=== PATIENT | female | born 1935 | race Caucasian/White ===

== ENCOUNTER 2023-06-28 10:31 | Outpatient (OUT) | payer MEDICARE, OTHER, SELFPAY ==
--- NOTE | 2023-06-28 10:34 | XR_ITS ---
[address] [address] Patient Name: JAMES WEAVER MRN: [id number] date: 1935 Sex: F Assigned Patient Location: [facility] Current Patient Location: [facility] Accession/Order Number: [id number] Exam Date: 06/28/2023 10:45 Report Date: 06/28/2023 21:00 At the request of: SHERLY MARTINEZ Procedure: XR DEXA axial skeleton EXAMINATION: XR DEXA axial skeleton, 06/28/2023 10:45 AM EDT HISTORY: Age Related Osteoporosis M81.0 COMPARISON: 2020, 2018, 2016 TECHNIQUE: Dual-energy X-ray absorptiometry (DEXA) bone density study performed for the axial skeleton. HISTORY: Age Related Osteoporosis M81.0 FINDINGS: Bone mineral density left forearm radius measures 0.488 g/sq cm. T score -3.2. WHO classification: Osteoporosis. Total bilateral femurs mean density of 0.788 g/sq cm. T score -1.7. WHO classification: Osteopenia XR/XR DEXA axial skeleton IMPRESSION: Osteoporosis. High fracture risk Electronically authenticated by: DANTE LAMAS Date: 06/28/2023 21:00
== END 2023-06-28 10:32 | disposition home or self-care (01) ==
LOC: RAD 10:32
PROVIDERS: PCP Internal Medicine; Visit Provider Physician Assistant
DX: M81.0 Age-related osteoporosis without current pathological fracture (principal)
CPT/HCPCS: 77080

== ENCOUNTER 2023-07-07 13:12 | Outpatient (OUT) | payer MEDICARE, OTHER, SELFPAY ==
--- NOTE | 2023-07-07 13:57 | PM.CN ---
Consult Note: HPI Data of Consult Patient: new to practice Requesting Physician: Candie Merchant NP Primary Care Provider: MARCOS SANTOS Consult Narrative Reason for consult: f/u Narrative: Elizabeth Ramirez a pleasant 87 year old female presents for evaluation and management of chronic left knee pain. Patient has had greater than 6 months of pain relief in the past from gel knee injections, unfortunately she received a steroid injection in left knee on 06/20/23 with 1 week of pain relief that did not provide sustaining relief. Patient rating pain today 1/10, gets up to 8/10 in left knee. Patient would like to discuss repeating gel injection. cc:: CC: Candie Merchant NP Review of Systems ROS Status of ROS 10 or more systems reviewed and unremarkable except as noted in history and below Musculoskeletal Reports: joint pain Exam Constitutional Documenting provider has reviewed patient's vital signs: yes Common normals: no apparent distress, oriented x3, healthy appearing, alert and well nourished General appearance: cooperative HENMT Common normals: normocephalic, hearing grossly normal bilaterally and moist oral mucous membranes Head and scalp: normocephalic Eye Common normals: PERRL Pupil: PERRL Neck & C-Spine Common normals: full ROM General: normal visual inspection Chest Common normals: inspection of chest normal Respiratory Common normals: normal respiratory effort, no retractions and no use of accessory muscles Extremity Left lower extremity: knee joint (crepitus on exam, enlarged diameter, mild edema. ) Other: pain ROM and ambulation in left knee Neuro Common normals: oriented x3, CN's II-XII intact bilaterally, moves all extremities, no focal motor deficits, no sensory deficits noted and deep tendon reflexes 2+ bilaterally Sensorium/orientation: alert Motor exam: strength 5/5 throughout and no movement abnormalities noted Psych Common normals: mental status grossly normal, thought process normal, cooperative, affect normal, speech normal and activity/motor behavior normal Speech: normal speech Thought process: normal thought process Assessment and Plan Assessment and Plan (1) Osteoarthritis: Plan left knee injection with viscous supplementation with Dr Varma
== END 2023-07-07 13:13 | disposition home or self-care (01) ==
LOC: PM 13:12
PROVIDERS: PCP Internal Medicine; Visit Provider Nurse Practitioner
DX: M17.12 Unilateral primary osteoarthritis, left knee (principal)
CPT/HCPCS: G0463

== ENCOUNTER 2023-07-25 13:50 | Outpatient (OUT) | payer MEDICARE, OTHER, SELFPAY ==
--- NOTE | 2023-07-25 14:21 | PM.CN ---
Consult Note: HPI Data of Consult Patient: known to practice within the last 3 years Consult date: 07/25/23 Requesting Physician: Seymour Varma MD Primary Care Provider: MARCOS SANTOS Consult Narrative Reason for consult: left knee pain Narrative: 87yof who presents for assessment. continues to have significant left knee pain. imaging reviewed, which is significant for left knee osteoarthritis. previously discussed left knee injection and is interested in proceeding. continues to stay active at home. cc:: CC: Seymour Varma MD Review of Systems ROS Status of ROS 10 or more systems reviewed and unremarkable except as noted in history and below Exam Narrative Exam Narrative: Psych-alert and oriented x 3.? Attentive and appropriate, constitutionally normal, displays normal mood and affect per situation.? There are no obvious deficits in memory, reasoning, or intellect. Extremities-lower extremities are warm with minimal edema and palpable pulses. Knee-examination of the left knee reveals tenderness to palpation over the superior, inferior, lateral, and medial aspect of the knee.? Some swelling is noted without erythema. Pain is elicited with flexion and extension of the knee both actively and passively.? Some grinding is noted with these motions.? There is no notable ligamental laxity or instability.? Coordination remains intact.? Gait remains antalgic. Constitutional Common normals: no apparent distress, oriented x3 and healthy appearing Respiratory Common normals: normal respiratory effort Effort & inspection: able to speak in complete sentences Extremity Common normals: normal to inspection Neuro Common normals: oriented x3, CN's II-XII intact bilaterally and no focal motor deficits Psych Common normals: mental status grossly normal and cooperative Assessment and Plan Assessment and Plan (1) Osteoarthritis of left knee: Plan 87yof who presents for assessment. failed conservative measures. continues to have left knee pain. has had previous relief with left knee injection, so will repeat today. she is in agreement. medications reviewed, no changes. follow up in 3 months. Procedure: Left knee injection Medication: Durolane (hyaluronic acid) I explained the details of the procedure to the patient including the risks, benefits and alternatives. We had an informed discussion and the patient verbalized understanding and signed the consent form. All questions were answered appropriately.? A time out was performed.? After obtaining a comfortable seated position, the left knee was prepped with alcohol x3. A syringe containing the above medication was attached to a 25 guage, 1.5 inch needle under strict aseptic technique. The lateral tibial plateau was palpated.? The needle was then advanced through the subcutaneous tissue in a medial and superior direction towards the joint space.? The contents of the syringe were gently injected without any resistance. The needle was removed and pressure was applied to the injection site to decrease the incidence of ecchymosis and hematoma formation.? A sterile bandage was applied.
== END 2023-07-25 13:51 | disposition home or self-care (01) ==
LOC: PM 13:50
PROVIDERS: PCP Internal Medicine; Visit Provider Anesthesiology
DX: M17.12 Unilateral primary osteoarthritis, left knee (principal)
CPT/HCPCS: 20610; J7318

== ENCOUNTER 2023-10-26 10:48 | Outpatient (OUT) | payer MEDICARE, OTHER, SELFPAY ==
--- OUTSIDE RECORDS SUMMARY | 2023-10-26 11:15 | XMS_ITS | CCD ---
Author Name Unknown Address [address] [place] [address] [facility] Team Providers Care Front Office Supervisor Name Role Phone Sadiq Barton Unavailable Dante Renee Unavailable NILCinthia, DR LOPEZ Attending Unavailable AMBRIZ, DR RODRÍGUEZ Consulting Unavailable AMBRIZ, DR RODRÍGUEZ Primary Care Unavailable NILL, DR LOPEZ Admitting Unavailable NILL, DR LOPEZ Consulting Unavailable AMBRIZ, DR RODRÍGUEZ Primary Care Unavailable NADERER, DR AKIKO Wheat Admitting Unavailable DEANN, DR JORGE LUIS Adair Consulting Unavailable TANIEREMana, DR AKIKO Wheat Attending Unavailable BE, DR ADONAY Hu Consulting Unavailable ADAMS, DR DANTE Smith Consulting Unavailable NADERER, DR AKIKO Wheat Consulting Unavailable RUTLEDGE, ARNEL Consulting Unavailable RODRIGUEZ, WINCHA Consulting Unavailable NASCIMENTO, DAYANNA Consulting Unavailable DITTKannan, SADIQ Consulting Unavailable RYNE, SADIQ Attending Unavailable DISADIQ CARRION Admitting Unavailable AMBRIZ, DR RODRÍGUEZ Primary Care Unavailable NILL, DR LOPEZ Consulting Unavailable NILL, DR LOPEZ Attending Unavailable NILL, DR LOPEZ Admitting Unavailable AMBRIZ, DR RODRÍGUEZ Primary Care Unavailable NILL, DR LOPEZ Consulting Unavailable DEXTER TAY Attending Unavailable JASVIR, DEXTER Admitting Unavailable AMBRIZ, DR RODRÍGUEZ Primary Care Unavailable JASVIR, DEXTER Consulting Unavailable JASVIR, DEXTER Consulting Unavailable JASVIR, DEXTER Attending Unavailable DEXTER TAY Admitting Unavailable AMBRIZ, DR RODRÍGUEZ Primary Care Unavailable NILL, DR LOPEZ Consulting Unavailable NILL, DR LOPEZ Attending Unavailable DANIELLE, DR RODRÍGUEZ Primary Care Unavailable NILL, DR LOPEZ Admitting Unavailable NILL, DR LOPEZ Consulting Unavailable NILL, DR LOPEZ Attending Unavailable AMBRIZ, DR RODRÍGUEZ Primary Care Unavailable NILL, DR LOPEZ Admitting Unavailable MAGNOLIA RAUSCH Consulting Unavailable MD Fernando Diamond Emergency Provider LEANN Ambriz Primary Care Provider [phone] Fernando Diamond Attending Unavailable Fernando Diamond Admitting Unavailable Conrado Ambriz Primary Care Unavailable VELASQUEZ MORALES Attending Unavailable CONRADO AMBRIZ Attending Unavailable VELASQUEZ MORALES Attending Unavailable Allergies Allergy Classification Reported Allergen(s) Allergy Type Date of Onset Reaction(s) Facility (2 sources) Adhesive agent Drug allergy Unknown [facility] Other (2 sources) Ciprofloxacin Drug Allergy Unknown [facility] Other (3 sources) HYLAN G-F 20 Drug Allergy 12-14-19 23 [facility] (3 sources) moxifloxacin Drug Allergy 12-14-19 23 hives [facility] (3 sources) Simvastatin Drug Allergy 12-14-19 stomach upset, Diarrhea/Vomit [facility] (2 sources) Temazepam Drug Allergy rash, sore mouth [facility] Other (1 source) Ciprofloxacin Drug Allergy [facility] (1 source) HYLAN G-F 20 Drug Allergy 12-12-19 15 [facility] (1 source) moxifloxacin Drug Allergy 06-08-19 90 [facility] (1 source) Simvastatin Drug Allergy 12-12-19 15 [facility] (1 source) bandaid Allergy to substance 12-14-19 [facility] Medications Current Medications Medication Drug Class(es) Dates Sig (Normalized) Sig (Original) 8 hr acetaminophen 650 mg extended release oral tablet (1 source) Start: 09-09-2021 Acetaminophen (Tylenol 8 Hour) 650 mg Tablet Extended Release Active 1300 MG PO Twice daily September 09, 2021 1:00am amLODIPine 5 mg oral tablet (3 sources) Dihydropyridine Calcium Channel Dasia Start: 09-09-2021 take 5 mg by mouth once daily Amlodipine Active 5 MG PO Daily September 09, 2021 1:00am take 1 tablet by erika th every twenty-four hours amLODIPine Besylate 5 MG 1 tablet Orally Once a day Active baclofen 10 mg oral tablet (2 sources) gamma-Aminobutyric Acid-ergic Agonist take 2 tablets by mouth once daily at mealtime Baclofen 10 MG 2 tablets with food or milk Orally Once a day Active benazepril hydrochloride 20 mg oral tablet (3 sources) Angiotensin Converting Enzyme Inhibitor Start: 022 take 20 mg by mouth once daily Benazepril Active 20 MG PO Daily September 09, 2021 1:00am take 1 tablet by erika th every twenty-four hours Benazepril HCl 20 MG 1 tablet Orally Onc e a day Active Calcium (2 sources) Phosphate Binder, Calcium Calcium + D3 Active calcium carbonate 1500 mg oral tablet (1 source) Start: 09-09-19 take 1 tablet by mouth once daily Calcium Carbonate (Calcium 600) 600 mg calcium (1,500 mg) Tablet Active 600 MG PO Daily September 09, 2021 1:00am cholecalciferol 0.025 mg oral tablet (3 sources) Vitamin D Start: 09-09-19 take 1 tablet by mouth once daily Cholecalciferol (Vitamin D3) (Vitamin D3) 25 mcg (1,000 unit) Tablet Active 25 MCG PO Daily September 09, 2021 1:00am take 1 tablet by erika th every twenty-four hours Vitamin D 25 MCG (1000 UT) 1 tablet Orally Once a day Active chondroitin sulfates 200 mg / glucosamine hydrochloride 250 mg oral tablet (1 source) Start: 09-09-2021 take 1 tablet by mouth once daily Glucosamine-Chondroitin (Osteo Bi-Flex) 250-200 mg Tablet Active 1 TAB PO Daily September 09, 2021 1:00am cinnamon bark 500 mg oral capsule (1 source) Start: 09-09-2021 take 1 capsule by mouth once daily Cinnamon Bark (Cinnamon) 500 mg Capsule Active 500 MG PO Daily September 09, 2021 1:00am cinnamon preparation 500 mg oral tablet (2 sources) Non-Standardiz ed Food Allergenic Extract Cinnamon 500 MG as d irected Orally Active diphenhydrAMINE (2 sources) Histamine-1 Receptor Antagonist Benadryl Active Eye Vitamins (2 sources) Eye Vitamins Act alisia gabapentin 300 mg oral capsule (3 sources) Anti-epileptic Agent Start: 09-09-2021 take 300 mg by mouth twice daily Gabapentin Active 300 MG PO Twice daily September 09, 2021 1:00am take 1 capsule by mo uth every twenty-four hours Gabapentin 300 MG 1 capsule Orally Once a day Active glyBURIDE 5 mg oral tablet (3 sources) Sulfonylurea Start: 09-09-2021 take 5 mg by mouth twice daily Glyburide Active 5 MG PO Twice daily September 09, 2021 1:00am take 2 tablets by [facility] every twenty-four hours glyBURIDE 5 MG 2 tablets Orally Once a day Active hydrocortisone valerate 2 mg/ml topical cream (2 sources) Corticosteroid Hydrocortisone V alerate 0.2 % 1 application Externally Once a day Active levothyroxine sodium 0.05 mg oral tablet (3 sources) l-Thyroxine Start: take 50 ug by mouth once daily Levothyroxine Active 50 MCG PO Daily September 09, 2021 1:00am [facility] once daily in the morning Synthroid 50 MCG 1 tablet in the morning on an empty stomach Orally Once a day Active loperamide hydrochloride 2 mg oral tablet (4 sources) Opioid Agonist Start: 08-19-2021 take 1 tablet by mouth every twenty-four hours Loperamide HCl 2 MG 1 tablet as needed Orally daily for 30 days Jul, Active take 1 tablet by mouth every six hours Imodium A-D 2 MG 1 tablet as needed Orally Four times a day Active Magnesium (1 source) Start: 09-09-2021 take 400 mg by mouth once daily Magnesium Active 400 MG PO Daily September 09, 2021 1:00am melatonin 10 mg oral tablet (1 source) Start: 09-09-2021 take 10 mg by mouth once daily at bedtime Melatonin Active 10 MG PO Daily at bedtime September 09, 2021 1:00am potassium chloride 10 meq extended release oral tablet (2 sources) take 1 tablet by mouth every twelve hours Potassium Chloride ER 10 MEQ 1 tablet with food Orally Twice a day Active probiotic (2 sources) probiotic Active Psyllium Husk (1 source) Start: 09-09-2021 take 0.4 g by mouth once daily Psyllium Husk Active 0.4 GM PO Daily September 09, 2021 1:00am rOPINIRole 0.25 mg oral tablet (3 sources) Nonergot Dopamine Agonist Start: 09-09-2021 take 0.5 mg by mouth once daily at bedtime Ropinirole Active 0.5 MG PO Daily at bedtime September 09, 2021 1:00am take 2 tablets by [facility] every twenty-four hours rOPINIRole HCl 0.25 MG 2 tablets Orally Once a day Active Super Stress B-Complex CR (2 sources) Super Stress B-Complex CR Active triamcinolone acetonide 0.055 mg/actuat metered dose nasal spray (2 sources) Corticosteroid take 1 spray(s) nasal route once daily Nasacort Allergy 24HR 55 MCG/ACT 1 spray in each nostril Nasally Once a day Active Vit C-Zn Gluc-Herbal No.325 (Elderberry Zinc Vit C) 90-15 mg Lozenge (1 source) Start: 09-09-2021 Vit C-Zn Gluc-Herbal No.325 (Elderberry Zinc Vit C) 90-15 mg Lozenge Active 2 LOZENGE PO Daily September 09, 2021 1:00am Vitamin A 2400 MCG (8000 UT) (2 sources) Vitamin A 2400 M CG (8000 UT) as directed Orally Active Vitamin B Complex (1 source) Start: 09-09-2021 take 1 tablet by mouth once daily Vitamin B Complex Active 1 TAB PO Daily September 09, 2021 1:00am Vitamin C 1000 MG (2 sources) take 1 tablet by mouth once daily Vitamin C 1000 MG 1 tablet Orally Once a day Active Vitamin E (1 source) Start: 09-09-2021 take 1 capsule by mouth once daily Vitamin E Active 1 CAP PO Daily September 09, 2021 1:00am Vitamin E 400 UNIT (2 sources) take 1 capsule by mouth once daily Vitamin E 400 UNIT 1 capsule Orally Once a day Active Vitamins A,C,D-Ovtz-Thruxj (Preservision Areds) 14,320-226-200 kdqs-ie-bizn Capsule (1 source) Start: 09-09-2021 take 2 capsules by mouth once daily Vitamins A,C,G-Snwf-Jlrpju (Preservision Areds) 14,320-226-200 saor-nj-lhoi Capsule Active 2 CAP PO Daily September 09, 2021 1:00am Problems Active Problems Problem Classification Problem Date Documented Da te Episodic/Chronic Cardiac dysrhythmias (1 source) Cardiac arrhythmia, unspecified; Translations: [CARDIAC ARRHYTHMIA UNSPECIFIED] Onset: 05-27-2021 Chronic Conditions associated with dizziness or vertigo (1 source) Dizziness and giddiness; Translations: [DIZZINESS AND GIDDINESS] Onset: 05-06-2022 Episodic Diabetes mellitus with complications (1 source) Type 2 diabetes mellitus with hyperglycemia; Translations: [TYPE 2 DM W/HYPERGLYCEMIA] Onset: 05-06-2022 Chronic Diabetes mellitus without complication (1 source) Type 2 diabetes mellitus without complications; Translations: [TYPE 2 DM WITHOUT COMPLICATIONS] Onset: 05-27-2021 Chronic Diverticulosis and diverticulitis (1 source) Diverticulosis of large intestine without perforation or abscess without bleeding; Translations: [DVRTCLOS LG INT NO PERF/ABSC W/O BL] Onset: 05-27-2021 Chronic Essential hypertension (1 source) Essential (primary) hypertension; Translations: [ESSENTIAL PRIMARY HYPERTENSION] Onset: 05-06-2022 Chronic Malaise and fatigue (1 source) Weakness; Translations: [WEAKNESS] Onset: 05-06-2022 Episodic Other aftercare (1 source) FPC (current) use of oral hypoglycemic drugs; Translations: [FCI USE ORAL HYPOGLYCEMIC DX] Onset: 05-06-2022 Episodic Other aftercare (1 source) Other long line teamster (current) drug therapy; Translations: [OTH ITINERANT TEACHER ASSISTANT CURRENT DRUG THERAPY] Onset: 05-06-2022 Episodic Other gastrointestinal disorders (1 source) History of rectal bleeding; Translations: [Personal history of other diseases of the digestive system] 12-13-2022 Episodic Septicemia (except in labor) (1 source) Sepsis, unspecified organism; Translations: [SEPSIS UNSPECIFIED ORGANISM] Onset: 05-06-2022 Episodic Syncope (1 source) Syncope and collapse; Translations: [SYNCOPE AND COLLAPSE] Onset: 05-06-2022 Episodic Unclassified (1 source) CONTACT W/AND (SUSP) EXPOS COVID-19; Translations: [CONTACT W/AND (SUSP) EXPOS COVID-19] Onset: 05-31-2021 Urinary tract infections (3 sources) Urinary tract infection, site not specified; Translations: [UTI SITE NOT SPECIFIED] Onset: 04-30-2022 Episodic Past or Other Problems Problem Classification Problem Date Documented Da te Episodic/Chronic Anal and rectal conditions (1 source) Rectal polyp; Translations: [RECTAL POLYP] Onset: 05-27-2021 Episodic Gastrointestinal hemorrhage (9 sources) Hemorrhage of anus and rectum; Translations: [Melena] Onset: 05-25-2021 Episodic Other and unspecified benign neoplasm (1 source) Personal history of colonic polyps; Translations: [PERSONAL HISTORY OF COLONIC POLYPS] Onset: 06-02-2021 Episodic Other gastrointestinal disorders (2 sources) Incontinence of feces; Translations: [Full incontinence of feces] Episodic Other gastrointestinal disorders (2 sources) Diarrhea; Translations: [Diarrhea, unspecified] Episodic Other gastrointestinal disorders (5 sources) Diarrhea, unspecified; Translations: [DIARRHEA UNSPECIFIED] Onset: 08-19-2021 Resolved: 08-19-2021 Episodic Other gastrointestinal disorders (2 sources) Full incontinence of feces; Translations: [FULL INCONTINENCE OF FECES] Onset: 08-19-2021 Resolved: 08-19-2021 Episodic Other gastrointestinal disorders (1 source) Change in bowel habit; Translations: [CHANGE IN BOWEL HABIT] Onset: 05-27-2021 Episodic Residual codes; unclassified (1 source) Acquired absence of both cervix and uterus; Translations: [ACQUIRED ABSENCE BOTH CERVIX AND UTERUS] Onset: 05-27-2021 Episodic Residual codes; unclassified (1 source) Acquired absence of other specified parts of digestive tract; Translations: [ACQ ABSENCE OTH PART DIGESTV TRACT] Onset: 05-27-2021 Episodic Results Test Name Value Interpretation Reference Range Facility Activated partial thrombopla stin time (aPTT) in platelet poor plasma by coagulation aOrdered By: Fernando Diamond on 12-13-2022 aPTT Coag (PPP) [Time] 31.1 s 25.1-36.[address] [facility] Basic Metabolic Panelon 11-27 Anion gap [Moles/Vol] 12.5 mmol/L Normal 6.0-15.[address] [facility] Comment on above: Performed By: #### B MP #### [facility] [address] [place] [address] [place] Calcium [Mass/Vol] 8.8 mg/dL Normal 8.6-10.3 [facility] Comment on above: Performed By: #### B MP #### [facility] [address] [place] [address] [place] Chloride [Moles/Vol] 103 mmol/L Normal 98-107 [facility] Comment on above: Performed By: #### B MP #### [facility] [address] [place] [id number] RUST CO2 [Moles/Vol] 28.3 mmol/L Normal 21.0-31.0 [facility] Comment on above: Performed By: #### B MP #### [facility] [address] Creatinine [Mass/Vol] 0.77 mg/dL Normal 0.60-1.20 [facility] Comment on above: Performed By: #### B MP #### [place] [address] [place] Creatinine Clr Calc Pharmacy 43.59 Normal [facility] Comment on above: Result Comment: PERF ORMED BY: [place] [address] PATHOLOGIST BIRD TENDER DANIELLE HINDS M.D. Performed By: #### B MP #### [place] [address] [place] GFR/1.73 sq M.predicted MDRD (S/P/Bld) [Vol rate/Area] mL/min/{1.73_m2} Normal [facility] Comment on above: Performed By: #### B MP #### [address] Glucose [Mass/Vol] 148 mg/dL High 70-100 [facility] Comment on above: Result Comment: [facility] Glucose Reference Range is dependent on time and content of last meal. Glucose of more than 200 mg/dL in a nonstressed, ambulatory subject supports the diagnosis of Diabetes Mellitus. ADA recommended reference range Performed By: #### B MP #### [place] [address] [place] Potassium [Moles/Vol] 3.8 mmol/L Normal 3.5-5.1 [facility] Comment on above: Performed By: #### B MP #### [place] [address] [place] Sodium [Moles/Vol] 140 mmol/L Normal 136-145 [facility] Comment on above: Performed By: #### B MP #### [place] [address] [place] Urea nitrogen [Mass/Vol] 17 mg/dL Normal 7-25 [facility] Comment on above: Performed By: #### B MP #### [facility] [address] [place] [address] [place] Basophils Auto (Bld) [#/Vol] Ordered By: Fernando Diamond on 12-13-2022 Basophils (Bld) [#/Vol] 0.1 10*3/uL 0.0-0.2 [facility] Basophils/100 WBC Auto (Bld) Ordered By: Fernando Diamond on 12-13-2022 Basophils/100 WBC (Bld) 0.9 % . [facility] Bilirubin Test strip Ql (U)O rdered By: Fernando Diamond on 12-13-2022 Bilirubin Ql (U) Negative Negative [facility] Calcium [Mass/volume] in Ser um or PlasmaOrdered By: Fernando Diamond on 12-13-2022 Calcium [Mass/Vol] 8.8 mg/dL 8.6-10.3 [facility] Carbon dioxide, total [Moles /volume] in Serum or PlasmaOrdered By: Fernando Diamond on 12-13-2022 CO2 [Moles/Vol] 28.3 mmol/L 21.0-31.0 [facility] Chloride [Moles/volume] in S perez or PlasmaOrdered By: Fernando Diamond on 12-13-2022 Chloride [Moles/Vol] 103 mmol/L 98-107 [facility] Color Auto (U)Ordered By: Andreea Diamond on 12-13-2022 Color (U) Yellow Yellow [facility] Complete Blood Count Auto Di ffon 12-13-2022 Basophils (Bld) [#/Vol] 0.1 10*3/uL Normal 0.0-0.2 [facility] Comment on above: Result Comment: PERF ORMED BY: [place] [address] PATHOLOGIST BIRD TENDER DANIELLE HINDS M.D. Performed By: #### P T, CBC, PTT #### [facility] [address] Basophils/100 WBC (Bld) 0.9 % Normal . [facility] Comment on above: Performed By: #### P T, CBC, PTT #### [facility] [address] Eosinophils (Bld) [#/Vol] 0.0 10*3/uL Normal 0.0-0.45 [facility] Comment on above: Performed By: #### P T, CBC, PTT #### [address] Eosinophils/100 WBC (Bld) 0.4 % Normal . [facility] Comment on above: Performed By: #### P T, CBC, PTT #### [address] Erythrocyte distribution width (RBC) [Ratio] 15.3 % Normal 11.9-15.3 [facility] Comment on above: Performed By: #### P T, CBC, PTT #### [address] Hematocrit (Bld) [Volume fraction] 45.2 % Normal 34.0-46.4 [facility] Comment on above: Performed By: #### P T, CBC, PTT #### [address] Hemoglobin (Bld) [Mass/Vol] 15.1 g/dL Normal 11.8-15.4 [facility] Comment on above: Performed By: #### P T, CBC, PTT #### [address] Lymphocytes (Bld) [#/Vol] 2.0 10*3/uL Normal 1.00-4.8 [facility] Comment on above: Performed By: #### P T, CBC, PTT #### [address] Lymphocytes/100 WBC (Bld) 18.3 % Normal . [facility] Comment on above: Performed By: #### P T, CBC, PTT #### [address] MCH (RBC) [Entitic mass] 28.7 pg Normal 24.7-34.3 [facility] Comment on above: Performed By: #### P T, CBC, PTT #### [facility] [address] [place] [address] [place] MCV (RBC) [Entitic vol] 85.9 fL Normal 80-100 [facility] Comment on above: Performed By: #### P T, CBC, PTT #### [facility] [address] Mean Corpuscular HGB Conc 33.4 g/dL Normal 32.0-35.0 [facility] Comment on above: Performed By: #### P T, CBC, PTT #### [facility] [address] [place] [address] [place] Monocytes (Bld) [#/Vol] 0.7 10*3/uL Normal 0.0-0.8 [facility] Comment on above: Performed By: #### P T, CBC, PTT #### [address] Monocytes/100 WBC (Bld) 17.04 % Normal 0.00-20.00 [facility] Comment on above: Performed By: #### P T, CBC, PTT #### [facility] [address] [place] [address] [place] Monocytes/100 WBC (Bld) 6.0 % Normal . [facility] Comment on above: Performed By: #### P T, CBC, PTT #### [place] [address] [place] Neutrophils (Bld) [#/Vol] 8.1 10*3/uL High 1.8-7.7 [facility] Comment on above: Performed By: #### P T, CBC, PTT #### [facility] [address] [place] [address] [place] Neutrophils/100 WBC (Bld) 74.4 % Normal . [facility] Comment on above: Performed By: #### P T, CBC, PTT #### [facility] [address] [place] [address] [place] NRBC% 0.1 /100{WBC} Normal 0-0.5 [facility] Comment on above: Performed By: #### P T, CBC, PTT #### [facility] [address] Platelet mean volume (Bld) [Entitic vol] 8.6 fL Normal 6.3-10.7 [facility] Comment on above: Performed By: #### P T, CBC, PTT #### [facility] [address] Platelets (Bld) [#/Vol] 276 10*3/uL Normal 150-450 [facility] Comment on above: Performed By: #### P T, CBC, PTT #### [facility] [address] RBC (Bld) [#/Vol] 5.26 10*6/uL High 3.60-5.00 [facility] Comment on above: Performed By: #### P T, CBC, PTT #### [facility] [address] WBC (Bld) [#/Vol] 11.0 10*3/uL Normal 3.8-11.6 [facility] Comment on above: Performed By: #### P T, CBC, PTT #### [facility] [address] Creatinine [Mass/volume] in Serum or PlasmaOrdered By: Fernando Diamond on 12-13-2022 Creatinine [Mass/Vol] 0.77 mg/dL 0.60-1.20 [facility] Eosinophils Auto (Bld) [#/Vo l]Ordered By: Fernando Diamond on 12-13-2022 Eosinophils (Bld) [#/Vol] 0.0 10*3/uL 0.0-0.45 [facility] Eosinophils/100 WBC Auto (Bl d)Ordered By: Fernando Diamond on 12-13-2022 Eosinophils/100 WBC (Bld) 0.4 % . [facility] Erythrocyte distribution wid th Auto (RBC) [Ratio]Ordered By: Fernando Diamond on 12-13-2022 Erythrocyte distribution width (RBC) [Ratio] 15.3 % 11.9-15.3 [facility] Fecal occult blood detection by immunochemistryOrdered By: Fernando Diamond on 12-13-2022 Hemoglobin.gastrointesti nal Ql (Stl) [facility] Glucose [Mass/volume] in Ser um or PlasmaOrdered By: Fernando Diamond on 12-13-2022 Glucose [Mass/Vol] 148 mg/dL 70-100 [facility] Comment on above: ADA recommended refe rence rangeRandom Glucose Reference Range is dependent on time and content of last meal. Glucose of more than 200 mg/dL in a nonstressed, ambulatory subject supports the diagnosis of Diabetes Mellitus. Hematocrit Auto (Bld) [Volum e fraction]Ordered By: Fernando Diamond on 12-13-2022 Hematocrit (Bld) [Volume fraction] 45.2 % 34.0-46.4 [facility] Hemoglobin [Mass/volume] in BloodOrdered By: Fernando Diamond on 12-13-2022 Hemoglobin (Bld) [Mass/Vol] 15.1 g/dL 11.8-15.4 [facility] Ketones Auto test strip (U) [Mass/Vol]Ordered By: Fernando Diamond on 12-13-2022 Ketones (U) [Mass/Vol] Negative Negative [facility] - CoagulationOrde red By: Fernando Diamond on 12-13-2022 PT Coag (PPP) [Time] 11.4 s 9.0-12.9 [facility] Leukocytes [#/volume] correc heidy for nucleated erythrocytes in Blood by Automated counOrdered By: Fernando Diamond on 12-13-2022 WBC corrected for nucl RBC Auto (Bld) [#/Vol] 11.0 10*3/uL 3.8-11.6 [facility] Lymphocytes Auto (Bld) [#/Vo l]Ordered By: Fernando Diamond on 12-13-2022 Lymphocytes (Bld) [#/Vol] 2.0 10*3/uL 1.00-4.8 [facility] Lymphocytes/100 WBC Auto (Bl d)Ordered By: Fernando Diamond on 12-13-2022 Lymphocytes/100 WBC (Bld) 18.3 % . [facility] MCH Auto (RBC) [Entitic mass ]Ordered By: Fernando Diamond on 12-13-2022 MCH (RBC) [Entitic mass] 28.7 pg 24.7-34.3 [facility] MCHC Auto (RBC) [Mass/Vol]Or dered By: Fernando Diamond on 12-13-2022 MCHC (RBC) [Mass/Vol] 33.4 g/dL 32.0-35.0 [facility] MCV Auto (RBC) [Entitic vol] Ordered By: Fernando Diamond on 12-13-2022 MCV (RBC) [Entitic vol] 85.9 fL 80-100 [facility] Monocyte distribution width [Entitic volume] in Blood by AutomatedOrdered By: Fernando Diamond on 12-13-2022 Monocyte distribution width Auto (Bld) [Entitic vol] 17.04 % 0.00-20.00 [facility] Monocytes Auto (Bld) [#/Vol] Ordered By: Fernando Diamond on 12-13-2022 Monocytes (Bld) [#/Vol] 0.7 10*3/uL 0.0-0.8 [facility] Monocytes/100 WBC Auto (Bld) Ordered By: Fernando Diamond on 12-13-2022 Monocytes/100 WBC (Bld) 6.0 % . F [facility] Neutrophils Auto (Bld) [#/Vo l]Ordered By: Fernando Diamond on 12-13-2022 Neutrophils (Bld) [#/Vol] 8.1 10*3/uL 1.8-7.7 [facility] Neutrophils/100 WBC Auto (Bl d)Ordered By: Fernando Diamond on 12-13-2022 Neutrophils/100 WBC (Bld) 74.4 % . [facility] Nitrite Test strip Ql (U)Ord ered By: Fernando Diamond on 12-13-2022 Nitrite Ql (U) Negative Negative [facility] No Panel InformationOrdered By: Fernando Diamond on 12-13-2022 Estimated GFR (CKD-EPI) > 60.0 mL/Min [facility] Creatinine Clearance (Chem 43.59 [facility] Nucleated erythrocytes [Pres ence] in Blood by Automated countOrdered By: Fernando Diamond on 12-13-2022 Nucleated RBC Auto Ql (Bld) 0.1 /100{WBC} 0-0.5 [facility] Partial Thromboplastin Timeo n 12-13-2022 aPTT Coag (Bld) [Time] 31.1 s Normal 25.1-36.5 [facility] Comment on above: Result Comment: PERF ORMED BY: [facility] [address] [place] [address] PATHOLOGIST BIRD TENDER DANIELLE HINDS M.D. Performed By: #### P T, CBC, PTT #### [facility] [address] Platelet mean volume Auto (B ld) [Entitic vol]Ordered By: Fernando Diamond on 12-13-2022 Platelet mean volume (Bld) [Entitic vol] 8.6 fL 6.3-10.7 [facility] Platelet poor plasma interna tional normalized ratio (INR) by coagulation assay (relatOrdered By: Fernando Diamond on 12-13-2022 INR Coag (PPP) [Relative time] 1.0 {INR} [facility] Comment on above: INR Therapeutic Rang e A) Pre- and Peroperative OAT started two weeks before surgery. NOT HIP SURGERY: 1.5 - 2.5 HIP SURGERY: 2 - 3B) Primary and secondary prevention of venous THROMBOSIS: 2 - 3C) Active venous thrombosis, pulmonary embolismand prevention of recurrent venous thrombosis: 2 - 3D) Prevention of arterial thromboembolismincluding patients with mechanical heart valves: 3 - 4.5 Platelets Auto (Bld) [#/Vol] Ordered By: Fernando Diamond on 12-13-2022 Platelets (Bld) [#/Vol] 276 10*3/uL 150-450 [facility] Potassium [Moles/volume] in Serum or PlasmaOrdered By: Fernando Diamond on 12-13-2022 Potassium [Moles/Vol] 3.8 mmol/L 3.5-5.1 [facility] Protein Auto test strip (U) [Mass/Vol]Ordered By: Fernando Diamond on 12-13-2022 Protein (U) [Mass/Vol] Negative Negative [facility] Prothrombin Time INRon 12-13 INR Coag (PPP) [Relative time] 1.0 {INR} Normal [facility] Comment on above: Result Comment: INR Therapeutic Range A) Pre- and Peroperative OAT started two weeks before surgery. NOT HIP SURGERY: 1.5 - 2.5 HIP SURGERY: 2 - 3 B) Primary and secondary prevention of venous THROMBOSIS: 2 - 3 C) Active venous thrombosis, pulmonary embolism and prevention of recurrent venous thrombosis: 2 - 3 D) Prevention of arterial thromboembolism including patients with mechanical heart valves: 3 - 4.5 Performed By: #### P T, CBC, PTT #### [facility] [address] [id number] [facility] PT Coag (PPP) [Time] 11.4 s Normal 9.0-12.9 [facility] Comment on above: Performed By: #### P T, CBC, PTT #### [facility] [address] RBC Auto (Bld) [#/Vol]Ordere d By: Fernando Diamond on 12-13-2022 RBC (Bld) [#/Vol] 5.26 10*6/uL 3.60-5.00 [facility] Serum or plasma anion gap de terminationOrdered By: Fernando Diamond on 12-13-2022 Anion gap [Moles/Vol] 12.5 mmol/L 6.0-15.[address] [facility] Sodium [Moles/volume] in Ser um or PlasmaOrdered By: Fernando Diamond on 12-13-2022 Sodium [Moles/Vol] 140 mmol/L 136-145 [facility] Specific gravity Auto test s trip (U) [Rel density]Ordered By: Fernando Diamond on 12-13-2022 Specific gravity (U) [Rel density] 1.010 1.001-1.03 0 [facility] Stool Occult Blood (Guaiac)o n 12-13-2022 Stool Occult Blood (Guaiac) Occult Blood Negative for Occult Blood by Guaiac Methodology ---- Reference range = Negative PERFORMED BY: [place] [address] PATHOLOGIST BIRD TENDER DANIELLE HINDS M.D. [facility] Comment on above: Performed By: #### O B(GUAIAC) #### [facility] [address] [place] [address] Urea nitrogen [Mass/volume] in Serum or PlasmaOrdered By: Fernando Diamond on 12-13-2022 Urea nitrogen [Mass/Vol] 17 mg/dL 03-22 [facility] Urinalysison 12-13-2022 Appearance (U) Clear Normal Clear [facility] Comment on above: Order Comment: Name Collection Type:: Clean-Voided Midstream Performed By: #### U A #### [facility] [address] [place] [address] [place] Bilirubin,Urine Negative Normal Negative [facility] Comment on above: Order Comment: Name Collection Type:: Clean-Voided Midstream Performed By: #### U A #### [address] Color (U) Yellow Normal Yellow [facility] Comment on above: Order Comment: Name Collection Type:: Clean-Voided Midstream Performed By: #### U A #### [place] [address] [place] Glucose Ql (U) Normal Normal Normal [facility] Comment on above: Order Comment: Name Collection Type:: Clean-Voided Midstream Performed By: #### U A #### [address] Ketones Ql (U) Negative Normal Negative [facility] Comment on above: Order Comment: Name Collection Type:: Clean-Voided Midstream Performed By: #### U A #### [facility] [address] [place] [address] [place] Leukocyte esterase Test strip Ql (U) Negative Normal Negative [facility] Comment on above: Order Comment: Name Collection Type:: Clean-Voided Midstream Performed By: #### U A #### [place] [address] [place] Nitrite,Urine Negative Normal Negative [facility] Comment on above: Order Comment: Name Collection Type:: Clean-Voided Midstream Performed By: #### U A #### [place] [address] [place] Occult Blood,Urine Negative Normal Negative [facility] Comment on above: Order Comment: Name Collection Type:: Clean-Voided Midstream Result Comment: PERF ORMED BY: [place] [address] PATHOLOGIST BIRD TENDER DANIELLE HINDS M.D. Performed By: #### U A #### [facility] [address] [place] [address] pH (U) 7.5 [pH] Normal 5.0-9.0 [facility] Comment on above: Order Comment: Name Collection Type:: Clean-Voided Midstream Performed By: #### U A #### [address] Protein,Urine Negative Normal Negative [facility] Comment on above: Order Comment: Name Collection Type:: Clean-Voided Midstream Performed By: #### U A #### [address] Specificy [place],Urine 1.010 Normal 1.00 1-1.03 0 [facility] Comment on above: Order Comment: Name Collection Type:: Clean-Voided Midstream Performed By: #### U A #### [address] Urobilinogen,Urine Normal Normal Normal [facility] Comment on above: Order Comment: Name Collection Type:: Clean-Voided Midstream Performed By: #### U A #### [address] Urine clarity by refractomet ry automatedOrdered By: Fernando Diamond on 12-13-2022 Clarity Refractometry automated (U) Clear Clear [facility] Urine glucose measurement by automated test strip (mass/volume)Ordered By: Fernando Diamond on 12-13-2022 Glucose Auto test strip (U) [Mass/Vol] Normal mg/dL Normal [facility] Urine hemoglobin detection b y automated test stripOrdered By: Fernando Diamond on 12-13-2022 Hemoglobin Auto test strip Ql (U) Negative Negative [facility] Urine leukocyte esterase det ection by automated test stripOrdered By: Fernando Diamond on 12-13-2022 Leukocyte esterase Auto test strip Ql (U) Negative Negative [facility] Urobilinogen Auto test strip (U) [Mass/Vol]Ordered By: Fernando Diamond on 12-13-2022 Urobilinogen (U) [Mass/Vol] Normal mg/dL Normal [facility] WBC Auto (Bld) [#/Vol]Ordere d By: Fernando Diamond on 12-13-2022 WBC (Bld) [#/Vol] 11.0 10*3/uL 3.8-11.6 [facility] pH Auto test strip (U)Ordere d By: Fernando Diamond on 12-13-2022 pH (U) 7.5 [pH] 5.0-9.0 [facility] CBC AUTO DIFFon 05-01-2022 BASO # 0.0 103/ul Normal 0.0-0.1 [facility] Comment on above: Performed By: #### C BC #### [facility] [address] [place] [address] Dr. Graeme Webster Basophils/100 WBC (Bld) 0.3 % Normal 0.2-2.0 [facility] Comment on above: Performed By: #### C BC #### [facility] [address] [place] [address] Dr. Graeme Webster EO # 0.3 103/ul Normal 0.0-0.7 [facility] Comment on above: Performed By: #### C BC #### [facility] [address] [place] [address] Dr. Graeme Webster Eosinophils/100 WBC (Bld) 2.5 % Normal 0.9-7.0 [facility] Comment on above: Performed By: #### C BC #### [facility] [address] [place] [address] Dr. Graeme Webster Erythrocyte distribution width (RBC) [Ratio] 15.2 % Critically high 11.0-15.0 [facility] Comment on above: Performed By: #### C BC #### [facility] [address] [place] [address] Dr. Graeme Webster Hematocrit (Bld) [Volume fraction] 34.9 % Critically low 36.0-48.0 [facility] Comment on above: Performed By: #### C BC #### [facility] [address] [place] [address] Dr. Graeme Webster Hemoglobin (Bld) [Mass/Vol] 11.1 g/dL Critically low 12.0-16.0 [facility] Comment on above: Performed By: #### C BC #### [facility] [address] [address] [address] Graeme Webster IG # 0.05 10e3/ul Critically high 0.00-0.03 [facility] Comment on above: Performed By: #### C BC #### [facility] [address] [place] [address] Dr. Graeme Webster IG % 0.5 % Normal 0.0-0.5 [facility] Comment on above: Performed By: #### C BC #### [facility] [address] [place] [address] Dr. Graeme Webster LYMPH # 1.1 103/ul Critically low 1.2-3.8 [facility] Comment on above: Performed By: #### C BC #### [facility] [address] [place] [address] Dr. Graeme Webster Lymphocytes/100 WBC (Bld) 10.1 % Critically low 20.5-60.0 [facility] Comment on above: Performed By: #### C BC #### [facility] [address] [place] [address] Dr. Graeme Webster MANUAL DIFF REQ NO Normal [facility] Comment on above: Performed By: #### C BC #### [facility] [address] [place] [address] Dr. Graeme Webster MCH (RBC) [Entitic mass] 28.0 pg Normal 26.7-34.0 [facility] Comment on above: Performed By: #### C BC #### [facility] [address] [place] [address] Dr. Graeme Webster MCHC (RBC) [Mass/Vol] 31.8 g/dL Normal 29.9-35.2 [facility] Comment on above: Performed By: #### C BC #### [facility] [address] [place] [address] Dr. Graeme Webster MCV (RBC) [Entitic vol] 87.9 fL Normal 81.0-99.0 [facility] Comment on above: Performed By: #### C BC #### [facility] [address] [place] [address] Dr. Graeme Webster MONO # 0.4 103/ul Normal 0.3-0.8 [facility] Comment on above: Performed By: #### C BC #### [facility] [address] [place] [address] Dr. Graeme Webster Monocytes/100 WBC (Bld) 3.8 % Normal 1.7-12.0 [facility] Comment on above: Performed By: #### C BC #### [facility] [address] [place] [address] Dr. Graeme Webster NEUT # 8.8 103/ul Critically high 1.4-6.5 [facility] Comment on above: Performed By: #### C BC #### [facility] [address] [place] [address] Dr. Graeme Webster Neutrophils/100 WBC (Bld) 82.8 % Critically high 43.0-75.0 [facility] Comment on above: Performed By: #### C BC #### [facility] [address] [place] [address] Dr. Graeme Webster Platelet mean volume (Bld) [Entitic vol] 10.9 fL Normal 9.5-13.5 [facility] Comment on above: Performed By: #### C BC #### [facility] [address] [place] [address] Dr. Graeme Webster PLT 171 103/ul Normal 150-450 [facility] Comment on above: Performed By: #### C BC #### [facility] [address] [place] [address] Dr. Graeme Webster RBC 3.97 106/ul Critically low 4.20-5.40 [facility] Comment on above: Performed By: #### C BC #### [facility] [address] [place] [address] Dr. Graeme Webster WBC 10.6 103/ul Normal 4.0-11.0 [facility] Comment on above: Performed By: #### C BC #### [facility] [address] [place] [address] Dr. Graeme Webster POINT OF CARE GLUCOSEon Glucose [Mass/Vol] 177 mg/dL Critically high 74-106 [facility] Comment on above: Performed By: #### C BC #### [facility] [address] [place] [address] Dr. Graeme Webster PROF 14(COMP METB)on 022 Albumin [Mass/Vol] 2.5 g/dL Critically low 3.4-5.0 [facility] Comment on above: Performed By: #### C BC #### [facility] [address] [place] [address] Dr. Graeme Webster Albumin/Globulin [Mass ratio] 0.8 {ratio} Normal [facility] Comment on above: Performed By: #### C BC #### [facility] [address] [place] [address] Dr. Graeme Webster ALP [Catalytic activity/Vol] 53 U/L Normal 46-116 [facility] Comment on above: Performed By: #### C BC #### [facility] [address] [place] [address] Dr. Graeme Webster ALT [Catalytic activity/Vol] 94 U/L Critically high 14-59 [facility] Comment on above: Performed By: #### C BC #### [facility] [address] [place] [address] Dr. Graeme Webster Anion gap [Moles/Vol] 12.4 mmol/L Normal [facility] Comment on above: Performed By: #### C BC #### [facility] [address] [place] [address] Dr. Graeme Webster AST [Catalytic activity/Vol] 56 U/L Critically high 15-37 [facility] Comment on above: Performed By: #### C BC #### [facility] [address] [address] [address] Graeme Webster Bilirubin [Mass/Vol] 0.4 mg/dL Normal 0.2-1.0 [facility] Comment on above: Performed By: #### C BC #### [facility] [address] [address] [address] Graeme Webster Calcium [Mass/Vol] 7.7 mg/dL Critically low 8.5-10.1 [facility] Comment on above: Performed By: #### C BC #### [facility] [address] [place] [address] Dr. Graeme Webster Chloride [Moles/Vol] 109 mmol/L Critically high 98-107 [facility] Comment on above: Performed By: #### C BC #### [facility] [address] [place] [address] Dr. Graeme Webster CO2 [Moles/Vol] 23.2 mmol/L Normal 21.0-32.0 [facility] Comment on above: Performed By: #### C BC #### [facility] [address] [place] [address] Dr. Graeme Webster Creatinine [Mass/Vol] 0.81 mg/dL Normal 0.55-1.02 [facility] Comment on above: Performed By: #### C BC #### [facility] [address] [place] [address] Dr. Graeme Webster EGFR-AF MARSHALLESE >60 Normal >=60 [facility] Comment on above: Performed By: #### C BC #### [facility] [address] [place] [address] Dr. Graeme Webster EGFR-NON AF MARSHALLESE >60 Normal >=60 [facility] Comment on above: Performed By: #### C BC #### [facility] [address] [place] [address] Dr. Graeme Webster Globulin (S) [Mass/Vol] 3.2 g/dL Normal [facility] Comment on above: Performed By: #### C BC #### [facility] [address] [address] [address] Graeme Webster Glucose [Mass/Vol] 168 mg/dL Critically high 74-106 [facility] Comment on above: Performed By: #### C BC #### [facility] [address] [address] [address] Graeme Webster Potassium [Moles/Vol] 3.6 mmol/L Normal 3.5-5.1 [facility] Comment on above: Performed By: #### C BC #### [facility] [address] [address] [address] Graeme Webster Protein [Mass/Vol] 5.7 g/dL Critically low 6.4-8.2 [facility] Comment on above: Performed By: #### C BC #### [facility] [address] [address] [address] Graeme Webster Sodium [Moles/Vol] 141 mmol/L Normal 136-145 [facility] Comment on above: Performed By: #### C BC #### [facility] [address] [address] [address] Graeme Webster Urea nitrogen [Mass/Vol] 16.0 mg/dL Normal 7.0-18.0 [facility] Comment on above: Performed By: #### C BC #### [facility] [address] [address] [address] Graeme Webster Urea nitrogen/Creatinine [Mass ratio] 19.8 mg/mg Normal [facility] Comment on above: Performed By: #### C BC #### [facility] [address] [place] [address] Dr. Graeme Webster BNPon 04-30-2022 Natriuretic peptide B (Bld) [Mass/Vol] 242.0 pg/mL Normal <=1,800.0 [facility] Comment on above: Performed By: #### C BC #### [facility] [address] [place] [address] Dr. Graeme Webster CARDIAC JORGE LUIS 3-6on 2 CK [Catalytic activity/Vol] 81 U/L Normal 26-192 [facility] Comment on above: Performed By: #### C BC #### [facility] [address] [address] [address] Graeme Webster CK.MB [Mass/Vol] 1.02 ng/mL Normal <=3.60 [facility] Comment on above: Performed By: #### C BC #### [facility] [address] [place] [address] Dr. Graeme Webster HSTROP 5.9 pg/mL Normal 4.0-51.3 [facility] Comment on above: Result Comment: CUT- OFF POINTS HAVE BEEN ESTABLISHED BASED ON THE FOURTH UNIVERSAL DEFINITIONS OF MYOCARDIAL INFARCTION. THE UPPER REFERENCE LIMIT (URL) OF TROPONIN, DEFINED THE 99TH PERCENTILE OF cTnI DISTRIBUTION IN A REFERENCE POPULATION, HAS BEEN CONFIRMED THE DECISION THRESHOLD FOR [place] DIAGNOSIS. Performed By: #### C BC #### [facility] [address] [place] [address] Dr. Graeme Webster CBC AUTO DIFFon 04-30-2022 BASO # 0.1 103/ul Normal 0.0-0.1 [facility] Comment on above: Performed By: #### C BC #### [facility] [address] [place] [address] Dr. Graeme Webster Basophils/100 WBC (Bld) 0.4 % Normal 0.2-2.0 [facility] Comment on above: Performed By: #### C BC #### [facility] [address] [place] [address] Dr. Graeme Webster EO # 0.0 103/ul Normal 0.0-0.7 [facility] Comment on above: Performed By: #### C BC #### [facility] [address] [place] [address] Dr. Graeme Webster Eosinophils/100 WBC (Bld) 0.1 % Critically low 0.9-7.0 [facility] Comment on above: Performed By: #### C BC #### [facility] [address] [place] [address] Dr. Graeme Webster Erythrocyte distribution width (RBC) [Ratio] 14.7 % Normal 11.0-15.0 [facility] Comment on above: Performed By: #### C BC #### [facility] [address] [place] [address] Dr. Graeme Webster Hematocrit (Bld) [Volume fraction] 44.6 % Normal 36.0-48.0 [facility] Comment on above: Performed By: #### C BC #### [facility] [address] [place] [address] Dr. Graeme Webster Hemoglobin (Bld) [Mass/Vol] 14.3 g/dL Normal 12.0-16.0 [facility] Comment on above: Performed By: #### C BC #### [facility] [address] [place] [address] Dr. Graeme Webster IG # 0.67 10e3/ul Critically high 0.00-0.03 [facility] Comment on above: Performed By: #### C BC #### [facility] [address] [place] [address] Dr. Graeme Webster IG % 2.8 % Critically high 0.0-0.5 [facility] Comment on above: Performed By: #### C BC #### [facility] [address] [place] [address] Dr. Graeme Webster LYMPH # 0.5 103/ul Critically low 1.2-3.8 [facility] Comment on above: Performed By: #### C BC #### [facility] [address] [place] [address] Dr. Graeme Webster Lymphocytes/100 WBC (Bld) 1.9 % Critically low 20.5-60.0 [facility] Comment on above: Performed By: #### C BC #### [facility] [address] [place] [address] Dr. Graeme Webster MANUAL DIFF REQ NO Normal [facility] Comment on above: Performed By: #### C BC #### [facility] [address] [place] [address] Dr. Graeme Webster MCH (RBC) [Entitic mass] 28.1 pg Normal 26.7-34.0 [facility] Comment on above: Performed By: #### C BC #### [facility] [address] [address] [address] Graeme Webster MCHC (RBC) [Mass/Vol] 32.1 g/dL Normal 29.9-35.2 [facility] Comment on above: Performed By: #### C BC #### [facility] [address] [place] [address] Dr. Graeme Webster MCV (RBC) [Entitic vol] 87.6 fL Normal 81.0-99.0 [facility] Comment on above: Performed By: #### C BC #### [facility] [address] [place] [address] Dr. Graeme Webster MONO # 0.7 103/ul Normal 0.3-0.8 [facility] Comment on above: Performed By: #### C BC #### [facility] [address] [place] [address] Dr. Graeme Webster Monocytes/100 WBC (Bld) 3.0 % Normal 1.7-12.0 [facility] Comment on above: Performed By: #### C BC #### [facility] [address] [place] [address] Dr. Graeme Webster NEUT # 21.7 103/ul Critically high 1.4-6.5 [facility] Comment on above: Performed By: #### C BC #### [facility] [address] [place] [address] Dr. Graeme Webster Neutrophils/100 WBC (Bld) 91.8 % Critically high 43.0-75.0 [facility] Comment on above: Performed By: #### C BC #### [facility] [address] [place] [address] Dr. Gareme Webster Platelet mean volume (Bld) [Entitic vol] 10.0 fL Normal 9.5-13.5 [facility] Comment on above: Performed By: #### C BC #### [facility] [address] [place] [address] Dr. Graeme Webster PLT 237 103/ul Normal 150-450 The [facility] Comment on above: Performed By: #### C BC #### [facility] [address] [place], [place] [address] Dr. Graeme Webster RBC 5.09 106/ul Normal 4.20-5.40 The [facility] Comment on above: Performed By: #### C BC #### [facility] [address] [place], [place] [address] Dr. Graeme Webster WBC 23.7 103/ul Critically high 4.0-11.0 [facility] Comment on above: Performed By: #### C BC #### [facility] [address] [place], [place] [address] Dr. Graeme Webster CTA CHEST WO W CONon 022 CTA CHEST WO W CON EXAMINATION: CTA PATRICK ST WO W CON HISTORY: SHORTNESS OF BREATH COMPARISON: No relevant comparison available. TECHNIQUE: Axial, Coronal, and Sagittal images were created without and with IV contrast. Dose reduction techniques were achieved by using automated exposure control and/or adjustment of mA and/or kV according to patient size and/or use of iterative reconstruction technique. FINDINGS: LUNGS: Calcified tracheobronchial tree scattered subcentimeter solid and semisolid pulmonary nodules the largest nodule is identified in the right lower lobe measuring 7 mm, axial image 52. The majority of the nodules are not calcified. Bibasilar dependent opacities, atelectasis is favored. Calcified tracheobronchial tree without bronchiectasis PLEURA: No mass, effusion, or pneumothorax. VASCULATURE: Suboptimal opacification of the central pulmonary arterial tree. No definite filling defect to suggest a pulmonary embolus KINSEY: Small calcified right hilar lymph nodes MEDIASTINUM: No mass or adenopathy. CARDIAC: No enlargement or pericardial effusion. Heavy coronary atherosclerosis AORTA: No aortic aneurysm or dissection. Severe atherosclerosis CHEST WALL: No mass or axillary adenopathy. 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 OTHER: Negative. IMPRESSION: No central pulmonary thromboembolic disease Scattered bilateral subcentimeter pulmonary nodules. Six-month follow-up recommended to document stability Electronically authenticated by: DANTE LAMAS Date: 2022-04-30 13:55 Normal The [facility] CULTURE BLOODon 04-30-2022 Microscopic examination of blood, culture Culture Observations: NO GROWTH AT 5 DAYS. Normal [facility] Comment on above: Performed By: #### B LDCX2 #### [facility] [address] [place] [address] [address] Graeme Webster Microscopic examination of blood, culture Culture Observations: NO GROWTH AT 5 DAYS. Normal [facility] Comment on above: Performed By: #### L ACT #### [facility] [id number] Graeme Webster Covid-19 PCR ([facility])on SARS-CoV-2 (COVID-19) RNA ELVIA+probe Ql (Unsp spec) Not detected Normal NOT DETECTED The [facility] Comment on above: Result Comment: When diagnostic testing is negative, the possibility of a false negative should be considered in the context of a patient's recent exposures and the presence of clinical signs and symptoms consistent with SARS-CoV-2. This test is not yet approved or cleared by the [place] FDA. When there are no FDA-approved or cleared tests available, and other criteria are met, FDA can make tests available under an emergency access mechanism called an Emergency Use Authorization (EUA). The EUA for this test is supported by the Electromechanical Assembly Technician of Health and Human Service's declaration that circumstances exist to justify the emergency use of in vitro diagnostics for the detection and/or diagnosis of the virus that causes COVID-19. This EUA will remain in effect for the duration of the COVID-19 declaration justifying emergency of IVDs, unless it is terminated or revoked by the FDA (after which the test may no longer be used). Performed By: #### L ACT #### [facility] [address] [place] [address] [id number] [address] Graeme Webster D-DIMERon 04-30-2022 D-DIMER 2.04 mg/L FEU Critically high <=0.59 [facility] Comment on above: Performed By: #### L ACT #### [facility] [address] [place] [address] [address] [address] Graeme Webster D-DIMER COMMENTS SEE BELOW Normal [facility] Comment on above: Result Comment: Incr eases in D-Dimer concentration observed with thromboembolic events can be variable due to localization, size, and age of the thrombus. Therefore, a thromboembolic event cannot be diagnosed with certainty on the basis of the reference range. D-Dimers may also be elevated for a variety of disorders including: advanced age, , coronary disease, cancer, liver disease, infection, inflammation, hematoma, DIC, trauma, post-surgery, diabetes, thrombolytic or anticoagulant therapy, stress, and generalized hospitalization. Performed By: #### L ACT #### [facility] [address] [place] [address] Dr. Graeme Webster ER URINE PROFILEon 2 Bilirubin Ql (U) Negative Normal NEGATIVE [facility] Comment on above: Performed By: #### L ACT #### [facility] [address] [place] [address] Dr. Graeme Webster Clarity (U) CLEAR Normal CLEAR [facility] Comment on above: Performed By: #### L ACT #### [facility] [address] [place] [address] Dr. Graeme Webster Color (U) YELLOW Normal YELLOW [facility] Comment on above: Performed By: #### L ACT #### [facility] [address] [place] [address] Dr. Graeme Webster ERUAHD A micrscopic examina tion will be performed if indicated. Normal The [facility] Comment on above: Performed By: #### L ACT #### [facility] [address] [place] [address] Dr. Graeme Webster Glucose Ql (U) 100 mg/dl Abnormal NEGATIVE [facility] Comment on above: Performed By: #### L ACT #### [facility] [address] [place] [address] Dr. Graeme Webster Hemoglobin Ql (U) Negative Normal NEGATIVE [facility] Comment on above: Performed By: #### L ACT #### [facility] [address] [place] [address] Dr. Graeme Webster Ketones Ql (U) 15 mg/dl Abnormal NEGATIVE [facility] Comment on above: Performed By: #### L ACT #### [facility] [address] [place] [address] Dr. Graeme Webster LEUKOCYTES Negative Normal NEGATIVE The [facility] Comment on above: Performed By: #### L ACT #### [facility] [address] [place] [address] Dr. Graeme Webster Nitrite Ql (U) Negative Normal NEGATIVE [facility] Comment on above: Performed By: #### L ACT #### [facility] [address] [place] [address] Dr. Graeme Webster pH (U) 6.5 [pH] Normal 5-9 The [facility] Comment on above: Performed By: #### L ACT #### [facility] [address] [place] [address] Dr. Graeme Webster SPEC GRAVITY 1.010 Normal 1.005-<=1. 025 [facility] Comment on above: Performed By: #### L ACT #### [facility] [address] [place] [address] Dr. Graeme Webster UA PROTEIN Negative Normal NEGATIVE/ TRACE The [facility] Comment on above: Performed By: #### L ACT #### [facility] [address] [place] [address] Dr. Graeme Webster UR MICRO IND NOT INDICATED Normal [facility] Comment on above: Performed By: #### L ACT #### [facility] [address] [place] [address] Dr. Graeme Webster Urobilinogen Qn (U) 0.2 {Anabella'U}/dL Normal 0.2 - 1. 0 [facility] Comment on above: Performed By: #### L ACT #### [facility] [address] [place] [address] Dr. Graeme Webster LACTATE/LACTIC ACIDon 2021 Lactate [Moles/Vol] 3.9 mmol/L Critically high 0.4-1.9 [facility] Comment on above: Result Comment: repe ated Performed By: #### C BC #### [facility] [address] [place] [address] Dr. Graeme Webster Lactate [Moles/Vol] 2.8 mmol/L Critically high 0.4-1.9 [facility] Comment on above: Performed By: #### L ACT #### [facility] [address] [address] [address] Graeme Webster Lactate [Moles/Vol] 4.9 mmol/L Critically high 0.4-1.9 [facility] Comment on above: Performed By: #### L ACT #### [facility] [address] [place] [address] [address] Graeme Webster Lactate [Moles/Vol] 3.5 mmol/L Critically high 0.4-1.9 [facility] Comment on above: Performed By: #### L ACT #### [facility] [address] [place] [address] [address] Graeme Webster POINT OF CARE GLUCOSEon Glucose [Mass/Vol] 214 mg/dL Critically high [facility]106 [facility] Comment on above: Performed By: #### P OCGLUC #### [facility] [address] [address] [address] Graeme Webster Glucose [Mass/Vol] 112 mg/dL Critically high -106 [facility] Comment on above: Performed By: #### C BC #### [facility] [address] [place] [address] [address] Graeme Webster Glucose [Mass/Vol] 311 mg/dL Critically high [facility] Comment on above: Performed By: #### L ACT #### [facility] [address] [place] [address] [address] Graeme Webster Glucose [Mass/Vol] 199 mg/dL Critically high -106 [facility] Comment on above: Performed By: #### C BC #### [facility] [address] [place] [address] [address] Graeme Webster PROF 14(COMP METB)on 022 Albumin [Mass/Vol] 3.5 g/dL Normal 3.4-5.0 [facility] Comment on above: Performed By: #### C BC #### [facility] [address] [place] [address] [address] Graeme Webster Albumin/Globulin [Mass ratio] 1.0 {ratio} Normal [facility] Comment on above: Performed By: #### C BC #### [facility] [address] [place] [address] [address] Graeme Webster ALP [Catalytic activity/Vol] 62 U/L Normal 46-116 The [facility] Comment on above: Performed By: #### C BC #### [facility] [address] [place] [address] Dr. Graeme Webster ALT [Catalytic activity/Vol] 15 U/L Normal 14-59 [facility] Comment on above: Performed By: #### C BC #### [facility] [address] [place] [address] Dr. Graeme Webster Anion gap [Moles/Vol] 14.7 mmol/L Normal Th e [facility] Comment on above: Performed By: #### C BC #### [facility] [address] [place] [address] Dr. Graeme Webster AST [Catalytic activity/Vol] 11 U/L Critically low 15-37 [facility] Comment on above: Performed By: #### C BC #### [facility] [address] [place] [address] Dr. Graeme Webster Bilirubin [Mass/Vol] 0.9 mg/dL Normal 0.2-1.0 [facility] Comment on above: Performed By: #### C BC #### [facility] [address] [place] [address] Dr. Graeme Webster Calcium [Mass/Vol] 8.5 mg/dL Normal 8.5-10.1 The [facility] Comment on above: Performed By: #### C BC #### [facility] [address] [place] [address] Dr. Graeme Webster Chloride [Moles/Vol] 101 mmol/L Normal 98-107 The [facility] Comment on above: Performed By: #### C BC #### [facility] [address] [place] [address] Dr. Graeme Webster CO2 [Moles/Vol] 24.9 mmol/L Normal 21.0-32.0 The [facility] Comment on above: Performed By: #### C BC #### [facility] [address] [place] [address] [address] Graeme Webster Creatinine [Mass/Vol] 1.02 mg/dL Normal 0.55-1.02 [facility] Comment on above: Performed By: #### C BC #### [facility] [address] [place] [address] [address] Graeme Webster EGFR-AF MARSHALLESE >60 Normal >=60 [facility] Comment on above: Performed By: #### C BC #### [facility] [address] [place] [address] Dr. Graeme Webster EGFR-NON AF MARSHALLESE 52 mL/min/1.73m2 Critically low >=60 [facility] Comment on above: Performed By: #### C BC #### [facility] [address] [place] [address] Dr. Graeme Webster Globulin (S) [Mass/Vol] 3.5 g/dL Normal [facility] Comment on above: Performed By: #### C BC #### [facility] [address] [place] [address] Dr. Graeme Webster Glucose [Mass/Vol] 274 mg/dL Critically high 74-106 [facility] Comment on above: Performed By: #### C BC #### [facility] [address] [place] [address] Dr. Graeme Webster Potassium [Moles/Vol] 3.6 mmol/L Normal 3.5-5.1 The [facility] Comment on above: Performed By: #### C BC #### [facility] [address] [place] [address] Dr. Graeme Webster Protein [Mass/Vol] 7.0 g/dL Normal 6.4-8.2 The [facility] Comment on above: Performed By: #### C BC #### [facility] [address] [place] [address] Dr. Graeme Webster Sodium [Moles/Vol] 137 mmol/L Normal 136-145 The [facility] Comment on above: Performed By: #### C BC #### [facility] [address] [place] [address] Dr. Graeme Webster Urea nitrogen [Mass/Vol] 14.0 mg/dL Normal 7.0-18.0 [facility] Comment on above: Performed By: #### C BC #### [facility] [address] [place] [address] [address] Graeme Webster Urea nitrogen/Creatinine [Mass ratio] 13.7 mg/mg Normal The [facility] Comment on above: Performed By: #### C BC #### [facility] [address] [place] [address] [address] Graeme Webster TROPONIN, HIGH SENSITIVITYon 04-30-2022 HSTROP 7.4 pg/mL Normal 4.0-51.3 [facility] Comment on above: Result Comment: CUT- OFF POINTS HAVE BEEN ESTABLISHED BASED ON THE FOURTH UNIVERSAL DEFINITIONS OF MYOCARDIAL INFARCTION. THE UPPER REFERENCE LIMIT (URL) OF TROPONIN, DEFINED THE 99TH PERCENTILE OF cTnI DISTRIBUTION IN A REFERENCE POPULATION, HAS BEEN CONFIRMED THE DECISION THRESHOLD FOR [place] DIAGNOSIS. Performed By: #### C BC #### [facility] [address] [place] [address] Dr. Graeme Webster US KIDNEYSon 04-30-2022 US KIDNEYS Ultrasound kidneys, bilateral HISTORY: SHORTNESS OF BREATH COMPARISON: None. TECHNIQUE: Transabdominal ultrasound imaging of both kidneys was performed. FINDINGS: Both kidneys demonstrate normal echotexture and echogenicity. The right kidney measures 10.3 x 5.1 x 4.8 cm. There are several echogenic structures with twinkle artifact compatible with small nonobstructing stones, the largest is 5 mm. There is no hydronephrosis of right kidney. The left kidney measures 9.9 x 3.9 x 4.8 cm. There is an anechoic avascular structure at the upper pole compatible with a simple cyst and is 3.1 x 2.7 x 2.8 cm. No hydronephrosis of left kidney. The bladder is distended with prevoid volume of 482 cc. No focal bladder abnormality. IMPRESSION: 1. Normal size kidneys for age without hydronephrosis. 2. 3.1 cm left upper pole simple cyst. 3. Few tiny nonobstructing right renal stones measuring up to 5 mm. 4. Distended bladder without focal abnormality. Electronically authenticated by: TREVOR RODRIGUEZ Date: 2022-04-30 16:47 Normal The [facility] XR CHEST 1 Von 04-30-2022 XR CHEST 1 V EXAM: XR CHEST 1 V HISTORY: COUGH COMPARISON: None. TECHNIQUE: One view of the chest was obtained. FINDINGS: The cardiac silhouette is normal in size. Aortic atherosclerotic disease is seen. The lungs are clear. There is no significant pneumothorax or pleural effusion. No acute osseous abnormality is seen. [place] screws are seen within the right humeral head. IMPRESSION: 1. No acute cardiopulmonary abnormality. Electronically authenticated by: Abad RUTLEDGE Date: 2022-04-30 04:04 Normal The [facility] Q - CULTURE,URINE,ROUTINEon 01-14-2022 CULTURE, URINE, ROUTINE SEE NOTE Abnormal N robbie [place] [employer]ographer Comment on above: Order Comment: [facility] performed at: [facility], [employer] [facility], [address] [place] [address], [address] [place] [address], [id number], [employer]ing [employer] Rules: Ji Fung MD [facility] Collection Date/Time: [id number] [facility] Results Received Date/Time: [id number] [facility] Reported Date/Time: Result Comment: CULT URE, URINE, ROUTINE Micro Number: [id number] Test Status: Final Specimen Source: Urine Specimen Quality: Adequate Result: Greater than 100,000 CFU/mL of Group B Streptococcus isolated Beta-hemolytic streptococci are predictably susceptible to Penicillin and other beta-lactams. Susceptibility testing not routinely performed. Please contact the laboratory within 3 days if susceptibility testing is desired. Comment: Erythromycin and clindamycin are not recommended for treatment of urinary tract infections, but clindamycin may be useful for treatment in penicillin allergic patients for rectovaginal colonization or for intrapartum prophylaxis if indicated. COMMENT: Additional non-predominating organism(s) isolated. These organisms, commonly found on external and internal genitalia, are considered colonizers. No further testing performed. Performed By: #### 6 [id number] #### [facility] [address] [place] [address] LACTOFERRIN FECAL QUANTon Lactoferrin, Fecal, Quant. <1.00 Normal 0.00-7.24 The [facility] Comment on above: Result Comment: Re sults verified by repeat testing . Baseline (normal) 0.00 - 7.24 Elevated >7.24 . An elevated result is indicative of the presence of fecal lactoferrin, a marker of intestinal inflammation. A normal result does not exclude the presence of intestinal inflammation. The test can be used as an in vitro diagnostic aid to distinguish patients with active inflammatory bowel disease (IBD) from those with non-inflammatory irritable bowel syndrome (IBS). Performed By: #### C BC #### [facility] [address] [address] [address] Graeme Webster PANCREATIC ELASTASE FECALon 10-23-2021 Pancreatic Elastase, Fecal 172 ug Elast./g Critically low >200 [facility] Comment on above: Result Comment: Milagros re Pancreatic Insufficiency: <100 Moderate Pancreatic Insufficiency: 100 - 200 Normal: >200 Performed By: #### C BC #### [facility] [address] [place] [address] Dr. Graeme Webster PH, STOOLon 10-23-2021 pH, Stool 6.5 Critically low 7.0-7.5 [facility] Comment on above: Performed By: #### C BC #### [facility] [address] [place] [address] Dr. Graeme Webster CLOSTRIDIUM DIFFICILE PCRon 08-29-2021 C difficile Toxin Gene ELVIA Negative Normal Negative [facility] Comment on above: Performed By: #### C BC #### [facility] [address] [place] [address] Dr. Graeme Webster CULTURE STOOLon 08-26-2021 CULTURE STOOL Culture Observations : NO GROWTH SALMONELLA, SHIGELLA, YERSINIA, CAMPY, E.COLI 0157, OR STAPH AT 72 HRS Normal [facility] Comment on above: Performed By: #### S TOOLCX #### [facility] [address] [place] [address] Dr. Graeme Webster Patient Correspondenceon Patient Correspondence [phone] [id number] Normal [facility] Ambulatory Clinical Summaryo n 05-29-2021 Ambulatory Clinical Summary {[id number] Normal [facility] General Surgery Office/Clini c Noteon 05-29-2021 General Surgery Office/Clinic Note Chief Complaint post operative follow up HPI Staff 9 day post operative follow up post colonoscopy with rectal polypectomy. Has not experienced further rectal bleeding. History of Present Illness 9 days s/p colonoscopy done for loose stools and hematochezia; had inflammatory removed from rectum; had increased bleeding afterwards; none for past 3 days; stools improving; no abdominal pain; no fevers; hb rechecked yesterday, stable. Physical Exam Vitals & Measurements T: 36.4 ?C (Temporal Artery) Assessment/Plan 1. 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 2. Diverticulosis of sigmoid colon (K57.30: Diverticulosis of large intestine without perforation or abscess without bleeding) high fiber diet and daily fiber supplement. 3. 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 Medications gabapentin 300 mg Cap, 300 mg= 1 cap(s), Oral, BID glyBURIDE 5 mg Tab, 10 mg= 2 tab(s), Oral, BID meloxicam 7.5 mg oral tablet, 7.5 mg= 1 tab(s), Oral, q120hr metformin 500 mg oral tablet, 500 mg= 1 tab(s), Oral, BID ropinirole 0.25 mg Tab, 0.5 mg= 2 tab(s), Oral, Daily Allergies Cipro (Hives) Synvisc (Edema) simvastatin (Nausea and vomiting) temazepam (Rash) Social History Alcohol - Denies Alcohol Use, 04/16/2021 Substance Abuse - Denies Substance Abuse, 04/16/2021 Tobacco Never (less than 100 in lifetime) Tobacco Use:., 05/29/2021 Family History Heart disease: Father. Stroke: Mother. Immunizations Vaccine Date Status SARS-CoV-2 (COVID-19) mRNA BNT-162b2 vax 10/11/2020 Recorded SARS-CoV-2 (COVID-19) mRNA-1273 vaccine 09/20/[address] [facility] Comment on above: Result Comment: Elec tronically Signed By: NARENDRA CAMPO, Jessica Figueroa\Date and Time Signed: 05/29/21 10:50 EDT CBC AUTO DIFFon 05-28-2021 BASO # 0.1 103/ul Normal 0.0-0.1 [facility] Comment on above: Performed By: #### C BC #### [facility] [address] [place] [address] Dr. Graeme Webster Basophils/100 WBC (Bld) 0.8 % Normal 0.2-2.0 [facility] Comment on above: Performed By: #### C BC #### [facility] [address] [place] [address] Dr. Graeme Webster EO # 0.1 103/ul Normal 0.0-0.7 [facility] Comment on above: Performed By: #### C BC #### [facility] [address] [place] [address] Dr. Graeme Webster Eosinophils/100 WBC (Bld) 0.8 % Critically low 0.9-7.0 [facility] Comment on above: Performed By: #### C BC #### [facility] [address] [place] [address] Dr. Graeme Webster Erythrocyte distribution width (RBC) [Ratio] 14.6 % Normal 11.0-15.0 [facility] Comment on above: Performed By: #### C BC #### [facility] [address] [place] [address] Dr. Graeme Webster Hematocrit (Bld) [Volume fraction] 39.0 % Normal 36.0-48.0 [facility] Comment on above: Performed By: #### C BC #### [facility] [address] [place] [address] Dr. Graeme Webster Hemoglobin (Bld) [Mass/Vol] 12.6 g/dL Normal 12.0-16.0 [facility] Comment on above: Performed By: #### C BC #### [facility] [address] [place] [address] Dr. Graeme Webster IG # 0.08 10e3/ul Critically high 0.00-0.03 [facility] Comment on above: Performed By: #### C BC #### [facility] [address] [place] [address] Dr. Graeme Webster IG % 0.7 % Critically high 0.0-0.5 [facility] Comment on above: Performed By: #### C BC #### [facility] [address] [place] [address] Dr. Graeme Webster LYMPH # 2.8 103/ul Normal 1.2-3.8 [facility] Comment on above: Performed By: #### C BC #### [facility] [address] [place] [address] Dr. Graeme Webster Lymphocytes/100 WBC (Bld) 23.7 % Normal 20.5-60.0 [facility] Comment on above: Performed By: #### C BC #### [facility] [address] [place] [address] Dr. Graeme Webster MANUAL DIFF REQ NO Normal The [facility] Comment on above: Performed By: #### C BC #### [facility] [address] [place] [address] Dr. Graeme Webster MCH (RBC) [Entitic mass] 28.9 pg Normal 26.7-34.0 [facility] Comment on above: Performed By: #### C BC #### [facility] [address] [place] [address] Dr. Graeme Webster MCHC (RBC) [Mass/Vol] 32.3 g/dL Normal 29.9-35.2 [facility] Comment on above: Performed By: #### C BC #### [facility] [address] [address] [address] Graeme Webster MCV (RBC) [Entitic vol] 89.4 fL Normal 81.0-99.0 [facility] Comment on above: Performed By: #### C BC #### [facility] [address] [place] [address] Dr. Graeme Webster MONO # 0.8 103/ul Normal 0.3-0.8 [facility] Comment on above: Performed By: #### C BC #### [facility] [address] [place] [address] Dr. Graeme Webster Monocytes/100 WBC (Bld) 6.8 % Normal 1.7-12.0 [facility] Comment on above: Performed By: #### C BC #### [facility] [address] [place] [address] Dr. Graeme Webster NEUT # 8.0 103/ul Critically high 1.4-6.5 [facility] Comment on above: Performed By: #### C BC #### [facility] [address] [place] [address] Dr. Graeme Webster Neutrophils/100 WBC (Bld) 67.2 % Normal 43.0-75.0 [facility] Comment on above: Performed By: #### C BC #### [facility] [address] [place] [address] Dr. Graeme Webster Platelet mean volume (Bld) [Entitic vol] 10.8 fL Normal 9.5-13.5 [facility] Comment on above: Performed By: #### C BC #### [facility] [address] [place] [address] Dr. Graeme Webster PLT 293 103/ul Normal 150-450 [facility] Comment on above: Performed By: #### C BC #### [facility] [address] [place] [address] Dr. Graeme Webster RBC 4.36 106/ul Normal 4.20-5.40 [facility] Comment on above: Performed By: #### C BC #### [facility] [address] [place] [address] Dr. Graeme Webster WBC 11.8 103/ul Critically high 4.0-11.0 [facility] Comment on above: Performed By: #### C BC #### [facility] [address] [place] [address] Dr. Graeme Webster CBC AUTO DIFFon 05-25-2021 BASO # 0.1 103/ul Normal 0.0-0.1 [facility] Comment on above: Performed By: #### C BC #### [facility] [address] [place] [address] Dr. Graeme Webster Basophils/100 WBC (Bld) 0.8 % Normal 0.2-2.0 [facility] Comment on above: Performed By: #### C BC #### [facility] [address] [place] [address] Dr. Graeme Webster EO # 0.1 103/ul Normal 0.0-0.7 [facility] Comment on above: Performed By: #### C BC #### [facility] [address] [place] [address] Dr. Graeme Webster Eosinophils/100 WBC (Bld) 1.1 % Normal 0.9-7.0 [facility] Comment on above: Performed By: #### C BC #### [facility] [address] [place] [address] Dr. Graeme Webster Erythrocyte distribution width (RBC) [Ratio] 14.6 % Normal 11.0-15.0 [facility] Comment on above: Performed By: #### C BC #### [facility] [address] [place] [address] Dr. Graeme Webster Hematocrit (Bld) [Volume fraction] 37.9 % Normal 36.0-48.0 [facility] Comment on above: Performed By: #### C BC #### [facility] [address] [place] [address] Dr. Graeme Webster Hemoglobin (Bld) [Mass/Vol] 11.9 g/dL Critically low 12.0-16.0 [facility] Comment on above: Result Comment: draw n as outpatient Performed By: #### C BC #### [facility] [address] [place] [address] Dr. Graeme Webster IG # 0.04 10e3/ul Critically high 0.00-0.03 [facility] Comment on above: Performed By: #### C BC #### [facility] [address] [place] [address] Dr. Graeme Webster IG % 0.4 % Normal 0.0-0.5 [facility] Comment on above: Performed By: #### C BC #### [facility] [address] [place] [address] Dr. Graeme Webster LYMPH # 2.7 103/ul Normal 1.2-3.8 [facility] Comment on above: Performed By: #### C BC #### [facility] [address] [place] [address] Dr. Graeme Webster Lymphocytes/100 WBC (Bld) 27.1 % Normal 20.5-60.0 [facility] Comment on above: Performed By: #### C BC #### [facility] [address] [place] [address] Dr. Graeme Webster MANUAL DIFF REQ NO Normal [facility] Comment on above: Performed By: #### C BC #### [facility] [address] [place] [address] Dr. Graeme Webster MCH (RBC) [Entitic mass] 28.3 pg Normal 26.7-34.0 [facility] Comment on above: Performed By: #### C BC #### [facility] [address] [place] [address] Dr. Graeme Webster MCHC (RBC) [Mass/Vol] 31.4 g/dL Normal 29.9-35.2 [facility] Comment on above: Performed By: #### C BC #### [facility] [address] [place] [address] Dr. Graeme Webster MCV (RBC) [Entitic vol] 90.0 fL Normal 81.0-99.0 [facility] Comment on above: Performed By: #### C BC #### [facility] [address] [place] [address] Dr. Graeme Webster MONO # 0.8 103/ul Normal 0.3-0.8 [facility] Comment on above: Performed By: #### C BC #### [facility] [address] [place] [address] Dr. Graeme Webster Monocytes/100 WBC (Bld) 7.9 % Normal 1.7-12.0 [facility] Comment on above: Performed By: #### C BC #### [facility] [address] [place] [address] Dr. Graeme Webster NEUT # 6.3 103/ul Normal 1.4-6.5 [facility] Comment on above: Performed By: #### C BC #### [facility] [address] [place] [address] Dr. Graeme Webster Neutrophils/100 WBC (Bld) 62.7 % Normal 43.0-75.0 [facility] Comment on above: Performed By: #### C BC #### [facility] [address] [place] [address] Dr. Graeme Webster Platelet mean volume (Bld) [Entitic vol] 11.0 fL Normal 9.5-13.5 [facility] Comment on above: Performed By: #### C BC #### [facility] [address] [place] [address] Dr. Graeme Webster PLT 239 103/ul Normal 150-450 [facility] Comment on above: Performed By: #### C BC #### [facility] [address] [place] [address] Dr. Graeme Webster RBC 4.21 106/ul Normal 4.20-5.40 [facility] Comment on above: Performed By: #### C BC #### [facility] [address] [place] [address] Dr. Graeme Webster WBC 10.0 103/ul Normal 4.0-11.0 [facility] Comment on above: Performed By: #### C BC #### [facility] [address] [place] [address] Dr. Graeme Webster Lab Reportson 05-25-2021 Lab Reports [id number]:12 7 Normal [facility] CBC AUTO DIFFon 05-23-2021 BASO # 0.1 103/ul Normal 0.0-0.1 [facility] Comment on above: Performed By: #### C BC #### [facility] [address] [address] [address] Graeme Webster Basophils/100 WBC (Bld) 0.6 % Normal 0.2-2.0 [facility] Comment on above: Performed By: #### C BC #### [facility] [address] [address] [address] Graeme Webster EO # 0.1 103/ul Normal 0.0-0.7 [facility] Comment on above: Performed By: #### C BC #### [facility] [address] [place] [address] Dr. Graeme Webster Eosinophils/100 WBC (Bld) 0.6 % Critically low 0.9-7.0 [facility] Comment on above: Performed By: #### C BC #### [facility] [address] [address] [address] Graeme Webster Erythrocyte distribution width (RBC) [Ratio] 14.4 % Normal 11.0-15.0 [facility] Comment on above: Performed By: #### C BC #### [facility] [address] [place] [address] Dr. Graeme Webster Hematocrit (Bld) [Volume fraction] 43.8 % Normal 36.0-48.0 [facility] Comment on above: Performed By: #### C BC #### [facility] [address] [address] [address] Graeme Webster Hemoglobin (Bld) [Mass/Vol] 13.9 g/dL Normal 12.0-16.0 [facility] Comment on above: Performed By: #### C BC #### [facility] [address] [place] [address] Dr. Graeme Webster IG # 0.04 10e3/ul Critically high 0.00-0.03 [facility] Comment on above: Performed By: #### C BC #### [facility] [address] [place] [address] Dr. Graeme Webster IG % 0.4 % Normal 0.0-0.5 [facility] Comment on above: Performed By: #### C BC #### [facility] [address] [place] [address] Dr. Graeme Webster LYMPH # 2.3 103/ul Normal 1.2-3.8 [facility] Comment on above: Performed By: #### C BC #### [facility] [address] [place] [address] Dr. Graeme Webster Lymphocytes/100 WBC (Bld) 22.8 % Normal 20.5-60.0 [facility] Comment on above: Performed By: #### C BC #### [facility] [address] [place] [address] Dr. Graeme Webster MANUAL DIFF REQ NO Normal [facility] Comment on above: Performed By: #### C BC #### [facility] [address] [place] [address] Dr. Graeme Webster MCH (RBC) [Entitic mass] 28.2 pg Normal 26.7-34.0 [facility] Comment on above: Performed By: #### C BC #### [facility] [address] [place] [address] Dr. Graeme Webster MCHC (RBC) [Mass/Vol] 31.7 g/dL Normal 29.9-35.2 [facility] Comment on above: Performed By: #### C BC #### [facility] [address] [place] [address] Dr. Graeme Webster MCV (RBC) [Entitic vol] 88.8 fL Normal 81.0-99.0 [facility] Comment on above: Performed By: #### C BC #### [facility] [address] [place] [address] Dr. Graeme Webster MONO # 0.7 103/ul Normal 0.3-0.8 [facility] Comment on above: Performed By: #### C BC #### [facility] [address] [place] [address] Dr. Graeme Webster Monocytes/100 WBC (Bld) 6.4 % Normal 1.7-12.0 [facility] Comment on above: Performed By: #### C BC #### [facility] [address] [place] [address] Dr. Graeme Webster NEUT # 7.0 103/ul Critically high 1.4-6.5 [facility] Comment on above: Performed By: #### C BC #### [facility] [address] [place] [address] Dr. Graeme Webster Neutrophils/100 WBC (Bld) 69.2 % Normal 43.0-75.0 [facility] Comment on above: Performed By: #### C BC #### [facility] [address] [place] [address] Dr. Graeme Webster Platelet mean volume (Bld) [Entitic vol] 10.7 fL Normal 9.5-13.5 [facility] Comment on above: Performed By: #### C BC #### [facility] [address] [place] [address] Dr. Graeme Webster PLT 232 103/ul Normal 150-450 [facility] Comment on above: Performed By: #### C BC #### [facility] [address] [place] [address] Dr. Graeme Webster RBC 4.93 106/ul Normal 4.20-5.40 [facility] Comment on above: Performed By: #### C BC #### [facility] [address] [place] [address] Dr. Graeme Webster WBC 10.1 103/ul Normal 4.0-11.0 [facility] Comment on above: Performed By: #### C BC #### [facility] [address] [place] [address] Dr. Graeme DOMINGO BLD IMMUNO SCREENon 04-30 OCCULT BLOOD Positive Abnormal NEGATIVE The [facility] Comment on above: Performed By: #### C BC #### [facility] [address] [place] [address] Dr. Graeme Webster PROF CHEM 8 (BAS METB)on Anion gap [Moles/Vol] 12.9 mmol/L Normal [facility] Comment on above: Performed By: #### C BC #### [facility] [address] [place] [address] Dr. Graeme Webster Calcium [Mass/Vol] 8.8 mg/dL Normal 8.4-10.2 [facility] Comment on above: Performed By: #### C BC #### [facility] [address] [place] [address] Dr. Graeme Webster Chloride [Moles/Vol] 104 mmol/L Normal 98-107 [facility] Comment on above: Performed By: #### C BC #### [facility] [address] [place] [address] Dr. Graeme Wesbter CO2 [Moles/Vol] 27.6 mmol/L Normal 22.0-30.0 [facility] Comment on above: Performed By: #### C BC #### [facility] [address] [place] [address] Dr. Graeme Webster Creatinine [Mass/Vol] 0.70 mg/dL Normal 0.52-1.04 [facility] Comment on above: Performed By: #### C BC #### [facility] [address] [place] [address] Dr. rGaeme Webster EGFR-AF MARSHALLESE >60 Normal >=60 [facility] Comment on above: Performed By: #### C BC #### [facility] [address] [place] [address] Dr. Gramee Webster EGFR-NON AF MARSHALLESE >60 Normal >=60 [facility] Comment on above: Performed By: #### C BC #### [facility] [address] [place] [address] Dr. Graeme Webster Glucose [Mass/Vol] 181 mg/dL Critically high 74-106 [facility] Comment on above: Performed By: #### C BC #### [facility] [address] [place] [address] Dr. Graeme Webster Potassium [Moles/Vol] 3.5 mmol/L Normal 3.4-5.0 [facility] Comment on above: Performed By: #### C BC #### [facility] [address] [place] [address] Dr. Graeme Webster Sodium [Moles/Vol] 141 mmol/L Normal 137-145 [facility] Comment on above: Performed By: #### C BC #### [facility] [address] [place] [address] Dr. Graeme Webster Urea nitrogen [Mass/Vol] 16.0 mg/dL Normal 7.0-17.0 [facility] Comment on above: Performed By: #### C BC #### [facility] [address] [place] [address] Dr. Graeme Webster Urea nitrogen/Creatinine [Mass ratio] 22.9 mg/mg Normal [facility] Comment on above: Performed By: #### C BC #### [facility] [address] [place] [address] Dr. Graeme Webster Pathology Noteon 05-22-2021 Pathology Note [id number]:12 7 Normal [facility] Outside Colonoscopyon 2020 Outside Colonoscopy [id number]:12 7 Normal [facility] POINT OF CARE GLUCOSEon 04-30 Glucose [Mass/Vol] 161 mg/dL Critically high 74-106 [facility] Comment on above: Performed By: #### P OCGLUC #### [facility] [address] [place] [address] Dr. Graeme Webster Lab Reportson 05-19-2021 Lab Reports [id number]:12 7 Normal [facility] Covid-19 PCR (CVDTBH)on 04-29 SARS-CoV-2 (COVID-19) RNA ELVIA+probe Ql (Unsp spec) Not detected Normal NOT DETECTED [facility] Comment on above: Result Comment: This test is not yet approved or cleared by the [place] FDA. When there are no FDA-approved or cleared tests available, and other criteria are met, FDA can make tests available under an emergency access mechanism called an Emergency Use Authorization (EUA). The EUA for this test is supported by the [place] of Health and Human Service's (HHS's) declaration that circumstances exist to justify the emergency use of in vitro diagnostics for the detection and/or diagnosis of the virus that causes COVID-19. This EUA will remain in effect (meaning this test can be used) for the duration of the COVID-19 declaration justifying emergency of IVDs, unless it is terminated or revoked by FDA (after which the test may no longer be used). When diagnostic testing is negative, the possibility of a false negative should be considered in the context of a patient's recent exposures and the presence of clinical signs and symptoms consistent with SARS-CoV-2. Performed By: #### C #### [facility] [address] [place] [address] Dr. Graeme Webster Consenton 04-17-2021 Consent [id number]:127 Normal [facility] Ambulatory Clinical Summaryo n 04-16-2021 Ambulatory Clinical Summary {[id number] Normal [facility] General Surgery Office/Clini c Noteon 04-16-2021 General Surgery Office/Clinic Note HPI Staff New pt., referred by JOHNIE Bergeron for diarrhea x3 months (+) gets constipated and also gets diarrha last cscope [address] 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 no tobacco use. Review of Systems ROS - Provider Constitutional: no fever, no sweats, no weight loss. Eyes: yes glasses, no blurred vision, no visual loss. ENMT: no dentures, no hoarseness, no swallowing difficulties, no hearing loss, no ear infection(s), no nose bleeds. Cardiovascular: normal blood pressure, no chest pain, regular heartbeat, no heart murmur. Respiratory: no shortness of breath, no cough, no asthma, no wheezing. Gastrointestinal: no nausea, no vomiting, no diarrhea, no constipation, yes blood in stool, yes change in bowel habits, no abdominal pain, no hepatitis. Genitourinary: no kidney stones, no urine infection, no dysuria. Musculoskeletal: no pain, no weakness. Skin: no changing moles, no rash, no skin lumps. Neurologic: no seizures, no epilepsy, no headache. Psychiatric: no emotional or psychiatric problem. Heme/Lymph: no bleeding problems, no anemia, no blood clots, no transfusions. Allergy/Immunologic: no swollen lymph nodes/glands, no IV drug abuse. Other: Additional ROS info: Except as noted in the above Review of Systems and in the History of Present Illness, all other systems have been reviewed and are negative or noncontributory. Physical Exam Vitals & Measurements T: 36.6 ?C (Temporal Artery) HR: 85(Peripheral) RR: 16 BP: 154/78 SpO2: 97% HT: 162.56 cm HT: 162.6 cm WT: 62.1 kg WT: 62.1 kg BMI: 23.5 HEENT: normal conjunctiva, sclera clear, no scleral icterus, EOM intact, PERRLA, oral mucosa moist without lesions. Neck: trachea midline, no mass, symmetric, no thyromegaly or nodules, no adenopathy Respiratory: lungs CTA, respirations non labored. Cardiovascular: regular rate and rhythm, no murmur, no pedal edema or varicosities. Gastrointestinal: soft, non distended, no tenderness, no masses, no palpable hernias, well-healed lower abdominal incision and laparoscopic incisions. diastasis recti no, no hepatosplenomegaly; hyperactive bs Lymphatic: no cervical adenopathy, Musculoskeletal: normal gait, digits and nails without infection, nodes, cyanosis, clubbing. Skin: no rashes, no lesions, no ulcers, no subcutaneous nodules, induration. Psychiatric/Neuro: oriented to time, place, person, judgement normal, affect appropriate for age, insight intact, no focal deficits. Tests: review of old records completed, Discussed surgical options, risks, and possible complications with patient. Assessment/Plan 1. Change in bowel habits (R19.4: Change in bowel habit) plan colonoscopy under anesthesia for further evaluation, informed consent obtained. 2. Hematochezia (K92.1: Melena) see # 1 Follow-up No qualifying data available Problem List/Past Medical History Ongoing Back problem Change in bowel habits Diabetes Diverticulosis Ganglion cyst Hematochezia Hypertension Macular degeneration Osteoporosis Rotator cuff tear, right Historical No qualifying data Procedure/Surgical History Resection (08/29/2009), Arthroscopy, Back, Benign soft tissue tumor, Cholecystectomy, Colonoscopy, History of lumbar spine surgery, Hysterectomy, Rotator cuff repair. Medications diphenhydramine 25 mg tab, See Instructions gabapentin 300 mg Cap, 300 mg= 1 cap(s), Oral, BID glyBURIDE 5 mg Tab, 10 mg= 2 tab(s), Oral, BID meloxicam 7.5 mg oral tablet, 7.5 mg= 1 tab(s), Oral, q120hr metformin 500 mg oral tablet, 500 mg= 1 tab(s), Oral, BID ropinirole 0.25 mg Tab, 0.5 mg= 2 tab(s), Oral, Daily Allergies Cipro (Hives) Synvisc (Edema) simvastatin (Nausea and vomiting) temazepam (Rash) Social History Alcohol - Denies Alcohol Use, 04/16/2021 Substance Abuse - Denies Substance Abuse, 04/16/2021 Tobacco Never (less than 100 in lifetime) Tobacco Use:., 04/16/2021 Family History Heart disease: Father. Stroke: Mother. Immunizations Vaccine Date Status SARS-CoV-2 (COVID-19) mRNA BNT-162b2 vax 10/11/2020 Recorded SARS-CoV-2 (COVID-19) mRNA-1273 vaccine 09/20/[address] [facility] Comment on above: Result Comment: Elec tronically Signed By: NARENDRA CAMPO, Jesisca Figueroa\Date and Time Signed: 04/16/21 11:07 EDT Physician Referralon 021 Physician Referral [id number] [facility] Vital Signs Date Time Vital Sign Value Performing Clinician Facility 12-13-2022 11:47-0400 Diastolic blood pressure 76 mm[Hg] MD Fernando Diamond Work Phone: [facility] 12-13-2022 11:47-0400 Heart rate 71 /min MD Fernando Diamond Work Phone: [facility] 12-13-2022 11:47-0400 Respiratory rate 18 /min MD Fernando Diamond Work Phone: [facility] 12-13-2022 11:47-0400 SaO2% (BldA) [Mass fraction] 96 % MD Fernando Diamond Work Phone: [facility] 12-13-2022 11:47-0400 Systolic blood pressure 142 mm[Hg] MD Fernando Diamond Work Phone: [facility] 12-13-2022 11:02-0400 Body height 162.56 cm MD Fernando Diamond Work Phone: [facility] 12-13-2022 11:02-0400 Body temperature 97.4 [degF] MD Fernando Diamond Work Phone: [facility] 12-13-2022 11:02-0400 Body weight 64.1 kg MD Fernando Diamond Work Phone: [facility] 08-19-2021 15:00-0500 Body weight 62.6 kg Sadiq Barton Other [facility] Other Encounters Encounter Date Encounter Type Care Provider Facility Start: 09-27-2023 End: 09-27-2023 ambulatory VELASQUEZ MORALES Not Available Start: 09-21-2023 End: 09-21-2023 ambulatory CONRADO AMBRIZ Not Available Start: 07-12-2023 End: 07-12-2023 ambulatory VELASQUEZ Adair ANDREW Not Available Start: 12-13-2022 End: 12-13-2022 Emergency department patient visit Fernando Diamond Facility:[facility] Start: 12-13-2022 End: 12-13-2022 Emergency department patient visit MD Fernando Diamond Work Phone: [facility] Work Phone: Start: 04-30-2022 End: 05-01-2022 Evaluation and management of inpatient DR CONRADO AMBRIZ Facility:[facility] Start: 08-26-2021 End: 08-26-2021 ambulatory SADIQ COLEMANKannan Facility:[facility] Start: 08-19-2021 End: 08-19-2021 ambulatory Dante Renee Other [facility] Other Start: 08-19-2021 [facility] visit new patient Sadiq Pastorradhika [facility] Start: 08-19-2021 Telephone encounter Dante Renee [facility] Start: 05-31-2021 Encounter for other preprocedural examination DR JESSICA MACKEY [facility] Start: 05-28-2021 End: 05-29-[address] JESSICA MACKEY Facility:[facility] Start: 05-27-[address] JESSICA MACKEY Facilit y:[facility] Start: 05-25-2021 End: 05-26-[address] JESSICA MACKEY Facility:[facility] Start: 05-23-2021 End: 05-23-2021 ambulatory DEXTER TAY Facility:[facility] Start: 05-20-2021 End: 05-20-[address] JESSICA MACKEY Facility:[facility] Start: 05-16-2021 End: 05-17-[address] JESSICA MACKEY Facility:[facility] Start: 05-16-2021 End: 05-17-2021 Encounter for other preprocedural examination DR JESSICA MACKEY Facility:[facility] Procedures Date Procedure Procedure Detail Performing Clinician Start: 12-13-2022 Screening for occult blood in feces MD Fernando Diamond Work Phone: Plan of Treatment Date Care Activity Detail Author Patient Education Bloody Stools, Adult ED [facility] Work Phone: Patient referral [facility] Work Phone: Immunizations Immunization Date Immunization Notes Care Provider Sarika santos 07-08-2021 COVID-19 [facility] (Pfizer) MD Fernando Diamond Work Phone: [facility] 10-11-2020 COVID-19 [facility] (Pfizer) MD Fernando Diamond Work Phone: [facility] 09-20-2020 COVID-19 [facility] (Pfizer) MD Fernando Diamond Work Phone: [facility] Payers Date Payer Category Payer Medicare [id number] 2.1 [id number] 1959 Unknown [id number] 2. [id number] 1936 Unknown [id number] 2.16.84 [id number] 1936 Unknown [id number] 2.16.84 [id number] 1936 Unknown [id number] 2.16.84 [id number] 1936 Unknown [id number] 2.16.84 [id number] 1936 Unknown [id number] 2.16.84 [id number] 1936 Unknown [id number] 2.16.84 [id number] 1936 Unknown [id number] 2.16.84 [id number] 1936 Unknown [id number] 2.16.84 [id number] 1936 Unknown [id number] 2.16.84 [id number] 1936 Unknown [id number] 2.16.84 [id number] 1936 Unknown [id number] 2.16.840. [id number] Medicare Medicare Nonpatient [id number] Self-pay Self Pay [id number] Unknown [place] [id number] Social History Date Type Detail Facility Sex Assigned At [employer] Other Start: 12-13-2022 Tobacco smoking stat [facility] Never smoked tobacco (finding) [facility] Start: 1935 Sex Assigned At Female F [facility] Evaluation note 08-19-2021 Note Date & Type Note Facility 08-19-2021 Evaluation note Encounter Date Diagnosis Assessment Notes Jul, Diarrhea (ICD-10 - R19.7) Stool sutdies as indicated above Start Imodium 1 tablet every morning Flex sig Jul, Fecal incontinence (ICD-10 - R15.9) [facility] Other Reason for visit Narrative 08-14-2021 Note Date & Type Note Facility 08-14-2021 Reason for visit Narrative PATIENT HERE AT THE REQUEST OF DR. AMBRIZ FOR EVALUATION & TREATMENT OF DIARRHEA, 08/14/21 OBTAINED COLONOSCOPY FROM [employer] MESSAGE AT DR MACKEY'S OFFICE FOR PATHOLOGY REPORT TO BE FAXED [employer] Other Clinical Note 05-20-2021 Note Date & Type Note Facility 05-20-2021 Note OPERATIVE NOTE OPERATION DATE: 05-20-21 ANESTHETIC:Monitored anesthesia care. PREOPERATIVE DIAGNOSIS: Bowel changes, hematochezia. POSTOPERATIVE DIAGNOSIS:Redundant colon, sigmoid diverticulosis as well as a5 mm pedunculated rectal polyp. PROCEDURE NAME:Colonoscopy to the terminal ileum with hot snare polypectomy x1 for rectal polyp. ESTIMATED BLOOD LOSS: Less than 1 mL. INDICATIONS AND CONSENT: The patient is an 85 year-old female with history of intermittent loose stools as well as hematochezia. Indications, benefits, and alternatives of proceeding with colonoscopy were explained extensively to the patient including the risk of bleeding colon perforation, or anesthetic complications. All of her questions were answered and informed consent was obtained. PROCEDURE: The patient was brought to the OR and placed in the left lateral decubitus position. Monitored anesthesia care was provided. Rectal exam was performed which showed no masses or blood. The scope was inserted into the anal canal, under direct visualization was advanced. It was advanced to the cecum where cecal markings were identified. The terminal ileum was intubated and normal to be normal. Upon withdrawal of the scope mucosal surfaces were carefully examined. There were no mass lesions or inflammatory changes. There was a moderate segment of diverticulosis within the lower colon which may have been the residual sigmoid since the patient had sigmoid colectomy vs descending colon. Within the rectum at approximately 12 cm there was noted to be a 5 mm pedunculated polyp with some superficial irritation, this was removed with hot snare with good hemostasis and sent off to pathology. There was no significant hemorrhoidal disease. The scope was then withdrawn, the patient tolerated the procedure well and was sent to the Recovery Room in good condition. cc:Dr. Conrado Ambriz. [facility] Signed and Approved by: DR JESSICA MACKEY . 05/20/2021 11:18:00 [facility] Evaluation note Note Date & Type Note Facility Evaluation note No Information [email or web address] Other Evaluation note Note Date & Type Note Facility Evaluation note No assessment information availa ble [facility] Work Phone: History general Narrative - Reported Note Date & Type Note Facility History general Narrative - Reported Type Medical History Type 2 diabetes Medical History osteoporosis Medical History hypertension Medical History diverticulosis Medical History arthrits Medical History macular degeneration Surgical History fatty tumor left shoulder Surgical History right rotatorcuff Surgical History left rotator cuff Surgical History excision of ganglion cyst Surgical History cholycyctectomy Surgical History hysterectomy Surgical History lumbar back surgery Hospitalization History SEE ABOVE [facility] Other Hospital Discharge instructions Note Date & Type Note Facility Hospital Discharge instructions Additional Instructions Continue current meds Follow-up with your private physician Return if symptoms are worse [facility] Work Phone: Summary Purpose Family History No Family History Records Found Relationship Condition Age at Onset Recorded Date/T sher father Heart problem Unknown Advance Directives No Advanced Directives Records Found Advance Directive Response Recorded Date/ Time Advance Directives No September 03, 2021 12:14pm Chief Complaint and Reason for Visit Chief Complaint rectal bleeding Additional Source Comments INFORMATION SOURCE (unrecogn ized section and content) DATE CREATED AUTHOR 06/04/2021 Lizarraga [facility] DATE CREATED AUTHOR AUTHOR'S ORGANIZ ATION 01/18/2022 [facility] Specialist DATE CREATED AUTHOR AUTHOR'S ORGANIZ ATION 05/07/2022 [facility] DATE CREATED AUTHOR AUTHOR'S ORGANIZ ATION 12/14/2022 [facility] DATE CREATED AUTHOR AUTHOR'S ORGANIZ ATION 09/28/2023 [facility] d[facility] Specialists EPIC REASON FOR VISIT (unrecogniz ed section and content) error Care Teams (unrecognized sec tion and content) Team Status: Active Member Role Status Dates Conrado Ambriz II MD Primary Care Provider Active Team Status: Inactive Member Role Status Dates Fernando Diamond MD Emergency Provider Active Conrado Ambriz II MD Primary Care Provider Active Goals (unrecognized section and content) Goals may be documented in a n alternate section FOR RECORDS PERTAINING TO PATIENTS WHO ARE OR HAVE BEEN ENROLLED IN A CHEMICAL DEPENDENCY/SUBSTANCEABUSE PROGRAM, SOME INFORMATION MAY BE OMITTED. This clinical summary was aggregated from multiple sources. Caution should be exercised in using it in the provision of clinical care. This summary normalizes information from multiple sources, and as a consequence, information in this document may materially change the coding, format and clinical context of patient data. In addition, data may be omitted in some cases. CLINICAL DECISIONS SHOULD BE BASED ON THE PRIMARY CLINICAL RECORDS. [facility] [employer] [facility]. provides no warranty or guarantee of the accuracy or completeness of information in this document.
--- NOTE | 2023-10-26 11:21 | P.CN_ITS ---
Consult Note: HPI Data of Consult Patient: known to practice within the last 3 years Consult date: 07/25/23 Requesting Physician: Candie Merchant NP Primary Care Provider: MARCOS SANTOS Consult Narrative Reason for consult: left knee pain Narrative: 87yof who presents for assessment of chronic knee left pain, pain 0/10 increases to 1-2/10 with twisting motions. Denies numbness tingling weakness or edema. Patient reporting significant ongoing improvement from previous left knee durolane injection. cc:: CC: Candie Merchant NP Review of Systems ROS Status of ROS 10 or more systems reviewed and unremark able except as noted in history and below Musculoskeletal Reports: joint pain Meds Home Medications and Allergies Home Medications Medication Instructions Recorded Confirmed Type amlodipine 5 mg tablet 5 mg PO DAILY 07/25/23 07/25/23 History benazepril 20 mg tablet 20 mg PO DAILY 07/25/23 07/25/23 History gabapentin 300 mg capsule 300 mg PO BID 07/25/23 07/25/23 History glyburide 5 mg tablet 5 mg PO DAILY 07/25/23 07/25/23 History levothyroxine 50 mcg capsule 50 mcg PO DAILY 07/25/23 07/25/23 History ropinirole 0.25 mg tablet 0.25 mg PO DAILY 07/25/23 07/25/23 History sitagliptin phosphate 100 mg 100 mg PO DAILY 07/25/23 07/25/23 History tablet (Januvia) Allergies Allergy/AdvReac Type Severity Reaction Status Date / Time simvastatin Allergy Verified 07/25/23 14:36 avelox Allergy Uncoded 07/25/23 14:36 synvisc Allergy Uncoded 07/25/23 14:36 Exam Constitutional Documenting provider has reviewed patient's vital signs: yes Common normals: no apparent distress, oriented x3, healthy appearing, alert and well nourished General appearance: cooperative HENMT Common normals: normocephalic, hearing grossly normal bilaterally and moist oral mucous membranes Head and scalp: normocephalic Eye Common normals: PERRL Pupil: PERRL Neck & C-Spine Common normals: full ROM General: normal visual inspection Chest Common normals: inspection of chest normal Respiratory Common normals: normal respiratory effort, no retractions and no use of accessory muscles Extremity Right lower extremity: knee joint Other: mild pain with medial and lateral stress testing negative for edema, mild crepitus noted Neuro Common normals: oriented x3, CN's II-XII intact bilaterally, moves all extremities, no focal motor deficits, no sensory deficits noted and deep tendon reflexes 2+ bilaterally Sensorium/orientation: alert Motor exam: strength 5/5 throughout and no movement abnormalities noted Psych Common normals: mental status grossly normal, thought process normal, cooperative, affect normal, speech normal and activity/motor behavior normal Speech: normal speech Thought process: normal thought process Assessment and Plan Assessment and Plan (1) Osteoarthritis of left knee: Plan consider repeat left durolane injection when moderate to severe pain returns f/u as needed
== END 2023-10-26 10:49 | disposition home or self-care (01) ==
LOC: PM 11:03
PROVIDERS: PCP Internal Medicine; Visit Provider Nurse Practitioner
DX: M17.12 Unilateral primary osteoarthritis, left knee (principal)
CPT/HCPCS: G0463

== ENCOUNTER 2025-04-12 09:56 | Emergency (ER) | payer MEDICARE, OTHER, SELFPAY ==
[2025-04-12] VITALS (25 sets, daily range): BP systolic 117–149; BP diastolic 67–88; PULSE 73–88; TEMP 37; O2SAT 84–99; BMI 24.0
--- OUTSIDE RECORDS SUMMARY | 2025-04-12 10:14 | XMS_ITS | CCD ---
Author Organization [facility] Care Team Providers Care Accelerator Systems Director Name Role Phone Sadiq Barton Unavailable Dante Renee Unavailable NARENDRA, DR LOPEZ Attending Unavailable AMBRIZ, DR RODRÍGUEZ [...] WINCHA Consulting Unavailable NASCIMENTO, DAYANNA Consulting Unavailable DITTY, SADIQ Consulting Unavailable DITTLeslie, SADIQ Attending Unavailable DITTLeslie, SADIQ Admitting Unavailable AMBRIZ, DR RODRÍGUEZ Primary Care Unavailable NILL, DR LOPEZ Consulting Unavailable NILL, DR LOPEZ Attending Unavailable NILL, DR LOPEZ Admitting Unavailable AMBRIZ, DR RODRÍGUEZ Primary Care Unavailable NILL, DR LOPEZ Consulting Unavailable DEXTER TAY Attending Unavailable JASVIR, DEXTER Admitting Unavailable AMBRIZ, DR RODRÍGUEZ Primary Care Unavailable JASVIR, DEXTER Consulting Unavailable JASVIR, DEXTER Consulting Unavailable JASVIR, DEXTER Attending Unavailable JASVIR, DEXTER Admitting Unavailable AMBRIZ, [...] Emergency Provider LEANN Ambriz Primary Care Provider LEANN Ambriz Primary Care Provider MD Sadiq Barton Attending Provider [phone] Conrado Ambriz MD Primary Care Provider [phone] Conrado Ambriz MD Unavailable Sadiq Barton Admitting Unavailable Sadiq Barton Attending Unavailable Conrado Ambriz Primary Care Unavailable Conrado Ambriz Primary Care Unavailable Nayan Dominguez Admitting Unavailable Nayan Dominguez Attending Unavailable Conrado Ambriz II Primary Care Provider [phone] Nayan Dominguez APRN Attending Provider Kristel Rain RN Unavailable Conrado Ambriz II Primary Care Provider [phone] Nayan Dominguez APRN Attending Provider Lr RN EMBEDDED, Merna Unavailable Unavailable Lr RN EMBEDDED, Merna Unavailable PREM MORALES Attending Unavailable ADONAY DIOP Attending Unavailable CONRADO AMBRIZ Attending Unavailable ERASMO ALVAREZ Attending Unavailable CONRADO AMBRIZ Referring Unavailable ERASMO ALVAREZ Referring Unavailable PREM MORALES Attending Unavailable CONRADO AMBRIZ Attending Unavailable PREM MORALES Attending Unavailable PREM MORALES Attending Unavailable CONRADO AMBRIZ Attending Unavailable ANALY MARTINEZ Attending Unavailable PREM MORALES Attending Unavailable CONRADO AMBRIZ Attending Unavailable CONRADO AMBRIZ Attending Unavailable Allergies Allergy Classification Reported Allergen(s) Allergy Type Date of Onset Reaction(s) Facility (9 sources) Adhesive agent Drug allergy 4 Unknown, Unknown Reaction, Rash [facility] (20 sources) Ciprofloxacin Drug Allergy 3 Rash [facility] (10 sources) HYLAN G-F 20 Drug Allergy 3 Swelling [facility] (20 sources) moxifloxacin Drug Allergy 8 hives [facility] (10 sources) Simvastatin Drug Allergy 3 stomach upset, Diarrhea/Vomit ing, Diarrhea/Vomit ing, stomach upset [facility] (9 sources) Temazepam Drug Allergy 4 rash, sore mouth [facility] (1 source) Ciprofloxacin Drug Allergy [facility] (1 source) HYLAN G-F 20 Drug Allergy 5 [facility] (1 source) moxifloxacin Drug Allergy 0 [facility] (1 source) Simvastatin Drug Allergy 5 [facility] (8 sources) bandaid Allergy to substance 3 [facility] (20 sources) Ciprofloxacin Drug Allergy 3 Rash [facility] (20 sources) metFORMIN Drug Allergy 3 Diarrhea [facility] (20 sources) Simvastatin Allergy to substance 8 GI intolerance, Nausea And Vomiting [facility] (20 sources) Temazepam Allergy to substance 3 Rash [facility] (20 sources) Hylan G-F 20 Propensity to adverse reactions 8 Swelling [facility] (20 sources) Wound Dressing Adhesive Drug Allergy 3 Rash [facility] Medications Current Medications Medication Drug Class(es) Dates Sig (Normalized) Sig (Original) amLODIPine 5 mg oral tablet (20 sources) Dihydropyridine Calcium Channel Dasia Start: 01-28-2025 take 1 tablet by mouth once daily amLODIPine (Norvasc) 5 MG tablet Indications: Benign essential hypertension Take 1 tablet (5 mg) by mouth Daily 100 tablet 3 01/28/2025 Active Start: 09-09-2021 take 1 tablet by erika th once daily Amlodipine 5 mg tablet Active 5 MG PO Daily September 09, 2021 1:00am take 1 tablet by erika th every twenty-four hours amLODIPine Besylate 5 MG 1 tablet Orally Once a day Active amoxicillin 500 mg oral capsule (4 sources) Penicillin-class Antibacterial Start: 02-04-2025 End: 02-11-2025 take 1 capsule by mouth in the morning, then take 1 capsule by mouth in the evening, then take 1 capsule by mouth at bedtime amoxicillin (Amoxil) 500 MG capsule Indications: Acute non-recurrent frontal sinusitis Take 1 capsule (500 mg) by mouth in the morning and 1 capsule (500 mg) in the evening and 1 capsule (500 mg) before bedtime. Do all this for 7 days. 21 capsule 02/04/2025 02/11/2025 Active Start: 10-25-2024 End: 11-04-2024 take 1 capsule by mouth in the morning, then take 1 capsule by mouth in the evening, then take 1 capsule by mouth at bedtime amoxicillin (Amoxil) 500 MG capsule Indications: Acute non-recurrent frontal sinusitis Take 1 capsule (500 mg) by mouth in the morning and 1 capsule (500 mg) in the evening and 1 capsule (500 mg) before bedtime. Do all this for 10 days. 30 capsule 10/25/2024 11/04/2024 Active azithromycin 250 mg oral tablet (2 sources) Macrolide Antimicrobial Start: 11-29-2024 End: 12-04-2024 take 2 tablets by mouth once daily, then take 1 tablet by mouth once daily azithromycin (Zithromax) 250 MG tablet Indications: Acute non-recurrent frontal sinusitis Take 2 tablets (500 mg) by mouth Daily for 1 day, THEN 1 tablet (250 mg) Daily for 4 days. 6 tablet 11/29/2024 12/04/2024 Active b complex vitamins capsule (20 sources) take 1 capsule by mouth in the morning b complex vitamins capsule Take 1 capsule by mouth in the morning. Active baclofen 10 mg oral tablet (2 sources) gamma-Aminobutyric Acid-ergic Agonist take 2 tablets by mouth once daily at mealtime Baclofen 10 MG 2 tablets with food or milk Orally Once a day Active benazepril hydrochloride 20 mg oral tablet (20 sources) Angiotensin Converting Enzyme Inhibitor Start: 09-09-2021 End: 01-12-2025 benazepril (Lotensin) 20 MG tablet Indications: Benign essential hypertension TAKE 1 TABLET DAILY 90 tablet 3 12/19/2024 Active take 1 tablet by erika every twenty-four hours Benazepril HCl 20 MG 1 tablet Orally Onc e a day Active Calcium (20 sources) Phosphate Binder, Calcium take 1 tablet by mouth once daily Calcium 250 MG capsule Take 1 tablet by mouth Daily Active Calcium + D3 Act alisia cefdinir 300 mg oral capsule (4 sources) Cephalosporin Antibacterial Start: 08-01-2024 End: 08-08-2024 take 1 capsule by mouth in the morning cefdinir (Omnicef) 300 MG capsule Indications: Acute cystitis without hematuria , Acute non-recurrent sinusitis, unspecified location Take 1 capsule (300 mg) by mouth in the morning and 1 capsule (300 mg) before bedtime. Do all this for 7 days. 14 capsule 08/01/2024 08/08/2024 Active Start: 06-11-2024 End: 06-18-2024 take 1 capsule by mouth in the morning cefdinir (Omnicef) 300 MG capsule Indications: Acute non-recurrent sinusitis, unspecified location Take 1 capsule (300 mg) by mouth in the morning and 1 capsule (300 mg) before bedtime. Do all this for 7 days. 14 capsule 06/11/2024 06/18/2024 Active cinnamon preparation 500 mg oral tablet (2 sources) Non-Standardized Food Allergenic Extract Cinnamon 500 MG as directed Orally Active diphenhydrAMINE (2 sources) Histamine-1 Receptor Antagonist Benadryl Active Eye Vitamins (2 sources) Eye Vitamins Active gabapentin 300 mg oral capsule (20 sources) Anti-epileptic Agent Start: take 1 capsule by mouth in the morning gabapentin (Neurontin) 300 MG capsule Indications: Type 2 diabetes mellitus with peripheral neuropathy (HCC) Take 1 capsule (300 mg) by mouth in the morning and 1 capsule (300 mg) before bedtime. 200 capsule 3 01/28/2025 Active Start: 09-09-2021 take 1 capsule by [facility] twice daily Gabapentin 300 mg capsule Active 300 MG PO Twice daily September 09, 2021 1:00am take 1 capsule by [facility] every twenty-four hours Gabapentin 300 MG 1 capsule Orally Once a day Active glipiZIDE 5 mg oral tablet (20 sources) Sulfonylurea Start: 03-19-2025 take 1 tablet by mouth once daily at mealtime, then take 2 tablets by mouth at mealtime glipiZIDE (Glucotrol) 5 MG tablet Indications: Type 2 diabetes mellitus with peripheral neuropathy (HCC) Take 1 tablet (5 mg) by mouth Daily with meals AND 2 tablets (10 mg) in the evening. Take with meals. 300 tablet 3 03/19/2025 Active Start: 02-04-2025 take 1 tablet by [facility] once daily at mealtime, then take 2 tablets by mouth at mealtime glipiZIDE (Glucotrol) 5 MG tablet Indications: Type 2 diabetes mellitus with peripheral neuropathy (CMS/HCC) Take 1 tablet (5 mg) by mouth Daily with meals AND 2 tablets (10 mg) in the evening. Take with meals. 300 tablet 3 02/04/2025 Active Start: 02-04-2025 take 1 tablet by erika th once daily at mealtime, then take 2 tablets by mouth at mealtime glipiZIDE (Glucotrol) 5 MG tablet Indications: Type 2 diabetes mellitus with peripheral neuropathy (CMS/HCC) Take 1 tablet (5 mg) by mouth Daily with meals AND 2 tablets (10 mg) in the evening. Take with meals. 300 tablet 3 02/04/2025 Active Start: 01-28-2025 End: 02-04-2025 take 1 tablet by mouth in the morning glipiZIDE (Glucotrol) 5 MG tablet Indications: Type 2 diabetes mellitus with peripheral neuropathy (CMS/HCC) Take 1 tablet (5 mg) by mouth in the morning and 1 tablet (5 mg) in the evening. Take before meals. 200 tablet 3 01/28/2025 02/04/2025 Discontinued (Reorder) Start: 09-19-2024 take 1 tablet by erika th in the morning glipiZIDE (Glucotrol) 5 MG tablet Take 5 mg by mouth in the morning and 5 mg in the evening. Take before meals. 09/19/2024 Active Start: 05-09-2024 End: 07-02-2024 take 1 tablet by mouth once daily glipiZIDE (Glucotrol) 5 MG tablet Take 5 mg by mouth 1 (one) time each day 05/09/2024 07/02/2024 Discontinued (Other) Start: 05-09-2024 take 2 tablets by mo uth once daily Glipizide 5 mg tablet Active 10 MG PO Daily May 09, 2024 12:00am Start: 05-09-2024 take 10 mg by mouth once daily Glipizide Active 10 MG PO Daily May 09, 2024 12:00am hydrocortisone valerate 2 mg/ml topical cream (2 sources) Corticosteroid Hydrocortisone V alerate 0.2 % 1 application Externally Once a day Active levothyroxine sodium 0.05 mg oral tablet (20 sources) l-Thyroxine Start: 09-09-2021 End: 12-19-2024 levothyroxine (Synthroid, Levoxyl) 50 MCG tablet Indications: Acquired hypothyroidism TAKE 1 TABLET DAILY 90 tablet 3 12/19/2024 Active take 1 tablet by erika th once daily in the morning Synthroid 50 [...] needed Orally Four times a day Active lubiprostone (20 sources) Chloride Channel Activator Start: 10-15-2024 take 1 capsule by mouth twice daily Lubiprostone (Amitiza) 24 mcg capsule Active 24 MCG PO Twice daily 180 90 October 15, 2024 1:00am Start: 10-15-2024 take 1 capsule by mo uth twice daily Lubiprostone (Amitiza) 24 mcg capsule Active 24 MCG PO Twice daily 180 90 October 15, 2024 12:00am Start: 07-24-2024 End: 10-15-2024 take 1 capsule by mouth twice daily Lubiprostone (Amitiza) 8 mcg capsule Discontinued 8 MCG PO Twice daily 180 July 24, 2024 2:35pm October 15, 2024 11:39am Start: 07-24-2024 End: 10-15-2024 take 1 capsule by mouth twice daily Lubiprostone (Amitiza) 8 mcg capsule Discontinued 8 MCG PO Twice daily 180 July 24, 2024 1:35pm October 15, 2024 10:39am Start: 07-24-2024 take 1 capsule by [facility] twice daily Lubiprostone (Amitiza) 8 mcg capsule Active 8 MCG PO Twice daily 180 July 24, 2024 1:35pm Start: 07-24-2024 End: 07-24-2024 take 1 capsule by mouth twice daily Lubiprostone (Amitiza) 8 mcg capsule Discontinued 8 MCG PO Twice daily 180 July 24, 2024 2:34pm July 24, 2024 2:36pm Start: 07-24-2024 End: 07-24-2024 take 1 capsule by mouth twice daily Lubiprostone (Amitiza) 8 mcg capsule Discontinued 8 MCG PO Twice daily 180 July 24, 2024 1:34pm July 24, 2024 1:36pm Start: 06-20-2024 End: 07-24-2024 take 1 capsule by mouth twice daily Lubiprostone (Amitiza) 8 mcg capsule Discontinued 8 MCG PO Twice daily 180 90 June 20, 2024 12:00am July 24, 2024 2:35pm Start: 06-20-2024 End: 07-24-2024 take 1 capsule by mouth twice daily Lubiprostone (Amitiza) 8 mcg capsule Discontinued 8 MCG PO Twice daily 180 90 June 19, 2024 11:00pm July 24, 2024 1:35pm Start: 06-20-2024 take 1 capsule by mo ut twice daily Lubiprostone (Amitiza) 8 mcg capsule Active 8 MCG PO Twice daily 180 90 June 20, 2024 12:00am take 1 capsule by mo [facility] in the morning lubiprostone (Amitiza) 8 MCG capsule Take 8 mcg by mouth in the morning and 8 mcg in the evening. Take with meals. Active meloxicam 7.5 mg oral tablet (20 sources) Nonsteroidal Anti-inflammatory Drug Start: 01-09-2024 End: 01-08-2025 meloxicam (Mobic) 7.5 MG tablet Indications: Degenerative disc disease, lumbar TAKE 1 TABLET DAILY 90 tablet 3 12/19/2024 Active omeprazole 40 mg delayed release oral capsule (20 sources) Proton Pump Inhibitor Start: 08-01-2024 End: 08-31-2025 take 1 capsule by mouth before mealtime omeprazole (PriLOSEC) [address] capsule Indications: Gastroesophageal reflux disease, 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 esophagitis present Take 1 capsule (40 mg) by mouth in the morning. Take before meals. Do not crush or chew.. 90 capsule 3 08/31/2024 08/31/2025 Active Omeprazole 40 mg capsule,delayed release(DR/EC) (4 sources) Start: 10-03-2024 Omeprazole 40 mg capsule,delayed release(DR/EC) Active 40 MG PO October 03, 2024 1:00am Start: 10-03-2024 Omeprazole 40 mg capsule,delayed release(DR/EC) Active 40 MG PO October 03, 2024 12:00am potassium chloride 10 meq extended release oral tablet (2 sources) take 1 tablet by mouth every twelve hours Potassium Chloride ER 10 MEQ 1 tablet with food Orally Twice a day Active probiotic (2 sources) probiotic Active rOPINIRole 1 mg oral tablet (20 sources) Nonergot Dopamine Agonist Start: 01-28-2025 rOPINIRole (Requip) 1 MG tablet Indications: Restless legs syndrome (RLS) TAKE ONE-HALF (1/2) TABLET DAILY 45 tablet 3 01/28/2025 Active Start: 10-25-2024 End: 01-23-2025 take 0.5 tablet by mouth once daily rOPINIRole (Requip) 1 MG tablet Indications: Restless Leg Syndrome Take 0.5 tablets (0.5 mg) by mouth Daily 45 tablet 10/25/2024 01/23/2025 Active Start: 01-09-2024 End: 10-25-2024 take 1 tablet by mouth once daily at bedtime Ropinirole 1 mg tablet Active 1 MG PO Daily at bedtime April 16, 2024 12:00am Start: 09-09-2021 End: 04-16-2024 take 2 tablets by mouth once daily at bedtime Ropinirole 0.25 mg tablet Discontinued 0.5 MG PO Daily at bedtime September 09, 2021 1:00am April 16, 2024 10:10am Start: 09-09-2021 End: 04-16-2024 take 0.5 mg by mouth once daily at bedtime Ropinirole Discontinued 0.5 MG PO Daily at bedtime September 09, 2021 1:00am April 16, 2024 10:10am take 2 tablets by [facility] every twenty-four hours rOPINIRole HCl 0.25 MG 2 tablets Orally Once a day Active SITagliptin 100 mg oral tablet (20 sources) Dipeptidyl Peptidase 4 Inhibitor Start: 07-04-2023 take 1 tablet by mouth once daily Januvia 100 MG tablet Indications: Type 2 diabetes mellitus with other neurologic complication, without long-term current use of insulin (HCC) TAKE ONE TABLET BY MOUTH EVERY DAY 90 tablet 2 07/13/2024 Active Super Stress B-Complex CR (2 sources) Super Stress B-Complex CR Active triamcinolone acetonide 1 mg/ml topical cream (20 sources) Corticosteroid Start: 11-29-2024 triamcinolone (Kenalog) 0.1 % cream Indications: Psoriasis Apply topically 2 (two) times a day 454 g 1 11/29/2024 Active Start: 04-16-2024 End: 05-09-2024 take 1 spray(s) nasal route once daily Triamcinolone Acetonide (Nasacort) 55 mcg aerosol,spray Discontinued 1 SPRAY INTRANASAL Daily April 16, 2024 12:00am May 09, 2024 8:53am FreeText[employer] spray in each nostril Nasally Once a day; Note: Source Status: Taking; Provider: Oralia Babcock ( ) Start: 08-19-2023 End: 11-29-2024 triamcinolone (Kenalog) 0.1 % cream APPLY TO TRUNK,ARMS, AND LEGS, TWICE A DAY 08/19/2023 11/29/2024 Discontinued (Reorder) take 1 spray(s) nasa l route once daily Nasacort Allergy 24HR 55 MCG/ACT 1 spray in each nostril Nasally Once a day Active Vitamin A 2400 MCG (8000 UT) (2 sources) Vitamin A 2400 M CG (8000 UT) as directed Orally Active Vitamin B Complex (4 sources) Start: 09-09-2021 take 1 tablet by mouth once daily Vitamin B Complex Active 1 TAB PO Daily September 09, 2021 1:00am Vitamin B Complex Tablet (4 sources) Start: 09-09-2021 take 1 tablet by mouth once daily Vitamin B Complex Tablet Active 1 TAB PO Daily September 09, 2021 1:00am Start: 09-09-2021 take 1 tablet by mouth once da luann Vitamin B Complex Tablet Active 1 TAB PO Daily September 09, 2021 12:00am Vitamin C 1000 MG (2 sources) take 1 tablet by erika th once daily Vitamin C 1000 MG 1 tablet Orally Once a day Active Vitamin E 400 UNIT (2 sources) take 1 capsule by mo [facility] once daily Vitamin E 400 UNIT 1 capsule Orally Once a day Active Completed/Discontinued Medications Medication Drug Class(es) Dates Sig (Normalized) Sig (Original) 8 hr acetaminophen 650 mg extended release oral tablet (8 sources) Start: 09-09-2021 End: 04-16-2024 Acetaminophen (Tylenol 8 Hour) 650 mg Tablet Extended Release Discontinued 1300 MG PO Twice daily September 09, 2021 1:00am April 16, 2024 10:11am [id number] Lck-Ycco-Vit-Asb-C (7 sources) Osmotic Laxative, Vitamin C Start: 04-16-2024 End: 06-20-2024 take 1 dose by mouth once daily [id number] Nmu-Gezf-Ksk-Asb-C (Plenvu) 140-9-5.2 gram powder in packet, sequential Discontinued 140 ML PO .COMPLEX 1 April 15, 2024 11:00pm June 20, 2024 10:13am First dose at 4pm the day before colonoscopy, Second dose at 11pm the night before the colonoscopy Start: 04-16-2024 End: 06-20-2024 take 1 dose by mouth once daily [id number] Xbb-Dwsm-Mdd-Asb-C (Plenvu) 140-9-5.2 gram powder in packet, sequential Discontinued 140 ML PO .COMPLEX 1 April 16, 2024 12:00am June 20, 2024 11:13am First dose at 4pm the day before colonoscopy, Second dose at 11pm the night before the colonoscopy Start: 04-16-2024 take 1 dose by mouth once daily [id number] Nzx-Driw-Luw-Asb-C (Plenvu) 140-9-5.2 gram powder in packet, sequential Active 140 ML PO .COMPLEX 1 April 16, 2024 12:00am First dose at 4pm the day before colonoscopy, Second dose at 11pm the night before the colonoscopy calcium carbonate 1500 mg oral tablet (8 sources) Start: 09-09-2021 End: 04-16-2024 take 1 tablet by mouth once daily Calcium Carbonate (Calcium 600) 600 mg calcium (1,500 mg) Tablet Discontinued 600 MG PO Daily September 09, 2021 1:00am April 16, 2024 10:11am cholecalciferol 0.025 mg oral tablet (20 sources) Vitamin D Start: 09-09-2021 End: 04-16-2024 take 1 tablet by mouth once daily Cholecalciferol (Vitamin D3) (Vitamin D3) 25 mcg (1,000 unit) Tablet Discontinued 25 MCG PO Daily September 09, 2021 1:00am April 16, 2024 10:11am take 1 capsule by mouth once molly ly cholecalciferol (Vitamin D-3) 25 MCG (1000 UT) capsule Take 1,000 Units by mouth Daily Active take 1 tablet by erika th every twenty-four hours Vitamin D 25 MCG (1000 UT) 1 tablet Oral ly Once a day Active chondroitin sulfates 200 mg / glucosamine hydrochloride 250 mg oral tablet (8 sources) Start: 09-09-2021 End: 04-16-2024 take 1 tablet by mouth once daily Glucosamine-Chondroitin (Osteo Bi-Flex) 250-200 mg Tablet Discontinued 1 TAB PO Daily September 09, 2021 1:00am April 16, 2024 10:11am cinnamon bark 500 mg oral capsule (8 sources) Start: 09-09-2021 End: 04-16-2024 take 1 capsule by mouth once daily Cinnamon Bark (Cinnamon) 500 mg Capsule Discontinued 500 MG PO Daily September 09, 2021 1:00am April 16, 2024 10:11am glyBURIDE 5 mg oral tablet (20 sources) Sulfonylurea Start: 09-09-2021 End: 05-09-2024 take 2 tablets by mouth once daily Glyburide 5 mg tablet Discontinued 10 MG PO Daily September 09, 2021 1:00am May 09, 2024 8:59am Start: 09-09-2021 End: 01-08-2025 take 1 tablet by mouth in the morning glyBURIDE (Diabeta) 5 MG tablet Indications: Type 2 diabetes mellitus with other neurologic complication, without long-term current use of insulin ([facility]) Take 1 tablet (5 mg) by mouth in the morning and 1 tablet (5 mg) in the evening. Take with meals. 180 tablet 3 01/09/2024 10/25/2024 Discontinued Start: 09-09-2021 End: 05-09-2024 take 10 mg by mouth once daily Glyburide Discontinued 10 MG PO Daily September 09, 2021 1:00am May 09, 2024 8:59am take 2 tablets by [facility] every twenty-four hours glyBURIDE 5 MG 2 tablets Orally Once a day Active Magnesium (8 sources) Start: 09-09-2021 End: 04-16-2024 take 2 tablets by mouth once daily Magnesium 200 mg Tablet Discontinued 400 MG PO Daily September 09, 2021 1:00am April 16, 2024 10:11am Start: 09-09-2021 End: 04-16-2024 take 2 tablets by mouth once daily Magnesium 200 mg Tablet Discontinued 400 MG PO Daily September 09, 2021 12:00am April 16, 2024 9:11am Start: 09-09-2021 End: 04-16-2024 take 400 mg by mouth once daily Magnesium Discontinued 400 MG PO Daily September 09, 2021 1:00am April 16, 2024 10:11am Start: 09-09-2021 take 400 mg by mouth once michael y Magnesium Active 400 MG PO Daily September 09, 2021 1:00am melatonin 10 mg oral tablet (8 sources) Start: 09-09-2021 End: 04-16-2024 take 1 tablet by mouth once daily at bedtime Melatonin 10 mg Tablet Discontinued 10 MG PO Daily at bedtime September 09, 2021 1:00am April 16, 2024 10:11am Psyllium Husk (4 sources) Start: 09-09-2021 End: 04-16-2024 take 0.4 g by mouth once daily Psyllium Husk Discontinued 0.4 GM PO Daily September 09, 2021 1:00am April 16, 2024 10:11am Start: 09-09-2021 take 0.4 g by mouth once daily Psyllium Husk Active 0.4 GM PO Daily September 09, 2021 1:00am Psyllium Husk 0.4 gram Capsu le (4 sources) Start: 09-09-2021 End: 04-16-2024 Psyllium Husk 0.4 gram Capsu le Discontinued 0.4 GM PO Daily September 09, 2021 1:00am April 16, 2024 10:11am Start: 09-09-2021 End: 04-16-2024 Psyllium Husk 0.4 gram Capsu le Discontinued 0.4 GM PO Daily September 09, 2021 12:00am April 16, 2024 9:11am Vit C-Zn Gluc-Herbal No.325 (Elderberry Zinc Vit C) 90-15 mg Lozenge (8 sources) Start: 09-09-2021 End: 04-16-2024 Vit C-Zn Gluc-Herbal No.325 (Elderberry Zinc Vit C) 90-15 mg Lozenge Discontinued 2 LOZENGE PO Daily September 09, 2021 12:00am April 16, 2024 9:10am Start: 09-09-2021 End: 04-16-2024 Vit C-Zn Gluc-Herbal No.325 (Elderberry Zinc Vit C) 90-15 mg Lozenge Discontinued 2 LOZENGE PO Daily September 09, 2021 1:00am April 16, 2024 10:10am Start: 09-09-2021 Vit C-Zn Gluc- Herbal No.325 (Elderberry Zinc Vit C) 90-15 mg Lozenge Active 2 LOZENGE PO Daily September 09, 2021 1:00am vitamin b12 0.1 mg oral tablet (15 sources) Vitamin B12 Start: 04-16-2024 End: 07-02-2024 take 1 tablet by mouth once daily Cyanocobalamin (Vitamin B-12) 100 mcg tablet Discontinued 100 MCG PO Daily April 16, 2024 12:00am May 09, 2024 8:51am vitamin e 100 unt oral capsule (8 sources) Start: 09-09-2021 End: 04-16-2024 take 1 capsule by mouth once daily Vitamin E 100 unit Capsule Discontinued 1 CAP PO Daily September 09, 2021 1:00am April 16, 2024 10:10am Start: 09-09-2021 take 1 capsule by mouth once d aily Vitamin E Active 1 CAP PO Daily September 09, 2021 1:00am Vitamins A,C,R-Bcbj-Mcjfzp (Preservision Areds) 14,320-226-200 gajq-vh-wsfb Capsule (8 sources) Start: 09-09-2021 End: 04-16-2024 take 2 capsules by mouth once daily Vitamins A,C,U-Wxkd-Yglcjf (Preservision Areds) 14,320-226-200 wzmd-cp-abiq Capsule Discontinued 2 CAP PO Daily September 09, 2021 12:00am April 16, 2024 9:10am Start: 09-09-2021 End: 04-16-2024 take 2 capsules by mouth once daily Vitamins A,C,Q-Rvsl-Sakvpi (Preservision Areds) 14,320-226-200 wlxg-np-byog Capsule Discontinued 2 CAP PO Daily September 09, 2021 1:00am April 16, 2024 10:10am Start: 09-09-2021 take 2 capsules by m outh once daily Vitamins A,C,E-Zwtp-[id number] ([facility]) [phone] [id number] Capsule Active 2 CAP PO Daily September 09, 2021 1:00am Problems Active Problems Problem Classification Problem Date Documented Da te Episodic/Chronic Acquired foot deformities (20 sources) Hammer toe; Translations: [Other hammer toe(s) (acquired), left foot] Onset: 3 Resolved: 3 01-19-2023 Chronic Acquired foot deformities (20 sources) Hammer toe; Translations: [Other hammer toe(s) (acquired), right foot] Onset: 3 Resolved: 3 01-19-2023 Chronic Administrative/social admission (2 sources) Patient encounter status; Translations: [Other specified counseling] 07-02-2024 Episodic Allergic reactions (20 sources) Atopic dermatitis; Translations: [Atopic dermatitis, unspecified] Onset: 3 02-02-2023 Chronic Cardiac dysrhythmias (20 sources) Cardiac arrhythmia, unspecified; 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] Onset: 1 02-02-2023 Chronic Conditions associated with dizziness or vertigo (1 source) Dizziness and giddiness; Translations: [DIZZINESS AND GIDDINESS] Onset: 2 Episodic Diabetes mellitus with complications (20 sources) Type 2 diabetes mellitus with hyperglycemia; Translations: [Disorder of nervous system due to diabetes mellitus] Onset: 2 Resolved: 3 01-19-2023 Chronic Disorders of lipid metabolism (20 sources) Mixed hyperlipidemia; Translations: [Mixed hyperlipidemia] Onset: 3 02-02-2023 Chronic Diverticulosis and diverticulitis (20 sources) Diverticulosis of large intestine without perforation or abscess without bleeding; Translations: [Diverticulosis of sigmoid colon] Onset: 1 Resolved: 3 02-02-2023 Chronic Esophageal disorders (20 sources) Gastroesophageal reflux disease; Translations: [Gastro-esophageal reflux disease without esophagitis] Onset: 3 02-02-2023 Chronic Essential hypertension (20 sources) Essential (primary) hypertension; Translations: [Benign essential hypertension] Onset: 2 Resolved: 3 02-02-2023 Chronic Genitourinary symptoms and ill-defined conditions (20 sources) Mixed urinary incontinence; Translations: [Mixed incontinence] Onset: 3 02-02-2023 Chronic Immunizations and screening for infectious disease (2 sources) Needs influenza immunization; Translations: [Encounter for immunization] 06-11-2024 Episodic Malaise and fatigue (1 source) Weakness; Translations: [WEAKNESS] Onset: 2 Episodic Miscellaneous mental health disorders (20 sources) Chronic insomnia; Translations: [Psychophysiologic insomnia] Onset: 3 02-02-2023 Chronic Mycoses (20 sources) Onychomycosis due to dermatophyte ; Translations: [Tinea unguium] Onset: 3 01-19-2023 Episodic Open wounds of extremities (2 sources) Tear of skin; Translations: [Laceration without foreign body, left lower leg, initial encounter] 07-02-2024 Episodic Osteoarthritis (20 sources) Osteoarthritis of knee; Translations: [Osteoarthritis of knee, unspecified] Onset: 3 Resolved: 3 02-02-2023 Chronic Osteoporosis (20 sources) Osteoporosis; Translations: [Age-related osteoporosis without current pathological fracture] Onset: 3 02-02-2023 Chronic Other aftercare (1 source) 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; Translations: [SHELTER USE ORAL HYPOGLYCEMIC DX] Onset: 2 Episodic Other aftercare (1 source) Other senior living (current) drug therapy; Translations: [OTH NET DEVELOPER CURRENT DRUG THERAPY] Onset: 2 Episodic Other connective tissue disease (5 sources) Pain in toe; Translations: [Pain in left toe(s)] 07-24-2024 Episodic Other ear and sense organ disorders (20 sources) Sensorineural hearing loss, bilateral; Translations: [Sensorineural hearing loss, bilateral] Onset: 3 02-02-2023 Chronic Other ear and sense organ disorders (2 sources) Bilateral tinnitus; Translations: [Tinnitus, bilateral] 07-02-2024 Episodic Other ear and sense organ disorders (2 sources) Impacted cerumen of bilateral ears; Translations: [Impacted cerumen, bilateral] 10-25-2024 Episodic Other eye disorders (20 sources) Hemorrhage of bilateral vitreous bodies; Translations: [Vitreous hemorrhage, bilateral] Onset: 4 07-02-2024 Chronic Other gastrointestinal disorders (20 sources) Irritable bowel syndrome characterized by constipation; Translations: [Irritable bowel syndrome with constipation] Onset: 3 04-16-2024 Chronic Other gastrointestinal disorders (11 sources) Irritable bowel syndrome with constipation; Translations: [Irritable bowel syndrome] 04-16-2024 Chronic Other gastrointestinal disorders (5 sources) Diarrhea; Translations: [Diarrhea, unspecified] 10-15-2024 Episodic Other gastrointestinal disorders (8 sources) Diarrhea, unspecified; Translations: [Diarrhea] Onset: 1 Resolved: 1 Episodic Other gastrointestinal disorders (4 sources) Change in bowel habit; Translations: [Other symptoms involving digestive system] Onset: 1 04-16-2024 Episodic Other gastrointestinal disorders (8 sources) History of rectal bleeding; Translations: [Personal history of other diseases of the digestive system] 12-13-2022 Episodic Comment on above: Problem List clean-u p per request of Phys. EHR Cmte Other gastrointestinal disorders (3 sources) Other fecal abnormalities; Translations: [Other symptoms involving digestive system] 04-16-2024 Episodic Other hereditary and degenerative nervous system conditions (20 sources) Restless legs; Translations: [Restless legs syndrome] Onset: 3 02-02-2023 Chronic Other inflammatory condition of skin (20 sources) Psoriasis; Translations: [Psoriasis, unspecified] Onset: 3 02-02-2023 Chronic Other nervous system disorders (20 sources) Walking disability; Translations: [Difficulty in walking, not elsewhere classified] Onset: 3 01-19-2023 Chronic Other nervous system disorders (20 sources) Entrapment of left ulnar nerve; Translations: [Lesion of ulnar nerve, left upper limb] Onset: 3 02-02-2023 Chronic Other non-traumatic joint disorders (2 sources) Pain in right shoulder; Translations: [Pain in joint, shoulder region] 12-05-2024 Episodic Other skin disorders (20 sources) Nail deformity; Translations: [Other nail disorders] Onset: 3 01-19-2023 Episodic Other upper respiratory disease (20 sources) Allergic rhinitis; Translations: [Other allergic rhinitis] Onset: 3 02-02-2023 Chronic Other upper respiratory infections (10 sources) Acute sinusitis; Translations: [Acute sinusitis, unspecified] 06-11-2024 Episodic Regional enteritis and ulcerative colitis (20 sources) Pseudopolyposis of colon; 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] Onset: 3 02-02-2023 Chronic Residual codes; unclassified (20 sources) Localized edema; Translations: [Localized edema] Onset: 3 01-19-2023 Episodic Retinal detachments; defects; vascular occlusion; and retinopathy (20 sources) Bilateral degeneration of macula; Translations: [Unspecified macular degeneration] Onset: 3 02-02-2023 Chronic Septicemia (except in labor) (1 source) Sepsis, unspecified organism; Translations: [SEPSIS UNSPECIFIED ORGANISM] Onset: 2 Episodic Spondylosis; intervertebral disc disorders; other back problems (20 sources) Bilateral inflammation of sacroiliac joint; Translations: [Sacroiliitis, not elsewhere classified] Onset: 3 02-02-2023 Chronic Syncope (1 source) Syncope and collapse; Translations: [SYNCOPE AND COLLAPSE] Onset: 2 Episodic Thyroid disorders (20 sources) Acquired hypothyroidism; Translations: [Hypothyroidism, unspecified] Onset: 3 02-02-2023 Chronic Unclassified (1 source) CONTACT W/AND (SUSP) EXPOS COVID-19; Translations: [CONTACT W/AND (SUSP) EXPOS COVID-19] Onset: 1 Urinary tract infections (5 sources) Urinary tract infection, site not specified; Translations: [Acute cystitis] Onset: 2 Episodic Past or Other Problems Problem Classification Problem Date Documented Date Episodic/Chronic Acquired foot deformities (20 sources) Metatarsophalangeal joint stiff; Translations: [Other deformities of toe(s) (acquired), right foot] Onset: 3 Resolved: 3 01-19-2023 Episodic Acquired foot deformities (20 sources) Metatarsophalangeal joint stiff; Translations: [Other deformities of toe(s) (acquired), left foot] Onset: 3 01-19-2023 Episodic Anal and rectal conditions (1 source) Rectal polyp; Translations: [RECTAL POLYP] Onset: 1 Episodic Calculus of urinary tract (20 sources) Kidney stone; Translations: [Calculus of kidney] Onset: 3 02-02-2023 Episodic Diabetes mellitus without complication (20 sources) Type 2 diabetes mellitus without complications; Translations: [Diabetes mellitus] Onset: 1 Resolved: 3 06-23-2023 Chronic Gastrointestinal hemorrhage (20 sources) Hemorrhage of anus and rectum; Translations: [Melena] Onset: 1 Resolved: 4 Episodic Genitourinary symptoms and ill-defined conditions (20 sources) Urgent desire to urinate; Translations: [Urgency of urination] Onset: 8 Resolved: 3 06-23-2023 Episodic Mood disorders (20 sources) Mood disorders Onset: 3 Resolved: 4 06-23-2023 Other acquired deformities (20 sources) Spondylolisthesis; Translations: [Spondylolisthesis, site unspecified] Onset: 3 02-02-2023 Episodic Other and unspecified benign neoplasm (1 source) Personal history of colonic polyps; Translations: [PERSONAL HISTORY OF COLONIC POLYPS] Onset: 1 Episodic Other and unspecified benign neoplasm (20 sources) Hyperplastic polyp of large intestine; Translations: [Polyp of colon] Onset: 3 02-02-2023 Episodic Other connective tissue disease (20 sources) Neuropathic pain; Translations: [Neuralgia and neuritis, unspecified] Onset: 3 01-19-2023 Episodic Other connective tissue disease (20 sources) Ganglion cyst; Translations: [Ganglion, unspecified site] Onset: 3 02-02-2023 Episodic Other connective tissue disease (20 sources) Peripheral neuralgia; Translations: [Neuralgia and neuritis, unspecified] Onset: 3 02-02-2023 Episodic Other connective tissue disease (20 sources) Unspecified rotator cuff tear or rupture of unspecified shoulder, not specified as traumatic; Translations: [Rotator cuff (capsule) sprain] Onset: 3 Resolved: 4 02-02-2023 Episodic Other diseases of kidney and ureters (20 sources) Cyst of kidney; Translations: [Cyst of kidney, acquired] Onset: 3 02-02-2023 Episodic Other ear and sense organ disorders (20 sources) Hearing loss of right ear; Translations: [Unspecified hearing loss, right ear] Onset: 3 Resolved: 3 06-23-2023 Chronic Other ear and sense organ disorders (20 sources) Tinnitus; Translations: [Tinnitus, unspecified ear] Onset: 3 02-02-2023 Episodic Other gastrointestinal disorders (20 sources) Incontinence of feces; Translations: [Full incontinence of feces] Onset: 8 02-02-2023 Episodic Other gastrointestinal disorders (2 sources) Full incontinence of feces; Translations: [FULL INCONTINENCE OF FECES] Onset: 1 Resolved: 1 Episodic Other gastrointestinal disorders (20 sources) Altered bowel function; Translations: [Change in bowel habit] Onset: 3 04-16-2024 Episodic Other gastrointestinal disorders (20 sources) Change in stool caliber; Translations: [Other fecal abnormalities] Onset: 4 Resolved: 4 04-16-2024 Episodic Other gastrointestinal disorders (20 sources) Chronic constipation; Translations: [Other constipation] Onset: 3 02-02-2023 Episodic Other injuries and conditions due to external causes (20 sources) At risk for falls ; Translations: [History of falling] Onset: 3 01-19-2023 Episodic Other nervous system disorders (20 sources) Impairment of balance; Translations: [Other abnormalities of gait and mobility] Onset: 3 01-19-2023 Episodic Other skin disorders (20 sources) Callosity; Translations: [Corns and callosities] Onset: 3 01-19-2023 Episodic Other skin disorders (20 sources) Disorder of foot; Translations: [Atrophic disorder of skin, unspecified] Onset: 3 01-19-2023 Episodic Other skin disorders (20 sources) Bilateral ingrowing nail of toe of feet; Translations: [Ingrowing nail] Onset: 3 Resolved: 4 01-19-2023 Episodic Other skin disorders (1 source) Ingrowing toenail; Translations: [Ingrowing nail] 04-20-2024 Episodic Pancreatic disorders (not diabetes) (20 sources) Cyst of pancreas; Translations: [Cyst of pancreas] Onset: 3 02-02-2023 Episodic Residual codes; unclassified (1 source) Acquired absence of both cervix and uterus; Translations: [ACQUIRED ABSENCE BOTH CERVIX AND UTERUS] Onset: 1 Episodic Residual codes; unclassified (1 source) Acquired absence of other specified parts of digestive tract; Translations: [ACQ ABSENCE OTH PART DIGESTV TRACT] Onset: 1 Episodic Residual codes; unclassified (20 sources) History of partial resection of colon; Translations: [Acquired absence of other specified parts of digestive tract] Onset: 3 02-02-2023 Episodic Spondylosis; intervertebral disc disorders; other back problems (20 sources) Degenerative lumbar spinal stenosis; Translations: [Spinal stenosis, lumbar region without neurogenic claudication] Onset: 3 Resolved: 3 02-02-2023 Episodic Varicose veins of lower extremity (20 sources) Venous varices; Translations: [Asymptomatic varicose veins of unspecified lower extremity] Onset: 3 01-19-2023 Episodic Results Test Name Value Interpretation Reference Range Facility CBC (INCLUDES DIFF/PLT)on Basophils (Bld) [#/Vol] 0.065 10*3/uL Normal 0-200 [facility] Comment on above: Performed By: #### 1 0231, [id number] #### [facility] [address] [place] [address], [address] [place] [phone] [employer] Superintendent: Ji Fung MD Basophils/100 WBC (Bld) 0.6 % Normal [facility] Comment on above: Performed By: #### 1 0231, 6399 #### [facility] [address] [place], [place] [address] , [address] [place] [phone] [employer] Superintendent: Ji Fung MD Eosinophils (Bld) [#/Vol] 0.076 10*3/uL Normal 15-500 [facility] Comment on above: Performed By: #### 1 0231, 6399 #### [facility] [place] [address] [employer] Superintendent: Ji Fung MD Eosinophils/100 WBC (Bld) 0.7 % Normal [facility] Comment on above: Performed By: #### 1 023, 6399 #### [facility] [place] [address] [employer] Superintendent: Ji Fung MD Erythrocyte distribution width (RBC) [Ratio] 15.6 % High 11.0-15.0 [facility] Comment on above: Performed By: #### 1 023, 6399 #### [facility] [place] [address] [employer] Superintendent: Ji Fung MD Hematocrit (Bld) [Volume fraction] 50.8 % High 35.0-45.0 [facility] Comment on above: Performed By: #### 1 023, 6399 #### [facility] [place] [address] [employer] Superintendent: Ji Fung MD Hemoglobin (Bld) [Mass/Vol] 16.2 g/dL High 11.7-15.5 [facility] Comment on above: Performed By: #### 1 230, 6399 #### [facility] [place] [address] [employer] Superintendent: Ji Fung MD Lymphocytes (Bld) [#/Vol] 2.441 10*3/uL Normal 850-3900 [facility] Comment on above: Performed By: #### 1 023, 6399 #### [facility] [place] [address] [employer] Superintendent: Ji Fung MD Lymphocytes/100 WBC (Bld) 22.6 % Normal [facility] Comment on above: Performed By: #### 1 023, 6399 #### [facility] [place] [address] [employer] Superintendent: Ji Fung MD MCH (RBC) [Entitic mass] 29.3 pg Normal 27.0-33.0 [facility] Comment on above: Performed By: #### 1 230, 6399 #### [facility] [place] [address] [employer] Superintendent: Ji Fung MD MCHC (RBC) [Mass/Vol] 31.9 g/dL Low 32.0-36.[address] [facility] Comment on above: Result Comment: For adults, a slight decrease in the calculated MCHC value (in the range of 30 to 32 g/dL) is most likely not clinically significant; however, it should be interpreted with caution in correlation with other red cell parameters and the patient's clinical condition. Performed By: #### 1 230, 6399 #### [facility] [place] [address] [employer] Superintendent: Ji Fung MD MCV (RBC) [Entitic vol] 91.9 fL Normal 80.0-100.0 [facility] Comment on above: Performed By: #### 1 230, 6399 #### [facility] [place] [address] [employer] Superintendent: Ji Fung MD Monocytes (Bld) [#/Vol] 0.68 10*3/uL Normal 200-950 [facility] Comment on above: Performed By: #### 1 230, 6399 #### [facility] [place] [address] [employer] Superintendent: Ji Fung MD Monocytes/100 WBC (Bld) 6.3 % Normal [facility] Comment on above: Performed By: #### 1 230, 6399 #### [facility] [place] [address] [employer] Superintendent: Ji Fung MD Neutrophils (Bld) [#/Vol] 7.538 10*3/uL Normal 7474-1220 [facility] Comment on above: Performed By: #### 1 0231, 6399 #### [facility] [place] [address] [employer] Superintendent: Ji Fung MD Neutrophils/100 WBC (Bld) 69.8 % Normal [facility] Comment on above: Performed By: #### 1 0231, 6399 #### [facility] of [address], [address] [place] [address] [employer] Superintendent: Ji Fung MD Platelet mean volume (Bld) [Entitic vol] 10.6 fL Normal 7.5-12.5 [facility] Comment on above: Performed By: #### 1 0231, 6399 #### [facility] of [address], [address] [place] [address] [employer] Superintendent: Ji Fung MD Platelets (Bld) [#/Vol] 222 10*3/uL Normal 140-400 [facility] Comment on above: Performed By: #### 1 0231, 6399 #### [facility] of [address], [address] [place] [address] [employer] Superintendent: Ji Fung MD RBC (Bld) [#/Vol] 5.53 10*6/uL High 3.80-5.10 [facility] Comment on above: Performed By: #### 1 0231, 6399 #### [facility] [place] [address] [employer] Superintendent: Ji Fung MD WBC (Bld) [#/Vol] 10.8 10*3/uL Normal 3.8-10.8 [facility] Comment on above: Performed By: #### 1 0231, 6399 #### [facility] [place] [address] [employer] Superintendent: Ji Fung MD COMPREHENSIVE METABOLIC PANE [facility] 02-05-2025 Albumin [Mass/Vol] 4.5 g/dL Normal 3.6-5.1 [facility] Comment on above: Order Comment: FASTI NG:NO FASTING: NO Performed By: #### 1 0231, 6399 #### [facility] [place] [address] [employer] Superintendent: Ji Fung MD Albumin/Globulin [Mass ratio] 1.9 {ratio} Normal 1.0-2.5 [facility] Comment on above: Order Comment: FASTI NG:NO FASTING: NO Performed By: #### 1 0231, 6399 #### [facility] of [address], [address] [place] [address] [employer] Superintendent: Ji Fung MD ALP [Catalytic activity/Vol] 55 U/L Normal 37-153 [facility] Comment on above: Order Comment: FASTI NG:NO FASTING: NO Performed By: #### 1 0231, 6399 #### [facility] [place] [address] [employer] Superintendent: Ji Fung MD ALT [Catalytic activity/Vol] 19 U/L Normal 6-29 [facility] Comment on above: Order Comment: FASTI NG:NO FASTING: NO Performed By: #### 1 0231, 6399 #### [facility] [place] [address] [employer] Superintendent: Ji Fung MD AST [Catalytic activity/Vol] 16 U/L Normal 10-35 [facility] Comment on above: Order Comment: FASTI NG:NO FASTING: NO Performed By: #### 1 0231, 6399 #### [facility] [place] [address] [employer] Superintendent: Ji Fung MD Bilirubin [Mass/Vol] 0.5 mg/dL Normal 0.2-1.2 [facility] Comment on above: Order Comment: FASTI NG:NO FASTING: NO Performed By: #### 1 0231, 6399 #### [facility] [place] [address] [employer] Superintendent: Ji Fung MD BUN/CREATININE RATIO SEE NOTE: Normal 6-22 [facility] Comment on above: Order Comment: FASTI NG:NO FASTING: NO Result Comment: Not Reported: BUN and Creatinine are within reference range. Performed By: #### 1 0231, 6399 #### [facility] [address], [address] [place] [address] [employer] Superintendent: Ji Fung MD Calcium [Mass/Vol] 9.4 mg/dL Normal 8.6-10.4 [facility] Comment on above: Order Comment: FASTI NG:NO FASTING: NO Performed By: #### 1 0231, 6399 #### [facility] [address], [address] [place] [address] [employer] Superintendent: Ji Fung MD Chloride [Moles/Vol] 103 mmol/L Normal 98-110 [facility] Comment on above: Order Comment: FASTI NG:NO FASTING: NO Performed By: #### 1 0231, 6399 #### [facility] [address], [address] [place] [address] [employer] Superintendent: Ji Fung MD CO2 [Moles/Vol] 26 mmol/L Normal 20-32 [facility] Comment on above: Order Comment: FASTI NG:NO FASTING: NO Performed By: #### 1 0231, 6399 #### [facility] [place] [address] [employer] Superintendent: Ji Fung MD Creatinine [Mass/Vol] 0.71 mg/dL Normal 0.60-0.[address] [facility] [address] [facility] Comment on above: Order Comment: FASTI NG:NO FASTING: NO Performed By: #### 1 0231, 6399 #### [facility] [place] [address] [employer] Superintendent: Ji Fung MD GFR/1.73 sq M.predicted among non-blacks MDRD (S/P/Bld) [Vol rate/Area] 82 mL/min/{1.73_m2} Normal > OR = 60 [facility] Comment on above: Order Comment: FASTI NG:NO FASTING: NO Performed By: #### 1 0231, 6399 #### [facility] [address], [address] [place] [address] [employer] Superintendent: Ji Fung MD Globulin (S) [Mass/Vol] 2.4 g/dL Normal 1.9-3.7 [facility] Comment on above: Order Comment: FASTI NG:NO FASTING: NO Performed By: #### 1 0231, 6399 #### [facility] [address], [address] [place] [address] [employer] Superintendent: Ji Fung MD Glucose [Mass/Vol] 175 mg/dL High 65-99 [facility] Comment on above: Order Comment: FASTI NG:NO FASTING: NO Result Comment: Fasting reference interval For someone without known diabetes, a glucose value >125 mg/dL indicates that they may have diabetes and this should be confirmed with a follow-up test. Performed By: #### 1 0231, 6399 #### [facility] [address], [address] [place] [address] [employer] Superintendent: Ji Fung MD Potassium [Moles/Vol] 4.2 mmol/L Normal 3.5-5.[address] [facility] Comment on above: Order Comment: FASTI NG:NO FASTING: NO Performed By: #### 1 0231, 6399 #### [facility] [address], [address] [place] [address] [employer] Superintendent: Ji Fung MD Protein [Mass/Vol] 6.9 g/dL Normal 6.1-8.1 [facility] Comment on above: Order Comment: FASTI NG:NO FASTING: NO Performed By: #### 1 0231, 6399 #### [facility] [address], [address] [place] [address] [employer] Superintendent: Ji Fung MD Sodium [Moles/Vol] 140 mmol/L Normal 135-146 [facility] Comment on above: Order Comment: FASTI NG:NO FASTING: NO Performed By: #### 1 0231, 6399 #### [facility] [address], [address] [place] [address] [employer] Superintendent: Ji Fung MD Urea nitrogen [Mass/Vol] 15 mg/dL Normal 7-25 [facility] Comment on above: Order Comment: FASTI NG:NO FASTING: NO Performed By: #### 1 0231, 6399 #### [facility] [address] [place] [address], [address] [place] [phone] [employer] Superintendent: Ji Fung MD TSHon 02-05-2025 TSH Qn 1.18 m[IU]/L Normal 0.40-4.50 [facility] Comment on above: Performed By: #### 1 0231, 6399 #### [facility] [address] [place] [address], [address] [place] [phone] [employer] Superintendent: Ji Fung MD HbA1c (Bld) [Mass fraction]o n 02-04-2025 Interpretation and review of laboratory results Abnormal [facility] - Hematology and Cell countson 02-04-2025 HbA1c (Bld) [Mass fraction] 7.9 % [facility] Urinalysis macro (dipstick) panel (U)on 02-04-2025 Bilirubin, UA Negative Negative - 4(70) +++ mg/dL [facility] Blood, UA Negative Negative - 50 Tony/mcL [facility] Clarity, UA Clear [facility] Color, UA Yellow [facility] Glucose, UA Negative Negative - 1999(110) ++++ mg/dL [facility] Interpretation and review of laboratory results Normal [facility] Ketones, UA Negative Negative - 160(16) ++++ mg/dL [facility] Leukocytes, UA Negative Negative - 500+++ Kristopher/mcL [facility] Nitrite, UA Negative Negative - Positive [facility] pH, UA 5 5 - 9 [facility] Protein, UA Negative Negative - 1999(20) ++++ mg/dL [facility] Spec Grav, UA 1 1 - 1.03 [facility] Urobilinogen, UA 0.2 0.2 - 12 mg/dL [facility] XR Shoulder - right 2 Viewso n 12-06-2024 Imaging Result: Right Shoulder AP and Scap Y No acute fracture or dislocation Bone Structures clavicle and scapula and humeral head appear osteopenic with superior migration of humeral head, Multiple rotator cuff anchors noted within the humeral head. Severe Glenohumeral joint arthritis with flattening of articular surface. Soft tissues and limited visualized lung owens unremarkable, suspect mild joint effusion Impression: Severe right shoulder arthritis with likely rotator cuff arthropathy. [facility] Radiology Study observation (narrative) [facility] Laboratory - Hematology and Cell countson 11-29-2024 HbA1c (Bld) [Mass fraction] 7.3 % [facility] No Panel Informationon 11-29 [facility] Basophils Auto (Bld) [#/Vol] Ordered By: Nayan Dominguez on 10-15-2024 Basophils (Bld) [#/Vol] Automated basophil count 0.0-0.2 [facility] Basophils/100 WBC Auto (Bld) Ordered By: Nayan Dominguez on 10-15-2024 Basophils/100 WBC (Bld) Automated basophil % . [facility] Complete Blood Count Auto Di ffon 10-15-2024 Basophils (Bld) [#/Vol] 0.1 10*3/uL Normal 0.0-0.2 [facility] Comment on above: Result Comment: PERF ORMED BY: [place] [address] PATHOLOGIST USER SUPPORT ANALYST SUPERVISOR BEATRIZ GILLESPIE M.D. Performed By: #### C BC #### [address] Basophils/100 WBC (Bld) 0.3 % Normal . Tanvi conde [facility] Comment on above: Performed By: #### C BC #### [place] [address] [place] Eosinophils (Bld) [#/Vol] 0.1 10*3/uL Normal 0.0-0.45 [facility] Comment on above: Performed By: #### C BC #### [place] [address] [place] Eosinophils/100 WBC (Bld) 0.5 % Normal . [facility] Comment on above: Performed By: #### C BC #### [address] Erythrocyte distribution width (RBC) [Ratio] 15.1 % Normal 11.9-15.3 [facility] Comment on above: Performed By: #### C BC #### [address] Hematocrit (Bld) [Volume fraction] 45.9 % Normal 34.0-46.4 [facility] Comment on above: Performed By: #### C BC #### [address] Hemoglobin (Bld) [Mass/Vol] 15.3 g/dL Normal 11.8-15.4 [facility] Comment on above: Performed By: #### C BC #### [address] Lymphocytes (Bld) [#/Vol] 2.3 10*3/uL Normal 1.00-4.8 [facility] Comment on above: Performed By: #### C BC #### [address] Lymphocytes/100 WBC (Bld) 15.4 % Normal . [facility] Comment on above: Performed By: #### C BC #### [address] MCH (RBC) [Entitic mass] 28.9 pg Normal 24.7-34.3 [facility] Comment on above: Performed By: #### C BC #### [address] MCV (RBC) [Entitic vol] 86.5 fL Normal 80-100 T [facility] Comment on above: Performed By: #### C BC #### [address] Mean Corpuscular HGB Conc 33.4 g/dL Normal 32.0-35.0 [facility] Comment on above: Performed By: #### C BC #### [address] Monocytes (Bld) [#/Vol] 0.9 10*3/uL High 0.0-0.8 [facility] Comment on above: Performed By: #### C BC #### [place] [address] [place] Monocytes/100 WBC (Bld) 6.2 % Normal . T he [facility] Comment on above: Performed By: #### C BC #### [address] Neutrophils (Bld) [#/Vol] 11.9 10*3/uL High 1.8-7.7 [facility] Comment on above: Performed By: #### C BC #### [address] Neutrophils/100 WBC (Bld) 77.6 % Normal . [facility] Comment on above: Performed By: #### C BC #### [address] NRBC% 0.1 /100{WBC} Normal 0-0.5 [facility] Comment on above: Performed By: #### C BC #### [address] Platelet mean volume (Bld) [Entitic vol] 8.8 fL Normal 6.3-10.7 [facility] Comment on above: Performed By: #### C BC #### [address] Platelets (Bld) [#/Vol] 264 10*3/uL Normal 150-450 [facility] Comment on above: Performed By: #### C BC #### [place] [address] [place] RBC (Bld) [#/Vol] 5.31 10*6/uL High 3.60-5.00 [facility] Comment on above: Performed By: #### C BC #### [address] WBC (Bld) [#/Vol] 15.3 10*3/uL High 3.8-11.6 [facility] Comment on above: Performed By: #### C BC #### [address] [place] [address] [facility] Eosinophils Auto (Bld) [#/Vo l]Ordered By: Nayan Dominguez on 10-15-2024 Eosinophils (Bld) [#/Vol] Automated eosinophil count 0.0-0.45 [facility] Eosinophils/100 WBC Auto (Bl d)Ordered By: Nayan Dominguez on 10-15-2024 Eosinophils/100 WBC (Bld) Automated eosinophil % . [facility] Erythrocyte distribution wid th Auto (RBC) [Ratio]Ordered By: Nayan Dominguez on 10-15-2024 Erythrocyte distribution width (RBC) [Ratio] Erythrocyte distribution width [Ratio] by Automated count 11.9-15.3 [facility] Hematocrit Auto (Bld) [Volum e fraction]Ordered By: Nayan Dominguez on 10-15-2024 Hematocrit (Bld) [Volume fraction] Hematocrit [Volume Fraction] of Blood by Automated count 34.0-46.4 [facility] Hemoglobin [Mass/volume] in BloodOrdered By: Nayan Dominguez on 10-15-2024 Hemoglobin (Bld) [Mass/Vol] Hemoglobin [Mass/volume] in Blood 11.8-15.4 [facility] Leukocytes [#/volume] correc heidy for nucleated erythrocytes in Blood by Automated counOrdered By: Nayan Dominguez on 10-15-2024 WBC corrected for nucl RBC Auto (Bld) [#/Vol] Leukocytes [#/volume] corrected for nucleated erythrocytes in Blood by Automated coun High 3.8-11.6 [facility] Lymphocytes Auto (Bld) [#/Vo l]Ordered By: Nayan Dominguez on 10-15-2024 Lymphocytes (Bld) [#/Vol] Lymphocytes [#/volume] in Blood by Automated count 1.00-4.8 [facility] Lymphocytes/100 WBC Auto (Bl d)Ordered By: Nayan Dominguez on 10-15-2024 Lymphocytes/100 WBC (Bld) Lymphocytes/100 leukocytes in Blood by Automated count . [facility] MCH Auto (RBC) [Entitic mass ]Ordered By: Nayan Dominguez on 10-15-2024 MCH (RBC) [Entitic mass] MCH [Entitic mass] by Automated count 24.7-34.3 [facility] MCHC Auto (RBC) [Mass/Vol]Or dered By: Nayan Dominguez on 10-15-2024 MCHC (RBC) [Mass/Vol] MCHC [Mass/volume] by Automated count 32.0-35.0 [facility] MCV Auto (RBC) [Entitic vol] Ordered By: Nayan Dominguez on 10-15-2024 MCV (RBC) [Entitic vol] MCV [Entitic vol ume] by Automated count 80-100 [facility] Monocytes Auto (Bld) [#/Vol] Ordered By: Nayan Dominguez on 10-15-2024 Monocytes (Bld) [#/Vol] Automated blood monocyte count High 0.0-0.8 [facility] Monocytes/100 WBC Auto (Bld) Ordered By: Nayan Dominguez on 10-15-2024 Monocytes/100 WBC (Bld) Automated monocyte % . [facility] Neutrophils Auto (Bld) [#/Vo l]Ordered By: Nayan Dominguez on 10-15-2024 Neutrophils (Bld) [#/Vol] Neutrophils [#/volume] in Blood by Automated count High 1.8-7.7 [facility] Neutrophils/100 WBC Auto (Bl d)Ordered By: Nayan Dominguez on 10-15-2024 Neutrophils/100 WBC (Bld) Automated neutrophil % . [facility] Nucleated erythrocytes [Pres ence] in Blood by Automated countOrdered By: Nayan Dominguez on 10-15-2024 Nucleated RBC Auto Ql (Bld) Nucleated erythrocytes [Presence] in Blood by Automated count 0-0.5 [facility] Platelet mean volume Auto (B ld) [Entitic vol]Ordered By: Nayan Dominguez on 10-15-2024 Platelet mean volume (Bld) [Entitic vol] Platelet mean volume [Entitic volume] in Blood by Automated count 6.3-10.7 [facility] Platelets Auto (Bld) [#/Vol] Ordered By: Nayan Dominguez on 10-15-2024 Platelets (Bld) [#/Vol] Platelets [#/vol ume] in Blood by Automated count 150-450 [facility] RBC Auto (Bld) [#/Vol]Ordere d By: Nayan Dominguez on 10-15-2024 RBC (Bld) [#/Vol] Erythrocytes [#/volu me] in Blood by Automated count High 3.60-5.00 [facility] WBC Auto (Bld) [#/Vol]Ordere d By: Nayan Dominguez on 10-15-2024 WBC (Bld) [#/Vol] Leukocytes [#/volume ] in Blood by Automated count High 3.8-11.6 [facility] X-ray reportOrdered By: Tino Urrutia on 10-15-2024 Study report [facility] Main [place] [id number] XRay Report Signed Patient: Elizabeth Ramirez MR#: [id number] : 1935 Acct:[id number] Age/Sex: 89 / F ADM Date: 5 Loc: XD Room: Type: [facility] Attending Dr: Nayan Dominguez NET DEVELOPER Copies to: Nayan Dominguez APRN~ Ordering Provider: Nayan Dominguez APRN Date of Service: 10/15/24 XR/XR KUB: R19.7 - Diarrhea, unspecified KUB COMPARISON: None HISTORY: Diarrhea since colonoscopy. THORAX: Lung bases unremarkable. FREE AIR: Supine position limits assessment BOWEL: No gaseous intestinal distention. STOOL: No significant stool RENAL STONES: No significant stones present. VASCULAR CALCIFICATIONS: Unremarkable SOFT TISSUE: Unremarkable BONES: Unremarkable POSTSURGICAL CHANGES: Cervical spine fixation. Cholecystectomy XR/XR KUB IMPRESSION: No significant findings. Impression dictated by: Edgar Urrutia M.D.10/15/2024 7:20 PM Dictation Location: [place] [address] Transcribed By: [facility] 10/15/241919 Dictated By: Edgar Urrutia DO 10/15/241919 Signed By: 10/15/241919 [facility] XR KUBon 10-15-2024 XR KUB [facility] Main [address] [address] XRay Report Signed Patient: Elizabeth Ramirez MR#: [id number] 19 : 1935 Acct:[id number] Age/Sex: 89 / F ADM Date: 10/15/24 Loc: XD Room: Type: [facility] Attending Dr: Nayan Dominguez APRN Copies to: Nayan Dominguez APRN Ordering Provider: Nayan Dominguez APRN Date of Service: 10/15/24 XR/XR KUB: R19.7 - Diarrhea, unspecified KUB COMPARISON: None HISTORY: Diarrhea since colonoscopy. THORAX: Lung bases unremarkable. FREE AIR: Supine position limits assessment BOWEL: No gaseous intestinal distention. STOOL: No significant stool RENAL STONES: No significant stones present. VASCULAR CALCIFICATIONS: Unremarkable SOFT TISSUE: Unremarkable BONES: Unremarkable POSTSURGICAL CHANGES: Cervical spine fixation. Cholecystectomy XR/XR KUB IMPRESSION: No significant findings. Impression dictated by: Edgar Urrutia M.D.10/15/2024 7:20 PM Dictation [facility] Transcribed By: [facility] 10/15/241919 Dictated By: Edgar Urrutia DO 10/15/241919 Signed By: 10/15/241919 Normal [facility] Urinalysis macro (dipstick) panel (U)on 08-31-2024 Bilirubin, UA Negative Negative - 4(70) +++ mg/dL [facility] Blood, UA Negative Negative - 50 Tony/mcL [facility] Glucose, UA 3+ Negative - 2000(110) ++++ mg/dL [facility] Ketones, UA Negative Negative - 160(16) ++++ mg/dL [facility] Leukocytes, UA Negative Negative - 500+++ Kristopher/mcL [facility] Nitrite, UA Negative Negative - Positive [facility] pH, UA 6 5 - 9 [facility] Protein, UA Negative Negative - 2000(20) ++++ mg/dL [facility] Spec Grav, UA 1.005 1 - 1.03 [facility] Urobilinogen, UA 0.2 0.2 - 12 mg/dL [facility] Laboratory - Hematology and Cell countson 06-11-2024 HbA1c (Bld) [Mass fraction] 7.1 % [facility] No Panel Informationon 06-11 [facility] Capillary blood glucose alexander urement by glucometer (mass/volume)Ordered By: Sadiq Barton on 05-23-2024 Glucose [Mass/Vol] 170 mg/dL Normal [facility] Comment on above: Random Glucose Refer ence Range is dependent on time and content of last meal. Glucose of more than 200 mg/dL in a nonstressed, ambulatory subject supports the diagnosis of Diabetes Mellitus. Result Comment: [place] Glucose Reference Range is dependent on time and content of last meal. Glucose of more than 200 mg/dL in a nonstressed, ambulatory subject supports the diagnosis of Diabetes Mellitus. Performed By: #### G LULS #### Point of Care testing , Glucose Poct Glucometerson 0 05-23-2024 Commemt1 Glu2: Cleaned Meter Normal [facility] Comment on above: Result Comment: PERF ORMED BY: [facility] [address] [place] [address] PATHOLOGIST USER SUPPORT ANALYST SUPERVISOR DANIELLE HINDS M.D. Performed By: #### G LULS #### Point of Care testing , Stevan 05-23-2024 L Specimen: [id number] Received: 05/23/24 Status: SOUT Req Num: [id number] Spec Type: Surgical Subm Dr: Sadiq Barton MD Tissues: A Colon Biopsy (ASCENDING POLYP) Procedures: HE/2, Gross/Micro L4 Age/ Patient Sex Location Account Attending Physician Elizabeth Ramirez 88/F [id number] Sadiq Barton MD SPEC NUM: [id number] RECD: 05/23/24 STATUS: SOUT REQ NUM: [id number] MIESHA: 05/23/[address]: Sadiq Barton MD ENTERED: 05/23/[address] [facility] [address]: SPEC TYPE: Surgical DEPT: S ENTERED BY: [id number] RECV BY: [id number] ORDERED: HE/2, Gross/Micro L4 ORDERED: HE/2, Gross/Micro L4 Pathological Diagnosis Ascending colon polyp: Tubular adenoma. Clinical Information Rectal bleeding Gross Description The specimen is received in formalin with the patient's name and ascending polyp and consists of a single gamble portion of soft tissue measuring 0.6 cm in greatest dimension. The specimen is entirely submitted cassette A1. CPT Codes 88 305 Specimen: [id number] Received: 05/23/24 Status: ANTONINA Laurie Num: [id number] Spec Type: Surgical Subm Dr: Sadiq Barton MD Tissues: A Colon Biopsy (ASCENDING POLYP) Procedures: Rachel TENORIO/Leeanne L4 Patient: Elizabeth Ramirez [id number] (Continued) Signed (signature on file) Adrian Castorena MD 05/25/24 1027 Normal [facility] No Panel InformationOrdered By: Sadiq Barton on 05-23-2024 Bedside Glucose Comment Glu2: cleaned meter [facility] Activated partial thrombopla stin time (aPTT) in platelet poor plasma by coagulation aOrdered By: Fernando Diamond on 12-13-2022 aPTT Coag (PPP) [Time] 31.1 s 25.1-36.5 [facility] Basophils Auto (Bld) [#/Vol] Ordered By: Fernando Diamond on 12-13-2022 Basophils (Bld) [#/Vol] 0.1 10*3/uL 0.0-0.2 [facility] Basophils/100 WBC Auto (Bld) Ordered By: Fernando Diamond on 12-13-2022 Basophils/100 WBC (Bld) 0.9 % . [facility] Bilirubin Test strip Ql (U)O rdered By: Fernando Diamond on 12-13-2022 Bilirubin Ql (U) Negative Negative [facility] [place] [facility] Calcium [Mass/volume] in Ser um or PlasmaOrdered By: Fernando Diamond on 12-13-2022 Calcium [Mass/Vol] 8.8 mg/dL 8.6-10.3 [facility] Carbon dioxide, total [Moles /volume] in Serum or PlasmaOrdered By: Fernando Diamond on 12-13-2022 CO2 [Moles/Vol] 28.3 mmol/L 21.0-31.0 [facility] [place] [facility] Chloride [Moles/volume] in S perez or PlasmaOrdered By: Fernando Diamond on 12-13-2022 Chloride [Moles/Vol] 103 mmol/L 98-107 [facility] Color Auto (U)Ordered By: Andreea Diamond on 12-13-2022 Color (U) Yellow Yellow [facility] Creatinine [Mass/volume] in Serum or PlasmaOrdered By: Fernando Diamond on 12-13-2022 Creatinine [Mass/Vol] 0.77 mg/dL 0.60-1.20 [facility] Eosinophils Auto (Bld) [#/Vo l]Ordered By: Fernando Diamond on 12-13-2022 Eosinophils (Bld) [#/Vol] 0.0 10*3/uL 0.0-0.45 [facility] Eosinophils/100 WBC Auto (Bl d)Ordered By: Fernando Diamond on 12-13-2022 Eosinophils/100 WBC (Bld) 0.4 % . [facility] Erythrocyte distribution wid th Auto (RBC) [Ratio]Ordered By: Fernando Diamond on 12-13-2022 Erythrocyte distribution width (RBC) [Ratio] 15.3 % 11.9-15.3 [facility] Fecal occult blood detection by immunochemistryOrdered By: Frenando Diamond on 12-13-2022 Hemoglobin.gastrointest inal Ql (Stl) [facility] Glucose [Mass/volume] in Ser um or PlasmaOrdered By: Fernando Diamond on 12-13-2022 Glucose [Mass/Vol] 148 mg/dL 70-100 [facility] Comment on above: ADA recommended refe rence rangeRandom Glucose Reference Range is dependent on time and content of last meal. Glucose of more than 200 mg/dL in a nonstressed, ambulatory subject supports the diagnosis of Diabetes Mellitus. Hematocrit Auto (Bld) [Volum e fraction]Ordered By: Fernando Diamond on 12-13-2022 Hematocrit (Bld) [Volume fraction] 45.2 % 34.0-46.4 [facility] Hemoglobin [Mass/volume] in BloodOrdered By: Fernando Diamond on 12-13-2022 Hemoglobin (Bld) [Mass/Vol] 15.1 g/dL 11.8-15.4 [facility] Ketones Auto test strip (U) [Mass/Vol]Ordered By: Fernando Diamond on 12-13-2022 Ketones (U) [Mass/Vol] Negative Negative [facility] Laboratory - CoagulationOrde red By: Fernando Diamond on 12-13-2022 PT Coag (PPP) [Time] 11.4 s 9.0-12.9 [facility] Leukocytes [#/volume] correc heidy for nucleated erythrocytes in Blood by Automated counOrdered By: Fernando Diamond on 12-13-2022 WBC corrected for nucl RBC Auto (Bld) [#/Vol] 11.0 10*3/uL 3.8-11.6 [facility] Lymphocytes Auto (Bld) [#/Vo l]Ordered By: Fernando Diamond on 12-13-2022 Lymphocytes (Bld) [#/Vol] 2.0 10*3/uL 1.00-4.8 [facility] Lymphocytes/100 WBC Auto (Bl d)Ordered By: Fernando Diamond on 12-13-2022 Lymphocytes/100 WBC (Bld) 18.3 % . [facility] MCH Auto (RBC) [Entitic mass ]Ordered By: Fernando Diamond on 12-13-2022 MCH (RBC) [Entitic mass] 28.7 pg 24.7-34.3 [facility] MCHC Auto (RBC) [Mass/Vol]Or dered By: Fernando Diamond on 12-13-2022 MCHC (RBC) [Mass/Vol] 33.4 g/dL 32.0-35.0 [facility] MCV Auto (RBC) [Entitic vol] Ordered By: Fernando Diamond on 12-13-2022 MCV (RBC) [Entitic vol] 85.9 fL 80-100 [facility] Monocyte distribution width [Entitic volume] in Blood by AutomatedOrdered By: Fernando Diamond on 12-13-2022 Monocyte distribution width Auto (Bld) [Entitic vol] 17.04 % 0.00-20.00 [facility] Monocytes Auto (Bld) [#/Vol] Ordered By: Fernando Diamond on 12-13-2022 Monocytes (Bld) [#/Vol] 0.7 10*3/uL 0.0-0.8 [facility] Monocytes/100 WBC Auto (Bld) Ordered By: Fernando Diamond on 12-13-2022 Monocytes/100 WBC (Bld) 6.0 % . [facility] Neutrophils Auto (Bld) [#/Vo l]Ordered By: Fernando Diamond on 12-13-2022 Neutrophils (Bld) [#/Vol] 8.1 10*3/uL 1.8-7.7 [facility] Neutrophils/100 WBC Auto (Bl d)Ordered By: Fernando Diamond on 12-13-2022 Neutrophils/100 WBC (Bld) 74.4 % . [facility] Nitrite Test strip Ql (U)Ord ered By: Fernando Diamond on 12-13-2022 Nitrite Ql (U) Negative Negative [facility] No Panel InformationOrdered By: Fernando Diamond on 12-13-2022 Estimated GFR (CKD-EPI) > 60.0 mL/Min [facility] Creatinine Clearance (Chem 43.59 [facility] Nucleated erythrocytes [Pres ence] in Blood by Automated countOrdered By: Fernando Diamond on 12-13-2022 Nucleated RBC Auto Ql (Bld) 0.1 /100{WBC} 0-0.5 [facility] Platelet mean volume Auto (B ld) [Entitic vol]Ordered By: Fernando Diamond on 12-13-2022 Platelet mean volume (Bld) [Entitic vol] 8.6 fL 6.3-10.7 [facility] Platelet poor plasma interna tional normalized ratio (INR) by coagulation assay (relatOrdered By: Fernando Diamond on 12-13-2022 INR Coag (PPP) [Relative time] 1.0 {INR} [facility] Comment on above: INR Therapeutic Rang [...] 12-13-2022 Platelets (Bld) [#/Vol] 276 10*3/uL 150-450 [facility] Potassium [Moles/volume] in Serum or PlasmaOrdered By: Fernando Diamond on 12-13-2022 Potassium [Moles/Vol] 3.8 mmol/L 3.5-5.1 [facility] Protein Auto test strip (U) [Mass/Vol]Ordered By: Fernando Diamond on 12-13-2022 Protein (U) [Mass/Vol] Negative Negative [facility] RBC Auto (Bld) [#/Vol]Ordere d By: Fernando Diamond on 12-13-2022 RBC (Bld) [#/Vol] 5.26 10*6/uL 3.60-5.00 [facility] Serum or plasma anion gap de terminationOrdered By: Fernando Diamond on 12-13-2022 Anion gap [Moles/Vol] 12.5 mmol/L 6.0-15.0 [facility] Sodium [Moles/volume] in Ser um or PlasmaOrdered By: Fernando Diamond on 12-13-2022 Sodium [Moles/Vol] 140 mmol/L 136-145 [facility] Specific gravity Auto test s trip (U) [Rel density]Ordered By: Fernando Diamond on 12-13-2022 Specific gravity (U) [Rel density] 1.010 1.001-1.03 0 [facility] Urea nitrogen [Mass/volume] in Serum or PlasmaOrdered By: Fernando Diamond on 12-13-2022 Urea nitrogen [Mass/Vol] 17 mg/dL 7-25 [facility] Urine clarity by refractomet ry automatedOrdered By: Fernando Diamond on 12-13-2022 Clarity Refractometry automated (U) Clear Clear [facility] Urine glucose measurement by automated test strip (mass/volume)Ordered By: Fernando Diamond on 12-13-2022 Glucose Auto test strip (U) [Mass/Vol] Normal mg/dL Normal [facility] Urine hemoglobin detection b y automated test stripOrdered By: Fernando Diamond on 12-13-2022 Hemoglobin Auto test strip Ql (U) Negative Negative [facility] Urine leukocyte esterase det ection by automated test stripOrdered By: Fernando Diamond on 12-13-2022 Leukocyte esterase Auto test strip Ql (U) Negative Negative [facility] Urobilinogen Auto test strip (U) [Mass/Vol]Ordered By: Fernando Diamond on 12-13-2022 Urobilinogen (U) [Mass/Vol] Normal mg/dL Normal [facility] WBC Auto (Bld) [#/Vol]Ordere d By: Fernando Dimaond on 12-13-2022 WBC (Bld) [#/Vol] 11.0 10*3/uL 3.8-11.6 [facility] pH Auto test strip (U)Ordere d By: Fernando Diamond on 12-13-2022 pH (U) 7.5 [pH] 5.0-9.0 [facility] CBC AUTO DIFFon 05-01-2022 BASO # 0.0 103/ul Normal 0.0-0.1 [facility] Comment on above: Performed By: #### C BC #### [facility] [address] [address] [address] Graeme Webster Basophils/100 WBC (Bld) 0.3 % Normal 0.2-2.0 [facility] Comment on above: Performed By: #### C BC #### [facility] [address] [place] [address] [address] Graeme Webster EO # 0.3 103/ul Normal 0.0-0.7 [facility] Comment on above: Performed By: #### C BC #### [facility] [address] [place] [address] [address] Graeme Webster Eosinophils/100 WBC (Bld) 2.5 % Normal 0.9-7.0 [facility] Comment on above: Performed By: #### C BC #### [facility] [address] [place] [address] Dr. Graeme Webster Erythrocyte distribution width (RBC) [Ratio] 15.2 % Critically high 11.0-15.0 [facility] Comment on above: Performed By: #### C BC #### [facility] [address] [place] [address] [address] Graeme Webster Hematocrit (Bld) [Volume fraction] 34.9 % Critically low 36.0-48.0 [facility] Comment on above: Performed By: #### C BC #### [facility] [address] [place] [address] Dr. Graeme Webster Hemoglobin (Bld) [Mass/Vol] 11.1 g/dL Critically low 12.0-16.0 [facility] Comment on above: Performed By: #### C BC #### [facility] [address] [place] [address] Dr. Graeme Webster IG # 0.05 10e3/ul Critically high 0.00-0.03 [facility] Comment on above: Performed By: #### C BC #### [facility] [address] [address] [address] Graeme Webster IG % 0.5 % Normal 0.0-0.5 [facility] Comment on above: Performed By: #### C BC #### [facility] [address] [address] [address] Graeme Webster LYMPH # 1.1 103/ul Critically low 1.2-3.8 [facility] Comment on above: Performed By: #### C BC #### [facility] [address] [address] [address] Graeme Webster Lymphocytes/100 WBC (Bld) 10.1 % Critically low 20.5-60.0 [facility] Comment on above: Performed By: #### C BC #### [facility] [address] [place] [address] Dr. Graeme Webster MANUAL DIFF REQ NO Normal [facility] Comment on above: Performed By: #### C BC #### [facility] [address] [place] [address] Dr. Graeme Webster MCH (RBC) [Entitic mass] 28.0 pg Normal 26.7-34.0 [facility] Comment on above: Performed By: #### C BC #### [facility] [address] [place] [address] Dr. Graeme Webster MCHC (RBC) [Mass/Vol] 31.8 g/dL Normal 29.9-35.2 [facility] Comment on above: Performed By: #### C BC #### [facility] [address] [place] [address] Dr. Graeme Webster MCV (RBC) [Entitic vol] 87.9 fL Normal 81.0-99.0 [facility] Comment on above: Performed By: #### C BC #### [facility] [address] [place] [address] Dr. Graeme Webster MONO # 0.4 103/ul Normal 0.3-0.8 [facility] Comment on above: Performed By: #### C BC #### [facility] [address] [place] [address] Dr. Graeme Webster Monocytes/100 WBC (Bld) 3.8 % Normal 1.7-12.0 [facility] Comment on above: Performed By: #### C BC #### [facility] [address] [address] [address] Graeme Webster NEUT # 8.8 103/ul Critically high 1.4-6.5 [facility] Comment on above: Performed By: #### C BC #### [facility] [address] [place] [address] Dr. Graeme Webster Neutrophils/100 WBC (Bld) 82.8 % Critically high 43.0-75.0 [facility] Comment on above: Performed By: #### C BC #### [facility] [address] [place] [address] Dr. Graeme Webster Platelet mean volume (Bld) [Entitic vol] 10.9 fL Normal 9.5-13.5 [facility] Comment on above: Performed By: #### C BC #### [facility] [address] [address] [address] Graeme Webster PLT 171 103/ul Normal 150-450 [facility] Comment on above: Performed By: #### C BC #### [facility] [address] [place] [address] Dr. Graeme Webster RBC 3.97 106/ul Critically low 4.20-5.40 [facility] Comment on above: Performed By: #### C BC #### [facility] [address] [place] [address] Dr. Graeme Webster WBC 10.6 103/ul Normal 4.0-11.0 [facility] Comment on above: Performed By: #### C BC #### [facility] [address] [place] [address] Dr. Graeme Webster POINT OF CARE GLUCOSEon Glucose [Mass/Vol] 177 mg/dL Critically high 74-106 [facility] Comment on above: Performed By: #### C BC #### [facility] [address] [place] [address] Dr. Graeme Webster PROF 14(COMP METB)on 022 Albumin [Mass/Vol] 2.5 g/dL Critically low 3.4-5.0 [facility] Comment on above: Performed By: #### C BC #### [facility] [address] [address] [address] Graeme Webster Albumin/Globulin [Mass ratio] 0.8 {ratio} Normal [facility] Comment on above: Performed By: #### C BC #### [facility] [address] [address] [address] Graeme Webster ALP [Catalytic activity/Vol] 53 U/L Normal 46-116 [facility] Comment on above: Performed By: #### C BC #### [facility] [address] [place] [address] Dr. Graeme Webster ALT [Catalytic activity/Vol] 94 U/L Critically high 14-59 [facility] Comment on above: Performed By: #### C BC #### [facility] [address] [place] [address] Dr. Graeme Webster Anion gap [Moles/Vol] 12.4 mmol/L Normal [facility] Comment on above: Performed By: #### C BC #### [facility] [address] [place] [address] Dr. Graeme Webster AST [Catalytic activity/Vol] 56 U/L Critically high 15-37 [facility] Comment on above: Performed By: #### C BC #### [facility] [address] [place] [address] Dr. Graeme Webster Bilirubin [Mass/Vol] 0.4 mg/dL Normal 0.2-1.0 [facility] Comment on above: Performed By: #### C BC #### [facility] [address] [place] [address] Dr. Graeme Webster Calcium [Mass/Vol] 7.7 mg/dL Critically low 8.5-10.1 [facility] Comment on above: Performed By: #### C BC #### [facility] [address] [place] [address] Dr. Graeme Webster Chloride [Moles/Vol] 109 mmol/L Critically high 98-107 [facility] Comment on above: Performed By: #### C BC #### [facility] [address] [place] [address] Dr. Graeme Webster CO2 [Moles/Vol] 23.2 mmol/L Normal 21.0-32.0 [facility] Comment on above: Performed By: #### C BC #### [facility] [address] [place] [address] Dr. Graeme Webster Creatinine [Mass/Vol] 0.81 mg/dL Normal 0.55-1.02 [facility] Comment on above: Performed By: #### C BC #### [facility] [address] [address] [address] Graeme Webster EGFR-AF BOTSWANAN >60 Normal >=60 [facility] Comment on above: Performed By: #### C BC #### [facility] [address] [place] [address] Dr. Graeme Webster EGFR-NON AF BOTSWANAN >60 Normal >=60 [facility] Comment on above: Performed By: #### C BC #### [facility] [address] [place] [address] Dr. Graeme Webster Globulin (S) [Mass/Vol] 3.2 g/dL Normal [facility] Comment on above: Performed By: #### C BC #### [facility] [address] [place] [address] Dr. Graeme Webster Glucose [Mass/Vol] 168 mg/dL Critically high 74-106 [facility] Comment on above: Performed By: #### C BC #### [facility] [address] [place] [address] Dr. Graeme Webster Potassium [Moles/Vol] 3.6 mmol/L Normal 3.5-5.1 [facility] Comment on above: Performed By: #### C BC #### [facility] [address] [place] [address] Dr. Graeme Webster Protein [Mass/Vol] 5.7 g/dL Critically low 6.4-8.2 [facility] Comment on above: Performed By: #### C BC #### [facility] [address] [place] [address] Dr. Graeme Webster Sodium [Moles/Vol] 141 mmol/L Normal 136-145 [facility] Comment on above: Performed By: #### C BC #### [facility] [address] [address] [address] Graeme Webster Urea nitrogen [Mass/Vol] 16.0 mg/dL Normal 7.0-18.0 [facility] Comment on above: Performed By: #### C BC #### [facility] [address] [place] [address] Dr. Graeme Webster Urea nitrogen/Creatinine [Mass ratio] 19.8 mg/mg Normal [facility] Comment on above: Performed By: #### C BC #### [facility] [address] [place] [address] Dr. Graeme Webster BNPon 04-30-2022 Natriuretic peptide B (Bld) [Mass/Vol] 242.0 pg/mL Normal <=1,800.0 [facility] Comment on above: Performed By: #### C BC #### [facility] [address] [place] [address] Dr. Graeme Webster CARDIAC JORGE LUIS 3-6on 2 CK [Catalytic activity/Vol] 81 U/L Normal 26-192 [facility] Comment on above: Performed By: #### C BC #### [facility] [address] [place] [address] Dr. Graeme Webster CK.MB [Mass/Vol] 1.02 ng/mL Normal <=3.60 [facility] Comment on above: Performed By: #### C BC #### [facility] [address] [place] [address] Dr. Graeme Webster HSTROP 5.9 pg/mL Normal 4.0-51.3 [facility] Comment on above: Result Comment: CUT- OFF POINTS HAVE BEEN ESTABLISHED BASED ON THE FOURTH UNIVERSAL DEFINITIONS OF MYOCARDIAL INFARCTION. THE UPPER REFERENCE LIMIT (URL) OF TROPONIN, DEFINED THE 99TH PERCENTILE OF cTnI DISTRIBUTION IN A REFERENCE POPULATION, HAS BEEN CONFIRMED THE DECISION THRESHOLD FOR [place] DIAGNOSIS. Performed By: #### C BC #### [facility] [address] [place] [address] Dr. Graeme Webster CBC AUTO DIFFon 04-30-2022 BASO # 0.1 103/ul Normal 0.0-0.1 [facility] Comment on above: Performed By: #### C BC #### [facility] [address] [address] [address] Graeme Webster Basophils/100 WBC (Bld) 0.4 % Normal 0.2-2.0 [facility] Comment on above: Performed By: #### C BC #### [facility] [address] [place] [address] Dr. Graeme Webster EO # 0.0 103/ul Normal 0.0-0.7 [facility] Comment on above: Performed By: #### C BC #### [facility] [address] [place] [address] Dr. Graeme Webster Eosinophils/100 WBC (Bld) 0.1 % Critically low 0.9-7.0 [facility] Comment on above: Performed By: #### C BC #### [facility] [address] [place] [address] Dr. Graeme Webster Erythrocyte distribution width (RBC) [Ratio] 14.7 % Normal 11.0-15.0 [facility] Comment on above: Performed By: #### C BC #### [facility] [address] [place] [address] Dr. Graeme Webster Hematocrit (Bld) [Volume fraction] 44.6 % Normal 36.0-48.0 [facility] Comment on above: Performed By: #### C BC #### [facility] [address] [place] [address] Dr. Graeme Webster Hemoglobin (Bld) [Mass/Vol] 14.3 g/dL Normal 12.0-16.0 [facility] Comment on above: Performed By: #### C BC #### [facility] [address] [place] [address] Dr. Graeme Webster IG # 0.67 10e3/ul Critically high 0.00-0.03 [facility] Comment on above: Performed By: #### C BC #### [facility] [address] [place] [address] Dr. Graeme Webster IG % 2.8 % Critically high 0.0-0.5 [facility] Comment on above: Performed By: #### C BC #### [facility] [address] [place] [address] Dr. Graeme Webster LYMPH # 0.5 103/ul Critically low 1.2-3.8 [facility] Comment on above: Performed By: #### C BC #### [facility] [address] [place] [address] Dr. Graeme Webster Lymphocytes/100 WBC (Bld) 1.9 % Critically low 20.5-60.0 [facility] Comment on above: Performed By: #### C BC #### [facility] [address] [place] [address] Dr. Graeme Webster MANUAL DIFF REQ NO Normal [facility] Comment on above: Performed By: #### C BC #### [facility] [address] [place] [address] Dr. Graeme Webster MCH (RBC) [Entitic mass] 28.1 pg Normal 26.7-34.0 [facility] Comment on above: Performed By: #### C BC #### [facility] [address] [place] [address] Dr. Graeme Webster MCHC (RBC) [Mass/Vol] 32.1 g/dL Normal 29.9-35.2 [facility] Comment on above: Performed By: #### C BC #### [facility] [address] [place] [address] Dr. Graeme Webster MCV (RBC) [Entitic vol] 87.6 fL Normal 81.0-99.0 [facility] Comment on above: Performed By: #### C BC #### [facility] [address] [place] [address] Dr. Graeme Webster MONO # 0.7 103/ul Normal 0.3-0.8 [facility] Comment on above: Performed By: #### C BC #### [facility] [address] [place] [address] Dr. Graeme Webster Monocytes/100 WBC (Bld) 3.0 % Normal 1.7-12.0 [facility] Comment on above: Performed By: #### C BC #### [facility] [address] [place] [address] Dr. Graeme Webster NEUT # 21.7 103/ul Critically high 1.4-6.5 [facility] Comment on above: Performed By: #### C BC #### [facility] [address] [place] [address] Dr. Graeme Webster Neutrophils/100 WBC (Bld) 91.8 % Critically high 43.0-75.0 [facility] Comment on above: Performed By: #### C BC #### [facility] [address] [place] [address] Dr. Graeme Webster Platelet mean volume (Bld) [Entitic vol] 10.0 fL Normal 9.5-13.5 [facility] Comment on above: Performed By: #### C BC #### [facility] [address] [place] [address] Dr. Graeme Webster PLT 237 103/ul Normal 150-450 [facility] Comment on above: Performed By: #### C BC #### [facility] [address] [place] [address] Dr. Graeme Webster RBC 5.09 106/ul Normal 4.20-5.40 [facility] Comment on above: Performed By: #### C BC #### [facility] [address] [place] [address] Dr. Graeme Webster WBC 23.7 103/ul Critically high 4.0-11.0 [facility] Comment on above: Performed By: #### C BC #### [facility] [address] [place] [address] Dr. Graeme Webster CTA CHEST WO W [...] DANTE LAMAS Date: 2022-04-30 13:55 Normal [facility] CULTURE BLOODon 04-30-2022 Microscopic examination of blood, culture Culture Observations: NO GROWTH AT 5 DAYS. Normal [facility] Comment on above: Performed By: #### B [id number] #### [facility] [address] [place] [address] Dr. Graeme Webster Microscopic examination of blood, culture Culture Observations: NO GROWTH AT 5 DAYS. Normal [facility] Comment on above: Performed By: #### L ACT #### [facility] [address] [place] [address] Dr. Graeme Webster Covid-19 PCR ([facility])on SARS-CoV-2 (COVID-19) RNA ELVIA+probe Ql (Unsp spec) Not detected Normal NOT DETECTED [facility] Comment on above: Result Comment: When diagnostic [...] for this test is supported by the [place] of [employer] and Human Service's declaration that [...] used). Performed By: #### L ACT #### [facility] [address] [place] [address] Dr. Graeme Webster D-DIMERon 04-30-2022 D-DIMER 2.04 mg/L FEU Critically high <=0.59 [facility] Comment on above: Performed By: #### L ACT #### [facility] [address] [place] [address] Dr. Graeme Webster D-DIMER COMMENTS SEE BELOW Normal [facility] Comment on above: Result Comment: Incr eases [...] hospitalization. Performed By: #### L ACT #### [facility] [address] [place] [address] Dr. Graeme Webster ER URINE PROFILEon 2 Bilirubin Ql (U) Negative Normal NEGATIVE [facility] Comment on above: Performed By: #### L ACT #### [facility] [address] [place] [address] Dr. Graeme Webster Clarity (U) CLEAR Normal CLEAR [facility] Comment on above: Performed By: #### L ACT #### [facility] [address] [place] [address] Dr. Graeme Webster Color (U) YELLOW Normal YELLOW [facility] Comment on above: Performed By: #### L ACT #### [facility] [address] [place] [address] Dr. Graeme CARL A micrscopic examina tion will be performed if indicated. Normal [facility] Comment on above: Performed By: #### L ACT #### [facility] [address] [address] [address] Graeme Webster Glucose Ql (U) 100 mg/dl Abnormal NEGATIVE [facility] Comment on above: Performed By: #### L ACT #### [facility] [address] [address] [address] Graeme Webster Hemoglobin Ql (U) Negative Normal NEGATIVE [facility] Comment on above: Performed By: #### L ACT #### [facility] [address] [place] [address] Dr. Graeme Webster Ketones Ql (U) 15 mg/dl Abnormal NEGATIVE [facility] Comment on above: Performed By: #### L ACT #### [facility] [address] [place] [address] Dr. Graeme Webster LEUKOCYTES Negative Normal NEGATIVE [facility] Comment on above: Performed By: #### L ACT #### [facility] [address] [place] [address] Dr. Graeme Webster Nitrite Ql (U) Negative Normal NEGATIVE [facility] Comment on above: Performed By: #### L ACT #### [facility] [address] [address] [address] Graeme Webster pH (U) 6.5 [pH] Normal 5-9 [facility] Comment on above: Performed By: #### L ACT #### [facility] [address] [place] [address] Dr. Graeme Webster SPEC GRAVITY 1.010 Normal 1.005-<=1. 025 [facility] Comment on above: Performed By: #### L ACT #### [facility] [address] [place] [address] Dr. Graeme Webster UA PROTEIN Negative Normal NEGATIVE/ TRACE [facility] Comment on above: Performed By: #### L ACT #### [facility] [address] [address] [address] Graeme Webster UR MICRO IND NOT INDICATED Normal [facility] Comment on above: Performed By: #### L ACT #### [facility] [address] [address] [address] Graeme Webster Urobilinogen Qn (U) 0.2 {Anabella'U}/dL Normal 0.2 - 1. 0 [facility] Comment on above: Performed By: #### L ACT #### [facility] [address] [place] [address] Dr. Graeme Webster LACTATE/LACTIC ACIDon 2021 Lactate [Moles/Vol] 3.9 mmol/L Critically high 0.4-1.9 [facility] Comment on above: Result Comment: repe ated Performed By: #### C BC #### [facility] [address] [place] [address] Dr. Graeme Webster Lactate [Moles/Vol] 2.8 mmol/L Critically high 0.4-1.9 [facility] Comment on above: Performed By: #### L ACT #### [facility] [address] [place] [address] Dr. Graeme Webster Lactate [Moles/Vol] 4.9 mmol/L Critically high 0.4-1.9 [facility] Comment on above: Performed By: #### L ACT #### [facility] [address] [place] [address] Dr. Graeme Webster Lactate [Moles/Vol] 3.5 mmol/L Critically high 0.4-1.9 [facility] Comment on above: Performed By: #### L ACT #### [facility] [address] [place] [address] Dr. Graeme Webster POINT OF CARE GLUCOSEon Glucose [Mass/Vol] 214 mg/dL Critically high 74-106 [facility] Comment on above: Performed By: #### P OCGLUC #### [facility] [address] [place] [address] Dr. Graeme Webster Glucose [Mass/Vol] 112 mg/dL Critically high -106 [facility] Comment on above: Performed By: #### C BC #### [facility] [address] [place] [address] Dr. Graeme Webster Glucose [Mass/Vol] 311 mg/dL Critically high -106 [facility] Comment on above: Performed By: #### L ACT #### [facility] [address] [place] [address] Dr. Graeme Webster Glucose [Mass/Vol] 199 mg/dL Critically high [facility]106 [facility] Comment on above: Performed By: #### C BC #### [facility] [address] [place] [address] Dr. Graeme Webster PROF 14(COMP METB)on 022 Albumin [Mass/Vol] 3.5 g/dL Normal 3.4-5.0 [facility] Comment on above: Performed By: #### C BC #### [facility] [address] [place] [address] Dr. Graeme Webster Albumin/Globulin [Mass ratio] 1.0 {ratio} Normal [facility] Comment on above: Performed By: #### C BC #### [facility] [address] [place] [address] Dr. Graeme Webster ALP [Catalytic activity/Vol] 62 U/L Normal 46-116 [facility] Comment on above: Performed By: #### C BC #### [facility] [address] [place] [address] Dr. Graeme Webster ALT [Catalytic activity/Vol] 15 U/L Normal 14-59 [facility] Comment on above: Performed By: #### C BC #### [facility] [address] [place] [address] Dr. Graeme Webster Anion gap [Moles/Vol] 14.7 mmol/L Normal [facility] Comment on above: Performed By: #### C BC #### [facility] [address] [place] [address] Dr. Graeme Webster AST [Catalytic activity/Vol] 11 U/L Critically low 15-37 [facility] Comment on above: Performed By: #### C BC #### [facility] [address] [address] [address] Graeme Webster Bilirubin [Mass/Vol] 0.9 mg/dL Normal 0.2-1.0 [facility] Comment on above: Performed By: #### C BC #### [facility] [address] [address] [address] Graeme Webster Calcium [Mass/Vol] 8.5 mg/dL Normal 8.5-10.1 [facility] Comment on above: Performed By: #### C BC #### [facility] [address] [address] [address] Graeme Webster Chloride [Moles/Vol] 101 mmol/L Normal 98-107 [facility] Comment on above: Performed By: #### C BC #### [facility] [address] [address] [address] Graeme Webster CO2 [Moles/Vol] 24.9 mmol/L Normal 21.0-32.0 [facility] Comment on above: Performed By: #### C BC #### [facility] [address] [address] [address] Graeme Webster Creatinine [Mass/Vol] 1.02 mg/dL Normal 0.55-1.02 [facility] Comment on above: Performed By: #### C BC #### [facility] [address] [address] [address] Graeme Webster EGFR-AF BOTSWANAN >60 Normal >=60 [facility] Comment on above: Performed By: #### C BC #### [facility] [address] [address] [address] Graeme Webster EGFR-NON AF BOTSWANAN 52 mL/min/1.73m2 Critically low >=60 [facility] Comment on above: Performed By: #### C BC #### [facility] [address] [place] [address] Dr. Graeme Webster Globulin (S) [Mass/Vol] 3.5 g/dL Normal [facility] Comment on above: Performed By: #### C BC #### [facility] [address] [address] [address] Graeme Webster Glucose [Mass/Vol] 274 mg/dL Critically high 74-106 [facility] Comment on above: Performed By: #### C BC #### [facility] [address] [address] [address] Graeme Webster Potassium [Moles/Vol] 3.6 mmol/L Normal 3.5-5.1 [facility] Comment on above: Performed By: #### C BC #### [facility] [address] [address] [address] Graeme Webster Protein [Mass/Vol] 7.0 g/dL Normal 6.4-8.2 [facility] Comment on above: Performed By: #### C BC #### [facility] [address] [address] [address] Graeme Webster Sodium [Moles/Vol] 137 mmol/L Normal 136-145 [facility] Comment on above: Performed By: #### C BC #### [facility] [address] [address] [address] Graeme Webster Urea nitrogen [Mass/Vol] 14.0 mg/dL Normal 7.0-18.0 [facility] Comment on above: Performed By: #### C BC #### [facility] [address] [address] [address] Graeme Webster Urea nitrogen/Creatinine [Mass ratio] 13.7 mg/mg Normal [facility] Comment on above: Performed By: #### C BC #### [facility] [address] [address] [address] Graeme Webster TROPONIN, HIGH SENSITIVITYon 04-30-2022 HSTROP 7.4 pg/mL Normal 4.0-51.3 [facility] Comment on above: Result Comment: CUT- OFF POINTS HAVE BEEN ESTABLISHED BASED ON THE FOURTH UNIVERSAL DEFINITIONS OF MYOCARDIAL INFARCTION. THE UPPER REFERENCE LIMIT (URL) OF TROPONIN, DEFINED THE 99TH PERCENTILE OF cTnI DISTRIBUTION IN A REFERENCE POPULATION, HAS BEEN CONFIRMED THE DECISION THRESHOLD FOR [place] DIAGNOSIS. Performed By: #### C #### [facility] [address], [place] [address] Dr. Graeme Webster US KIDNEYSon 04-30-2022 US [...] by: TREVOR RODRIGUEZ Date: 2022-04-30 16:47 Normal [facility] XR CHEST 1 Von 04-30-2022 XR CHEST 1 V EXAM: XR CHEST 1 V HISTORY: COUGH COMPARISON: None. TECHNIQUE: One view of the chest was obtained. FINDINGS: The cardiac silhouette is normal in size. Aortic atherosclerotic disease is seen. The lungs are clear. There is no significant pneumothorax or pleural effusion. No acute osseous abnormality is seen. Ethel screws are seen within the right humeral head. IMPRESSION: 1. No acute cardiopulmonary abnormality. Electronically authenticated by: Abad RUTLEDGE Date: 2022-04-30 04:04 Normal [facility] Q - CULTURE,URINE,ROUTINEon 01-14-2022 CULTURE, URINE, ROUTINE SEE NOTE Abnormal N robbie [place] [employer] Comment on above: Order Comment: [facility] Testing performed at: QPT, [facility], [address] [facility], [address] [place] [address], [id number], Web Content Editor: Ji Fung MD [facility] Collection Date/Time: [id number] [facility] Results Received Date/Time: [id number] [facility] Reported Date/Time: Result Comment: CULT URE, URINE, ROUTINE Micro Number: [id number] Test Status: Final Specimen Source: Urine Specimen [...] #### 6 [id number] #### [facility] Default [address] [place] [id number] LACTOFERRIN FECAL QUANTon Lactoferrin, Fecal, Quant. <1.00 Normal 0.00-7.24 [facility] Comment on above: Result Comment: Re sults [...] (IBS). Performed By: #### C BC #### [facility] [address] [place] [address] Dr. Graeme Webster PANCREATIC ELASTASE FECALon 10-23-2021 Pancreatic Elastase, Fecal 172 ug Elast./g Critically low >200 [facility] Comment on above: Result Comment: Milagros re Pancreatic Insufficiency: <100 Moderate Pancreatic Insufficiency: 100 - 200 Normal: >200 Performed By: #### C BC #### [facility] [address] [place] [address] Dr. Graeme Webster PH, STOOLon 10-23-2021 pH, Stool 6.5 Critically low 7.0-7.5 [facility] Comment on above: Performed By: #### C BC #### [facility] [address] [address] [address] Graeme Webster CLOSTRIDIUM DIFFICILE PCRon 08-29-2021 C difficile Toxin Gene ELVIA Negative Normal Negative [facility] Comment on above: Performed By: #### C BC #### [facility] [address] [address] [address] Graeme Webster CULTURE STOOLon 08-26-2021 CULTURE STOOL Culture Observations : NO GROWTH SALMONELLA, SHIGELLA, YERSINIA, CAMPY, E.COLI 0157, OR STAPH AT 72 HRS Normal [facility] Comment on above: Performed By: #### S TOOLCX #### [facility] [address] [place] [address] Dr. Graeme Webster Patient Correspondenceon Patient Correspondence [id number]:12 7 Normal [facility] Ambulatory Clinical Summaryo n 05-29-2021 Ambulatory Clinical Summary {[id number] Normal [facility] General Surgery Office/Clini c Noteon 05-29-2021 General [...] SARS-CoV-2 (COVID-19) mRNA-1273 vaccine 09/20/2020 Recorded Normal [facility] Comment on above: Result Comment: Elec tronically Signed By: NARENDRA CAMPO, Jessica Figueroa\Date and Time Signed: 05/29/21 10:50 EDT CBC AUTO DIFFon 05-28-2021 BASO # 0.1 103/ul Normal 0.0-0.1 [facility] Comment on above: Performed By: #### C BC #### [facility] [address] [place] [address] Dr. Graeme Webster Basophils/100 WBC (Bld) 0.8 % Normal 0.2-2.0 [facility] Comment on above: Performed By: #### C BC #### [facility] [address] [place] [address] Dr. Graeme Webster EO # 0.1 103/ul Normal 0.0-0.7 [facility] Comment on above: Performed By: #### C BC #### [facility] [address] [place] [address] Dr. Graeme Webster Eosinophils/100 WBC (Bld) 0.8 % Critically low 0.9-7.0 [facility] Comment on above: Performed By: #### C BC #### [facility] [address] [place] [address] Dr. Graeme Webster Erythrocyte distribution width (RBC) [Ratio] 14.6 % Normal 11.0-15.0 [facility] Comment on above: Performed By: #### C BC #### [facility] [address] [place] [address] Dr. Graeme Webster Hematocrit (Bld) [Volume fraction] 39.0 % Normal 36.0-48.0 [facility] Comment on above: Performed By: #### C BC #### [facility] [address] [place] [address] Dr. Graeme Webster Hemoglobin (Bld) [Mass/Vol] 12.6 g/dL Normal 12.0-16.0 [facility] Comment on above: Performed By: #### C BC #### [facility] [address] [place] [address] Dr. Graeme Webster IG # 0.08 10e3/ul Critically high 0.00-0.03 [facility] Comment on above: Performed By: #### C BC #### [facility] [address] [place] [address] Dr. Graeme Webster IG % 0.7 % Critically high 0.0-0.5 [facility] Comment on above: Performed By: #### C BC #### [facility] [address] [place] [address] Dr. Graeme Wbester LYMPH # 2.8 103/ul Normal 1.2-3.8 [facility] Comment on above: Performed By: #### C BC #### [facility] [address] [place] [address] Dr. Graeme Webster Lymphocytes/100 WBC (Bld) 23.7 % Normal 20.5-60.0 [facility] Comment on above: Performed By: #### C BC #### [facility] [address] [place] [address] Dr. Graeme Webster MANUAL DIFF REQ NO Normal [facility] Comment on above: Performed By: #### C BC #### [facility] [address] [place] [address] Dr. Graeme Webster MCH (RBC) [Entitic mass] 28.9 pg Normal 26.7-34.0 [facility] Comment on above: Performed By: #### C BC #### [facility] [address] [place] [address] Dr. Graeme Webster MCHC (RBC) [Mass/Vol] 32.3 g/dL Normal 29.9-35.2 [facility] Comment on above: Performed By: #### C BC #### [facility] [address] [place] [address] Dr. Graeme Webster MCV (RBC) [Entitic vol] 89.4 fL Normal 81.0-99.0 [facility] Comment on above: Performed By: #### C BC #### [facility] [address] [place] [address] Dr. Graeme Webster MONO # 0.8 103/ul Normal 0.3-0.8 [facility] Comment on above: Performed By: #### C BC #### [facility] [address] [place] [address] Dr. Graeme Webster Monocytes/100 WBC (Bld) 6.8 % Normal 1.7-12.0 [facility] Comment on above: Performed By: #### C BC #### [facility] [address] [place] [address] Dr. Graeme Webster NEUT # 8.0 103/ul Critically high 1.4-6.5 [facility] Comment on above: Performed By: #### C BC #### [facility] [address] [place] [address] Dr. Graeme Webster Neutrophils/100 WBC (Bld) 67.2 % Normal 43.0-75.0 [facility] Comment on above: Performed By: #### C BC #### [facility] [address] [place] [address] Dr. Graeme Webster Platelet mean volume (Bld) [Entitic vol] 10.8 fL Normal 9.5-13.5 [facility] Comment on above: Performed By: #### C BC #### [facility] [address] [place] [address] Dr. Graeme Webster PLT 293 103/ul Normal 150-450 [facility] Comment on above: Performed By: #### C BC #### [facility] [address] [place] [address] Dr. Graeme Webster RBC 4.36 106/ul Normal 4.20-5.40 [facility] Comment on above: Performed By: #### C BC #### [facility] [address] [place] [address] Dr. Graeme Webster WBC 11.8 103/ul Critically high 4.0-11.0 [facility] Comment on above: Performed By: #### C BC #### [facility] [address] [place] [address] Dr. Graeme Webster CBC AUTO DIFFon 05-25-2021 BASO # 0.1 103/ul Normal 0.0-0.1 [facility] Comment on above: Performed By: #### C BC #### [facility] [address] [place] [address] Dr. Graeme Webster Basophils/100 WBC (Bld) 0.8 % Normal 0.2-2.0 [facility] Comment on above: Performed By: #### C BC #### [facility] [address] [place] [address] Dr. Graeme Webster EO # 0.1 103/ul Normal 0.0-0.7 [facility] Comment on above: Performed By: #### C BC #### [facility] [address] [place] [address] Dr. Graeme Webster Eosinophils/100 WBC (Bld) 1.1 % Normal 0.9-7.0 [facility] Comment on above: Performed By: #### C BC #### [facility] [address] [place] [address] Dr. Graeme Webster Erythrocyte distribution width (RBC) [Ratio] 14.6 % Normal 11.0-15.0 [facility] Comment on above: Performed By: #### C BC #### [facility] [address] [place] [address] Dr. Graeme Webster Hematocrit (Bld) [Volume fraction] 37.9 % Normal 36.0-48.0 [facility] Comment on above: Performed By: #### C BC #### [facility] [address] [place] [address] Dr. Graeme Webster Hemoglobin (Bld) [Mass/Vol] 11.9 g/dL Critically low 12.0-16.0 [facility] Comment on above: Result Comment: draw n as outpatient Performed By: #### C BC #### [facility] [address] [place] [address] Dr. Graeme Webster IG # 0.04 10e3/ul Critically high 0.00-0.03 [facility] Comment on above: Performed By: #### C BC #### [facility] [address] [place] [address] Dr. Graeme Webster IG % 0.4 % Normal 0.0-0.5 [facility] Comment on above: Performed By: #### C BC #### [facility] [address] [place] [address] Dr. Graeme Webster LYMPH # 2.7 103/ul Normal 1.2-3.8 [facility] Comment on above: Performed By: #### C BC #### [facility] [address] [place] [address] Dr. Graeme Webster Lymphocytes/100 WBC (Bld) 27.1 % Normal 20.5-60.0 [facility] Comment on above: Performed By: #### C BC #### [facility] [address] [place] [address] Dr. Graeme Webster MANUAL DIFF REQ NO Normal [facility] Comment on above: Performed By: #### C BC #### [facility] [address] [place] [address] Dr. Graeme Webster MCH (RBC) [Entitic mass] 28.3 pg Normal 26.7-34.0 [facility] Comment on above: Performed By: #### C BC #### [facility] [address] [place] [address] Dr. Graeme Webster MCHC (RBC) [Mass/Vol] 31.4 g/dL Normal 29.9-35.2 [facility] Comment on above: Performed By: #### C BC #### [facility] [address] [place] [address] Dr. Graeme Webster MCV (RBC) [Entitic vol] 90.0 fL Normal 81.0-99.0 [facility] Comment on above: Performed By: #### C BC #### [facility] [address] [place] [address] Dr. Graeme Webster MONO # 0.8 103/ul Normal 0.3-0.8 [facility] Comment on above: Performed By: #### C BC #### [facility] [address] [place] [address] Dr. Graeme Webster Monocytes/100 WBC (Bld) 7.9 % Normal 1.7-12.0 [facility] Comment on above: Performed By: #### C BC #### [facility] [address] [place] [address] Dr. Graeme Webster NEUT # 6.3 103/ul Normal 1.4-6.5 [facility] Comment on above: Performed By: #### C BC #### [facility] [address] [place] [address] Dr. Graeme Webster Neutrophils/100 WBC (Bld) 62.7 % Normal 43.0-75.0 [facility] Comment on above: Performed By: #### C BC #### [facility] [address] [place] [address] Dr. Graeme Webster Platelet mean volume (Bld) [Entitic vol] 11.0 fL Normal 9.5-13.5 [facility] Comment on above: Performed By: #### C BC #### [facility] [address] [place] [address] Dr. Graeme Webster PLT 239 103/ul Normal 150-450 [facility] Comment on above: Performed By: #### C BC #### [facility] [address] [place] [address] Dr. Graeme Webster RBC 4.21 106/ul Normal 4.20-5.40 [facility] Comment on above: Performed By: #### C BC #### [facility] [address] [place] [address] Dr. Graeme Webster WBC 10.0 103/ul Normal 4.0-11.0 [facility] Comment on above: Performed By: #### C BC #### [facility] [address] [place] [address] Dr. Graeme Webster Lab Reportson 05-25-2021 Lab Reports [id number]:12 7 Normal [facility] CBC AUTO DIFFon 05-23-2021 BASO # 0.1 103/ul Normal 0.0-0.1 [facility] Comment on above: Performed By: #### C BC #### [facility] [address] [place] [address] Dr. Graeme Webster Basophils/100 WBC (Bld) 0.6 % Normal 0.2-2.0 [facility] Comment on above: Performed By: #### C BC #### [facility] [address] [place] [address] Dr. Graeme Webster EO # 0.1 103/ul Normal 0.0-0.7 [facility] Comment on above: Performed By: #### C BC #### [facility] [address] [address] [address] Graeme Webster Eosinophils/100 WBC (Bld) 0.6 % Critically low 0.9-7.0 [facility] Comment on above: Performed By: #### C BC #### [facility] [address] [place] [address] Dr. Graeme Webster Erythrocyte distribution width (RBC) [Ratio] 14.4 % Normal 11.0-15.0 [facility] Comment on above: Performed By: #### C BC #### [facility] [address] [place] [address] Dr. Graeme Webster Hematocrit (Bld) [Volume fraction] 43.8 % Normal 36.0-48.0 [facility] Comment on above: Performed By: #### C BC #### [facility] [address] [place] [address] Dr. Graeme Webster Hemoglobin (Bld) [Mass/Vol] 13.9 g/dL Normal 12.0-16.0 [facility] Comment on above: Performed By: #### C BC #### [facility] [address] [place] [address] Dr. Graeme Webster IG # 0.04 10e3/ul Critically high 0.00-0.03 [facility] Comment on above: Performed By: #### C BC #### [facility] [address] [place] [address] Dr. Graeme Webster IG % 0.4 % Normal 0.0-0.5 [facility] Comment on above: Performed By: #### C BC #### [facility] [address] [place] [address] Dr. Graeme Webster LYMPH # 2.3 103/ul Normal 1.2-3.8 [facility] Comment on above: Performed By: #### C BC #### [facility] [address] [place] [address] Dr. Graeme Webster Lymphocytes/100 WBC (Bld) 22.8 % Normal 20.5-60.0 [facility] Comment on above: Performed By: #### C BC #### [facility] [address] [place] [address] Dr. Graeme Webster MANUAL DIFF REQ NO Normal [facility] Comment on above: Performed By: #### C BC #### [facility] [address] [place] [address] Dr. Graeme Webster MCH (RBC) [Entitic mass] 28.2 pg Normal 26.7-34.0 [facility] Comment on above: Performed By: #### C BC #### [facility] [address] [place] [address] Dr. Graeme Webster MCHC (RBC) [Mass/Vol] 31.7 g/dL Normal 29.9-35.2 [facility] Comment on above: Performed By: #### C BC #### [facility] [address] [place] [address] Dr. Graeme Webster MCV (RBC) [Entitic vol] 88.8 fL Normal 81.0-99.0 [facility] Comment on above: Performed By: #### C BC #### [facility] [address] [place] [address] Dr. Graeme Webster MONO # 0.7 103/ul Normal 0.3-0.8 [facility] Comment on above: Performed By: #### C BC #### [facility] [address] [place] [address] Dr. Graeme Webster Monocytes/100 WBC (Bld) 6.4 % Normal 1.7-12.0 [facility] Comment on above: Performed By: #### C BC #### [facility] [address] [place] [address] Dr. Graeme Webster NEUT # 7.0 103/ul Critically high 1.4-6.5 [facility] Comment on above: Performed By: #### C BC #### [facility] [address] [place] [address] Dr. Graeme Webster Neutrophils/100 WBC (Bld) 69.2 % Normal 43.0-75.0 [facility] Comment on above: Performed By: #### C BC #### [facility] [address] [place] [address] Dr. Graeme Webster Platelet mean volume (Bld) [Entitic vol] 10.7 fL Normal 9.5-13.5 [facility] Comment on above: Performed By: #### C BC #### [facility] [address] [place] [address] Dr. Graeme Webster PLT 232 103/ul Normal 150-450 [facility] Comment on above: Performed By: #### C BC #### [facility] [address] [place] [address] Dr. Graeme Webster RBC 4.93 106/ul Normal 4.20-5.40 [facility] Comment on above: Performed By: #### C BC #### [facility] [address] [place] [address] Dr. Graeme Webster WBC 10.1 103/ul Normal 4.0-11.0 [facility] Comment on above: Performed By: #### C BC #### [facility] [address] [place] [address] Dr. Graeme Webster OCC BLD IMMUNO SCREENon 04-30 OCCULT BLOOD Positive Abnormal NEGATIVE [facility] Comment on above: Performed By: #### C BC #### [facility] [address] [place] [address] Dr. Graeme Webster PROF CHEM 8 (BAS METB)on Anion gap [Moles/Vol] 12.9 mmol/L Normal [facility] Comment on above: Performed By: #### C BC #### [facility] [address] [place] [address] Dr. Graeme Webster Calcium [Mass/Vol] 8.8 mg/dL Normal 8.4-10.2 [facility] Comment on above: Performed By: #### C BC #### [facility] [address] [place] [address] Dr. Graeme Webster Chloride [Moles/Vol] 104 mmol/L Normal 98-107 [facility] Comment on above: Performed By: #### C BC #### [facility] [address] [place] [address] Dr. Graeme Webster CO2 [Moles/Vol] 27.6 mmol/L Normal 22.0-30.0 [facility] Comment on above: Performed By: #### C BC #### [facility] [address] [place] [address] Dr. Graeme Webster Creatinine [Mass/Vol] 0.70 mg/dL Normal 0.52-1.04 [facility] Comment on above: Performed By: #### C BC #### [facility] [address] [place] [address] Dr. Graeme Webster EGFR-AF BOTSWANAN >60 Normal >=60 [facility] Comment on above: Performed By: #### C BC #### [facility] [address] [place] [address] Dr. Graeme Webster EGFR-NON AF BOTSWANAN >60 Normal >=60 [facility] Comment on above: Performed By: #### C BC #### [facility] [address] [place] [address] Dr. Graeme Webster Glucose [Mass/Vol] 181 mg/dL Critically high 74-106 [facility] Comment on above: Performed By: #### C BC #### [facility] [address] [place] [address] Dr. Graeme Webster Potassium [Moles/Vol] 3.5 mmol/L Normal 3.4-5.0 [facility] Comment on above: Performed By: #### C BC #### [facility] [address] [place] [address] Dr. Graeme Webster Sodium [Moles/Vol] 141 mmol/L Normal 137-145 [facility] Comment on above: Performed By: #### C BC #### [facility] [address] [place] [address] Dr. Graeme Webster Urea nitrogen [Mass/Vol] 16.0 mg/dL Normal 7.0-17.0 [facility] Comment on above: Performed By: #### C BC #### [facility] [address] [place] [address] Dr. Graeme Webster Urea nitrogen/Creatinine [Mass ratio] 22.9 mg/mg Normal [facility] Comment on above: Performed By: #### C BC #### [facility] [address], [place] [address] Dr. Graeme Webster Pathology Noteon 05-22-2021 Pathology Note [id number]:12 7 Normal [facility] Outside Colonoscopyon 2020 Outside Colonoscopy [id number]:12 7 Normal [facility] POINT OF CARE GLUCOSEon 04-30 Glucose [Mass/Vol] 161 mg/dL Critically high 74-106 [facility] Comment on above: Performed By: #### P OCGLUC #### [facility] [address], [place] [address] Dr. Graeme Webster Lab Reportson 05-19-2021 Lab Reports [id number]:12 7 Normal [facility] Covid-19 PCR (CVDTBH)on 04-29 SARS-CoV-2 (COVID-19) RNA ELVIA+probe Ql (Unsp spec) Not detected Normal NOT DETECTED [facility] Comment on above: Result Comment: This test is not yet approved or cleared by the [place] FDA. When there are no FDA-approved or cleared tests available, and other criteria are met, FDA can make tests available under an emergency access mechanism called an Emergency Use Authorization (EUA). The EUA for this test is supported by the [employer] Operator of Health and Human Service's (HHS's) declaration [...] with SARS-CoV-2. Performed By: #### C #### [facility] [address] [place] [address] Dr. Graeme Webster Consenton 04-17-2021 Consent [id number]:127 Normal [facility] Ambulatory Clinical Summaryo n 04-16-2021 Ambulatory Clinical Summary {[id number] Normal [facility] General Surgery Office/Clini c Noteon 04-16-2021 General [...] SARS-CoV-2 (COVID-19) mRNA-1273 vaccine 09/20/2020 Recorded Normal [facility] Comment on above: Result Comment: Elec tronically Signed By: NARENDRA CAMPO, Jessica Figueroa\Date and Time Signed: 04/16/21 11:07 EDT Physician Referralon 021 Physician Referral [id number]:12 7 Normal [facility] Vital Signs Date Time Vital Sign Value Performing Clinician Facility 02-04-2025 09:59-0400 Body height 162.6 cm Conrado Ambriz MD Work Phone: [facility] 02-04-2025 09:59-0400 Body mass index (BMI) [Ratio] 24.37 kg/m2 Conrado Ambriz MD Work Phone: [facility] 02-04-2025 09:59-0400 Body weight 64.41 kg Conrado Ambriz MD Work Phone: [facility] 02-04-2025 09:59-0400 Diastolic blood pressure 76 mm[Hg] Conrado Ambriz MD Work Phone: [facility] 02-04-2025 09:59-0400 Heart rate 87 /min Conrado Ambriz MD Work Phone: [facility] 02-04-2025 09:59-0400 Respiratory rate 17 /min Conrado Ambriz MD Work Phone: [facility] 02-04-2025 09:59-0400 SaO2% (BldA) [Mass fraction] 96 % Conrado Ambriz MD Work Phone: [facility] 02-04-2025 09:59-0400 Systolic blood pressure 138 mm[Hg] Conrado Ambriz MD Work Phone: [facility] 01-08-2025 15:03-0400 Body height 162.56 cm Conrado Ambriz II Work Phone: [facility] 11-29-2024 10:48-0400 Body height 162.6 cm Conrado Ambriz MD Work Phone: [facility] 11-29-2024 10:48-0400 Body mass index (BMI) [Ratio] 24.2 kg/m2 Conrado Ambriz MD Work Phone: [facility] 11-29-2024 10:48-0400 Body weight 63.96 kg Conrado Ambriz MD Work Phone: [facility] 11-29-2024 10:48-0400 Diastolic blood pressure 70 mm[Hg] Conrado Ambriz MD Work Phone: [facility] 11-29-2024 10:48-0400 Heart rate 79 /min Conrado Ambriz MD Work Phone: [facility] 11-29-2024 10:48-0400 SaO2% (BldA) [Mass fraction] 96 % Conrado Ambriz MD Work Phone: [facility] 11-29-2024 10:48-0400 Systolic blood pressure 132 mm[Hg] Conrado Ambriz MD Work Phone: [facility] 11-14-2024 13:53-0400 Body height 162.56 cm Conrado Ambriz II Work Phone: [facility] 11-14-2024 13:53-0400 Body mass index (BMI) [Ratio] 23.8 kg/m2 Conrado Ambriz II Work Phone: [facility] 11-14-2024 13:53-0400 Body weight 63.04 kg Conrado Ambriz II Work Phone: [facility] 11-14-2024 13:53-0400 Diastolic blood pressure 76 mm[Hg] Conrado Ambriz II Work Phone: [facility] 11-14-2024 13:53-0400 Heart rate 99 /min Conrado Ambriz II Work Phone: [facility] 11-14-2024 13:53-0400 Systolic blood pressure 128 mm[Hg] Conrado Ambriz II Work Phone: [facility] 10-25-2024 13:01-0500 Body height 162.6 cm Adnoay Diop LAND DEVELOPMENT MANAGER Work Phone: [facility] 10-25-2024 13:01-0500 Body mass index (BMI) [Ratio] 24.37 kg/m2 Adonay Diop LAND DEVELOPMENT MANAGER Work Phone: [facility] 10-25-2024 13:01-0500 Body weight 64.41 kg Adonay Diop LAND DEVELOPMENT MANAGER Work Phone: [facility] 10-25-2024 13:01-0500 Diastolic blood pressure 70 mm[Hg] Adonay Diop LAND DEVELOPMENT MANAGER Work Phone: [facility] 10-25-2024 13:01-0500 Heart rate 73 /min Adonay Diop LAND DEVELOPMENT MANAGER Work Phone: [facility] 10-25-2024 13:01-0500 SaO2% (BldA) [Mass fraction] 97 % Adonay Diop LAND DEVELOPMENT MANAGER Work Phone: [facility] 10-25-2024 13:01-0500 Systolic blood pressure 134 mm[Hg] Adonay Diop LAND DEVELOPMENT MANAGER Work Phone: [facility] 10-03-2024 13:16-0500 Body height 162.56 cm [facility] 10-03-2024 13:16-0500 Body mass index (BMI) [Ratio] 23.9 kg/m2 [facility] 10-03-2024 13:16-0500 Body weight 63.2 kg [facility] 08-31-2024 10:42-0500 Body height 162.6 cm Conrado Ambriz MD Work Phone: [facility] 08-31-2024 10:42-0500 Body mass index (BMI) [Ratio] 24.37 kg/m2 Conrado Ambriz MD Work Phone: [facility] 08-31-2024 10:42-0500 Body weight 64.41 kg Conrado Ambriz MD Work Phone: [facility] 08-31-2024 10:42-0500 Diastolic blood pressure 72 mm[Hg] Conrado Ambriz MD Work Phone: [facility] 08-31-2024 10:42-0500 Heart rate 83 /min Conrado Ambriz MD Work Phone: [facility] 08-31-2024 10:42-0500 SaO2% (BldA) [Mass fraction] 97 % Conrado Ambriz MD Work Phone: [facility] 08-31-2024 10:42-0500 Systolic blood pressure 132 mm[Hg] Conrado Ambriz MD Work Phone: [facility] 08-01-2024 09:27-0500 Body height 162.6 cm Conrado Ambriz MD Work Phone: [facility] 08-01-2024 09:27-0500 Body mass index (BMI) [Ratio] 24.03 kg/m2 Conrado Ambriz MD Work Phone: [facility] 08-01-2024 09:27-0500 Body temperature 97 [degF] Conrado Ambriz MD Work Phone: [facility] 08-01-2024 09:27-0500 Body weight 63.5 kg Conrado Ambriz MD Work Phone: [facility] 08-01-2024 09:27-0500 Diastolic blood pressure 62 mm[Hg] Conrado Ambriz MD Work Phone: [facility] 08-01-2024 09:27-0500 Heart rate 67 /min Conrado Ambriz MD Work Phone: [facility] 08-01-2024 09:27-0500 SaO2% (BldA) [Mass fraction] 98 % Conrado Ambriz MD Work Phone: [facility] 08-01-2024 09:27-0500 Systolic blood pressure 132 mm[Hg] Conrado Ambriz MD Work Phone: [facility] 07-24-2024 13:24-0500 Body height 162.56 cm [facility] 07-02-2024 14:16-0500 Body height 162.6 cm Analy Hemmer PA Work Phone: [facility] 07-02-2024 14:16-0500 Body mass index (BMI) [Ratio] 24.41 kg/m2 Analy Hemmer PA Work Phone: [facility] 07-02-2024 14:16-0500 Body weight 64.5 kg Analy Hemmer PA Work Phone: [facility] 07-02-2024 14:16-0500 Diastolic blood pressure 76 mm[Hg] Analy Hemmer PA Work Phone: [facility] 07-02-2024 14:16-0500 Heart rate 74 /min Analy Hemmer PA Work Phone: [facility] 07-02-2024 14:16-0500 Respiratory rate 16 /min Analy Hemmer PA Work Phone: [facility] 07-02-2024 14:16-0500 SaO2% (BldA) [Mass fraction] 95 % Analy Hemmer PA Work Phone: [facility] 07-02-2024 14:16-0500 Systolic blood pressure 148 mm[Hg] Analy Hemmer PA Work Phone: [facility] 06-20-2024 11:13-0400 Body height 162.56 cm II Conrado Ambriz Work Phone: [facility] 06-20-2024 11:13-0400 Body mass index (BMI) [Ratio] 23.8 kg/m2 II Conrado Ambriz Work Phone: [facility] 06-20-2024 11:13-0400 Body weight 63.04 kg II Conrado Ambriz Work Phone: [facility] 06-20-2024 11:13-0400 Diastolic blood pressure 68 mm[Hg] II Conrado Ambriz Work Phone: [facility] 06-20-2024 11:13-0400 Heart rate 69 /min II Conrado Ambriz Work Phone: [facility] 06-20-2024 11:13-0400 Systolic blood pressure 158 mm[Hg] II Conrado Ambriz Work Phone: [facility] 06-11-2024 11:08-0400 Body height 162.6 cm Conrado Ambriz MD Work Phone: [facility] 06-11-2024 11:08-0400 Body mass index (BMI) [Ratio] 24.03 kg/m2 Conrado Ambriz MD Work Phone: [facility] 06-11-2024 11:08-0400 Body weight 63.5 kg Conrado Ambriz MD Work Phone: [facility] 06-11-2024 11:08-0400 Diastolic blood pressure 76 mm[Hg] Conrado Ambriz MD Work Phone: [facility] 06-11-2024 11:08-0400 Heart rate 75 /min Conrado Ambriz MD Work Phone: [facility] 06-11-2024 11:08-0400 SaO2% (BldA) [Mass fraction] 96 % Conrado Ambriz MD Work Phone: [facility] 06-11-2024 11:08-0400 Systolic blood pressure 128 mm[Hg] Conrado Ambriz MD Work Phone: [facility] 05-23-2024 10:00-0400 Diastolic blood pressure 76 mm[Hg] II Conrado Ambriz Work Phone: [facility] 05-23-2024 10:00-0400 Heart rate 71 /min II Conrado Ambriz Work Phone: [facility] 05-23-2024 10:00-0400 Respiratory rate 16 /min II Conrado Ambriz Work Phone: [facility] 05-23-2024 10:00-0400 SaO2% (BldA) [Mass fraction] 98 % II Conrado Ambriz Work Phone: [facility] 05-23-2024 10:00-0400 Systolic blood pressure 136 mm[Hg] II Conrado Ambriz Work Phone: [facility] 05-23-2024 08:50-0400 Body height 162.56 cm II Conrado Ambriz Work Phone: [facility] 05-23-2024 08:50-0400 Body weight 54.43 kg II Conrado Ambriz Work Phone: [facility] 04-16-2024 10:04-0400 Body height 162.56 cm [facility] 04-16-2024 10:04-0400 Body mass index (BMI) [Ratio] 23.8 kg/m2 [facility] 04-16-2024 10:04-0400 Body weight 63.04 kg [facility] 12-13-2022 11:47-0400 Diastolic blood pressure 76 mm[Hg] MD Fernando Diamond Work Phone: [facility] 12-13-2022 11:47-0400 Heart rate 71 /min MD Fernando Diamond Work Phone: [facility] 12-13-2022 11:47-0400 Respiratory rate 18 /min MD Fernando Diamond Work Phone: [facility] 12-13-2022 11:47-0400 SaO2% (BldA) [Mass fraction] 96 % MD Fernando Diamond Work Phone: [facility] 12-13-2022 11:47-0400 Systolic blood pressure 142 mm[Hg] MD Fernando Diamond Work Phone: [facility] 12-13-2022 11:02-0400 Body height 162.56 cm MD Fernando Diamond Work Phone: [facility] 12-13-2022 11:02-0400 Body temperature 97.4 [degF] MD Fernando Diamond Work Phone: [facility] 12-13-2022 11:02-0400 Body weight 64.1 kg MD Fernando Diamond Work Phone: [facility] 08-19-2021 15:00-0500 Body weight 62.6 kg Sadiq Barton Other [employer] Other Encounters Encounter Date Encounter Type Care Provider Facility Start: 04-05-2025 End: 04-05-2025 Bamboo flowsheet Prem Morales DPM Work Phone: [facility] Start: 04-05-2025 End: 04-05-2025 Bamboo flowsheet Prem Morales DPM Work Phone: [facility] Start: 04-05-2025 End: 04-05-2025 Patient encounter procedure Prem Morales DPM Work Phone: [facility] Comment on above: Onychomycosis; Nail deformity; Type 2 diabetes mellitus with other neurologic complication, 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 (HCC); Localized edema Start: 04-05-2025 End: 04-05-2025 ambulatory PREM MORALES Not Available Start: 02-04-2025 End: 02-04-2025 Bamboo flowsheet Conrado Ambriz MD Work Phone: [facility] Start: 02-04-2025 End: 02-04-2025 Bamboo flowsheet Conrado Ambriz MD Work Phone: [facility] Start: 02-04-2025 End: 02-04-2025 Office outpatient visit 25 minutes Conrado Ambriz MD Work Phone: [facility] Comment on above: Type 2 diabetes philip itus with other neurologic complication, without long-term current use of insulin (Primary Dx); Acute non-recurrent frontal sinusitis; Mixed hyperlipidemia (CMS/[facility]); Acquired hypothyroidism ([facility]); Type 2 diabetes mellitus with peripheral neuropathy ([facility]) Start: 02-04-2025 End: 02-04-2025 ambulatory CONRADO AMBRIZ Not Available Start: 01-08-2025 End: 01-08-2025 ambulatory Conrado Ambriz II Work Phone: [facility] Work Phone: Start: 01-08-2025 End: 01-08-2025 Patient encounter procedure Conrado Ambriz II Work Phone: [facility] Work Phone: Start: 01-08-2025 End: 01-08-2025 Bamboo flowsheet Prem Morales DPM Work Phone: [facility] Start: 01-08-2025 End: 01-08-2025 Bamboo flowsheet Prem Morales DPM Work Phone: [facility] Start: 01-08-2025 End: 01-08-2025 Patient encounter procedure Prem Morales DPM Work Phone: [facility] Comment on above: Type 2 diabetes philip itus with other neurologic complication, 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 senior living insulin use ([facility]); Onychomycosis; Nail deformity; Pain around toenail, left foot; Localized edema Start: 01-08-2025 End: 01-08-2025 ambulatory PREM MORALES Not Available Start: 12-18-2024 End: 12-19-2024 Refill Conrado Ambriz MD Work Phone: [facility] Comment on above: Benign essential hyp ertension (CMS/HCC); Acquired hypothyroidism (CMS/HCC); Degenerative disc disease, lumbar Start: 12-06-2024 End: 12-06-2024 Bamboo flowsheet Erasmo JETT Work Phone: [facility] Start: 12-06-2024 End: 12-06-2024 Bamboo flowsheet Erasmo JETT Work Phone: [facility] Start: 12-06-2024 End: 12-06-2024 Office outpatient visit 15 minutes Erasmo JETT Work Phone: [facility] Comment on above: Acute pain of right shoulder (Primary Dx); Right shoulder pain, unspecified chronicity; Primary osteoarthritis of right shoulder Start: 12-06-2024 End: 12-06-2024 ambulatory ERASMO ALVAREZ Not Available Start: 11-29-2024 End: 11-29-2024 Bamboo flowsheet Conrado Ambriz MD Work Phone: [facility] Start: 11-29-2024 End: 11-29-2024 Bamboo flowsheet Conrado Ambriz MD Work Phone: [facility] Start: 11-29-2024 End: 11-29-2024 Office outpatient visit 25 minutes Conrado Ambriz MD Work Phone: [facility] Comment on above: Acute non-recurrent frontal sinusitis (Primary Dx); Type 2 diabetes mellitus with other neurologic complication, without long-term current use of insulin; Psoriasis; Primary osteoarthritis of right shoulder Start: 11-29-2024 End: 11-29-2024 ambulatory CONRADO AMBRIZ Not Available Start: 11-14-2024 End: 11-14-2024 ambulatory Conrado Ambriz II Work Phone: [facility] Work Phone: Start: 11-14-2024 End: 11-14-2024 Patient encounter procedure Conrado Ambriz II Work Phone: [facility] Work Phone: Start: 10-25-2024 End: 10-25-2024 Bamboo flowsheet Adonay Diop LAND DEVELOPMENT MANAGER Work Phone: [facility] Start: 10-25-2024 End: 10-25-2024 Bamboo flowsheet Adonay Diop LAND DEVELOPMENT MANAGER Work Phone: [facility] Start: 10-25-2024 End: 10-25-2024 Office outpatient visit 25 minutes Adonay Diop LAND DEVELOPMENT MANAGER Work Phone: [facility] Comment on above: Encounter for diabet ic foot exam (CMS/HCC) (Primary Dx); Type 2 diabetes mellitus with other neurologic complication, without long-term current use of insulin (CMS/HCC); Neuropathic pain; Acute non-recurrent frontal sinusitis; Restless legs syndrome (RLS); Bilateral impacted cerumen; Exudative age-related macular degeneration, bilateral, with inactive choroidal neovascularization (CMS/HCC); Vitreous hemorrhage, bilateral (CMS/HCC); Inflammatory polyps of colon without complications (CMS/HCC); Inflammatory polyps of colon with rectal bleeding (CMS/HCC) Start: 10-25-2024 End: 10-25-2024 ambulatory ADONAY DIOP Not Available Start: 10-24-2024 End: 10-24-2024 Bamboo flowsheet Prem Morales DPM Work Phone: [facility] Start: 10-24-2024 End: 10-24-2024 Bamboo flowsheet Prem Morales DPM Work Phone: [facility] Start: 10-24-2024 End: 10-24-2024 Patient encounter procedure Prem Morales DPM Work Phone: [facility] Comment on above: Ingrown toenail of b oth feet (Primary Dx); Onychomycosis; Pain around toenail, left foot; Pain around toenail, right foot; Type 2 diabetes mellitus with other neurologic complication, 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 senior living insulin use (CMS/HCC); Localized edema; Nail deformity Start: 10-24-2024 End: 10-24-2024 ambulatory PREM MORALES Not Available Start: 10-15-2024 End: 10-15-2024 Patient encounter procedure Conrado Ambriz II Work Phone: [facility] [place] Work Phone: Start: 10-15-2024 End: 10-15-2024 ambulatory Conrado Ambriz Facility:[facility] Start: 10-03-2024 End: 10-03-2024 ambulatory [facility] Work Phone: Start: 10-03-2024 End: 10-03-2024 Patient encounter procedure [facility] Work Phone: Start: 08-31-2024 End: 08-31-2024 Bamboo flowsheet Conrado Ambriz MD Work Phone: [facility] Start: 08-31-2024 End: 08-31-2024 Bamboo flowsheet Conrado Ambriz MD Work Phone: [facility] Start: 08-31-2024 End: 08-31-2024 ambulatory CONRADO AMBRIZ Not Available Start: 08-31-2024 End: 08-31-2024 Office outpatient visit 25 minutes Conrado Ambriz MD Work Phone: [facility] Comment on above: Type 2 diabetes philip itus with other neurologic complication, without long-term current use of insulin ([facility]) (Primary Dx); Gastroesophageal reflux disease, 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 esophagitis present; Mixed stress and urge urinary incontinence Start: 08-01-2024 End: 08-01-2024 Bamboo flowsmagda Ambriz MD Work Phone: [facility] Start: 08-01-2024 End: 08-01-2024 Bamboo flowsmagda Ambriz MD Work Phone: [facility] Start: 08-01-2024 End: 08-01-2024 Office outpatient visit 25 minutes Conrado Ambriz MD Work Phone: [facility] Comment on above: Acute cystitis witho ut hematuria (Primary Dx); Gastroesophageal reflux disease, 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 esophagitis present; Acute non-recurrent sinusitis, unspecified location Start: 08-01-2024 End: 08-01-2024 ambulatory CONRADO AMBRIZ Not Available Start: 07-24-2024 End: 07-24-2024 ambulatory PREM Adair BETTYChristopher Not Available Start: 07-24-2024 End: 07-24-2024 Bamboo flowsheet Prem Morales DPM Work Phone: [facility] Start: 07-24-2024 End: 07-24-2024 Bamboo flowsheet Prem Chenyosephchristopher DPM Work Phone: [facility] Start: 07-24-2024 End: 07-24-2024 Patient encounter procedure [facility] Work Phone: Start: 07-24-2024 End: 07-24-2024 Patient encounter procedure Prem Morales DPM Work Phone: [facility] Comment on above: Onychomycosis (Prima ry Dx); Pain around toenail, left foot; Type 2 diabetes mellitus with other neurologic complication, 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 (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/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); Localized edema Start: 07-02-2024 End: 07-02-2024 Bamboo flowsheet Analy JETT Work Phone: [facility] Start: 07-02-2024 End: 07-02-2024 Bamboo flowsheet Analy JETT Work Phone: [facility] Start: 07-02-2024 End: 07-02-2024 Patient encounter procedure Analy JETT Work Phone: [facility] Comment on above: Medicare annual well ness visit, subsequent (Primary Dx); ACP (advance care planning); Chronic insomnia; Degenerative lumbar spinal stenosis; Type 2 diabetes mellitus with other neurologic complication, without long-term current use of insulin (CMS/HCC); Entrapment of left ulnar nerve; Neuropathic pain; Peripheral neuralgia; Restless legs syndrome (RLS); Asymptomatic varicose veins; Benign essential hypertension (CMS/HCC); Sinus arrhythmia; Altered bowel function; Chronic constipation; Cyst of pancreas (CMS/HCC); Diverticulosis of sigmoid colon; Gastroesophageal reflux disease without esophagitis; Hyperplastic polyp of large intestine; Incontinence of feces, unspecified fecal incontinence type; Irritable bowel syndrome with constipation; Pseudopolyposis of colon, unspecified complication status, unspecified part of colon (CMS/HCC); Mixed stress and urge urinary incontinence; Renal cyst; Right nephrolithiasis; Acquired pes planovalgus of left foot; Acquired pes planovalgus of right foot; Bilateral sacroiliitis (CMS/HCC); Degeneration of intervertebral disc of lumbar region with discogenic back pain; Dermatophytosis of nail; Fat pad atrophy of foot; Hallux limitus of left foot; Hallux limitus of right foot; Hallux valgus of left foot; Hallux valgus of right foot; Hammertoe of left foot; Hammertoe of right foot; Nail deformity; Primary osteoarthritis of both knees; Age-related osteoporosis without current pathological fracture (CMS/HCC); Spondylolisthesis, unspecified spinal region; Acquired hypothyroidism ([facility]); Type 2 diabetes mellitus with hyperglycemia, without long-term current use of insulin ([facility]); Atopic dermatitis, unspecified type; Balance problem; Tinnitus of both ears; Sensorineural hearing loss (SNHL), bilateral; Risk for falls; Psoriasis, unspecified ([facility]/HCC); Pre-ulcerative calluses; Other allergic rhinitis; Mixed hyperlipidemia ([facility]/HCC); Macular degeneration of both eyes, unspecified type; Localized edema; Impaired ambulation; History of partial colectomy; Ganglion cyst; Skin tear of lower leg without complication, left, initial encounter; Exudative age-related macular degeneration, bilateral, with inactive choroidal neovascularization ([facility]); Vitreous hemorrhage, bilateral ([facility]) Start: 07-02-2024 End: 07-02-2024 ambulatory ANALY MARTINEZ Not Available Start: 06-20-2024 End: 06-20-2024 ambulatory II Conrado Ambriz Work Phone: [facility] Work Phone: Start: 06-20-2024 End: 06-20-2024 Patient encounter procedure II Cnorado Ambriz Work Phone: [facility] Work Phone: Start: 06-11-2024 End: 06-11-2024 Bamboo flowsheet Conrado Ambriz MD Work Phone: [facility] Start: 06-11-2024 End: 06-11-2024 Bamboo flowsheet Conrado Ambriz MD Work Phone: [facility] Start: 06-11-2024 End: 06-11-2024 Office outpatient visit 25 minutes Conrado Ambriz MD Work Phone: [facility] Comment on above: Mixed hyperlipidemia (CMS/HCC) (Primary Dx); Type 2 diabetes mellitus with other neurologic complication, without long-term current use of insulin (CMS/HCC); Flu vaccine need; Acquired hypothyroidism (CMS/HCC); Benign essential hypertension (CMS/HCC); Acute non-recurrent sinusitis, unspecified location Start: 06-11-2024 End: 06-11-2024 ambulatory CONRADO AMBRIZ Not Available Start: 05-23-2024 Non-patient / Non-visit II Won Ambriz Work Phone: [facility] [facility] G[facility] Work Phone: Start: 05-23-2024 End: 05-23-2024 Admission to same day surgery center II Conrado Ambriz Work Phone: [facility] Work Phone: Start: 05-23-2024 End: 05-23-2024 ambulatory II Conrado Ambriz Work Phone: [facility] Work Phone: Start: 04-20-2024 End: 04-20-2024 Bamboo flowsheet Prem Morales DPM Work Phone: [facility] Start: 04-20-2024 End: 04-20-2024 Bamboo flowsheet Prem Morales DPM Work Phone: [facility] Start: 04-20-2024 End: 04-20-2024 Patient encounter procedure Prem Morales DPM Work Phone: [facility] Comment on above: Onychomycosis (Prima ry Dx); Pain around toenail, left foot; Nail deformity; Type 2 diabetes mellitus with other neurologic complication, 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 senior living insulin use ([facility]); Localized edema; Ingrown toenail Start: 04-20-2024 End: 04-20-2024 ambulatory PREM MORALES Not Available Start: 04-16-2024 End: 04-16-2024 ambulatory [facility] Work Phone: Start: 04-16-2024 End: 04-16-2024 Patient encounter procedure [facility] Work Phone: Start: 12-13-2022 End: 12-13-2022 Emergency department patient visit MD Fernando Diamond Work Phone: [facility]Emergency [facility] Work Phone: Start: 04-30-2022 End: 05-01-2022 Evaluation and management of inpatient DR CONRADO AMBRIZ Facility:H1 Start: 08-26-2021 End: 08-26-2021 ambulatory SADIQ JAREDLeslie Facility:[facility]1 Start: 08-19-2021 End: 08-19-2021 ambulatory Dante Renee Other [employer] [place] [employer] Other Start: 08-19-2021 FQ visit new patient Sadiq Pastorleonardoleslie [facility] Start: 08-19-2021 Telephone encounter Dante Renee [facility] G[facility] Start: 05-31-2021 Encounter for other preprocedural examination DR JESSICA MACKEY [facility] Start: 05-28-2021 End: 05-29-[address] JESSICA [...] Date Procedure Procedure Detail Performing Clinician Start: 02-04-2025 Hemoglobin glycosyla heidy a1c Conrado Ambriz MD Work Phone: Start: 02-04-2025 Urnls dip stick/tabl et rgnt non-auto w/o micrscp Conrado Ambriz MD Work Phone: Start: 12-06-2024 Radex shoulder compl ete minimum 2 views Erasmo JETT Work Phone: Start: 11-29-2024 Hemoglobin glycosyla heidy a1c Conrado Ambriz MD Work Phone: Start: 10-15-2024 Supine abdominal X-ray Conrado Ambriz II Work Phone: Start: 08-31-2024 Urnls dip stick/tabl et rgnt non-auto w/o micrscp Conrado Ambriz MD Work Phone: Start: 06-11-2024 Hemoglobin glycosyla heidy a1c Conrado Ambriz MD Work Phone: Start: 05-23-2024 Colonoscopy II Conrado Ambriz Work Phone: Start: 12-13-2022 Screening for occult blood in feces MD Fernando Diamond Work Phone: Plan of Treatment Date Care Activity Detail Author Start: 07-03-2025 End: 07-03-2025 Patient encounter procedure 07/03/2025 10:45 AM EST Procedure Visit [facility] [address] [place] [phone] Prem Morales DPM [address] [place] [address] [facility] Start: 07-02-2025 Medicare Annual Well ness (AWV) Medicare Annual Wellness (AWV) [facility] Start: 06-11-2025 Urine screening for protein Diabetes: Urine Protein Screening [facility] Start: 05-09-2025 End: 05-09-2025 Patient encounter procedure 05/09/2025 10:00 AM EDT Office Visit [facility] [address] [facility] [address] [place] [address] Conrado Ambriz MD [address] [facility] [address] [place] [address] [facility] [place] [facility] Start: 05-07-2025 Hemoglobin A1c measurement Diabetes: Hemoglobin A1C [facility] Start: 04-29-2025 Influenza vaccination Influenza Vacc ine (#1) [facility] Start: 04-05-2025 End: 04-05-2025 Patient encounter procedure 04/05/2025 1:00 PM EDT Procedure Visit [facility] [address] [place] [phone] Prem Morales, DPM [address] [place] [address] Arrived [facility] Comment on above: Arrived Start: 04-03-2025 End: 04-03-2025 Patient encounter procedure 04/03/2025 9:45 AM EDT Procedure Visit [facility] [address] [place] [phone] Prem Morales DPM [address] [place] [address] [facility] Start: 02-28-2025 Hemoglobin A1c measurement Diabetes: Hemoglobin A1C [facility] Start: 02-04-2025 End: 02-04-2026 Comprehensive metabolic 2000 panel - Serum or Plasma Comprehensive metabolic panel Lab Routine Type 2 diabetes mellitus with other neurologic complication, without long-term current use of insulin Acute non-recurrent frontal sinusitis Expected: 02/04/2025 (Approximate), Expires: 02/04/2026 [facility] Work Phone: Comment on above: Expected: 02/04/2025 (Approximate), Expires: 02/04/2026 Start: 02-04-2025 End: 02-04-2026 Thyrotropin [Units/volume] in Serum or Plasma TSH Lab Routine Acquired hypothyroidism (CMS/HCC) Expected: 02/04/2025 (Approximate), Expires: 02/04/2026 [facility] Comment on above: Expected: 02/04/2025 (Approximate), Expires: 02/04/2026 Start: 02-04-2025 End: 02-04-2025 Patient encounter procedure [facility] Comment on above: Arrived Start: 01-08-2025 End: 01-08-2025 Patient encounter procedure [facility] Comment on above: Arrived Start: 12-14-2024 End: 12-14-2024 Patient encounter procedure 12/14/2024 10:00 AM EDT Office Visit [facility] [address] [facility] [address] [place] [address] Conrado Ambriz MD [address] [facility] [address] [place] [address] [facility] Start: 12-06-2024 End: 12-06-2024 Patient encounter procedure 12/06/2024 9:45 AM EDT Office Visit [facility] [address] [facility] [address] [place] [address] Erasmo Alvarez PA [address] [facility] [address] [place] [address] Acute pain of right shoulder (Primary Dx); Right shoulder pain, unspecified chronicity; Primary osteoarthritis of right shoulder [facility] Comment on above: Acute pain of right shoulder (Primary Dx); Right shoulder pain, unspecified chronicity; Primary osteoarthritis of right shoulder Start: 11-29-2024 End: 11-29-2024 Patient encounter procedure 11/29/2024 11:00 AM EDT Office Visit [facility] [address] [facility] [address] [place] [address] Conrado Ambriz MD [address] [facility] [address] [place] [address] Arrived [facility] Comment on above: Arrived Start: 10-25-2024 End: 10-25-2024 Patient encounter procedure [facility] Comment on above: Arrived Start: 10-24-2024 End: 10-24-2024 Patient encounter procedure [facility] Comment on above: Arrived Start: 09-12-2024 End: 09-12-2024 Patient encounter procedure 09/12/2024 11:00 AM EST Office Visit [facility] [address] [place] [address] Conrado Ambriz MD [address] [place] [address] [facility] Start: 09-11-2024 Hemoglobin A1c measurement Diabetes: Hemoglobin A1C [facility] Start: 08-31-2024 End: 08-31-2024 Patient encounter procedure 08/31/2024 10:30 AM EST Office Visit [facility] [address] [place] [address] Conrado Ambriz MD [address] [place] [address] [facility] Start: 08-01-2024 End: 08-01-2024 Patient encounter procedure 08/01/2024 9:30 AM EST Office Visit [facility] [address] [place] [address] Conrado Ambriz MD [address] [place] [address] Arrived [facility] Comment on above: Arrived Start: 07-24-2024 End: 07-24-2024 Patient encounter procedure 07/24/2024 10:45 AM EST Procedure Visit [facility] [address] [place] [address] Prem Morales DPM [address] [place] [address] [facility] Start: 07-02-2024 End: 07-02-2024 Patient encounter procedure 07/02/2024 2:00 PM EST Office Visit [facility] [address] [place] [address] Analy Martinez PA [address] [place] [address] Arrived [facility] Comment on above: Arrived Start: 06-23-2024 Medicare Annual Well ness (AWV) Medicare Annual Wellness (AWV) [facility] Start: 06-23-2024 Urine screening for protein Diabetes: Urine Protein Screening [facility] Start: 06-11-2024 End: 06-11-2025 Comprehensive metabolic 2000 panel - Serum or Plasma Comprehensive metabolic panel Lab Routine Benign essential hypertension ([facility]/HCC) Expected: 06/11/2024 (Approximate), Expires: 06/11/2025 [facility] Comment on above: Expected: 06/11/2024 (Approximate), Expires: 06/11/2025 Start: 06-11-2024 End: 06-11-2025 Lipid 1996 panel - Serum or Plasma Lipid panel Lab Routine Mixed hyperlipidemia ([facility]/HCC) Expected: 06/11/2024 (Approximate), Expires: 06/11/2025 [facility] Comment on above: Expected: 06/11/2024 (Approximate), Expires: 06/11/2025 Start: 06-11-2024 End: 06-11-2025 TSH W/REFLEX TO FT4 TSH W/REFLEX TO FT4 Lab Routine Acquired hypothyroidism (CMS/HCC) Expected: 06/11/2024 (Approximate), Expires: 06/11/2025 [facility] Comment on above: Expected: 06/11/2024 (Approximate), Expires: 06/11/2025 Start: 06-11-2024 End: 06-11-2024 Patient encounter procedure 06/11/2024 11:15 AM EDT Office Visit [facility] [address] [place] [phone] Conrado Ambriz MD [address] [place] [address] Arrived [facility] Comment on above: Arrived Start: 05-23-2024 [facility] Start: 04-29-2024 Influenza vaccination Influenza Vacc ine (#1) [facility] Start: 04-20-2024 End: 04-20-2024 Patient encounter procedure 04/20/2024 9:00 AM EDT Procedure Visit [facility] [address] [place] [phone] Prem Morales DPM [address] [place] [address] Arrived [facility] Comment on above: Arrived Start: 03-19-2024 Hemoglobin A1c measurement Diabetes: Hemoglobin A1C [facility] Start: 08-12-2023 Glaucoma screening Diabetes: R etinopathy Screening [facility] CBC W Auto Different ial panel - Blood CBC and differential Lab Routine Benign essential hypertension (CMS/HCC) Ordered: 06/11/2024 [facility] Work Phone: Comment on above: Ordered: 06/11/2024 CBC W Auto Different ial panel - Blood CBC and differential Lab Routine Type 2 diabetes mellitus with other neurologic complication, without long-term current use of insulin Acute non-recurrent frontal sinusitis Ordered: 02/04/2025 [facility] Comment on above: Ordered: 02/04/2025 Patient Education [facility] Work Phone: Patient referral [facility] Work Phone: Immunizations Immunization Date Immunization Notes Care Provider [facility] 06-11-2024 Influenza, High-dose Seasonal, Quadrivalent, Preservative Free Conrado Ambriz MD Work Phone: [facility] 06-11-2024 influenza virus vacc ine, unspecified formulation Prem Morales DPM Work Phone: [facility] 06-17-2023 Influenza, High-dose Seasonal, Quadrivalent, Preservative Free Prem Morales DPM Work Phone: [facility] 06-17-2023 influenza virus vacc ine, unspecified formulation Prem Chenyosephz DPM Work Phone: [facility] 07-13-2022 Moderna Bivalent Hannah ster Vaccination Prem Chenyosephz DPM Work Phone: [facility] 06-10-2022 Influenza, High-dose Seasonal, Quadrivalent, Preservative Free Prem Gustavobitz DPM Work Phone: [facility] 07-08-2021 COVID-19 mRNA, Comir chayo (Pfizer) MD Fernando Diamond Work Phone: [facility] 06-18-2021 Influenza, Seasonal, Quadrivalent, Adjuvanted Prem Chenbitz DPM Work Phone: [facility] 10-11-2020 COVID-19 mRNA Comir chayo (Pfizer) MD Fernando Diamond Work Phone: [facility] 09-20-2020 COVID-19 mRNA, Comir chayo (Pfizer) MD Fernando Diamond Work Phone: [facility] 05-16-2020 Influenza, Seasonal, Quadrivalent, Adjuvanted Prem Gustavobitz DPM Work Phone: [facility] 06-12-2019 influenza, high dose seasonal, preservative-free Prem Chenbitz DPM Work Phone: [facility] 07-13-2018 pneumococcal polysaccharide vaccine, 23 valent Prem Gustavobitz DPM Work Phone: [facility] 06-19-2018 influenza, high dose seasonal, preservative-free Prem Gustavobitz DPM Work Phone: [facility] 06-19-2018 zoster vaccine recombinant Prem Gustavobitz DPM Work Phone: [facility] 01-09-2018 zoster vaccine recombinant Prem Gustavobitz DPM Work Phone: [facility] 05-30-2017 influenza, high dose seasonal, preservative-free Prem Gustavobitz DPM Work Phone: [facility] 10-20-2016 pneumococcal conjuga te vaccine, 13 valent Prem Kubitz DPM Work Phone: [facility] 06-01-2016 influenza, injectabl e, quadrivalent, preservative free Prem Kubitz DPM Work Phone: [facility] 07-30-2015 pneumococcal polysaccharide vaccine, 23 valent Prem Kubitz DPM Work Phone: [facility] 05-08-2015 seasonal influenza, intradermal, preservative free Prem Kubitz DPM Work Phone: [facility] 12-27-2014 pneumococcal polysaccharide vaccine, 23 valent Prem Kubitz DPM Work Phone: [facility] 06-03-2014 seasonal influenza, intradermal, preservative free Prem Kubitz DPM Work Phone: [facility] 12-27-2005 pneumococcal polysaccharide vaccine, 23 valent Prem Kubitz DPM Work Phone: [facility] 07-13-2002 pneumococcal polysaccharide vaccine, 23 valent Prem Kubitz DPM Work Phone: [facility] Payers Date Payer Category Payer [facility] Insurance [employer] [id number] 2021 Unknown [employer] [place] [employer] [id number] 2021-Present [address] [place] [address] [id number] 2001 Medicare [id number]. [id number] 1959 Medicare [id number] [id number] 1959 Unknown [id number] 2.16.840.1.549954.19 1936 Unknown [id number] 2.16.840.1.397504.3.579.2. 593 1936 Unknown [id number] 2.16.840.1.212734.3.579.2. 593 1936 Unknown [id number] 2.16.840.1.129508.3.579.2. 593 1936 Unknown [id number] 2.16.840.1.089288.3.579.2. 593 1936 Unknown [id number] 2.16.840.1.647620.3.579.2. 593 1936 Unknown [id number] 2.16.840.1.891161.3.579.2. 593 1936 Unknown [id number] 2.16.840.1.231312.3.579.2. 593 1936 Unknown [id number] 2.16.840.1.012307.3.579.2. 593 1936 Unknown [id number] 2.16.840.1.878121.3.579.2. 1259 1936 Unknown [id number] 2.16.840.1.232972.3.579.2. 1259 1936 Unknown [id number] 2.16.840.1.359306.3.579.2. 1259 1936 Unknown [id number] 2.16.840.1.594970.3.579.2. 1259 1936 Unknown [id number] 2.16.840.1.878326.3.579.2. 1259 1936 Unknown [id number] 2.16.840.1.923951.3.579.2. 1258 1936 Unknown [id number] 2.16.840.1.379120.3.579.2. 1259 1936 Unknown [id number] 2.16.840.1.580510.3.579.2. 125 1936 Unknown [id number] 2.16.840.1.376312.3.579.2. 1259 1936 Unknown [id number] 2.16.840.1.686591.3.579.2. 1258 1936 Unknown [id number] 2.16.840.1.942011.3.579.2. 1258 1936 Unknown [id number] 2.16.840.1.911272.3.579.2. 125 1936 Unknown [id number] 2.16.840.1.041570.3.579.2. 1258 1936 Unknown [id number] 2.16.840.1.191121.3.579.2. 1259 Medicare Medicare Nonpatient [id number] Self-pay Self Pay [id number] Unknown [place] [id number] Social History Date Type Detail Facility Start: 04-21-2023 End: 03-26-[address] [facility] [employer] Other Start: 12-13-2022 End: 01-16-2023 Tobacco smoking status NHIS Never smoked tobacco (finding) [facility] Start: 1935 Sex Assigned At Female [facility] Start: 01-16-2023 Tobacco use and exposure Smokeless tobacco non-user [facility] Start: 05-23-2024 End: 04-05-2025 Alcoholic beverage intake Lifetime non-drinker (finding) [facility] Start: 04-21-2023 End: 03-26-2024 History of Social function [facility] How often do you nee d to have someone help you when you read instructions, pamphlets, or other written material from your doctor or pharmacy [SILS] Sometimes [facility] Within the last year , have you been afraid of your partner or ex-partner? No [facility] Are you now , , , , never or living with a partner? [facility] How often to you hav e a drink containing alcohol? Never [facility] Do you feel stress - tense, restless, nervous, or anxious, or unable to sleep at night because your mind is troubled all the time - these days [OSQ] Not at all [facility] (I/We) worried wheth er (my/our) food would run out before (I/we) got money to buy more. Never true [facility] Start: 07-24-2023 Alcohol Comment caffeine: Yes, coffee tea [facility] Start: 01-19-2023 Gender identity Identifies as female gender (finding) [facility] Start: 10-03-2024 End: 01-08-2025 Sex Female (finding) [facility] How often do you nee d to have someone help you when you read instructions, pamphlets, or other written material from your doctor or pharmacy [SILS] Sometimes [facility] Goals Date Patient Goal Desired Activity /State Functional Status Date Assessment Result Facility 02-04-2025 Patient Health [facility] ionnaire 2 item (PHQ-2) [Reported] [facility] Clinical Notes 05-20-2021 to 04-05-2025 Prem Morales DPM - 04/05/2025 1:00 PM Vilma Ambriz MD - 02/04/2025 9:45 AM Melissa Morales DPM - 01/08/2025 9:45 AM JOHNIE Astudillo - 12/06/2024 9:45 AM EDT Note Date & Type Note Facility 04-05-2025 History of Presen t illness Narrative Images from the original note were not included. Reason for Visit Established patient: Recheck onychomycosis/Nailcare Second Complaint: Examine diabetic shoes History of Present Illness Established patient presents to clinic for debridement of elongated, mycotic toenails. Patient is not applying any anti-fungal medication to the toenails however she is applying Kenalog 0.1% cream on the toenails after she soaks in warm water. Patient has no pain to the toenails. AM glucose: 113. A1C on 02-04-2025 was 7.9. Location: nails on bilateral feet. Severity of symptoms: mild. Onset: gradual. Status: no change. Context: hard to trim, hard to reach. NAILS: thickened, discolored, elongated. Relieved by: debridement, filing down nails, clipping nails. History of ulcers/wounds: no. PCP: Conrado Ambriz. Date of Last visit: 02-04-2025 Aggravated by: shoe gear, pressure. Risk factors: diabetes. Second Complaint: Patient would like for you to look at her diabetic shoes, which she purchased from [employer], to see if the shoe can be opened up so she has more room for her toes. Review of Systems General: Chills denies. Fatigue denies. Fever denies. Night sweats denies. Endocrine: Hyperpigmentation denies. Diabetes admits. Weakness denies. Cardiovascular: Chest pain denies. Shortness of breath denies. Gastrointestinal: Constipation denies. Diarrhea denies. Nausea denies. Vomiting denies. Hematology: Anemia denies. Bleeding problems denies. Easy bruising denies. Musculoskeletal: Bone/joint symptoms admits. Leg cramps denies. Peripheral Vascular: Edema denies. Rest pain denies. Varicose veins denies. Raynaud's denies. Skin: Ulceration denies. Nail changes denies. Rash denies. Skin lesion(s) denies. Neurologic: Dizziness denies. Gait abnormality denies. Headache denies. Tingling/Numbness denies. Examination General Examination: GENERAL EXAMINATION: awake, aware of surroundings, in no acute distress. FOOT EXAM: Date of Last Foot Exam: 01/08/2025 Sensory testing performed: sensations diminished Sensory and motor testing performed: strength diminished Pedal pulse taking performed: 2+ Vascular: DORSALIS PEDIS PULSE: 2/4 bilaterally. POSTERIOR TIBIAL PULSE:RT: 1/4 and LT. 0/4. TEMPERATURE GRADIENT: warm to cool. EDEMA: Minimal bilateral lower extremity. VARICOSITIES: present bilaterally. CAPILLARY FILLING TIME(sec): capillary fill intact bilateral digits less than 3 secs. Neurologic: VIBRATORY: diminished bilaterally. SEMMES-TATYANA 5.07 MONOFILAMENT: diminished bilaterally. NEUROLOGIC: peripheral neuropathy to the bilateral lower extremity: numbess to right foot in area of right 4,5 toes and ball of foot. Tingling to right foot with touch. Patient stated in past balance is off. Uses a cane for ambulation assistance. Had previous physical therapy to improve balance and proprioception. Dermatologic: SKIN FINDINGS: skin is thin shiny atrophic dry with absent pedal hair to the bilateral lower extremity. HYPERKERATOSIS: Pre-ulcerative callus: right distal hallux - resolved. NAIL PATHOLOGY: nails 1-5 intact bilaterally. ULCER: ulcer left distal 3rd toe remains healed. Ankle / Foot: MUSCLE STRENGTH: 5-/5. Toes are weaker bilaterally. Orthopedic: FOOT MORPHOLOGY: pes plano valgus bilateral. JOINT RANGE OF MOTION: decreased to the bilateral foot first metatarsophalangeal joint. DEFORMITIES: hallux valgus bilateral, hallux limitus bilateral, hammertoes 2-5 bilateral. PAIN ELICITED WITH PALPATION OF: none today. ORTHOPEDIC: fat pad atrophy bilateral foot. SHOE GEAR EVALUATION: casual lace up shoes and OTC insoles. Nail Pathology: Right Foot: 1 (great toe) Long, non-dystrophic. 2 Long, Thick, Crumbly, Deformed, Discolored, Brittle, Dystrophic. 3 Long, Thick, Crumbly, Deformed, Discolored, Brittle, Dystrophic. 4 Long, non-dystrophic. 5 Long, Thick, Crumbly, Deformed, Discolored, Brittle, Dystrophic. Nail Pathology: Left Foot: 1 (great toe) Long, Thick, Crumbly, Deformed, Discolored, Brittle, Dystrophic - painful 2 Long, Thick, Crumbly, Deformed, Discolored, Brittle, Dystrophic. 3 Long, Thick, Crumbly, Deformed, Discolored, Brittle, Dystrophic. 4 Long, non-dystrophic. 5Long, non-dystrophic Modifier: - Q9. Assessments 1. Dermatophytosis of nail - B35.1, Elongated, mycotic toenails 2,3,5 right and 1,2,3 left 2. Pain bilateral hallux ingrown toenail without infect 3. Other specified disease of nail - L60.8, Elongated, non-mycotic toenails 1,4, right and 4,5 left 4. Pre-ulcerative calluses - L84, Right distal hallux - Resolved 5. DM neuro manif type II - E11.49 6. Localized edema - R60.0 7. Neuropathic pain - M79.2 8. Hammertoe of right foot - M20.41 9. Hammertoe of left foot - M20.42 10. Impaired ambulation - R26.2 11. Risk for falls - Z91.81 12. Balance problem - R26.89 13. Fat pad atrophy of foot - R29.898 14. 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 Hallux valgus of left foot - M20.12 16. Hallux limitus of right foot - M20.5X1 17. Hallux limitus of left foot - M20.5X2 18. Acquired pes planovalgus of right foot - M21.41 19. Acquired pes planovalgus of left foot - M21.42 20. Asymptomatic varicose veins - I83.90 Treatment Dermatophytosis of nail 1. Patient seen today for follow up examination. Patient has pain to left hallux medial nail border. 2. I debrided elongated, onychomycotic toenails 2,3,5 right and 1,2,3 left via manual and mechanical means. 3. Patient should wash and dry bilateral foot twice a day and start application of topical Tolcylen twice a day to all ten toenails until full resolution of onychomycosis. Patient declined purchase of Tolcylen today. 4. Patient should seek assistance with debridement of toenails at home with rosettey board, not using same surface twice, to avoid recontamination. 5. Reappoint 63 days. Pain left toenail 1. Patient seen today for follow up examination. Patient has pain to left hallux medial nail border. 2. I debrided elongated, onychomycotic toenails 2,3,5 right and 1,2,3 left via manual and mechanical means. 3. Patient should wash and dry bilateral foot twice a day and start application of topical Tolcylen twice a day to all ten toenails until full resolution of onychomycosis. Patient declined purchase of Tolcylen today. 4. Patient should seek assistance with debridement of toenails at home with emery board, not using same surface twice, to avoid recontamination. 5. Reappoint 63 days. Other specified disease of nail 1. Patient was seen for followup examination. 2. I debrided elongated, non-dystrophic toenails 1,4 right and 4,5 left via manual and mechanical means. 3. Reappoint in 63 days. DM neuro manif type II 1. Patient advised to always maintain proper diabetic control. 2. Patient advised to wash and dry bilateral foot once daily and apply a good moisturizing cream to bilateral lower extremity, except for in between toes, post bathing to keep skin from becoming too dry. 3. Patient advised to perform daily foot inspections and observe for any signs of skin breakdown. 4. Patient should continue to take Gabapentin 300 mg, one capsule twice a day, for treatment of neuropathy symptoms. 5. Patient should continue to wear diabetic shoes and insoles for all weightbearing activity. 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 I DO NOT THINK SHE CAN MAKE MORE ROOM TO THE SHOE WITHOUT THINNING OUT HER FULL-LENGTH CUSTOM FOOT ORTHOTIC WHICH WOULD BE ILL ADVISED IN MY OPINION. documented in this encounter [facility] 02-04-2025 History of Presen t illness Narrative Images from the original note were not included. Subjective Patient ID: Elizabeth Ramirez is a 89 y.o. female who presents for No chief complaint on file.. Elizabeth presents today for her diabetes F/U. Her last A1c was in November and was 7.3 She is also having sinus drainage, headache. Burning with urination for the last month. Current Outpatient Medications on File Prior to Visit Medication Sig Dispense Refill amLODIPine (Norvasc) 5 MG tablet Take 1 tablet (5 mg) by mouth Daily 100 tablet 3 b complex vitamins capsule Take 1 capsule by mouth in the morning. benazepril (Lotensin) 20 MG tablet TAKE 1 TABLET DAILY 90 tablet 3 Calcium 250 MG capsule Take 1 tablet by mouth Daily cholecalciferol (Vitamin D-3) 25 MCG (1000 UT) capsule Take 1,000 Units by mouth Daily gabapentin (Neurontin) 300 MG capsule Take 1 capsule (300 mg) by mouth in the morning and 1 capsule (300 mg) before bedtime. 200 capsule 3 Januvia 100 MG tablet TAKE ONE TABLET BY MOUTH EVERY DAY 90 tablet 2 levothyroxine (Synthroid, Levoxyl) 50 MCG tablet TAKE 1 TABLET DAILY 90 tablet 3 lubiprostone (Amitiza) 8 MCG capsule Take 8 mcg by mouth in the morning and 8 mcg in the evening. Take with meals. meloxicam (Mobic) 7.5 MG tablet TAKE 1 TABLET DAILY 90 tablet 3 omeprazole (PriLOSEC) [address] capsule Take 1 capsule (40 mg) by mouth in the morning. Take before meals. Do not crush or chew.. 90 capsule 3 rOPINIRole (Requip) 1 MG tablet TAKE ONE-HALF (1/2) TABLET DAILY 45 tablet 3 triamcinolone (Kenalog) 0.1 % cream Apply topically 2 (two) times a day 454 g 1 [DISCONTINUED] amoxicillin (Amoxil) 500 MG capsule Take 1 capsule (500 mg) by mouth in the morning and 1 capsule (500 mg) in the evening and 1 capsule (500 mg) before bedtime. Do all this for 7 days. 21 capsule 0 [DISCONTINUED] glipiZIDE (Glucotrol) 5 MG tablet Take 1 tablet (5 mg) by mouth in the morning and 1 tablet (5 mg) in the evening. Take before meals. 200 tablet 3 No current facility-administered medications on file prior to visit. I have reviewed and reconciled the history and medication list with the patient today. Allergies Allergen Reactions Hylan G-F 20 Swelling Other Reaction(s): Edema Metformin Diarrhea Moxifloxacin Hives Simvastatin GI intolerance and Nausea And Vomiting Ciprofloxacin Rash Ciprofloxacin Hcl Rash Temazepam Rash Other Reaction(s): rash, sore mouth Wound Dressing Adhesive Rash Social History Tobacco Use Smoking status: Never Smokeless tobacco: Never Vaping Use Vaping status: Never Used Substance Use Topics Alcohol use: Never Comment: caffeine: Yes, coffee tea Drug use: Never Family History Problem Relation Name Age of Onset Stroke Mother Heart disease Father Leukemia Sister Melanoma Neg Hx Past Medical History: Diagnosis Date Arthritis Back problem Diverticulosis Ganglion cyst Hearing loss of right ear, unspecified hearing loss type History of being hospitalized 06/2015 3 days for surgery History of sinus problem Hypertension (CMS/HCC) Knee problem Macular degeneration Onychomycosis Osteoporosis (CMS/HCC) Rotator cuff tear, left Rotator cuff tear, right Sepsis secondary to UTI (CMS/HCC) 04/30/2022 Tear of rotator cuff 02/02/2023 Type 2 diabetes mellitus Visual impairment w/corrective lenses Past Surgical History: Procedure Laterality Date BACK SURGERY 07/28/[address] Joel BUCCAL MASS EXCISION Right CHOLECYSTECTOMY COLECTOMY [address] Marie COLONOSCOPY COLONOSCOPY W/ POLYPECTOMY 05/20/2021 COLONOSCOPY W/ POLYPECTOMY 05/23/2024 GANGLION CYST EXCISION 2001 Dr. Martini HYSTERECTOMY KNEE SURGERY Left Arthroscopy Knee- Dr. José LUMBAR TRANSFORAMINAL EPIDURAL STEROID INJECTION 11/18/2020 LUMBAR TRANSFORAMINAL EPIDURAL STEROID INJECTION 12/30/2020 NERVE BLOCK Bilateral 04/22/2020 L2-L5 Nerve Blocks NERVE BLOCK Bilateral 05/13/2020 L2-L4 Nerve Blocks OTHER SURGICAL HISTORY Right R/O buccal mass --13 Dr. Williamson RADIOFREQUENCY ABLATION Left 07/08/2020 L2-L4 RFA RADIOFREQUENCY ABLATION Right 06/26/2020 L2-L4 RFA ROTATOR CUFF REPAIR Left 2006 SHOULDER OPEN ROTATOR CUFF REPAIR Right 2001 TUMOR EXCISION Left Fatty tumor excised shoulder Visit Vitals BP 138/76 Pulse 87 Resp 17 Ht 5' 4 Wt 142 lb SpO2 96% BMI 24.37 kg/m Smoking Status Never BSA 1.71 m Review of Systems Objective Physical Exam Vitals reviewed. Constitutional: Appearance: Normal appearance. HENT: Head: Normocephalic and atraumatic. Right Ear: External ear normal. Left Ear: External ear normal. Nose: Congestion and rhinorrhea present. Mouth/Throat: Mouth: Mucous membranes are moist. Pharynx: Oropharyngeal exudate and posterior oropharyngeal erythema present. Eyes: Conjunctiva/sclera: Conjunctivae normal. Pupils: Pupils are equal, round, and reactive to light. Cardiovascular: Rate and Rhythm: Normal rate and regular rhythm. Pulses: Normal pulses. Heart sounds: Normal heart sounds. Pulmonary: Effort: Pulmonary effort is normal. Breath sounds: Normal breath sounds. Abdominal: General: Bowel sounds are normal. Palpations: Abdomen is soft. Musculoskeletal: Right shoulder: Deformity and tenderness present. Decreased range of motion. Decreased strength. Cervical back: Normal range of motion and neck supple. Skin: General: Skin is warm and dry. Comments: Bilateral feet with noted bunions, no redness, no open areas, no calloused areas, thickened nails bilaterally, nails recently trimmed, pain at the first mtp joint and over the intermetatarsal ligament area, rates the pain at 5/10 most days. States this pain has worsened. It is a burning/tingling type of pain. Neurological: General: No focal deficit present. Mental Status: She is alert and oriented to person, place, and time. Psychiatric: Mood and Affect: Mood normal. Behavior: Behavior normal. Thought Content: Thought content normal. Judgment: Judgment normal. No visits with results within 1 Day(s) from this visit. Latest known visit with results is: Office Visit on 11/29/2024 Component Date Value Ref Range Status Hemoglobin A1C 11/29/2024 7.3 Final Assessment/Plan Diagnoses and all orders for this visit: Type 2 diabetes mellitus with other neurologic complication, without long-term current use of insulin - POCT glycosylated hemoglobin (Hb A1C) docked device - POCT Urinalysis dipstick - Comprehensive metabolic panel; Future - CBC and differential Acute non-recurrent frontal sinusitis - Comprehensive metabolic panel; Future - CBC and differential - amoxicillin (Amoxil) 500 MG capsule; Take 1 capsule (500 mg) by mouth in the morning and 1 capsule (500 mg) in the evening and 1 capsule (500 mg) before bedtime. Do all this for 7 days. Mixed hyperlipidemia (CMS/HCC) Acquired hypothyroidism (CMS/HCC) - TSH; Future Type 2 diabetes mellitus with peripheral neuropathy (CMS/HCC) - glipiZIDE (Glucotrol) 5 MG tablet; Take 1 tablet (5 mg) by mouth Daily with meals AND 2 tablets (10 mg) in the evening. Take with meals. Follow up in about 3 months (around 05/07/2025). documented in this encounter [facility] 01-08-2025 History of Presen t illness Narrative Images from the original note were not included. Reason for Visit Established patient: Recheck onychomycosis/nailcare History of Present Illness Established patient presents to clinic for debridement of elongated, mycotic toenails. Patient is not applying any anti-fungal medication to the toenails. Patient has pain to the LT hallux medial nail border. She was soaking toe in epsom salts and applying JULIO CÉSAR to the painful nail border. Location: nails on bilateral feet. Severity of symptoms: mild. Onset: gradual. Status: no change. Context: hard to trim, hard to reach. NAILS: thickened, discolored, elongated. Relieved by: debridement, filing down nails, clipping nails. History of ulcers/wounds: no. PCP: Conrado Ambriz. Date of Last visit: 11-29-2024 Aggravated by: shoe gear, pressure. Risk factors: diabetes. AM glucose: 147. A1C on 11-29-2024 was 7.3. Review of Systems General: Chills denies. Fatigue denies. Fever denies. Night sweats denies. Endocrine: Hyperpigmentation denies. Diabetes admits. Weakness denies. Cardiovascular: Chest pain denies. Shortness of breath denies. Gastrointestinal: Constipation denies. Diarrhea denies. Nausea denies. Vomiting denies. Hematology: Anemia denies. Bleeding problems denies. Easy bruising denies. Musculoskeletal: Bone/joint symptoms admits. Leg cramps denies. Peripheral Vascular: Edema denies. Rest pain denies. Varicose veins denies. Raynaud's denies. Skin: Ulceration denies. Nail changes denies. Rash denies. Skin lesion(s) denies. Neurologic: Dizziness denies. Gait abnormality denies. Headache denies. Tingling/Numbness denies. Examination General Examination: GENERAL EXAMINATION: awake, aware of surroundings, in no acute distress. FOOT EXAM: Date of Last Foot Exam: 01/08/2025 Sensory testing performed: sensations diminished Sensory and motor testing performed: strength diminished Pedal pulse taking performed: 2+ Vascular: DORSALIS PEDIS PULSE: 2/4 bilaterally. POSTERIOR TIBIAL PULSE:RT: 1/4 and LT. 0/4. TEMPERATURE GRADIENT: warm to cool. EDEMA: Minimal bilateral lower extremity. VARICOSITIES: present bilaterally. CAPILLARY FILLING TIME(sec): capillary fill intact bilateral digits less than 3 secs. Neurologic: VIBRATORY: diminished bilaterally. SEMMES-TATYANA 5.07 MONOFILAMENT: diminished bilaterally. NEUROLOGIC: peripheral neuropathy to the bilateral lower extremity: numbess to right foot in area of right 4,5 toes and ball of foot. Tingling to right foot with touch. Patient stated in past balance is off. Uses a cane for ambulation assistance. Had previous physical therapy to improve balance and proprioception. Dermatologic: SKIN FINDINGS: skin is thin shiny atrophic dry with absent pedal hair to the bilateral lower extremity. HYPERKERATOSIS: Pre-ulcerative callus: right distal hallux - resolved. NAIL PATHOLOGY: nails 1-5 intact bilaterally. ULCER: ulcer left distal 3rd toe remains healed. Ankle / Foot: MUSCLE STRENGTH: 5-/5. Toes are weaker bilaterally. Orthopedic: FOOT MORPHOLOGY: pes plano valgus bilateral. JOINT RANGE OF MOTION: decreased to the bilateral foot first metatarsophalangeal joint. DEFORMITIES: hallux valgus bilateral, hallux limitus bilateral, hammertoes 2-5 bilateral. PAIN ELICITED WITH PALPATION OF: none today. ORTHOPEDIC: fat pad atrophy bilateral foot. SHOE GEAR EVALUATION: casual lace up shoes and OTC insoles. Nail Pathology: Right Foot: 1 (great toe) Long, non-dystrophic. 2 Long, Thick, Crumbly, Deformed, Discolored, Brittle, Dystrophic. 3 Long, Thick, Crumbly, Deformed, Discolored, Brittle, Dystrophic. 4 Long, non-dystrophic. 5 Long, Thick, Crumbly, Deformed, Discolored, Brittle, Dystrophic. Nail Pathology: Left Foot: 1 (great toe) Long, Thick, Crumbly, Deformed, Discolored, Brittle, Dystrophic - painful 2 Long, Thick, Crumbly, Deformed, Discolored, Brittle, Dystrophic. 3 Long, Thick, Crumbly, Deformed, Discolored, Brittle, Dystrophic. 4 Long, non-dystrophic. 5Long, non-dystrophic Modifier: - Q9. Assessments 1. Dermatophytosis of nail - B35.1, Elongated, mycotic toenails 2,3,5 right and 1,2,3 left 2. Pain bilateral hallux ingrown toenail without infect 3. Other specified disease of nail - L60.8, Elongated, non-mycotic toenails 1,4, right and 4,5 left 4. Pre-ulcerative calluses - L84, Right distal hallux - Resolved 5. DM neuro manif type II - E11.49 6. Localized edema - R60.0 7. Neuropathic pain - M79.2 8. Hammertoe of right foot - M20.41 9. Hammertoe of left foot - M20.42 10. Impaired ambulation - R26.2 11. Risk for falls - Z91.81 12. Balance problem - R26.89 13. Fat pad atrophy of foot - R29.898 14. 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 Hallux valgus of left foot - M20.12 16. Hallux limitus of right foot - M20.5X1 17. Hallux limitus of left foot - M20.5X2 18. Acquired pes planovalgus of right foot - M21.41 19. Acquired pes planovalgus of left foot - M21.42 20. Asymptomatic varicose veins - I83.90 Treatment Dermatophytosis of nail 1. Patient seen today for follow up examination. Patient has pain to left hallux medial nail border. 2. I debrided elongated, onychomycotic toenails 2,3,5 right and 1,2,3 left via manual and mechanical means. 3. Patient should wash and dry bilateral foot twice a day and start application of topical Tolcylen twice a day to all ten toenails until full resolution of onychomycosis. Patient declined purchase of Tolcylen today. 4. Patient should seek assistance with debridement of toenails at home with emery board, not using same surface twice, to avoid recontamination. 5. Reappoint 63 days. Pain left toenail 1. Patient seen today for follow up examination. Patient has pain to left hallux medial nail border. 2. I debrided elongated, onychomycotic toenails 2,3,5 right and 1,2,3 left via manual and mechanical means. 3. Patient should wash and dry bilateral foot twice a day and start application of topical Tolcylen twice a day to all ten toenails until full resolution of onychomycosis. Patient declined purchase of Tolcylen today. 4. Patient should seek assistance with debridement of toenails at home with emery board, not using same surface twice, to avoid recontamination. 5. Reappoint 63 days. Other specified disease of nail 1. Patient was seen for followup examination. 2. I debrided elongated, non-dystrophic toenails 1,4 right and 4,5 left via manual and mechanical means. 3. Reappoint in 63 days. DM neuro manif type II 1. Patient advised to always maintain proper diabetic control. 2. Patient advised to wash and dry bilateral foot once daily and apply a good moisturizing cream to bilateral lower extremity, except for in between toes, post bathing to keep skin from becoming too dry. 3. Patient advised to perform daily foot inspections and observe for any signs of skin breakdown. 4. Patient should continue to take Gabapentin 300 mg, one capsule twice a day, for treatment of neuropathy symptoms. 5. Patient should continue to wear diabetic shoes and insoles for all weightbearing activity. documented in this encounter [facility] 12-06-2024 History of Presen t illness Narrative Images from the original note were not included. HISTORY OF PRESENT ILLNESS: EST PT Elizabeth Ramirez is an 89 y.o. @ female. (EST PT W/ REI) (DR. AMBRIZ REFERRAL) (NEW PROBLEM) - (R) SHOULDER DISCOMFORT x2 WKS (~11/22/24) ; NKI XRAY TODAY 12/06/24 IN EPIC MELOXICAM 7.5MG BID (DR. AMBRIZ) (FOR ARTHRITIS) NOTES DIFFUSE DISCOMFORT INTO UPPER ARM. NKI. NOTED INTERMITTENT NERVE TWINGES. LIMITED ROM - NOTES HER SHOULDER HAS ALWAYS BEEN FROZEN WITH ELEVATION. ADMITS SYMPTOMS HAVE IMPROVED SINCE ~2 WKS AGO. DENIES SWELLING. DENIES NUMBNESS. ADMITS GENERALIZED TINGLING. ADMITS WEAKNESS. TYL PRN. MELOXICAM - BID. ADMITS HEATING - WITH RELIEF. NO TOPICALS. HX (R) ROTATOR CUFF REPAIR 2001 (~23 YRS) @[facility] [place] ALLERGIES: Allergies Allergen Reactions Hylan G-F 20 Swelling Other Reaction(s): Edema Metformin Diarrhea Moxifloxacin Hives Simvastatin GI intolerance and Nausea And Vomiting Ciprofloxacin Rash Ciprofloxacin Hcl Rash Temazepam Rash Other Reaction(s): rash, sore mouth Wound Dressing Adhesive Rash HOME MEDICATIONS: Current Outpatient Medications Medication Instructions amLODIPine (NORVASC) 5 mg, Oral, Daily b complex vitamins capsule 1 capsule, Daily benazepril (LOTENSIN) 20 mg, Oral, Daily Calcium 250 MG capsule 1 tablet, Daily cholecalciferol (VITAMIN D-3) 1,000 Units, Daily gabapentin (NEURONTIN) 300 mg, Oral, 2 times daily glipiZIDE (GLUCOTROL) 5 mg, 2 times daily before meals Januvia 100 mg, Oral, Daily levothyroxine (SYNTHROID, LEVOXYL) 50 mcg, Oral, Daily lubiprostone (AMITIZA) 8 mcg, 2 times daily with meals meloxicam (MOBIC) 7.5 mg, Oral, Daily omeprazole (PRILOSEC) 40 mg, Oral, Daily before breakfast, Do not crush or chew. rOPINIRole (REQUIP) 0.5 mg, Oral, Daily triamcinolone (Kenalog) 0.1 % cream Topical, 2 times daily PHYSICAL EXAM: Shoulder Musculoskeletal Exam Inspection Right Right shoulder inspection is normal. Ecchymosis: none Peripheral edema: none Atrophy: moderate Masses: none Prior incision: anterolateral Incision: well-healed Palpation Right Crepitus: moderate Increased warmth: none Tenderness: present Anterior shoulder: mild Posterior shoulder: mild Clavicle: none AC joint: mild Greater tuberosity: none Trapezius: none Medial scapula: none Superior pole of scapula: none Inferior pole of scapula: none Bicipital groove: none Proximal biceps: none Distal biceps: none Lateral arm: none Elbow: none Range of Motion Right Active ROM: abnormal and pain. Passive ROM: abnormal and pain. Active forward elevation: 30. Passive forward elevation: 90. Shoulder active abduction: 30. Passive abduction: 70. Internal rotation: side. Range of motion additional comments: LIMITED ROM CONSISTENT WITH SHOULDER ARTHRITIS Strength Right External rotation: 3/5. External rotation is affected by pain. Internal rotation: 5/5. Internal rotation is not affected by pain. Abduction: 3/5. Abduction is affected by pain. Biceps: 5/5. Biceps are not affected by pain. Triceps: 5/5. Triceps are not affected by pain. Neurovascular Right Radial pulse: normal and 2+ Capillary refill: <3 sec Axillary nerve sensory distribution: normal Scapula Right Right shoulder scapula is normal. Position: normal Winging: none Special Tests Right Rotator Cuff Signs Lui test: positive Biceps/bret Signs Clicking/popping: positive General Constitutional: appears stated age Labored breathing: no Neurological: alert and oriented x3 Skin: intact Physical Exam Vitals: There is no height or weight on file to calculate BMI. Tobacco Use: Low Risk (12/06/2024) Patient History Smoking Tobacco Use: Never Smokeless Tobacco Use: Never Passive Exposure: Not on file Alcohol Use: Not At Risk (04/21/2023) AUDIT-C Frequency of Alcohol Consumption: Never Average Number of Drinks: Patient does not drink Frequency of Binge Drinking: Never IMAGING: XR shoulder 2+ views right Imaging Result: Right Shoulder AP and Scap Y No acute fracture or dislocation Bone Structures clavicle and scapula and humeral head appear osteopenic with superior migration of humeral head, Multiple rotator cuff anchors noted within the humeral head. Severe Glenohumeral joint arthritis with flattening of articular surface. Soft tissues and limited visualized lung owens unremarkable, suspect mild joint effusion Impression: Severe right shoulder arthritis with likely rotator cuff arthropathy. Procedures Orders Placed This Encounter Procedures XR shoulder 2+ views right Order Specific Question: Reason for exam: Answer: Pain ASSESSMENT: ICD-10-CM 1. Acute pain of right shoulder M25.511 2. Right shoulder pain, unspecified chronicity M25.511 XR shoulder 2+ views right 3. 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 X-ray discussed at bedside shows significant degenerative changes, flattening of the humeral head, and joint changes consistent with likely rotator cuff arthropathy. She is right-hand dominant and notes her left shoulder is functioning well. She has been living with limited range of motion for many years. The increase in pain caused her to mention it to her family doctor and make an appointment. The pain has since subsided, and she feels her symptoms are baseline. Treatment plan: Treatment options discussed include observation, an intra-articular cortisone injection, or surgical intervention for reverse total shoulder. She feels she can live with her current symptoms but would like to call for an injection if symptoms flare up. She declines surgery due to her age and has modified her lifestyle to accommodate her shoulder limitations. She verbally understands the degenerative changes in her shoulder and the likely symptoms from arthritis with overuse. Clinical decision making: She has macular degeneration and does not see well. Currently taking meloxicam for arthritis.. also present in her knee.. would like cortisone injection if pain symptoms return with risk and benefits of injection discussed. She and her son will call if she has increased pain for an intra-articular injection pending reevaluation. Follow-up: She was thankful for the time spent at bedside and had no further concerns or questions. Questions answered in laymen terms at the bedside. The diagnosis, home exercise plan and any ongoing restrictions/ recommendations reviewed. If unable to be reached in office, I recommend evaluation at nearest Emergency Room if any symptoms worsened or new symptoms develop for requiring urgent evaluation. documented in this encounter [facility] 11-29-2024 History of Presen t illness Narrative Images from the original note were not included. HPI would like to have ears and chest checked Additional comments: Pt finished abx feels better but would like ears and chest checked again Last edited by Hollie Jimenez LPN on 11/29/2024 10:56 AM. Subjective Patient ID: Elizabeth Ramirez is a 89 y.o. female who presents for Diabetes, Shoulder Injury, and would like to have ears and chest checked (Pt finished abx feels better but would like ears and chest checked again). Diabetes Mellitus Patient presents for follow up of diabetes. Current symptoms include: none. Patient denies foot ulcerations, hypoglycemia , polydipsia, polyuria, and vomiting. Evaluation to date has included: fasting blood sugar, fasting lipid panel, and hemoglobin A1C. Home sugars: BGs range between 130 and 140 Has right shoulder pain- this has been an ongoing problem had surgery 25 years ago pain has been worsening over last week pain worsens laying on right side or trying to move right arm Diabetes Shoulder Injury GERD She complains of coughing. Med Refill Associated symptoms include coughing. Psoriasis Sinusitis Associated symptoms include coughing. Hypertension Current Outpatient Medications on File Prior to Visit Medication Sig Dispense Refill amLODIPine (Norvasc) 5 MG tablet TAKE 1 TABLET DAILY 100 tablet 3 b complex vitamins capsule Take 1 capsule by mouth in the morning. benazepril (Lotensin) 20 MG tablet Take 1 tablet (20 mg) by mouth Daily 90 tablet 3 Calcium 250 MG capsule Take 1 tablet by mouth Daily cholecalciferol (Vitamin D-3) 25 MCG (1000 UT) capsule Take 1,000 Units by mouth Daily gabapentin (Neurontin) 300 MG capsule Take 1 capsule (300 mg) by mouth in the morning and 1 capsule (300 mg) before bedtime. 180 capsule 3 glipiZIDE (Glucotrol) 5 MG tablet Take 5 mg by mouth in the morning and 5 mg in the evening. Take before meals. Januvia 100 MG tablet TAKE ONE TABLET BY MOUTH EVERY DAY 90 tablet 2 levothyroxine (Synthroid, Levoxyl) 50 MCG tablet Take 1 tablet (50 mcg) by mouth Daily 100 tablet 3 lubiprostone (Amitiza) 8 MCG capsule Take 8 mcg by mouth in the morning and 8 mcg in the evening. Take with meals. meloxicam (Mobic) 7.5 MG tablet Take 1 tablet (7.5 mg) by mouth Daily 90 tablet 3 omeprazole (PriLOSEC) [address] capsule Take 1 capsule (40 mg) by mouth in the morning. Take before meals. Do not crush or chew.. 90 capsule 3 rOPINIRole (Requip) 1 MG tablet Take 0.5 tablets (0.5 mg) by mouth Daily 45 tablet 0 [DISCONTINUED] triamcinolone (Kenalog) 0.1 % cream APPLY TO TRUNK,ARMS, AND LEGS, TWICE A DAY No current facility-administered medications on file prior to visit. I have reviewed and reconciled the history and medication list with the patient today. Allergies Allergen Reactions Hylan G-F 20 Swelling Other Reaction(s): Edema Metformin Diarrhea Moxifloxacin Hives Simvastatin GI intolerance and Nausea And Vomiting Ciprofloxacin Rash Ciprofloxacin Hcl Rash Temazepam Rash Other Reaction(s): rash, sore mouth Wound Dressing Adhesive Rash Social History Tobacco Use Smoking status: Never Smokeless tobacco: Never Vaping Use Vaping status: Never Used Substance Use Topics Alcohol use: Never Comment: caffeine: Yes, coffee tea Drug use: Never Family History Problem Relation Name Age of Onset Stroke Mother Heart disease Father Leukemia Sister Melanoma Neg Hx Past Medical History: Diagnosis Date Arthritis Back problem Diverticulosis Ganglion cyst Hearing loss of right ear, unspecified hearing loss type History of being hospitalized 06/2015 3 days for surgery History of sinus problem Hypertension (CMS/HCC) Knee problem Macular degeneration Onychomycosis Osteoporosis (CMS/HCC) Rotator cuff tear, left Rotator cuff tear, right Sepsis secondary to UTI ([facility]) 04/30/2022 Tear of rotator cuff 02/02/2023 Type 2 diabetes mellitus Visual impairment w/corrective lenses Past Surgical History: Procedure Laterality Date BACK SURGERY 07/28/[address] Joel BUCCAL MASS EXCISION Right CHOLECYSTECTOMY COLECTOMY [address] Marie COLONOSCOPY COLONOSCOPY W/ POLYPECTOMY 05/20/2021 COLONOSCOPY W/ POLYPECTOMY 05/23/2024 GANGLION CYST EXCISION 2001 Dr. Martini HYSTERECTOMY KNEE SURGERY Left Arthroscopy Knee- Dr. José LUMBAR TRANSFORAMINAL EPIDURAL STEROID INJECTION 11/18/2020 LUMBAR TRANSFORAMINAL EPIDURAL STEROID INJECTION 12/30/2020 NERVE BLOCK Bilateral 04/22/2020 L2-L5 Nerve Blocks NERVE BLOCK Bilateral 05/13/2020 L2-L4 Nerve Blocks OTHER SURGICAL HISTORY Right R/O buccal mass -- Dr. Williamson RADIOFREQUENCY ABLATION Left 07/08/2020 L2-L4 RFA RADIOFREQUENCY ABLATION Right 06/26/2020 L2-L4 RFA ROTATOR CUFF REPAIR Left 2006 SHOULDER OPEN ROTATOR CUFF REPAIR Right 2001 TUMOR EXCISION Left Fatty tumor excised shoulder Visit Vitals BP 132/70 Pulse 79 Ht 5' 4 Wt 141 lb SpO2 96% BMI 24.20 kg/m Smoking Status Never BSA 1.7 m Review of Systems Respiratory: Positive for cough. Objective Physical Exam Vitals reviewed. Constitutional: Appearance: Normal appearance. HENT: Head: Normocephalic and atraumatic. Right Ear: External ear normal. Left Ear: External ear normal. Nose: Congestion and rhinorrhea present. Mouth/Throat: Mouth: Mucous membranes are moist. Pharynx: Oropharyngeal exudate and posterior oropharyngeal erythema present. Eyes: Conjunctiva/sclera: Conjunctivae normal. Pupils: Pupils are equal, round, and reactive to light. Cardiovascular: Rate and Rhythm: Normal rate and regular rhythm. Pulses: Normal pulses. Heart sounds: Normal heart sounds. Pulmonary: Effort: Pulmonary effort is normal. Breath sounds: Normal breath sounds. Abdominal: General: Bowel sounds are normal. Palpations: Abdomen is soft. Musculoskeletal: Right shoulder: Deformity and tenderness present. Decreased range of motion. Decreased strength. Cervical back: Normal range of motion and neck supple. Skin: General: Skin is warm and dry. Comments: Bilateral feet with noted bunions, no redness, no open areas, no calloused areas, thickened nails bilaterally, nails recently trimmed, pain at the first mtp joint and over the intermetatarsal ligament area, rates the pain at 5/10 most days. States this pain has worsened. It is a burning/tingling type of pain. Neurological: General: No focal deficit present. Mental Status: She is alert and oriented to person, place, and time. Psychiatric: Mood and Affect: Mood normal. Behavior: Behavior normal. Thought Content: Thought content normal. Judgment: Judgment normal. Office Visit on 11/29/2024 Component Date Value Ref Range Status Hemoglobin A1C 11/29/2024 7.3 Final Assessment/Plan Diagnoses and all orders for this visit: Acute non-recurrent frontal sinusitis - azithromycin (Zithromax) 250 MG tablet; Take 2 tablets (500 mg) by mouth Daily for 1 day, THEN 1 tablet (250 mg) Daily for 4 days. Type 2 diabetes mellitus with other neurologic complication, without long-term current use of insulin - POCT Glycated hemoglobin, total Psoriasis - triamcinolone (Kenalog) 0.1 % cream; Apply topically 2 (two) times a day Primary osteoarthritis of right shoulder - Ambulatory referral to Orthopaedic Surgery; Future Follow up in about 3 months (around 02/28/2025) for Routine F/U. documented in this encounter [facility] 11-14-2024 Evaluation note Diagnosis Onset Date Resolution Chronic GERD acute November 14, 2024 1:45pm Diarrhea acute November 14 1:45pm Incontinence acute November 14, 2024 1:45pm Irritable bowel syndrome with constipation acute November 14, 2024 1:45pm [facility] Work Phone: [phone]) 465-533702-27-2025 History of Present illness Narrative* Adonay Diop NP - 10/25/2024 1:00 PM EST Images from the original note were not included. Subjective Patient ID: Elizabeth Ramirez is a 89 y.o. female who presents for Sinusitis, DM Foot Care, and Night Sweats. Sinus Pain Patient complains of cough, headaches, post nasal drip, sinus pressure, sneezing, and sore throat. Onset of symptoms was 2 weeks ago. Symptoms have been stable since that time. Patient is non-smoker. Pt needs foot exam for her diabetic shoes Pt states she has night sweats a few times a week over the last month Sinusitis Associated symptoms include congestion, ear pain and a sore throat. Current Outpatient Medications on File Prior to Visit Medication Sig Dispense Refill amLODIPine (Norvasc) 5 MG tablet TAKE 1 TABLET DAILY 100 tablet 3 b complex vitamins capsule Take 1 capsule by mouth in the morning. benazepril (Lotensin) 20 MG tablet Take 1 tablet (20 mg) by mouth Daily 90 tablet 3 Calcium 250 MG capsule Take 1 tablet by mouth Daily cholecalciferol (Vitamin D-3) 25 MCG (1000 UT) capsule Take 1,000 Units by mouth Daily gabapentin (Neurontin) 300 MG capsule Take 1 capsule (300 mg) by mouth in the morning and 1 capsule(300 mg) before bedtime. 180 capsule 3 glyBURIDE (Diabeta) 5 MG tablet Take 1 tablet (5 mg) by mouth in the morning and 1 tablet (5 mg) inthe evening. Take with meals. 180 tablet 3 Januvia 100 MG tablet TAKE ONE TABLET BY MOUTH EVERY DAY 90 tablet 2 levothyroxine (Synthroid, Levoxyl) 50 MCG tablet Take 1 tablet (50 mcg) by mouth Daily 100 tablet 3 lubiprostone (Amitiza) 8 MCG capsule Take 8 mcg by mouth in the morning and 8 mcg in the evening. Take with meals. meloxicam (Mobic) 7.5 MG tablet Take 1 tablet (7.5 mg) by mouth Daily 90 tablet 3 omeprazole (PriLOSEC) [address] capsule Take 1 capsule (40 mg) by mouth in the morning. Take before meals. Do not crush or chew.. 90 capsule 3 rOPINIRole (Requip) 1 MG tablet Take 1 tablet (1 mg) by mouth at bedtime 90 tablet 3 triamcinolone (Kenalog) 0.1 % cream APPLY TO TRUNK,ARMS, AND LEGS, TWICE A DAY No current facility-administered medications on file prior to visit. I have reviewed and reconciled the history and medication list with the patient today. Allergies Allergen Reactions Hylan G-F 20 Swelling Other Reaction(s): Edema Metformin Diarrhea Moxifloxacin Hives Simvastatin GI intolerance and Nausea And Vomiting Ciprofloxacin Rash Ciprofloxacin Hcl Rash Temazepam Rash Other Reaction(s): rash, sore mouth Wound Dressing Adhesive Rash Social History Tobacco Use Smoking status: Never Smokeless tobacco: Never Vaping Use Vaping status: Never Used Substance Use Topics Alcohol use: Never Comment: caffeine: Yes, coffee tea Drug use: Never Family History Problem Relation Name Age of Onset Stroke Mother Heart disease Father Leukemia Sister Melanoma Neg Hx Past Medical History: Diagnosis Date Arthritis Back problem Diverticulosis Ganglion cyst Hearing loss of right ear, unspecified hearing loss type History of being hospitalized 06/2015 3 days for surgery History of sinus problem Hypertension (CMS/HCC) Knee problem Macular degeneration Onychomycosis Osteoporosis ([facility]/HCC) Rotator cuff tear, left Rotator cuff tear, right Sepsis secondary to UTI (CMS/HCC) 04/30/2022 Tear of rotator cuff 02/02/2023 Type 2 diabetes mellitus ([facility]) Visual impairment w/corrective lenses Past Surgical History: Procedure Laterality Date BACK SURGERY 07/28/[address] Joel BUCCAL MASS EXCISION Right CHOLECYSTECTOMY COLECTOMY [address] Marie COLONOSCOPY COLONOSCOPY W/ POLYPECTOMY 05/20/2021 COLONOSCOPY W/ POLYPECTOMY 05/23/2024 GANGLION CYST EXCISION 2001 Dr. Martini HYSTERECTOMY KNEE SURGERY Left Arthroscopy Knee- Dr. José LUMBAR TRANSFORAMINAL EPIDURAL STEROID INJECTION 11/18/2020 LUMBAR TRANSFORAMINAL EPIDURAL STEROID INJECTION 12/30/2020 NERVE BLOCK Bilateral 04/22/2020 L2-L5 Nerve Blocks NERVE BLOCK Bilateral 05/13/2020 L2-L4 Nerve Blocks OTHER SURGICAL HISTORY Right R/O buccal mass 3-12-13 Dr. Williamson RADIOFREQUENCY ABLATION Left 07/08/2020 L2-L4 RFA RADIOFREQUENCY ABLATION Right 06/26/2020 L2-L4 RFA ROTATOR CUFF REPAIR Left 2006 SHOULDER OPEN ROTATOR CUFF REPAIR Right 2001 TUMOR EXCISION Left Fatty tumor excised shoulder Visit Vitals Ht 5' 4 BMI 24.37 kg/m Smoking Status Never BSA 1.71 m Review of Systems Constitutional: Positive for night sweats. HENT: Positive for congestion, ear pain, postnasal drip, sinus pain and sore throat. Eyes: Negative. Respiratory: Negative. Cardiovascular: Negative. Gastrointestinal: Negative. Genitourinary: Negative. Musculoskeletal: Negative. Skin: Negative. Neurological: Negative. Psychiatric/Behavioral: Negative. Hematological: Negative. Endocrine: Negative. Allergic/Immunologic: Negative. Objective Physical Exam Vitals reviewed. Constitutional: Appearance: Normal appearance. HENT: Head: Normocephalic and atraumatic. Right Ear: External ear normal. Left Ear: External ear normal. Ears: Comments: Bilateral tm's are obscured by cerumen, canals without redness Nose: Congestion and rhinorrhea present. Mouth/Throat: Mouth: Mucous membranes are moist. Pharynx: Oropharyngeal exudate and posterior oropharyngeal erythema present. Eyes: Conjunctiva/sclera: Conjunctivae normal. Pupils: Pupils are equal, round, and reactive to light. Cardiovascular: Rate and Rhythm: Normal rate and regular rhythm. Pulses: Normal pulses. Heart sounds: Normal heart sounds. Pulmonary: Effort: Pulmonary effort is normal. Breath sounds: Normal breath sounds. Abdominal: General: Bowel sounds are normal. Palpations: Abdomen is soft. Musculoskeletal: General: Normal range of motion. Cervical back: Normal range of motion and neck supple. Skin: General: Skin is warm and dry. Comments: Bilateral feet with noted bunions, no redness, no open areas, no calloused areas, thickened nails bilaterally, nails recently trimmed, pain at the first mtp joint and over the intermetatarsal ligament area, rates the pain at 5/10 most days. States this pain has worsened. It is a burning/tingling type of pain. Neurological: General: No focal deficit present. Mental Status: She is alert and oriented to person, place, and time. Psychiatric: Mood and Affect: Mood normal. Behavior: Behavior normal. Thought Content: Thought content normal. Judgment: Judgment normal. Assessment/Plan 1. Encounter for diabetic foot exam ([facility]) (Primary) Diabetic foot exam completed today. No concerns are noted. 2. Type 2 diabetes mellitus with other neurologic complication, without long- term current use of insulin ([facility]) 06/11/24 Glucose 65 - 99 mg/dL 186 High Hemoglobin A1C 7.1 3. Neuropathic pain ROPINIRole and gabapentin continue. Ropinirole is increased today. She will take 0.5 mg in the am, 1 mg at HS. 4. Acute non-recurrent frontal sinusitis Discussed diagnosis with the pt, use of amoxicillin and its most common side effects. She is advised to continue otc tylenol, increased fluids, rest and follow up if continuing or worsening symptom - amoxicillin (Amoxil) 500 MG capsule; Take 1 capsule (500 mg) by mouth in the morning and 1 capsule (500 mg) in the evening and 1 capsule (500 mg) before bedtime. Do all this for 10 days. Dispense: 30 capsule; Refill: 0 5. Restless legs syndrome (RLS) Added a AM dose today. - rOPINIRole (Requip) 1 MG tablet; Take 0.5 tablets (0.5 mg) by mouth Daily Dispense: 45 tablet; Refill: 0 6. Bilateral impacted cerumen Bilateral cerumen impaction was removed today. Stable TM's following removal. 7. Exudative age-related macular degeneration, bilateral, with inactive choroidal neovascularization (CMS/HCC) Stable. 8. Vitreous hemorrhage, bilateral (CMS/HCC) stable 9. Inflammatory polyps of colon without complications (CMS/HCC) stable 10. Inflammatory polyps of colon with rectal bleeding (CMS/HCC) Stable. No follow-ups on file. documented in this [facility]02-27-2025 Instructions* Patient Instructions* Adonay Diop NP - 10/25/2024 1:00 PM EST Add amoxicillin today Ear lavage to both ears today, clear. Ropinirole increased today. documented in this [facility]02-26-2025 History of Present illness Narrative* Prem Morales DPM - 10/24/2024 9:45 AM EST Images from the original note were not included. Reason for Visit Established patient: Recheck onychomycosis/nailcare History of Present Illness Established patient presents to clinic for debridement of elongated, mycotic toenails. Patient is not applying any anti-fungal medication to the toenails. Patient complains of pain B/L hallux states she might have some in grown. Patient states she can't see she lost her her center vision 6 years ago. Location: nails on bilateral feet. Severity of symptoms: mild. Onset: gradual. Status: no change. Context: hard to trim, hard to reach. NAILS: thickened, discolored, elongated. Relieved by: debridement, filing down nails, clipping nails. History of ulcers/wounds: no. Recent BS reading, if diabetic: 150. A1C on 12-19-2023 was 7.3. PCP: Conrado Ambriz. Date of Last visit: 09-02-2024 Aggravated by: shoe gear, pressure. Risk factors: diabetes. Review of Systems General: Chills denies. Fatigue denies. Fever denies. Night sweats denies. Endocrine: Hyperpigmentation denies. Diabetes admits. Weakness denies. Cardiovascular: Chest pain denies. Shortness of breath denies. Gastrointestinal: Constipation denies. Diarrhea denies. Nausea denies. Vomiting denies. Hematology: Anemia denies. Bleeding problems denies. Easy bruising denies. Musculoskeletal: Bone/joint symptoms admits. Leg cramps denies. Peripheral Vascular: Edema denies. Rest pain denies. Varicose veins denies. Raynaud's denies. Skin: Ulceration denies. Nail changes denies. Rash denies. Skin lesion(s) denies. Neurologic: Dizziness denies. Gait abnormality denies. Headache denies. Tingling/Numbness denies. Examination General Examination: GENERAL EXAMINATION: awake, aware of surroundings, in no acute distress. FOOT EXAM: Date of Last Foot Exam: 09/27/2023 Sensory testing performed: sensations diminished Sensory and motor testing performed: strength diminished Pedal pulse taking performed: 2+ Vascular: DORSALIS PEDIS PULSE: 2/4 bilaterally. POSTERIOR TIBIAL PULSE:RT: 1/4 and LT. 0/4. TEMPERATURE GRADIENT: warm to cool. EDEMA: Minimal bilateral lower extremity. VARICOSITIES: present bilaterally. CAPILLARY FILLING TIME(sec): capillary fill intact bilateral digits less than 3 secs. Neurologic: VIBRATORY: diminished bilaterally. SEMMES-TATYANA 5.07 MONOFILAMENT: diminished bilaterally. NEUROLOGIC: peripheral neuropathy to the bilateral lower extremity: numbess to right foot in area of right 4,5 toes and ball of foot. Tingling to right foot with touch. Patient states balance is off. Uses a cane for ambulation assistance. Had previous physical therapy to improve balance and proprioception. Dermatologic: SKIN FINDINGS: skin is thin shiny atrophic dry with absent pedal hair to the bilateral lower extremity. HYPERKERATOSIS: Pre-ulcerative callus: right distal hallux - resolved. NAIL PATHOLOGY: nails 1-5 intact bilaterally. ULCER: ulcer left distal 3rd toe remains healed. Ankle / Foot: MUSCLE STRENGTH: 5-/5. Toes are weaker bilaterally. Orthopedic: FOOT MORPHOLOGY: pes plano valgus bilateral. JOINT RANGE OF MOTION: decreased to the bilateral foot first metatarsophalangeal joint. DEFORMITIES: hallux valgus bilateral, hallux limitus bilateral, hammertoes 2-5 bilateral. PAIN ELICITED WITH PALPATION OF: none today. ORTHOPEDIC: fat pad atrophy bilateral foot. SHOE GEAR EVALUATION: casual lace up shoes and OTC insoles. Nail Pathology: Right Foot: 1 (great toe) Long, non-dystrophic -Painful 2 Long, Thick, Crumbly, Deformed, Discolored, Brittle, Dystrophic. 3 Long, Thick, Crumbly, Deformed, Discolored, Brittle, Dystrophic. 4 Long, non-dystrophic. 5 Long, Thick, Crumbly, Deformed, Discolored, Brittle, Dystrophic. Nail Pathology: Left Foot: 1 (great toe) Long, Thick, Crumbly, Deformed, Discolored, Brittle, Dystrophic - painful 2 Long, Thick, Crumbly, Deformed, Discolored, Brittle, Dystrophic. 3 Long, Thick, Crumbly, Deformed, Discolored, Brittle, Dystrophic. 4 Long, non-dystrophic. 5Long, non-dystrophic Modifier: - Q9. Assessments 1. Dermatophytosis of nail - B35.1, Elongated, mycotic toenails 2,3,5 right and 1,2,3 left 2. Pain bilateral hallux ingrown toenail without infect 3. Other specified disease of nail - L60.8, Elongated, non-mycotic toenails 1,4, right and 4,5 left 4. Pre-ulcerative calluses - L84, Right distal hallux - Resolved 5. DM neuro manif type II - E11.49 6. Localized edema - R60.0 7. Neuropathic pain - M79.2 8. Hammertoe of right foot - M20.41 9. Hammertoe of left foot - M20.42 10. Impaired ambulation - R26.2 11. Risk for falls - Z91.81 12. Balance problem - R26.89 13. Fat pad atrophy of foot - R29.898 14. 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 Hallux valgus of left foot - M20.12 16. Hallux limitus of right foot - M20.5X1 17. Hallux limitus of left foot - M20.5X2 18. Acquired pes planovalgus of right foot - M21.41 19. Acquired pes planovalgus of left foot - M21.42 20. Asymptomatic varicose veins - I83.90 Treatment Dermatophytosis of nail 1. Patient seen today for follow up examination. Patient has pain to left hallux medial nail border. 2. I debrided elongated, onychomycotic toenails 2,3,5 right and 1,2,3 left via manual and mechanical means. 3. Patient should wash and dry bilateral foot twice a day and start application of topical Tolcylentwice a day to all ten toenails until full resolution of onychomycosis. Patient declined purchase of Tolcylen today. 4. Patient should seek assistance with debridement of toenails at home with emery board, not using same surface twice, to avoid recontamination. 5. Reappoint 63 days. Pain left toenail 1. Patient seen today for follow up examination. Patient has pain to left hallux medial nail border. 2. I debrided elongated, onychomycotic toenails 2,3,5 right and 1,2,3 left via manual and mechanical means. 3. Patient should wash and dry bilateral foot twice a day and start application of topical Tolcylentwice a day to all ten toenails until full resolution of onychomycosis. Patient declined purchase of Tolcylen today. 4. Patient should seek assistance with debridement of toenails at home with emery board, not using same surface twice, to avoid recontamination. 5. Reappoint 63 days. Other specified disease of nail 1. Patient was seen for followup examination. 2. I debrided elongated, non-dystrophic toenails 1,4 right and 4,5 left via manual and mechanical means. 3. Reappoint in 63 days. DM neuro manif type II 1. Patient advised to always maintain proper diabetic control. 2. Patient advised to wash and dry bilateral foot once daily and apply a good moisturizing cream tobilateral lower extremity, except for in between toes, post bathing to keep skin from becoming too dry. 3. Patient advised to perform daily foot inspections and observe for any signs of skin breakdown. 4. Patient should continue to take Gabapentin 300 mg, one capsule twice a day, for treatment of neuropathy symptoms. 5. Patient should continue to wear diabetic shoes and insoles for all weightbearing activity. [id number] Evaluation note* Diagnosis Onset Date Resolution Status Admit Date Chronic GERD acute September 1:11pm Irritable bowel syndrome wit h constipation acute October 03 1:11pm Chronic GERD acute November 14, 2024 1:45pm Diarrhea acute November 14 1:45pm Incontinence acute November 14, 2024 1:45pm Irritable bowel syndrome wit h constipation acute November 14, 2024 1:45pm [facility] Work Phone: [phone]) 678-670001-03-2025 History of Present illness Narrative* Conrado Ambriz MD - 08/31/2024 10:30 AM EST Images from the original note were not included. HPI GERD Additional comments: Taking omeprazole as directed Med Refill Additional comments: Omeprazole-- [facility] Psoriasis Additional comments: Pt has seen derm in past dx: psoriasis pt is wanting to know what causes psoriasis and if there is something besides the cream to treat it Last edited by Hollie Jimenez LPN on 08/31/2024 10:55 AM. Subjective Patient ID: Elizabeth Ramirez is a 89 y.o. female who presents for GERD (Taking omeprazole as directed), recheck for UTI, Med Refill (Omeprazole-- [facility]), and Psoriasis (Pt has seen derm in past dx: psoriasis pt is wanting to know what causes psoriasis and if there is something besides the cream to treat it). Diabetes Mellitus Patient presents for follow up of diabetes. Current symptoms include: none. Patient denies foot ulcerations, hypoglycemia , polydipsia, polyuria, and vomiting. Evaluation to date has included: fasting blood sugar, fasting lipid panel, and hemoglobin A1C. Home sugars: BGs range between 130 and 140 Pt started Amitiza per Dr Barton (GI) order doing well Pt finished abx for uti- would like to be rechecked GERD She complains of coughing. Med Refill Associated symptoms include coughing. Psoriasis Diabetes Sinusitis Associated symptoms include coughing. Hypertension Current Outpatient Medications on File Prior to Visit Medication Sig Dispense Refill amLODIPine (Norvasc) 5 MG tablet TAKE 1 TABLET DAILY 100 tablet 3 b complex vitamins capsule Take 1 capsule by mouth in the morning. benazepril (Lotensin) 20 MG tablet Take 1 tablet (20 mg) by mouth Daily 90 tablet 3 Calcium 250 MG capsule Take 1 tablet by mouth Daily cholecalciferol (Vitamin D-3) 25 MCG (1000 UT) capsule Take 1,000 Units by mouth Daily gabapentin (Neurontin) 300 MG capsule Take 1 capsule (300 mg) by mouth in the morning and 1 capsule(300 mg) before bedtime. 180 capsule 3 glyBURIDE (Diabeta) 5 MG tablet Take 1 tablet (5 mg) by mouth in the morning and 1 tablet (5 mg) inthe evening. Take with meals. 180 tablet 3 Januvia 100 MG tablet TAKE ONE TABLET BY MOUTH EVERY DAY 90 tablet 2 levothyroxine (Synthroid, Levoxyl) 50 MCG tablet Take 1 tablet (50 mcg) by mouth Daily 100 tablet 3 lubiprostone (Amitiza) 8 MCG capsule Take 8 mcg by mouth in the morning and 8 mcg in the evening. Take with meals. meloxicam (Mobic) 7.5 MG tablet Take 1 tablet (7.5 mg) by mouth Daily 90 tablet 3 rOPINIRole (Requip) 1 MG tablet Take 1 tablet (1 mg) by mouth at bedtime 90 tablet 3 triamcinolone (Kenalog) 0.1 % cream APPLY TO TRUNK,ARMS, AND LEGS, TWICE A DAY [DISCONTINUED] omeprazole (PriLOSEC) [address] capsule Take 1 capsule (40 mg) by mouth in the morning. Take before meals. Do not crush or chew.. 30 capsule 11 No current facility-administered medications on file prior to visit. I have reviewed and reconciled the history and medication list with the patient today. Allergies Allergen Reactions Hylan G-F 20 Swelling Other Reaction(s): Edema Metformin Diarrhea Moxifloxacin Hives Simvastatin GI intolerance and Nausea And Vomiting Ciprofloxacin Rash Ciprofloxacin Hcl Rash Temazepam Rash Other Reaction(s): rash, sore mouth Wound Dressing Adhesive Rash Social History Tobacco Use Smoking status: Never Smokeless tobacco: Never Vaping Use Vaping status: Never Used Substance Use Topics Alcohol use: Never Comment: caffeine: Yes, coffee tea Drug use: Never Family History Problem Relation Name Age of Onset Stroke Mother Heart disease Father Leukemia Sister Melanoma Neg Hx Past Medical History: Diagnosis Date Arthritis Back problem Diverticulosis Ganglion cyst Hearing loss of right ear, unspecified hearing loss type History of being hospitalized 06/2015 3 days for surgery History of sinus problem Hypertension ([facility]) Knee problem Macular degeneration Onychomycosis Osteoporosis ([facility]) Rotator cuff tear, left Rotator cuff tear, right Sepsis secondary to UTI ([facility]) 04/30/2022 Tear of rotator cuff 02/02/2023 Type 2 diabetes mellitus ([facility]) Visual impairment w/corrective lenses Past Surgical History: Procedure Laterality Date BACK SURGERY 07/28/[address] Joel BUCCAL MASS EXCISION Right CHOLECYSTECTOMY COLECTOMY [address] Marie COLONOSCOPY COLONOSCOPY W/ POLYPECTOMY 05/20/2021 COLONOSCOPY W/ POLYPECTOMY 05/23/2024 GANGLION CYST EXCISION 2001 Dr. Martini HYSTERECTOMY KNEE SURGERY Left Arthroscopy Knee- Dr. José LUMBAR TRANSFORAMINAL EPIDURAL STEROID INJECTION 11/18/2020 LUMBAR TRANSFORAMINAL EPIDURAL STEROID INJECTION 12/30/2020 NERVE BLOCK Bilateral 04/22/2020 L2-L5 Nerve Blocks NERVE BLOCK Bilateral 05/13/2020 L2-L4 Nerve Blocks OTHER SURGICAL HISTORY Right R/O buccal mass 11-07-12 Dr. Williamson RADIOFREQUENCY ABLATION Left 07/08/2020 L2-L4 RFA RADIOFREQUENCY ABLATION Right 06/26/2020 L2-L4 RFA ROTATOR CUFF REPAIR Left 2006 SHOULDER OPEN ROTATOR CUFF REPAIR Right 2001 TUMOR EXCISION Left Fatty tumor excised shoulder Visit Vitals BP 132/72 Pulse 83 Ht 5' 4 Wt 142 lb SpO2 97% BMI 24.37 kg/m Smoking Status Never BSA 1.71 m Review of Systems Respiratory: Positive for cough. Objective Physical Exam Constitutional: General: She is not in acute distress. Appearance: Normal appearance. She is well-developed. HENT: Head: Normocephalic and atraumatic. Right Ear: Tympanic membrane and ear canal normal. Left Ear: Tympanic membrane and ear canal normal. Nose: Nose normal. Mouth/Throat: Mouth: Mucous membranes are moist. Pharynx: No posterior oropharyngeal erythema. Eyes: General: No scleral icterus. Extraocular Movements: Extraocular movements intact. Conjunctiva/sclera: Conjunctivae normal. Pupils: Pupils are equal, round, and reactive to light. Neck: Vascular: No carotid bruit. Cardiovascular: Rate and Rhythm: Normal rate and regular rhythm. Heart sounds: Normal heart sounds. No murmur heard. Pulmonary: Effort: Pulmonary effort is normal. No respiratory distress. Breath sounds: Normal breath sounds. No wheezing, rhonchi or rales. Abdominal: General: Bowel sounds are normal. There is no distension. Palpations: Abdomen is soft. Tenderness: There is no abdominal tenderness. There is no guarding. Musculoskeletal: General: No swelling or deformity. Normal range of motion. Cervical back: Normal range of motion and neck supple. No tenderness. Skin: General: Skin is warm and dry. Capillary Refill: Capillary refill takes less than 2 seconds. Neurological: General: No focal deficit present. Mental Status: She is alert and oriented to person, place, and time. Cranial Nerves: No cranial nerve deficit. Sensory: No sensory deficit. Motor: No weakness. Gait: Gait normal. Deep Tendon Reflexes: Reflexes normal. Psychiatric: Mood and Affect: Mood normal. Behavior: Behavior normal. Thought Content: Thought content normal. Judgment: Judgment normal. Office Visit on 08/31/2024 Component Date Value Ref Range Status Glucose, UA 08/31/2024 3+ Negative - 1999(110) ++++ mg/dL Final Bilirubin, UA 08/31/2024 Negative Negative - (70) +++ mg/dL Final Ketones, UA 08/31/2024 Negative Negative - 160(16) ++++ mg/dL Final Spec Grav, UA 08/31/2024 1.005 1 - 1.03 Final Blood, UA 08/31/2024 Negative Negative - 50 Tony/mcL Final pH, UA 08/31/2024 6.0 5 - 9 Final Protein, UA 08/31/2024 Negative Negative - 1999(20) ++++ mg/dL Final Urobilinogen, UA 08/31/2024 0.2 0.2 - 12 mg/dL Final Leukocytes, UA 08/31/2024 Negative Negative - 500+++ Kristopher/mcL Final Nitrite, UA 08/31/2024 Negative Negative - Positive Final Office Visit on 08/01/2024 Component Date Value Ref Range Status Glucose, UA 08/01/2024 Negative Negative - 1999(110) ++++ mg/dL Final Bilirubin, UA 08/01/2024 Trace Negative - 4(70) +++ mg/dL Final Ketones, UA 08/01/2024 Negative Negative - 160(16) ++++ mg/dL Final Spec Grav, UA 08/01/2024 1.005 1 - 1.03 Final Blood, UA 08/01/2024 Negative Negative - 50 Tony/mcL Final pH, UA 08/01/2024 6.0 5 - 9 Final Protein, UA 08/01/2024 Negative Negative - 2000(20) ++++ mg/dL Final Urobilinogen, UA 08/01/2024 0.2 0.2 - 12 mg/dL Final Leukocytes, UA 08/01/2024 Moderate Negative - 500+++ Kristopher/mcL Final Nitrite, UA 08/01/2024 Negative Negative - Positive Final Assessment/Plan Diagnoses and all orders for this visit: Type 2 diabetes mellitus with other neurologic complication, without long-term current use of insulin ([facility]) - FSBS log shows good control, most recent A1C is at or near goal. Continue current treatment plan as previously outlined without changes. - This office visit was spent in consultation regarding the patient's current medical problems, differential diagnoses, testing/imaging results, and treatment options. Greater than 25 minutes was spent in [id number] consultation and coordination of care. Gastroesophageal reflux disease, 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 esophagitis present - omeprazole (PriLOSEC) [address] capsule; Take 1 capsule (40 mg) by mouth in the morning. Take before meals. Do not crush or chew.. Mixed stress and urge urinary incontinence - POCT Urinalysis dipstick Follow up in about 3 months (around 11/29/2024) for Routine F/U. documented in this encounterCameron [facility] Medical [id number] History of Present illness Narrative* Conrado Ambriz MD - 08/01/2024 9:30 AM EST Images from the original note were not included. Subjective Patient ID: Elizabeth Ramirez is a 88 y.o. female who presents for Sinusitis. Sinus Pain Patient complains of congestion, cough, headaches, and right ear pain. Onset of symptoms was 1 weekago. Symptoms have been unchanged since that time. is non-smoker. Pt states she has had some issues recently with indigestion Pt states she also has some dysuria and would like to be checked for UTI Sinusitis Pertinent negatives include no chills. Current Outpatient Medications on File Prior to Visit Medication Sig Dispense Refill amLODIPine (Norvasc) 5 MG tablet TAKE 1 TABLET DAILY 100 tablet 3 b complex vitamins capsule Take 1 capsule by mouth in the morning. benazepril (Lotensin) 20 MG tablet Take 1 tablet (20 mg) by mouth Daily 90 tablet 3 Calcium 250 MG capsule Take 1 tablet by mouth Daily cholecalciferol (Vitamin D-3) 25 MCG (1000 UT) capsule Take 1,000 Units by mouth Daily gabapentin (Neurontin) 300 MG capsule Take 1 capsule (300 mg) by mouth in the morning and 1 capsule(300 mg) before bedtime. 180 capsule 3 glyBURIDE (Diabeta) 5 MG tablet Take 1 tablet (5 mg) by mouth in the morning and 1 tablet (5 mg) inthe evening. Take with meals. 180 tablet 3 Januvia 100 MG tablet TAKE ONE TABLET BY MOUTH EVERY DAY 90 tablet 2 levothyroxine (Synthroid, Levoxyl) 50 MCG tablet Take 1 tablet (50 mcg) by mouth Daily 100 tablet 3 meloxicam (Mobic) 7.5 MG tablet Take 1 tablet (7.5 mg) by mouth Daily 90 tablet 3 rOPINIRole (Requip) 1 MG tablet Take 1 tablet (1 mg) by mouth at bedtime 90 tablet 3 triamcinolone (Kenalog) 0.1 % cream APPLY TO TRUNK,ARMS, AND LEGS, TWICE A DAY No current facility-administered medications on file prior to visit. I have reviewed and reconciled the history and medication list with the patient today. Allergies Allergen Reactions Hylan G-F 20 Swelling Other Reaction(s): Edema Metformin Diarrhea Moxifloxacin Hives Simvastatin GI intolerance and Nausea And Vomiting Ciprofloxacin Rash Ciprofloxacin Hcl Rash Temazepam Rash Other Reaction(s): rash, sore mouth Wound Dressing Adhesive Rash Social History Tobacco Use Smoking status: Never Smokeless tobacco: Never Vaping Use Vaping status: Never Used Substance Use Topics Alcohol use: Never Comment: caffeine: Yes, coffee tea Drug use: Never Family History Problem Relation Name Age of Onset Stroke Mother Heart disease Father Leukemia Sister Melanoma Neg Hx Past Medical History: Diagnosis Date Arthritis Back problem Diverticulosis Ganglion cyst Hearing loss of right ear, unspecified hearing loss type History of being hospitalized 06/2015 3 days for surgery History of sinus problem Hypertension ([facility]) Knee problem Macular degeneration Onychomycosis Osteoporosis ([facility]) Rotator cuff tear, left Rotator cuff tear, right Sepsis secondary to UTI ([facility]) 04/30/2022 Tear of rotator cuff 02/02/2023 Type 2 diabetes mellitus ([facility]) Visual impairment w/corrective lenses Past Surgical History: Procedure Laterality Date BACK SURGERY 07/28/[address] Joel BUCCAL MASS EXCISION Right CHOLECYSTECTOMY COLECTOMY [address] Marie COLONOSCOPY COLONOSCOPY W/ POLYPECTOMY 05/20/2021 COLONOSCOPY W/ POLYPECTOMY 05/23/2024 GANGLION CYST EXCISION 2001 Dr. Martini HYSTERECTOMY KNEE SURGERY Left Arthroscopy Knee- Dr. José LUMBAR TRANSFORAMINAL EPIDURAL STEROID INJECTION 11/18/2020 LUMBAR TRANSFORAMINAL EPIDURAL STEROID INJECTION 12/30/2020 NERVE BLOCK Bilateral 04/22/2020 L2-L5 Nerve Blocks NERVE BLOCK Bilateral 05/13/2020 L2-L4 Nerve Blocks OTHER SURGICAL HISTORY Right R/O buccal mass 3-12-13 Dr. Williamson RADIOFREQUENCY ABLATION Left 07/08/2020 L2-L4 RFA RADIOFREQUENCY ABLATION Right 06/26/2020 L2-L4 RFA ROTATOR CUFF REPAIR Left 2006 SHOULDER OPEN ROTATOR CUFF REPAIR Right 2001 TUMOR EXCISION Left Fatty tumor excised shoulder Visit Vitals BP 132/62 Pulse 67 Temp 97 F Ht 5' 4 Wt 140 lb SpO2 98% BMI 24.03 kg/m Smoking Status Never BSA 1.69 m Review of Systems Constitutional: Positive for fatigue. Negative for chills and fever. Gastrointestinal: Negative for nausea and vomiting. Objective Physical Exam Constitutional: General: She is not in acute distress. Appearance: Normal appearance. She is well-developed. HENT: Head: Normocephalic and atraumatic. Right Ear: Tympanic membrane and ear canal normal. Left Ear: Tympanic membrane and ear canal normal. Nose: Nose normal. Mouth/Throat: Mouth: Mucous membranes are moist. Pharynx: No posterior oropharyngeal erythema. Eyes: General: No scleral icterus. Extraocular Movements: Extraocular movements intact. Conjunctiva/sclera: Conjunctivae normal. Pupils: Pupils are equal, round, and reactive to light. Neck: Vascular: No carotid bruit. Cardiovascular: Rate and Rhythm: Normal rate and regular rhythm. Heart sounds: Normal heart sounds. No murmur heard. Pulmonary: Effort: Pulmonary effort is normal. No respiratory distress. Breath sounds: Normal breath sounds. No wheezing, rhonchi or rales. Abdominal: General: Bowel sounds are normal. There is no distension. Palpations: Abdomen is soft. Tenderness: There is no abdominal tenderness. There is no guarding. Musculoskeletal: General: No swelling or deformity. Normal range of motion. Cervical back: Normal range of motion and neck supple. No tenderness. Skin: General: Skin is warm and dry. Capillary Refill: Capillary refill takes less than 2 seconds. Findings: Wound present. No rash. Comments: Left anterior lower leg with superficial skin tear, no surrounding erythema, no active bleeding, no purulent drainage. Neurological: General: No focal deficit present. Mental Status: She is alert and oriented to person, place, and time. Cranial Nerves: No cranial nerve deficit. Sensory: No sensory deficit. Motor: No weakness. Gait: Gait normal. Deep Tendon Reflexes: Reflexes normal. Psychiatric: Mood and Affect: Mood normal. Behavior: Behavior normal. Thought Content: Thought content normal. Judgment: Judgment normal. Assessment/Plan Diagnoses and all orders for this visit: Acute cystitis without hematuria - cefdinir (Omnicef) 300 MG capsule; Take 1 capsule (300 mg) by mouth in the morning and 1 capsule (300 mg) before bedtime. Do all this for 7 days. Gastroesophageal reflux disease, 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 esophagitis present - omeprazole (PriLOSEC) [address] capsule; Take 1 capsule (40 mg) by mouth in the morning. Take before meals. Do not crush or chew.. Acute non-recurrent sinusitis, unspecified location - cefdinir (Omnicef) 300 MG capsule; Take 1 capsule (300 mg) by mouth in the morning and 1 capsule (300 mg) before bedtime. Do all this for 7 days. Follow up in about 4 weeks (around 08/29/2024) for Wellness. documented in this encounterCameron [facility] Medical [id number] Evaluation note* Diagnosis Onset Date Resolution Status Admit Date Irritable bowel syndrome wit h constipation acute July 24 024 1:16pm Chronic GERD acute September 1:11pm Irritable bowel syndrome wit h constipation acute October 03 1:11pm [facility] Work Phone: [phone]) 964-860111-04-2024 History of Present illness Narrative* Analy Martinez, JOHNIE - 07/02/2024 2:00 PM EST Images from the original note were not included. Subjective : Chief Complaint: Elizabeth Ramirez is an 88 y.o. female here for an annual wellness visit. Here with her daughter, Nikkie. I have reviewed and reconciled the history and medication list with the patient today. Current Outpatient Medications on File Prior to Visit Medication Sig Dispense Refill [DISCONTINUED] glipiZIDE (Glucotrol) 5 MG tablet Take 5 mg by mouth 1 (one) time each day amLODIPine (Norvasc) 5 MG tablet TAKE 1 TABLET DAILY 100 tablet 3 b complex vitamins capsule Take 1 capsule by mouth in the morning. benazepril (Lotensin) 20 MG tablet Take 1 tablet (20 mg) by mouth Daily 90 tablet 3 Calcium 250 MG capsule Take 1 tablet by mouth Daily cholecalciferol (Vitamin D-3) 25 MCG (1000 UT) capsule Take 1,000 Units by mouth Daily gabapentin (Neurontin) 300 MG capsule Take 1 capsule (300 mg) by mouth in the morning and 1 capsule(300 mg) before bedtime. 180 capsule 3 glyBURIDE (Diabeta) 5 MG tablet Take 1 tablet (5 mg) by mouth in the morning and 1 tablet (5 mg) inthe evening. Take with meals. 180 tablet 3 Januvia 100 MG tablet TAKE ONE TABLET BY MOUTH EVERY DAY 90 tablet 2 levothyroxine (Synthroid, Levoxyl) 50 MCG tablet Take 1 tablet (50 mcg) by mouth Daily 100 tablet 3 meloxicam (Mobic) 7.5 MG tablet Take 1 tablet (7.5 mg) by mouth Daily 90 tablet 3 rOPINIRole (Requip) 1 MG tablet Take 1 tablet (1 mg) by mouth at bedtime 90 tablet 3 triamcinolone (Kenalog) 0.1 % cream APPLY TO TRUNK,ARMS, AND LEGS, TWICE A DAY [DISCONTINUED] cyanocobalamin (Vitamin B-12) 100 MCG tablet Take 100 mcg by mouth in the morning. No current facility-administered medications on file prior to visit. Allergies Allergen Reactions Hylan G-F 20 Swelling Other Reaction(s): Edema Metformin Diarrhea Moxifloxacin Hives Simvastatin GI intolerance and Nausea And Vomiting Ciprofloxacin Rash Ciprofloxacin Hcl Rash Temazepam Rash Other Reaction(s): rash, sore mouth Wound Dressing Adhesive Rash Social History Tobacco Use Smoking status: Never Smokeless tobacco: Never Vaping Use Vaping status: Never Used Substance Use Topics Alcohol use: Never Comment: caffeine: Yes, coffee tea Drug use: Never Family History Problem Relation Name Age of Onset Stroke Mother Heart disease Father Leukemia Sister Melanoma Neg Hx Past Medical History: Diagnosis Date Arthritis Back problem Diverticulosis Ganglion cyst Hearing loss of right ear, unspecified hearing loss type History of being hospitalized 06/2015 3 days for surgery History of sinus problem Hypertension ([facility]) Knee problem Macular degeneration Onychomycosis Osteoporosis ([facility]) Rotator cuff tear, left Rotator cuff tear, right Sepsis secondary to UTI ([facility]) 04/30/2022 Tear of rotator cuff 02/02/2023 Type 2 diabetes mellitus ([facility]) Visual impairment w/corrective lenses Past Surgical History: Procedure Laterality Date BACK SURGERY 07/28/[address] Joel BUCCAL MASS EXCISION Right CHOLECYSTECTOMY COLECTOMY [address] Marie COLONOSCOPY COLONOSCOPY W/ POLYPECTOMY 05/20/2021 COLONOSCOPY W/ POLYPECTOMY 05/23/2024 GANGLION CYST EXCISION 2001 Dr. Martini HYSTERECTOMY KNEE SURGERY Left Arthroscopy Knee- Dr. José LUMBAR TRANSFORAMINAL EPIDURAL STEROID INJECTION 11/18/2020 LUMBAR TRANSFORAMINAL EPIDURAL STEROID INJECTION 12/30/2020 NERVE BLOCK Bilateral 04/22/2020 L2-L5 Nerve Blocks NERVE BLOCK Bilateral 05/13/2020 L2-L4 Nerve Blocks OTHER SURGICAL HISTORY Right R/O buccal mass 3-12-13 Dr. Williamson RADIOFREQUENCY ABLATION Left 07/08/2020 L2-L4 RFA RADIOFREQUENCY ABLATION Right 06/26/2020 L2-L4 RFA ROTATOR CUFF REPAIR Left 2006 SHOULDER OPEN ROTATOR CUFF REPAIR Right 2002 TUMOR EXCISION Left Fatty tumor excised shoulder Review of Systems Constitutional: Negative for chills, fatigue and fever. HENT: Negative for congestion, ear pain, rhinorrhea and sore throat. Eyes: Negative for pain, discharge and visual disturbance. Respiratory: Negative for cough, shortness of breath and wheezing. Cardiovascular: Negative for chest pain, palpitations and leg swelling. Gastrointestinal: Negative for abdominal pain, constipation, diarrhea, nausea and vomiting. Genitourinary: Negative for difficulty urinating, dysuria and frequency. Musculoskeletal: Negative for arthralgias and back pain. Skin: Positive for wound. Negative for rash. Neurological: Negative for dizziness and numbness. Psychiatric/Behavioral: Negative for sleep disturbance. The patient is not nervous/anxious. List of current healthcare providers: Patient Care Team: Conrado Ambriz MD as PCP - General (Internal Medicine) Conrado Ambriz MD as PCP - [facility] [employer] Annual Visit Over the past 2 weeks, how often have you been bothered by any of the following problems? Little interest or pleasure in doing things: Not at all Feeling down, depressed, or hopeless: Not at all Patient Health Questionnaire-2 Score: 0 Over the past 2 weeks, how often have you been bothered by any of the following problems? Trouble falling or staying asleep, or sleeping too much: Not at all Feeling tired or having little energy: Not at all Poor appetite or overeating: Not at all Feeling bad about yourself - or that you are a failure or have let yourself or your family down: Not at all Trouble concentrating on things, such as reading the newspaper or watching television: Not at all Moving or speaking so slowly that other people could have noticed? Or the opposite - being so fidgety or restless that you have been moving around a lot more than usual.: Not at all Thoughts that you would be better off or hurting yourself in some way: Not at all Patient Health Questionnaire-9 Score: 0 Luis Fall Risk History of Falling, Immediate or Within 3 Months: Yes (fell Tuesday and has a skin tear on her left dawkins and would like for you to look at it.) Ambulatory Aid: Crutches/cane/walker Health Risk Assessment Form Do you need help eating, bathing, using the toilet, dressing, or getting around your home?: No Can you prepare your own meals?: Yes Can you do your own housework without help?: No Can you shop for groceries or clothes without help?: No Do you exercise for about 20 minutes 3 or more days a week?: No How confident are you that you can control and manage most of your health problems?: Not very confident Can you mange your money, credit cards and accounts, pay bills and taxes?: No (HAS VISAL IMPAIRMENT) Vision Screening: Severe visual impairment Hearing Screening: Yes, no gross abnormalities Cognitive Screening Self Assessment: No overt cognitive deficiency is apparent by direct observation Three Word Registration: Leader, Season, Table Clock Drawing: Inability or Refusal to Draw Clock - 0 (HAS A VISUAL DISABILITY) Three Word Recall: 2/3 words correct - 2 Total Score (0-5 Points): 2 Pain Assessment Pain Score: 3 Advance Care Planning Do you have a living will?: Yes Do you have a medical power of [place] attorney?: Yes Objective : BP 148/76 Pulse 74 Resp 16 Ht 5' 4 Wt 142 lb 3.2 oz SpO2 95% BMI 24.41 kg/m No results found. Physical Exam Constitutional: General: She is not in acute distress. Appearance: Normal appearance. She is well-developed. HENT: Head: Normocephalic and atraumatic. Right Ear: Tympanic membrane and ear canal normal. Left Ear: Tympanic membrane and ear canal normal. Nose: Nose normal. Mouth/Throat: Mouth: Mucous membranes are moist. Pharynx: No posterior oropharyngeal erythema. Eyes: General: No scleral icterus. Extraocular Movements: Extraocular movements intact. Conjunctiva/sclera: Conjunctivae normal. Pupils: Pupils are equal, round, and reactive to light. Neck: Vascular: No carotid bruit. Cardiovascular: Rate and Rhythm: Normal rate and regular rhythm. Heart sounds: Normal heart sounds. No murmur heard. Pulmonary: Effort: Pulmonary effort is normal. No respiratory distress. Breath sounds: Normal breath sounds. No wheezing, rhonchi or rales. Abdominal: General: Bowel sounds are normal. There is no distension. Palpations: Abdomen is soft. Tenderness: There is no abdominal tenderness. There is no guarding. Musculoskeletal: General: No swelling or deformity. Normal range of motion. Cervical back: Normal range of motion and neck supple. No tenderness. Skin: General: Skin is warm and dry. Capillary Refill: Capillary refill takes less than 2 seconds. Findings: Wound present. No rash. Comments: Left anterior lower leg with superficial skin tear, no surrounding erythema, no active bleeding, no purulent drainage. Neurological: General: No focal deficit present. Mental Status: She is alert and oriented to person, place, and time. Cranial Nerves: No cranial nerve deficit. Sensory: No sensory deficit. Motor: No weakness. Gait: Gait normal. Deep Tendon Reflexes: Reflexes normal. Psychiatric: Mood and Affect: Mood normal. Behavior: Behavior normal. Thought Content: Thought content normal. Judgment: Judgment normal. Assessment/Plan : The following health maintenance schedule was reviewed with the patient and provided in printed form in the after visit summary: Health Maintenance Topic Date Due Diabetes: Retinopathy Screening 08/12/2023 Medicare Annual Wellness (AWV) 06/23/2024 Diabetes: Hemoglobin A1C 09/11/2024 Diabetes: Urine Protein Screening 06/11/2025 Influenza Vaccine Completed Pneumococcal Vaccine: 65+ Years Completed Advance Care Planning Has ACP in place. Assessment/Plan Diagnoses and all orders for this visit: Medicare annual wellness visit, subsequent Reviewed all relevant preventative screenings with the patient in detail. Medicare Wellness form completed and will be scanned into patient's chart. All needed testing was ordered. Will continue withyearly Medicare Wellness exams. ACP (advance care planning) Patient willing to discuss ACP. Pt has Living Will and DPOA in place. Chronic insomnia This is a chronic medical condition that is stable since last assessment. No changes in treatment are suggested at this time. Degenerative lumbar spinal stenosis This is a chronic medical condition that is stable since last assessment. No changes in treatment are suggested at this time. Type 2 diabetes mellitus with other neurologic complication, without long-term current use of insulin ([facility]) This is a chronic medical condition that is stable since last assessment. No changes in treatment are suggested at this time. Will continue to monitor with routine labs. Entrapment of left ulnar nerve This is a chronic medical condition that is stable since last assessment. No changes in treatment are suggested at this time. Neuropathic pain This is a chronic medical condition that is stable since last assessment. No changes in treatment are suggested at this time. Peripheral neuralgia This is a chronic medical condition that is stable since last assessment. No changes in treatment are suggested at this time. Restless legs syndrome (RLS) This is a chronic medical condition that is stable since last assessment. No changes in treatment are suggested at this time. Asymptomatic varicose veins This is a chronic medical condition that is stable since last assessment. No changes in treatment are suggested at this time. Benign essential hypertension ([facility]) BP mildly elevated today. Will recheck at follow up. Continue current medications for now. Sinus arrhythmia This is a chronic medical condition that is stable since last assessment. No changes in treatment are suggested at this time. Altered bowel function The patient is seeing a senior medical writer for this condition, treatment is deferred to that specialist. Correspondence from that specialist and any available testing were reviewed during today's visit. Chronic constipation The patient is seeing a senior medical writer for this condition, treatment is deferred to that specialist. Correspondence from that specialist and any available testing were reviewed during today's visit. Cyst of pancreas (CMS/HCC) The patient is seeing a senior medical writer for this condition, treatment is deferred to that specialist. Correspondence from that specialist and any available testing were reviewed during today's visit. Diverticulosis of sigmoid colon The patient is seeing a senior medical writer for this condition, treatment is deferred to that specialist. Correspondence from that specialist and any available testing were reviewed during today's visit. Gastroesophageal reflux disease without esophagitis The patient is seeing a senior medical writer for this condition, treatment is deferred to that specialist. Correspondence from that specialist and any available testing were reviewed during today's visit. Hyperplastic polyp of large intestine The patient is seeing a senior medical writer for this condition, treatment is deferred to that specialist. Correspondence from that specialist and any available testing were reviewed during today's visit. Incontinence of feces, unspecified fecal incontinence type The patient is seeing a senior medical writer for this condition, treatment is deferred to that specialist. Correspondence from that specialist and any available testing were reviewed during today's visit. Irritable bowel syndrome with constipation The patient is seeing a senior medical writer for this condition, treatment is deferred to that specialist. Correspondence from that specialist and any available testing were reviewed during today's visit. Pseudopolyposis of colon, unspecified complication status, unspecified part of colon (CMS/HCC) The patient is seeing a senior medical writer for this condition, treatment is deferred to that specialist. Correspondence from that specialist and any available testing were reviewed during today's visit. Mixed stress and urge urinary incontinence This is a chronic medical condition that is stable since last assessment. No changes in treatment are suggested at this time. Renal cyst This is a chronic medical condition that is stable since last assessment. No changes in treatment are suggested at this time. Right nephrolithiasis This is a chronic medical condition that is stable since last assessment. No changes in treatment are suggested at this time. Acquired pes planovalgus of left foot The patient is seeing a senior medical writer for this condition, treatment is deferred to that specialist. Correspondence from that specialist and any available testing were reviewed during today's visit. Acquired pes planovalgus of right foot The patient is seeing a senior medical writer for this condition, treatment is deferred to that specialist. Correspondence from that specialist and any available testing were reviewed during today's visit. Bilateral sacroiliitis (CMS/HCC) This is a chronic medical condition that is stable since last assessment. No changes in treatment are suggested at this time. Degeneration of intervertebral disc of lumbar region with discogenic back pain This is a chronic medical condition that is stable since last assessment. No changes in treatment are suggested at this time. Dermatophytosis of nail The patient is seeing a senior medical writer for this condition, treatment is deferred to that specialist. Correspondence from that specialist and any available testing were reviewed during today's visit. Fat pad atrophy of foot The patient is seeing a senior medical writer for this condition, treatment is deferred to that specialist. Correspondence from that specialist and any available testing were reviewed during today's visit. Hallux limitus of left foot The patient is seeing a senior medical writer for this condition, treatment is deferred to that specialist. Correspondence from that specialist and any available testing were reviewed during today's visit. Hallux limitus of right foot The patient is seeing a senior medical writer for this condition, treatment is deferred to that specialist. Correspondence from that specialist and any available testing were reviewed during today's visit. Hallux valgus of left foot The patient is seeing a senior medical writer for this condition, treatment is deferred to that specialist. Correspondence from that specialist and any available testing were reviewed during today's visit. Hallux valgus of right foot The patient is seeing a senior medical writer for this condition, treatment is deferred to that specialist. Correspondence from that specialist and any available testing were reviewed during today's visit. Hammertoe of left foot The patient is seeing a senior medical writer for this condition, treatment is deferred to that specialist. Correspondence from that specialist and any available testing were reviewed during today's visit. Hammertoe of right foot The patient is seeing a senior medical writer for this condition, treatment is deferred to that specialist. Correspondence from that specialist and any available testing were reviewed during today's visit. Nail deformity The patient is seeing a senior medical writer for this condition, treatment is deferred to that specialist. Correspondence from that specialist and any available testing were reviewed during today's visit. Primary osteoarthritis of both knees The patient is seeing a senior medical writer for this condition, treatment is deferred to that specialist. Correspondence from that specialist and any available testing were reviewed during today's visit. Age-related osteoporosis without current pathological fracture ([facility]/HCC) This is a chronic medical condition that is stable since last assessment. No changes in treatment are suggested at this time. Will continue to monitor with routine DEXA Scans. Spondylolisthesis, unspecified spinal region This is a chronic medical condition that is stable since last assessment. No changes in treatment are suggested at this time. Acquired hypothyroidism (CMS/HCC) This is a chronic medical condition that is stable since last assessment. No changes in treatment are suggested at this time. Will continue to monitor with routine labs. Type 2 diabetes mellitus with hyperglycemia, without long-term current use of insulin (CMS/HCC) This is a chronic medical condition that is stable since last assessment. No changes in treatment are suggested at this time. Will continue to monitor with routine labs. Atopic dermatitis, unspecified type This is a chronic medical condition that is stable since last assessment. No changes in treatment are suggested at this time. Balance problem This is a chronic medical condition that is stable since last assessment. No changes in treatment are suggested at this time. Tinnitus of both ears The patient is seeing a senior medical writer for this condition, treatment is deferred to that specialist. Correspondence from that specialist and any available testing were reviewed during today's visit. Sensorineural hearing loss (SNHL), bilateral The patient is seeing a senior medical writer for this condition, treatment is deferred to that specialist. Correspondence from that specialist and any available testing were reviewed during today's visit. Risk for falls This is a chronic medical condition that is stable since last assessment. No changes in treatment are suggested at this time. Psoriasis, unspecified ([facility]/HCC) This is a chronic medical condition that is stable since last assessment. No changes in treatment are suggested at this time. Pre-ulcerative calluses The patient is seeing a senior medical writer for this condition, treatment is deferred to that specialist. Correspondence from that specialist and any available testing were reviewed during today's visit. Other allergic rhinitis This is a chronic medical condition that is stable since last assessment. No changes in treatment are suggested at this time. Mixed hyperlipidemia (CMS/HCC) This is a chronic medical condition that is stable since last assessment. No changes in treatment are suggested at this time. Will continue to monitor with routine labs. Macular degeneration of both eyes, unspecified type The patient is seeing a senior medical writer for this condition, treatment is deferred to that specialist. Correspondence from that specialist and any available testing were reviewed during today's visit. Localized edema This is a chronic medical condition that is stable since last assessment. No changes in treatment are suggested at this time. Impaired ambulation This is a chronic medical condition that is stable since last assessment. No changes in treatment are suggested at this time. History of partial colectomy The patient is seeing a senior medical writer for this condition, treatment is deferred to that specialist. Correspondence from that specialist and any available testing were reviewed during today's visit. Ganglion cyst The patient is seeing a senior medical writer for this condition, treatment is deferred to that specialist. Correspondence from that specialist and any available testing were reviewed during today's visit. Skin tear of lower leg, without complication, left, initial encounter Wound cleaned with hydrogen peroxide. Clean dressing applied. Clean gently daily with soap and water. Keep covered until scab has formed. Monitor for any s/s of infection. Contact office with any concerns. Exudative age-related macular degeneration, with inactive choroidal neovascularization The patient is seeing a senior medical writer for this condition, treatment is deferred to that specialist. Correspondence from that specialist and any available testing were reviewed during today's visit. Vitreous hemorrhage, bilateral The patient is seeing a senior medical writer for this condition, treatment is deferred to that specialist. Correspondence from that specialist and any available testing were reviewed during today's visit. Follow up for Appointment As Scheduled. Electronically signed by Analy Martinez PA-C on July 02, 2024 documented in this encounterCameron Regional Medical [id number] History of Present illness Narrative* Conrado Ambriz MD - 06/11/2024 11:15 AM EDT Images from the original note were not included. Subjective Patient ID: Elizabeth Ramirez is a 88 y.o. female who presents for Diabetes and Sinusitis. Diabetes Mellitus Patient presents for follow up of diabetes. Current symptoms include: none. Patient denies foot ulcerations, hypoglycemia , polydipsia, polyuria, and vomiting. Evaluation to date has included: fasting blood sugar, fasting lipid panel, and hemoglobin A1C. Home sugars: BGs range between 130 and 140 Pt has had headache,sinus pressure,postnasal drainage,cough,nasal drainage x 7- 10 days Diabetes Sinusitis Associated symptoms include coughing. Hypertension Med Refill Associated symptoms include coughing. Current Outpatient Medications on File Prior to Visit Medication Sig Dispense Refill amLODIPine (Norvasc) 5 MG tablet Take 1 tablet (5 mg) by mouth Daily 90 tablet 0 b complex vitamins capsule Take 1 capsule by mouth in the morning. benazepril (Lotensin) 20 MG tablet Take 1 tablet (20 mg) by mouth Daily 90 tablet 3 cyanocobalamin (Vitamin B-12) 100 MCG tablet Take 100 mcg by mouth in the morning. gabapentin (Neurontin) 300 MG capsule Take 1 capsule (300 mg) by mouth in the morning and 1 capsule(300 mg) before bedtime. 180 capsule 3 glyBURIDE (Diabeta) 5 MG tablet Take 1 tablet (5 mg) by mouth in the morning and 1 tablet (5 mg) inthe evening. Take with meals. 180 tablet 3 Januvia 100 MG tablet TAKE ONE TABLET BY MOUTH EVERY DAY 90 tablet 2 levothyroxine (Synthroid, Levoxyl) 50 MCG tablet Take 1 tablet (50 mcg) by mouth Daily 100 tablet 3 meloxicam (Mobic) 7.5 MG tablet Take 1 tablet (7.5 mg) by mouth Daily 90 tablet 3 rOPINIRole (Requip) 1 MG tablet Take 1 tablet (1 mg) by mouth at bedtime 90 tablet 3 triamcinolone (Kenalog) 0.1 % cream APPLY TO TRUNK,ARMS, AND LEGS, TWICE A DAY No current facility-administered medications on file prior to visit. I have reviewed and reconciled the history and medication list with the patient today. Allergies Allergen Reactions Hylan G-F 20 Swelling Other Reaction(s): Edema Metformin Diarrhea Moxifloxacin Hives Simvastatin GI intolerance and Nausea And Vomiting Ciprofloxacin Rash Ciprofloxacin Hcl Rash Temazepam Rash Other Reaction(s): rash, sore mouth Wound Dressing Adhesive Rash Social History Tobacco Use Smoking status: Never Smokeless tobacco: Never Substance Use Topics Alcohol use: Never Comment: caffeine: Yes, coffee tea Drug use: Never Family History Problem Relation Name Age of Onset Stroke Mother Heart disease Father Leukemia Sister Melanoma Neg Hx Past Medical History: Diagnosis Date Arthritis Back problem Diverticulosis Ganglion cyst Hearing loss of right ear, unspecified hearing loss type History of being hospitalized 06/2015 3 days for surgery History of sinus problem Hypertension (CMS/HCC) Knee problem Macular degeneration Onychomycosis Osteoporosis (CMS/HCC) Rotator cuff tear, left Rotator cuff tear, right Sepsis secondary to UTI (CMS/HCC) 04/30/2022 Type 2 diabetes mellitus ([facility]) Visual impairment w/corrective lenses Past Surgical History: Procedure Laterality Date BACK SURGERY 07/28/[address] Joel BUCCAL MASS EXCISION Right CHOLECYSTECTOMY COLECTOMY [address] Marie COLONOSCOPY COLONOSCOPY W/ POLYPECTOMY 05/20/2021 COLONOSCOPY W/ POLYPECTOMY 05/23/2024 GANGLION CYST EXCISION 2001 Dr. Martini HYSTERECTOMY KNEE SURGERY Left Arthroscopy Knee- Dr. José LUMBAR TRANSFORAMINAL EPIDURAL STEROID INJECTION 11/18/2020 LUMBAR TRANSFORAMINAL EPIDURAL STEROID INJECTION 12/30/2020 NERVE BLOCK Bilateral 04/22/2020 L2-L5 Nerve Blocks NERVE BLOCK Bilateral 05/13/2020 L2-L4 Nerve Blocks OTHER SURGICAL HISTORY Right R/O buccal mass 3-12-13 Dr. Williamson RADIOFREQUENCY ABLATION Left 07/08/2020 L2-L4 RFA RADIOFREQUENCY ABLATION Right 06/26/2020 L2-L4 RFA ROTATOR CUFF REPAIR Left 2006 SHOULDER OPEN ROTATOR CUFF REPAIR Right 2001 TUMOR EXCISION Left Fatty tumor excised shoulder Visit Vitals Ht 5' 4 BMI 24.72 kg/m Smoking Status Never BSA 1.72 m Review of Systems Respiratory: Positive for cough. Objective Physical Exam Constitutional: General: She is not in acute distress. Appearance: Normal appearance. She is well-developed. HENT: Head: Normocephalic and atraumatic. Right Ear: Tympanic membrane and ear canal normal. Left Ear: Tympanic membrane and ear canal normal. Nose: Congestion present. Mouth/Throat: Mouth: Mucous membranes are moist. Pharynx: Posterior oropharyngeal erythema present. Eyes: General: No scleral icterus. Conjunctiva/sclera: Conjunctivae normal. Neck: Thyroid: No thyromegaly. Cardiovascular: Rate and Rhythm: Normal rate and regular rhythm. Heart sounds: Normal heart sounds. No murmur heard. Pulmonary: Effort: Pulmonary effort is normal. No respiratory distress. Breath sounds: Normal breath sounds. No wheezing, rhonchi or rales. Abdominal: General: Abdomen is flat. Bowel sounds are normal. Palpations: Abdomen is soft. There is no mass. Lymphadenopathy: Cervical: No cervical adenopathy. Skin: General: Skin is warm and dry. Neurological: General: No focal deficit present. Mental Status: She is alert and oriented to person, place, and time. Psychiatric: Mood and Affect: Mood normal. Behavior: Behavior normal. Office Visit on 06/11/2024 Component Date Value Ref Range Status Hemoglobin A1C 06/11/2024 7.1 Final Assessment/Plan Diagnoses and all orders for this visit: Mixed hyperlipidemia (CMS/HCC) - Lipid panel; Future Type 2 diabetes mellitus with other neurologic complication, without long-term current use of insulin (CMS/HCC) - POCT Glycated hemoglobin, total - FSBS log shows good control, most recent A1C is at or near goal. Continue current treatment plan as previously outlined without changes. Flu vaccine need - Influenza, high-dose seasonal, quadrivalent, PF (LLE255) (Fluzone High Dose [place] 0.7mL dose) Acquired hypothyroidism (CMS/HCC) - TSH W/REFLEX TO FT4; Future Benign essential hypertension (CMS/HCC) - CBC and differential - Comprehensive metabolic panel; Future Acute non-recurrent sinusitis, unspecified location - cefdinir (Omnicef) 300 MG capsule; Take 1 capsule (300 mg) by mouth in the morning and 1 capsule (300 mg) before bedtime. Do all this for 7 days. No follow-ups on file. documented in this encounterCameron Regional Medical [id number] [facility] History of Present illness Narrative* Prem Morales DPM - 04/20/2024 9:15 AM EDT Images from the original note were not included. Reason for Visit Established patient: Recheck onychomycosis/nailcare History of Present Illness Established patient presents to clinic for debridement of elongated, mycotic toenails. Patient is not applying any anti-fungal medication to the toenails. Patient complains of pain in her LT hallux lateral nail border. Location: nails on bilateral feet. Severity of symptoms: mild. Onset: gradual. Status: no change. Context: hard to trim, hard to reach. NAILS: thickened, discolored, elongated. Relieved by: debridement, filing down nails, clipping nails. History of ulcers/wounds: no. Recent BS reading, if diabetic: 116. A1C on 12-19-2023 was 7.3. PCP: Conrado Ambriz. Date of Last visit: 01-02-24 Aggravated by: shoe gear, pressure. Risk factors: diabetes. Review of Systems General: Chills denies. Fatigue denies. Fever denies. Night sweats denies. Endocrine: Hyperpigmentation denies. Diabetes admits. Weakness denies. Cardiovascular: Chest pain denies. Shortness of breath denies. Gastrointestinal: Constipation denies. Diarrhea denies. Nausea denies. Vomiting denies. Hematology: Anemia denies. Bleeding problems denies. Easy bruising denies. Musculoskeletal: Bone/joint symptoms admits. Leg cramps denies. Peripheral Vascular: Edema denies. Rest pain denies. Varicose veins denies. Raynaud's denies. Skin: Ulceration denies. Nail changes denies. Rash denies. Skin lesion(s) denies. Neurologic: Dizziness denies. Gait abnormality denies. Headache denies. Tingling/Numbness denies. Examination General Examination: GENERAL EXAMINATION: awake, aware of surroundings, in no acute distress. FOOT EXAM: Date of Last Foot Exam: 09/27/2023 Sensory testing performed: sensations diminished Sensory and motor testing performed: strength diminished Pedal pulse taking performed: 2+ Vascular: DORSALIS PEDIS PULSE: 2/4 bilaterally. POSTERIOR TIBIAL PULSE:RT: 1/4 and LT. 0/4. TEMPERATURE GRADIENT: warm to cool. EDEMA: Minimal bilateral lower extremity. VARICOSITIES: present bilaterally. CAPILLARY FILLING TIME(sec): capillary fill intact bilateral digits less than 3 secs. Neurologic: VIBRATORY: diminished bilaterally. SEMMES-TATYANA 5.07 MONOFILAMENT: diminished bilaterally. NEUROLOGIC: peripheral neuropathy to the bilateral lower extremity: numbess to right foot in area of right 4,5 toes and ball of foot. Tingling to right foot with touch. Patient states balance is off. Uses a cane for ambulation assistance. Had previous physical therapy to improve balance and proprioception. Dermatologic: SKIN FINDINGS: skin is thin shiny atrophic dry with absent pedal hair to the bilateral lower extremity. HYPERKERATOSIS: Pre-ulcerative callus: right distal hallux - resolved. NAIL PATHOLOGY: nails 1-5 intact bilaterally. ULCER: ulcer left distal 3rd toe remains healed. Ankle / Foot: MUSCLE STRENGTH: 5-/5. Toes are weaker bilaterally. Orthopedic: FOOT MORPHOLOGY: pes plano valgus bilateral. JOINT RANGE OF MOTION: decreased to the bilateral foot first metatarsophalangeal joint. DEFORMITIES: hallux valgus bilateral, hallux limitus bilateral, hammertoes 2-5 bilateral: pain to right hammertoes 2-4. PAIN ELICITED WITH PALPATION OF: none today. ORTHOPEDIC: fat pad atrophy bilateral foot. SHOE GEAR EVALUATION: casual lace up shoes and OTC insoles. Nail Pathology: Right Foot: 1 (great toe) Long, non-dystrophic. 2 Long, Thick, Crumbly, Deformed, Discolored, Brittle, Dystrophic. 3 Long, Thick, Crumbly, Deformed, Discolored, Brittle, Dystrophic. 4 Long, non-dystrophic. 5 Long, Thick, Crumbly, Deformed, Discolored, Brittle, Dystrophic. Nail Pathology: Left Foot: 1 (great toe) Long, Thick, Crumbly, Deformed, Discolored, Brittle, Dystrophic - pain to medial nailborder. 2 Long, Thick, Crumbly, Deformed, Discolored, Brittle, Dystrophic. 3 Long, Thick, Crumbly, Deformed, Discolored, Brittle, Dystrophic. 4 Long, non-dystrophic. 5Long, non-dystrophic Modifier: - Q9. Assessments 1. Dermatophytosis of nail - B35.1, Elongated, mycotic toenails 2,3,5 right and 1,2,3 left 2. Pain left toenail - M79.675 - Left hallux medial nail border 3. Other specified disease of nail - L60.8, Elongated, non-mycotic toenails 1,4, right and 4,5 left 4. Pre-ulcerative calluses - L84, Right distal hallux - Resolved 5. DM neuro manif type II - E11.49 6. Localized edema - R60.0 7. Neuropathic pain - M79.2 8. Hammertoe of right foot - M20.41 9. Hammertoe of left foot - M20.42 10. Impaired ambulation - R26.2 11. Risk for falls - Z91.81 12. Balance problem - R26.89 13. Fat pad atrophy of foot - R29.898 14. 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 Hallux valgus of left foot - M20.12 16. Hallux limitus of right foot - M20.5X1 17. Hallux limitus of left foot - M20.5X2 18. Acquired pes planovalgus of right foot - M21.41 19. Acquired pes planovalgus of left foot - M21.42 20. Asymptomatic varicose veins - I83.90 Treatment Right plantar fasciitis 1. Patient seen today for follow up examination with continued right plantar foot arch pain. 2. Patient was advised to wear her good, supportive diabetic shoes and orthotics for all weightbearing activity. Dermatophytosis of nail 1. Patient seen today for follow up examination. Patient has pain to left hallux medial nail border. 2. I debrided elongated, onychomycotic toenails 2,3,5 right and 1,2,3 left via manual and mechanical means. 3. Patient should wash and dry bilateral foot twice a day and start application of topical Tolcylentwice a day to all ten toenails until full resolution of onychomycosis. Patient declined purchase of Tolcylen today. 4. Patient should seek assistance with debridement of toenails at home with emery board, not using same surface twice, to avoid recontamination. 5. Reappoint 63 days. Pain left toenail 1. Patient seen today for follow up examination. Patient has pain to left hallux medial nail border. 2. I debrided elongated, onychomycotic toenails 2,3,5 right and 1,2,3 left via manual and mechanical means. 3. Patient should wash and dry bilateral foot twice a day and start application of topical Tolcylentwice a day to all ten toenails until full resolution of onychomycosis. Patient declined purchase of Tolcylen today. 4. Patient should seek assistance with debridement of toenails at home with emery board, not using same surface twice, to avoid recontamination. 5. Reappoint 63 days. Other specified disease of nail 1. Patient was seen for followup examination. 2. I debrided elongated, non-dystrophic toenails 1,4 right and 4,5 left via manual and mechanical means. 3. Reappoint in 63 days. DM neuro manif type II 1. Patient advised to always maintain proper diabetic control. 2. Patient advised to wash and dry bilateral foot once daily and apply a good moisturizing cream tobilateral lower extremity, except for in between toes, post bathing to keep skin from becoming too dry. 3. Patient advised to perform daily foot inspections and observe for any signs of skin breakdown. 4. Patient should continue to take Gabapentin 300 mg, one capsule twice a day, for treatment of neuropathy symptoms. 5. Patient should continue to wear diabetic shoes and insoles for all weightbearing activity. Impaired ambulation 1. Patient is performing home exercises from physical therapy to improve her balance. She does not feel she needs any further formal physical therapy at this time. Risk for falls 1. Patient is performing home exercises from physical therapy to improve her balance. She does not feel she needs any further formal physical therapy at this time. Balance problem 1. Patient is performing home exercises from physical therapy to improve her balance. She does not feel she needs any further formal physical therapy at this time. documented [facility] [id number] Evaluation note* Encounter Date Diagnosis Assessment Notes Treatment Notes Treatment Clinical Notes Jul, Diarrhea (ICD-10 - R19.7) Stool sutdies as indicated above Start Imodium 1 tablet every morning Flex sig Jul, Fecal incontinence (ICD-10 - R15.9) [employer] Other 12-17-2021 Reason for visit NarrativePATIENT HERE AT THE REQUEST OF DR. AMBRIZ FOR EVALUATION & TREATMENT OF DIARRHEA, 08/14/21 OBTAIN ED COLONOSCOPY FROM [facility] MESSAGE AT DR MACKEY'S OFFICE FOR PATHOLOGY REPORT TO BE FAXEDNort [employer] Other 09-22-2021 NoteOPERATIVE NOTE OPERATION DATE: 05-20-21 ANESTHETIC:Monitored anesthesia care. [...] Room in good condition. cc:Dr. Conrado Ambriz. [facility] Signed and Approved by: DR JESSICA MACKEY . 05/20/2021 11:18:00[facility] CenterEvaluation noteNo InformationNort [employer] Other Evaluation noteNo assessment information available [facility] Work Phone: Evaluation note* Diagnosis Onset Date Resolution Status Change in bowel habits acute Change in stool caliber acut e Irritable bowel syndrome with constipation acute Rectal bleeding acute [facility] Work Phone: Evaluation note* Diagnosis Mixed hyperlipidemia (CMS/HCC)- Primary Mixed hyperlipidemia Type 2 diabetes mellitus with other neurologic complication, without long-term current use of insulin (CMS/HCC) Flu vaccine need Acquired hypothyroidism (CMS/HCC) Unspecified hypothyroidism Benign essential hypertension (CMS/HCC) Essential hypertension, benign Acute non-recurrent sinusitis, unspecified location [facility]* Diagnosis Onset Date Resolution Status Change in bowel habits acute Change in stool caliber acut e Irritable bowel syndrome with constipation acute Rectal bleeding acute Irritable bowel syndrome with constipation acute [facility] Work Phone: Evaluation note* Diagnosis Medicare annual wellness visit, subsequent- Primary ACP (advance care planning) Other specified counseling Chronic insomnia Insomnia, unspecified Degenerative lumbar spinal stenosis Spinal stenosis of lumbar region Type 2 diabetes mellitus with other neurologic complication, without long-term current use of insulin (CMS/HCC) Entrapment of left ulnar nerve Neuropathic pain Peripheral neuralgia Unspecified hereditary and idiopathic peripheral neuropathy Restless legs syndrome (RLS) Asymptomatic varicose veins Benign essential hypertension (CMS/HCC) Essential hypertension, benign Sinus arrhythmia Other specified cardiac dysrhythmias Altered bowel function Other symptoms involving digestive system Chronic constipation Unspecified constipation Cyst of pancreas (CMS/HCC) Cyst and pseudocyst of pancreas Diverticulosis of sigmoid colon Gastroesophageal reflux disease without esophagitis Esophageal reflux Hyperplastic polyp of large intestine Incontinence of feces, unspecified fecal incontinence type Irritable bowel syndrome with constipation Irritable bowel syndrome Pseudopolyposis of colon, unspecified complication status, unspecified part of colon (CMS/HCC) Mixed stress and urge urinary incontinence Mixed incontinence urge and stress (male)(female) Renal cyst Unspecified congenital cystic kidney disease Right nephrolithiasis Acquired pes planovalgus of left foot Acquired pes planovalgus of right foot Bilateral sacroiliitis (CMS/HCC) Degeneration of intervertebral disc of lumbar region with discogenic back pain Dermatophytosis of nail Fat pad atrophy of foot Hallux limitus of left foot Hallux limitus of right foot Hallux valgus of left foot Hallux valgus of right foot Hammertoe of left foot Hammertoe of right foot Nail deformity Unspecified disease of nail Primary osteoarthritis of both knees Age-related osteoporosis without current pathological fracture (CMS/HCC) Spondylolisthesis, unspecified spinal region Acquired hypothyroidism (CMS/HCC) Unspecified hypothyroidism Type 2 diabetes mellitus with hyperglycemia, without long-term current use of insulin (CMS/HCC) Atopic dermatitis, unspecified type Balance problem Abnormality of gait Tinnitus of both ears Unspecified tinnitus Sensorineural hearing loss (SNHL), bilateral Risk for falls Psoriasis, unspecified (CMS/HCC) Pre-ulcerative calluses Other allergic rhinitis Mixed hyperlipidemia (CMS/HCC) Mixed hyperlipidemia Macular degeneration of both eyes, unspecified type Localized edema Edema Impaired ambulation History of partial colectomy Ganglion cyst Unspecified ganglion Skin tear of lower leg without complication, left, initial encounter Exudative age-related macular degeneration, bilateral, with inactive choroidal neovascularization ([facility]) Vitreous hemorrhage, bilateral ([facility]) Vitreous hemorrhage documented in this encounter [facility]* Diagnosis Onychomycosis- Primary Dermatophytosis of nail Pain around toenail, left foot Type 2 diabetes mellitus with other neurologic complication, 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 senior living insulin use ([facility]) Localized edema Edema documented [facility]* Diagnosis Acute cystitis without hematuria- Primary Gastroesophageal reflux disease, 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 esophagitis present Acute non-recurrent sinusitis, unspecified location [facility]* Diagnosis Onychomycosis- Primary Dermatophytosis of nail Pain around toenail, left foot Nail deformity Unspecified disease of nail Type 2 diabetes mellitus with other neurologic complication, 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 ([facility]) Localized edema Edema Ingrown toenail Ingrowing nail documented in this encounter [facility]* Diagnosis Type 2 diabetes mellitus with other neurologic complication, without long-term current use of insulin ([facility])- Primary Gastroesophageal reflux disease, 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 esophagitis present Mixed stress and urge urinary incontinence Mixed incontinence urge and stress (male)(female) documented in this encounter [facility]* Diagnosis Ingrown toenail of both feet- Primary Onychomycosis Dermatophytosis of nail Pain around toenail, left foot Pain around toenail, right foot Type 2 diabetes mellitus with other neurologic complication, 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 ([facility]) Localized edema Edema Nail deformity Unspecified disease of nail documented in this encounter [facility]* Diagnosis Encounter for diabetic foot exam ([facility])- Primary Type 2 diabetes mellitus with other neurologic complication, without long-term current use of insulin ([facility]) Neuropathic pain Acute non-recurrent frontal sinusitis Restless legs syndrome (RLS) Bilateral impacted cerumen Impacted cerumen Exudative age-related macular degeneration, bilateral, with inactive choroidal neovascularization ([facility]) Vitreous hemorrhage, bilateral ([facility]) Vitreous hemorrhage Inflammatory polyps of colon without complications ([facility]/HCC) Inflammatory polyps of colon with rectal bleeding (CMS/HCC) [facility]* Diagnosis Acute non-recurrent frontal sinusitis- Primary Type 2 diabetes mellitus with other neurologic complication, without long-term current use of insulin Psoriasis Other psoriasis Primary osteoarthritis of right shoulder [facility]* Diagnosis Right shoulder pain, unspecified chronicity Primary osteoarthritis of right shoulder [facility]* Diagnosis Benign essential hypertension (CMS/HCC) Essential hypertension, benign Acquired hypothyroidism (CMS/HCC) Unspecified hypothyroidism Degenerative disc disease, lumbar [facility]* Diagnosis Type 2 diabetes mellitus with other neurologic complication, 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 senior living insulin use (CMS/HCC) Onychomycosis Dermatophytosis of nail Nail deformity Unspecified disease of nail Pain around toenail, left foot Localized edema Edema documented [facility]* Diagnosis Type 2 diabetes mellitus with other neurologic complication, without long-term current use of insulin- Primary Acute non-recurrent frontal sinusitis Mixed hyperlipidemia (CMS/HCC) Mixed hyperlipidemia Acquired hypothyroidism (CMS/HCC) Unspecified hypothyroidism Type 2 diabetes mellitus with peripheral neuropathy (CMS/HCC) documented [facility]* Diagnosis Onychomycosis Dermatophytosis of nail Nail deformity Unspecified disease of nail Type 2 diabetes mellitus with other neurologic complication, 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 (HCC) Localized edema Edema documented in this encounter [facility] Author Sadiq Barton [facility] May 23, 2024 9:09am Note Date/Time May 23, 2024 9:10am [facility] [address] [place] [address] Gastroenterology H&P Signed Patient: Elizabeth Ramirez MR#: [id number] : 1935 Acct:[id number] Age/Sex: 88 / F Adm Date: 4 Loc: Room: Type: [facility] Attending Dr: Sadiq Barton MD Copies to: MD Conrado Tanner II, MD~ Date of Service: 05/23/2024 HISTORY & PHYSICAL: Patient's history with special attention to the cardiovascular, pulmonary systems and the current problem was reviewed with the patient immediately prior to the procedure. Present medications and doses reviewed in the EMR. Allergies and pertinent laboratory tests were also reviewedat this time in the EMR. The physical examination, as below, was then performed. Indication, assessment and HPI: 88-year-old female presents for colonoscopy to evaluate change in bowel habits with constipation, change in stool caliber, rectal bleeding Family history of GI malignancy? no PHYSICAL EXAMINATION Mouth and Pharynx : moist mucus membranes, normal dentition Cardiac: regular rate, regular rhythm Pulmonary: normal respiratory effort, able to speak in complete sentences Neurological: alert and oriented x3, no focal deficits noted Abdomen: Abdomen soft, non-tender REVIEW OF SYSTEMS Constitutional: Denies malaise, fevers Cardiovascular: Denies chest pain, palpitations Respiratory: Denies shortness of breath, wheezing Gastrointestinal: Per HPI Genitourinary: Denies dysuria, polyuria Musculoskeletal: Denies joint swelling, joint stiffness Neurological: Denies numbness, tingling Integumentary: Denies rashes, skin lesions Endocrine: Denies fatigue, weight loss Written informed consent obtained from the patient. Risks (including but not limited to perforation, infection, bloating, bleeding, need for emergent surgeryand loss of life), benefits and alternatives explained and questions answered. The patient verbalized understanding. Based on history patient is an appropriate candidate for the procedure. Sadiq Barton MD Documented By: Sadiq Barton MD 05/23/24908 Signed By: <Electronically signed by Sadiq Barton MD> 05/23/24 09 [facility] Work Phone: History general Narrative - Reported* Type Description Date Medical History Type 2 diabetes Medical History osteoporosis Medical History hypertension Medical History diverticulosis Medical History arthrits Medical History macular degeneration Surgical History fatty tumor left shoulder Surgical History right rotatorcuff Surgical History left rotator cuff Surgical History excision of ganglion cyst Surgical History cholycyctectomy Surgical History hysterectomy Surgical History lumbar back surgery Hospitalization History SEE ABOVE [employer] Other Hospital Discharge instructions Additional Instructions Continue current meds Follow-up with your private physician Return if symptoms are worse[facility] [place] [facility]: Hospital Discharge instructions Additional Instructions DISCHARGE INSTRUCTIONS FOR COLONOSCOPY WHAT TO EXPECT: - You may feel full, gassy or cramping after your procedure. In some cases, this may be from a few hours to a day. Walking may help relieve the discomfort. - If you have polyp(s) removed you may note some minor bloody discharge after your first bowel movements. - You should begin to recover from anesthesia within 1 hour of the procedure, however may feel groggy for the next 24 hours. DO's AND DON'Ts: - Call your doctor right away if you have a hard abdomen, severe pain, are passing lots of bright red blood or clots. - Call your doctor if you develop any rashes, hives or difficulty breathing. - Let your doctor know if you have not had a bowel movement by 3 days after your procedure. - If you take 81 mg aspirin for your heart it is safe to resume this medication. - If you take other blood thinner medications your doctor will instruct you when these can safely be resumed. - Do NOT drive for 24 hours. - Do NOT operate machinery such as power tools, lawn mowers, snow blowers, sewing machines, etc. for 24 hours. - Avoid alcoholic beverages and drugs for allergies, nerves, or sleep. - Do NOT stay alone. Do NOT leave your child unattended. - Do NOT make important personal or business decisions or sign any legal documents. - Eat solid foods and drink liquids in smaller amounts than usual until normal appetite returns. If you should experience an upset stomach, liquids high in sugar content (soda, Arnaud-Aid, non-acid juices) are recommended. - You can resume normal activities tomorrow. FOLLOW UP & RECOMMENDATIONS: -The GI office will schedule you a follow-up appointment. -You can restart your Eliquis in 2 days. -Notify the doctor if you have any problems. -Follow up with PCP. -Office number [phone].[facility] Work Phone: Summary Purpose Family History No Family History Records Found Relationship Condition Age at Onset Recorded Date/T sher father Heart problem Unknown Relationship Condition Age at Onset Recorded Date/T sher father Heart problem Unknown father Unknown Heart disease Unknown mother History of stroke Unknown Unknown Relationship Condition Age at Onset Recorded Date/T sher father Heart problem Unknown Unknown Heart disease Unknown mother Unknown History of stroke Unknown Advance Directives No Advanced Directives Records Found Advance Directive Response Recorded Date/ Time Advance Directives No September 03, 2021 12:14pm Advance Directive Response Recorded Date/ Time Advance Directives No September 03, 2021 11:14am Chief Complaint and Reason for Visit Chief Complaint rectal bleeding Chief Complaint IBS-C/Ref Conrado Pedro ry Reason for Visit Change in bowel habi ts Change in stool caliber Irritable bowel syndrome with constipation Rectal bleeding Chief Complaint IBS-C/Ref Conrado Pedro ry constipation, rectal bleeding. constipation, rectal bleeding. Reason for Visit Change in bowel habi ts Change in stool caliber Irritable bowel syndrome with constipation Rectal bleeding Chief Complaint IBS-C/Ref Conrado Pedro ry constipation, rectal bleeding. constipation, rectal bleeding. 4 week follow up-constipation Reason for Visit Change in bowel habi ts Change in stool caliber Irritable bowel syndrome with constipation Rectal bleeding Irritable bowel syndrome with constipation Chief Complaint Admit Date 1 month follow up July 24, 2024 1:16pm 2 month follow up October 03, 2024 1 :11pm Reason for Visit Admit Date Irritable bowel syndrome with constipati on July 24, 2024 1:16pm Chronic GERD October 03, 2024 1 :11pm Irritable bowel syndrome with constipati on October 03, 2024 1:11pm Chief Complaint Admit Date 1 month follow up July 24, 2024 1:16pm 2 month follow up October 03, 2024 1 :11pm R19.7 October 15, 2024 1:34pm Chief Complaint Admit Date 2 month follow up October 03, 2024 1 :11pm R19.7 October 15, 2024 1:34pm 1 month follow up/constipation October 1:45pm Reason for Visit Admit Date Chronic GERD October 03, 2024 1 :11pm Irritable bowel syndrome with constipati on October 03, 2024 1:11pm Chronic GERD November 14, 2024 1:4 5pm Diarrhea November 14, 2024 1:4 5pm Incontinence November 14, 2024 1:4 5pm Irritable bowel syndrome with constipati on November 14, 2024 1:45pm Chief Complaint Admit Date R19.7 October 15, 2024 1:34pm 1 month follow up/constipation October 1:45pm 6 week follow up January 08, 2025 2:58p m Reason for Visit Admit Date Chronic GERD November 14, 2024 1:4 5pm Diarrhea November 14, 2024 1:4 5pm Incontinence November 14, 2024 1:4 5pm Irritable bowel syndrome with constipati on November 14, 2024 1:45pm Additional Source Comments INFORMATION SOURCE (unrecogn ized section and content) DATE CREATED AUTHOR 06/04/2021 [facility] DATE CREATED AUTHOR AUTHOR'S ORGANIZ ATION 01/18/2022 [facility] DATE CREATED AUTHOR AUTHOR'S ORGANIZ ATION 05/07/2022 [facility] DATE CREATED AUTHOR AUTHOR'S ORGANIZ ATION 10/16/2024 [facility] DATE CREATED AUTHOR AUTHOR'S ORGANIZ ATION 02/07/2025 [facility] DATE CREATED AUTHOR AUTHOR'S ORGANIZ ATION 04/07/2025 [facility] EPIC REASON FOR VISIT (unrecogniz ed section and content) Reason Comments Diabetes Sinusitis Reason Comments Sinusitis Reason Comments GERD Taking omeprazole as directed recheck for UTI Med Refill Omeprazole-- [facility] Psoriasis Pt has seen derm in past dx: psoriasis pt is wanting to know what causes psoriasis and if there is something besides the cream to treat it Reason Comments Sinusitis DM Foot Care Night Sweats Reason Comments Diabetes Shoulder Injury would like to have ears and chest checke d Pt finished abx feels better but would like ears and chest checked again Reason Comments Pain Specialty Diagnoses / Procedures Referred By Contayleen t Referred To Contact Orthopaedic Surgery Diagnoses Primary osteoarthritis of right shoulder Conrado Ambriz MD [address] [facility] [address] [place] [address] Phone: tel: fax: Jr. Bill Marcum, DO [address] [place] [address] Phone: tel:[phone] fax:[phone] Referral ID Status Reason Start Date Expiration Date V isits Requested Visits Authorized [id number] Closed Specialty Services Required 11/29/2024 05/28/2025 1 1 Reason Comments Med Refill Care Teams (unrecognized sec tion and content) Team Status: Active Member Role Status Dates Conrado Ambriz II MD Primary Care Provider Active Team Status: Inactive Member Role Status Dates Fernando Diamond MD Emergency Provider Active Conrado Ambriz II MD Primary Care Provider Active Team Status: Inactive Member Role Status Dates Conrado Ambriz II MD Primary Care Provider Active Start: April 16, 2024 End: April 16, 2024 Sadiq Barton MD Attending Provider Active S tart: April 16, 2024 End: April 16, 2024 Team Status: Inactive Member Role Status Dates Conrado Ambriz II MD Primary Care Provider Active Start: May 23, 2024 End: May 23, 2024 Sadiq Barton MD Attending Provider Active S tart: May 23, 2024 End: May 23, 2024 Team Status: Active Member Role Status Dates Conrado Ambriz II MD Primary Care Provider Active Start: May 23, 2024 Sadiq Barton MD Attending Provider, Other Provider Active Start: May 23, 2024 [employer] Director Relationship Specialty Start Date End Date Conrado Ambriz MD [address] [facility] [address] [place] [address] PCP - General Internal Medicine 01/19/23 Conrado Ambriz MD [address] [place] [address] [place] [address] PCP - ACO Reach 10/28/23 [employer] Director Relationship Specialty Start Date End Date Conrado Ambriz MD [address] [place] [address] [place] [address] PCP - General Internal Medicine 01/19/23 Conrado Ambriz MD [address] [place] [address] [place] [address] PCP - ACO Reach 10/28/23 Team Status: Inactive Member Role Status Dates Conrado Ambriz II MD Primary Care Provider Active Start: June 20, 2024 End: June 20, 2024 Nayan Dominguez APRN Attending Provider Active Start: June 20, 2024 End: June 20, 2024 [employer] Director Relationship Specialty Start Date End Date Conrado Ambriz MD [address] [place] [address] [place] [address] PCP - General Internal Medicine 01/19/23 Conrado Ambriz MD [address] [place] [address] [place] [address] PCP - ACO Reach 10/28/23 [employer] Director Relationship Specialty Start Date End Date Conrado Ambriz MD [address] [place] [address] [place] [address] PCP - General Internal Medicine 01/19/23 Conrado Ambriz MD [address] [place] [address] [place] [address] PCP - ACO Reach 10/28/23 Accelerator Systems Director Relationship Specialty Start Date End Date Conrado Ambriz MD [address] [place] [address] [place] [address] PCP - General Internal Medicine 01/19/23 Conrado Ambriz MD [address] [place] [address] [place] [address] PCP - ACO Reach 10/28/23 Accelerator Systems Director Relationship Specialty Start Date End Date Conrado Ambriz MD [address] [place] [address] [place] [address] PCP - General Internal Medicine 01/19/23 Conrado Ambriz MD [address] [place] [address] [place] [address] PCP - ACO Reach 10/28/23 Accelerator Systems Director Relationship Specialty Start Date End Date Conrado Ambriz MD [address] [place] [address] [place] [address] PCP - General Internal Medicine 01/19/23 Conrado Ambriz MD [address] [place] [address] [place] [address] PCP - ACO Reach 10/28/23 Accelerator Systems Director Relationship Specialty Start Date End Date Conrado Ambriz MD [address] [place] [address] [place] [address] PCP - General Internal Medicine 01/19/23 Conrado Ambriz MD [address] [place] [address] [place] [address] PCP - ACO Reach 10/28/23 Accelerator Systems Director Relationship Specialty Start Date End Date Conrado Ambriz MD [address] [place] [address] [place] [address] PCP - General Internal Medicine 01/19/23 Conrado Ambriz MD [address] [place] [address] [place] [address] PCP - ACO Reach 10/28/23 Accelerator Systems Director Relationship Specialty Start Date End Date Conrado Ambriz MD [address] [place] [address] [place] [address] PCP - General Internal Medicine 01/19/23 Conrado Ambriz MD [address] [place] [address] [place] [address] PCP - ACO Reach 10/28/23 Accelerator Systems Director Relationship Specialty Start Date End Date Conrado Ambriz MD [address] [place] [address] [place] [address] PCP - General Internal Medicine 01/19/23 Conrado Ambriz MD [address] [place] [address] [place] [address] PCP - ACO Reach 10/28/23 Team Status: Inactive Member Role Status Dates Conrado Ambriz II MD Primary Care Provider Active Start: July 24, 2024 End: July 24, 2024 Nayan Dominguez APRN Attending Provider Active Start: July 24, 2024 End: July 24, 2024 Team Status: Inactive Member Role Status Dates Conrado Ambriz II MD Primary Care Provider Active Start: October 03, 2024 End: October 03, 2024 Nayan Dominguez APRN Attending Provider Active Start: October 03, 2024 End: October 03, 2024 Team Status: Inactive Member Role Status Dates Conrado Ambriz II MD Primary Care Provider Active Start: October 15, 2024 End: October 15, 2024 Nayan Dominguez APRN Attending Provider Active Start: October 15, 2024 End: October 15, 2024 Accelerator Systems Director Relationship Specialty Start Date End Date Conrado Ambriz MD [address] [facility] [address] [place] [address] PCP - General Internal Medicine 01/19/23 Conrado Ambriz MD [address] [facility] [address] [place] [address] PCP - ACO Reach 10/28/23 Kristel Rain, VIDA Clinical Advocate Family [facility] 10/05/24 Accelerator Systems Director Relationship Specialty Start Date End Date Conrado Ambriz MD [address] [place] [address] [place] [address] PCP - General Internal Medicine 01/19/23 Conrado Ambriz MD [address] [place] [address] [place] [address] PCP - ACO Reach 10/28/23 Kristel Rain, RN Clinical Advocate Family Medicine 10/05/24 Accelerator Systems Director Relationship Specialty Start Date End Date Conrado Ambriz MD [address] [place] [address] [place] [address] PCP - General Internal Medicine 01/19/23 Conrado Ambriz MD [address] [place] [address] [place] [address] PCP - ACO Reach 10/28/23 Kristel Rain, RN Clinical Advocate Family Medicine 10/05/24 Team Status: Inactive Member Role Status Dates Conrado Ambriz II MD Primary Care Provider Active Start: November 14, 2024 End: November 14, 2024 Nayan Dominguez APRN Attending Provider Active Start: November 14, 2024 End: November 14, 2024 Accelerator Systems Director Relationship Specialty Start Date End Date Conrado Ambriz MD [address] [place] [address] [place] [address] PCP - General Internal Medicine 01/19/23 Conrado Ambriz MD [address] [place] [address] [place] [address] PCP - ACO Reach 10/28/23 Merna Lr LPN 11/16/24 Accelerator Systems Director Relationship Specialty Start Date End Date Conrado Ambriz MD [address] [place] [address] [place] [address] PCP - General Internal Medicine 01/19/23 Conrado Ambriz MD [address] [place] [address] [place] [address] PCP - ACO Reach 10/28/23 Merna Lr, [facility] 11/16/24 Accelerator Systems Director Relationship Specialty Start Date End Date Conrado Ambriz MD [address] [place] [address] [place] [address] PCP - General Internal Medicine 01/19/23 Conrado Ambriz MD [address] [place] [address] [place] [address] PCP - ACO Reach 10/28/23 Merna Lr, [facility] 11/16/24 Accelerator Systems Director Relationship Specialty Start Date End Date Conrado Ambriz MD [address] [place] [address] [place] [address] PCP - General Internal Medicine 01/19/23 Conrado Ambriz MD [address] [place] [address] [place] [address] PCP - ACO Reach 10/28/23 Merna Lr [facility] 11/16/24 Accelerator Systems Director Relationship Specialty Start Date End Date Conrado Ambriz MD [address] [place] [address] [place] [address] PCP - General Internal Medicine 01/19/23 Conrado Ambriz MD [address] [place] [address] [place] [address] PCP - ACO Reach 10/28/23 Merna Lr [facility] 11/16/24 Accelerator Systems Director Relationship Specialty Start Date End Date Conrado Ambriz MD [address] [place] [address] [place] [address] PCP - General Internal Medicine 01/19/23 Conrado Ambriz MD [address] [place] [address] [place] [address] PCP - ACO Reach 10/28/23 Merna Lr LPN 11/16/24 Accelerator Systems Director Relationship Specialty Start Date End Date Conrado Ambriz MD [address] [place] [address] [place] [address] PCP - General Internal Medicine 01/19/23 Conrado Amrbiz MD [address] [place] [address] [place] [address] PCP - ACO Reach 10/28/23 Merna Lr LPN 11/16/24 Team Status: Inactive Member Role Status Dates Conrado Ambriz II MD Primary Care Provider Active Start: January 08, 2025 End: January 08, 2025 Nayan Dominguez APRN Attending Provider Active Start: January 08, 2025 End: January 08, 2025 Accelerator Systems Director Relationship Specialty Start Date End Date Conrado Ambriz MD [address] [place] [address] [place] [address] PCP - General Internal Medicine 01/19/23 Conrado Ambriz MD [address] [place] [address] [place] [address] PCP - ACO Reach 10/28/23 Merna Lr LPN 11/16/24 Accelerator Systems Director Relationship Specialty Start Date End Date Conrado Ambriz MD [address] [place] [address] [place] [address] PCP - General Internal Medicine 01/19/23 Conrado Ambriz MD [address] [place] [address] [place] [address] PCP - ACO Reach 10/28/23 Merna Lr LPN 11/16/24 Accelerator Systems Director Relationship Specialty Start Date End Date Conrado Ambriz MD [address] [place] [address] [place] [address] PCP - General Internal Medicine 01/19/23 Conrado Ambriz MD [address] [place] [address] [place] [address] PCP - ACO Reach 10/28/23 Merna Lr LPN [address] [place] [address] [place] [address] 11/16/24 Accelerator Systems Director Relationship Specialty Start Date End Date Conrado Ambriz MD [address] [place] [address] [place] [address] PCP - General Internal Medicine 01/19/23 Conrado Ambriz MD [address] [place] [address] [place] [address] PCP - ACO Reach 10/28/23 Merna Lr LPN [address] [place] [address] [place] [address] 11/16/24 Goals (unrecognized section and content) Goals may [...] BE BASED ON THE PRIMARY CLINICAL RECORDS. [employer] [facility]. provides no warranty or guarantee of the accuracy or completeness of information in this document.
--- NOTE | 2025-04-12 10:21 | ECG_ITS ---
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 Measurements Intervals [place] Rate: 81 P: 33 MI: 172 QRS: 49 QRSD: 86 T: 72 QT: 386 QTc: 423 Interpretive Statements 1100 Sinus rhythm 1574 with frequent ventricular premature complexes 9140 abnormal rhythm ECG Compared to ECG 04/30/2022 03:12:21 Ventricular premature complex(es) now present Right bundle-branch block no longer present Electronically Signed On 04-12-2025 20:52:38 EDT by VALERIANO CARDENAS M.D.
--- NOTE | 2025-04-12 10:21 | CT_ITS ---
The [address] [address] Patient Name: JAMES WEAVER MRN: [id number] date: 1935 Sex: F Assigned Patient Location: ER Current Patient Location: ER Accession/Order Number: [id number] Exam Date: 04/12/2025 11:18 Report Date: 04/12/2025 11:27 At the request of: SARAH DOMÍNGUEZ MD Procedure: CT head/brain wo con CT BRAIN WITHOUT CONTRAST: CLINICAL HISTORY: Vertigo episode yesterday COMPARISON: None TECHNIQUE: Contiguous axial unenhanced images were obtained through the brain. This CT exam was performed using one or more following dose reduction techniques: Automated exposure control, adjustment of the mA and/or kV according to patient size, or use of iterative reconstruction technique. FINDINGS: There is no evidence of midline shift, intra or extra-axial fluid collection, hemorrhage or CT evidence of stroke. Cortical atrophy with chronic microvascular ischemic changes. Basal ganglia calcifications. Posterior fossa appears unremarkable. Visualized intraorbital contents demonstrate no acute findings. Visualized paranasal sinuses are clear. The surrounding soft tissues are normal. CT/CT head/brain wo con IMPRESSION: NO ACUTE INTRACRANIAL ABNORMALITY. Impression dictated by: Hugo Centeno Jr., D.O. 04/12/2025 11:27 AM Dictation Location: [place] [address] Electronically authenticated by: [id number] Y Date: 04/12/2025 11:27
--- NOTE | 2025-04-12 10:21 | ED.GENADUL1 ---
HPI HPI - General Adult General Chief complaint: Headache Stated complaint: DIZZY SPELL 04/11/2025, L LEG NUMBNESS Time Seen by Provider: 04/12/25 10:15 Source: patient and family Mode of arrival: walk-in Limitations: no limitations History of Present Illness HPI narrative: 89-year-old female presented to the emergency department for an episode of vertigo which occurred yesterday. She was sitting at a table and she felt a cracking sensation in her neck and that seemed to go all the way around her neck, bilateral. Then she felt like the room was spinning for a few minutes and then that spinning feeling stopped and has not recurred. Today she just feels a little bit off. She has a mild headache at the top of her head. There is no trauma and she does not take blood thinners. No localized weakness in her arms or legs. Related Data Home Medications ?Medication ?Instructions ?Recorded ?Confirmed amlodipine 5 mg tablet 5 mg PO DAILY 07/25/23 04/12/25 benazepril 20 mg tablet 20 mg PO DAILY 07/25/23 04/12/25 gabapentin 300 mg capsule 300 mg PO BID 07/25/23 04/12/25 levothyroxine 50 mcg capsule 50 mcg PO DAILY 07/25/23 04/12/25 ropinirole 0.25 mg tablet 0.25 mg PO DAILY 07/25/23 04/12/25 sitagliptin phosphate 100 mg 100 mg PO DAILY 07/25/23 04/12/25 tablet (Januvia) calcium 250 mg tablet 250 mg PO DAILY 04/12/25 04/12/25 cholecalciferol (vitamin D3) 25 25 mcg PO DAILY 04/12/25 04/12/25 mcg (1,000 unit) capsule glipizide 5 mg tablet 5 mg PO DAILY 04/12/25 04/12/25 lubiprostone 8 mcg capsule 8 mcg PO DAILY 04/12/25 04/12/25 (Amitiza) meloxicam 7.5 mg tablet 7.5 mg PO DAILY 04/12/25 04/12/25 omeprazole 40 mg capsule,delayed 40 mg PO DAILY 04/12/25 04/12/25 release ropinirole 1 mg tablet 0.5 mg PO DAILY 04/12/25 04/12/25 triamcinolone acetonide 0.1 % applic topical 04/12/25 topical cream Allergies Allergy/AdvReac Type Severity Reaction Status Date / Time simvastatin Allergy Verified 07/25/23 14:36 avelox Allergy Uncoded 07/25/23 14:36 synvisc Allergy Uncoded 07/25/23 14:36 Opioid HPI Opioid Management Most Recent Opioid Data: Last Pain Scale 4 Today, 10:06 Review of Systems ROS Narrative A ten point review of systems is negative except as noted above. PFSH PFSH Social History Little interest or pleasure in doing things: not at all Feeling down, depressed, or hopeless: not at all Exam Narrative Exam Narrative: Nurses note and vital signs reviewed and patient is not hypoxic. General: The patient appears well and in no apparent distress. Patient is resting comfortably on cart. Skin: Warm, dry, no pallor noted. There is no rash noted. Head: Normocephalic, atraumatic. Her neck has no mass or swelling or bruise or rash. Eye: Normal conjunctiva, no drainage Ears, Nose, Mouth, and Throat: oral mucosa is moist. Nares patent. Cardiovascular: Regular Rate and Rhythm Respiratory: Patient is in no distress, no accessory muscle use, lungs are clear to auscultation, no wheezing, rales or rhonchi Back: non-tender GI: Soft and nontender Musculoskeletal: The patient has no evidence of calf tenderness, no pitting edema, symmetrical pulses noted bilaterally Neurological: A&O, normal speech; upper and lower extremity strength is symmetric and intact. Psychiatric: Cooperative Constitutional Vital Signs, click to edit/add: Last Vital Signs Temp 98.6 F 04/12/25 10:06 Pulse 73 04/12/25 13:30 Resp 16 04/12/25 13:30 BP 139/83 04/12/25 13:30 Pulse Ox 98 04/12/25 13:30 O2 Del Method Room Air 04/12/25 10:06 Course Vital Signs Vital signs: Vital Signs Temperature 98.6 F 04/12/25 10:06 Pulse Rate 85 04/12/25 10:06 Respiratory Rate 18 04/12/25 10:06 Blood Pressure 149/83 H 04/12/25 10:06 Pulse Oximetry 97 04/12/25 10:06 Oxygen Delivery Method Room Air 04/12/25 10:06 Temperature 98.6 F 04/12/25 10:06 Pulse Rate 73 04/12/25 13:30 Respiratory Rate 16 04/12/25 13:30 Blood Pressure 139/83 04/12/25 13:30 Pulse Oximetry 98 04/12/25 13:30 Oxygen Delivery Method Room Air 04/12/25 10:06 Medical Decision Making MDM Narrative Medical decision making narrative: CT brain is negative and CTA of the head and neck shows some stenosis. This was reviewed with neurointerventionalist at [facility]. He has reviewed her symptoms and her scans and does not recommend any acute intervention. He does recommend the patient taking an aspirin daily and the patient was informed. She will follow-up with her PCP. Treatment diagnosis and follow-up were discussed with the patient. Differential Diagnosis Differential Diagnosis: Vertigo, stroke, vertebral artery dissection Lab Data Lab results reviewed: Yes I reviewed the patient's lab results Labs: Lab Results 04/12/25 Range/Units 10:14 WBC 10.0 (4.0-11.0) 10^3/uL RBC 4.85 (4.20-5.40) 10^6/uL Hgb 14.4 (12.0-16.0) g/dL Hct 43.1 (36.0-48.0) % MCV 88.9 (81.0-99.0) fL MCH 29.7 (26.7-34.0) pg MCHC 33.4 (29.9-35.2) g/dL RDW 14.3 (11.0-15.0) % Plt Count 211 (150-450) 10^3/uL MPV 11.2 (9.5-13.5) fL Neut % (Auto) 74.3 (43.0-75.0) % Lymph % (Auto) 18.6 L (20.5-60.0) % Cataño % (Auto) 5.6 (1.7-12.0) % Eos % (Auto) 0.4 L (0.9-7.0) % Baso % (Auto) 0.6 (0.2-2.0) % Neut # (Auto) 7.4 H (1.4-6.5) 10^3/uL Lymph # (Auto) 1.9 (1.2-3.8) 10^3/uL Cataño # (Auto) 0.6 (0.3-0.8) 10^3/uL Eos # (Auto) 0.0 (0.0-0.7) 10^3/uL Baso # (Auto) 0.1 (0.0-0.1) 10^3/uL Abs Immat Gran (auto) 0.05 H (0.00-0.03) 10^3/uL Imm/Tot Granulo (auto) 0.5 (0.0-0.5) % Sodium 137 (136-145) mmol/L Potassium 4.1 (3.5-5.1) mmol/L Chloride 101 (98-107) mmol/L Carbon Dioxide 25.5 (21.0-32.0) mmol/L Anion Gap 14.6 BUN 16.0 (7.0-18.0) mg/dL Creatinine 0.84 (0.55-1.02) mg/dL Est GFR ( Amer) >60 (>=60 mL/min/1.73m^2) Est GFR (Non-Af Amer) >60 (>=60 mL/min/1.73m^2) BUN/Creatinine Ratio 19.0 Glucose 313 H (74-106) mg/dL Calcium 8.9 (8.5-10.1) mg/dL Troponin I High Sens 4.3 (4.0-51.3) pg/mL Imaging Data CT scan - head: Radiologist's impression: ITS Impressions Head CT 04/12/25 10:21 IMPRESSION: NO ACUTE INTRACRANIAL ABNORMALITY. Impression dictated by: Hugo Centeno Jr., D.O. 04/12/2025 11:27 AM Dictation Location: [place] [address] Electronically authenticated by: [id number] Y Date: 04/12/2025 11:27 Head CTA 04/12/25 11:42 IMPRESSION: Negative for large vessel occlusion or hemodynamically stenosis. Wapr-iz-xmewsrhn narrowing involving both proximal wire frame lamp shade maker. 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 Evidence of heavy plaque with likely moderate severe narrowing involving the origin right vertebral artery. Left thyroid nodule 1.8 cm in size. This can be further characterize with thyroid ultrasound. Impression dictated by: Sancho Elmore M.D. 04/12/2025 1:14 PM Dictation Location: [place] [address] Electronically authenticated by: [id number] Y Date: 04/12/2025 13:14 Neck CTA 04/12/25 11:42 IMPRESSION: Negative for large vessel occlusion or hemodynamically stenosis. Tycv-ea-hdfkwvcn narrowing involving both proximal wire frame lamp shade maker. 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 Evidence of heavy plaque with likely moderate severe narrowing involving the origin right vertebral artery. Left thyroid nodule 1.8 cm in size. This can be further characterize with thyroid ultrasound. Impression dictated by: Sancho Elmore M.D. 04/12/2025 1:14 PM Dictation Location: [facility] Electronically authenticated by: [id number] Y Date: 04/12/2025 13:14 ECG Data Attestation: I personally reviewed and interpreted this ECG as follows: (EKG on my interpretation shows sinus rhythm with a rate of 81 and no acute change) Discharge Plan Discharge Chief Complaint: Headache Clinical Impression: Dizziness Patient Disposition: Home, Self-Care Time of Disposition Decision: 13:48 Condition: Good Mode of Transportation: Private Vehicle Prescriptions / Home Meds: No Action amlodipine 5 mg tablet 5 mg PO DAILY benazepril 20 mg tablet 20 mg PO DAILY gabapentin 300 mg capsule 300 mg PO BID Januvia 100 mg tablet 100 mg PO DAILY levothyroxine 50 mcg capsule 50 mcg PO DAILY ropinirole 0.25 mg tablet 0.25 mg PO DAILY glipizide 5 mg tablet 5 mg PO DAILY Patient Comments: two pills at night cholecalciferol (vitamin D3) 25 mcg (1,000 unit) capsule 25 mcg PO DAILY calcium 250 mg tablet 250 mg PO DAILY lubiprostone [Amitiza] 8 mcg capsule 8 mcg PO DAILY meloxicam 7.5 mg tablet 7.5 mg PO DAILY omeprazole 40 mg capsule,delayed release(DR/EC) 40 mg PO DAILY ropinirole 1 mg tablet 0.5 mg PO DAILY triamcinolone acetonide 0.1 % cream TOPICAL Print Language: Arabic Instructions: Dizziness (ED) Additional Instructions: Take a baby aspirin daily. Referrals: MARCOS SANTOS [Primary Care Provider, Internal Medicine] - 1 week
[2025-04-12 10:43] LABS: Hematocrit 43.1 % (36.0-48.0); Hemoglobin 14.4 g/dL (12.0-16.0); Immature Granulocytes Abs Auto 0.05 10^3/uL (0.00-0.03); Immature Granulocytes Pct Auto 0.5 % (0.0-0.5); Lymphocytes Absolute Auto 1.9 10^3/uL (1.2-3.8); Mean Corpuscular HGB Conc 33.4 g/dL (29.9-35.2); Mean Corpuscular Hemoglobin 29.7 pg (26.7-34.0); Mean Corpuscular Volume 88.9 fL (81.0-99.0); Platelet Count 211 10^3/uL (150-450); Red Blood Count 4.85 10^6/uL (4.20-5.40); White Blood Count 10.0 10^3/uL (4.0-11.0)
[2025-04-12 10:51] LABS: Anion Gap 14.6; Blood Urea Nitrogen 16.0 mg/dL (7.0-18.0); Calcium 8.9 mg/dL (8.5-10.1); Carbon Dioxide 25.5 mmol/L (21.0-32.0); Chloride 101 mmol/L (98-107); Estimated GFR (African America >60 (>=60 mL/min/1.73m^2); Estimated GFR (Non-African Ame >60 (>=60 mL/min/1.73m^2); Glucose 313 mg/dL (74-106); Potassium 4.1 mmol/L (3.5-5.1); Sodium 137 mmol/L (136-145)
--- NOTE | 2025-04-12 11:42 | CT_ITS ---
The [address] [address] Patient Name: JAMES WEAVER MRN: [id number] date: 1935 Sex: F Assigned Patient Location: ER Current Patient Location: .MAIN Accession/Order Number: [id number] Exam Date: 04/12/2025 13:00 Report Date: 04/12/2025 13:14 At the request of: SARAH DOMÍNGUEZ MD Procedure: CT angio neck CT angiogram head and neck CLINICAL HISTORY: [place] pop in neck, vertigo COMPARISON: CT head 04/12/2025 TECHNIQUE: CT angiogram head and neck performed with contrast. Coronal and sagittal reformats were generated. Evaluation degree of ICA narrowing was performed utilizing NASCET criteria.. MIP MPR images were generated. 3-D reconstructions of the neck vessels performed. This CT exam was performed using one or more following dose reduction techniques: Automated exposure control, adjustment of the mA and/or kV according to patient size, or use of iterative reconstruction technique. FINDINGS: Moderate plaque involving the nonaneurysmal aorta. Three-vessel configuration of the aorta. Left thyroid nodule, 1.8 cm. This can be further evaluated with thyroid ultrasound clinically feasible. Mild beaded appearance ICAs mid to distally can't be seen with FMD. Moderate plaque both bifurcations/proximal ICAs. No hemodynamic stenosis or occlusion identified. Moderate plaque ostium right vertebral artery. Left vertebral artery ostium is patent. Otherwise both vertebral arteries are patent throughout the course. Intracranially, intradural vertebral arteries are patent. Picas are patent. Basilar artery is patent. Posterior cerebral arteries are patent with mild to moderate narrowing left P2 segments minimal narrowing right P1 P2 junction. Otherwise cadastral surveyor are grossly patent. Intracranial ICAs are patent with mild to moderate plaque. Mild to moderate narrowing identified. ACAs are patent. MCAs are patent. No saccular aneurysm identified. Multilevel degenerative changes of the cervical spine. CT/CT angio neck IMPRESSION: Negative for large vessel occlusion or hemodynamically stenosis. Tttl-jr-mckowivr narrowing involving both proximal cadastral surveyor. 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 Evidence of heavy plaque with likely moderate severe narrowing involving the origin right vertebral artery. Left thyroid nodule 1.8 cm in size. This can be further characterize with thyroid ultrasound. Impression dictated by: Sancho Elmore M.D. 04/12/2025 1:14 PM Dictation Location: [place] [address] Electronically authenticated by: [id number] Y Date: 04/12/2025 13:14
--- NOTE | 2025-04-12 11:42 | CT_ITS ---
The [address] [address] Patient Name: JAMES WEAVER MRN: [id number] date: 1935 Sex: F Assigned Patient Location: ER Current Patient Location: .MAIN Accession/Order Number: [id number] Exam Date: 04/12/2025 13:00 Report Date: 04/12/2025 13:14 At the request of: SARAH DOMÍNGUEZ MD Procedure: CT angio neck CT angiogram head and neck CLINICAL HISTORY: [place] pop in neck, vertigo COMPARISON: CT head 04/12/2025 TECHNIQUE: CT angiogram head and neck performed with contrast. Coronal and sagittal reformats were generated. Evaluation degree of ICA narrowing was performed utilizing NASCET criteria.. MIP MPR images were generated. 3-D reconstructions of the neck vessels performed. This CT exam was performed using one or more following dose reduction techniques: Automated exposure control, adjustment of the mA and/or kV according to patient size, or use of iterative reconstruction technique. FINDINGS: Moderate plaque involving the nonaneurysmal aorta. Three-vessel configuration of the aorta. Left thyroid nodule, 1.8 cm. This can be further evaluated with thyroid ultrasound clinically feasible. Mild beaded appearance ICAs mid to distally can't be seen with FMD. Moderate plaque both bifurcations/proximal ICAs. No hemodynamic stenosis or occlusion identified. Moderate plaque ostium right vertebral artery. Left vertebral artery ostium is patent. Otherwise both vertebral arteries are patent throughout the course. Intracranially, intradural vertebral arteries are patent. Picas are patent. Basilar artery is patent. Posterior cerebral arteries are patent with mild to moderate narrowing left P2 segments minimal narrowing right P1 P2 junction. Otherwise chaser apprentice are grossly patent. Intracranial ICAs are patent with mild to moderate plaque. Mild to moderate narrowing identified. ACAs are patent. MCAs are patent. No saccular aneurysm identified. Multilevel degenerative changes of the cervical spine. CT/CT angio head IMPRESSION: Negative for large vessel occlusion or hemodynamically stenosis. Etrs-fi-wptmqsul narrowing involving both proximal chaser apprentice. 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 Evidence of heavy plaque with likely moderate severe narrowing involving the origin right vertebral artery. Left thyroid nodule 1.8 cm in size. This can be further characterize with thyroid ultrasound. Impression dictated by: Sancho Elmore M.D. 04/12/2025 1:14 PM Dictation Location: [place] [address] Electronically authenticated by: [id number] Y Date: 04/12/2025 13:14
== END 2025-04-12 14:00 | disposition home or self-care (01) ==
PROVIDERS: Emergency Provider Emergency Medicine; PCP Internal Medicine
DX: R42 Dizziness and giddiness (principal); R51.9 Headache, unspecified
CPT/HCPCS: 36415; 70450; 70496; 70498; 80048; 84484; 85025; 93005; 99285; Q9967

== ENCOUNTER 2025-05-01 13:00 | Outpatient (OUT) | payer MEDICARE, OTHER, SELFPAY ==
--- OUTSIDE RECORDS SUMMARY | 2025-04-18 11:00 | XMS_ITS | Encounter Summary ---
Author Organization [facility] Address [address] [place] [address] Care Team Providers Care Sales Development Coordinator Name Role Phone Conrado Ambriz MD Primary Care Provider [phone] Conrado Ambriz MD Unavailable [phone] Merna Lr LPN Unavailable Encounter Details Date Type Department Care Team (Late st Contact Info) Description 04/18/2025 11:00 AM EDT Office Visit [facility] [address] [facility] 110 [place] [id number] Emely Perez, GLUTEN SETTLING TENDER 112 [facility] 110 [place], [place] [id number] Environmental and seasonal allergies (Primary Dx); Impacted cerumen, right ear; Thyroid nodule ; Ingrowing toenail; Balance problem Social History Tobacco Use Types Packs/Day Years Used Date Smoking Tobacco: Never Smokeless Tobacco: Never Tobacco Cessation:Counseling Given: Yes Alcohol Use Standard Drinks/Week Comments Never 0 (1 standard drink = 0.6 oz pur e alcohol) caffeine: Yes, coffee tea B1300 Health Literacy Answer Date Recor ded How often do you need to hav e someone help you when you read instructions, pamphlets, or other written material from your doctor or pharmacy? Sometimes 03/26/2024 Humiliation, Afraid, Rape, and Kick questionnair e Answer Date Recorded Within the last year, have y ou been afraid of your partner or ex-partner? No 04/21/2023 Within the last year, have y ou been humiliated or emotionally abused in other ways by your partner or ex-partner? No Within the last year, have y ou been kicked, hit, slapped, or otherwise physically hurt by your partner or ex-partner? No 04/21/2023 Within the last year, have y ou been raped or forced to have any kind of sexual activity by your partner or ex-partner? No 04/21/2023 Social Connection and Isolat ion Panel [NHANES] Answer Date Recorded In a typical week, how many times do you talk on the phone with family, friends, or neighbors? More than three times a week 04/21/2023 How often do you get togethe r with friends or relatives? More than three times a week 04/21/2023 How often do you attend chur or episcopal services? 1 to 4 times per year 04/21/2023 Do you belong to any clubs o r organizations such as christianity groups, unions, fraternal or athletic groups, or school groups? No 04/21/2023 How often do you attend meet ings of the clubs or organizations you belong to? Never 04/21/2023 Are you , , di vorced, , never , or living with a partner? 04/21/2023 AUDIT-C Answer Date Recorded Q1: How often do you have a drink containing alcohol? Never 04/21/2023 Q2: How many drinks containi ng alcohol do you have on a typical day when you are drinking? Patient does not drink Q3: How often do you have si x or more drinks on one occasion? Never 04/21/2023 Overall Financial Resource Strain (CARDIA) Answe r Date Recorded How hard is it for you to pa y for the very basics like food, housing, medical care, and heating? Not hard at all 04/21/2023 PHQ-2 Answer Date Recorded Patient Health Questionnaire-2 Score 0 04/18/2025 [facility] - Occupational Stress Questionnaire Answer Date Recorded Do you feel stress - tense, restless, nervous, or anxious, or unable to sleep at night because your mind is troubled all the time - these days? Not at all 04/21/2023 Exercise Vital Sign Answer Date Recorde d On average, how many days pe r week do you engage in moderate to strenuous exercise (like a brisk walk)? 0 days 04/21/2023 On average, how many minutes do you engage in exercise at this level? 0 min 04/21/2023 Hunger Vital Sign Answer Date Recorded Within the past 12 months, y ou worried that your food would run out before you got the money to buy more. Never true 04/21/20 23 Within the past 12 months, t he food you bought just didn't last and you didn't have money to get more. Never true 04/21/2023 PRAPARE - Transportation Answer Date Re corded In the past 12 months, has l ack of transportation kept you from medical appointments or from getting medications? No 03/30 In the past 12 months, has l ack of transportation kept you from meetings, work, or from getting things needed for daily living? No 04/21/2023 Housing Stability Vital Sign Answer Duncan e Recorded In the last 12 months, was t here a time when you were not able to pay the mortgage or rent on time? No 04/21/2023 In the last 12 months, how many places have you lived? 1 04/21/2023 In the last 12 months, was t here a time when you did not have a steady place to sleep or slept in a skilled nursing (including now)? No 04/21/2023 Comments Unknown Sex and Gender Information Value Date Recorded Sex Assigned at Female 01/19/2023 11:47 AM EDT Legal Sex Female 6:44 PM EDT Gender Identity Female 01/19/2023 11:47 AM EDT Sexual Orientation Not on file documented as of this encounter Last Filed Vital Signs Vital Sign Reading Time Taken Comments Blood Pressure 138/62 04/18/2025 11:21 AM EDT Pulse 90 04/18/2025 11:21 AM EDT Temperature - - Respiratory Rate 16 04/18/2025 11:21 AM EDT Oxygen Saturation 95% 04/18/2025 11:21 AM EDT Inhaled Oxygen Concentration - - Weight 64.4 kg (142 lb) 04/18/2025 11:21 AM EDT Height 162.6 cm (5' 4 ) 04/18/2025 11:21 AM EDT Body Mass Index 24.37 04/18/2025 11:21 AM EDT documented in this encounter Functional Status * Over the past 2 weeks, how often have you been bothered by any of the following problems? Question Answer Date of Assessment Author Little interest or pleasure in doing things Not at all 04/18/2025 11:12 AM EDT TIANA TORRES Feeling down, depressed, or hopeless Not at all 03/30 11:12 AM EDT TIANA TORRES Patient Health Questionnaire-2 Score 0 03/30 11:12 AM EDT TIANA TORRES documented as of this encounter Plan of Treatment Upcoming Encounters Date Type Department Care Team (Late st Contact Info) Description 05/09/2025 10:00 AM EDT Office Visit [facility] [place] [facility] [address] [place] [address] [place] [address] Conrado Ambriz MD [address] [place] [address] [place] [address] 07/03/2025 10:45 AM EST Procedure Visit [facility] [address] [place] [address] [place] [address] Prem Lebrno DPM [address] [place] [address] [place] [address] Scheduled Orders Name Type Priority Associated Diagnoses Orde r Schedule US thyroid Imaging Routine Thyroid nodule Expected: 04/18/2025 (Approximate), Expires: 04/18/2026 documented as of this encounter Visit Diagnoses Diagnosis Environmental and seasonal allergies- Primary Impacted cerumen, right ear Thyroid nodule Nontoxic uninodular goiter Ingrowing toenail Ingrowing nail Balance problem Abnormality of gait documented in this encounter Additional Health Concerns Assessment Noted Time PHQ-9 Depression Total Score: 0 07/02/20 24 1:00 PM EST documented as of this encounter Care Teams Sales Development Coordinator Relationship Specialty Start Date End Date Conrado Ambriz MD [address] [place] [address] [place] [address] PCP - General Internal Medicine 01/19/23 Conrado Ambriz MD [address] [facility] 110 [place] [address] PCP - ACO Reach 10/28/23 Merna Lr LPN [address] [address] 11/16/24 documented as of this encounter
--- OUTSIDE RECORDS SUMMARY | 2025-04-19 06:13 | XMS_ITS | Continuity of Care Document ---
Author Organization [facility] Address [address] [place] [address] Phone Care Team Providers Care Frame Bender Name Role Phone Conrado Ambriz II Primary Care Provider [phone] Nayan Dominguez APRN Attending Provider Care Teams Patient Care Team Team Status: Active Member Role Status Dates Conrado Ambriz II MD Primary Care Provider Active Patient Care Team Team Status: Inactive Member Role Status Dates Conrado Ambriz II MD Primary Care Provider Active Start: April 19, 2025 End: April 19, 2025 Nayan Dominguez APRN Attending Provider Active Start: April 19, 2025 End: April 19, 2025 Chief Complaint and Reason for Visit Chief Complaint Admit Date 8 week follow up-constipation/gerd Augus t 2024 9:32am Allergies, Adverse Reactions, Alerts Allergen Type Severity Reaction Last Updated Verified Status adhesive Allergy Unknown Rash January 08, 2025 3:01pm Yes Active ciprofloxacin Allergy Unknown Unknown Reaction December 272024 3:01pm Yes Active hylan G-F 20 Allergy Unknown Swelling, edema December 3:01pm Yes Active moxifloxacin Allergy Unknown Hives January 08 3:01pm Yes Active simvastatin Allergy Unknown Diarrhea/Vomiti ng, stomach upset January 08, 2025 3:01pm Yes Active temazepam Allergy Unknown rash, sore mouth December 3:01pm Yes Active bandaid Allergy Unknown Rash December 13 11:06am No Active Social History Smoking Status Status Start Date End Date Date of Observa tion Never smoked tobacco (finding) May 23, 2024 8:50am Observation Status Observation Response Date of Response Legal Sex Female (finding) Sex Assigned At Female [birth year] Family History Relationship Condition Age at Onset Recorded Date/T sher father Heart problem Unknown Unknown Heart disease Unknown mother Unknown History of stroke Unknown Problems Active Problems Medical Problem Onset Date Status Comments Change in bowel habits Unknown Active Diarrhea Unknown Active Incontinence Unknown Active Change in stool caliber Unknown Active Chronic GERD Unknown Active Rectal bleeding Unknown Active Irritable bowel syndrome with constipation Unknown Active Irritable bowel syndrome with constipation Unknown Active Inactive/Resolved Problems Medical Problem Onset Date Status Comments History of rectal bleeding Unknown Resolved P roblem List clean-up per request of Phys. EHR Cmte Medications Medication Status Dose Units Route Directions Qty Days St art Date Stop Date End Date Instructions Adherence Lubiproston e (Amitiza) 24 mcg capsule Discont inued 24 MCG PO Twice daily 180 90 Februa ry 2024 1:00am Mar 2024 10:10 am Glipizide 5 mg tablet Active 10 MG PO Daily 2023 12:00a m Complies with drug therapy Glyburide 5 mg tablet Discont inued 10 MG PO Daily 2021 1:00am mber 2023 8:59a m Vitamin E 100 unit Capsule Discont inued 1 CAP PO Daily 2021 1:00am 2023 10:10 am Amlodipine 5 mg tablet Active 5 MG PO Daily 2021 1:00am Complies with drug therapy Acetaminoph en (Tylenol 8 Hour) 650 mg Tablet Extended Release Discont inued 1300 MG PO Twice daily 2021 1:00am Mar 2023 10:11 am Calcium Carbonate (Calcium 600) 600 mg calcium (1,500 mg) Tablet Discont inued 600 MG PO Daily 2021 1:00am Mar 2023 10:11 am Ropinirole 0.25 mg tablet Discont inued 0.5 MG PO Daily at bedtime 2021 1:00am Mar 2023 10:10 am Levothyroxi ne 50 mcg tablet Active 50 MCG PO Daily 2021 1:00am Complies with drug therapy Gabapentin 300 mg capsule Active 300 MG PO Twice daily 2021 1:00am Complies with drug therapy Vitamin B Complex Tablet Active 1 TAB PO Daily 2021 1:00am Complies with drug therapy Benazepril 20 mg tablet Active 20 MG PO Daily 2021 1:00am Complies with drug therapy Magnesium 200 mg Tablet Discont inued 400 MG PO Daily 2021 1:00am 2023 10:11 am Glucosamine -Chondroiti n (Osteo Bi-Flex) 250-200 mg Tablet Discont inued 1 TAB PO Daily 2021 1:00am 2023 10:11 am Cinnamon Bark (Cinnamon) 500 mg Capsule Discont inued 500 MG PO Daily 2021 1:00am 2023 10:11 am Cholecalcif gema (Vitamin D3) (Vitamin D3) 25 mcg (1,000 unit) Tablet Discont inued 25 MCG PO Daily 2021 1:00am 2023 10:11 am Vitamins A,C,E-Zinc- Copper (Preservisi on Areds) 14,320-226- 200 unit-mg-uni t Capsule Discont inued 2 CAP PO Daily 2021 1:00am 2023 10:10 am Melatonin 10 mg Tablet Discont inued 10 MG PO Daily at bedtime 2021 1:00am 2023 10:11 am Psyllium Husk 0.4 gram Capsule Discont inued 0.4 GM PO Daily 2021 1:00am 2023 10:11 am Vit C-Zn Gluc-Herbal No.325 (Elderberry Zinc Vit C) 90-15 mg Lozenge Discont inued 2 LOZENG E PO Daily 2021 1:00am Aug2023 10:10 am Sitagliptin Phosphate (Januvia) 100 mg tablet Active 100 MG PO Daily April 16, 2024 12:00a m Complies with drug therapy Meloxicam 7.5 mg tablet Active 7.5 MG PO Daily April 16, 2024 12:00a m Complies with drug therapy Ropinirole 1 mg tablet Active 1 MG PO Daily at bedtime April 16, 2024 12:00a m Complies with drug therapy Triamcinolo ne Acetonide (Nasacort) 55 mcg aerosol,spr ay Discont inued 1 SPRAY INTRAN ELHAM Daily April 16, 2024 12:00a m [facility] 2023 8:53a m FreeTextSi spray in each nostril Nasally Once a day; Note: Source Status: Taking; Provider: Oralia Babcock ( ) Cyanocobala min (Vitamin B-12) 100 mcg tablet Discont inued 100 MCG PO Daily April 16, 2024 12:00a m [facility] 2023 8:51a m [id number] Sul-Nacl-Elder l-Asb-C (Plenvu) 140-9-5.2 gram powder in packet, sequential Discont inued 140 ML PO .COMPLEX 1 1 April 16, 2024 12:00a m Octob er 2023 11:13 am First dose at 4pm the day before colonoscopy, Second dose at 11pm the night before the colonoscopy Lubiproston e (Amitiza) 8 mcg capsule Discont inued 8 MCG PO Twice daily 180 90 Octobe r 2023 12:00a m Novem melissa 2023 2:35p m Lubiproston e (Amitiza) 8 mcg capsule Discont inued 8 MCG PO Twice daily 180 90 Novemb er 2023 2:34pm Novem melissa 2023 2:36p m Lubiproston e (Amitiza) 8 mcg capsule Discont inued 8 MCG PO Twice daily 180 90 Novemb er 2023 2:35pm Febru asiya 2024 11:39 am Omeprazole 40 mg capsule,del ayed release(DR/ EC) Active 40 MG PO Februa 2024 1:00am Complies with drug therapy Aspirin (Adult Low Dose Aspirin) 81 mg tablet,sudarshan yed release (DR/EC) Active 81 MG PO Daily April 19, 2025 12:00a m Complies with drug therapy Linaclotide (Linzess) 72 mcg capsule Active 72 MCG PO Daily 90 90 April 19, 2025 12:00a m Complies with drug therapy Immunizations Immunization Event Date Not Given Reason Dose Number Putter In Lot Number Vaccine Information Statement (VIS) Detail Administration Location COVID-19 mRNA, Comirnaty (Pfizer) September 20, 2020 COVID-19 mRNA, Comirnaty (Pfizer) October 11, 2020 COVID-19 mRNA, Comirnaty (Pfizer) July 08, 2021 Vital Signs Vital Reading Result Reference Range Collection Date/Time Height 64 [in_i] April 19 9:39am Weight 64.86 kg April 19 9:39am BMI (Body Mass Index) 24.5 kg/m2 April 19, 2025 9:39am Advance Directives Advance Directive Response Recorded Date/ Time Advance Directives No September 03, 2021 12:14pm Insurance Providers Guarantor Timoteo Soliz Address [address] [place] [phone] Contact Info. Home Phone: Payer Policy Id Subscriber's Name Subscriber Id Effectiv e Date Expiration Date [facility] [id number] Timoteo Soliz [id number] Medicare [id number] Timoteo Soliz [id number] Encounters Encounter Location(s) Arrival/Admit Date Discharge/Depart Date Provider(s) Departed Physician/Prov ider Office Visit -[facility] April 19, 2025 9:32am April 19, 2025 10:12am Timoteo Mathews SENIOR BOILER OPERATOR
--- OUTSIDE RECORDS SUMMARY | 2025-04-25 09:00 | XMS_ITS | Encounter Summary ---
Author Organization [facility] Address [address] [place] [address] Care Team Providers Care Clicking Machine Operator Name Role Phone Conrado Ambriz MD Primary Care Provider [phone] Conrado Ambriz MD Unavailable [phone] Merna Lr LPN Unavailable Reason for Referral * Consultation (Routine) - Denied Specialty Diagnoses / Procedures Referred By Marcelina balderas Referred To Contact Podiatry Diagnoses Ingrowing toenail Procedures [place] OFFICE/[facility]PATIENT [facility] MDM 60 MINUTES Emely Perez, SPECIFICATIONS WRITER [address] [facility] 110 [place] [address] Phone: tel: fax: Katelyn Diamond, DPM [address] [facility] 100 [place] [address] Phone: tel: fax: Referral ID Status Reason Start Date Expiration Date V isits Requested Visits Authorized [id number] Denied Specialty Services Required 04/25/2025 10/22/2025 1 0 Encounter Details Date Type Department Care Team (Late st Contact Info) Description 04/25/2025 9:00 AM EDT Office Visit [facility] Rod[facility] [address] [facility] [address] [place] [address] Emely Perez, SPECIFICATIONS WRITER [address] [facility] 110 [place], [place] [id number] Environmental and seasonal allergies (Primary Dx); Ingrowing toenail Social History Tobacco Use Types Packs/Day Years Used Date Smoking Tobacco: Never Smokeless Tobacco: Never Alcohol Use Standard Drinks/Week Comments Never 0 [...] week 04/21/2023 How often do you attend [facility] or denominational services? 1 to 4 times per year 04/21/2023 Do you belong to any clubs o r organizations such as baptist groups, unions, fraternal or athletic groups, or [...] Date Recorded Patient Health Questionnaire-2 Score 0 04/25/2025 [facility] - Occupational Stress Questionnaire Answer Date Recorded [...] place to sleep or slept in a alf (including now)? No 04/21/2023 Comments Unknown Sex and Gender Information Value Date Recorded Sex Assigned at Female 01/19/2023 11:47 AM EDT Legal Sex Female 6:44 PM EDT Gender Identity Female 01/19/2023 11:47 AM EDT Sexual Orientation Not on file documented as of this encounter Last Filed Vital Signs Vital Sign Reading Time Taken Comments Blood Pressure 130/64 04/25/2025 8:56 AM EDT Pulse 77 04/25/2025 8:56 AM EDT Temperature - - Respiratory Rate 16 04/25/2025 8:56 AM EDT Oxygen Saturation 96% 04/25/2025 8:56 AM EDT Inhaled Oxygen Concentration - - Weight 63 kg (139 lb) 04/25/2025 8:56 AM EDT Height 162.6 cm (5' 4 ) 04/25/2025 8:56 AM EDT Body Mass Index 23.86 04/25/2025 8:56 AM EDT documented in this encounter Functional Status * Over the past 2 weeks, how often have you been bothered by any of the following problems? Question Answer Date of Assessment Author Little interest or pleasure in doing things Not at all 04/25/2025 8:51 AM EDT TIANA TORRES Feeling down, depressed, or hopeless Not at all 03/30 8:51 AM EDT TIANA TORRES Patient Health Questionnaire-2 Score 0 03/30 8:51 AM EDT TIANA TORRES documented as of this encounter Plan of Treatment Upcoming Encounters Date Type Department Care Team (Late st Contact Info) Description 05/09/2025 10:00 AM EDT Office Visit [facility] 112 [facility] 110 [place] [address] Conrado Ambriz MD 112 [facility] 110 [place] [address] 07/03/2025 10:45 AM EST Procedure Visit [facility] [address] [place] [address] [place] [address] Prem Lebron DPM [address] [place] [address] [place] [address] Scheduled Referrals Name Type Priority Associated Diagnoses Order Schedule Ambulatory referral to Podiatry Outpatient Referral Routine Ingrowing toenail Expected: 04/25/2025 (Approximate), Expires: 10/26/2025 documented as of this encounter Visit Diagnoses Diagnosis Environmental and seasonal allergies- Primary Ingrowing toenail Ingrowing nail documented in this encounter Additional Health Concerns Assessment Noted Time PHQ-9 Depression Total Score: 0 07/02/20 24 1:00 PM EST documented as of this encounter Care Teams Clicking Machine Operator Relationship Specialty Start Date End Date Conrado Ambriz MD [address] [facility] 110 [place] [address] PCP - General Internal Medicine 01/19/23 Conrado Ambriz MD [address] [facility] 110 [place] [address] PCP - ACO Reach 10/28/23 Merna Lr LPN [address] [facility] [address] [place] [address] 11/16/24 documented as of this encounter
--- NOTE | 2025-05-01 13:02 | US_ITS ---
The [address] [address] Patient Name: JAMES WEAVER MRN: [id number] date: 1935 Sex: F Assigned Patient Location: US Current Patient Location: Accession/Order Number: [id number] Exam Date: 05/01/2025 13:03 Report Date: 05/01/2025 13:59 At the request of: ADONAY DIOP NP Procedure: US thyroid Thyroid ultrasound Reason for exam: Thyroid nodule. Comparison: none Technique: Grayscale and color Doppler images of the thyroid gland were obtained. Findings: The right lobe measures 3.5 x 1.0 x 1.3 cm. Left lobe measures 3.8 x 2.0 x 1.9 cm. Isthmus measures 2.7 mm. The thyroid gland is heterogenous in echotexture without hyperemia on color Doppler imaging. A hypoechoic nodule is seen involving the mid aspect of the left lobe measuring 18 x 15 x 17 mm without microcalcifications. Additional smaller nodules are seen involving the right lobe largest measuring 4 x 3 x 2 mm involving the inferior pole. US/US thyroid Impression: Multinodular thyroid gland with a dominant nodule involving the mid aspect of the left lobe measuring 18 x 15 x 17 mm. FNA should BE considered. Impression dictated by: Hugo Centeno Jr., D.O. 05/01/2025 1:59 PM Dictation Location: [place] [address] Electronically authenticated by: [id number] Y Date: 05/01/2025 13:59
--- OUTSIDE RECORDS SUMMARY | 2025-05-01 13:08 | XMS_ITS | Encounter Summary ---
Author Organization [facility] Address [address] [place] [address] Care Team Providers Care Quilter Fixer Name Role Phone Conrado Ambriz MD Primary Care Provider [phone] Conrado Ambriz MD Unavailable [phone] Merna Lr LPN Unavailable Encounter Details Date Type Department Care Team (Latest Contact Info) Description 04/25/2025 Travel Social History Tobacco Use Types Packs/Day Years [...] How often do you attend chur or holiness services? 1 to 4 times per year 04/21/2023 Do you belong to any clubs o r organizations such as sabianist groups, unions, fraternal or athletic groups, or [...] 0 04/25/2025 [facility] - Occupational Stress [...] place to sleep or slept in a fci (including now)? No 04/21/2023 Comments Unknown Sex and Gender Information Value Date Recorded Sex Assigned at Female 01/19/2023 11:47 AM EDT Legal Sex Female 6:44 PM EDT Gender Identity Female 01/19/2023 11:47 AM EDT Sexual Orientation Not on file documented as of this encounter Functional Status * Over the [...] [facility] [place] [facility] [address] [facility] [address] [place] [address] Conrado Ambriz MD [address] [place] [address] [place] [address] 07/03/2025 10:45 AM EST Procedure Visit [facility] [address] [place] [address] [place] [address] Prem Lebron, DPTimoteo [address] [facility] 100 [place] [address] documented as of this encounter Visit Diagnoses Not on filedocumented in this encounter Additional Health Concerns Assessment Noted Time PHQ-9 Depression Total Score: 0 07/02/20 24 1:00 PM EST documented as of this encounter Care Teams Quilter Fixer Relationship Specialty Start Date End Date Conrado Ambriz MD [address] [facility] [address] [place] [address] PCP - General Internal Medicine 01/19/23 Conrado Ambriz MD [address] [facility] [address] [place] [address] PCP - ACO Reach 10/28/23 Merna Lr LPN [address] [facility] 110 [place] [address] 11/16/24 documented as of this encounter
--- OUTSIDE RECORDS SUMMARY | 2025-05-01 13:08 | XMS_ITS | Encounter Summary ---
Author Organization [facility] Address [address] [place] [address] Care Team Providers Care Unit Manager Name Role Phone Conrado Ambriz MD Primary Care Provider Conrado Ambriz MD Unavailable [phone] Kristel Rain RN Unavailable [phone] Merna Lr LPN Unavailable Encounter Details Date Type Department Care Team (Late Contact Info) Description 02/03/2023 Abstract [facility] [place] [facility] [place] [address] [facility] 110 [place] [id number] Conrado Ambriz MD [address] [facility] 110 [place], [place] [id number] Social History Tobacco Use Types Packs/Day Years Used Date Smoking Tobacco: Never Smokeless Tobacco: Never Alcohol Use Standard Drinks/Week Comments Never 0 (1 standard drink = 0.6 oz pur e alcohol) caffeine: Yes, coffee Comments Unknown Sex and Gender Information Value Date Recorded Sex Assigned at Female 01/19/2023 11:47 AM EDT Legal Sex Female 6:44 PM EDT Gender Identity Female 01/19/2023 11:47 AM EDT Sexual Orientation Not on file documented as of this encounter Plan of Treatment Upcoming Encounters Date Type Department Care Team (Late Contact Info) Description 05/09/2025 10:00 AM EDT Office Visit [facility] [place] [facility] [place] [address] [facility] 110 [place] [address] Conrado Ambriz MD [address] [facility] 110 [place] [address] 07/03/2025 10:45 AM EST Procedure Visit [facility] [address] [facility] 100 [place] [id number] Prem Lebron, DPM [address] [facility] 100 [place] [address] documented as of this encounter Visit Diagnoses Not on filedocumented in this encounter Care Teams Unit Manager Relationship Specialty Start Date End Date Conrado Ambriz MD [address] [facility] 110 [place] [address] PCP - General Internal Medicine 01/19/23 Conrado Ambriz MD [address] [facility] 110 [place] [address] PCP - ACO Reach 10/28/23 Kristel Rain, RN [address] [place] [address] [facility] 10/05/24 11/16/24 Merna Lr LPN [address] [facility] 110 [place] [address] 11/16/24 documented as of this encounter
--- OUTSIDE RECORDS SUMMARY | 2025-05-01 13:08 | XMS_ITS | Encounter Summary ---
Author Organization [facility] Address [address] [place] [address] Care Team Providers Care Bulldogger Name Role Phone Conrado Ambriz MD Primary Care Provider [phone] Conrado Ambriz MD Unavailable [phone] Kristel Rain RN Unavailable [phone] Merna Lr LPN Unavailable Encounter Details Date Type Department Care Team (Late st Contact Info) Description 05/23/2024 [facility] 112 [facility] 110 [place] [address] Conrado Ambriz MD 112 [facility] 110 [place] [address] Social History Tobacco Use Types Packs/Day Years [...] How often do you attend chur or taoist services? 1 to 4 times per year 04/21/2023 Do you belong to any clubs o r organizations such as buddhist groups, unions, fraternal or athletic groups, or [...] and heating? Not hard at all 04/21/2023 [facility] [place] of Occupat ional Health - Occupational Stress [...] place to sleep or slept in a residential (including now)? No 04/21/2023 Comments Unknown Sex [...] 10:00 AM EDT Office Visit [facility] [place] [facility] [address] [facility] 110 [place] [address] Conrado Ambriz MD 112 [facility] 110 [place] [address] 07/03/2025 10:45 AM EST Procedure Visit [facility] [place] [facility] [address] [facility] 100 [place] [phone] Prem Lebron DPM [address] [facility] 100 [place] [address] documented as of this encounter Visit Diagnoses Not on filedocumented in this encounter Additional Health Concerns Assessment Noted Time PHQ-9 Depression Total Score: 0 06/23/20 23 10:00 AM EDT documented as of this encounter Care Teams Bulldogger Relationship Specialty Start Date End Date Conrado Ambriz MD [address] [facility] 110 [place] [address] PCP - General Internal Medicine 01/19/23 Conrado Ambriz MD [address] [facility] 110 [place] [address] PCP - ACO Reach 10/28/23 Kristel Rain, RN [address] [place] [address] [facility] 10/05/24 11/16/24 Merna Lr LPN [address] [facility] 110 [place] [address] 11/16/24 documented as of this encounter
--- OUTSIDE RECORDS SUMMARY | 2025-05-01 13:08 | XMS_ITS | Encounter Summary ---
Author Organization [facility] Address [address] [place] [address] Care Team Providers Care Isotope Technologist Name Role Phone Conrado Ambriz MD Primary Care Provider [phone] Conrado Ambriz MD Unavailable [phone] Kristel Rain RN Unavailable [phone] Merna Lr LPN Unavailable Encounter Details Date Type Department Care Team (Late st Contact Info) Description 04/27/2024 Orders Only [facility] [place] [facility] [address] [place] 110 [place] [address] Maryann Umaña LPN 112 [facility] [address] [place], [place] [id number] Age related osteoporosis, unspecified pathological fracture presence Social History Tobacco Use Types Packs/Day Years [...] How often do you attend chur or jainism services? 1 to 4 times per year 04/21/2023 Do you belong to any clubs o r organizations such as anglican groups, unions, fraternal or athletic groups, or [...] and heating? Not hard at all 04/21/2023 [facility] of Occupat ional Health - Occupational Stress [...] place to sleep or slept in a group home (including now)? No 04/21/2023 Comments Unknown Sex [...] Visit [facility] [place] [facility] [address] [facility] 110 [place] [address] Conrado Ambriz MD 112 [facility] 110 [place] [address] 07/03/2025 10:45 AM EST Procedure Visit [facility] [place] [facility] [address] [place] 100 [place] [address] Prem Lebron DPM [address] [place] 100 [place] [address] documented as of this encounter Visit Diagnoses Diagnosis Age related osteoporosis, unspecified pathological fracture presence documented in this encounter Additional Health Concerns Assessment Noted Time PHQ-9 Depression Total Score: 0 06/23/20 23 10:00 AM EDT documented as of this encounter Care Teams Isotope Technologist Relationship Specialty Start Date End Date Conrado Ambriz MD [address] [facility] 110 [place] [address] PCP - General Internal Medicine 01/19/23 Conrado Ambriz MD [address] [place] [facility] 110 [place] [address] PCP - ACO Reach 10/28/23 Kristel Rain, RN [address] [place], [place] [id number] [facility] 10/05/24 11/16/24 Merna Lr LPN [address] [place] [facility] 110 [place] [address] 11/16/24 documented as of this encounter
--- OUTSIDE RECORDS SUMMARY | 2025-05-01 13:08 | XMS_ITS | Encounter Summary ---
Author Organization [facility] Address [address] [place] [address] Care Team Providers Care Asphalt Distributor Operator Name Role Phone Conrado Ambriz MD Primary Care Provider [phone] Conrado Ambriz MD Unavailable [phone] Be Merna UGALDE Unavailable Reason for Visit * Reason Comments Med Refill Encounter Details Date Type Department Care Team (Late st Contact Info) Description 04/22/2025 Refill [facility] [place] [facility] [address] [facility] 110 [place] [address] Conrado Ambriz MD 112 [facility] 110 [place] [address] Type 2 diabetes mellitus with other neurologic complication, without long-term current use of insulin (HCC) Social History Tobacco Use Types Packs/Day Years [...] How often do you attend chur or anglican services? 1 to 4 times per year [...] Recorded Patient Health Questionnaire-2 Score 0 04/18/2025 [facility] [place] of Occupat ional Health - Occupational Stress [...] place to sleep or slept in a assisted (including now)? No 04/21/2023 Comments Unknown Sex [...] [facility] [place] [facility] [address] [facility] 110 [place] [address] Conrado Ambriz MD [address] [facility] 110 [place] [address] 07/03/2025 10:45 AM EST Procedure Visit [facility] [place] [facility] [address] [place] 100 [place] [address] Prem Lebron DPM [address] [place] 100 [place] [address] documented as of this encounter Visit Diagnoses Diagnosis Type 2 diabetes mellitus with other neurologic complication, without long-term current use of insulin (HCC) documented in this encounter Additional Health Concerns Assessment Noted Time PHQ-9 Depression Total Score: 0 07/02/20 24 1:00 PM EST documented as of this encounter Care Teams Asphalt Distributor Operator Relationship Specialty Start Date End Date Conrado Ambriz MD [address] [place] [facility] 110 [place] [address] PCP - General Internal Medicine 01/19/23 Conrado Ambriz MD [address] [facility] 110 [place] [address] PCP - ACO Reach 10/28/23 Merna Lr LPN [address] [facility] 110 [place] [address] 11/16/24 documented as of this encounter
--- OUTSIDE RECORDS SUMMARY | 2025-05-01 13:08 | XMS_ITS | Encounter Summary ---
Author Organization [facility] Address [address] [place] [address] Care Team Providers Care Act Tutor Name Role Phone Conrado Ambriz MD Primary Care Provider [phone] Conrado Ambriz MD Unavailable [phone] Merna Lr LPN Unavailable Encounter Details Date Type Department Care Team (Late st Contact Info) Description 04/25/2025 Bamboo flowsheet [facility] [place] [facility] [address] [facility] 110 [place] [phone] Emely Perez, TIRE ROOM SUPERVISOR [address] [facility] 110 [place], [place] [phone] Social History Tobacco Use Types Packs/Day Years [...] 04/21/2023 How often do you attend chur ch or buddhism services? 1 to 4 times per year 04/21/2023 Do you belong to any clubs o r organizations such as synagogue groups, unions, fraternal or athletic groups, or [...] Recorded Patient Health Questionnaire-2 Score 0 04/25/2025 [facility] of Occupat ional Health - Occupational Stress [...] place to sleep or slept in a penitentiary (including now)? No 04/21/2023 Comments Unknown Sex [...] AM EDT Office Visit [facility] [place] [facility] [address] [facility] 110 [place] [address] Conrado Ambriz MD [address] [facility] 110 [place] [address] 07/03/2025 10:45 AM EST Procedure Visit [facility] [place] [facility] [address] [place] [address] Prem Lebron DPM [address] [place] 100 [place] [address] documented as of this encounter Visit Diagnoses Not on filedocumented in this encounter Additional Health Concerns Assessment Noted Time PHQ-9 Depression Total Score: 0 07/02/20 24 1:00 PM EST documented as of this encounter Care Teams Act Tutor Relationship Specialty Start Date End Date Conrado Ambriz MD [address] [facility] 110 [place] [address] PCP - General Internal Medicine 01/19/23 Conrado Ambriz MD [address] [facility] 110 [place] [address] PCP - ACO Reach 10/28/23 Merna Lr LPN [address] [facility] 110 [place] [address] 11/16/24 documented as of this encounter
--- OUTSIDE RECORDS SUMMARY | 2025-05-01 13:08 | XMS_ITS | Encounter Summary ---
Author Organization [facility] Address [address] [place] [address] Care Team Providers Care Meatman Name Role Phone Conrado Ambriz MD Primary Care Provider [phone] Conrado Ambriz MD Unavailable [phone] Kristel Rain RN Unavailable [phone] Merna Lr LPN Unavailable Encounter Details Date Type Department Care Team (Late st Contact Info) Description 03/27/2024 [facility] 112 [facility] 110 [place] [address] Conrado Ambriz MD 112 [facility] 110 [place] [address] Social History Tobacco Use Types [...] How often do you attend chur or christianity services? 1 to 4 times per year [...] and heating? Not hard at all 04/21/2023 [facility] [place] of Occupat ional Health - Occupational Stress [...] [facility] [place] [facility] [address] [facility] 110 [place] [address] Conrado Ambriz MD 112 [facility] 110 [place] [address] 07/03/2025 10:45 AM EST Procedure Visit [facility] [address] [facility] 100 [place] [phone] Prem Lebron DPM [address] [facility] 100 [place] [address] documented as of this encounter Visit Diagnoses Not on filedocumented in this encounter Additional Health Concerns Assessment Noted Time PHQ-9 Depression Total Score: 0 06/23/20 23 10:00 AM EDT documented as of this encounter Care Teams Meatman Relationship Specialty Start Date End Date Conrado Ambriz MD [address] [facility] 110 [place] [address] PCP - General Internal Medicine 01/19/23 Conrado Ambriz MD [address] [facility] 110 [place] [address] PCP - ACO Reach 10/28/23 Kristel Rain, RN [address] [place] [address] [facility] 10/05/24 11/16/24 Merna Lr LPN [address] [facility] 110 [place] [address] 11/16/24 documented as of this encounter
--- OUTSIDE RECORDS SUMMARY | 2025-05-01 13:08 | XMS_ITS | Encounter Summary ---
Author Organization [facility] Address [address] [place] [address] Care Team Providers Care Operator Automated Process Name Role Phone Conrado Ambriz MD Primary Care Provider [phone] Conrado Ambriz MD Unavailable [phone] Kristel Rain RN Unavailable [phone] Merna Lr LPN Unavailable Encounter Details Date Type Department Care Team (Late st Contact Info) Description 06/20/2024 [facility] 112 [facility] 110 [place] [address] Conrado Ambriz MD 112 [facility] 110 [place] [address] Social History Tobacco Use Types [...] How often do you attend chur or sabianism services? 1 to 4 times per year 04/21/2023 Do you belong to any clubs o r organizations such as episcopalian groups, unions, fraternal or athletic groups, or [...] and heating? Not hard at all 04/21/2023 [facility] of Occupat ional Health - Occupational Stress [...] [facility] [place] [facility] [address] [facility] 110 [place] [address] Conrado Ambriz MD 112 [facility] 110 [place] [address] 07/03/2025 10:45 AM EST Procedure Visit [facility] [address] [facility] 100 [place] [phone] Prem Lebron DPM [address] [facility] 100 [place] [address] documented as of this encounter Visit Diagnoses Not on filedocumented in this encounter Additional Health Concerns Assessment Noted Time PHQ-9 Depression Total Score: 0 06/23/20 23 10:00 AM EDT documented as of this encounter Care Teams Operator Automated Process Relationship Specialty Start Date End Date Conrado Ambriz MD [address] [facility] 110 [place] [address] PCP - General Internal Medicine 01/19/23 Conrado Ambriz MD [address] [facility] 110 [place] [address] PCP - ACO Reach 10/28/23 Kristel Rain, RN [address] [place] [address] [facility] 10/05/24 11/16/24 Merna Lr LPN [address] [facility] 110 [place] [address] 11/16/24 documented as of this encounter
--- OUTSIDE RECORDS SUMMARY | 2025-05-01 13:08 | XMS_ITS | Encounter Summary ---
Author Organization [facility] Address [address] [place] [address] Care Team Providers Care Doubler Helper Name Role Phone Conrado Ambriz MD Primary Care Provider [phone] Conrado Ambriz MD Unavailable [phone] Kristel Rain RN Unavailable [phone] Merna Lr LPN Unavailable Encounter Details Date Type Department Care Team (Late st Contact Info) Description 01/18/2024 [facility] 112 [facility] 110 [place] [address] Conrado Ambriz MD 112 [facility] 110 [place] [address] Social History Tobacco Use Types Packs/Day Years Used Date Smoking Tobacco: Never Smokeless Tobacco: Never Alcohol Use Standard Drinks/Week Comments Never 0 (1 standard drink = 0.6 oz pur e alcohol) caffeine: Yes, coffee tea Humiliation, Afraid, Rape, and Kick questionnair e [...] How often do you attend chur or judaism services? 1 to 4 times per year 04/21/2023 Do you belong to any clubs o r organizations such as cheondoism groups, unions, fraternal or athletic groups, or [...] and heating? Not hard at all 04/21/2023 [facility] of Occupat ional Health - Occupational Stress [...] 10:00 AM EDT Office Visit [facility] [place] [facility] [address] [facility] 110 [place] [address] Conrado Ambriz MD [address] [place] [facility] 110 [place] [address] 07/03/2025 10:45 AM EST Procedure Visit [facility] [address] [facility] 100 [place] [address] Prem Lebron DPM [address] [facility] 100 [place] [address] documented as of this encounter Visit Diagnoses Not on filedocumented in this encounter Additional Health Concerns Assessment Noted Time PHQ-9 Depression Total Score: 0 06/23/20 10:00 AM EDT documented as of this encounter Care Teams Doubler Helper Relationship Specialty Start Date End Date Conrado Ambriz MD [address] [facility] 110 [place] [address] PCP - General Internal Medicine 01/19/23 Conrado Ambriz MD [address] [facility] 110 [place] [address] PCP - ACO Reach 10/28/23 Kristel Rain, RN [address] [place] [address] [facility] 10/05/24 11/16/24 Merna Lr LPN [address] [facility] 110 [place] [address] 11/16/24 documented as of this encounter
--- OUTSIDE RECORDS SUMMARY | 2025-05-01 13:08 | XMS_ITS | Encounter Summary ---
Author Organization [facility] Address [address] [place] [address] Care Team Providers Care Journeyman Pipe Fitter Name Role Phone Conrado Ambriz MD Primary Care Provider [phone] Conrado Ambriz MD Unavailable [phone] Kristel Rain RN Unavailable [phone] Merna Lr LPN Unavailable Encounter Details Date Type Department Care Team (Late st Contact Info) Description 04/16/2024 [facility] [address] [facility] 110 [place] [address] Conrado Ambriz MD 112 [facility] 110 [place] [address] Social History Tobacco Use Types [...] How often do you attend chur or adventist services? 1 to 4 times per year 04/21/2023 Do you belong to any clubs o r organizations such as jew groups, unions, fraternal or athletic groups, or [...] Not hard at all 04/21/2023 [facility] of Occupat ional Health - Occupational Stress [...] place to sleep or slept in a detention (including now)? No 04/21/2023 Comments Unknown Sex [...] [facility] [address] [facility] 110 [place] [address] Conrado Ambriz MD 112 [facility] 110 [place] [address] 07/03/2025 10:45 AM EST Procedure Visit [facility] [address] [facility] 100 [place] [phone] Prem Lebron DPM [address] [facility] 100 [place] [address] documented as of this encounter Visit Diagnoses Not on filedocumented in this encounter Additional Health Concerns Assessment Noted Time PHQ-9 Depression Total Score: 0 06/23/20 23 10:00 AM EDT documented as of this encounter Care Teams Journeyman Pipe Fitter Relationship Specialty Start Date End Date Conrado Ambriz MD [address] [facility] 110 [place] [address] PCP - General Internal Medicine 01/19/23 Conrado Ambriz MD [address] [facility] 110 [place] [address] PCP - ACO Reach 10/28/23 Kristel Rain, RN [address] [place] [address] [facility] 10/05/24 11/16/24 Merna Lr LPN [address] [facility] 110 [place] [address] 11/16/24 documented as of this encounter
--- OUTSIDE RECORDS SUMMARY | 2025-05-01 13:08 | XMS_ITS | Encounter Summary ---
Author Organization [facility] Address [address] [place] [address] Care Team Providers Care Director Enterprise Systems Name Role Phone Conrado Ambriz MD Primary Care Provider [phone] Conrado Ambriz MD Unavailable [phone] Kristel Rain RN Unavailable [phone] Merna Lr LPN Unavailable Encounter Details Date Type Department Care Team (Late st Contact Info) Description 01/03/2024 [facility] 112 [facility] 110 [place] [address] Conrado Ambriz MD 112 [facility] 110 [place] [address] Social History Tobacco Use Types [...] How often do you attend chur or baptist services? 1 to 4 times per year 04/21/2023 Do you belong to any clubs o r organizations such as confucianism groups, unions, fraternal or athletic groups, or [...] and heating? Not hard at all 04/21/2023 [facility] of Occupat ional Health - Occupational [...] place to sleep or slept in a custodial (including now)? No 04/21/2023 Comments Unknown Sex [...] Visit [facility] [place] [facility] [address] [facility] 110 [place] [address] Conrado Ambriz MD [address] [place] [facility] 110 [place] [address] 07/03/2025 10:45 AM EST Procedure Visit [facility] [address] [facility] 100 [place] [address] Prem Lebron DPM [address] [facility] 100 [place] [address] documented as of this encounter Visit Diagnoses Not on filedocumented in this encounter Additional Health Concerns Assessment Noted Time PHQ-9 Depression Total Score: 0 06/23/20 10:00 AM EDT documented as of this encounter Care Teams Director Enterprise Systems Relationship Specialty Start Date End Date Conrado Ambriz MD [address] [facility] 110 [place] [address] PCP - General Internal Medicine 01/19/23 Conrado Ambriz MD [address] [facility] 110 [place] [address] PCP - ACO Reach 10/28/23 Kristel Rain, RN [address] [place] [address] [facility] 10/05/24 11/16/24 Merna Lr LPN [address] [facility] 110 [place] [address] 11/16/24 documented as of this encounter
--- OUTSIDE RECORDS SUMMARY | 2025-05-01 13:08 | XMS_ITS | Encounter Summary ---
Author Organization [facility] Address [address] [place] [address] Care Team Providers Care Supervisor Whipped Topping Name Role Phone Conrado Ambriz MD Primary Care Provider [phone] Conrado Ambriz MD Unavailable [phone] Kristel Rain RN Unavailable [phone] Merna Lr LPN Unavailable Encounter Details Date Type Department Care Team (Late st Contact Info) Description 01/16/2023 Abstract [facility] [address] [place] [address] [place] [phone] Prem Lebron DPM [address] [facility] [place] [address] [place] [address] Social History Tobacco Use Types Packs/Day Years Used Date Smoking Tobacco: Never Smokeless Tobacco: Never Tobacco Cessation:Counseling Given: Not Answered Alcohol Use Standard Drinks/Week Comments Never 0 [...] Description 05/09/2025 10:00 AM EDT [facility] 112 [facility] 110 [place] [address] Conrado Ambriz MD [address] [facility] 110 [place] [address] 07/03/2025 10:45 AM EST Procedure Visit [facility] [address] [place] [address] [place] [phone] Prem Lebron, DPTimoteo [address] [place] [address] [place] [address] documented as of this encounter Visit Diagnoses Not on filedocumented in this encounter Care Teams Supervisor Whipped Topping Relationship Specialty Start Date End Date Conrado Ambriz MD [address] [facility] 110 [place] [address] PCP - General Internal Medicine 01/19/23 Conrado Ambriz MD [address] [facility] 110 [place] [address] PCP - ACO Reach 10/28/23 Kristel Rain, VIDA [address] [facility] [place] [address] [facility] 10/05/24 11/16/24 Merna Lr LPN [address] [facility] 110 [place] [address] 11/16/24 documented as of this encounter
--- OUTSIDE RECORDS SUMMARY | 2025-05-01 13:08 | XMS_ITS | Encounter Summary ---
Author Organization [facility] Address [address] [place] [address] Care Team Providers Care Denture Finisher Name Role Phone Conrado Ambriz MD Primary Care Provider [phone] Conrado Ambriz MD Unavailable [phone] Kristel Rain RN Unavailable [phone] Merna Lr LPN Unavailable Encounter Details Date Type Department Care Team (Late st Contact Info) Description 10/05/2023 [facility] 112 [facility] 110 [place] [address] Conrado Ambriz MD 112 [facility] 110 [place] [address] Social History Tobacco Use Types [...] How often do you attend chur or roman catholic services? 1 to 4 times per year 04/21/2023 Do you belong to any clubs o r organizations such as restorationism groups, unions, fraternal or athletic groups, or [...] and heating? Not hard at all 04/21/2023 [facility] of Occupat ional Health - Occupational [...] place to sleep or slept in a care home (including now)? No 04/21/2023 Comments Unknown [...] Visit [facility] [place] [facility] [address] [facility] 110 [place] [address] Conrado Ambriz MD 112 [facility] 110 [place] [address] 07/03/2025 10:45 AM EST Procedure Visit [facility] [address] [facility] 100 [place] [address] Prem Lebron DPM [address] [facility] 100 [place] [address] documented as of this encounter Visit Diagnoses Not on filedocumented in this encounter Additional Health Concerns Assessment Noted Time PHQ-9 Depression Total Score: 0 06/23/20 10:00 AM EDT documented as of this encounter Care Teams Denture Finisher Relationship Specialty Start Date End Date Conrado Ambriz MD [address] [facility] 110 [place] [address] PCP - General Internal Medicine 01/19/23 Conrado Ambriz MD [address] [facility] 110 [place] [address] PCP - ACO Reach 10/28/23 Kristel Rain, RN [address] [address] [facility] 10/05/24 11/16/24 Merna Lr LPN [address] [facility] 110 [place] [address] 11/16/24 documented as of this encounter
--- OUTSIDE RECORDS SUMMARY | 2025-05-01 13:08 | XMS_ITS | Encounter Summary ---
Author Organization [facility] Address [address] [place] [address] Care Team Providers Care Mold Stripper Name Role Phone Conrado Ambriz MD Primary Care Provider Conrado Ambriz MD Unavailable [phone] Kristel Rain RN Unavailable [phone] Merna Lr LPN Unavailable Encounter Details Date Type Department Care Team (Late st Contact Info) Description 05/23/2024 [facility] 112 [facility] 110 [place] [address] Conrado Ambriz MD 112 [facility] 110 [place] [address] Social History Tobacco Use Types [...] How often do you attend chur or zoroastrian services? 1 to 4 times per year 04/21/2023 Do you belong to any clubs o r organizations such as zoroastrian groups, unions, fraternal or athletic groups, or [...] and heating? Not hard at all 04/21/2023 [facility] of Occupat ional Health - Occupational Stress [...] place to sleep or slept in a intermediate (including now)? No 04/21/2023 Comments Unknown Sex [...] [facility] [place] [facility] [address] [facility] 110 [place] [address] Conrado Ambriz MD 112 [facility] 110 [place] [address] 07/03/2025 10:45 AM EST Procedure Visit [facility] [address] [facility] 100 [place] [phone] Prem Lebron DPM [address] [facility] 100 [place] [address] documented as of this encounter Visit Diagnoses Not on filedocumented in this encounter Additional Health Concerns Assessment Noted Time PHQ-9 Depression Total Score: 0 06/23/20 23 10:00 AM EDT documented as of this encounter Care Teams Mold Stripper Relationship Specialty Start Date End Date Conrado Ambriz MD [address] [facility] 110 [place] [address] PCP - General Internal Medicine 01/19/23 Conrado Ambriz MD [address] [facility] 110 [place] [address] PCP - ACO Reach 10/28/23 Kristel Rani, RN [address] [place] [address] Clinical [facility] Family [facility] 10/05/24 11/16/24 Merna Lr LPN [address] [facility] 110 [place] [address] 11/16/24 documented as of this encounter
--- OUTSIDE RECORDS SUMMARY | 2025-05-01 13:09 | XMS_ITS | Encounter Summary ---
Author Organization [facility] Address [address] [place] [address] Care Team Providers Care Fisheries Technical Officer Name Role Phone Conrado Ambriz MD Primary Care Provider [phone] Conrado Ambriz MD Unavailable [phone] Kristel Rain RN Unavailable [phone] Merna Lr LPN Unavailable Encounter Details Date Type Department Care Team (Late st Contact Info) Description 07/04/2023 Orders Only [facility] [address] [place] [address] [place] [address] Natalia Dorsey ARRT Social History Tobacco Use Types Packs/Day Years Used Date Smoking Tobacco: Never Smokeless Tobacco: Never Alcohol Use Standard Drinks/Week Comments Never 0 (1 standard drink = 0.6 oz pur e alcohol) caffeine: Yes, coffee Humiliation, Afraid, Rape, and Kick questionnair e [...] often do you attend chur ch or temple services? 1 to 4 times per year 04/21/2023 Do you belong to any clubs o r organizations such as samaritan groups, unions, fraternal or athletic groups, or [...] and heating? Not hard at all 04/21/2023 [facility] of Occupat ional Health - Occupational Stress [...] place to sleep or slept in a usp (including now)? No 04/21/2023 Comments Unknown Sex [...] AM EDT Office Visit [facility] [place] [facility] [address] [facility] 110 [place] [address] Conrado Ambriz MD [address] [facility] 110 [place] [address] 07/03/2025 10:45 AM EST Procedure Visit [facility] [address] [place] [address] [place] [address] Prem Lebron DPM [address] [place] 100 [place] [address] documented as of this encounter Visit Diagnoses Not on filedocumented in this encounter Additional Health Concerns Assessment Noted Time PHQ-9 Depression Total Score: 0 06/23/20 23 10:00 AM EDT documented as of this encounter Care Teams Fisheries Technical Officer Relationship Specialty Start Date End Date Conrado Ambriz MD [address] [facility] 110 [place] [address] PCP - General Internal Medicine 01/19/23 Conrado Ambriz MD [address] [facility] 110 [place] [address] PCP - ACO Reach 10/28/23 Kristel Rain, VIDA [address] [place] [address] Clinical Adv[facility] Family Medicine 10/05/24 11/16/24 Merna Lr LPN [address] [facility] 110 [place] [address] 11/16/24 documented as of this encounter
--- OUTSIDE RECORDS SUMMARY | 2025-05-01 13:09 | XMS_ITS | Encounter Summary ---
Author Organization [facility] Address [address] [place] [address] Care Team Providers Care Grain Combiner Name Role Phone Conrado Ambriz MD Primary Care Provider [phone] Conrado Ambriz MD Unavailable [phone] Kristel Rain RN Unavailable [phone] Merna Lr LPN Unavailable Encounter Details Date Type Department Care Team (Late st Contact Info) Description 07/24/2024 [facility] 112 [facility] 110 [place] [address] Conrado Ambriz MD 112 [facility] 110 [place] [address] Social History Tobacco Use Types [...] How often do you attend chur or catholic services? 1 to 4 times per year 04/21/2023 Do you belong to any clubs o r organizations such as taoism groups, unions, fraternal or athletic groups, or [...] Date Recorded Patient Health Questionnaire-2 Score 0 07/02/2024 [facility] of Occupat ional Health - Occupational Stress [...] Visit [facility] [place] [facility] [address] [facility] [address] [place] [address] Conrado Ambriz MD 112 [facility] [address] [place] [address] 07/03/2025 10:45 AM EST Procedure Visit [facility] [address] [place] [address] [place] [address] Prem Lebron DPM [address] [place] 100 [place] [address] documented as of this encounter Visit Diagnoses Not on filedocumented in this encounter Additional Health Concerns Assessment Noted Time PHQ-9 Depression Total Score: 0 07/02/20 24 1:00 PM EST documented as of this encounter Care Teams Grain Combiner Relationship Specialty Start Date End Date Conrado Ambriz MD [address] [facility] 110 [place] [address] PCP - General Internal Medicine 01/19/23 Conrado Ambrzi MD [address] [facility] 110 [place] [address] PCP - ACO Reach 10/28/23 Kristel Rain, RN [address] [place] [address] Clinical Advocate Family Medicine 10/05/24 11/16/24 Merna Lr LPN [address] [facility] 110 [place] [address] 11/16/24 documented as of this encounter
--- OUTSIDE RECORDS SUMMARY | 2025-05-01 13:09 | XMS_ITS | Encounter Summary ---
Author Organization [facility] Address [address] [place] [address] Care Team Providers Care Price Accuracy Supervisor Name Role Phone Conrado Ambriz MD Primary Care Provider Conrado Ambriz MD Unavailable [phone] Merna Lr LPN Unavailable Encounter Details Date Type Department Care Team (Late st Contact Info) Description 02/04/2025 Orders Only [facility] [place] [facility] [address] [facility] 110 [place] [address] Conrado Ambriz MD 112 [facility] 110 [place] [address] Social History Tobacco Use Types [...] often do you attend chur ch or anglican services? 1 to 4 times per year 04/21/2023 Do you belong to any clubs o r organizations such as moravian groups, unions, fraternal or athletic groups, or [...] Date Recorded Patient Health Questionnaire-2 Score 0 02/04/2025 [facility] of Occupat ional Health - [...] place to sleep or slept in a chcf (including now)? No 04/21/2023 Comments Unknown Sex [...] pleasure in doing things Not at all 02/04/2025 9:44 AM EDT TIANA TORRES Feeling down, depressed, or hopeless Not at all 04/2025 9:44 AM EDT TIANA TORRES Patient Health Questionnaire-2 Score 0 04/2025 9:44 AM EDT TIANA TORRES documented as of this encounter Plan of Treatment Upcoming Encounters Date Type Department Care Team (Late st Contact Info) Description 05/09/2025 10:00 AM EDT Office Visit [facility] [place] [facility] [address] [place] 110 [place] [address] Conrado Ambriz MD [address] [facility] 110 [place] [address] 07/03/2025 10:45 AM EST Procedure Visit [facility] [address] [place] [address] [place] [address] Prem Lebron DPM [address] [place] 100 [place] [address] documented as of this encounter Visit Diagnoses Not on filedocumented in this encounter Additional Health Concerns Assessment Noted Time PHQ-9 Depression Total Score: 0 07/02/20 24 1:00 PM EST documented as of this encounter Care Teams Price Accuracy Supervisor Relationship Specialty Start Date End Date Conrado Ambriz MD [address] [facility] 110 [place] [address] PCP - General Internal Medicine 01/19/23 Conrado Ambriz MD [address] [facility] 110 [place] [address] PCP - ACO Reach 10/28/23 Merna Lr LPN [address] [facility] 110 [place] [address] 11/16/24 documented as of this encounter
--- OUTSIDE RECORDS SUMMARY | 2025-05-01 13:09 | XMS_ITS | Encounter Summary ---
Author Organization [facility] Address [address] [place] [address] Care Team Providers Care Telecommunications Professional Name Role Phone Conrado Ambriz MD Primary Care Provider [phone] Conrado Ambriz MD Unavailable [phone] Kristel Rain RN Unavailable [phone] Merna Lr LPN Unavailable Encounter Details Date Type Department Care Team (Late st Contact Info) Description 06/29/2023 [facility] 112 [facility] 110 [place] [address] Conrado Ambriz MD 112 [facility] 110 [place] [address] Social History Tobacco Use Types [...] How often do you attend chur or jewish services? 1 to 4 times per year 04/21/2023 Do you belong to any clubs o r organizations such as nondenominational groups, unions, fraternal or athletic groups, or [...] and heating? Not hard at all 04/21/2023 [facility] of Occupat ional Health - Occupational Stress [...] place to sleep or slept in a mcc (including now)? No 04/21/2023 Comments Unknown Sex [...] Visit [facility] [place] Rod[facility] [address] [facility] 110 [place] [address] Conrado Ambriz MD 112 [facility] 110 [place] [address] 07/03/2025 10:45 AM EST Procedure Visit [facility] [address] [facility] 100 [place] [address] Prem Lebron DPM [address] [facility] 100 [place] [address] documented as of this encounter Visit Diagnoses Not on filedocumented in this encounter Additional Health Concerns Assessment Noted Time PHQ-9 Depression Total Score: 0 10/26/20 23 10:00 AM EDT documented as of this encounter Care Teams Telecommunications Professional Relationship Specialty Start Date End Date Conrado Ambriz MD [address] [facility] 110 [place] [address] PCP - General Internal Medicine 01/19/23 Conrado Ambriz MD [address] [facility] 110 [place] [address] PCP - ACO Reach 10/28/23 Kristel Rain, RN [address] [place] [address] Clinical [facility] Family [facility] 10/05/24 11/16/24 Merna Lr LPN [address] [facility] 110 [place] [address] 11/16/24 documented as of this encounter
--- OUTSIDE RECORDS SUMMARY | 2025-05-01 13:09 | XMS_ITS | Encounter Summary ---
Author Organization [facility] Address [address] [place] [address] Care Team Providers Care Track Grinder Name Role Phone Conrado Ambriz MD Primary Care Provider [phone] Conrado Ambriz MD Unavailable [phone] Kristel Rain RN Unavailable [phone] Merna Lr LPN Unavailable Encounter Details Date Type Department Care Team (Late st Contact Info) Description 06/28/2023 [facility] 112 [facility] 110 [place] [address] Conrado Ambriz MD 112 [facility] 110 [place] [address] Social History Tobacco Use Types [...] How often do you attend chur or pentecostalism services? 1 to 4 times per year [...] and heating? Not hard at all 04/21/2023 [facility] of Occupat ional Health - Occupational [...] place to sleep or slept in a prison (including now)? No 04/21/2023 Comments Unknown Sex [...] Visit [facility] [place] Rod[facility] [address] [facility] 110 [place] [address] Conrado Ambriz MD 112 [facility] 110 [place] [address] 07/03/2025 10:45 AM EST Procedure Visit [facility] [address] [facility] 100 [place] [address] Prem Lebron DPM [address] [facility] [address] [place] [address] documented as of this encounter Visit Diagnoses Not on filedocumented in this encounter Additional Health Concerns Assessment Noted Time PHQ-9 Depression Total Score: 0 10/26/20 23 10:00 AM EDT documented as of this encounter Care Teams Track Grinder Relationship Specialty Start Date End Date Conrado Ambriz MD [address] [facility] 110 [place] [address] PCP - General Internal Medicine 01/19/23 Conrado Ambriz MD [address] [facility] 110 [place] [address] PCP - ACO Reach 10/28/23 Kristel Rain, RN [address] [place] [address] [facility] 10/05/24 11/16/24 Merna Lr LPN [address] [facility] 110 [place] [address] 11/16/24 documented as of this encounter
--- OUTSIDE RECORDS SUMMARY | 2025-05-01 13:09 | XMS_ITS | Encounter Summary ---
Author Organization [facility] Address [address] [place] [address] Care Team Providers Care General Laborer Name Role Phone Conrado Ambriz MD Primary Care Provider [phone] Conrado Ambriz MD Unavailable [phone] Kristel Rain RN Unavailable [phone] Merna Lr LPN Unavailable Encounter Details Date Type Department Care Team (Late st Contact Info) Description 06/28/2023 Clinisync Result Encounter [facility] External Department Unsolicited Analy [place], [place] 112 [facility] 110 [place] [address] Social History Tobacco Use Types Packs/Day Years [...] often do you attend chur ch or jain services? 1 to 4 times per year 04/21/2023 Do you belong to any clubs o r organizations such as sikh groups, unions, fraternal or athletic groups, or [...] and heating? Not hard at all 04/21/2023 [facility] - [...] Visit [facility] [address] [facility] 110 [place] [address] Conrado Ambriz MD 112 [facility] 110 [place] [address] 07/03/2025 10:45 AM EST Procedure Visit [facility] [address] [place] [address] [place] [address] Prem Lebron DPM [address] [place] [address] [place] [address] documented as of this encounter Procedures Procedure Name Priority Date/Time Associated Diagnosis Comments XR DEXA AXIAL SKELETON 06/28/2023 9:00 PM EDT documented in this encounter Results * XR DEXA AXIAL SKELETON (06/28/2023 9:00 PM EDT) Anatomical Region Laterality Modality Other 06/28/2023 9:00 PM EDT Narrative 06/28/2023 9:00 PM EDT [address] [address] XRay Report Signed Patient: Elizabeth Ramirez MR#: [id number] : 1935 Acct:[id number] Age/Sex: 87 / F ADM Date: 06/28/23 Loc: RAD Attending Dr: ANALY HAMMOND Ordering Physician: ANALY HAMMOND Date of Service: 06/28/23 Procedure(s): XR DEXA axial skeleton Accession Number(s): [id number] cc: CONRADO AMBRIZ ; ANALY HAMMOND [place] [address] Patient Name: ELIZABETH RAMIREZ MRN: [id number] date: 1935 Sex: F Assigned Patient Location: [facility] Current Patient Location: [facility] Accession/Order Number: [id number] Exam Date: 06/28/2023 10:45 Report Date: 06/28/2023 21:00 At the request of: ANALY HAMMOND Procedure: XR DEXA axial skeleton EXAMINATION: XR DEXA axial skeleton, 06/28/2023 10:45 AM EDT HISTORY: Age Related Osteoporosis M81.0 COMPARISON: 2020, 2018, 2017 TECHNIQUE: Dual-energy X-ray absorptiometry (DEXA) bone density study performed for the axial skeleton. HISTORY: Age Related Osteoporosis M81.0 FINDINGS: Bone mineral density left forearm radius measures 0.488 g/sq cm. T score -3.2. WHO classification: Osteoporosis. Total bilateral femurs mean density of 0.788 g/sq cm. T score -1.7. WHO classification: Osteopenia XR/XR DEXA axial skeleton IMPRESSION: Osteoporosis. High fracture risk Electronically authenticated by: DANTE LAMAS Date: 06/28/2023 21:00 Dictated By: Dante Lamas M.D. Signed By: 06/28/232101 DD/ 99 TD/TT: Civil Transportation Engineer: Procedure Note Radiology, Radiologist, MD - 06/28/2023 [facility] [place] [id number] XRay Report Signed Patient: Elizabeth Ramirez MMR#: [id number] : 1935cct:[id number] Age/Sex: 87 / FADM Date: 06/28/23 Loc: RAD Attending Dr: ANALY HAMMOND Ordering Physician: ANALY HAMMOND Date of Service: 06/28/23 Procedure(s): XR DEXA axial skeleton Accession Number(s): [id number] cc: CONRADO AMBRIZ ; ANALY HAMMOND [place] [id number] Patient Name: ELIZABETH RAMIREZ MRN: [id number] date: 1935 Sex: F Assigned Patient Location: [facility] Current Patient Location: [facility] Accession/Order Number: [id number] Exam Date: 06/28/2023 10:45 Report Date: 06/28/2023 21:00 At the request of: ANALY HAMMOND Procedure: XR DEXA axial skeleton EXAMINATION: XR DEXA axial skeleton, 06/28/2023 10:45 AM EDT HISTORY: Age Related Osteoporosis M81.0 COMPARISON: 2020, 2018, 2016 TECHNIQUE: Dual-energy X-ray absorptiometry (DEXA) bone density study performed for the axial skeleton. HISTORY: Age Related Osteoporosis M81.0 FINDINGS: Bone mineral density left forearm radius measures 0.488 g/sq cm. T score-3.2. WHO classification: Osteoporosis. Total bilateral femurs mean density of 0.788 g/sq cm. T score -1.7. WHO classification: Osteopenia XR/XR DEXA axial skeleton IMPRESSION: Osteoporosis. High fracture risk Electronically authenticated by: DANTE LAMAS Date: 06/28/2023 21:00 Dictated By: Dante Lamas M.D. Signed By:06/28/232101 DD/ 99 TD/TT: Civil Transportation Engineer: Analy [place] [facility] Final Result documented in this encounter Visit Diagnoses Not on filedocumented in this encounter Additional Health Concerns Assessment Noted Time PHQ-9 Depression Total Score: 0 06/23/20 23 10:00 AM EDT documented as of this encounter Care Teams General Laborer Relationship Specialty Start Date End Date Conrado Ambriz MD [address] [facility] 110 [place] [address] PCP - General Internal Medicine 01/19/23 Conrado Ambriz MD [address] [facility] 110 [place] [address] PCP - ACO Reach 10/28/23 Kristel Rain, VIDA [address] [facility] [place] [address] Clinical Advocate Family Medicine 10/05/24 11/16/24 Merna Lr LPN [address] [facility] 110 [place] [address] 11/16/24 documented as of this encounter
--- OUTSIDE RECORDS SUMMARY | 2025-05-01 13:09 | XMS_ITS | Encounter Summary ---
Author Organization [facility] Address [address] [place] [address] Care Team Providers Care Wool Classer Name Role Phone Conrado Ambriz MD Primary Care Provider [phone] Conrado Ambriz MD Unavailable [phone] Kristel Rain RN Unavailable [phone] Merna Lr LPN Unavailable Encounter Details Date Type Department Care Team (Late st Contact Info) Description 11/14/2024 [facility] 112 [facility] 110 [place] [address] Conrado Ambriz MD 112 [facility] 110 [place] [address] Social History Tobacco Use Types [...] How often do you attend chur or mormon services? 1 to 4 times per year 04/21/2023 Do you belong to any clubs o r organizations such as gnosticism groups, unions, fraternal or athletic groups, or [...] Recorded Patient Health Questionnaire-2 Score 0 07/02/2024 [facility] [place] of Occupat ional Health - Occupational Stress [...] place to sleep or slept in a retirement (including now)? No 04/21/2023 Comments Unknown Sex [...] Visit [facility] [place] [facility] [address] [facility] 110 [place] [address] Conrado Ambriz MD 112 [facility] 110 [place] [address] 07/03/2025 10:45 AM EST Procedure Visit [facility] [address] [place] [address] [place] [address] Prem Lebron DPM [address] [place] [address] [place] [address] documented as of this encounter Visit Diagnoses Not on filedocumented in this encounter Additional Health Concerns Assessment Noted Time PHQ-9 Depression Total Score: 0 07/02/20 24 1:00 PM EST documented as of this encounter Care Teams Wool Classer Relationship Specialty Start Date End Date Conrado Ambriz MD [address] [facility] 110 [place] [address] PCP - General Internal Medicine 01/19/23 Conrado Ambriz MD [address] [facility] 110 [place] [address] PCP - ACO Reach 10/28/23 Kristel Rain, RN [address] [facility] [place] [address] Clinical Advocate Family Medicine 10/05/24 11/16/24 Merna Lr LPN [address] [facility] 110 [place] [address] 11/16/24 documented as of this encounter
--- OUTSIDE RECORDS SUMMARY | 2025-05-01 13:09 | XMS_ITS | Encounter Summary ---
Author Organization [facility] Address [address] [place] [address] Care Team Providers Care Roll Clamp Operator Name Role Phone Conrado Ambriz MD Primary Care Provider [phone] Conrado Ambriz MD Unavailable [phone] Kristel Rain RN Unavailable [phone] Merna Lr LPN Unavailable Encounter Details Date Type Department Care Team (Late st Contact Info) Description 07/07/2023 [facility] 112 [facility] 110 [place] [address] Conrado Ambriz MD 112 [facility] 110 [place] [address] Social History Tobacco Use Types [...] How often do you attend chur or yazidi services? 1 to 4 times per year 04/21/2023 Do you belong to any clubs o r organizations such as zoroastrianism groups, unions, fraternal or athletic groups, or [...] and heating? Not hard at all 04/21/2023 [facility] of Occupat ional Health - Occupational Stress [...] place to sleep or slept in a snf (including now)? No 04/21/2023 Comments Unknown Sex [...] Visit [facility] [place] Rodríguez [address] [facility] 110 [place] [address] Conrado Ambriz MD 112 [facility] 110 [place] [address] 07/03/2025 10:45 AM EST Procedure Visit [facility] [address] [facility] 100 [place] [address] Prem Lebron DPM [address] [facility] 100 [place] [address] documented as of this encounter Visit Diagnoses Not on filedocumented in this encounter Additional Health Concerns Assessment Noted Time PHQ-9 Depression Total Score: 0 10/26/20 23 10:00 AM EDT documented as of this encounter Care Teams Roll Clamp Operator Relationship Specialty Start Date End Date Conrado Ambriz MD [address] [facility] [address] [place] [address] PCP - General Internal Medicine 01/19/23 Conrado Ambriz MD [address] [facility] 110 [place] [address] PCP - ACO Reach 10/28/23 Kristel Rain, RN [address] [place] [address] Clinical Advocate Family Medicine 10/05/24 11/16/24 Merna Lr LPN [address] [facility] 110 [place] [address] 11/16/24 documented as of this encounter
--- OUTSIDE RECORDS SUMMARY | 2025-05-01 13:09 | XMS_ITS | Clinical Summary ---
Author Organization [facility] Address [address] [place] [address] Care Team Providers Care Inserting Operator Name Role Phone Conrado Ambriz MD Primary Care Provider [phone] Conrado Ambriz MD Unavailable [phone] Merna Lr LPN Unavailable Allergies Active Allergy Reactions Criticality Noted Date Comments Ciprofloxacin Rash Low 01/19/2023 Ciprofloxacin Hcl Rash Low 02/02/2023 Hylan G-F 20 Swelling 01/16/2008 Other Reaction(s): Edema Metformin Diarrhea 01/19/2023 Moxifloxacin Hives 01/16/2008 Simvastatin GI intolerance,Nausea And Vomiting 01/16/2008 Temazepam Rash Low 01/19/2023 Other Reaction(s): rash, sore mouth Wound Dressing Adhesive Rash Low 01/19/2023 Medications b complex vitamins capsule Take 1 capsule by mouth in the morning. Active Calcium 250 MG capsule Take 1 tablet by mouth Daily Active cholecalciferol (Vitamin D-3) 25 MCG (1000 UT) capsule Take 1,000 Units by mouth Daily Active lubiprostone (Amitiza) 8 MCG capsule Take 8 mcg by mouth in the morning. Take with meals. Active omeprazole (PriLOSEC) [address] capsuleIndication s:Gastroesophagea l reflux disease, 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 esophagitis present Take 1 capsule (40 mg) by mouth in the morning. Take before meals. Do not crush or chew.. 90 capsule 3 08/31/19 25 2025 Active triamcinolone (Kenalog) 0.1 % creamIndications: Psoriasis Apply topically 2 (two) times a day 454 g 1 11/30/19 25 Active benazepril (Lotensin) 20 MG tabletIndications :Benign essential hypertension TAKE 1 TABLET DAILY 90 tablet 3 12/20/19 25 Active levothyroxine (Synthroid, Levoxyl) 50 MCG tabletIndications :Acquired hypothyroidism TAKE 1 TABLET DAILY 90 tablet 3 12/20/19 25 Active meloxicam (Mobic) 7.5 MG tabletIndications :Degenerative disc disease, lumbar TAKE 1 TABLET DAILY 90 tablet 3 12/20/19 25 Active rOPINIRole (Requip) 1 MG tabletIndications :Restless legs syndrome (RLS) TAKE ONE-HALF (1/2) TABLET DAILY 45 tablet 3 01/29/20 25 Active gabapentin (Neurontin) 300 MG capsuleIndication s:Type 2 diabetes mellitus with peripheral neuropathy (HCC) Take 1 capsule (300 mg) by mouth in the morning and 1 capsule (300 mg) before bedtime. 200 capsule 3 01/29/20 25 Active amLODIPine (Norvasc) 5 MG tabletIndications :Benign essential hypertension Take 1 tablet (5 mg) by mouth Daily 100 tablet 3 01/29/20 25 Active glipiZIDE (Glucotrol) 5 MG tabletIndications :Type 2 diabetes mellitus with peripheral neuropathy (HCC) Take 1 tablet (5 mg) by mouth Daily with meals AND 2 tablets (10 mg) in the evening. Take with meals. 300 tablet 3 03/19/20 25 Active aspirin 81 MG EC tablet Take 81 mg by mouth Daily Active azelastine (Astelin) 0.1 % nasal sprayIndications: Environmental and seasonal allergies Administer 2 sprays into each nostril in the morning and 2 sprays before bedtime. Use in each nostril as directed. 30 mL 2 04/18/20 25 2025 Active Januvia 100 MG tabletIndications :Type 2 diabetes mellitus with other neurologic complication, without long-term current use of insulin (HCC) TAKE ONE TABLET BY MOUTH EVERY DAY 90 tablet 1 04/22/20 25 Active loratadine (Claritin) 10 MG tabletIndications :Environmental and seasonal allergies Take 1 tablet (10 mg) by mouth Daily 30 tablet 2 04/25/20 25 2024 Active Januvia 100 MG tabletIndications :Type 2 diabetes mellitus with other neurologic complication, without long-term current use of insulin (HCC) TAKE ONE TABLET BY MOUTH EVERY DAY 90 tablet 2 07/13/20 24 2024 Discontinued cefdinir (Omnicef) 300 MG capsuleIndication s:Acute non-recurrent sinusitis, unspecified location Take 1 capsule (300 mg) by mouth in the morning and 1 capsule (300 mg) before bedtime. Do all this for 7 days. 14 capsule 03/28/20 25 2024 carbamide peroxide (Debrox) 6.5 % otic solutionIndicatio ns:Impacted cerumen, right ear Administer 5 drops into affected ear(s) in the morning and 5 drops before bedtime. Do all this for 5 days. 15 mL 04/18/20 25 2024 Active Problems Problem Noted Date Diagnosed Date Primary osteoarthritis of right shoulder 025 Exudative age-related macula r degeneration, bilateral, with inactive choroidal neovascularization 07/02/2024 Vitreous hemorrhage, bilateral 07/02/2024 Acquired hypothyroidism 02/02/2023 Altered bowel function 02/02/2023 Atopic dermatitis 02/02/2023 Benign essential hypertension 02/02/2023 Bilateral sacroiliitis 02/02/2023 Chronic constipation 02/02/2023 Irritable bowel syndrome with constipation 02/02 Chronic insomnia 02/02/2023 Degenerative disc disease, lumbar 02/02/2023 Degenerative lumbar spinal stenosis 02/02/2023 Diverticulosis of sigmoid colon 02/02/2023 Entrapment of left ulnar nerve 02/02/2023 Ganglion cyst 02/02/2023 GERD (gastroesophageal reflux disease) History of partial colectomy 02/02/2023 Hyperglycemia due to type 2 diabetes mellitus Hyperplastic polyp of large intestine 02/02/2023 Macular degeneration of both eyes 02/02/2023 Mixed hyperlipidemia 02/02/2023 Mixed stress and urge urinary incontinence 02/02 Osteoarthritis of knee 02/02/2023 Other allergic rhinitis 02/02/2023 Peripheral neuralgia 02/02/2023 Pseudopolyposis of colon 02/02/2023 Psoriasis, unspecified 02/02/2023 Restless legs syndrome (RLS) 02/02/2023 Cyst of pancreas 02/02/2023 Renal cyst 02/02/2023 Right nephrolithiasis 02/02/2023 Sensorineural hearing loss (SNHL), bilateral 02/2023 Sinus arrhythmia 02/02/2023 Osteoporosis 02/02/2023 Spondylolisthesis 02/02/2023 Tinnitus 02/02/2023 Dermatophytosis of nail 01/19/2023 Diabetes mellitus with neurological manifestatio ns 01/19/2023 Nail deformity 01/19/2023 Pre-ulcerative calluses 01/19/2023 Localized edema 01/19/2023 Neuropathic pain 01/19/2023 Hammertoe of left foot 01/19/2023 Hammertoe of right foot 01/19/2023 Impaired ambulation 01/19/2023 Risk for falls 01/19/2023 Balance problem 01/19/2023 Fat pad atrophy of foot 01/19/2023 Hallux valgus of right foot 01/19/2023 Hallux valgus of left foot 01/19/2023 Hallux limitus of right foot 01/19/2023 Hallux limitus of left foot 01/19/2023 Acquired pes planovalgus of right foot Acquired pes planovalgus of left foot 01/19/2023 Asymptomatic varicose veins 01/19/2023 Incontinence of feces 01/16/2008 Resolved Problems Problem Noted Date Diagnosed Date Resolved Date Change in stool caliber 07/02/2024 11/0 11/2023 Back pain 02/02/2023 06/23/2023 Back problem 02/02/2023 06/23/2023 Diabetes mellitus 02/02/2023 06/23/2023 Type 2 diabetes mellitus wit h other diabetic neurological complication 02/02/2023 06/23/2023 Type 2 diabetes mellitus wit h peripheral neuropathy 02/02/2023 06/23/2023 Diverticular disease 02/02/2023 023 Diverticulosis of colon 02/02/202305/30 Hearing loss of right ear 02/02/2023 Hematochezia 02/02/2023 07/02/2024 Hypertension 02/02/2023 06/23/2023 Primary generalized hypertro phic osteoarthrosis 02/02/2023 06/23/2023 Rectal hemorrhage 02/02/2023 06/23/2023 Tear of rotator cuff 02/02/2023 024 Acquired hammer toe of right foot 02/02/2023 06/23/2023 Bunion of great toe of right foot 02/02/2023 06/23/2023 Valgus deformity of great toe 02/02/2023 06/23/2023 Other hammer toe(s) (acquired), left foot 02/02/2023 06/23/2023 Ingrown toenail of both feet 01/19/2023 07/02/2024 Urgency of urination 04/19/2008 023 Encounters Date Type Department Care Team Description 04/25/2025 9:00 AM EDT [facility] [address] [facility] [address] [place] [phone] Emely Perez, JORGE Environmental and seasonal allergies (Primary Dx); Ingrowing toenail 04/25/2025 Telephone [facility] [address] [facility] [address] [place] [address] Emely Perez, [employer] 04/25/2025 Bamboo flowsheet [facility] [address] [facility] [address] [place] [address] Emely Perez, [employer] 04/25/2025 Travel 04/22/2025 Refill [facility] [address] [facility] [address] [place] [address] Conrado Ambriz MD Type 2 diabetes mellitus with other neurologic complication, without long-term current use of insulin ([facility]) 04/22/2025 Abstract [facility] [address] [facility] [address] [place] [address] Conrado Ambriz MD 04/18/2025 11:00 AM EDT Office Visit [facility] [address] [place] [address] [place] [address] Emely Perez, [employer] Environmental and seasonal allergies (Primary Dx); Impacted cerumen, right ear; Thyroid nodule ; Ingrowing toenail; Balance problem 04/18/2025 Bamboo flowsheet [facility] [address] [place] [address] [place] [address] Emely Perez, JORGE 04/18/2025 Travel 04/15/2025 Patient Outreach [place] [id number] [place] [address] Merna Lr, [facility] 04/15/2025 Patient Outreach [place] [address] [place] [address] LrMerna, [facility] 04/15/2025 Abstract [place] [address] [place] [address] LrMerna, [facility] 04/05/2025 1:00 PM EDT Procedure Visit [facility] [address] [place] [address] [place] [address] Prem Lebron, DPM Onychomycosis; Nail deformity; Type 2 diabetes mellitus with other neurologic complication, 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 longitudinal float operator insulin use (HCC); Localized edema 04/05/2025 Bamboo flowsheet [facility] [address] [place] [address] [place] [address] Prem Lebron DPM 04/05/2025 Travel 04/02/2025 Patient Outreach [place] [id number] [place] [address] Merna Lr, [employer]TER [employer] 03/27/2025 Telephone [facility] [address] [place] [address] [place] [phone] Maryann Umaña LPN Sinusitis 03/19/2025 Refill [facility] [address] [place] [address] [place] [address] Conrado Ambriz MD Type 2 diabetes mellitus with peripheral neuropathy (HCC) 02/14/2025 Telephone [facility] [address] [place] [address] [place] [address] Conrado Ambriz MD 02/04/2025 9:45 AM EDT Office Visit [facility] [address] [place] [address] [place] [address] Conrado Ambriz MD Type 2 diabetes mellitus with other neurologic complication, without long-term current use of insulin (HCC) (Primary Dx); Acute non-recurrent frontal sinusitis; Mixed hyperlipidemia ; Acquired hypothyroidism ; Type 2 diabetes mellitus with peripheral neuropathy (HCC) 02/04/2025 [facility] [address] [place] [address] [place] [phone] Conrado Ambriz MD 02/04/2025 Bamboo flowsheet [facility] [address] [place] [address] [place] [address] Conrado Ambriz MD 02/04/2025 Travel from Last 3 Months Immunizations Immunization Administration Dates Next Due Influenza, High Dose Seasona l, Preservative Free 06/12/2019,06/19/2018,05/30/2017 Influenza, High-dose Seasona l, Quadrivalent, Preservative Free 06/11/2024,06/17/2023,06/10/2022 Influenza, Seasonal, Quadriv alent, Adjuvanted 06/18/2021,05/16/2020 Influenza, injectable, quadr ivalent, preservative free 06/01/2016 Influenza, seasonal, intrade rmal, preservative free 05/08/2015,06/03/2014 Moderna Bivalent Booster Vaccination 07/13/2022 Pfizer Purple Cap SARS-CoV-2 Vaccination 09/20/2020 Pneumococcal Conjugate PCV 13 10/20/2016 Pneumococcal Polysaccharide PPSV23 07/13,07/30/2015,12/27/2014,12/27,07/13/2002 Zoster, Recombinant 06/19/2018,01/09/2018 Family History Medical History Relation Name Comments Heart disease Father Stroke Mother Leukemia Sister Melanoma Neg Hx Relation Name Status Comments Brother 1 brother Daughter 5 daughters Father Mother Other Spouse Sister 1 sister Son 5 sons Social History Tobacco Use Types Packs/Day Years [...] How often do you attend chur or oriental orthodox services? 1 to 4 times per year 04/21/2023 Do you belong to any clubs o r organizations such as orthodoxy groups, unions, fraternal or athletic groups, or [...] Recorded Patient Health Questionnaire-2 Score 0 04/25/2025 [facility] - Occupational Stress Questionnaire Answer Date Recorded [...] AM EDT Sexual Orientation Not on file Last Filed Vital Signs Vital Sign Reading Time Taken Comments Blood Pressure 130/64 04/25/2025 8:56 AM EDT Pulse 77 04/25/2025 8:56 AM EDT Temperature 36.1 C (97 F) 08/01/2024 9:27 AM EST Respiratory Rate 16 04/25/2025 8:56 AM EDT Oxygen Saturation 96% 04/25/2025 8:56 AM EDT Inhaled Oxygen Concentration - - Weight 63 kg (139 lb) 04/25/2025 8:56 AM EDT Height 162.6 cm (5' 4 ) 04/25/2025 8:56 AM EDT Body Mass Index 23.86 04/25/2025 8:56 AM EDT Plan of Treatment Upcoming Encounters Date Type Department Care Team (Late st Contact Info) Description 05/09/2025 10:00 AM EDT Office Visit [facility] [address] [facility] [address] [place] [address] Conrado Ambriz MD [address] [facility] [address] [place] [address] 07/03/2025 10:45 AM EST Procedure Visit [facility] [address] [facility] [address] [place] [phone] Prem Lebron DPM [address] [facility] [address] [place] [address] Health Maintenance Due Date Last Done Comments Diabetes: Retinopathy Screening 08/12/2023 08/12/2021, 02/01/2019, 08/09/2018, Additional history exists Diabetes: Urine Protein Screening 06/23/2024 06/23/2023, 11/21/2018, 04/10/2018 Influenza Vaccine (#1) 2025 , 06/17/2023, 06/10/2022, Additional history exists Diabetes: Hemoglobin A1C 05/07/2025 025, 11/29/2024, 06/11/2024, Additional history exists Medicare Annual Wellness (AWV) 07/02/2025 1 09/01/2023, 06/23/2023, 03/02/2022 Pneumococcal Vaccine: 65+ Years Completed 07/13/2018, 10/20/2016, 07/30/2015, Additional history exists Procedures Procedure Name Priority Date/Time Associated Diagnosis Comments POCT URINALYSIS DIPSTICK Routine 02/04/2025 10:59 AM EDT Type 2 diabetes mellitus with other neurologic complication, without long-term current use of insulin (HCC) POCT GLYCOSYLATED HEMOGLOBIN (HGB A1C) Routine 02/04/2025 10:59 AM EDT Type 2 diabetes mellitus with other neurologic complication, without long-term current use of insulin (HCC) TSH Routine 02/04/2025 10:50 AM EDT Acquired hypothyroidism COMPREHENSIVE METABOLIC PANEL Routine 02/04/2025 10:50 AM EDT Type 2 diabetes mellitus with other neurologic complication, without long-term current use of insulin (HCC) Acute non-recurrent frontal sinusitis CBC (INCLUDES DIFF/PLT) Routine 02/04/2025 10:50 AM EDT Type 2 diabetes mellitus with other neurologic complication, without long-term current use of insulin (HCC) Acute non-recurrent frontal sinusitis MICROALBUMIN / CREATININE URINE RATIO Routine 06/23/2023 1:43 PM EDT Type 2 diabetes mellitus with other neurologic complication, without long-term current use of insulin ([facility]) COLOR FUNDUS PHOTOGRAPHY - OU - BOTH EYES Routine 08/12/2021 12:00 PM EST from Last 3 Months or Most Recently Relevant to Health Maintenance Results * (ABNORMAL) POCT glycosylated hemoglobin (Hb A1C) docked device (02/04/2025 10:59 AM EDT) Hemoglobin A1C 7.9 Blood Venous blood specimen / Unknown 02/04/2025 10:59 AM EDT us Conrado Ambriz MD POINT OF CARE TEST ENTER/EDIT ORDERABLES Final Result * POCT Urinalysis dipstick (02/04/2025 10:59 AM EDT) Color, UA Yellow Clarity, UA Clear Glucose, UA Negative Negative - 2000(110) ++++ mg/dL Bilirubin, UA Negative Negative - 4(70) +++ mg/dL Ketones, UA Negative Negative - 160(16) ++++ mg/dL Spec Grav, UA 1.000 1 - 1.03 Blood, UA Negative Negative - 50 Tony/mcL pH, UA 5.0 5 - 9 Protein, UA Negative Negative - 2000(20) ++++ mg/dL Urobilinogen, UA 0.2 0.2 - 12 mg/dL Leukocytes, UA Negative Negative - 500+++ Kristopher/mcL Nitrite, UA Negative Negative - Positive Urine 02/04/2025 10:5 9 AM EDT Conrado Ambriz MD POINT OF CARE TEST ENTER/EDIT ORDERABLES Final Result * (ABNORMAL) CBC and differential (02/04/2025 10:50 AM EDT) WHITE BLOOD CELL COUNT 10.8 3.8 - 10.8 Thousand/u L [facility] RED BLOOD CELL COUNT 5.53(H) 3.80 - 5.10 Million/uL [facility] HEMOGLOBIN 16.2(H) 11.7 - 15.5 g/dL [facility] HEMATOCRIT 50.8(H) 35.0 - 45.0 % [facility] MCV 91.9 80.0 - 100.0 fL [facility] MCH 29.3 27.0 - 33.0 pg [facility] MCHC 31.9(L) 32.0 - 36.0 g/dL [facility] Comment: For adults, a slight decrease in the calculated MCHC value (in the range of 30 to 32 g/dL) is most likely not clinically significant; however, it should be interpreted with caution in correlation with other red cell parameters and the patient's clinical condition. RDW 15.6(H) 11.0 - 15.0 % [facility] PLATELET COUNT 222 140 - 400 Thousand/u L [facility] MPV 10.6 7.5 - 12.5 fL [facility] ABSOLUTE NEUTROPHILS 7,538 1,500 - 7,800 cells/uL [facility] ABSOLUTE LYMPHOCYTES 2,441 850 - 3,900 cells/uL [facility] ABSOLUTE MONOCYTES 680 200 - 950 cells/uL [facility] ABSOLUTE EOSINOPHILS 76 15 - 500 cells/uL [facility] ABSOLUTE BASOPHILS 65 0 - 200 cells/uL [facility] NEUTROPHILS 69.8 % [facility] LYMPHOCYTES 22.6 % [facility] MONOCYTES 6.3 % [facility] EOSINOPHILS 0.7 % [facility] BASOPHILS 0.6 % [facility] Blood Venous blood specimen / Unknown 02/04/2025 10:50 AM EDT 02/04/2025 10:50 AM EDT Narrative [facility] - 02/05/2025 8:31 AM EDT FASTING:NO FASTING: NO Resulting Agency Comment Performing Organization Information Site ID: QPT Name: [facility] Address: [address] [place] [address], [address] [place] [phone] Director: Ji Fung MD Conrado Ambriz MD LAB BLOOD ORDERABLES Final Res ult Performing Organization Address [facility] de Phone Number [facility] * TSH (02/04/2025 10:50 AM EDT) TSH 1.18 0.40 - 4.50 mIU/L [facility] Blood Venous blood specimen / Unknown 02/04/2025 10:50 AM EDT 02/04/2025 10:50 AM EDT Narrative [facility] - 02/05/2025 8:31 AM EDT FASTING:NO FASTING: NO Resulting Agency Comment Performing Organization Information Site ID: QPT Name: [facility] Address: [address] [place] [address], [address] [place] [phone] Director: Ji Fung MD Conrado Ambriz MD LAB BLOOD ORDERABLES Final Res ult Performing Organization Address [facility] de Phone Number [facility] * (ABNORMAL) Comprehensive metabolic panel (02/04/2025 10:50 AM EDT) Glucose 175(H) 65 - 99 mg/dL [facility] Comment: Fasting reference interval For someone without known diabetes, a glucose value >125 mg/dL indicates that they may have diabetes and this should be confirmed with a follow-up test. BUN 15 7 - 25 mg/dL [facility] Creatinine 0.71 0.60 - 0.95 mg/dL [facility] EGFR 82 > OR = 60 mL/min/1. 73m2 [facility] BUN/CREATININE RATIO SEE NOTE: 6 - 22 (calc) [facility] Comment: Not Reported: BUN and Creatinine are within reference range. Sodium 140 135 - 146 mmol/L [facility] Potassium, Bld 4.2 3.5 - 5.3 mmol/L [facility] Chloride 103 98 - 110 mmol/L [facility] Carbon Dioxide 26 20 - 32 mmol/L [facility] Calcium 9.4 8.6 - 10.4 mg/dL [facility] PROTEIN, TOTAL 6.9 6.1 - 8.1 g/dL [facility] ALBUMIN 4.5 3.6 - 5.1 g/dL [facility] GLOBULIN 2.4 1.9 - 3.7 g/dL (calc) [facility] ALBUMIN/GLOBULIN RATIO 1.9 1.0 - 2.5 (calc) [facility] BILIRUBIN, TOTAL 0.5 0.2 - 1.2 mg/dL [facility] ALKALINE PHOSPHATASE 55 37 - 153 U/L [facility] AST 16 10 - 35 U/L [facility] ALT 19 6 - 29 U/L [facility] Blood Venous blood specimen / Unknown 02/04/2025 10:50 AM EDT 02/04/2025 10:50 AM EDT Narrative [facility] - 02/05/2025 8:31 AM EDT FASTING:NO FASTING: NO Resulting Agency Comment Performing Organization Information Site ID: QPT Name: [facility] Address: [address] [place] [address], [address] [place] [phone] Director: Ji Fung MD us Conrado Ambriz MD LAB BLOOD ORDERABLES Final Res ult [facility] * Microalbumin / creatinine, urine ratio (06/23/2023 1:43 PM EDT) CREATININE, RANDOM URINE 80 20 - 275 mg/dL [facility] ALBUMIN, URINE 1.2 See Note: mg/dL [facility] Comment: Reference Range: Reference Range Not established ALBUMIN/CREATININE RATIO, RANDOM URINE 15 <30 mcg/mg creat [facility] Comment: The ADA defines abnormalities in albumin excretion as follows: Albuminuria Category Result (mcg/mg creatinine) Normal to Mildly increased <30 Moderately increased 30-299 Severely increased > OR = 300 The ADA recommends that at least two of three specimens collected within a 3-6 month period be abnormal before considering a patient to be within a diagnostic category. Urine Urine specimen obtained by clean catch procedure / Unknown 06/23/2023 1:43 PM EDT 06/23/2023 1:43 PM EDT Narrative Resulting Agency Comment Performing Organization Information Site ID: QPT Name: [facility] Address: [address], [address] [place] [address] Director: Ji Fung MD Analy JETT LAB URINE ORDERABLES Final Res ult [facility] * Color Fundus Photography - OU - Both Eyes (08/12/2021 12:00 PM EST) Anatomical Region Laterality Modality Head Fundus Photograp hy 08/12/2021 12:0 0 PM EST Narrative 03/05/2022 12:00 PM EDT PERFORMED AT [facility] LOCATION:[id number] [facility] Procedure Note CONVERSION, GENERIC - 01/12/2023 PERFORMED AT [facility] LOCATION:[id number] [facility] Conrado Ambriz MD OPHTH PHOTOGRAPHY Final Result from Last 3 Months or Most Recently Relevant to Health Maintenance Insurance [employer] Care Teams Inserting Operator Relationship Specialty Start Date End Date Conrado Ambriz MD [address] [address] PCP - General Internal Medicine 01/19/23 Conrado Ambriz MD [address] [facility] [address] [place] [address] PCP - ACO Reach 10/28/23 Merna Lr LPN [address] [address] 11/16/24
--- OUTSIDE RECORDS SUMMARY | 2025-05-01 13:09 | XMS_ITS | Encounter Summary ---
Author Organization [facility] Address [address] [place] [address] Care Team Providers Care Medical Record Specialist Name Role Phone Conrado Ambriz MD Primary Care Provider [phone] Conrado Ambriz MD Unavailable [phone] Kristel Rain RN Unavailable [phone] Merna Lr LPN Unavailable Encounter Details Date Type Department Care Team (Late st Contact Info) Description 06/29/2023 [facility] [address] [facility] 110 [place] [address] Conrado Ambriz MD 112 [facility] 110 [place] [address] Social History Tobacco Use Types [...] and heating? Not hard at all 04/21/2023 [facility] [...] Visit [facility]elle Rodríguez [address] [facility] 110 [place] [address] Conrado Ambriz MD 112 [facility] 110 [place] [address] 07/03/2025 10:45 AM EST Procedure Visit [facility] [address] [facility] [address] [place] [address] Prem Lebron DPM [address] [facility] 100 [place] [address] documented as of this encounter Visit Diagnoses Not on filedocumented in this encounter Additional Health Concerns Assessment Noted Time PHQ-9 Depression Total Score: 0 10/26/20 23 10:00 AM EDT documented as of this encounter Care Teams Medical Record Specialist Relationship Specialty Start Date End Date Conrado Ambriz MD [address] [facility] [address] [place] [address] PCP - General Internal Medicine 01/19/23 Conrado Ambriz MD [address] [facility] [address] [place] [address] PCP - ACO Reach 10/28/23 Kristel Rain, RN [address] [place] [address] [facility] 10/05/24 11/16/24 Merna Lr LPN [address] [facility] [address] [place] [address] 11/16/24 documented as of this encounter
--- OUTSIDE RECORDS SUMMARY | 2025-05-01 13:09 | XMS_ITS | Clinical Summary ---
Author Organization [facility] Address [address] [place] [address] Care Team Providers Care Dental Ceramist Name Role Phone Pb NORIEGA MD, Conrado Alexandra Primary Care Provider [phone] Allergies Active Allergy Reactions Criticality Noted Date Comments Moxifloxacin Hcl 01/16/2008 Simvastatin 01/16/2008 Hylan G-F 20 01/16/2008 Medications AMLODIPINE-BENAZE PRIL 5 MG-20 MG CAP Take one(1) tablet daily. 0 8 Active glyburide/metform in hcl(GLUCOVANCE 5 MG-500 MG TAB) Take one(1) tablet two(2) times daily. 0 8 Active pioglitazone hcl(ACTOS 30 MG TAB) Take one(1) tablet daily. 0 8 Active alendronate sodium(FOSAMAX 70 MG TAB) Take once per week in the morning with a full glass of water, on an empty stomach, and do not take anything else by mouth or lie down for the next 30 minutes. 0 8 Active cetirizine hcl(ZYRTEC 10 MG TAB) Take one(1) tablet daily.as needed 0 8 Active fiber(FIBER CHOICE CHEWABLE TAB) 2 tablets in the morning 0 8 Active NIACIN 500 MG TAB Take one(1) tablet daily. 0 8 Active RED YEAST RICE EXTRACT 600 MG CAP Take one(1) tablet daily. 0 8 Active FLAXSEED OIL 1,000 MG CAP Take one(1) tablet daily. 0 8 Active docosahexanoic acid/epa(EPA FISH OIL CAP) Take one(1) tablet three times daily. 0 8 Active CALCIUM-CHOLECALC IFEROL (D3) 500 MG (1,250 MG)-200 UNIT TAB Take one(1) tablet daily. 0 8 Active acetaminophen(TYL ENOL ARTHRITIS 650 MG TAB) as needed 0 8 Active ergocalciferol( TAMIN D 400 UNIT CAP) Take one(1) tablet daily. 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 Social History Tobacco Use Types Packs/Day Years Used Date Smoking Tobacco: Never Alcohol Use Standard Drinks/Week Comments No 0 (1 standard drink = 0.6 oz pur e alcohol) Comments No Sex and Gender Information Value Date Recorded Sex Assigned at Not on file Legal Sex Female 8:07 AM EST Gender Identity Not on file Sexual Orientation Not on file Last Filed Vital Signs Vital Sign Reading Time Taken Comments Blood Pressure 124/72 04/16/2008 1:53 PM EDT Pulse 104 01/16/2008 9:54 AM EDT Temperature 35.8 C (96.5 F) 01/16/2008 9:54 AM EDT Respiratory Rate 18 01/16/2008 9:54 AM EDT Oxygen Saturation 95% 01/16/2008 9:54 AM EDT Inhaled Oxygen Concentration - - Weight 77.1 kg (170 lb) 04/16/2008 1:53 PM EDT Height 160 cm (5' 3 ) 04/16/2008 1:53 PM EDT Body Mass Index 30.11 04/16/2008 1:53 PM EDT Plan of Treatment Health Maintenance Due Date Last Done Comments Anxiety Screening 1954 Depression Screening 1954 DTaP,Tdap,Td Vaccine (1 - Tdap) 1955 Diabetes Screening 1981 Pneumococcal Vaccine: 50+ (1 of 1 - PCV) 1986 Shingrix Vaccine (1 of 2) 1986 Bone Density Screening 2001 RSV Vaccine (1 - 1-dose 75+ series) 2011 Advance Directive Discussion 08/29/2024 Influenza Vaccine (#1) 2025 Insurance MEDICARE HOSPITAL/MEDICAL GENERIC Care Teams Dental Ceramist Relationship Specialty Start Date End Date Conrado Ambriz II, MD PCP - General 10/27/06
--- OUTSIDE RECORDS SUMMARY | 2025-05-01 13:09 | XMS_ITS | Encounter Summary ---
Author Organization [facility] Address [address] [place] [address] Care Team Providers Care Corporate Financial Analyst Name Role Phone Conrado Ambriz MD Primary Care Provider [phone] Conrado Ambriz MD Unavailable [phone] Kristel Rain RN Unavailable [phone] Merna Lr LPN Unavailable Encounter Details Date Type Department Care Team (Late st Contact Info) Description 07/12/2024 [facility] 112 [facility] 110 [place] [address] Conrado Ambriz MD 112 [facility] 110 [place] [address] Social History Tobacco Use Types [...] any clubs o r organizations such as hinduism groups, unions, fraternal or athletic groups, or [...] Recorded Patient Health Questionnaire-2 Score 0 07/02/2024 [facility] of Occupat ional Health - Occupational Stress [...] Visit [facility] [place] [facility] [address] [facility] 110 [place] [address] Conrado Ambriz MD 112 [facility] 110 [place] [address] 07/03/2025 10:45 AM EST Procedure Visit [facility] [place] [facility] [address] [place] [address] [place] [address] Prem Lebron DPM [address] [place] 100 [place] [address] documented as of this encounter Visit Diagnoses Not on filedocumented in this encounter Additional Health Concerns Assessment Noted Time PHQ-9 Depression Total Score: 0 07/02/20 24 1:00 PM EST documented as of this encounter Care Teams Corporate Financial Analyst Relationship Specialty Start Date End Date Conrado Ambriz MD [address] [facility] 110 [place] [address] PCP - General Internal Medicine 01/19/23 Conrado Ambriz MD [address] [facility] 110 [place] [address] PCP - ACO Reach 10/28/23 Kristel Rain, RN [address] [facility] [place] [address] Clinical [facility] 10/05/24 11/16/24 Merna Lr LPN [address] [facility] 110 [place] [address] 11/16/24 documented as of this encounter
--- OUTSIDE RECORDS SUMMARY | 2025-05-01 13:09 | XMS_ITS | Encounter Summary ---
Author Organization [facility] Address [address] [place] [address] Care Team Providers Care Heating And Refrigeration Inspector Name Role Phone Conrado Ambriz MD Primary Care Provider [phone] Conrado Ambriz MD Unavailable [phone] Merna Lr LPN Unavailable Encounter Details Date Type Department Care Team (Late st Contact Info) Description 04/22/2025 Abstract [facility] [place] [facility] [address] [facility] 110 [place] [address] Conrado Ambriz MD 112 [facility] 110 [place], [place] [address] Social History Tobacco Use Types Packs/Day Years [...] often do you attend chur ch or confucianist services? 1 to 4 times per year [...] Recorded Patient Health Questionnaire-2 Score 0 04/25/2025 [facility] of Occupat ional Health - Occupational [...] place to sleep or slept in a senior living (including now)? No 04/21/2023 Comments Unknown Sex [...] 10:00 AM EDT Office Visit [facility] [place] [facility] 112 [facility] 110 [place] [address] Conrado Ambriz MD [address] [facility] 110 [place] [address] 07/03/2025 10:45 AM EST Procedure [facility] [address] [place] [address] [place] [address] Prem Lebron DPM [address] [place] 100 [place] [address] documented as of this encounter Visit Diagnoses Not on filedocumented in this encounter Additional Health Concerns Assessment Noted Time PHQ-9 Depression Total Score: 0 07/02/20 24 1:00 PM EST documented as of this encounter Care Teams Heating And Refrigeration Inspector Relationship Specialty Start Date End Date Conrado Ambriz MD [address] [facility] 110 [place] [address] PCP - General Internal Medicine 01/19/23 Conrado Ambriz MD [address] [facility] 110 [place] [address] PCP - ACO Reach 10/28/23 Merna Lr LPN [address] [facility] 110 [place] [address] 11/16/24 documented as of this encounter
--- OUTSIDE RECORDS SUMMARY | 2025-05-01 13:09 | XMS_ITS | Encounter Summary ---
Author Organization [facility] Address [address] [place] [address] Care Team Providers Care Sourcing Coordinator Name Role Phone Conrado Ambriz MD Primary Care Provider [phone] Conrado Ambriz MD Unavailable [phone] Kristel Rain RN Unavailable [phone] Merna Lr LPN Unavailable Encounter Details Date Type Department Care Team (Late st Contact Info) Description 07/26/2023 [facility] 112 [facility] 110 [place] [address] Conrado Ambriz MD 112 [facility] 110 [place] [address] Social History Tobacco Use Types [...] and heating? Not hard at all 04/21/2023 [facility] of Occupat ional Health - Occupational [...] Visit [facility] [place] Rodríguez [address] [facility] 110 [place] [address] Conrado Ambriz MD 112 [place] [facility] 110 [place] [address] 07/03/2025 10:45 AM EST Procedure Visit [facility] [place] [facility] [address] [facility] 100 [place] [address] Prem Lebron DPM [address] [facility] 100 [place] [address] documented as of this encounter Visit Diagnoses Not on filedocumented in this encounter Additional Health Concerns Assessment Noted Time PHQ-9 Depression Total Score: 0 06/23/20 10:00 AM EDT documented as of this encounter Care Teams Sourcing Coordinator Relationship Specialty Start Date End Date Conrado Ambriz MD [address] [facility] 110 [place] [address] PCP - General Internal Medicine 01/19/23 Conrado Ambriz MD [address] [facility] 110 [place] [address] PCP - ACO Reach 10/28/23 Kristel Rain, RN [address] [place] [address] Clinical [facility] 10/05/24 11/16/24 Merna Lr LPN [address] [facility] 110 [place] [address] 11/16/24 documented as of this encounter
--- OUTSIDE RECORDS SUMMARY | 2025-05-01 13:09 | XMS_ITS | Encounter Summary ---
Author Organization [facility] Address [address] [place] [address] Care Team Providers Care Boat Pilot Name Role Phone Conrado Ambriz MD Primary Care Provider [phone] Conrado Ambriz MD Unavailable [phone] Kristel Rain RN Unavailable [phone] Merna Lr LPN Unavailable Encounter Details Date Type Department Care Team (Late st Contact Info) Description 09/04/2024 [facility] 112 [facility] 110 [place] [address] Conrado Ambriz MD 112 [facility] 110 [place] [address] Social History Tobacco Use Types [...] How often do you attend chur or yarsanism services? 1 to 4 times per year [...] Recorded Patient Health Questionnaire-2 Score 0 07/02/2024 [facility] of Occupat ional Health - Occupational Stress [...] Visit [facility] [place] [facility] [address] [facility] 110 [place] [address] Conrado Ambriz MD 112 [facility] 110 [place] [address] 07/03/2025 10:45 AM EST Procedure Visit [facility] [place] [facility] [address] [place] [address] [place] [address] Prem Lebron DPM [address] [place] 100 [place] [address] documented as of this encounter Visit Diagnoses Not on filedocumented in this encounter Additional Health Concerns Assessment Noted Time PHQ-9 Depression Total Score: 0 07/02/20 24 1:00 PM EST documented as of this encounter Care Teams Boat Pilot Relationship Specialty Start Date End Date Conrado Ambriz MD [address] [facility] 110 [place] [address] PCP - General Internal Medicine 01/19/23 Conrado Ambriz MD [address] [facility] 110 [place] [address] PCP - ACO Reach 10/28/23 Kristel Rain, RN [address] [facility] [place] [address] Clinical [facility] Family [facility] 10/05/24 11/16/24 Merna Lr LPN [address] [facility] 110 [place] [address] 11/16/24 documented as of this encounter
--- OUTSIDE RECORDS SUMMARY | 2025-05-01 13:09 | XMS_ITS | Encounter Summary ---
Author Organization [facility] Address [address] [place] [address] Care Team Providers Care Cable Ferryboat Operator Name Role Phone Conrado Ambriz MD Primary Care Provider [phone] Conrado Ambriz MD Unavailable [phone] Merna Lr LPN Unavailable Encounter Details Date Type Department Care Team (Latest Contact Info) Description 04/18/2025 Travel Social History Tobacco Use Types Packs/Day [...] How often do you attend chur or gnosticist services? 1 to 4 times per year 04/21/2023 Do you belong to any clubs o r organizations such as roman catholic groups, unions, fraternal or athletic groups, or [...] Recorded Patient Health Questionnaire-2 Score 0 04/18/2025 [facility] of Occupat ional Health - [...] [facility] [place] [facility] Med[facility] [address] [email or web address] 110 [place] [address] Conrado Ambriz MD [address] [place] 110 [place] [address] 07/03/2025 10:45 AM EST Procedure Visit [facility] [place] [facility] [address] [place] [address] [place] [address] Prem Lebron, DPTimoteo [address] [facility] 100 [place] [address] documented as of this encounter Visit Diagnoses Not on filedocumented in this encounter Additional Health Concerns Assessment Noted Time PHQ-9 Depression Total Score: 0 07/02/20 24 1:00 PM EST documented as of this encounter Care Teams Cable Ferryboat Operator Relationship Specialty Start Date End Date Conrado Ambriz MD [address] [facility] 110 [place] [address] PCP - General Internal Medicine 01/19/23 Conrado Ambriz MD [address] [facility] 110 [place] [address] PCP - ACO Reach 10/28/23 Merna Lr LPN [address] [facility] 110 [place] [address] 11/16/24 documented as of this encounter
--- OUTSIDE RECORDS SUMMARY | 2025-05-01 13:09 | XMS_ITS | Encounter Summary ---
Author Organization [facility] Address [address] [place] [address] Care Team Providers Care Research Fellow Name Role Phone Conrado Ambriz MD Primary Care Provider [phone] Conrado Ambriz MD Unavailable [phone] Merna Lr LPN Unavailable Encounter Details Date Type Department Care Team (Late st Contact Info) Description 04/15/2025 Abstract [facility] [address] [place] [address] Merna Lr LPN [address] [facility] 110 [place] [address] Social History Tobacco Use Types [...] often do you attend chur ch or congregational services? 1 to 4 times per year 04/21/2023 Do you belong to any clubs o r organizations such as episcopal groups, unions, fraternal or athletic groups, or [...] Recorded Patient Health Questionnaire-2 Score 0 04/18/2025 [facility] of Occupat ional Health - Occupational Stress [...] 10:00 AM EDT Office Visit [facility] [place] [facility] [address] [place] 110 [place] [address] Conrado Ambriz MD [address] [facility] 110 [place] [address] 07/03/2025 10:45 AM EST Procedure Visit [facility] [place] [facility] [address] [place] [address] [place] [address] Prem Lebron, DPTimoteo [address] [place] 100 [place] [address] documented as of this encounter Visit Diagnoses Not on filedocumented in this encounter Additional Health Concerns Assessment Noted Time PHQ-9 Depression Total Score: 0 07/02/20 24 1:00 PM EST documented as of this encounter Care Teams Research Fellow Relationship Specialty Start Date End Date Conrado Ambriz MD [address] [facility] 110 [place] [address] PCP - General Internal Medicine 01/19/23 Conrado Ambriz MD [address] [facility] 110 [place] [address] PCP - ACO Reach 10/28/23 Merna Lr LPN [address] [facility] 110 [place] [address] 11/16/24 documented as of this encounter
--- OUTSIDE RECORDS SUMMARY | 2025-05-01 13:09 | XMS_ITS | Encounter Summary ---
Author Organization [facility] Address [address] [place] [address] Care Team Providers Care Warning Analyst Name Role Phone Conrado Ambriz MD Primary Care Provider [phone] Conrado Ambriz MD Unavailable [phone] Kristel Rain RN Unavailable [phone] Merna Lr LPN Unavailable Encounter Details Date Type Department Care Team (Late st Contact Info) Description 08/01/2023 [facility] 112 [facility] 110 [place] [address] Conrado Ambriz MD 112 [facility] 110 [place] [address] Social History Tobacco Use Types [...] How often do you attend chur or alevism services? 1 to 4 times per year [...] and heating? Not hard at all 04/21/2023 [facility] of Occupat ional Health - [...] place to sleep or slept in a halfway (including now)? No 04/21/2023 Comments Unknown Sex [...] Visit [facility] [place] Rodríguez [address] [facility] 110 [place] [address] Conrado Ambriz MD 112 [facility] 110 [place] [address] 07/03/2025 10:45 AM EST Procedure Visit [facility] [place] [facility] [address] [facility] 100 [place] [address] Prem Lebron DPM [address] [facility] 100 [place] [address] documented as of this encounter Visit Diagnoses Not on filedocumented in this encounter Additional Health Concerns Assessment Noted Time PHQ-9 Depression Total Score: 0 06/23/20 10:00 AM EDT documented as of this encounter Care Teams Warning Analyst Relationship Specialty Start Date End Date Conrado Ambriz MD [address] [facility] 110 [place] [address] PCP - General Internal Medicine 01/19/23 Conrado Ambriz MD [address] [facility] 110 [place] [address] PCP - ACO Reach 10/28/23 Kristel Rain, RN [address] [place] [address] Clinical [facility] 10/05/24 11/16/24 Merna Lr LPN [address] [facility] 110 [place] [address] 11/16/24 documented as of this encounter
--- OUTSIDE RECORDS SUMMARY | 2025-05-01 13:09 | XMS_ITS | Encounter Summary ---
Author Organization [facility] Address [address] [place] [address] Care Team Providers Care Seismograph Observer Name Role Phone Conrado Ambriz MD Primary Care Provider [phone] Conrado Ambriz MD Unavailable [phone] Merna Lr LPN Unavailable Encounter Details Date Type Department Care Team (Late st Contact Info) Description 04/18/2025 Bamboo flowsheet [facility] [place] [facility] [address] [facility] 110 [place] [address] Emely Perez, IMPERSONATOR CHARACTER 112 [place] [facility] 110 [place], [place] [address] Social History Tobacco Use Types Packs/Day Years [...] often do you attend chur ch or roman catholic services? 1 to 4 times per year 04/21/2023 Do you belong to any clubs o r organizations such as jewish groups, unions, fraternal or athletic groups, or [...] Recorded Patient Health Questionnaire-2 Score 0 04/18/2025 [facility] of Occupat ional Health - Occupational [...] [facility] [place] [facility] [address] [facility] 110 [place] [address] Conrado Ambriz MD [address] [facility] 110 [place] [address] 07/03/2025 10:45 AM EST Procedure Visit [facility] [address] [place] [address] [place] [address] Prem Lebron DPM [address] [place] 100 [place] [address] documented as of this encounter Visit Diagnoses Not on filedocumented in this encounter Additional Health Concerns Assessment Noted Time PHQ-9 Depression Total Score: 0 07/02/20 24 1:00 PM EST documented as of this encounter Care Teams Seismograph Observer Relationship Specialty Start Date End Date Conrado Ambriz MD [address] [facility] 110 [place] [address] PCP - General Internal Medicine 01/19/23 Conrado Ambriz MD [address] [facility] 110 [place] [address] PCP - ACO Reach 10/28/23 Merna Lr LPN [address] [facility] 110 [place] [address] 11/16/24 documented as of this encounter
--- OUTSIDE RECORDS SUMMARY | 2025-05-01 13:09 | XMS_ITS | Encounter Summary ---
Author Organization [facility] Address [address] [place] [address] Care Team Providers Care X Ray Developing Machine Operator Name Role Phone Conrado Ambriz MD Primary Care Provider Conrado Ambriz MD Unavailable [phone] Kristel Rain RN Unavailable Merna Lr LPN Unavailable Encounter Details Date Type Department Care Team (Late Contact Info) Description 03/23/2023 Abstract [facility] [place] [facility] [address] [facility] 110 [place] [address] Conrado Ambriz MD [address] [facility] 110 [place], [place] [address] Social History Tobacco Use Types Packs/Day Years [...] AM EDT Office Visit [facility] [place] [facility] [address] [facility] 110 [place] [address] Conrado Ambriz MD [address] [facility] 110 [place] [address] 07/03/2025 10:45 AM EST Procedure Visit [facility] [place] [facility] [address] [facility] 100 [place] [address] Prem Lebron, DPM [address] [facility] 100 [place] [address] documented as of this encounter Visit Diagnoses Not on filedocumented in this encounter Care Teams X Ray Developing Machine Operator Relationship Specialty Start Date End Date Conrado Ambriz MD [address] [facility] 110 [place] [address] PCP - General Internal Medicine 01/19/23 Conrado Ambriz MD [address] [facility] 110 [place] [address] PCP - ACO Reach 10/28/23 Kristel Rain, RN [address] [place] [address] Clinical [facility] 10/05/24 11/16/24 Merna Lr LPN [address] [facility] 110 [place] [address] 11/16/24 documented as of this encounter
--- OUTSIDE RECORDS SUMMARY | 2025-05-01 13:09 | XMS_ITS | Encounter Summary ---
Author Organization [facility] Address [address] [place] [address] Care Team Providers Care Parachute Crown Sewer Name Role Phone Conrado Ambriz MD Primary Care Provider [phone] Conrado Ambriz MD Unavailable [phone] Kirstel Rain RN Unavailable [phone] Merna Lr LPN Unavailable Encounter Details Date Type Department Care Team (Late st Contact Info) Description 10/26/2024 [facility] 112 [facility] 110 [place] [address] Conrado Ambriz MD 112 [facility] 110 [place] [address] Social History Tobacco Use Types [...] any clubs o r organizations such as islam groups, unions, fraternal or athletic groups, or [...] Recorded Patient Health Questionnaire-2 Score 0 07/02/2024 [facility] [place] of Occupat ional Health - Occupational Stress [...] Visit [facility] [place] [facility] [address] [facility] 110 [place] [address] Conrado Ambriz MD 112 [facility] 110 [place] [address] 07/03/2025 10:45 AM EST Procedure Visit [facility] [place] [facility] [address] [place] [address] [place] [address] Prem Lebron DPM [address] [place] 100 [place] [address] documented as of this encounter Visit Diagnoses Not on filedocumented in this encounter Additional Health Concerns Assessment Noted Time PHQ-9 Depression Total Score: 0 07/02/20 24 1:00 PM EST documented as of this encounter Care Teams Parachute Crown Sewer Relationship Specialty Start Date End Date Conrado Ambriz MD [address] [facility] 110 [place] [address] PCP - General Internal Medicine 01/19/23 Conrado Ambriz MD [address] [facility] 110 [place] [address] PCP - ACO Reach 10/28/23 Kristel Rain, RN [address] [facility] [place] [address] Clinical [facility] 10/05/24 11/16/24 Merna Lr LPN [address] [facility] 110 [place] [address] 11/16/24 documented as of this encounter
--- OUTSIDE RECORDS SUMMARY | 2025-05-01 13:09 | XMS_ITS | Encounter Summary ---
Author Organization [facility] Address [address] [place] [address] Care Team Providers Care Steel Manager Name Role Phone Conrado Ambriz MD Primary Care Provider [phone] Conrado Ambriz MD Unavailable [phone] Merna Lr LPN Unavailable Encounter Details Date Type Department Care Team (Late st Contact Info) Description 04/25/2025 Telephone [facility] [address] [facility] 110 [place] [address] Emely Perez, SHIPPING AGENT [address] [facility] 110 [place] [address] Social History Tobacco Use Types [...] often do you attend chur ch or denominational services? 1 to 4 times per year 04/21/2023 Do you belong to any clubs o r organizations such as catholic groups, unions, fraternal or athletic groups, [...] Recorded Patient Health Questionnaire-2 Score 0 04/25/2025 [facility] [place] of Occupat ional Health - Occupational Stress [...] hopeless Not at all 03/30 8:51 AM TIANA PANDA Patient Health Questionnaire-2 Score 0 03/30 8:51 AM TIANA PANDA documented as of this encounter Miscellaneous Notes * Telephone Encounter - Debra Cuevas - 04/26/2025 11:35 AM EDT Spoke to Howard and notified him of US appointment at [facility] 05/01 at 1pm and when to call Dr. Diamond's Office to schedule for her toe. * Telephone Encounter - TIANA TORRES - 04/26/2025 9:07 AM EDT LM for son to CB * Telephone Encounter - TIANA TORRES - 04/25/2025 9:41 AM EDT Called patient's son Howard and LM for him to CB for the information for his mom's US of the thyroid. It will be 05/01/25 @ [facility] at 1pm She will need to call Dr Lopez office at [phone] To make an appointment for her toe. After May 08 due to the associate loan officer being out of the office. documented in this encounter Plan of Treatment Upcoming Encounters Date Type Department Care Team (Late st Contact Info) Description 05/09/2025 10:00 AM EDT Office Visit [facility] [address] [facility] [address] [place] [id number] Conrado Ambriz MD [address] [facility] 110 [place] [address] 07/03/2025 10:45 AM EST Procedure Visit [facility] [address] [place] [address] [place] [address] Prem Lebron DPM [address] [place] [address] [place] [address] documented as of this encounter Visit Diagnoses Not on filedocumented in this encounter Additional Health Concerns Assessment Noted Time PHQ-9 Depression Total Score: 0 07/02/20 24 1:00 PM EST documented as of this encounter Care Teams Steel Manager Relationship Specialty Start Date End Date Conrado Ambriz MD [address] [place] [address] PCP - General Internal Medicine 01/19/23 Conrado Ambriz MD [address] [place] [address] PCP - ACO Reach 10/28/23 Merna Lr LPN [address] [address] 11/16/24 documented as of this encounter
--- OUTSIDE RECORDS SUMMARY | 2025-05-01 13:09 | XMS_ITS | Encounter Summary ---
Author Organization [facility] Address [address] [place] [address] Care Team Providers Care Glass Embosser Name Role Phone Conrado Ambriz MD Primary Care Provider [phone] Conrado Ambriz MD Unavailable [phone] Kristel Rain RN Unavailable [phone] Merna Lr LPN Unavailable Encounter Details Date Type Department Care Team (Late st Contact Info) Description 10/03/2024 [facility] 112 [facility] 110 [place] [address] Conrado Ambriz MD 112 [facility] 110 [place] [address] Social History Tobacco Use Types [...] How often do you attend chur or methodist services? 1 to 4 times per year 04/21/2023 Do you belong to any clubs o r organizations such as pentecostal groups, unions, fraternal or athletic groups, or [...] Recorded Patient Health Questionnaire-2 Score 0 07/02/2024 [facility] [place] of Occupat ional Health - Occupational Stress [...] Visit [facility] [address] [facility] 110 [place] [address] Conrado Ambriz MD 112 [facility] 110 [place] [address] 07/03/2025 10:45 AM EST Procedure Visit [facility] [address] [place] [address] [place] [address] Prem Lebron DPM [address] [place] [address] [place] [address] documented as of this encounter Visit Diagnoses Not on filedocumented in this encounter Additional Health Concerns Assessment Noted Time PHQ-9 Depression Total Score: 0 07/02/20 24 1:00 PM EST documented as of this encounter Care Teams Glass Embosser Relationship Specialty Start Date End Date Conrado Ambriz MD [address] [facility] 110 [place] [address] PCP - General Internal Medicine 01/19/23 Conrado Ambriz MD [address] [facility] 110 [place] [address] PCP - ACO Reach 10/28/23 Kristel Rain, RN [address] [facility] [place] [address] [facility] 10/05/24 11/16/24 Merna Lr LPN [address] [facility] 110 [place] [address] 11/16/24 documented as of this encounter
--- OUTSIDE RECORDS SUMMARY | 2025-05-01 13:09 | XMS_ITS | Encounter Summary ---
Author Organization [facility] Address [address] [place] [address] Care Team Providers Care Network Security Administrator Name Role Phone Conrado Ambriz MD Primary Care Provider [phone] Conrado Ambriz MD Unavailable [phone] Merna Lr LPN Unavailable Encounter Details Date Type Department Care Team (Late st Contact Info) Description 01/02/2025 Abstract [facility] [address] [facility] 110 [place] [address] Conrado Ambriz MD 112 [facility] 110 [place], [place] [id number] Social History Tobacco Use Types Packs/Day Years [...] often do you attend chur ch or mandaen services? 1 to 4 times per year 04/21/2023 Do you belong to any clubs o r organizations such as mandaen groups, unions, fraternal or athletic groups, or [...] Date Recorded Patient Health Questionnaire-2 Score 0 11/29/2024 [facility] of Occupat ional Health - Occupational Stress [...] place to sleep or slept in a fpc (including now)? No 04/21/2023 Comments Unknown Sex [...] [facility] 110 [place] [address] Conrado Ambriz MD 112 [facility] 110 [place] [address] 07/03/2025 10:45 AM EST Procedure Visit [facility] [address] [facility] [address] [place] [phone] Prem Lebron DPM [address] [place] [address] [place] [address] documented as of this encounter Visit Diagnoses Not on filedocumented in this encounter Additional Health Concerns Assessment Noted Time PHQ-9 Depression Total Score: 0 07/02/20 24 1:00 PM EST documented as of this encounter Care Teams Network Security Administrator Relationship Specialty Start Date End Date Conrado Ambriz MD [address] [place] [address] [place] [address] PCP - General Internal Medicine 01/19/23 Conrado Ambriz MD [address] [place] [address] [place] [address] PCP - ACO Reach 10/28/23 Merna Lr LPN [address] [place] [address] [place] [address] 11/16/24 documented as of this encounter
--- OUTSIDE RECORDS SUMMARY | 2025-05-01 13:09 | XMS_ITS | Encounter Summary ---
Author Organization [facility] Address [address] [place] [address] Care Team Providers Care Bottling Equipment Sales Representative Name Role Phone Conrado Ambriz MD Primary Care Provider [phone] Conrado Ambriz MD Unavailable [phone] Merna Lr LPN Unavailable Encounter Details Date Type Department Care Team (Late st Contact Info) Description 01/09/2025 Abstract [facility] [address] [facility] 110 [place] [address] Conrado Ambriz MD 112 [facility] 110 [place], [place] [address] Social History Tobacco Use Types Packs/Day Years [...] often do you attend chur ch or latter-day services? 1 to 4 times per year 04/21/2023 Do you belong to any clubs o r organizations such as denominational groups, unions, fraternal or athletic groups, or [...] Recorded Patient Health Questionnaire-2 Score 0 11/29/2024 [facility] of Occupat ional Health - [...] Visit [facility] [place] [facility] [address] [facility] [address] [place] [address] Conrado Ambriz MD 112 [facility] 110 [place] [address] 07/03/2025 10:45 AM EST Procedure Visit [facility] [address] [facility] [address] [place] [phone] Prem Lebron DPM [address] [facility] 100 [place] [address] documented as of this encounter Visit Diagnoses Not on filedocumented in this encounter Additional Health Concerns Assessment Noted Time PHQ-9 Depression Total Score: 0 07/02/20 24 1:00 PM EST documented as of this encounter Care Teams Bottling Equipment Sales Representative Relationship Specialty Start Date End Date Conrado Ambriz MD [address] [place] [address] [place] [address] PCP - General Internal Medicine 01/19/23 Conrado Ambriz MD [address] [place] [address] [place] [address] PCP - ACO Reach 10/28/23 Merna Lr LPN [address] [facility] 110 [place] [address] 11/16/24 documented as of this encounter
--- OUTSIDE RECORDS SUMMARY | 2025-05-01 13:09 | XMS_ITS | Encounter Summary ---
Author Organization [facility] Address [address] [place] [address] Care Team Providers Care Analysis Consultant Name Role Phone Conrado Ambriz MD Primary Care Provider [phone] Conrado Ambriz MD Unavailable [phone] Kristel Rain RN Unavailable [phone] Merna Lr LPN Unavailable Encounter Details Date Type Department Care Team (Late st Contact Info) Description 07/24/2023 Abstract [facility] [address] [facility] [address] [place] [address] Emily Beck NP Social History Tobacco Use Types Packs/Day Years [...] often do you attend chur ch or mandaeism services? 1 to 4 times per year 04/21/2023 Do you belong to any clubs o r organizations such as christian groups, unions, fraternal or athletic groups, or [...] and heating? Not hard at all 04/21/2023 [facility] of Occupat ional Health - [...] Office Visit [facility] [place] [facility] [address] [facility] 110 [place] [address] Conrado Ambriz MD 112 [facility] 110 [place] [address] 07/03/2025 10:45 AM EST Procedure Visit [facility] [address] [place] [address] [place] [address] Prem Lebron DPM [address] [place] [address] [place] [address] documented as of this encounter Visit Diagnoses Not on filedocumented in this encounter Additional Health Concerns Assessment Noted Time PHQ-9 Depression Total Score: 0 06/23/20 10:00 AM EDT documented as of this encounter Care Teams Analysis Consultant Relationship Specialty Start Date End Date Conrado Ambriz MD [address] [facility] 110 [place] [address] PCP - General Internal Medicine 01/19/23 Conrado Ambriz MD [address] [facility] 110 [place] [address] PCP - ACO Reach 10/28/23 Kristel Rain, RN [address] [place] [address] [facility] 10/05/24 11/16/24 Merna Lr LPN [address] [facility] 110 [place] [address] 11/16/24 documented as of this encounter
--- OUTSIDE RECORDS SUMMARY | 2025-05-01 13:09 | XMS_ITS | Encounter Summary ---
Author Organization [facility] Address [address] [place] [address] Care Team Providers Care Bridge Opener Name Role Phone Conrado Ambriz MD Primary Care Provider [phone] Conrado Ambriz MD Unavailable [phone] Kristel Rain RN Unavailable [phone] Merna Lr LPN Unavailable Encounter Details Date Type Department Care Team (Late st Contact Info) Description 10/30/2024 [facility] 112 [facility] 110 [place] [address] Conrado Ambriz MD 112 [facility] 110 [place] [address] Social History Tobacco Use Types [...] How often do you attend chur or temple services? 1 to 4 times per year 04/21/2023 Do you belong to any clubs o r organizations such as mosque groups, unions, fraternal or athletic groups, or [...] Recorded Patient Health Questionnaire-2 Score 0 07/02/2024 [facility] [place] of Occupat ional Health - Occupational Stress [...] Visit [facility] [place] [facility] [address] [facility] [address] [place] [address] Conrado Ambriz MD 112 [facility] 110 [place] [address] 07/03/2025 10:45 AM EST Procedure Visit [facility] [address] [place] [address] [place] [address] Prem Lebron DPM [address] [place] [address] [place] [address] documented as of this encounter Visit Diagnoses Not on filedocumented in this encounter Additional Health Concerns Assessment Noted Time PHQ-9 Depression Total Score: 0 07/02/20 24 1:00 PM EST documented as of this encounter Care Teams Bridge Opener Relationship Specialty Start Date End Date Conrado Ambriz MD [address] [facility] 110 [place] [address] PCP - General Internal Medicine 01/19/23 Conrado Ambriz MD [address] [facility] 110 [place] [address] PCP - ACO Reach 10/28/23 Kristel Rain, RN [address] [facility] [place] [address] [facility] 10/05/24 11/16/24 Merna Lr LPN [address] [facility] 110 [place] [address] 11/16/24 documented as of this encounter
--- OUTSIDE RECORDS SUMMARY | 2025-05-01 13:10 | XMS_ITS ---
Author Organization [facility] Address [address] [place] [address] Care Team Providers Care Senior Resident Care Director Name Role Phone Conrado Ambriz MD Primary Care Provider [phone] Conrado Ambriz MD Unavailable [phone] Merna Lr LPN Unavailable Chronic Care Management (CCM) Status:Enrolled (Active) Start date:08/29/2016 Enrollment date:08/29/2016 Overview 07/05/23, 11:26 AM - Susantuesday, LINE ASSEMBLY UTILITY WORKER- Patient gives verbal consent to be enrolled in CCM Program and understands there could be a bill for this service. Case Team Name Relationship Phone Merna Lr LPN(Responsible Staff) [phone] Continued Care and Services Coordination
--- OUTSIDE RECORDS SUMMARY | 2025-05-01 13:10 | XMS_ITS | Encounter Summary ---
Author Organization [facility] Address [address] [place] [address] Care Team Providers Care Rn Call Center Name Role Phone Conrado Ambriz MD Primary Care Provider Conrado Ambriz MD Unavailable [phone] Kristel Rain RN Unavailable [phone] Merna Lr LPN Unavailable Encounter Details Date Type Department Care Team (Late st Contact Info) Description 07/03/2024 [facility] 112 [facility] 110 [place] [address] Conrado Ambriz MD 112 [facility] 110 [place] [address] Social History Tobacco Use Types [...] any clubs o r organizations such as rastafarian groups, unions, fraternal or athletic groups, or [...] Recorded Patient Health Questionnaire-2 Score 0 07/02/2024 [employer] [place] of Occupat ional Health - Occupational Stress [...] place to sleep or slept in a nursing home (including now)? No 04/21/2023 Comments Unknown [...] Visit [facility] [place] [facility] [address] [facility] [address] [place] [address] Conrado Ambriz MD 112 [facility] 110 [place] [address] 07/03/2025 10:45 AM EST Procedure Visit [facility] [address] [place] [address] [place] [address] Prem Lebron DPM [address] [place] 100 [place] [address] documented as of this encounter Visit Diagnoses Not on filedocumented in this encounter Additional Health Concerns Assessment Noted Time PHQ-9 Depression Total Score: 0 07/02/20 24 1:00 PM EST documented as of this encounter Care Teams Rn Call Center Relationship Specialty Start Date End Date Conrado Ambriz MD [address] [facility] 110 [place] [address] PCP - General Internal Medicine 01/19/23 Conrado Ambriz MD [address] [facility] 110 [place] [address] PCP - ACO Reach 10/28/23 Kristel Rain, RN [address] [facility] [place] [address] [facility] 10/05/24 11/16/24 Merna Lr LPN [address] [facility] 110 [place] [address] 11/16/24 documented as of this encounter
--- OUTSIDE RECORDS SUMMARY | 2025-05-01 17:50 | XMS_ITS | CCD ---
Author Organization [facility] Care Team Providers Care Resident Care Director Name Role Phone Sadiq Barton Unavailable [...] DAYANNA Consulting Unavailable DITTY, SADIQ Consulting Unavailable DITTKannan, SADIQ Attending Unavailable DITTKannan, SADIQ Admitting Unavailable AMBRIZ, DR RODRÍGUEZ Primary [...] DR RODRÍGUEZ Primary Care Unavailable NILL, DR OLPEZ Admitting Unavailable NILL, DR LOPEZ Consulting Unavailable NILL, DR LOPEZ Attending Unavailable AMBRIZ, DR RODRÍGUEZ Primary Care Unavailable NILL, DR LOPEZ Admitting Unavailable MAGNOLIA RAUSCH Consulting Unavailable MD Fernando Diamond Emergency Provider [phone] LEANN Ambriz Primary Care Provider LEANN Ambriz Primary Care Provider [phone] MD Sadiq Barton Attending Provider [phone] Conrado Ambriz MD Primary Care Provider Conrado Ambriz MD Unavailable Sadiq Barton Admitting Unavailable Sadiq Barton Attending Unavailable Conrado Ambriz Primary Care Unavailable Conrado Ambriz Primary Care Unavailable Nayan Dominguez Admitting Unavailable Nayan Dominguez Attending Unavailable Conrado Ambriz II Primary Care Provider Nayan Dominguez APRN Attending Provider Koffi MCPHERSON, Kristel Unavailable Conrado Ambriz II Primary Care Provider Nayan Dominguez APRN Attending Provider Lr METAL PRODUCTS FABRICATOR ASSEMBLER, Merna Unavailable Unavailable Lr METAL PRODUCTS FABRICATOR ASSEMBLER, Merna Unavailable Conrado Ambriz II Primary Care Provider Nayan Dominguez APRN Attending Provider PREM MORALES Attending Unavailable ADONAY DIOP Attending Unavailable CONRADO AMBRIZ Attending Unavailable ERASMO ALVAREZ Attending Unavailable CONRADO AMBRIZ Referring Unavailable ERASMO ALVAREZ Referring Unavailable PREM MORALES Attending Unavailable CONRADO AMBRIZ Attending Unavailable ANALY HAMMOND Attending Unavailable PREM MORALES Attending Unavailable CONRADO AMBRIZ Attending Unavailable CONRADO AMBRIZ Attending Unavailable PREM MORALES Attending Unavailable ADONAY DIOP Attending Unavailable ADONAY DIOP Attending Unavailable CONRADO AMBRIZ Attending Unavailable Allergies Allergy Classification Reported Allergen(s) Allergy Type Date of Onset Reaction(s) Facility (10 sources) Adhesive agent Drug allergy 4 Unknown, Unknown Reaction, [facility] (20 sources) Ciprofloxacin Drug Allergy 3 [facility] (11 sources) HYLAN G-F 20 Drug Allergy 3 [facility] (20 sources) moxifloxacin Drug Allergy 8 [facility] (11 sources) Simvastatin Drug Allergy 3 stomach upset, Diarrhea/Vomit ing, Diarrhea/Vomit ing, stomach upset [facility] (10 sources) Temazepam Drug Allergy 4 rash, sore mouth [facility] (1 source) Ciprofloxacin Drug Allergy [facility] (1 source) HYLAN G-F 20 Drug Allergy 5 [facility] (1 source) moxifloxacin Drug Allergy 0 [facility] (1 source) Simvastatin Drug Allergy 5 [facility] (9 sources) bandaid Allergy to substance 3 Rash [facility] (20 sources) Ciprofloxacin Drug Allergy 3 Rash [facility] (20 sources) metFORMIN Drug Allergy 3 Diarrhea [facility] (20 sources) Simvastatin Allergy to substance 8 GI intolerance, Nausea And Vomiting [facility] (20 sources) Temazepam Allergy to substance 3 Rash [facility] (20 sources) Hylan G-F 20 Propensity to adverse reactions 8 Swelling [facility] (20 sources) Wound Dressing Adhesive Drug Allergy 3 Rash [facility] Medications Current Medications Medication Drug Class(es) Dates Sig (Normalized) Sig (Original) amLODIPine 5 mg oral tablet (20 sources) Dihydropyridine Calcium Channel Dasia Start: 09-09-2021 take 1 tablet by mouth once daily amLODIPine (Norvasc) 5 MG tablet Indications: Benign essential hypertension Take 1 tablet (5 mg) by mouth Daily 100 tablet 3 01/28/2025 Active take 1 tablet by erika every twenty-four hours amLODIPine Besylate 5 MG [...] 10 days. 30 capsule 10/25/2024 11/04/2024 Active aspirin 81 mg delayed release oral tablet (4 sources) Platelet Aggregation Inhibitor, Nonsteroidal Anti-inflammatory Drug Start: 04-19-2025 Aspirin (Adult Low Dose Aspirin) 81 mg tablet,delayed release (DR/EC) Active 81 MG PO Daily April 19, 2025 12:00am Complies with drug therapy azelastine hydrochloride 0.137 mg/actuat metered dose nasal spray (2 sources) Histamine-1 Receptor Antagonist Start: 04-18-2025 End: 04-18-2026 take 2 spray(s) nasal route in the morning azelastine (Astelin) 0.1 % nasal spray Indications: Environmental and seasonal allergies Administer 2 sprays into each nostril in the morning and 2 sprays before bedtime. Use in each nostril as directed. 30 mL 2 04/18/2025 04/18/2026 Active azithromycin 250 mg oral tablet (2 [...] oral capsule (20 sources) Anti-epileptic Agent Start: 022 take 1 capsule by mouth in the morning gabapentin (Neurontin) 300 MG capsule Indications: Type 2 diabetes mellitus with peripheral neuropathy (HCC) Take 1 capsule (300 mg) by mouth in the morning and 1 capsule (300 mg) before bedtime. 200 capsule 3 01/28/2025 Active take 1 capsule by mo [facility] every twenty-four hours Gabapentin 300 MG [...] Start: 05-09-2024 take 2 tablets by mo ut once daily Glipizide 5 mg tablet Active 10 MG PO Daily May 09, 2024 12:00am Complies with drug therapy Start: 05-09-2024 take 10 mg by mouth [...] empty stomach Orally Once a day Active linaclotide 0.072 mg oral capsule (1 source) Guanylate Cyclase-C Agonist Start: 04-19-2025 take 1 capsule by mouth once daily Linaclotide (Linzess) 72 mcg capsule Active 72 MCG PO Daily 90 90 April 19, 2025 12:00am Complies with drug therapy loperamide hydrochloride 2 mg oral tablet (4 sources) Opioid Agonist Start: 08-19-2021 take 1 tablet by mouth every twenty-four hours Loperamide HCl 2 MG 1 tablet as needed Orally daily for 30 days Jul, Active take 1 tablet by mouth every six hours Imodium A-D 2 MG 1 tablet as needed Orally Four times a day Active loratadine 10 mg oral tablet (1 source) Start: 04-25-2025 End: 07-24-2025 take 1 tablet by mouth once daily loratadine (Claritin) 10 MG tablet Indications: Environmental and seasonal allergies Take 1 tablet (10 mg) by mouth Daily 30 tablet 2 04/25/2025 07/24/2025 Active meloxicam 7.5 mg oral tablet (20 [...] Daily at bedtime April 16, 2024 12:00am Complies with drug therapy Start: 09-09-2021 End: 04-16-2024 take 2 tablets [...] 16, 2024 10:10am take 2 tablets by mo [facility] every twenty-four hours rOPINIRole HCl 0.25 MG 2 tablets Orally Once a day Active SITagliptin 100 mg oral tablet (20 sources) Dipeptidyl Peptidase 4 Inhibitor Start: 04-22-2025 take 1 tablet by mouth once daily Januvia 100 MG tablet Indications: Type 2 diabetes mellitus with other neurologic complication, without long-term current use of insulin (HCC) TAKE ONE TABLET BY MOUTH EVERY DAY 90 tablet 1 04/22/2025 Active Start: 07-04-2023 take 1 tablet by erika once daily Sitagliptin Phosphate (Januvia) 100 mg tablet Active 100 MG PO Daily April 16, 2024 12:00am Complies with drug therapy Super Stress B-Complex CR (2 sources) Super Stress B-C omplex CR Active triamcinolone acetonide 1 mg/ml topical [...] 09, 2021 1:00am Vitamin B Complex Tablet (5 sources) Start: 09-09-2021 take 1 tablet by mouth once daily Vitamin B Complex Tablet Active 1 TAB PO Daily September 09, 2021 1:00am Complies with drug therapy Start: 09-09-2021 take 1 tablet by mouth once da luann Vitamin B Complex Tablet Active 1 TAB PO Daily September 09, 2021 1:00am Start: 09-09-2021 take 1 tablet by mouth once da luann Vitamin B Complex Tablet Active 1 TAB PO Daily September 09, 2021 12:00am Vitamin C 1000 MG (2 sources) take 1 tablet by eirka th once daily Vitamin C 1000 MG 1 tablet Orally Once a day Active Vitamin E 400 UNIT (2 sources) take 1 capsule by mo uth once daily Vitamin E 400 UNIT 1 capsule Orally Once a day Active Completed/Discontinued Medications Medication Drug Class(es) Dates Sig (Normalized) Sig (Original) 8 hr acetaminophen 650 mg extended release oral tablet (9 sources) Start: 09-09-2021 End: 04-16-2024 Acetaminophen (Tylenol 8 Hour) 650 mg Tablet Extended Release Discontinued 1300 MG PO Twice daily September 09, 2021 1:00am April 16, 2024 10:11am ascorbic acid 226 mg / beta carotene 89153 unt / cuprous oxide 0.8 mg / dl-alpha tocopheryl acetate 200 unt / zinc oxide 34.8 mg oral capsule (1 source) Vitamin C Start: 09-09-2021 End: 04-16-2024 take 2 capsules by mouth once daily Vitamins A,C,V-Ovgx-Fsoswe (Preservision Areds) 14,320-226-200 gjwa-ug-cwge Capsule Discontinued 2 CAP PO Daily September 09, 2021 1:00am April 16, 2024 10:10am [id number] Ths-Pngh-Dqq-Asb-C (8 sources) Osmotic Laxative, Vitamin C Start: 04-16-2024 End: 06-20-2024 take 1 dose by mouth once daily [id number] Ayg-Vmxy-Ojz-Asb-C (Plenvu) 140-9-5.2 gram powder in packet, sequential Discontinued 140 ML PO .COMPLEX 1 1 April 15, 2024 11:00pm June 20, 2024 10:13am First dose at 4pm the day before colonoscopy, Second dose at 11pm the night before the colonoscopy Start: 04-16-2024 End: 06-20-2024 take 1 dose by mouth once daily [id number] Xmz-Kpmw-Iga-Asb-C (Plenvu) 140-9-5.2 gram powder in packet, sequential Discontinued 140 ML PO .COMPLEX 1 April 16, 2024 12:00am June 20, 2024 11:13am First dose at 4pm the day before colonoscopy, Second dose at 11pm the night before the colonoscopy Start: 04-16-2024 take 1 dose by mouth once daily [id number] Rnr-Xbtu-Irs-Asb-C (Plenvu) 140-9-5.2 gram powder in packet, sequential Active 140 ML PO .COMPLEX 1 April 16, 2024 12:00am First dose at 4pm the day before colonoscopy, Second dose at 11pm the night before the colonoscopy calcium carbonate 1500 mg oral tablet (9 sources) Start: 09-09-2021 End: 04-16-2024 take 1 [...] / glucosamine hydrochloride 250 mg oral tablet (9 sources) Start: 09-09-2021 End: 04-16-2024 take 1 tablet by mouth once daily Glucosamine-Chondroitin (Osteo Bi-Flex) 250-200 mg Tablet Discontinued 1 TAB PO Daily September 09, 2021 1:00am April 16, 2024 10:11am cinnamon bark 500 mg oral capsule (9 sources) Start: 09-09-2021 End: 04-16-2024 take 1 [...] complication, without long-term current use of insulin ([facility]) Take 1 tablet (5 mg) by mouth in the morning and 1 tablet (5 mg) in the evening. Take with meals. 180 tablet 3 01/09/2024 10/25/2024 Discontinued Start: 09-09-2021 End: 05-09-2024 take 10 mg by mouth once daily Glyburide Discontinued 10 MG PO Daily September 09, 2021 1:00am May 09, 2024 8:59am take 2 tablets by [facility] every twenty-four hours glyBURIDE 5 MG 2 tablets Orally Once a day Active lubiprostone 0.024 mg oral capsule (20 sources) Chloride Channel Activator Start: 10-15-2024 End: 04-19-2025 take 1 capsule by mouth twice daily Lubiprostone (Amitiza) 24 mcg capsule Discontinued 24 MCG PO Twice daily 180 October 15, 2024 1:00am April 19, 2025 10:10am Start: 10-15-2024 take 1 capsule by mo ut twice daily Lubiprostone (Amitiza) 24 mcg capsule Active 24 MCG PO Twice daily 180 October 15, 2024 1:00am Start: 10-15-2024 take 1 capsule by mo uth twice daily Lubiprostone (Amitiza) 24 mcg capsule Active 24 MCG PO Twice daily 180 October 15, 2024 12:00am Start: 07-24-2024 End: 10-15-2024 take 1 capsule by mouth twice daily Lubiprostone (Amitiza) 8 mcg capsule Discontinued 8 MCG PO Twice daily 180 90 July 24, 2024 2:35pm October 15, 2024 11:39am Start: 07-24-2024 End: 10-15-2024 take 1 capsule by mouth twice daily Lubiprostone (Amitiza) 8 mcg capsule Discontinued 8 MCG PO Twice daily 180 90 July 24, 2024 1:35pm October 15, 2024 10:39am Start: 07-24-2024 take 1 capsule by mo [facility] twice daily Lubiprostone (Amitiza) 8 mcg capsule Active 8 MCG PO Twice daily 180 90 July 24, 2024 1:35pm Start: 07-24-2024 End: 07-24-2024 take 1 capsule by mouth twice daily Lubiprostone (Amitiza) 8 mcg capsule Discontinued 8 MCG PO Twice daily 180 90 July 24, 2024 2:34pm July 24, 2024 2:36pm Start: 07-24-2024 End: 07-24-2024 take 1 capsule by mouth twice daily Lubiprostone (Amitiza) 8 mcg capsule Discontinued 8 MCG PO Twice daily 180 90 July 24, 2024 1:34pm July 24, 2024 1:36pm Start: 06-20-2024 End: 10-15-2024 take 1 capsule by mouth twice daily Lubiprostone (Amitiza) 8 mcg capsule Discontinued 8 MCG PO Twice daily 180 90 July 24, 2024 2:35pm October 15, 2024 11:39am Start: 06-20-2024 End: 07-24-2024 take 1 capsule [...] 1:35pm Start: 06-20-2024 take 1 capsule by [facility] twice daily Lubiprostone (Amitiza) 8 mcg capsule Active 8 MCG PO Twice daily 180 90 June 20, 2024 12:00am Magnesium (9 sources) Start: 09-09-2021 End: 04-16-2024 take 2 [...] 2021 1:00am melatonin 10 mg oral tablet (9 sources) Start: 09-09-2021 End: 04-16-2024 take 1 tablet by mouth once daily at bedtime Melatonin 10 mg Tablet Discontinued 10 MG PO Daily at bedtime September 09, 2021 1:00am April 16, 2024 10:11am psyllium 400 mg oral capsule (1 source) Start: 09-09-2021 End: 04-16-2024 Psyllium Husk 0.4 gram Capsule Discontinued 0.4 GM PO Daily September 09, [...] (Elderberry Zinc Vit C) 90-15 mg Lozenge (9 sources) Start: 09-09-2021 End: 04-16-2024 Vit C-Zn [...] 1:00am vitamin b12 0.1 mg oral tablet (16 sources) Vitamin B12 Start: 04-16-2024 End: 07-02-2024 take 1 tablet by mouth once daily Cyanocobalamin (Vitamin B-12) 100 mcg tablet Discontinued 100 MCG PO Daily April 16, 2024 12:00am May 09, 2024 8:51am vitamin e 100 unt oral capsule (9 sources) Start: 09-09-2021 End: 04-16-2024 take 1 capsule by mouth once daily Vitamin E 100 unit Capsule Discontinued 1 CAP PO Daily September 09, 2021 1:00am April 16, 2024 10:10am Start: 09-09-2021 take 1 capsule by mouth once d aily Vitamin E Active 1 CAP PO Daily September 09, 2021 1:00am Vitamins A,C,J-Grau-Xjqhko (Preservision Areds) 14,320-226-200 tmss-no-eyba Capsule (8 sources) Start: 09-09-2021 End: 04-16-2024 take 2 capsules by mouth once daily Vitamins A,C,U-Soua-Aefeyb (Preservision Areds) 14,320-226-200 wjam-oe-qjfu Capsule Discontinued 2 CAP PO Daily September 09, 2021 12:00am April 16, 2024 9:10am Start: 09-09-2021 End: 04-16-2024 take 2 capsules by mouth once daily Vitamins A,C,Z-Xsfg-Gqenla (Preservision Areds) 14,320-226-200 yxvx-ee-awth Capsule Discontinued 2 CAP PO Daily September 09, 2021 1:00am April 16, 2024 10:10am Start: 09-09-2021 take 2 capsules by m outh once daily Vitamins A,C,T-Hnfk-Qpbuca (Preservision Areds) 14,320-226-200 bjyq-ym-ebrk Capsule Active 2 CAP PO Daily September [...] Translations: [Psychophysiologic insomnia] Onset: 3 02-02-2023 Chronic Open wounds of extremities (2 sources) Tear of skin; Translations: [Laceration without foreign body, left lower leg, initial encounter] 07-02-2024 Episodic Osteoarthritis (20 sources) Osteoarthritis of knee; Translations: [Osteoarthritis of knee, unspecified] Onset: 3 Resolved: 3 02-02-2023 Chronic Osteoporosis (20 sources) Osteoporosis; Translations: [Age-related osteoporosis without current pathological fracture] Onset: 3 02-02-2023 Chronic Other aftercare (1 source) 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; Translations: [[employer] USE ORAL HYPOGLYCEMIC DX] Onset: 2 Episodic Other aftercare (1 source) Other long-term (current) drug therapy; Translations: [OTH [facility] CURRENT DRUG THERAPY] Onset: 2 Episodic Other [...] bowel syndrome] 04-16-2024 Chronic Other gastrointestinal disorders (6 sources) Diarrhea; Translations: [Diarrhea, unspecified] 10-15-2024 Episodic Other gastrointestinal disorders (8 sources) Diarrhea, unspecified; Translations: [Diarrhea] Onset: 1 Resolved: 1 Episodic Other gastrointestinal disorders (4 sources) Change in bowel habit; Translations: [Other symptoms involving digestive system] Onset: 1 04-16-2024 Episodic Other gastrointestinal disorders (9 sources) History of rectal bleeding; Translations: [Personal [...] in joint, shoulder region] 12-05-2024 Episodic Other upper respiratory disease (20 sources) Allergic rhinitis; Translations: [Other allergic rhinitis] Onset: 3 02-02-2023 Chronic Other upper respiratory infections (10 sources) Acute sinusitis; Translations: [Acute sinusitis, unspecified] 06-11-2024 Episodic Regional enteritis and ulcerative colitis (20 sources) Pseudopolyposis of colon; 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] Onset: 3 02-02-2023 Chronic Retinal detachments; defects; vascular occlusion; and retinopathy [...] Mood disorders Onset: 3 Resolved: 4 06-23-2023 Mycoses (20 sources) Onychomycosis due to dermatophyte ; Translations: [Tinea unguium] Onset: 3 01-19-2023 Episodic Other acquired deformities (20 sources) Spondylolisthesis; Translations: [...] 01-19-2023 Episodic Other skin disorders (20 sources) Nail deformity; Translations: [Other nail disorders] Onset: 3 01-19-2023 Episodic Other skin disorders [...] 1 Episodic Residual codes; unclassified (20 sources) Localized edema; Translations: [Localized edema] Onset: 3 01-19-2023 Episodic Residual codes; unclassified (20 sources) History [...] Test Name Value Interpretation Reference Range Facility US Thyroid [facility] [address] [address] Ultrasound Report Signed Patient: JAMES WEAVER MR#: [id number] : 1935 Acct:[id number] Age/Sex: 89 / F ADM Date: 05/01/25 Loc: US Attending Dr: Adonay Diop NP Ordering Physician: Adonay Diop NP Date of Service: 05/01/25 Procedure(s): US thyroid Accession Number(s): [id number] cc: CONRADO AMBRIZ ; Adonay Diop NP [place] [id number] Patient Name: JAMES WEAVER MRN: [id number] date: 1935 Sex: F Assigned Patient Location: US Current Patient Location: US Accession/Order Number: [id number] Exam Date: 05/01/2025 13:03 Report Date: 05/01/2025 13:59 At the request of: ADONAY DIOP NP Procedure: US thyroid Thyroid ultrasound Reason for exam: Thyroid nodule. Comparison: none Technique: Grayscale and color Doppler images of the thyroid gland were obtained. Findings: The right lobe measures 3.5 x 1.0 x 1.3 cm. Left lobe measures 3.8 x 2.0 x 1.9 cm. Isthmus measures 2.7 mm. The thyroid gland is heterogenous in echotexture without hyperemia on color Doppler imaging. A hypoechoic nodule is seen involving the mid aspect of the left lobe measuring 18 x 15 x 17 mm without microcalcifications. Additional smaller nodules are seen involving the right lobe largest measuring 4 x 3 x 2 mm involving the inferior pole. US/US thyroid Impression: Multinodular thyroid gland with a dominant nodule involving the mid aspect of the left lobe measuring 18 x 15 x 17 mm. FNA should BE considered. Impression dictated by: Hugo Centeno Jr., D.O. 05/01/2025 1:59 PM Dictation Location: [place] [address] Electronically authenticated by: [id number] Y Date: 05/01/2025 13:59 Dictated By: Hugo Centeno M.D. Signed By: 05/01/25 1401 DD/ 1359 TD/TT: Metal Ceiling Hanger: [facility] Radiology, Radiologwinston boyle MD - 05/01/[address] [address] Ultrasound Report Signed Patient: JAMES WEAVER MR#: [id number] : 1935 Acct:[id number] Age/Sex: 89 / F ADM Date: 05/01/25 Loc: US Attending Dr: Adonay Diop NP Ordering Physician: Adonay Diop NP Date of Service: 05/01/25 Procedure(s): US thyroid Accession Number(s): [id number] cc: CONRADO AMBRIZ ; Adonay Diop NP The [place] [id number] Patient Name: JAMES WEAVER MRN: [facility]:[id number] date: 1935 Sex: F Assigned Patient Location: US Current Patient Location: US Accession/Order Number: [id number] Exam Date: 05/01/2025 13:03 Report Date: 05/01/2025 13:59 At the request of: ADONAY DIOP NP Procedure: US thyroid Thyroid ultrasound Reason for exam: Thyroid nodule. Comparison: none Technique: Grayscale and color Doppler images of the thyroid gland were obtained. Findings: The right lobe measures 3.5 x 1.0 x 1.3 cm. Left lobe measures 3.8 x 2.0 x 1.9 cm. Isthmus measures 2.7 mm. The thyroid gland is heterogenous in echotexture without hyperemia on color Doppler imaging. A hypoechoic nodule is seen involving the mid aspect of the left lobe measuring 18 x 15 x 17 mm without microcalcifications. Additional smaller nodules are seen involving the right lobe largest measuring 4 x 3 x 2 mm involving the inferior pole. US/US thyroid Impression: Multinodular thyroid gland with a dominant nodule involving the mid aspect of the left lobe measuring 18 x 15 x 17 mm. FNA should BE considered. Impression dictated by: Hugo Centeno Jr., D.O. 05/01/2025 1:59 PM Dictation Location: [place] [address] Electronically authenticated by: [id number] Y Date: 05/01/2025 13:59 Dictated By: Hugo Centeno M.D. Signed By: 05/01/25 1401 DD/ 1359 TD/TT: Metal Ceiling Hanger: [facility] Radiology Study observation (narrative) [facility] US Thyroid glandOrdered By: Radiologist Radiology on 05-01-2025 [facility] Work Phone: CBC (INCLUDES DIFF/PLT)on Basophils (Bld) [#/Vol] 0.065 10*3/uL Normal 0-200 [facility] Comment on above: Performed By: #### 1 0231, 6399 #### [facility] of [address], [address] [place] [address] Interior Design Coordinator: Ji Fung MD Basophils/100 WBC (Bld) 0.6 % Normal [facility] Comment on above: Performed By: #### 1 0231, 6399 #### [facility] of [address], [address] [place] [address] Interior Design Coordinator: Ji Fung MD Eosinophils (Bld) [#/Vol] 0.076 10*3/uL Normal 15-500 [facility] Comment on above: Performed By: #### 1 0231, 6399 #### [facility] [place] [address] Interior Design Coordinator: Ji Fung MD Eosinophils/100 WBC (Bld) 0.7 % Normal [facility] Comment on above: Performed By: #### 1 0231, 6399 #### [facility] of [place] [address] Interior Design Coordinator: Ji Fung MD Erythrocyte distribution width (RBC) [Ratio] 15.6 % High 11.0-15.0 [facility] Comment on above: Performed By: #### 1 0231, 6399 #### [facility] [place] [address] Interior Design Coordinator: Ji Fung MD Hematocrit (Bld) [Volume fraction] 50.8 % High 35.0-45.0 [facility] Comment on above: Performed By: #### 1 023, 6399 #### [facility] of [place] [address] Interior Design Coordinator: Ji Fung MD Hemoglobin (Bld) [Mass/Vol] 16.2 g/dL High 11.7-15.5 [facility] Comment on above: Performed By: #### 1 023, 6399 #### [facility] of [place] [address] Interior Design Coordinator: Ji Fung MD Lymphocytes (Bld) [#/Vol] 2.441 10*3/uL Normal 850-3900 [facility] Comment on above: Performed By: #### 1 230, 6399 #### [facility] [place] [address] Interior Design Coordinator: Ji Fung MD Lymphocytes/100 WBC (Bld) 22.6 % Normal [facility] Comment on above: Performed By: #### 1 023, 6399 #### [facility] [place] [address] Interior Design Coordinator: Ji Fung MD MCH (RBC) [Entitic mass] 29.3 pg Normal 27.0-33.0 [facility] Comment on above: Performed By: #### 1 023, 6399 #### [facility] of [place] [address] Interior Design Coordinator: Ji Fung MD MCHC (RBC) [Mass/Vol] 31.9 [...] patient's clinical condition. Performed By: #### 1 0231, 6399 #### [facility] of [place] [address] Interior Design Coordinator: Ji Fung MD MCV (RBC) [Entitic vol] 91.9 fL Normal 80.0-100.0 [facility] Comment on above: Performed By: #### 1 0231, 6399 #### [facility] of [place] [address] Interior Design Coordinator: Ji Fung MD Monocytes (Bld) [#/Vol] 0.68 10*3/uL Normal 200-950 [facility] Comment on above: Performed By: #### 1 0231, 6399 #### [facility] of [place] [address] Interior Design Coordinator: Ji Fung MD Monocytes/100 WBC (Bld) 6.3 % Normal [facility] Comment on above: Performed By: #### 1 0231, 6399 #### [facility] of [place] [address] Interior Design Coordinator: Ji Fung MD Neutrophils (Bld) [#/Vol] 7.538 10*3/uL Normal 6861-8494 [facility] Comment on above: Performed By: #### 1 0231, 6399 #### [facility] of [place] [address] Interior Design Coordinator: Ji Fung MD Neutrophils/100 WBC (Bld) 69.8 % Normal [facility] Comment on above: Performed By: #### 1 0231, [id number] #### [facility] of [place] [address] Interior Design Coordinator: Ji Fung MD Platelet mean volume (Bld) [Entitic vol] 10.6 fL Normal 7.5-12.5 [facility] Comment on above: Performed By: #### 1 0231, 6399 #### [facility] of [place] [address] Interior Design Coordinator: Ji Fung MD Platelets (Bld) [#/Vol] 222 10*3/uL Normal 140-400 [facility] Comment on above: Performed By: #### 1 0231, 6399 #### [facility] of [address], [address] [place] [address] Interior Design Coordinator: Ji Fung MD RBC (Bld) [#/Vol] 5.53 10*6/uL High 3.80-5.10 [facility] Comment on above: Performed By: #### 1 0231, 6399 #### [facility] of [address], [address] [place] [address] Interior Design Coordinator: Ji Fung MD WBC (Bld) [#/Vol] 10.8 10*3/uL Normal 3.8-10.8 [facility] Comment on above: Performed By: #### 1 0231, 6399 #### [facility] of [address], [address] [place] [address] Interior Design Coordinator: Ji Fung MD [facility] METABOLIC PANE [facility] 02-05-2025 Albumin [Mass/Vol] 4.5 g/dL Normal 3.6-5.1 [facility] Comment on above: Order Comment: FASTI NG:NO FASTING: NO Performed By: #### 1 0231, 6399 #### [facility] of [address], [address] [place] [address] Interior Design Coordinator: Ji Fung MD Albumin/Globulin [Mass ratio] 1.9 {ratio} Normal 1.0-2.5 [facility] Comment on above: Order Comment: FASTI NG:NO FASTING: NO Performed By: #### 1 0231, 6399 #### [facility] of [address], [address] [place] [address] Interior Design Coordinator: Ji Fung MD ALP [Catalytic activity/Vol] 55 U/L Normal 37-153 [facility] Comment on above: Order Comment: FASTI NG:NO FASTING: NO Performed By: #### 1 0231, 6399 #### [facility] of [address], [address] [place] [address] Interior Design Coordinator: Ji Fung MD ALT [Catalytic activity/Vol] 19 U/L Normal 6-29 [facility] Comment on above: Order Comment: FASTI NG:NO FASTING: NO Performed By: #### 1 0231, 6399 #### [facility] [address], [address] [place] [address] Interior Design Coordinator: Ji Fung MD AST [Catalytic activity/Vol] 16 U/L Normal 10-35 [facility] Comment on above: Order Comment: FASTI NG:NO FASTING: NO Performed By: #### 1 0231, 6399 #### [facility] [address], [address] [place] [address] Interior Design Coordinator: Ji Fung MD Bilirubin [Mass/Vol] 0.5 mg/dL Normal 0.2-1.2 [facility] Comment on above: Order Comment: FASTI NG:NO FASTING: NO Performed By: #### 1 230, 6399 #### [facility] [address], [address] [place] [address] Interior Design Coordinator: Ji Fung MD BUN/CREATININE RATIO SEE NOTE: Normal 6-22 [facility] Comment on above: Order Comment: FASTI NG:NO FASTING: NO Result Comment: Not Reported: BUN and Creatinine are within reference range. Performed By: #### 1 0231, 6399 #### [facility] [address], [address] [place] [address] Interior Design Coordinator: Ji Fung MD Calcium [Mass/Vol] 9.4 mg/dL Normal 8.6-10.4 [facility] Comment on above: Order Comment: FASTI NG:NO FASTING: NO Performed By: #### 1 0231, 6399 #### [facility] [address], [address] [place] [address] Interior Design Coordinator: Ji Fung MD Chloride [Moles/Vol] 103 mmol/L Normal 98-110 [facility] Comment on above: Order Comment: FASTI NG:NO FASTING: NO Performed By: #### 1 0231, 6399 #### [facility] [address], [address] [place] [address] Interior Design Coordinator: Ji Fung MD CO2 [Moles/Vol] 26 mmol/L Normal 20-32 [facility] Comment on above: Order Comment: FASTI NG:NO FASTING: NO Performed By: #### 1 0231, 6399 #### [facility] [address], [address] [place] [address] Interior Design Coordinator: Ji Fung MD Creatinine [Mass/Vol] 0.71 mg/dL Normal 0.60-0.[address] [facility] Comment on above: Order Comment: FASTI NG:NO FASTING: NO Performed By: #### 1 0231, 6399 #### [facility] [place] [address] Interior Design Coordinator: Ji Fung MD GFR/1.73 sq M.predicted among non-blacks MDRD (S/P/Bld) [Vol rate/Area] 82 mL/min/{1.73_m2} Normal > OR = 60 [facility] Comment on above: Order Comment: FASTI NG:NO FASTING: NO Performed By: #### 1 0231, 6399 #### [facility] [place] [address] Interior Design Coordinator: Ji Fung MD Globulin (S) [Mass/Vol] 2.4 g/dL Normal 1.9-3.7 [facility] Comment on above: Order Comment: FASTI NG:NO FASTING: NO Performed By: #### 1 0231, 6399 #### [facility] [place] [address] Interior Design Coordinator: Ji Fung MD Glucose [Mass/Vol] 175 mg/dL High 65-99 [facility] Comment on above: Order Comment: FASTI NG:NO FASTING: NO Result Comment: Fasting reference interval For someone without known diabetes, a glucose value >125 mg/dL indicates that they may have diabetes and this should be confirmed with a follow-up test. Performed By: #### 1 0231, 6399 #### [facility] of [place] [address] [place] [address] Interior Design Coordinator: Ji Fung MD Potassium [Moles/Vol] 4.2 mmol/L Normal 3.5-5.[address] [facility] [address] [facility] Comment on above: Order Comment: FASTI NG:NO FASTING: NO Performed By: #### 1 0231, 6399 #### [facility] [place] [address] Interior Design Coordinator: Ji Fung MD Protein [Mass/Vol] 6.9 g/dL Normal 6.1-8.1 [facility] Comment on above: Order Comment: FASTI NG:NO FASTING: NO Performed By: #### 1 0231, 6399 #### [facility] [place] [address] Interior Design Coordinator: Ji Fung MD Sodium [Moles/Vol] 140 mmol/L Normal 135-146 [facility] Comment on above: Order Comment: FASTI NG:NO FASTING: NO Performed By: #### 1 0231, 6399 #### [facility] [place] [address] Interior Design Coordinator: Ji Fung MD Urea nitrogen [Mass/Vol] 15 mg/dL Normal 7-25 [facility] Comment on above: Order Comment: FASTI NG:NO FASTING: NO Performed By: #### 1 0231, 6399 #### [facility] [place] [address] Interior Design Coordinator: Ji Fung MD TSHon 02-05-2025 TSH Qn 1.18 m[IU]/L Normal 0.40-4.50 [facility] Comment on above: Performed By: #### 1 0231, 6399 #### [facility] [place] [address] Interior Design Coordinator: Ji Fung MD HbA1c (Bld) [Mass fraction]o n 02-04-2025 Interpretation and review of laboratory results Abnormal [facility] Laboratory - Hematology and Cell countson 02-04-2025 HbA1c (Bld) [Mass fraction] 7.9 % [facility] Urinalysis macro (dipstick) panel (U)on 02-04-2025 Bilirubin, UA Negative Negative - 4(70) +++ mg/dL [facility] Blood, UA Negative Negative - 50 Tony/mcL [facility] Clarity, UA Clear [facility] Color, UA Yellow [facility] Glucose, UA Negative Negative - 2000(110) ++++ mg/dL [facility] Interpretation and review of laboratory results Normal [facility] Ketones, UA Negative Negative - 160(16) ++++ mg/dL [facility] Leukocytes, UA Negative Negative - 500+++ Kristopher/mcL [facility] Nitrite, UA Negative Negative - Positive [facility] pH, UA 5 5 - 9 [facility] Protein, UA Negative Negative - 2000(20) ++++ mg/dL [facility] Spec Grav, UA 1 1 - 1.03 [facility] Urobilinogen, UA 0.2 0.2 - 12 mg/dL [facility] XR Shoulder - right 2 [...] shoulder arthritis with likely rotator cuff arthropathy. [facility] Radiology Study observation (narrative) [facility] Laboratory - Hematology and Cell countson 11-29-2024 HbA1c (Bld) [Mass fraction] 7.3 % [facility] No Panel Informationon 11-29 [facility] Basophils Auto (Bld) [#/Vol] Ordered By: Nayan Dominguez on 10-15-2024 Basophils (Bld) [#/Vol] Automated basophil count 0.0-0.2 [facility] Basophils/100 WBC Auto (Bld) Ordered By: Nayan Dominguez on 10-15-2024 Basophils/100 WBC (Bld) Automated basophil % . [facility] Complete Blood Count Auto Di ffon 10-15-2024 Basophils (Bld) [#/Vol] 0.1 10*3/uL Normal 0.0-0.2 [facility] Comment on above: Result Comment: PERF ORMED BY: [place] [address] PATHOLOGIST TRANSITIONAL CARE LIAISON BEATRIZ GILLESPIE M.D. Performed By: #### C BC #### [address] Basophils/100 WBC (Bld) 0.3 % Normal . [facility] Comment on above: Performed By: #### C BC #### [address] Eosinophils (Bld) [#/Vol] 0.1 10*3/uL Normal 0.0-0.45 [facility] Comment on above: Performed By: #### C BC #### [address] Eosinophils/100 WBC (Bld) 0.5 % Normal . [facility] Comment on above: Performed By: #### C BC #### [address] Erythrocyte distribution width (RBC) [Ratio] 15.1 % Normal 11.9-15.3 [facility] Comment on above: Performed By: #### C BC #### [address] Hematocrit (Bld) [Volume fraction] 45.9 % Normal 34.0-46.4 [facility] Comment on above: Performed By: #### C BC #### [address] Hemoglobin (Bld) [Mass/Vol] 15.3 g/dL Normal 11.8-15.4 [facility] Comment on above: Performed By: #### C BC #### [address] Lymphocytes (Bld) [#/Vol] 2.3 10*3/uL Normal 1.00-4.8 [facility] Comment on above: Performed By: #### C BC #### [address] Lymphocytes/100 WBC (Bld) 15.4 % Normal . [facility] Comment on above: Performed By: #### C BC #### [address] MCH (RBC) [Entitic mass] 28.9 pg Normal 24.7-34.3 [facility] Comment on above: Performed By: #### C BC #### [address] MCV (RBC) [Entitic vol] 86.5 fL Normal 80-100 T [facility] Comment on above: Performed By: #### C BC #### [address] Mean Corpuscular HGB Conc 33.4 g/dL Normal 32.0-35.0 [facility] Comment on above: Performed By: #### C BC #### [address] Monocytes (Bld) [#/Vol] 0.9 10*3/uL High 0.0-0.8 [facility] Comment on above: Performed By: #### C BC #### [address] Monocytes/100 WBC (Bld) 6.2 % Normal . [facility] Comment on above: Performed By: #### C BC #### [address] Neutrophils (Bld) [#/Vol] 11.9 10*3/uL High 1.8-7.7 [facility] Comment on above: Performed By: #### C BC #### [address] Neutrophils/100 WBC (Bld) 77.6 % Normal . [facility] Comment on above: Performed By: #### C BC #### [address] NRBC% 0.1 /100{WBC} Normal 0-0.5 [facility] Comment on above: Performed By: #### C BC #### [facility] [address] [place] [address] [place] Platelet mean volume (Bld) [Entitic vol] 8.8 fL Normal 6.3-10.7 [facility] Comment on above: Performed By: #### C BC #### [facility] [address] [place] [address] [place] Platelets (Bld) [#/Vol] 264 10*3/uL Normal 150-450 [facility] Comment on above: Performed By: #### C BC #### [facility] [address] [place] [address] [place] RBC (Bld) [#/Vol] 5.31 10*6/uL High 3.60-5.00 [facility] Comment on above: Performed By: #### C BC #### [facility] [address] [place] [address] [place] WBC (Bld) [#/Vol] 15.3 10*3/uL High 3.8-11.6 [facility] Comment on above: Performed By: #### C BC #### [facility] [address] [place] [address] [place] Eosinophils Auto (Bld) [#/Vo l]Ordered By: Nayan Dominguez on 10-15-2024 Eosinophils (Bld) [#/Vol] Automated eosinophil count 0.0-0.45 [facility] Eosinophils/100 WBC Auto (Bl d)Ordered By: Nayan Dominguez on 10-15-2024 Eosinophils/100 WBC (Bld) Automated eosinophil % . [facility] Erythrocyte distribution wid th Auto (RBC) [Ratio]Ordered By: Nayan Dominguez on 10-15-2024 Erythrocyte distribution width (RBC) [Ratio] Erythrocyte distribution width [Ratio] by Automated count 11.9-15.3 [facility] Hematocrit Auto (Bld) [Volum e fraction]Ordered By: Nayan Dominguez on 10-15-2024 Hematocrit (Bld) [Volume fraction] Hematocrit [Volume Fraction] of Blood by Automated count 34.0-46.4 [facility] Hemoglobin [Mass/volume] in BloodOrdered By: Nayan Dominguez on 10-15-2024 Hemoglobin (Bld) [Mass/Vol] Hemoglobin [Mass/volume] in Blood 11.8-15.4 [facility] Leukocytes [#/volume] correc heidy for nucleated erythrocytes in Blood by Automated counOrdered By: Nayan Dominguez on 10-15-2024 WBC corrected for nucl RBC Auto (Bld) [#/Vol] Leukocytes [#/volume] corrected for nucleated erythrocytes in Blood by Automated coun High 3.8-11.6 [facility] Lymphocytes Auto (Bld) [#/Vo l]Ordered By: Nayan Dominguez on 10-15-2024 Lymphocytes (Bld) [#/Vol] Lymphocytes [#/volume] in Blood by Automated count 1.00-4.8 [facility] Lymphocytes/100 WBC Auto (Bl d)Ordered By: Nayan Dominguez on 10-15-2024 Lymphocytes/100 WBC (Bld) Lymphocytes/100 leukocytes in Blood by Automated count . [facility] MCH Auto (RBC) [Entitic mass ]Ordered By: Nayan Dominguez on 10-15-2024 MCH (RBC) [Entitic mass] MCH [Entitic mass] by Automated count 24.7-34.3 [facility] MCHC Auto (RBC) [Mass/Vol]Or dered By: Nayan Dominguez on 10-15-2024 MCHC (RBC) [Mass/Vol] MCHC [Mass/volume] by Automated count 32.0-35.0 [facility] MCV Auto (RBC) [Entitic vol] Ordered By: Nayan Dominguez on 10-15-2024 MCV (RBC) [Entitic vol] MCV [Entitic vol ume] by Automated count 80-100 [facility] Monocytes Auto (Bld) [#/Vol] Ordered By: Nayan Dominguez on 10-15-2024 Monocytes (Bld) [#/Vol] Automated blood monocyte count High 0.0-0.8 [facility] Monocytes/100 WBC Auto (Bld) Ordered By: Nayan Dominguez on 10-15-2024 Monocytes/100 WBC (Bld) Automated monocyte % . [facility] Neutrophils Auto (Bld) [#/Vo l]Ordered By: Nayan Dominguez on 10-15-2024 Neutrophils (Bld) [#/Vol] Neutrophils [#/volume] in Blood by Automated count High 1.8-7.7 [facility] Neutrophils/100 WBC Auto (Bl d)Ordered By: Nayan Dominguez on 10-15-2024 Neutrophils/100 WBC (Bld) Automated neutrophil % . [facility] Nucleated erythrocytes [Pres ence] in Blood by Automated countOrdered By: Nayan Dominguez on 10-15-2024 Nucleated RBC Auto Ql (Bld) Nucleated erythrocytes [Presence] in Blood by Automated count 0-0.5 [facility] Platelet mean volume Auto (B ld) [Entitic vol]Ordered By: Nayan Dominguez on 10-15-2024 Platelet mean volume (Bld) [Entitic vol] Platelet mean volume [Entitic volume] in Blood by Automated count 6.3-10.7 [facility] Platelets Auto (Bld) [#/Vol] Ordered By: Nayan Dominguez on 10-15-2024 Platelets (Bld) [#/Vol] Platelets [#/vol ume] in Blood by Automated count 150-450 [facility] RBC Auto (Bld) [#/Vol]Ordere d By: Nayan Dominguez on 10-15-2024 RBC (Bld) [#/Vol] Erythrocytes [#/volu me] in Blood by Automated count High 3.60-5.00 [facility] WBC Auto (Bld) [#/Vol]Ordere d By: Nayan Dominguez on 10-15-2024 WBC (Bld) [#/Vol] Leukocytes [#/volume ] in Blood by Automated count High 3.8-11.6 [facility] X-ray reportOrdered By: Tino Urrutia on 10-15-2024 Study report [facility] [place] [address] XRay Report Signed Patient: James Weaver MR#: [id number] : 1935 Acct:[id number] Age/Sex: 89 / F ADM Date: 5 Loc: XD Room: Type: [facility] Attending Dr: Nayan Dominguez [employer] Copies to: Nayan Dominguez APRN~ Ordering Provider: [...] Edgar Urrutia M.D.10/15/2024 7:20 PM Dictation Location: [employer] Transcribed By: JAYCEE 10/15/241919 Dictated By: Edgar Urrutia DO 10/15/241919 Signed By: 10/15/241919 [facility] XR KUBon 10-15-2024 XR KUB [facility] [place] [address] XRay Report Signed Patient: James Weaver MR#: [id number] 19 : 1935 Acct:[id number] Age/Sex: 89 / F ADM Date: 10/15/24 Loc: XD Room: Type: [facility] Attending Dr: Nayan Dominguez [employer] Copies to: Nayan Dominguez APRN Ordering Provider: [...] Edgar Urrutia M.D.10/15/2024 7:20 PM Dictation Location: [employer] Transcribed By: [facility] 10/15/241919 Dictated By: Edgar Urrutia DO 10/15/241919 Signed By: 10/15/241919 Normal [facility] Urinalysis macro (dipstick) panel (U)on 08-31-2024 Bilirubin, UA Negative Negative - 4(70) +++ mg/dL [facility] Blood, UA Negative Negative - 50 Tony/mcL [facility] Glucose, UA 3+ Negative - 2000(110) ++++ mg/dL [facility] Ketones, UA Negative Negative - 160(16) ++++ mg/dL [facility] Leukocytes, UA Negative Negative - 500+++ Kristopher/mcL [facility] Nitrite, UA Negative Negative - Positive [facility] pH, UA 6 5 - 9 [facility] Protein, UA Negative Negative - 2000(20) ++++ mg/dL [facility] Spec Grav, UA 1.005 1 - 1.03 [facility] Urobilinogen, UA 0.2 0.2 - 12 mg/dL [facility] Laboratory - Hematology and Cell countson 06-11-2024 HbA1c (Bld) [Mass fraction] 7.1 % [facility] No Panel Informationon 06-11 [facility] Capillary blood glucose alexander urement by glucometer (mass/volume)Ordered By: Sadiq Barton on 05-23-2024 Glucose [Mass/Vol] 170 mg/dL Normal [facility] Comment on above: Random Glucose Refer ence Range is dependent on time and content of last meal. Glucose of more than 200 mg/dL in a nonstressed, ambulatory subject supports the diagnosis of Diabetes Mellitus. Result Comment: [facility] Glucose Reference Range is dependent on time and content of last meal. Glucose of more than 200 mg/dL in a nonstressed, ambulatory subject supports the diagnosis of Diabetes Mellitus. Performed By: #### G LULS #### Point of Care testing , Glucose Poct Glucometerson 0 05-23-2024 Commemt1 Glu2: Cleaned Meter Normal [facility] Comment on above: Result Comment: PERF ORMED BY: [facility] [address] [place] [address] PATHOLOGIST TRANSITIONAL CARE LIAISON DANIELLE HINDS M.D. Performed By: #### G LULS #### Point of Care testing , Stevan 05-23-2024 L Specimen: Received: 05/23/24 Status: ANTONINA Graves Num: [id number] Spec Type: Surgical Subm Dr: Sadiq Barton MD Tissues: A Colon Biopsy (ASCENDING POLYP) Procedures: HE/2, Gross/Micro L4 Age/ Patient Sex Location Account Attending Physician JamesCarlton M 88/F [id number] Sadiq Barton MD SPEC NUM: [id number] RECD: 05/23/24 STATUS: ANTONINA GRAVES NUM: [id number] MIESHA: 05/23/[address]: Sadiq Barton MD ENTERED: 05/23/[address] [facility] [address]: SPEC TYPE: Surgical DEPT: S ENTERED BY: [id number] RECV BY: [id number] ORDERED: HE/2, Gross/Micro L4 ORDERED: HE/2, Gross/Micro L4 Pathological Diagnosis Ascending colon polyp: Tubular adenoma. Clinical Information Rectal bleeding Gross Description The specimen is received in formalin with the patient's name and ascending polyp and consists of a single gamble portion of soft tissue measuring 0.6 cm in greatest dimension. The specimen is entirely submitted cassette A1. CPT Codes 88 305 Specimen: [id number] Received: 05/23/24 Status: ANTONINA Shinmichelle Num: [id number] Spec Type: Surgical Subm Dr: Sadiq Barton MD Tissues: A Colon Biopsy (ASCENDING POLYP) Procedures: HE/2, Gross/Micro L4 Patient: James Weaver [id number] (Continued) Signed (signature on file) Adrian Castorena MD 05/25/24 1027 Normal [facility] No Panel InformationOrdered By: Sadiq Barton on 05-23-2024 Bedside Glucose Comment Glu2: cleaned meter [facility] Activated partial thrombopla stin time (aPTT) in platelet poor plasma by coagulation aOrdered By: Fernando Diamond on 12-13-2022 aPTT Coag (PPP) [Time] 31.1 s 25.1-36.5 Fi [facility] Basophils Auto (Bld) [#/Vol] Ordered By: Fernando Diamond on 12-13-2022 Basophils (Bld) [#/Vol] 0.1 10*3/uL 0.0-0.2 [facility] Basophils/100 WBC Auto (Bld) Ordered By: Fernando Diamond on 12-13-2022 Basophils/100 WBC (Bld) 0.9 % . F [facility] Bilirubin Test strip Ql (U)O rdered By: Fernando Diamond on 12-13-2022 Bilirubin Ql (U) Negative Negative [facility] Calcium [Mass/volume] in Ser um or PlasmaOrdered By: Fernando Diamond on 12-13-2022 Calcium [Mass/Vol] 8.8 mg/dL 8.6-10.3 [facility] Carbon dioxide, total [Moles /volume] in Serum or PlasmaOrdered By: Fernando Diamond on 12-13-2022 CO2 [Moles/Vol] 28.3 mmol/L 21.0-31.0 [facility] Chloride [Moles/volume] in S perez or PlasmaOrdered By: Fernando Diamond on 12-13-2022 Chloride [Moles/Vol] 103 mmol/L 98-107 [facility] Color Auto (U)Ordered By: Andreea Diamond on 12-13-2022 Color (U) Yellow Yellow [facility] Creatinine [Mass/volume] in Serum or PlasmaOrdered By: Fernando Diamond on 12-13-2022 Creatinine [Mass/Vol] 0.77 mg/dL 0.60-1.20 [facility] Eosinophils Auto (Bld) [#/Vo l]Ordered By: Fernando Diamond on 12-13-2022 Eosinophils (Bld) [#/Vol] 0.0 10*3/uL 0.0-0.45 [facility] Eosinophils/100 WBC Auto (Bl d)Ordered By: Fernando Diamond on 12-13-2022 Eosinophils/100 WBC (Bld) 0.4 % . [facility] Erythrocyte distribution wid th Auto (RBC) [Ratio]Ordered By: Fernando Diamond on 12-13-2022 Erythrocyte distribution width (RBC) [Ratio] 15.3 % 11.9-15.3 [facility] Fecal occult blood detection by immunochemistryOrdered By: Fernando Diamond on 12-13-2022 Hemoglobin.gastrointest inal Ql (Stl) [facility] Glucose [Mass/volume] in Ser um or PlasmaOrdered By: Fernando Diamond on 12-13-2022 Glucose [Mass/Vol] 148 mg/dL 70-100 [facility] Comment on above: ADA recommended refe rence rangeRandom Glucose Reference Range is dependent on time and content of last meal. Glucose of more than 200 mg/dL in a nonstressed, ambulatory subject supports the diagnosis of Diabetes Mellitus. Hematocrit Auto (Bld) [Volum e fraction]Ordered By: Fernando Diamond on 12-13-2022 Hematocrit (Bld) [Volume fraction] 45.2 % 34.0-46.4 [facility] Hemoglobin [Mass/volume] in BloodOrdered By: Fernando Diamond on 12-13-2022 Hemoglobin (Bld) [Mass/Vol] 15.1 g/dL 11.8-15.4 [facility] Ketones Auto test strip (U) [Mass/Vol]Ordered By: Fernando Diamond on 12-13-2022 Ketones (U) [Mass/Vol] Negative Negative Fi [facility] Laboratory - CoagulationOrde red By: Fernando Diamond on 12-13-2022 PT Coag (PPP) [Time] 11.4 s 9.0-12.9 [facility] Leukocytes [#/volume] correc heidy for nucleated erythrocytes in Blood by Automated counOrdered By: Fernando Diamond on 12-13-2022 WBC corrected for nucl RBC Auto (Bld) [#/Vol] 11.0 10*3/uL 3.8-11.6 [facility] Lymphocytes Auto (Bld) [#/Vo l]Ordered By: Fernando Diamond on 12-13-2022 Lymphocytes (Bld) [#/Vol] 2.0 10*3/uL 1.00-4.8 [facility] Lymphocytes/100 WBC Auto (Bl d)Ordered By: Fernando Diamond on 12-13-2022 Lymphocytes/100 WBC (Bld) 18.3 % . [facility] MCH Auto (RBC) [Entitic mass ]Ordered By: Fernando Diamond on 12-13-2022 MCH (RBC) [Entitic mass] 28.7 pg 24.7-34.3 [facility] MCHC Auto (RBC) [Mass/Vol]Or dered By: Fernando Diamond on 12-13-2022 MCHC (RBC) [Mass/Vol] 33.4 g/dL 32.0-35.0 [facility] MCV Auto (RBC) [Entitic vol] Ordered By: Fernando Diamond on 12-13-2022 MCV (RBC) [Entitic vol] 85.9 fL 80-100 [facility] Monocyte distribution width [Entitic volume] in Blood by AutomatedOrdered By: Fernando Diamond on 12-13-2022 Monocyte distribution width Auto (Bld) [Entitic vol] 17.04 % 0.00-20.00 [facility] Monocytes Auto (Bld) [#/Vol] Ordered By: Fernando Diamond on 12-13-2022 Monocytes (Bld) [#/Vol] 0.7 10*3/uL 0.0-0.8 [facility] Monocytes/100 WBC Auto (Bld) Ordered By: Fernando Diamond on 12-13-2022 Monocytes/100 WBC (Bld) 6.0 % . [facility] Neutrophils Auto (Bld) [#/Vo l]Ordered By: Fernando Diamond on 12-13-2022 Neutrophils (Bld) [#/Vol] 8.1 10*3/uL 1.8-7.7 [facility] Neutrophils/100 WBC Auto (Bl d)Ordered By: Fernando Diamond on 12-13-2022 Neutrophils/100 WBC (Bld) 74.4 % . [facility] Nitrite Test strip Ql (U)Ord ered By: Fernando Diamond on 12-13-2022 Nitrite Ql (U) Negative Negative [facility] No Panel InformationOrdered By: Fernando Diamond on 12-13-2022 Estimated GFR (CKD-EPI) > 60.0 mL/Min [facility] Creatinine Clearance (Chem 43.59 [facility] Nucleated erythrocytes [Pres ence] in Blood by Automated countOrdered By: Fernando Diamond on 12-13-2022 Nucleated RBC Auto Ql (Bld) 0.1 /100{WBC} 0-0.5 [facility] Platelet mean volume Auto (B ld) [Entitic vol]Ordered By: Fernando Diamond on 12-13-2022 Platelet mean volume (Bld) [Entitic vol] 8.6 fL 6.3-10.7 [facility] Platelet poor plasma interna tional normalized ratio (INR) by coagulation assay (relatOrdered By: Fernando Diamond on 12-13-2022 INR Coag (PPP) [Relative time] 1.0 {INR} [facility] Comment on above: INR Therapeutic Rang [...] 12-13-2022 Platelets (Bld) [#/Vol] 276 10*3/uL 150-450 [facility] Potassium [Moles/volume] in Serum or PlasmaOrdered By: Fernando Diamond on 12-13-2022 Potassium [Moles/Vol] 3.8 mmol/L 3.5-5.1 [facility] Protein Auto test strip (U) [Mass/Vol]Ordered By: Fernando Diamond on 12-13-2022 Protein (U) [Mass/Vol] Negative Negative Fi [facility] RBC Auto (Bld) [#/Vol]Ordere d By: Fernando Diamond on 12-13-2022 RBC (Bld) [#/Vol] 5.26 10*6/uL 3.60-5.00 [facility] Serum or plasma anion gap de terminationOrdered By: Fernando Diamond on 12-13-2022 Anion gap [Moles/Vol] 12.5 mmol/L 6.0-15.0 [facility] Sodium [Moles/volume] in Ser um or PlasmaOrdered By: Fernando Diamond on 12-13-2022 Sodium [Moles/Vol] 140 mmol/L 136-145 [facility] Specific gravity Auto test s trip (U) [Rel density]Ordered By: Fernando Diamond on 12-13-2022 Specific gravity (U) [Rel density] 1.010 1.001-1.03 0 [facility] Urea nitrogen [Mass/volume] in Serum or PlasmaOrdered By: Fernando Diamond on 12-13-2022 Urea nitrogen [Mass/Vol] 17 mg/dL 7-25 [facility] Urine clarity by refractomet ry automatedOrdered By: Fernando Diamond on 12-13-2022 Clarity Refractometry automated (U) Clear Clear [facility] Urine glucose measurement by automated test strip (mass/volume)Ordered By: Fernando Diamond on 12-13-2022 Glucose Auto test strip (U) [Mass/Vol] Normal mg/dL Normal [facility] Urine hemoglobin detection b y automated test stripOrdered By: Fernando Diamond on 12-13-2022 Hemoglobin Auto test strip Ql (U) Negative Negative [facility] Urine leukocyte esterase det ection by automated test stripOrdered By: Fernando Diamond on 12-13-2022 Leukocyte esterase Auto test strip Ql (U) Negative Negative [facility] Urobilinogen Auto test strip (U) [Mass/Vol]Ordered By: Fernando Diamond on 12-13-2022 Urobilinogen (U) [Mass/Vol] Normal mg/dL Normal [facility] WBC Auto (Bld) [#/Vol]Ordere d By: Fernando Diamond on 12-13-2022 WBC (Bld) [#/Vol] 11.0 10*3/uL 3.8-11.6 [facility] pH Auto test strip (U)Ordere d By: Fernando Diamond on 12-13-2022 pH (U) 7.5 [pH] 5.0-9.0 [facility] CBC AUTO DIFFon 05-01-2022 BASO # 0.0 103/ul Normal 0.0-0.1 [facility] Comment on above: Performed By: #### C BC #### [facility] [address] [place] [address] Dr. Graeme Webster Basophils/100 WBC (Bld) 0.3 % Normal 0.2-2.0 [facility] Comment on above: Performed By: #### C BC #### [facility] [address] [place] [address] Dr. Graeme Webster EO # 0.3 103/ul Normal 0.0-0.7 [facility] Comment on above: Performed By: #### C BC #### [facility] [address] [place] [address] Dr. Graeme Webster Eosinophils/100 WBC (Bld) 2.5 % Normal 0.9-7.0 [facility] Comment on above: Performed By: #### C BC #### [facility] [address] [place] [address] Dr. Graeme Webster Erythrocyte distribution width (RBC) [Ratio] 15.2 % Critically high 11.0-15.0 [facility] Comment on above: Performed By: #### C BC #### [facility] [address] [place] [address] Dr. Graeme Webster Hematocrit (Bld) [Volume fraction] 34.9 % Critically low 36.0-48.0 [facility] Comment on above: Performed By: #### C BC #### [facility] [address] [place] [address] Dr. Graeme Webster Hemoglobin (Bld) [Mass/Vol] 11.1 g/dL Critically low 12.0-16.0 [facility] Comment on above: Performed By: #### C BC #### [facility] [address] [place] [address] Dr. Graeme Webster IG # 0.05 10e3/ul Critically high 0.00-0.03 [facility] Comment on above: Performed By: #### C BC #### [facility] [address] [place] [address] Dr. Graeme Webster IG % 0.5 % Normal 0.0-0.5 [facility] Comment on above: Performed By: #### C BC #### [facility] [address] [place] [address] Dr. Graeme Webster LYMPH # 1.1 103/ul Critically low 1.2-3.8 [facility] Comment on above: Performed By: #### C BC #### [facility] [address] [place] [address] Dr. Graeme Webster Lymphocytes/100 WBC (Bld) 10.1 % Critically low 20.5-60.0 [facility] Comment on above: Performed By: #### C BC #### [facility] [address] [place] [address] Dr. Graeme Webster MANUAL DIFF REQ NO Normal [facility] Comment on above: Performed By: #### C BC #### [facility] [address] [place] [address] Dr. Graeme Webster MCH (RBC) [Entitic mass] 28.0 pg Normal 26.7-34.0 [facility] Comment on above: Performed By: #### C BC #### [facility] [address] [address] [address] Graeme Webster MCHC (RBC) [Mass/Vol] 31.8 g/dL Normal 29.9-35.2 [facility] Comment on above: Performed By: #### C BC #### [facility] [address] [address] [address] Graeme Webster MCV (RBC) [Entitic vol] 87.9 fL Normal 81.0-99.0 [facility] Comment on above: Performed By: #### C BC #### [facility] [address] [address] [address] Graeme Webster MONO # 0.4 103/ul Normal 0.3-0.8 [facility] Comment on above: Performed By: #### C BC #### [facility] [address] [address] [address] Graeme Webster Monocytes/100 WBC (Bld) 3.8 % Normal 1.7-12.0 [facility] Comment on above: Performed By: #### C BC #### [facility] [address] [address] [address] Graeme Webster NEUT # 8.8 103/ul Critically high 1.4-6.5 [facility] Comment on above: Performed By: #### C BC #### [facility] [address] [address] [address] Graeme Webster Neutrophils/100 WBC (Bld) 82.8 % Critically high 43.0-75.0 [facility] Comment on above: Performed By: #### C BC #### [facility] [address] [address] [address] Graeme Webster Platelet mean volume (Bld) [Entitic vol] 10.9 fL Normal 9.5-13.5 [facility] Comment on above: Performed By: #### C BC #### [facility] [address] [address] [address] Graeme Webster PLT 171 103/ul Normal 150-450 [facility] Comment on above: Performed By: #### C BC #### [facility] [address] [address] [address] Graeme Webster RBC 3.97 106/ul Critically low 4.20-5.40 [facility] Comment on above: Performed By: #### C BC #### [facility] [address] [place] [address] Dr. Graeme Webster WBC 10.6 103/ul Normal 4.0-11.0 [facility] Comment on above: Performed By: #### C BC #### [facility] [address] [place] [address] Dr. Graeme Webster POINT OF CARE GLUCOSEon Glucose [Mass/Vol] 177 mg/dL Critically high 74-106 [facility] Comment on above: Performed By: #### C BC #### [facility] [address] [place] [address] Dr. Graeme Webster PROF 14(COMP METB)on 022 Albumin [Mass/Vol] 2.5 g/dL Critically low 3.4-5.0 [facility] Comment on above: Performed By: #### C BC #### [facility] [address] [place] [address] Dr. Graeme Webster Albumin/Globulin [Mass ratio] 0.8 {ratio} Normal [facility] Comment on above: Performed By: #### C BC #### [facility] [address] [place] [address] Dr. Graeme Webster ALP [Catalytic activity/Vol] 53 U/L Normal 46-116 [facility] Comment on above: Performed By: #### C BC #### [facility] [address] [place] [address] Dr. Graeme Webster ALT [Catalytic activity/Vol] 94 U/L Critically high 14-59 [facility] Comment on above: Performed By: #### C BC #### [facility] [address] [place] [address] Dr. Graeme Webster Anion gap [Moles/Vol] 12.4 mmol/L Normal [facility] Comment on above: Performed By: #### C BC #### [facility] [address] [address] [address] Graeme Webster AST [Catalytic activity/Vol] 56 U/L Critically high 15-37 [facility] Comment on above: Performed By: #### C BC #### [facility] [address] [address] [address] Graeme Webster Bilirubin [Mass/Vol] 0.4 mg/dL Normal 0.2-1.0 [facility] Comment on above: Performed By: #### C BC #### [facility] [address] [address] [address] Graeme Webster Calcium [Mass/Vol] 7.7 mg/dL Critically low 8.5-10.1 [facility] Comment on above: Performed By: #### C BC #### [facility] [address] [address] [address] Graeme Webster Chloride [Moles/Vol] 109 mmol/L Critically high 98-107 [facility] Comment on above: Performed By: #### C BC #### [facility] [address] [address] [address] Graeme Webster CO2 [Moles/Vol] 23.2 mmol/L Normal 21.0-32.0 [facility] Comment on above: Performed By: #### C BC #### [facility] [address] [address] [address] Graeme Webster Creatinine [Mass/Vol] 0.81 mg/dL Normal 0.55-1.02 [facility] Comment on above: Performed By: #### C BC #### [facility] [address] [address] [address] Graeme Webster EGFR-AF BURUNDIAN >60 Normal >=60 [facility] Comment on above: Performed By: #### C BC #### [facility] [address] [address] [address] Graeme Webster EGFR-NON AF BURUNDIAN >60 Normal >=60 [facility] Comment on above: Performed By: #### C BC #### [facility] [address] [address] [address] Graeme Webster Globulin (S) [Mass/Vol] 3.2 g/dL Normal [facility] Comment on above: Performed By: #### C BC #### [facility] [address] [place] [address] Dr. Graeme Webster Glucose [Mass/Vol] 168 mg/dL Critically high 74-106 [facility] Comment on above: Performed By: #### C BC #### [facility] [address] [place] [address] Dr. Graeme Webster Potassium [Moles/Vol] 3.6 mmol/L Normal 3.5-5.1 [facility] Comment on above: Performed By: #### C BC #### [facility] [address] [place] [address] Dr. Graeme Webster Protein [Mass/Vol] 5.7 g/dL Critically low 6.4-8.2 [facility] Comment on above: Performed By: #### C BC #### [facility] [address] [place] [address] Dr. Graeme Webster Sodium [Moles/Vol] 141 mmol/L Normal 136-145 [facility] Comment on above: Performed By: #### C BC #### [facility] [address] [place] [address] Dr. Graeme Webster Urea nitrogen [Mass/Vol] 16.0 mg/dL Normal 7.0-18.0 [facility] Comment on above: Performed By: #### C BC #### [facility] [address] [place] [address] Dr. Graeme Webster Urea nitrogen/Creatinine [Mass ratio] 19.8 mg/mg Normal [facility] Comment on above: Performed By: #### C BC #### [facility] [address] [place] [address] Dr. Graeme Webster BNPon 04-30-2022 Natriuretic peptide B (Bld) [Mass/Vol] 242.0 pg/mL Normal <=1,800.0 [facility] Comment on above: Performed By: #### C BC #### [facility] [address] [place] [address] Dr. Graeme Webster CARDIAC JORGE LUIS 3-6on 2 CK [Catalytic activity/Vol] 81 U/L Normal 26-192 [facility] Comment on above: Performed By: #### C BC #### [facility] [address] [place] [address] Dr. Graeme Webster CK.MB [Mass/Vol] 1.02 ng/mL Normal <=3.60 [facility] Comment on above: Performed By: #### C BC #### [facility] [address] [place] [address] Dr. Graeme Webster HSTROP 5.9 pg/mL Normal 4.0-51.3 [facility] Comment on above: Result Comment: CUT- OFF POINTS HAVE BEEN ESTABLISHED BASED ON THE FOURTH UNIVERSAL DEFINITIONS OF MYOCARDIAL INFARCTION. THE UPPER REFERENCE LIMIT (URL) OF TROPONIN, DEFINED THE 99TH PERCENTILE OF cTnI DISTRIBUTION IN A REFERENCE POPULATION, HAS BEEN CONFIRMED THE DECISION THRESHOLD FOR OK DIAGNOSIS. Performed By: #### C BC #### [facility] [address] [place] [address] Dr. Graeme Webster CBC AUTO DIFFon 04-30-2022 BASO # 0.1 103/ul Normal 0.0-0.1 [facility] Comment on above: Performed By: #### C BC #### [facility] [address] [place] [address] Dr. Graeme Webster Basophils/100 WBC (Bld) 0.4 % Normal 0.2-2.0 [facility] Comment on above: Performed By: #### C BC #### [facility] [address] [place] [address] Dr. Graeme Webster EO # 0.0 103/ul Normal 0.0-0.7 [facility] Comment on above: Performed By: #### C BC #### [facility] [address] [place] [address] Dr. Graeme Webster Eosinophils/100 WBC (Bld) 0.1 % Critically low 0.9-7.0 [facility] Comment on above: Performed By: #### C BC #### [facility] [address] [place] [address] Dr. Graeme Webster Erythrocyte distribution width (RBC) [Ratio] 14.7 % Normal 11.0-15.0 [facility] Comment on above: Performed By: #### C BC #### [facility] [address] [place] [address] Dr. Graeme Webster Hematocrit (Bld) [Volume fraction] 44.6 % Normal 36.0-48.0 [facility] Comment on above: Performed By: #### C BC #### [facility] [address] [place] [address] Dr. Graeme Webster Hemoglobin (Bld) [Mass/Vol] 14.3 g/dL Normal 12.0-16.0 [facility] Comment on above: Performed By: #### C BC #### [facility] [address] [place] [address] Dr. Graeme Webster IG # 0.67 10e3/ul Critically high 0.00-0.03 [facility] Comment on above: Performed By: #### C BC #### [facility] [address] [place] [address] Dr. Graeme Webster IG % 2.8 % Critically high 0.0-0.5 [facility] Comment on above: Performed By: #### C BC #### [facility] [address] [place] [address] Dr. Graeme Webster LYMPH # 0.5 103/ul Critically low 1.2-3.8 [facility] Comment on above: Performed By: #### C BC #### [facility] [address] [place] [address] Dr. Graeme Webster Lymphocytes/100 WBC (Bld) 1.9 % Critically low 20.5-60.0 [facility] Comment on above: Performed By: #### C BC #### [facility] [address] [place] [address] Dr. Graeme Webster MANUAL DIFF REQ NO Normal [facility] Comment on above: Performed By: #### C BC #### [facility] [address] [address] [address] Graeme Webster MCH (RBC) [Entitic mass] 28.1 pg Normal 26.7-34.0 [facility] Comment on above: Performed By: #### C BC #### [facility] [address] [place] [address] Dr. Graeme Webster MCHC (RBC) [Mass/Vol] 32.1 g/dL Normal 29.9-35.2 [facility] Comment on above: Performed By: #### C BC #### [facility] [address] [place] [address] Dr. Graeme Webster MCV (RBC) [Entitic vol] 87.6 fL Normal 81.0-99.0 [facility] Comment on above: Performed By: #### C BC #### [facility] [address] [place] [address] Dr. Graeme Webster MONO # 0.7 103/ul Normal 0.3-0.8 [facility] Comment on above: Performed By: #### C BC #### [facility] [address] [place] [address] Dr. Graeme Webster Monocytes/100 WBC (Bld) 3.0 % Normal 1.7-12.0 [facility] Comment on above: Performed By: #### C BC #### [facility] [address] [place] [address] Dr. Graeme Webster NEUT # 21.7 103/ul Critically high 1.4-6.5 [facility] Comment on above: Performed By: #### C BC #### [facility] [address] [place] [address] Dr. Graeme Webster Neutrophils/100 WBC (Bld) 91.8 % Critically high 43.0-75.0 [facility] Comment on above: Performed By: #### C BC #### [facility] [address] [place] [address] Dr. Graeme Webster Platelet mean volume (Bld) [Entitic vol] 10.0 fL Normal 9.5-13.5 [facility] Comment on above: Performed By: #### C BC #### [facility] [address] [place], [place] [address] Dr. Graeme Webster PLT 237 103/ul Normal 150-450 [facility] Comment on above: Performed By: #### C BC #### [facility] [address] [place], [place] [address] Dr. Graeme Webster RBC 5.09 106/ul Normal 4.20-5.40 [facility] Comment on above: Performed By: #### C BC #### [facility] [address] [place], [place] [address] Dr. Graeme Webster WBC 23.7 103/ul Critically high 4.0-11.0 [facility] Comment on above: Performed By: #### C BC #### [facility] [address] [place], [place] [address] Dr. Graeme Webster CTA CHEST WO W [...] DANTE LAMAS Date: 2022-04-30 13:55 Normal [facility] CULTURE BLOODon 04-30-2022 Microscopic examination of blood, culture Culture Observations: NO GROWTH AT 5 DAYS. Normal [facility] Comment on above: Performed By: #### B LDCX2 #### [facility] [address] [place] [address] Dr. Graeme Webster Microscopic examination of blood, culture Culture Observations: NO GROWTH AT 5 DAYS. Normal [facility] Comment on above: Performed By: #### L ACT #### [facility] [address] [place] [address] Dr. Graeme Webster Covid-19 PCR ([facility])on SARS-CoV-2 (COVID-19) RNA ELVIA+probe Ql (Unsp spec) Not detected Normal NOT DETECTED [facility] Comment on above: Result Comment: When diagnostic [...] for this test is supported by the [employer] T[employer] of [employer] and Human Service's declaration that [...] used). Performed By: #### L ACT #### [facility] [address] [place] [address] Dr. Graeme Webster D-DIMERon 04-30-2022 D-DIMER 2.04 mg/L FEU Critically high <=0.59 [facility] Comment on above: Performed By: #### L ACT #### [facility] [address] [place] [address] Dr. Graeme Webster D-DIMER COMMENTS SEE BELOW Normal [facility] Comment on above: Result Comment: Incr [...] hospitalization. Performed By: #### L ACT #### [facility] [address] [place] [address] Dr. Graeme Webster ER URINE PROFILEon 2 Bilirubin Ql (U) Negative Normal NEGATIVE [facility] Comment on above: Performed By: #### L ACT #### [facility] [address] [place] [address] Dr. Graeme Webster Clarity (U) CLEAR Normal CLEAR [facility] Comment on above: Performed By: #### L ACT #### [facility] [address] [place] [address] Dr. Graeme Webster Color (U) YELLOW Normal YELLOW [facility] Comment on above: Performed By: #### L ACT #### [facility] [address] [place] [address] Dr. Graeme Webster ERUMARNIED A micrscopic examina tion will be performed if indicated. Normal [facility] Comment on above: Performed By: #### L ACT #### [facility] [address] [place] [address] Dr. Graeme Webster Glucose Ql (U) 100 mg/dl Abnormal NEGATIVE [facility] Comment on above: Performed By: #### L ACT #### [facility] [address] [place] [address] Dr. Graeme Webster Hemoglobin Ql (U) Negative Normal NEGATIVE [facility] Comment on above: Performed By: #### L ACT #### [facility] [address] [place] [address] Dr. Graeme Webster Ketones Ql (U) 15 mg/dl Abnormal NEGATIVE [facility] Comment on above: Performed By: #### L ACT #### [facility] [address] [place] [address] Dr. Graeme Webster LEUKOCYTES Negative Normal NEGATIVE [facility] Comment on above: Performed By: #### L ACT #### [facility] [address] [place] [address] Dr. Graeme Webster Nitrite Ql (U) Negative Normal NEGATIVE [facility] Comment on above: Performed By: #### L ACT #### [facility] [address] [place] [address] Dr. Graeme Webster pH (U) 6.5 [pH] Normal 5-9 [facility] Comment on above: Performed By: #### L ACT #### [facility] [address] [place] [address] Dr. Graeme Webster SPEC GRAVITY 1.010 Normal 1.005-<=1. 025 [facility] Comment on above: Performed By: #### L ACT #### [facility] [address] [place] [address] Dr. Graeme Webster UA PROTEIN Negative Normal NEGATIVE/ TRACE [facility] Comment on above: Performed By: #### L ACT #### [facility] [address] [place] [address] Dr. Graeme Webster UR MICRO IND NOT INDICATED Normal [facility] Comment on above: Performed By: #### L ACT #### [facility] [address] [place] [address] Dr. Graeme Webster Urobilinogen Qn (U) 0.2 {Anabella'U}/dL Normal 0.2 - 1. 0 [facility] Comment on above: Performed By: #### L ACT #### [facility] [address] [place] [address] Dr. Graeme Webster LACTATE/LACTIC ACIDon 2021 Lactate [Moles/Vol] 3.9 mmol/L Critically high 0.4-1.9 [facility] Comment on above: Result Comment: repe ated Performed By: #### C BC #### [facility] [address] [address] [address] Graeme Wesbter Lactate [Moles/Vol] 2.8 mmol/L Critically high 0.4-1.9 [facility] Comment on above: Performed By: #### L ACT #### [facility] [address] [address] [address] Graeme Webster Lactate [Moles/Vol] 4.9 mmol/L Critically high 0.4-1.9 [facility] Comment on above: Performed By: #### L ACT #### [facility] [address] [address] [address] Graeme Webster Lactate [Moles/Vol] 3.5 mmol/L Critically high 0.4-1.9 [facility] Comment on above: Performed By: #### L ACT #### [facility] [address] [place] [address] Dr. Graeme Webster POINT OF CARE GLUCOSEon Glucose [Mass/Vol] 214 mg/dL Critically high [address] [place] [address] Comment on above: Performed By: #### P OCGLUC #### [facility] [address] [address] [address] Graeme Webster Glucose [Mass/Vol] 112 mg/dL Critically high [address] [place] [address] Comment on above: Performed By: #### C BC #### [facility] [address] [address] [address] Graeme Webster Glucose [Mass/Vol] 311 mg/dL Critically high [address] [place] [address] Comment on above: Performed By: #### L ACT #### [facility] [address] [address] [address] Graeme Webster Glucose [Mass/Vol] 199 mg/dL Critically high [address] [place] [address] Comment on above: Performed By: #### C BC #### [facility] [address] [address] [address] Graeme Webster PROF 14(COMP METB)on 022 Albumin [Mass/Vol] 3.5 g/dL Normal 3.4-5.0 [facility] Comment on above: Performed By: #### C BC #### [facility] [address] [address] [address] Graeme Webster Albumin/Globulin [Mass ratio] 1.0 {ratio} Normal [facility] Comment on above: Performed By: #### C BC #### [facility] [address] [place] [address] Dr. Graeme Webster ALP [Catalytic activity/Vol] 62 U/L Normal 46-116 [facility] Comment on above: Performed By: #### C BC #### [facility] [address] [address] [address] Graeme Webster ALT [Catalytic activity/Vol] 15 U/L Normal 14-59 [facility] Comment on above: Performed By: #### C BC #### [facility] [address] [place] [address] Dr. Graeme Webster Anion gap [Moles/Vol] 14.7 mmol/L Normal [facility] Comment on above: Performed By: #### C BC #### [facility] [address] [place] [address] Dr. Graeme Webster AST [Catalytic activity/Vol] 11 U/L Critically low 15-37 [facility] Comment on above: Performed By: #### C BC #### [facility] [address] [place] [address] Dr. Graeme Webster Bilirubin [Mass/Vol] 0.9 mg/dL Normal 0.2-1.0 [facility] Comment on above: Performed By: #### C BC #### [facility] [address] [place] [address] Dr. Graeme Webster Calcium [Mass/Vol] 8.5 mg/dL Normal 8.5-10.1 [facility] Comment on above: Performed By: #### C BC #### [facility] [address] [place] [address] Dr. Graeme Webster Chloride [Moles/Vol] 101 mmol/L Normal 98-107 [facility] Comment on above: Performed By: #### C BC #### [facility] [address] [address] [address] Graeme Webster CO2 [Moles/Vol] 24.9 mmol/L Normal 21.0-32.0 [facility] Comment on above: Performed By: #### C BC #### [facility] [address] [address] [address] Graeme Webster Creatinine [Mass/Vol] 1.02 mg/dL Normal 0.55-1.02 [facility] Comment on above: Performed By: #### C BC #### [facility] [address] [address] [address] Graeme Webster EGFR-AF BURUNDIAN >60 Normal >=60 [facility] Comment on above: Performed By: #### C BC #### [facility] [address] [place] [address] Dr. Graeme Webster EGFR-NON AF BURUNDIAN 52 mL/min/1.73m2 Critically low >=60 [facility] Comment on above: Performed By: #### C BC #### [facility] [address] [place] [address] Dr. Graeme Webster Globulin (S) [Mass/Vol] 3.5 g/dL Normal [facility] Comment on above: Performed By: #### C BC #### [facility] [address] [place] [address] Dr. Graeme Webster Glucose [Mass/Vol] 274 mg/dL Critically high 74-106 [facility] Comment on above: Performed By: #### C BC #### [facility] [address] [place] [address] Dr. Graeme Webster Potassium [Moles/Vol] 3.6 mmol/L Normal 3.5-5.1 [facility] Comment on above: Performed By: #### C BC #### [facility] [address] [place] [address] Dr. Graeme Webster Protein [Mass/Vol] 7.0 g/dL Normal 6.4-8.2 [facility] Comment on above: Performed By: #### C BC #### [facility] [address] [place] [address] Dr. Graeme Webster Sodium [Moles/Vol] 137 mmol/L Normal 136-145 [facility] Comment on above: Performed By: #### C BC #### [facility] [address] [address] [address] Graeme Webster Urea nitrogen [Mass/Vol] 14.0 mg/dL Normal 7.0-18.0 [facility] Comment on above: Performed By: #### C BC #### [facility] [address] [address] [address] Graeme Webster Urea nitrogen/Creatinine [Mass ratio] 13.7 mg/mg Normal [facility] Comment on above: Performed By: #### C BC #### [facility] [address] [address] [address] Graeme Webster TROPONIN, HIGH SENSITIVITYon 04-30-2022 HSTROP 7.4 pg/mL Normal 4.0-51.3 [facility] Comment on above: Result Comment: CUT- OFF POINTS HAVE BEEN ESTABLISHED BASED ON THE FOURTH UNIVERSAL DEFINITIONS OF MYOCARDIAL INFARCTION. THE UPPER REFERENCE LIMIT (URL) OF TROPONIN, DEFINED THE 99TH PERCENTILE OF cTnI DISTRIBUTION IN A REFERENCE POPULATION, HAS BEEN CONFIRMED THE DECISION THRESHOLD FOR OK DIAGNOSIS. Performed By: #### C BC #### [facility] [address] [place] [address] Dr. Graeme Webster US KIDNEYSon 04-30-2022 US [...] TREVOR RODRIGUEZ Date: 2022-04-30 16:47 Normal [facility] XR CHEST 1 Von 04-30-2022 XR CHEST 1 V EXAM: XR CHEST 1 V HISTORY: COUGH COMPARISON: None. TECHNIQUE: One view of the chest was obtained. FINDINGS: The cardiac silhouette is normal in size. Aortic atherosclerotic disease is seen. The lungs are clear. There is no significant pneumothorax or pleural effusion. No acute osseous abnormality is seen. [place] screws are seen within the right humeral head. IMPRESSION: 1. No acute cardiopulmonary abnormality. Electronically authenticated by: Abad RUTLEDGE Date: 2022-04-30 04:04 Normal [facility] Q - CULTURE,URINE,ROUTINEon 01-14-2022 CULTURE, URINE, ROUTINE SEE NOTE Abnormal N robbie [employer] Comment on above: Order Comment: [facility] performed at: [facility], [address] [place] [address], [address] [place] [address], [id number], Roll [employer] Man: Ji Fung MD [facility] Collection Date/Time: [id number] [facility] Results Received Date/Time: [facility] Reported Date/Time: Result Comment: CULT URE, URINE, ROUTINE Micro Number: [id number] Test Status: Final Specimen Source: Urine Specimen [...] [id number] #### [facility] [address] [place] [address] LACTOFERRIN FECAL QUANTon Lactoferrin, Fecal, Quant. <1.00 Normal 0.00-7.24 [facility] Comment on above: Result Comment: Re sults [...] (IBS). Performed By: #### C BC #### [facility] [address] [place] [address] Dr. Graeme Webster PANCREATIC ELASTASE FECALon 10-23-2021 Pancreatic Elastase, Fecal 172 ug Elast./g Critically low >200 [facility] Comment on above: Result Comment: Milagors re Pancreatic Insufficiency: <100 Moderate Pancreatic Insufficiency: 100 - 200 Normal: >200 Performed By: #### C BC #### [facility] [address] [place] [address] Dr. Graeme Webster PH, STOOLon 10-23-2021 pH, Stool 6.5 Critically low 7.0-7.5 [facility] Comment on above: Performed By: #### C BC #### [facility] [address] [place] [address] Dr. Graeme Webster CLOSTRIDIUM DIFFICILE PCRon 08-29-2021 C difficile Toxin Gene ELVIA Negative Normal Negative [facility] Comment on above: Performed By: #### C BC #### [facility] [address] [place] [address] Dr. Graeme Webster CULTURE STOOLon 08-26-2021 CULTURE STOOL Culture Observations : NO GROWTH SALMONELLA, SHIGELLA, YERSINIA, CAMPY, E.COLI 0157, OR STAPH AT 72 HRS Normal [facility] Comment on above: Performed By: #### S TOOLCX #### [facility] [address] [place] [address] Dr. Graeme Webster Patient Correspondenceon Patient Correspondence [id number]:12 [id number] Normal [facility] Ambulatory Clinical Summaryo n 05-29-2021 Ambulatory Clinical Summary {[id number] Normal [facility] General Surgery Office/Clini c Noteon 05-29-2021 [...] SARS-CoV-2 (COVID-19) mRNA-1273 vaccine 09/20/2020 Recorded Normal [facility] Comment on above: Result Comment: Elec tronically Signed By: NARENDRA CAMPO, Jessica Figueroa\Date and Time Signed: 05/29/21 10:50 EDT CBC AUTO DIFFon 05-28-2021 BASO # 0.1 103/ul Normal 0.0-0.1 [facility] Comment on above: Performed By: #### C BC #### [facility] [address] [place] [address] Dr. Graeme Webster Basophils/100 WBC (Bld) 0.8 % Normal 0.2-2.0 [facility] Comment on above: Performed By: #### C BC #### [facility] [address] [place] [address] Dr. Graeme Webster EO # 0.1 103/ul Normal 0.0-0.7 [facility] Comment on above: Performed By: #### C BC #### [facility] [address] [place] [address] Dr. Graeme Webster Eosinophils/100 WBC (Bld) 0.8 % Critically low 0.9-7.0 [facility] Comment on above: Performed By: #### C BC #### [facility] [address] [place] [address] Dr. Graeme Webster Erythrocyte distribution width (RBC) [Ratio] 14.6 % Normal 11.0-15.0 [facility] Comment on above: Performed By: #### C BC #### [facility] [address] [place] [address] Dr. Graeme Webster Hematocrit (Bld) [Volume fraction] 39.0 % Normal 36.0-48.0 [facility] Comment on above: Performed By: #### C BC #### [facility] [address] [place] [address] Dr. Graeme Webster Hemoglobin (Bld) [Mass/Vol] 12.6 g/dL Normal 12.0-16.0 [facility] Comment on above: Performed By: #### C BC #### [facility] [address] [place] [address] Dr. Graeme Webster IG # 0.08 10e3/ul Critically high 0.00-0.03 [facility] Comment on above: Performed By: #### C BC #### [facility] [address] [place] [address] Dr. Graeme Webster IG % 0.7 % Critically high 0.0-0.5 [facility] Comment on above: Performed By: #### C BC #### [facility] [address] [place] [address] Dr. Graeme Webster LYMPH # 2.8 103/ul Normal 1.2-3.8 [facility] Comment on above: Performed By: #### C BC #### [facility] [address] [place] [address] Dr. Graeme Webster Lymphocytes/100 WBC (Bld) 23.7 % Normal 20.5-60.0 [facility] Comment on above: Performed By: #### C BC #### [facility] [address] [place] [address] Dr. Graeem Webster MANUAL DIFF REQ NO Normal [facility] Comment on above: Performed By: #### C BC #### [facility] [address] [place] [address] Dr. Graeme Webster MCH (RBC) [Entitic mass] 28.9 pg Normal 26.7-34.0 [facility] Comment on above: Performed By: #### C BC #### [facility] [address] [address] [address] Graeme Webster MCHC (RBC) [Mass/Vol] 32.3 g/dL Normal 29.9-35.2 [facility] Comment on above: Performed By: #### C BC #### [facility] [address] [address] [address] Graeme Webster MCV (RBC) [Entitic vol] 89.4 fL Normal 81.0-99.0 [facility] Comment on above: Performed By: #### C BC #### [facility] [address] [address] [address] Graeme Webster MONO # 0.8 103/ul Normal 0.3-0.8 [facility] Comment on above: Performed By: #### C BC #### [facility] [address] [place] [address] Dr. Graeme Webster Monocytes/100 WBC (Bld) 6.8 % Normal 1.7-12.0 [facility] Comment on above: Performed By: #### C BC #### [facility] [address] [address] [address] Graeme Webster NEUT # 8.0 103/ul Critically high 1.4-6.5 [facility] Comment on above: Performed By: #### C BC #### [facility] [address] [address] [address] Graeme Webster Neutrophils/100 WBC (Bld) 67.2 % Normal 43.0-75.0 [facility] Comment on above: Performed By: #### C BC #### [facility] [address] [address] [address] Graeme Webster Platelet mean volume (Bld) [Entitic vol] 10.8 fL Normal 9.5-13.5 [facility] Comment on above: Performed By: #### C BC #### [facility] [address] [address] [address] Graeme Webster PLT 293 103/ul Normal 150-450 [facility] Comment on above: Performed By: #### C BC #### [facility] [address] [address] [address] Graeme Webster RBC 4.36 106/ul Normal 4.20-5.40 [facility] Comment on above: Performed By: #### C BC #### [facility] [address] [place] [address] Dr. Graeme Webster WBC 11.8 103/ul Critically high 4.0-11.0 [facility] Comment on above: Performed By: #### C BC #### [facility] [address] [address] [address] Graeme Webster CBC AUTO DIFFon 05-25-2021 BASO # 0.1 103/ul Normal 0.0-0.1 [facility] Comment on above: Performed By: #### C BC #### [facility] [address] [place] [address] Dr. Graeme Webster Basophils/100 WBC (Bld) 0.8 % Normal 0.2-2.0 [facility] Comment on above: Performed By: #### C BC #### [facility] [address] [place] [address] Dr. Graeme Webster EO # 0.1 103/ul Normal 0.0-0.7 [facility] Comment on above: Performed By: #### C BC #### [facility] [address] [place] [address] Dr. Graeme Webster Eosinophils/100 WBC (Bld) 1.1 % Normal 0.9-7.0 [facility] Comment on above: Performed By: #### C BC #### [facility] [address] [place] [address] Dr. Graeme Webster Erythrocyte distribution width (RBC) [Ratio] 14.6 % Normal 11.0-15.0 [facility] Comment on above: Performed By: #### C BC #### [facility] [address] [place] [address] Dr. Graeme Webster Hematocrit (Bld) [Volume fraction] 37.9 % Normal 36.0-48.0 [facility] Comment on above: Performed By: #### C BC #### [facility] [address] [place] [address] Dr. Graeme Webster Hemoglobin (Bld) [Mass/Vol] 11.9 g/dL Critically low 12.0-16.0 [facility] Comment on above: Result Comment: draw n as outpatient Performed By: #### C BC #### [facility] [address] [place] [address] Dr. Graeme Webster IG # 0.04 10e3/ul Critically high 0.00-0.03 [facility] Comment on above: Performed By: #### C BC #### [facility] [address] [place] [address] Dr. Graeme Webster IG % 0.4 % Normal 0.0-0.5 [facility] Comment on above: Performed By: #### C BC #### [facility] [address] [place] [address] Dr. Graeme Webster LYMPH # 2.7 103/ul Normal 1.2-3.8 [facility] Comment on above: Performed By: #### C BC #### [facility] [address] [place] [address] Dr. Graeme Webster Lymphocytes/100 WBC (Bld) 27.1 % Normal 20.5-60.0 [facility] Comment on above: Performed By: #### C BC #### [facility] [address] [place] [address] Dr. Graeme Webster MANUAL DIFF REQ NO Normal [facility] Comment on above: Performed By: #### C BC #### [facility] [address] [place] [address] Dr. Graeme Webster MCH (RBC) [Entitic mass] 28.3 pg Normal 26.7-34.0 [facility] Comment on above: Performed By: #### C BC #### [facility] [address] [place] [address] Dr. Graeme Webster MCHC (RBC) [Mass/Vol] 31.4 g/dL Normal 29.9-35.2 [facility] Comment on above: Performed By: #### C BC #### [facility] [address] [place] [address] Dr. Graeme Webster MCV (RBC) [Entitic vol] 90.0 fL Normal 81.0-99.0 [facility] Comment on above: Performed By: #### C BC #### [facility] [address] [place] [address] Dr. Graeme Webster MONO # 0.8 103/ul Normal 0.3-0.8 [facility] Comment on above: Performed By: #### C BC #### [facility] [address] [place] [address] Dr. Graeme Webster Monocytes/100 WBC (Bld) 7.9 % Normal 1.7-12.0 [facility] Comment on above: Performed By: #### C BC #### [facility] [address] [place] [address] Dr. Graeme Webster NEUT # 6.3 103/ul Normal 1.4-6.5 [facility] Comment on above: Performed By: #### C BC #### [facility] [address] [place] [address] Dr. Graeme Webster Neutrophils/100 WBC (Bld) 62.7 % Normal 43.0-75.0 [facility] Comment on above: Performed By: #### C BC #### [facility] [address] [place] [address] Dr. Graeme Webster Platelet mean volume (Bld) [Entitic vol] 11.0 fL Normal 9.5-13.5 [facility] Comment on above: Performed By: #### C BC #### [facility] [address] [place] [address] Dr. Graeme Webster PLT 239 103/ul Normal 150-450 [facility] Comment on above: Performed By: #### C BC #### [facility] [address] [place] [address] Dr. Graeme Webster RBC 4.21 106/ul Normal 4.20-5.40 [facility] Comment on above: Performed By: #### C BC #### [facility] [address] [place] [address] Dr. Graeme Webster WBC 10.0 103/ul Normal 4.0-11.0 [facility] Comment on above: Performed By: #### C BC #### [facility] [address] [place] [address] Dr. Graeme Webster Lab Reportson 05-25-2021 Lab Reports [id number] [id number] Normal [facility] CBC AUTO DIFFon 05-23-2021 BASO # 0.1 103/ul Normal 0.0-0.1 [facility] Comment on above: Performed By: #### C BC #### [facility] [address] [place] [address] Dr. Graeme Webster Basophils/100 WBC (Bld) 0.6 % Normal 0.2-2.0 [facility] Comment on above: Performed By: #### C BC #### [facility] [address] [place] [address] Dr. Graeme Webster EO # 0.1 103/ul Normal 0.0-0.7 [facility] Comment on above: Performed By: #### C BC #### [facility] [address] [place] [address] Dr. Graeme Webster Eosinophils/100 WBC (Bld) 0.6 % Critically low 0.9-7.0 [facility] Comment on above: Performed By: #### C BC #### [facility] [address] [place] [address] Dr. Graeme Webster Erythrocyte distribution width (RBC) [Ratio] 14.4 % Normal 11.0-15.0 [facility] Comment on above: Performed By: #### C BC #### [facility] [address] [place] [address] Dr. Graeme Webster Hematocrit (Bld) [Volume fraction] 43.8 % Normal 36.0-48.0 [facility] Comment on above: Performed By: #### C BC #### [facility] [address] [place] [address] Dr. Graeme Webster Hemoglobin (Bld) [Mass/Vol] 13.9 g/dL Normal 12.0-16.0 [facility] Comment on above: Performed By: #### C BC #### [facility] [address] [place] [address] Dr. Graeme Webster IG # 0.04 10e3/ul Critically high 0.00-0.03 [facility] Comment on above: Performed By: #### C BC #### [facility] [address] [place] [address] Dr. Graeme Webster IG % 0.4 % Normal 0.0-0.5 [facility] Comment on above: Performed By: #### C BC #### [facility] [address] [place] [address] Dr. Graeme Webster LYMPH # 2.3 103/ul Normal 1.2-3.8 [facility] Comment on above: Performed By: #### C BC #### [facility] [address] [place] [address] Dr. Graeme Webstre Lymphocytes/100 WBC (Bld) 22.8 % Normal 20.5-60.0 [facility] Comment on above: Performed By: #### C BC #### [facility] [address] [place] [address] Dr. Graeme Webster MANUAL DIFF REQ NO Normal [facility] Comment on above: Performed By: #### C BC #### [facility] [address] [place] [address] Dr. Graeme Webster MCH (RBC) [Entitic mass] 28.2 pg Normal 26.7-34.0 [facility] Comment on above: Performed By: #### C BC #### [facility] [address] [place] [address] Dr. Graeme Webster MCHC (RBC) [Mass/Vol] 31.7 g/dL Normal 29.9-35.2 [facility] Comment on above: Performed By: #### C BC #### [facility] [address] [place] [address] Dr. Graeme Webster MCV (RBC) [Entitic vol] 88.8 fL Normal 81.0-99.0 [facility] Comment on above: Performed By: #### C BC #### [facility] [address] [address] [address] Graeme Webster MONO # 0.7 103/ul Normal 0.3-0.8 [facility] Comment on above: Performed By: #### C BC #### [facility] [address] [address] [address] Graeme Webster Monocytes/100 WBC (Bld) 6.4 % Normal 1.7-12.0 [facility] Comment on above: Performed By: #### C BC #### [facility] [address] [address] [address] Graeme Webster NEUT # 7.0 103/ul Critically high 1.4-6.5 [facility] Comment on above: Performed By: #### C BC #### [facility] [address] [place] [address] Dr. Graeme Webster Neutrophils/100 WBC (Bld) 69.2 % Normal 43.0-75.0 [facility] Comment on above: Performed By: #### C BC #### [facility] [address] [place] [address] Dr. Graeme Webster Platelet mean volume (Bld) [Entitic vol] 10.7 fL Normal 9.5-13.5 [facility] Comment on above: Performed By: #### C BC #### [facility] [address] [place] [address] Dr. Graeme Webster PLT 232 103/ul Normal 150-450 [facility] Comment on above: Performed By: #### C BC #### [facility] [address] [place] [address] Dr. Graeme Webster RBC 4.93 106/ul Normal 4.20-5.40 [facility] Comment on above: Performed By: #### C BC #### [facility] [address] [place] [address] Dr. Graeme Webster WBC 10.1 103/ul Normal 4.0-11.0 [facility] Comment on above: Performed By: #### C BC #### [facility] [address] [address] [address] Graeme Webster OCC BLD IMMUNO SCREENon 04-30 OCCULT BLOOD Positive Abnormal NEGATIVE [facility] Comment on above: Performed By: #### C BC #### [facility] [address] [address] [address] Graeme Webster PROF CHEM 8 (BAS METB)on Anion gap [Moles/Vol] 12.9 mmol/L Normal [facility] Comment on above: Performed By: #### C BC #### [facility] [address] [address] [address] Graeme Webster Calcium [Mass/Vol] 8.8 mg/dL Normal 8.4-10.2 [facility] Comment on above: Performed By: #### C BC #### [facility] [address] [place] [address] Dr. Graeme Webster Chloride [Moles/Vol] 104 mmol/L Normal 98-107 [facility] Comment on above: Performed By: #### C BC #### [facility] [address] [place] [address] Dr. Graeme Webster CO2 [Moles/Vol] 27.6 mmol/L Normal 22.0-30.0 [facility] Comment on above: Performed By: #### C BC #### [facility] [address] [place] [address] Dr. Graeme Webster Creatinine [Mass/Vol] 0.70 mg/dL Normal 0.52-1.04 [facility] Comment on above: Performed By: #### C BC #### [facility] [address] [place] [address] Dr. Graeme Webster EGFR-AF BURUNDIAN >60 Normal >=60 [facility] Comment on above: Performed By: #### C BC #### [facility] [address] [place] [address] Dr. Graeme Webster EGFR-NON AF BURUNDIAN >60 Normal >=60 [facility] Comment on above: Performed By: #### C BC #### [facility] [address] [address] [address] Graeme Webster Glucose [Mass/Vol] 181 mg/dL Critically high 74-106 [facility] Comment on above: Performed By: #### C BC #### [facility] [address] [address] [address] Graeme Webster Potassium [Moles/Vol] 3.5 mmol/L Normal 3.4-5.0 [facility] Comment on above: Performed By: #### C BC #### [facility] [address] [address] [address] Graeme Webster Sodium [Moles/Vol] 141 mmol/L Normal 137-145 [facility] Comment on above: Performed By: #### C BC #### [facility] [address] [address] [address] Graeme Webster Urea nitrogen [Mass/Vol] 16.0 mg/dL Normal 7.0-17.0 [facility] Comment on above: Performed By: #### C BC #### [facility] [address] [address] [address] Graeme Webster Urea nitrogen/Creatinine [Mass ratio] 22.9 mg/mg Normal [facility] Comment on above: Performed By: #### C BC #### [facility] [address] [address] [address] Graeme Webster Pathology Noteon 05-22-2021 Pathology Note [id number]:12 7 Normal [facility] Outside Colonoscopyon 2020 Outside Colonoscopy [id number]:12 7 Normal [facility] POINT OF CARE GLUCOSEon 04-30 Glucose [Mass/Vol] 161 mg/dL Critically high 74-106 [facility] Comment on above: Performed By: #### P OCGLUC #### [facility] [address] [address] [address] Graeme Webster Lab Reportson 05-19-2021 Lab Reports [id number]:12 7 Normal [facility] Covid-19 PCR (CVDTBH)on 04-29 SARS-CoV-2 (COVID-19) RNA ELVIA+probe Ql (Unsp spec) Not detected Normal NOT DETECTED [facility] Comment on above: Result Comment: This test is not yet approved or cleared by the [place] FDA. When there are no FDA-approved or cleared tests available, and other criteria are met, FDA can make tests available under an emergency access mechanism called an Emergency Use Authorization (EUA). The EUA for this test is supported by the [place] of Health and Human Service's (HHS's) declaration [...] consistent with SARS-CoV-2. Performed By: #### C BC #### [facility] [address] [place] [address] Dr. Graeme Webster Consenton 04-17-2021 Consent [id number]:127 Normal [facility] Ambulatory Clinical Summaryo n 04-16-2021 Ambulatory Clinical Summary {[id number] Normal [facility] General Surgery Office/Clini c Noteon 04-16-2021 [...] SARS-CoV-2 (COVID-19) mRNA-1273 vaccine 09/20/2020 Recorded Normal [facility] Comment on above: Result Comment: Elec tronically Signed By: NARENDRA CAMPO, Jessica Figueroa\Date and Time Signed: 04/16/21 11:07 EDT Physician Referralon 021 Physician Referral [id number]:12 7 Normal [facility] Vital Signs Date Time Vital Sign Value Performing Clinician Facility 04-19-2025 09:39-0400 Body height 162.56 cm Conrado Ambriz II Work Phone: [facility] 04-19-2025 09:39-0400 Body mass index (BMI) [Ratio] 24.5 kg/m2 Conrado Ambriz II Work Phone: [facility] 04-19-2025 09:39-0400 Body weight 64.86 kg Conrado Ambriz II Work Phone: [facility] 02-04-2025 09:59-0400 Body height 162.6 cm Conrado Ambriz MD Work Phone: [facility] 02-04-2025 09:59-0400 Body mass index (BMI) [Ratio] 24.37 kg/m2 Conrado Ambriz MD Work Phone: [facility] 02-04-2025 09:59-0400 Body weight 64.41 kg Conrado Ambriz MD Work Phone: [facility] 02-04-2025 09:59-0400 Diastolic blood pressure 76 mm[Hg] Conrado Ambriz MD Work Phone: [facility] 02-04-2025 09:59-0400 Heart rate 87 /min Conrado Ambriz MD Work Phone: [facility] 02-04-2025 09:59-0400 Respiratory rate 17 /min Conrado Ambriz MD Work Phone: [facility] 02-04-2025 09:59-0400 SaO2% (BldA) [Mass fraction] 96 % Conrado Ambriz MD Work Phone: [facility] 02-04-2025 09:59-0400 Systolic blood pressure 138 mm[Hg] Conrado Ambriz MD Work Phone: [facility] 01-08-2025 15:03-0400 Body height 162.56 cm Conrado Ambriz II Work Phone: [facility] 11-29-2024 10:48-0400 Body height 162.6 cm Conrado Ambriz MD Work Phone: [facility] 11-29-2024 10:48-0400 Body mass index (BMI) [Ratio] 24.2 kg/m2 Conrado Ambriz MD Work Phone: [facility] 11-29-2024 10:48-0400 Body weight 63.96 kg Conrado Ambriz MD Work Phone: [facility] 11-29-2024 10:48-0400 Diastolic blood pressure 70 mm[Hg] Conrado Ambriz MD Work Phone: [facility] 11-29-2024 10:48-0400 Heart rate 79 /min Conrado Ambriz MD Work Phone: [facility] 11-29-2024 10:48-0400 SaO2% (BldA) [Mass fraction] 96 % Conrado Ambriz MD Work Phone: [facility] 11-29-2024 10:48-0400 Systolic blood pressure 132 mm[Hg] Conrado Ambriz MD Work Phone: [facility] 11-14-2024 13:53-0400 Body height 162.56 cm Conrado Ambriz II Work Phone: [facility] 11-14-2024 13:53-0400 Body mass index (BMI) [Ratio] 23.8 kg/m2 Conrado Ambriz II Work Phone: [facility] 11-14-2024 13:53-0400 Body weight 63.04 kg Conrado Ambriz II Work Phone: [facility] 11-14-2024 13:53-0400 Diastolic blood pressure 76 mm[Hg] Conrado Ambriz II Work Phone: [facility] 11-14-2024 13:53-0400 Heart rate 99 /min Conrado Ambriz II Work Phone: [facility] 11-14-2024 13:53-0400 Systolic blood pressure 128 mm[Hg] Conrado Ambriz II Work Phone: [facility] 10-25-2024 13:01-0500 Body height 162.6 cm 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 Work Phone: [facility] 10-25-2024 13:01-0500 Body mass index (BMI) [Ratio] 24.37 kg/m2 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 Work Phone: [facility] 10-25-2024 13:01-0500 Body weight 64.41 kg 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 Work Phone: [facility] 10-25-2024 13:01-0500 Diastolic blood pressure 70 mm[Hg] 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 Work Phone: [facility] 10-25-2024 13:01-0500 Heart rate 73 /min 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 Work Phone: [facility] 10-25-2024 13:01-0500 SaO2% (BldA) [Mass fraction] 97 % 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 Work Phone: [facility] 10-25-2024 13:01-0500 Systolic blood pressure 134 mm[Hg] 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 Work Phone: [facility] 10-03-2024 13:16-0500 Body height 162.56 cm [facility] 10-03-2024 13:16-0500 Body mass index (BMI) [Ratio] 23.9 kg/m2 [facility] 10-03-2024 13:16-0500 Body weight 63.2 kg [facility] 08-31-2024 10:42-0500 Body height 162.6 cm Conrado Ambriz MD Work Phone: [facility] 08-31-2024 10:42-0500 Body mass index (BMI) [Ratio] 24.37 kg/m2 Conrado Ambriz MD Work Phone: [facility] 08-31-2024 10:42-0500 Body weight 64.41 kg Conrado Ambriz MD Work Phone: [facility] 08-31-2024 10:42-0500 Diastolic blood pressure 72 mm[Hg] Conrado Ambriz MD Work Phone: [facility] 08-31-2024 10:42-0500 Heart rate 83 /min Conrado Ambriz MD Work Phone: [facility] 08-31-2024 10:42-0500 SaO2% (BldA) [Mass fraction] 97 % Conrado Ambriz MD Work Phone: [facility] 08-31-2024 10:42-0500 Systolic blood pressure 132 mm[Hg] Conrado Ambriz MD Work Phone: [facility] 08-01-2024 09:27-0500 Body height 162.6 cm Conrado Ambriz MD Work Phone: [facility] 08-01-2024 09:27-0500 Body mass index (BMI) [Ratio] 24.03 kg/m2 Conrado Ambriz MD Work Phone: [facility] 08-01-2024 09:27-0500 Body temperature 97 [degF] Conrado Ambriz MD Work Phone: [facility] 08-01-2024 09:27-0500 Body weight 63.5 kg Conrado Amrbiz MD Work Phone: [facility] 08-01-2024 09:27-0500 Diastolic blood pressure 62 mm[Hg] Conrado Ambriz MD Work Phone: [facility] 08-01-2024 09:27-0500 Heart rate 67 /min Conrado Ambriz MD Work Phone: [facility] 08-01-2024 09:27-0500 SaO2% (BldA) [Mass fraction] 98 % Conrado Ambriz MD Work Phone: [facility] 08-01-2024 09:27-0500 Systolic blood pressure 132 mm[Hg] Conrado Ambriz MD Work Phone: [facility] 07-24-2024 13:24-0500 Body height 162.56 cm [facility] 07-02-2024 14:16-0500 Body height 162.6 cm Analy Hemmer PA Work Phone: [facility] 07-02-2024 14:16-0500 Body mass index (BMI) [Ratio] 24.41 kg/m2 Analy Hemmer PA Work Phone: [facility] 07-02-2024 14:16-0500 Body weight 64.5 kg Analy Hemmer PA Work Phone: [facility] 07-02-2024 14:16-0500 Diastolic blood pressure 76 mm[Hg] Analy Hemmer PA Work Phone: [facility] 07-02-2024 14:16-0500 Heart rate 74 /min Analy Hemmer PA Work Phone: [facility] 07-02-2024 14:16-0500 Respiratory rate 16 /min Analy Hemmer PA Work Phone: [facility] 07-02-2024 14:16-0500 SaO2% (BldA) [Mass fraction] 95 % Analy Hemmer PA Work Phone: [facility] 07-02-2024 14:16-0500 Systolic blood pressure 148 mm[Hg] Analy Hemmer PA Work Phone: [facility] 06-20-2024 11:13-0400 Body height 162.56 cm II Conrado Ambriz Work Phone: [facility] 06-20-2024 11:13-0400 Body mass index (BMI) [Ratio] 23.8 kg/m2 II Conrado Ambriz Work Phone: [facility] 06-20-2024 11:13-0400 Body weight 63.04 kg II Conrado Ambriz Work Phone: [facility] 06-20-2024 11:13-0400 Diastolic blood pressure 68 mm[Hg] II Conrado Ambriz Work Phone: [facility] 06-20-2024 11:13-0400 Heart rate 69 /min II Conrado Ambriz Work Phone: [facility] 06-20-2024 11:13-0400 Systolic blood pressure 158 mm[Hg] II Conrado Ambriz Work Phone: [facility] 06-11-2024 11:08-0400 Body height 162.6 cm Conrado Ambriz MD Work Phone: [facility] 06-11-2024 11:08-0400 Body mass index (BMI) [Ratio] 24.03 kg/m2 Conrado Ambriz MD Work Phone: [facility] 06-11-2024 11:08-0400 Body weight 63.5 kg Conrado Ambriz MD Work Phone: [facility] 06-11-2024 11:08-0400 Diastolic blood pressure 76 mm[Hg] Conrado Ambriz MD Work Phone: [facility] 06-11-2024 11:08-0400 Heart rate 75 /min Conrado Ambriz MD Work Phone: [facility] 06-11-2024 11:08-0400 SaO2% (BldA) [Mass fraction] 96 % Conrado Ambriz MD Work Phone: [facility] 06-11-2024 11:08-0400 Systolic blood pressure 128 mm[Hg] Conrado Ambriz MD Work Phone: [facility] 05-23-2024 10:00-0400 Diastolic blood pressure 76 mm[Hg] II Conrado Ambriz Work Phone: [facility] 05-23-2024 10:00-0400 Heart rate 71 /min II Conrado Ambriz Work Phone: [facility] 05-23-2024 10:00-0400 Respiratory rate 16 /min II Conrado Ambriz Work Phone: [facility] 05-23-2024 10:00-0400 SaO2% (BldA) [Mass fraction] 98 % II Conrado Ambriz Work Phone: [facility] 05-23-2024 10:00-0400 Systolic blood pressure 136 mm[Hg] II Conrado Ambriz Work Phone: [facility] 05-23-2024 08:50-0400 Body height 162.56 cm II Conrado Ambriz Work Phone: [facility] 05-23-2024 08:50-0400 Body weight 54.43 kg II Conrado Ambriz Work Phone: [facility] 04-16-2024 10:04-0400 Body height 162.56 cm [facility] 04-16-2024 10:04-0400 Body mass index (BMI) [Ratio] 23.8 kg/m2 [facility] 04-16-2024 10:04-0400 Body weight 63.04 kg [facility] 12-13-2022 11:47-0400 Diastolic blood pressure 76 mm[Hg] MD Fernando Diamond Work Phone: [facility] 12-13-2022 11:47-0400 Heart rate 71 /min MD Fernando Diamond Work Phone: [facility] 12-13-2022 11:47-0400 Respiratory rate 18 /min MD Fernando Diamond Work Phone: [facility] 12-13-2022 11:47-0400 SaO2% (BldA) [Mass fraction] 96 % MD Fernando Diamond Work Phone: [facility] 12-13-2022 11:47-0400 Systolic blood pressure 142 mm[Hg] MD Fernando Diamond Work Phone: [facility] 12-13-2022 11:02-0400 Body height 162.56 cm MD Fernando Diamond Work Phone: [facility] 12-13-2022 11:02-0400 Body temperature 97.4 [degF] MD Fernando Diamond Work Phone: [facility] 12-13-2022 11:02-0400 Body weight 64.1 kg MD Fernando Diamond Work Phone: [facility] 08-19-2021 15:00-0500 Body weight 62.6 kg Sadiq Barton Other [facility] [employer] Other Encounters Encounter Date Encounter Type Care Provider Facility Start: 05-01-2025 End: 05-01-2025 Clinisync Result Encounter 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 Work Phone: [facility] Unsolicited Start: 05-01-2025 End: 05-01-2025 Clinisync Result Encounter 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 Work Phone: [facility] Unsolicited Start: 04-25-2025 End: 04-25-2025 Bamboo flowsheet 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 Work Phone: [facility] Start: 04-25-2025 End: 04-25-2025 Bamboo flowsheet 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 Work Phone: [facility] Start: 04-25-2025 End: 04-25-2025 ambulatory ADONAY DIOP Not Available Start: 04-19-2025 End: 04-19-2025 ambulatory Conrado Ambriz II Work Phone: [facility] Work Phone: Start: 04-19-2025 End: 04-19-2025 Patient encounter procedure Nayan Mahmood [facility] Work Phone: Start: 04-18-2025 End: 04-18-2025 Bamboo flowsheet 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 Work Phone: [facility] Start: 04-18-2025 End: 04-18-2025 Bamboo flowsheet 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 Work Phone: [facility] Start: 04-18-2025 End: 04-18-2025 ambulatory ADONAY DIOP Not Available Start: 04-05-2025 End: 04-05-2025 Bamboo flowsheet Prem Morales DPM Work Phone: [facility] Start: 04-05-2025 End: 04-05-2025 Bamboo flowsheet Prem Morales DPM Work Phone: [facility] Start: 04-05-2025 End: 04-05-2025 Patient encounter procedure Prem Moraels DPM Work Phone: [facility] Comment on above: Onychomycosis; Nail deformity; Type 2 diabetes mellitus with other neurologic complication, 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 long-term insulin use (HCC); Localized edema Start: 04-05-2025 End: 04-05-2025 ambulatory PREM MORALES Not Available Start: 02-04-2025 End: 02-04-2025 Bamboo flowsheet Conrado Ambriz MD Work Phone: [facility] Start: 02-04-2025 End: 02-04-2025 Bamboo flowsheet Conrado Ambriz MD Work Phone: [facility] Start: 02-04-2025 End: 02-04-2025 Office outpatient visit 25 minutes Conrado Ambriz MD Work Phone: [facility] Comment on above: Type 2 diabetes philip itus with other neurologic complication, without long-term current use of insulin (Primary Dx); Acute non-recurrent frontal sinusitis; Mixed hyperlipidemia (CMS/HCC); Acquired hypothyroidism (CMS/HCC); Type 2 diabetes mellitus with peripheral neuropathy (CMS/HCC) Start: 02-04-2025 End: 02-04-2025 ambulatory CONRADO AMBRIZ Not Available Start: 01-08-2025 End: 01-08-2025 ambulatory Conrado Ambriz II Work Phone: [facility] Work Phone: Start: 01-08-2025 End: 01-08-2025 Patient encounter procedure Conrado Ambriz II Work Phone: [facility] Work Phone: Start: 01-08-2025 End: 01-08-2025 Bamboo flowsheet Prem Morales DPM Work Phone: [facility] Start: 01-08-2025 End: 01-08-2025 Bamboo flowsheet Prem Morales DPM Work Phone: [facility] Start: 01-08-2025 End: 01-08-2025 Patient encounter procedure Prem Morales DPM Work Phone: [facility] Comment on above: Type 2 diabetes philip itus with other neurologic complication, 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 long-term insulin use ([facility]); Onychomycosis; Nail deformity; Pain around toenail, left foot; Localized edema Start: 01-08-2025 End: 01-08-2025 ambulatory PREM MORALES Not Available Start: 12-18-2024 End: 12-19-2024 Refill Conrado Ambriz MD Work Phone: [facility] Comment on above: Benign essential hyp ertension ([facility]/HCC); Acquired hypothyroidism ([facility]); Degenerative disc disease, lumbar Start: 12-06-2024 End: 12-06-2024 Bamboo flowsheet Erasmo JETT Work Phone: [facility] Start: 12-06-2024 End: 12-06-2024 Bamboo flowsheet Erasmo JETT Work Phone: [facility] Start: 12-06-2024 End: 12-06-2024 Office outpatient visit 15 minutes Erasmo JETT Work Phone: [facility] Comment on above: Acute pain of [...] 11-14-2024 ambulatory Conrado Ambriz II Work Phone: [facility] Work Phone: Start: 11-14-2024 End: 11-14-2024 Patient encounter procedure [facility]ado Ambriz II [facility] Work Phone: Start: 10-25-2024 End: 10-25-2024 Bamboo flowsheet 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 Work Phone: [facility] Start: 10-25-2024 End: 10-25-2024 Bamboo flowsheet 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 Work Phone: [facility] Start: 10-25-2024 End: 10-25-2024 Office outpatient visit 25 minutes 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 Work Phone: [facility] Comment on above: Encounter for diabet ic [...] Bamboo flowsheet Prem Morales DPM Work Phone: [facility] Start: 10-24-2024 End: 10-24-2024 Bamboo flowsheet Prem Morales DPM Work Phone: [facility] Start: 10-24-2024 End: 10-24-2024 Patient encounter procedure Prem Morales DPM Work Phone: [facility] Comment on above: Ingrown toenail of b oth feet (Primary Dx); Onychomycosis; Pain around toenail, left foot; Pain around toenail, right foot; Type 2 diabetes mellitus with other neurologic complication, 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 long-term insulin use (CMS/HCC); Localized edema; Nail deformity Start: 10-24-2024 End: 10-24-2024 ambulatory PREM MORALES Not Available Start: 10-15-2024 End: 10-15-2024 Patient encounter procedure Conrado Ambriz II Work Phone: [facility] Work Phone: Start: 10-15-2024 End: 10-15-2024 ambulatory Conrado Ambriz Facility:[facility] Start: 10-03-2024 End: 10-03-2024 ambulatory [facility] Work Phone: Start: 10-03-2024 End: 10-03-2024 Patient encounter procedure [facility] Work Phone: Start: 08-31-2024 End: 08-31-2024 Bamboo flowsheet Conrado Ambriz MD Work Phone: [facility] Start: 08-31-2024 End: 08-31-2024 Bamboo flowsheet Conrado Ambriz MD Work Phone: [facility] Start: 08-31-2024 End: 08-31-2024 ambulatory CONRADO AMBRIZ Not Available Start: 08-31-2024 End: 08-31-2024 Office outpatient visit 25 minutes Conrado Ambriz MD Work Phone: [facility] Comment on above: Type 2 diabetes philip itus with other neurologic complication, without long-term current use of insulin ([facility]) (Primary Dx); Gastroesophageal reflux disease, 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 esophagitis present; Mixed stress and urge urinary incontinence Start: 08-01-2024 End: 08-01-2024 Bamboo flowsheet Conrado Ambriz MD Work Phone: [facility] Start: 08-01-2024 End: 08-01-2024 Bamboo flowsheet Conrado Ambriz MD Work Phone: [...] Available Start: 07-24-2024 End: 07-24-2024 ambulatory PREM MORALES Not Available Start: 07-24-2024 End: 07-24-2024 Bamboo flowsheet Prem Morales DPM Work Phone: [facility] Start: 07-24-2024 End: 07-24-2024 Bamboo flowsheet Prem Morales DPM Work Phone: [facility] Start: 07-24-2024 End: 07-24-2024 Patient encounter procedure [facility] Work Phone: Start: 07-24-2024 End: 07-24-2024 Patient encounter procedure Prem Morales DPM Work Phone: [facility] Comment on above: Onychomycosis (Prima ry Dx); Pain around toenail, left foot; Type 2 diabetes mellitus with other neurologic complication, 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); Localized edema Start: 07-02-2024 [...] (CMS/HCC); Spondylolisthesis, unspecified spinal region; Acquired hypothyroidism (CMS/HCC); Type 2 diabetes mellitus with hyperglycemia, without long-term current use of insulin (CMS/HCC); Atopic dermatitis, unspecified type; Balance problem; Tinnitus of both ears; Sensorineural hearing loss (SNHL), bilateral; Risk for falls; Psoriasis, unspecified (CMS/HCC); Pre-ulcerative calluses; Other allergic rhinitis; Mixed hyperlipidemia (CMS/HCC); Macular degeneration of both eyes, unspecified type; Localized edema; Impaired ambulation; History of partial colectomy; Ganglion cyst; Skin tear of lower leg without complication, left, initial encounter; Exudative age-related macular degeneration, bilateral, with inactive choroidal neovascularization (CMS/HCC); Vitreous hemorrhage, bilateral (CMS/HCC) Start: 07-02-2024 End: 07-02-2024 ambulatory ANALY HAMMOND Not Available Start: 06-20-2024 End: 06-20-2024 ambulatory II Conrado Ambriz Work Phone: [facility] Work Phone: Start: 06-20-2024 End: 06-20-2024 Patient encounter procedure II Conrado Ambriz Work Phone: [facility] Work Phone: Start: 06-11-2024 End: [...] Available Start: 05-23-2024 Non-patient / Non-visit II oWn Ambriz Work Phone: [facility] Work Phone: Start: 05-23-2024 End: 05-23-2024 Admission to same day surgery center II Conrado Ambriz Work Phone: [facility] Work Phone: Start: 05-23-2024 End: 05-23-2024 ambulatory II Conrado Ambriz Work Phone: [facility] Work Phone: Start: 04-20-2024 End: 04-20-2024 Bamboo flowsheet Prem Morales DPM Work Phone: [facility] Start: 04-20-2024 End: 04-20-2024 Bamboo flowsheet Prem Morales DPM Work Phone: [facility] Start: 04-20-2024 End: 04-20-2024 Patient encounter procedure Prem Morales DPM Work Phone: [facility] Comment on above: Onychomycosis (Prima ry Dx); Pain around toenail, left foot; Nail deformity; Type 2 diabetes mellitus with other neurologic complication, 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 ([facility]); Localized edema; Ingrown toenail Start: 04-16-2024 End: 04-16-2024 ambulatory [facility] Work Phone: Start: 04-16-2024 End: 04-16-2024 Patient encounter procedure [facility] Work Phone: Start: 12-13-2022 End: 12-13-2022 Emergency department patient visit MD Fernando Diamond Work Phone: [facility] Work Phone: Start: 04-30-2022 End: 05-01-2022 Evaluation and management of inpatient DR CONRADO AMBRIZ Facility:H1 Start: 08-26-2021 End: 08-26-2021 ambulatory SADIQ BARTON Facility:[facility]1 Start: 08-19-2021 End: 08-19-2021 ambulatory Dante Renee Other [facility] Other Start: 08-19-2021 [facility] visit new patient Sadiq Barton [facility] Start: 08-19-2021 Telephone encounter Dante Renee [facility] Start: 05-31-2021 Encounter for other preprocedural examination DR JESSICA MACKEY [facility] Start: 05-28-2021 End: 05-29-[address] [...] Date Procedure Procedure Detail Performing Clinician Start: 05-01-2025 Us soft tissue head & neck real time imge david Diop NP Work Phone: Start: 02-04-2025 Hemoglobin glycosyla heidy a1c Conrado Ambriz MD Work Phone: Start: 02-04-2025 Urnls dip stick/tabl et rgnt non-auto w/o micrscp Conrado Ambriz MD Work Phone: Start: 12-06-2024 Radex shoulder compl ete minimum 2 views Erasmo Alvarez PA Work Phone: Start: 11-29-2024 Hemoglobin glycosyla heidy [...] Podiatry [address] [place] [id number] Prem Morales DPM [address] [place] [address] [facility] Start: 07-02-2025 Medicare Annual Well ness (AWV) Medicare Annual Wellness (AWV) [facility] Start: 06-11-2025 Urine screening for protein Diabetes: Urine Protein Screening [facility] Start: 05-09-2025 End: 05-09-2025 Patient encounter procedure 05/09/2025 10:00 AM EDT [facility] [address] [place] [address] Conrado Ambriz MD [address] [place] [address] [facility] Malik [facility] Start: 05-07-2025 Hemoglobin A1c measurement Diabetes: Hemoglobin A1C [facility] Start: 04-29-2025 Influenza vaccination Influenza Vacc ine (#1) [facility] Start: 04-25-2025 End: 04-25-2025 Patient encounter procedure 04/25/2025 9:00 AM EDT Office Visit KAPIL Malik [facility] [address] [place] [address] Adonay Diop, FINAL ASSEMBLY INSPECTOR [address] [place] [address] Arrived [facility] Comment on above: Arrived Start: 04-18-2025 End: 04-18-2025 Patient encounter procedure 04/18/2025 11:00 AM EDT Office Visit KAPIL Malik [facility] [address] [place] [address] Adonay Diop, FINAL ASSEMBLY INSPECTOR [address] [place] [address] Arrived KAPIL Monteze Comment on above: Arrived Start: 04-05-2025 End: 04-05-2025 Patient encounter procedure 04/05/2025 1:00 PM EDT Procedure Visit [facility] [address] [place] [address] Prem Morales, DPM [address] [place] [address] Arrived [facility] [place] [facility] Comment on above: Arrived Start: 04-03-2025 End: 04-03-2025 Patient encounter procedure 04/03/2025 9:45 AM EDT Procedure Visit [facility] [address] [place] [address] Prem Morales, DPM [address] [place] [address] [facility] Start: 02-28-2025 Hemoglobin A1c measurement Diabetes: Hemoglobin A1C [facility] Start: 02-04-2025 End: 02-04-2026 Comprehensive metabolic 2000 panel - Serum or Plasma Comprehensive metabolic panel Lab Routine Type 2 diabetes mellitus with other neurologic complication, without long-term current use of insulin Acute non-recurrent frontal sinusitis Expected: 02/04/2025 (Approximate), Expires: 02/04/2026 [facility] Work Phone: Comment on above: Expected: 02/04/2025 [...] EDT Office Visit [facility] [address] [facility] [address] [place] [address] Conrado Ambriz MD [address] [facility] [address] [place] [address] [facility] Start: 12-06-2024 End: 12-06-2024 Patient encounter procedure 12/06/2024 9:45 AM EDT Office Visit [facility] [address] [facility] [address] [place] [address] Erasmo Alvarez PA [address] [facility] [address] [place] [address] Acute pain of right shoulder (Primary Dx); Right shoulder pain, unspecified chronicity; Primary osteoarthritis of right shoulder [facility] Comment on above: Acute pain of right shoulder (Primary Dx); Right shoulder pain, unspecified chronicity; Primary osteoarthritis of right shoulder Start: 11-29-2024 End: 11-29-2024 Patient encounter procedure 11/29/2024 11:00 AM EDT Office Visit [facility] [address] [place] [address] Conrado Ambriz MD [address] [place] [address] Arrived [facility] Comment on above: Arrived Start: 10-25-2024 End: 10-25-2024 Patient encounter procedure [facility] Comment on above: Arrived Start: 10-24-2024 End: 10-24-2024 Patient encounter procedure [facility] Comment on above: Arrived Start: 09-12-2024 End: 09-12-2024 Patient encounter procedure 09/12/2024 11:00 AM EST Office Visit [facility] [address] [place] [address] Conrado Ambriz MD [address] [place] [address] [facility] Start: 09-11-2024 Hemoglobin A1c measurement Diabetes: Hemoglobin A1C [facility] Start: 08-31-2024 End: 08-31-2024 Patient encounter procedure 08/31/2024 10:30 AM EST Office Visit [facility] [address] [place] [address] Conrado Ambriz MD [address] [place] [address] [facility] Start: 08-01-2024 End: 08-01-2024 Patient encounter procedure 08/01/2024 9:30 AM EST Office Visit [facility] [address] [place] [address] Conrado Ambriz MD [address] [place] [address] Arrived [facility] Comment on above: Arrived Start: 07-24-2024 End: 07-24-2024 Patient encounter procedure 07/24/2024 10:45 AM EST Procedure Visit [facility] [address] [place] [address] Prem Morales, SEB [address] [place] [address] [facility] Start: 07-02-2024 End: 07-02-2024 Patient encounter procedure 07/02/2024 2:00 PM EST Office Visit [facility] [address] [place] [address] Analy Hammond PA [address] [place] [address] Arrived [facility] Comment on above: Arrived Start: 06-23-2024 Medicare Annual Well ness (AWV) Medicare Annual Wellness (AWV) [facility] Start: 06-23-2024 Urine screening for protein Diabetes: Urine Protein Screening [facility] Start: 06-11-2024 End: 06-11-2025 Comprehensive metabolic 2000 panel - Serum or Plasma Comprehensive metabolic panel Lab Routine Benign essential hypertension (CMS/HCC) Expected: 06/11/2024 (Approximate), Expires: 06/11/2025 [facility] Comment on above: Expected: 06/11/2024 (Approximate), Expires: 06/11/2025 Start: 06-11-2024 End: 06-11-2025 Lipid 1996 panel - Serum or Plasma Lipid panel Lab Routine Mixed hyperlipidemia (CMS/HCC) Expected: 06/11/2024 (Approximate), Expires: 06/11/2025 [facility] Comment on above: Expected: 06/11/2024 (Approximate), Expires: 06/11/2025 Start: 06-11-2024 End: 06-11-2025 TSH W/REFLEX TO FT4 TSH W/REFLEX TO FT4 Lab Routine Acquired hypothyroidism (CMS/HCC) Expected: 06/11/2024 (Approximate), Expires: 06/11/2025 [facility] Comment on above: Expected: 06/11/2024 (Approximate), Expires: 06/11/2025 Start: 06-11-2024 End: 06-11-2024 Patient encounter procedure 06/11/2024 11:15 AM EDT Office Visit [facility] [address] [facility] [address] [place] [address] Conrado Ambriz MD 112 [facility] [address] [place] [address] Arrived [facility] Comment on above: Arrived Start: 05-23-2024 [facility] Start: 04-29-2024 Influenza vaccination Influenza Vacc ine (#1) [facility] Start: 04-20-2024 End: 04-20-2024 Patient encounter procedure 04/20/2024 9:00 AM EDT Procedure Visit [facility] [address] [place] [address] Prem Morales DPM [address] [place] [address] Arrived [facility] Comment on above: Arrived Start: 03-19-2024 Hemoglobin A1c measurement Diabetes: Hemoglobin A1C [facility] Start: 08-12-2023 Glaucoma screening Diabetes: R etinopathy Screening [facility] CBC W Auto Different ial panel - Blood CBC and differential Lab Routine Benign essential hypertension (CMS/HCC) Ordered: 06/11/2024 [facility] Work Phone: Comment on above: Ordered: 06/11/2024 CBC W Auto Different ial panel - Blood CBC and differential Lab Routine Type 2 diabetes mellitus with other neurologic complication, without long-term current use of insulin Acute non-recurrent frontal sinusitis Ordered: 02/04/2025 [facility] Comment on above: Ordered: 02/04/2025 Patient Education [facility] Work Phone: Patient referral [facility] Work Phone: Immunizations Immunization Date Immunization Notes Care Provider [facility] 06-11-2024 Influenza, High-dose Seasonal, Quadrivalent, Preservative Free Conrado Ambriz MD Work Phone: [facility] 06-11-2024 influenza virus vacc ine, unspecified formulation Prem Morales DPM Work Phone: [facility] 06-17-2023 Influenza, High-dose Seasonal, Quadrivalent, Preservative Free Prem Gustavobitz DPM Work Phone: [facility] 06-17-2023 influenza virus vacc ine, unspecified formulation Prem Chenbitz DPM Work Phone: [facility] 07-13-2022 Moderna Bivalent Hannah ster Vaccination Prem Gustavobitz DPM Work Phone: [facility] 06-10-2022 Influenza, High-dose Seasonal, Quadrivalent, Preservative Free Prem Gustavobitz DPM Work Phone: [facility] 07-08-2021 COVID-19 mRNAInna (Pfizer) MD Fernando Diamond Work Phone: [facility] 06-18-2021 Influenza, Seasonal, Quadrivalent, Adjuvanted Prem Gustavobitz DPM Work Phone: [facility] 10-11-2020 COVID-19 mRNAInna (Pfizer) MD Fernando Diamond Work Phone: [facility] 09-20-2020 COVID-19 mRNAInna (Pfizer) MD Fernando Diamond Work Phone: [facility] 05-16-2020 Influenza, Seasonal, Quadrivalent, Adjuvanted Prem Gustavobitz DPM Work Phone: [facility] 06-12-2019 influenza, high dose seasonal, preservative-free Prem Chenbitz DPM Work Phone: [facility] 07-13-2018 pneumococcal polysaccharide vaccine, 23 valent Prem Gustavobitz DPM Work Phone: [facility] 06-19-2018 influenza, high dose seasonal, preservative-free Prem Gustavobitz DPM Work Phone: [facility] 06-19-2018 zoster vaccine recombinant Prem Kubitz DPM Work Phone: [facility] 01-09-2018 zoster vaccine recombinant Prem Kubitz DPM Work Phone: [facility] 05-30-2017 influenza, high dose seasonal, preservative-free Prem Gustavobitz DPM Work Phone: [facility] 10-20-2016 pneumococcal conjuga te vaccine, 13 valent Prem Gustavobitz DPM Work Phone: [facility] 06-01-2016 influenza, injectabl e, quadrivalent, preservative free Prem Gustavobitz DPM Work Phone: [facility] 07-30-2015 pneumococcal polysaccharide vaccine, 23 valent Prem Gustavobitz DPM Work Phone: [facility] 05-08-2015 seasonal influenza, intradermal, preservative free Prem Gustavobitz DPM Work Phone: [facility] 12-27-2014 pneumococcal polysaccharide vaccine, 23 valent Prem Gustavobitz DPM Work Phone: [facility] 06-03-2014 seasonal influenza, intradermal, preservative free Prem Gustavobitz DPM Work Phone: [facility] 12-27-2005 pneumococcal polysaccharide vaccine, 23 valent Prem Gustavobitz DPM Work Phone: [facility] 07-13-2002 pneumococcal polysaccharide vaccine, 23 valent Prem Gustavobitz DPM Work Phone: [facility] Payers Date Payer Category Payer Private Health Insurance [employer] [id number] 2021 Unknown [employer] [id number] 2021-Present [address] [place] [address] [id number] 2001 Medicare [id number]. [id number] 1959 Medicare [id number] 2.16.840.1.362253.19 1959 Unknown [id number] 2.16.840.1.335946.19 1936 Unknown [id number] 2.16.840.1.842069.3.579.2. 593 1936 Unknown [id number] 2.16.840.1.557940.3.579.2. 593 1936 Unknown [id number] 2.16.840.1.487740.3.579.2. 593 1936 Unknown [id number] 2.16.840.1.456957.3.579.2. 593 1936 Unknown [id number] 2.16.840.1.750208.3.579.2. 593 1936 Unknown [id number] 2.16.840.1.882688.3.579.2. 593 1936 Unknown [id number] 2.16.840.1.441994.3.579.2. 593 1936 Unknown [id number] 2.16.840.1.598046.3.579.2. 593 1936 Unknown [id number] 2.16.840.1.608848.3.579.2. 1259 1936 Unknown [id number] 2.16.840.1.031068.3.579.2. 1259 1936 Unknown [id number] 2.16.840.1.730801.3.579.2. 1259 1936 Unknown [id number] 2.16.840.1.853611.3.579.2. 1259 1936 Unknown [id number] 2.16.840.1.632340.3.579.2. 1258 1936 Unknown [id number] 2.16.840.1.012269.3.579.2. 125 1936 Unknown [id number] 2.16.840.1.731051.3.579.2. 125 1936 Unknown [id number] 2.16.840.1.540860.3.579.2. 1258 1936 Unknown [id number] 2.16.840.1.260561.3.579.2. 1258 1936 Unknown [id number] 2.16.840.1.942617.3.579.2. 1258 1936 Unknown [id number] 2.16.840.1.747923.3.579.2. 125 1936 Unknown [id number] 2.16.840.1.092163.3.579.2. 1258 1936 Unknown [id number] 2.16.840.1.841808.3.579.2. 9 1936 Unknown [id number] 2.16.840.1.599343.3.579.2. 1258 1936 Unknown [id number] 2.16.840.1.217010.3.579.2. 1259 Medicare Medicare Nonpatient [id number] Self-pay Self Pay [id number] Unknown [place] [id number] Social History Date Type Detail Facility Start: 04-21-2023 End: 03-26-2024 Sex Assigned At [facility] Other Start: 12-13-2022 End: 01-16-2023 Tobacco smoking status NHIS Never smoked tobacco (finding) [facility] Start: 1935 Sex Assigned At Female F [facility] Start: 01-16-2023 Tobacco use and exposure Smokeless tobacco non-user [facility] Start: 05-23-2024 End: 04-25-2025 Alcoholic beverage intake Lifetime non-drinker (finding) [facility] [...] Start: 10-03-2024 End: 01-08-2025 Sex Female (finding) [facility] How often do you nee d [...] activity. PATIENT WAS ADVISED TO CONTACT HER VIDEOTAPE SALES REPRESENTATIVE AT THE DISPENSED THE EXTRA-DEPTH DIABETIC SHOES TO HER TO SEE IF WHAT THE MODIFICATION THE PATIENT WAS REQUEST. I DO NOT THINK SHE CAN MAKE MORE ROOM TO THE SHOE WITHOUT THINNING OUT HER FULL-LENGTH CUSTOM FOOT ORTHOTIC WHICH WOULD BE ILL ADVISED IN MY OPINION. documented in this encounter [facility] 02-04-2025 History of Presen t illness Narrative Images from the original note were not included. Subjective Patient ID: James Weaver is a 89 y.o. female who presents for No chief complaint on file.. James presents today for her diabetes F/U. Her [...] EXCISION Right CHOLECYSTECTOMY COLECTOMY [address] Mraie COLONOSCOPY COLONOSCOPY W/ POLYPECTOMY 05/20/2021 COLONOSCOPY W/ [...] months (around 05/07/2025). documented in this encounter [facility] 01-08-2025 History of Presen t [...] all weightbearing activity. documented in this encounter [facility] 12-06-2024 History of Presen t illness Narrative Images from the original note were not included. HISTORY OF PRESENT ILLNESS: TEODORA BRANCH James Weaver is an 89 y.o. @ female. (TEODORA Singh/ REI) (DR. AMBRIZ REFERRAL) (NEW PROBLEM) - [...] (R) ROTATOR CUFF REPAIR 2001 (~23 YRS) [facility]: Allergies Allergen Reactions Hylan G-F 20 [...] requiring urgent evaluation. documented in this encounter [facility] 11-29-2024 History of Presen t illness Narrative Images from the original note were not included. HPI would like to have ears and chest checked Additional comments: Pt finished abx feels better but would like ears and chest checked again Last edited by Hollie Jimenez LPN on 11/29/2024 10:56 AM. Subjective Patient ID: James Weaver is a 89 y.o. female who presents [...] for surgery History of sinus problem Hypertension ([facility]/HCC) Knee problem Macular degeneration Onychomycosis Osteoporosis (CMS/HCC) [...] for Routine F/U. documented in this encounter [facility] 11-14-2024 Evaluation note Diagnosis Onset Date Resolution Chronic GERD acute November 14, 2024 1:45pm Diarrhea acute November 14 1:45pm Incontinence acute November 14, 2024 1:45pm Irritable bowel syndrome with constipation acute November 14, 2024 1:45pm [facility] Work Phone: 1(822) 621-465902-27-2025 History of Present illness Narrative* Adonay Diop NP - 10/25/2024 1:00 PM EST Images from the original note were not included. Subjective Patient ID: James Weaver is a 89 y.o. female who presents [...] for surgery History of sinus problem Hypertension ([facility]) Knee problem Macular degeneration Onychomycosis Osteoporosis ([facility]) Rotator cuff tear, left Rotator cuff tear, right Sepsis secondary to UTI ([facility]) 04/30/2022 Tear of rotator cuff 02/02/2023 Type 2 diabetes mellitus ([facility]) Visual impairment w/corrective lenses Past Surgical History: [...] Assessment/Plan 1. Encounter for diabetic foot exam ([facility]) (Primary) Diabetic foot exam completed today. No concerns are noted. 2. Type 2 diabetes mellitus with other neurologic complication, without long- term current use of insulin ([facility]) 06/11/24 Glucose 65 - 99 mg/dL 186 [...] No follow-ups on file. documented in this [facility]02-27-2025 Instructions* Patient Instructions* Adonay Diop NP - 10/25/2024 1:00 PM EST Add amoxicillin today Ear lavage to both ears today, clear. Ropinirole increased today. documented in this [facility]02-26-2025 History of Present illness Narrative* Prem [...] for all weightbearing activity. documented in [facility] [id number] Evaluation note* Diagnosis Onset Date Resolution Status Admit Date Chronic GERD acute September 1:11pm Irritable bowel syndrome wit h constipation acute October 03 1:11pm Chronic GERD acute November 14, 2024 1:45pm Diarrhea acute November 14 1:45pm Incontinence acute November 14, 2024 1:45pm Irritable bowel syndrome wit h constipation acute November 14, 2024 1:45pm [facility] Work Phone: 1(755) 880-502801-03-2025 History of Present illness Narrative* Conrado Ambriz [...] on 08/31/2024 10:55 AM. Subjective Patient ID: James Weaver is a 89 y.o. female who presents [...] with the patient today. Allergies Allergen Reactions Tristin Pappas-F 20 Swelling Other Reaction(s): Edema Metformin Diarrhea [...] rotator cuff 02/02/2023 Type 2 diabetes mellitus (CMS/HCC) Visual impairment w/corrective lenses Past Surgical History: [...] Status Glucose, UA 08/01/2024 Negative Negative - 2000(110) ++++ mg/dL Final Bilirubin, UA 08/01/2024 Trace [...] complication, without long-term current use of insulin ([facility]) - FSBS log shows good control, most recent A1C is at or near goal. Continue current treatment plan as previously outlined without changes. - This office visit was spent in consultation regarding the patient's current medical problems, differential diagnoses, testing/imaging results, and treatment options. Greater than 25 minutes was spent in [id number] consultation and coordination of care. Gastroesophageal reflux disease, 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 esophagitis present - omeprazole (PriLOSEC) [address] capsule; Take 1 capsule (40 mg) by mouth in the morning. Take before meals. Do not crush or chew.. Mixed stress and urge urinary incontinence - POCT Urinalysis dipstick Follow up in about 3 months (around 11/29/2024) for Routine F/U. documented in this encounterMiss[facility] [id number] History of Present illness Narrative* Conrado Ambriz MD - 08/01/2024 9:30 AM EST Images from the original note were not included. Subjective Patient ID: James Weaver is a 88 y.o. female who presents [...] rotator cuff 02/02/2023 Type 2 diabetes mellitus ([facility]) Visual impairment w/corrective lenses Past Surgical History: [...] OTHER SURGICAL HISTORY Right R/O buccal mass 3--13 Dr. Williamson RADIOFREQUENCY ABLATION Left 07/08/2020 L2-L4 [...] (around 08/29/2024) for Wellness. documented in this encounterMiss[facility] [id number] Evaluation note* Diagnosis Onset Date Resolution Status Admit Date Irritable bowel syndrome wit h constipation acute July 24, 2 024 1:16pm Chronic GERD acute September 1:11pm Irritable bowel syndrome wit h constipation acute October 03 1:11pm [facility] Work Phone: 1(221) 959-817411-04-2024 History of Present illness Narrative* JOHNIE Lal - 07/02/2024 2:00 PM EST Images from the original note were not included. Subjective : Chief Complaint: James Weaver is an 88 y.o. female here for [...] (CMS/HCC) Knee problem Macular degeneration Onychomycosis Osteoporosis (CMS/[facility]) Rotator cuff tear, left Rotator cuff tear, right Sepsis secondary to UTI (CMS/HCC) 04/30/2022 Tear of rotator cuff 02/02/2023 Type 2 diabetes mellitus ([facility]) Visual impairment w/corrective lenses Past Surgical History: [...] 06/26/2020 L2-L4 RFA ROTATOR CUFF REPAIR Left 2007 SHOULDER OPEN ROTATOR CUFF REPAIR Right 2002 [...] Do you have a medical power of attorney lawyer?: Yes Objective : BP 148/76 Pulse 74 [...] complication, without long-term current use of insulin ([facility]) This is a chronic medical condition that [...] suggested at this time. Benign essential hypertension (CMS/HCC) BP mildly elevated today. Will recheck at follow up. Continue current medications for now. Sinus arrhythmia This is a chronic medical condition that is stable since last assessment. No changes in treatment are suggested at this time. Altered bowel function The patient is seeing a medical accounts receivable specialist for this condition, treatment is deferred to that specialist. Correspondence from that specialist and any available testing were reviewed during today's visit. Chronic constipation The patient is seeing a medical accounts receivable specialist for this condition, treatment is deferred to that specialist. Correspondence from that specialist and any available testing were reviewed during today's visit. Cyst of pancreas (CMS/HCC) The patient is seeing a medical accounts receivable specialist for this condition, treatment is deferred to that specialist. Correspondence from that specialist and any available testing were reviewed during today's visit. Diverticulosis of sigmoid colon The patient is seeing a medical accounts receivable specialist for this condition, treatment is deferred to that specialist. Correspondence from that specialist and any available testing were reviewed during today's visit. Gastroesophageal reflux disease without esophagitis The patient is seeing a medical accounts receivable specialist for this condition, treatment is deferred to that specialist. Correspondence from that specialist and any available testing were reviewed during today's visit. Hyperplastic polyp of large intestine The patient is seeing a medical accounts receivable specialist for this condition, treatment is deferred to that specialist. Correspondence from that specialist and any available testing were reviewed during today's visit. Incontinence of feces, unspecified fecal incontinence type The patient is seeing a medical accounts receivable specialist for this condition, treatment is deferred to that specialist. Correspondence from that specialist and any available testing were reviewed during today's visit. Irritable bowel syndrome with constipation The patient is seeing a medical accounts receivable specialist for this condition, treatment is deferred to that specialist. Correspondence from that specialist and any available testing were reviewed during today's visit. Pseudopolyposis of colon, unspecified complication status, unspecified part of colon (CMS/HCC) The patient is seeing a medical accounts receivable specialist for this condition, treatment is deferred to [...] left foot The patient is seeing a medical accounts receivable specialist for this condition, treatment is deferred to that specialist. Correspondence from that specialist and any available testing were reviewed during today's visit. Acquired pes planovalgus of right foot The patient is seeing a medical accounts receivable specialist for this condition, treatment is deferred to [...] of nail The patient is seeing a medical accounts receivable specialist for this condition, treatment is deferred to that specialist. Correspondence from that specialist and any available testing were reviewed during today's visit. Fat pad atrophy of foot The patient is seeing a medical accounts receivable specialist for this condition, treatment is deferred to that specialist. Correspondence from that specialist and any available testing were reviewed during today's visit. Hallux limitus of left foot The patient is seeing a medical accounts receivable specialist for this condition, treatment is deferred to that specialist. Correspondence from that specialist and any available testing were reviewed during today's visit. Hallux limitus of right foot The patient is seeing a medical accounts receivable specialist for this condition, treatment is deferred to that specialist. Correspondence from that specialist and any available testing were reviewed during today's visit. Hallux valgus of left foot The patient is seeing a medical accounts receivable specialist for this condition, treatment is deferred to that specialist. Correspondence from that specialist and any available testing were reviewed during today's visit. Hallux valgus of right foot The patient is seeing a medical accounts receivable specialist for this condition, treatment is deferred to that specialist. Correspondence from that specialist and any available testing were reviewed during today's visit. Hammertoe of left foot The patient is seeing a medical accounts receivable specialist for this condition, treatment is deferred to that specialist. Correspondence from that specialist and any available testing were reviewed during today's visit. Hammertoe of right foot The patient is seeing a medical accounts receivable specialist for this condition, treatment is deferred to that specialist. Correspondence from that specialist and any available testing were reviewed during today's visit. Nail deformity The patient is seeing a medical accounts receivable specialist for this condition, treatment is deferred to that specialist. Correspondence from that specialist and any available testing were reviewed during today's visit. Primary osteoarthritis of both knees The patient is seeing a medical accounts receivable specialist for this condition, treatment is deferred to that specialist. Correspondence from that specialist and any available testing were reviewed during today's visit. 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 Correspondence from that specialist and any available testing were reviewed during today's visit. Sensorineural hearing loss (SNHL), bilateral The patient is seeing a medical accounts receivable specialist for this condition, treatment is deferred to that specialist. Correspondence from that specialist and any available testing were reviewed during today's visit. Risk for falls This is a chronic medical condition that is stable since last assessment. No changes in treatment are suggested at this time. Psoriasis, unspecified (CMS/HCC) This is a chronic medical condition that is stable since last assessment. No changes in treatment are suggested at this time. Pre-ulcerative calluses The patient is seeing a medical accounts receivable specialist for this condition, treatment is deferred to [...] unspecified type The patient is seeing a medical accounts receivable specialist for this condition, treatment is deferred to [...] partial colectomy The patient is seeing a medical accounts receivable specialist for this condition, treatment is deferred to that specialist. Correspondence from that specialist and any available testing were reviewed during today's visit. Ganglion cyst The patient is seeing a medical accounts receivable specialist for this condition, treatment is deferred to [...] choroidal neovascularization The patient is seeing a medical accounts receivable specialist for this condition, treatment is deferred to that specialist. Correspondence from that specialist and any available testing were reviewed during today's visit. Vitreous hemorrhage, bilateral The patient is seeing a medical accounts receivable specialist for this condition, treatment is deferred to that specialist. Correspondence from that specialist and any available testing were reviewed during today's visit. Follow up for Appointment As Scheduled. Electronically signed by Analy Hammond PA-C on July 02, 2024 documented in this encounterMissouri Delta Medical [id number] History of Present illness Narrative* Conrado Ambriz MD - 06/11/2024 11:15 AM EDT Images from the original note were not included. Subjective Patient ID: James Weaver is a 88 y.o. female who presents [...] (CMS/HCC) Knee problem Macular degeneration Onychomycosis Osteoporosis (CMS/[facility]) Rotator cuff tear, left Rotator cuff tear, right Sepsis secondary to UTI ([facility]) 04/30/2022 Type 2 diabetes mellitus ([facility]) Visual impairment w/corrective lenses Past Surgical History: [...] need - Influenza, high-dose seasonal, quadrivalent, PF (BTS481) (Fluzone High Dose Quad North 0.7mL dose) [...] No follow-ups on file. documented in this encounterMissouri Delta Medical [id number] [facility]Tr[facility] History of Present illness Narrative* Prem [...] therapy at this time. documented in this encounterMissouri Delta Medical [id number] Evaluation note* Encounter Date Diagnosis Assessment Notes Treatment Notes Treatment Clinical Notes Jul, Diarrhea (ICD-10 - R19.7) Stool sutdies as indicated above Start Imodium 1 tablet every morning Flex sig Jul, Fecal incontinence (ICD-10 - R15.9) [facility] Other 12-17-2021 Reason for visit NarrativePATIENT HERE AT THE REQUEST OF DR. AMBRIZ FOR EVALUATION & TREATMENT OF DIARRHEA, 08/14/21 OBTAIN ED COLONOSCOPY FROM [facility] MESSAGE AT DR MACKEY'S OFFICE FOR PATHOLOGY REPORT TO BE FAXEDNorth [facility] Other 09-22-2021 NoteOPERATIVE NOTE OPERATION DATE: 05-20-21 [...] Room in good condition. cc:Dr. Conrado Ambriz. [facility] Signed and Approved by: DR JESSICA MACKEY . 05/20/2021 11:18:00[facility] [place] [facility] noteNo InformationNort [facility] Other Evaluation noteNo assessment information available [facility] Work Phone: Evaluation note* Diagnosis Onset Date Resolution Status Change in bowel habits acute Change in stool caliber acut e Irritable bowel syndrome with constipation acute Rectal bleeding acute [facility] [place] Work Phone: Evaluation note* Diagnosis Mixed hyperlipidemia (CMS/HCC)- Primary Mixed hyperlipidemia Type 2 diabetes mellitus with other neurologic complication, without long-term current use of insulin (CMS/HCC) Flu vaccine need Acquired hypothyroidism (CMS/HCC) Unspecified hypothyroidism Benign essential hypertension (CMS/HCC) Essential hypertension, benign Acute non-recurrent sinusitis, unspecified location documented in this encounter [facility] HealthcareEvaluation note* Diagnosis Onset Date Resolution Status Change in bowel habits acute Change in stool caliber acut e Irritable bowel syndrome with constipation acute Rectal bleeding acute Irritable bowel syndrome with constipation acute [facility] [place] Work Phone: Evaluation note* Diagnosis Medicare annual [...] hyperglycemia, without long-term current use of insulin ([facility]) Atopic dermatitis, unspecified type Balance problem Abnormality of gait Tinnitus of both ears Unspecified tinnitus Sensorineural hearing loss (SNHL), bilateral Risk for falls Psoriasis, unspecified ([facility]) Pre-ulcerative calluses Other allergic rhinitis Mixed hyperlipidemia ([facility]) Mixed hyperlipidemia Macular degeneration of both eyes, unspecified type Localized edema Edema Impaired ambulation History of partial colectomy Ganglion cyst Unspecified ganglion Skin tear of lower leg without complication, left, initial encounter Exudative age-related macular degeneration, bilateral, with inactive choroidal neovascularization ([facility]) Vitreous hemorrhage, bilateral ([facility]) Vitreous hemorrhage documented in this encounter [facility]* Diagnosis Onychomycosis- Primary Dermatophytosis of nail Pain around toenail, left foot Type 2 diabetes mellitus with other neurologic complication, 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 ([facility]) Localized edema Edema documented in this encounter [facility]* Diagnosis Acute cystitis without hematuria- Primary Gastroesophageal reflux disease, 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 esophagitis present Acute non-recurrent sinusitis, unspecified location documented in this encounter [facility]* Diagnosis Onychomycosis- Primary Dermatophytosis of nail Pain around toenail, left foot Nail deformity Unspecified disease of nail Type 2 diabetes mellitus with other neurologic complication, 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 ([facility]) Localized edema Edema Ingrown toenail Ingrowing nail documented [facility] this encounter [facility]* Diagnosis Type 2 diabetes mellitus with other neurologic complication, without long-term current use of insulin ([facility])- Primary Gastroesophageal reflux disease, 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 esophagitis present Mixed stress and urge urinary incontinence Mixed incontinence urge and stress (male)(female) documented in this encounter [facility]* Diagnosis Ingrown toenail of both feet- Primary Onychomycosis Dermatophytosis of nail Pain around toenail, left foot Pain around toenail, right foot Type 2 diabetes mellitus with other neurologic complication, 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 long-term insulin use ([facility]) Localized edema Edema Nail deformity Unspecified disease of nail documented in this encounter [facility]* Diagnosis Encounter for diabetic foot exam ([facility])- Primary Type 2 diabetes mellitus with other neurologic complication, without long-term current use of insulin (CMS/HCC) Neuropathic pain Acute non-recurrent frontal sinusitis Restless legs syndrome (RLS) Bilateral impacted cerumen Impacted cerumen Exudative age-related macular degeneration, bilateral, with inactive choroidal neovascularization (CMS/HCC) Vitreous hemorrhage, bilateral (CMS/HCC) Vitreous hemorrhage Inflammatory polyps of colon without complications (CMS/HCC) Inflammatory polyps of colon with rectal bleeding [...] mellitus with other neurologic complication, 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 long-term insulin use (CMS/HCC) Onychomycosis Dermatophytosis of nail [...] mellitus with other neurologic complication, 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 (HCC) Localized edema Edema documented in this encounter [facility] HealthcareHistory and physical note Author Sadiq Barton [facility] May 23, 2024 9:09am Note Date/Time May 23, 2024 9:10am [facility] [address] [place] [address] Gastroenterology H&P Signed Patient: James Weaver MR#: [id number] : 1935 Acct:[id number] Age/Sex: 88 / F Adm Date: 4 Loc: Room: Type: [facility] Attending Dr: Sadiq Barton MD Copies to: [...] By: <Electronically signed by Sadiq Barton MD> 05/23/24908 [facility] Work Phone: History general Narrative - Reported* [...] lumbar back surgery Hospitalization History SEE ABOVE [facility] Other Hospital Discharge instructions Additional Instructions Continue current meds Follow-up with your private physician Return if symptoms are worseOhiohealth Doctors Hospital Work Phone: Hospital Discharge instructions Additional Instructions [...] machinery such as power tools, lawn mowers, [employer] blowers, sewing machines, etc. for 24 hours. [...] problems. -Follow up with PCP. -Office number [phone].[facility] Work Phone: Reason for referral (narrative)No reason for referral information availableS[facility] Hospital [facility] Work Phone: Summary Purpose Family History Relationship Condition Age at Onset Recorded Date/T sher father Heart problem Unknown Relationship Condition Age at Onset Recorded Date/T sher father Heart problem Unknown father Unknown Heart disease Unknown mother History of stroke Unknown Unknown Relationship Condition Age at Onset Recorded Date/T sher father Heart problem Unknown Unknown Heart disease Unknown mother Unknown History of stroke Unknown Advance Directives Advance Directive Response Recorded Date/ [...] 14, 2024 1:45pm Chief Complaint Admit Date 8 week follow up-constipation/gerd Augus t 2024 9:32am Additional Source Comments INFORMATION SOURCE (unrecogn ized section and content) DATE CREATED AUTHOR 06/04/2021 [facility] DATE CREATED AUTHOR AUTHOR'S ORGANIZ ATION 01/18/2022 [facility] DATE CREATED AUTHOR AUTHOR'S ORGANIZ ATION 05/07/2022 [facility] DATE CREATED AUTHOR AUTHOR'S ORGANIZ ATION 10/16/2024 [facility] DATE CREATED AUTHOR AUTHOR'S ORGANIZ ATION 02/07/2025 [facility] DATE CREATED AUTHOR AUTHOR'S ORGANIZ ATION 04/27/2025 [facility] EPIC REASON FOR VISIT [...] Pain Specialty Diagnoses / Procedures Referred By Marcelina t Referred To Contact Orthopaedic Surgery Diagnoses Primary osteoarthritis of right shoulder Conrado Ambriz MD [address] [facility] [address] [place] [address] Phone: tel: fax: Jr. Bill Marcum DO [address] [place] [address] Phone: tel:[phone] fax:[phone] Referral ID Status Reason Start Date Expiration Date V isits Requested Visits Authorized [id number] Closed Specialty Services Required 11/29/2024 05/28/2025 1 [...] Other Provider Active Start: May 23, 2024 Resident Care Director Relationship Specialty Start Date End Date Conrado Ambriz MD [address] [facility] [address] [place] [address] PCP - General Internal Medicine 01/19/23 Conrado Ambriz MD [address] [facility] [address] [place] [address] PCP - ACO Reach 10/28/23 Resident Care Director Relationship Specialty Start Date End Date Conrado Ambriz MD [address] [facility] [address] [place] [address] PCP - General Internal Medicine 01/19/23 Conrado Ambriz MD [address] [place] [address] [place] [address] PCP - ACO Reach 10/28/23 Team Status: Inactive Member Role Status Dates Conrado Ambriz II MD Primary Care Provider Active Start: June 20, 2024 End: June 20, 2024 Nayan Dominguez APRN Attending Provider Active Start: June 20, 2024 End: June 20, 2024 Resident Care Director Relationship Specialty Start Date End Date Conrado Ambriz MD [address] [place] [address] [place] [address] PCP - General Internal Medicine 01/19/23 Conrado Ambriz MD [address] [place] [address] [place] [address] PCP - ACO Reach 10/28/23 Resident Care Director Relationship Specialty Start Date End Date Conrado Ambriz MD [address] [place] [address] [place] [address] PCP - General Internal Medicine 01/19/23 Conrado Ambriz MD [address] [place] [address] [place] [address] PCP - ACO Reach 10/28/23 Resident Care Director Relationship Specialty Start Date End Date Conrado Ambriz MD [address] [place] [address] [place] [address] PCP - General Internal Medicine 01/19/23 Conrado Ambriz MD [address] [place] [address] [place] [address] PCP - ACO Reach 10/28/23 Resident Care Director Relationship Specialty Start Date End Date Conrado Ambriz MD [address] [place] [address] [place] [address] PCP - General Internal Medicine 01/19/23 Conrado Ambriz MD [address] [place] [address] [place] [address] PCP - ACO Reach 10/28/23 Resident Care Director Relationship Specialty Start Date End Date Conrado Ambriz MD [address] [place] [address] [place] [address] PCP - General Internal Medicine 01/19/23 Conrado Ambriz MD [address] [place] [address] [place] [address] PCP - ACO Reach 10/28/23 Resident Care Director Relationship Specialty Start Date End Date Conrado Ambriz MD [address] [place] [address] [place] [address] PCP - General Internal Medicine 01/19/23 Conrado Ambriz MD [address] [place] [address] [place] [address] PCP - ACO Reach 10/28/23 Resident Care Director Relationship Specialty Start Date End Date Conrado Ambriz MD [address] [place] [address] [place] [address] PCP - General Internal Medicine 01/19/23 Conrado Ambriz MD [address] [place] [address] [place] [address] PCP - ACO Reach 10/28/23 Resident Care Director Relationship Specialty Start Date End Date Conrado Ambriz MD [address] [place] [address] [place] [address] PCP - General Internal Medicine 01/19/23 Conrado Ambriz MD [address] [place] [address] [place] [address] PCP - ACO Reach 10/28/23 Resident Care Director Relationship Specialty Start Date End Date Conrado Ambriz MD [address] [place] [address] [place] [address] PCP - General Internal Medicine 01/19/23 Conrado Ambriz MD [address] [place] [address] [place] [address] PCP - ACO Reach 10/28/23 Team Status: [...] October 15, 2024 End: October 15, 2024 Resident Care Director Relationship Specialty Start Date End Date Conrado Ambriz MD [address] [place] [address] [place] [address] PCP - General Internal Medicine 01/19/23 Conrado Ambriz MD [address] [place] [address] [place] [address] PCP - ACO Reach 10/28/23 Kristel Rain RN Clinical [facility] 10/05/24 Resident Care Director Relationship Specialty Start Date End Date Conrado Ambriz MD [address] [place] [address] [place] [address] PCP - General Internal Medicine 01/19/23 Conrado Ambriz MD [address] [place] [address] [place] [address] PCP - ACO Reach 10/28/23 Kristel Rain, RN [facility] 10/05/24 Resident Care Director Relationship Specialty Start Date End Date Conrado Ambriz MD [address] [place] [address] [place] [address] PCP - General Internal Medicine 01/19/23 Conrado Ambriz MD [address] [place] [address] [place] [address] PCP - ACO Reach 10/28/23 Kristel Rain, VIDA Clinical Advocate [facility] 10/05/24 Team Status: Inactive Member Role Status Dates Conrado Ambriz II MD Primary Care Provider Active Start: November 14, 2024 End: November 14, 2024 Nayan Dominguez APRN Attending Provider Active Start: November 14, 2024 End: November 14, 2024 Resident Care Director Relationship Specialty Start Date End Date Conrado Ambriz MD [address] [place] [address] [place] [address] PCP - General Internal Medicine 01/19/23 Conrado Ambriz MD [address] [place] [address] [place] [address] PCP - ACO Reach 10/28/23 Merna Lr LPN 11/16/24 Resident Care Director Relationship Specialty Start Date End Date Conrado Ambriz MD [address] [place] [address] [place] [address] PCP - General Internal Medicine 01/19/23 Conrado Ambriz MD [address] [place] [address] [place] [address] PCP - ACO Reach 10/28/23 Merna Lr LPN 11/16/24 Resident Care Director Relationship Specialty Start Date End Date Conrado Ambriz MD [address] [place] [address] [place] [address] PCP - General Internal Medicine 01/19/23 Conrado Ambriz MD [address] [place] [address] [place] [address] PCP - ACO Reach 10/28/23 Merna Lr LPN 11/16/24 Resident Care Director Relationship Specialty Start Date End Date Conrado Ambriz MD [address] [place] [address] [place] [address] PCP - General Internal Medicine 01/19/23 Conrado Ambriz MD [address] [place] [address] [place] [address] PCP - ACO Reach 10/28/23 Merna Lr [employer]SEM[employer]ER 11/16/24 Resident Care Director Relationship Specialty Start Date End Date Conrado Ambriz MD [address] [place] [address] [place] [address] PCP - General Internal Medicine 01/19/23 Conrado Ambriz MD [address] [place] [address] [place] [address] PCP - ACO Reach 10/28/23 Merna Lr LPN 11/16/24 Resident Care Director Relationship Specialty Start Date End Date Conrado Ambriz MD [address] [place] [address] [place] [address] PCP - General Internal Medicine 01/19/23 Conrado Ambriz MD [address] [place] [address] [place] [address] PCP - ACO Reach 10/28/23 Merna Lr LPN 11/16/24 Resident Care Director Relationship Specialty Start Date End Date Conrado Ambriz MD [address] [place] [address] [place] [address] PCP - General Internal Medicine 01/19/23 Conrado Ambriz MD [address] [place] [address] [place] [address] PCP - ACO Reach 10/28/23 Merna Lr LPN 11/16/24 Team Status: Inactive Member Role Status Dates Conrado Ambriz II MD Primary Care Provider Active Start: January 08, 2025 End: January 08, 2025 Nayan Dominguez APRN Attending Provider Active Start: January 08, 2025 End: January 08, 2025 Resident Care Director Relationship Specialty Start Date End Date Conrado Ambriz MD [address] [place] [address] [place] [address] PCP - General Internal Medicine 01/19/23 Conrado Ambriz MD [address] [place] [address] [place] [address] PCP - ACO Reach 10/28/23 Merna Lr LPN 11/16/24 Resident Care Director Relationship Specialty Start Date End Date Conrado Ambriz MD [address] [place] [address] [place] [address] PCP - General Internal Medicine 01/19/23 Conrado Ambriz MD [address] [place] [address] [place] [address] PCP - ACO Reach 10/28/23 Merna Lr LPN 11/16/24 Resident Care Director Relationship Specialty Start Date End Date Conrado Ambriz MD [address] [place] [address] PCP - General Internal Medicine 01/19/23 Conrado Ambriz MD [address] [place] [address] PCP - ACO Reach 10/28/23 Merna rL LPN [address] [place] [address] 11/16/24 Resident Care Director Relationship Specialty Start Date End Date Conrado Ambriz MD [address] [place] [address] PCP - General Internal Medicine 01/19/23 Conrado Ambriz MD [address] [place] [address] PCP - ACO Reach 10/28/23 Merna Lr LPN [address] [place] [address] 11/16/24 Resident Care Director Relationship Specialty Start Date End Date Conrado Ambriz MD [address] [place] [address] PCP - General Internal Medicine 01/19/23 Conrado Ambriz MD [address] [place] [address] PCP - ACO Reach 10/28/23 Merna Lr LPN [address] [place] [address] 11/16/24 Team Status: Inactive Member Role Status Dates Conrado Ambriz II MD Primary Care Provider Active Start: April 19, 2025 End: April 19, 2025 Nayan Dominguez APRN Attending Provider Active Start: April 19, 2025 End: April 19, 2025 Resident Care Director Relationship Specialty Start Date End Date Conrado Ambriz MD [address] [place] [address] PCP - General Internal Medicine 01/19/23 Conrado Ambriz MD [address] [place] [address] PCP - ACO Reach 10/28/23 Merna Lr LPN [address] [place] [address] 11/16/24 Resident Care Director Relationship Specialty Start Date End Date Conrado Ambriz MD [address] [place] [address] PCP - General Internal Medicine 01/19/23 Conrado Ambriz MD [address] [place] [address] PCP - ACO Reach 10/28/23 Merna Lr LPN [address] [place] [address] 3/21/25 Goals (unrecognized section and content) Goals may [...] BE BASED ON THE PRIMARY CLINICAL RECORDS. [facility] [employer] [facility]. provides no warranty or guarantee of the accuracy or completeness of information in this document.
== END 2025-05-01 13:01 | disposition home or self-care (01) ==
LOC: US 13:00
PROVIDERS: PCP Internal Medicine; Visit Provider Nurse Practitioner Family
DX: E04.1 Nontoxic single thyroid nodule (principal)
CPT/HCPCS: 76536

== ENCOUNTER 2025-07-22 08:46 | Emergency (ER) | payer MEDICARE, OTHER, SELFPAY ==
[2025-07-22 09:03] VITALS: BP 165/73; PULSE 88; TEMP 36.1; O2SAT 95; BMI 24.0
--- NOTE | 2025-07-22 09:21 | XR_ITS ---
The [address] [address] Patient Name: JAMES WEAVER MRN: [id number] date: 1935 Sex: F Assigned Patient Location: ED.MAIN Current Patient Location: ED.MAIN Accession/Order Number: [id number] Exam Date: 07/22/2025 09:55 Report Date: 07/22/2025 10:32 At the request of: SARAH DOMÍNGUEZ MD Procedure: XR shoulder RT min 2V RIGHT SHOULDER - 3 views CLINICAL HISTORY: Right shoulder pain following fall COMPARISON: None AP, Y and Grashey views were obtained. The bony structures are osteopenic. There are 6 anchor pins at the femoral head. There is no definite acute fracture or dislocation. There is superior subluxation the humeral head with loss of the acromiohumeral interval compatible with rotator cuff disease. There is hypertrophy at the acromioclavicular joint. Hypertrophy and joint space narrowing are also visualized at the glenohumeral joint. There are no significant soft tissue abnormalities. XR/XR shoulder RT min 2V IMPRESSION: OSTEOPENIA AND DEGENERATIVE CHANGES. POSTOPERATIVE CHANGES AND SUSPECTED ROTATOR CUFF DISEASE. NO ACUTE BONY INJURY. Impression dictated by: Analy Odell M.D. 07/22/2025 10:32 AM Dictation Location: [place] [address] Electronically authenticated by: [id number] Y Date: 07/22/2025 10:32
--- NOTE | 2025-07-22 09:21 | CT_ITS ---
The [address] [address] Patient Name: JAMES WEAVER MRN: [id number] date: 1935 Sex: F Assigned Patient Location: ED.MAIN Current Patient Location: ED.MAIN Accession/Order Number: [id number] Exam Date: 07/22/2025 09:47 Report Date: 07/22/2025 10:20 At the request of: SARAH DOMÍNGUEZ MD Procedure: CT head/brain wo con CT BRAIN WITHOUT CONTRAST: CLINICAL HISTORY: fall. Right hip and shoulder pain. COMPARISON: 04/12/2025 TECHNIQUE: Contiguous axial unenhanced images were obtained through the brain. This CT exam was performed using one or more following dose reduction techniques: Automated exposure control, adjustment of the mA and/or kV according to patient size, or use of iterative reconstruction technique. FINDINGS: There is mild atrophy. Physiologic basal ganglia calcifications are present. The ventricles are within normal limits for size and position. Microvascular changes are again seen. There are no additional areas of abnormal attenuation. There is no hemorrhage, mass effect or extra-axial collections. Potential empty sella is noted. The calvarium is intact. The imaged paranasal sinuses and mastoid air cells are clear. There is carotid siphon plaque. There is mild scalp swelling and hematoma in the parietal region on the right. CT/CT head/brain wo con IMPRESSION: ATROPHY AND SMALL VESSEL ISCHEMIC CHANGES. NO ACUTE INTRACRANIAL TRAUMA. Impression dictated by: Analy Odell M.D. 07/22/2025 10:20 AM Dictation Location: [place] [address] Electronically authenticated by: [id number] Y Date: 07/22/2025 10:20
--- NOTE | 2025-07-22 09:22 | ED.GENADUL1 ---
HPI HPI - General Adult General Chief complaint: Extremity Injury, Lower Stated complaint: FALL 07/20- HIP AND SHOULDER PAIN Time Seen by Provider: 07/22/25 08:50 Source: patient Mode of arrival: Wheelchair History of Present Illness HPI narrative: 89-year-old female presents to the emergency department for pain in her right hip, right shoulder, and her head. 2 days ago she fell when she lost balance. She had stoop down to put toilet paper away in a cupboard and she lost her balance and she fell and she hit these areas. No LOC or vomiting. She has been able to ambulate with her walker. Related Data Home Medications ?Medication ?Instructions ?Recorded ?Confirmed amlodipine 5 mg tablet 5 mg PO DAILY 07/25/23 07/22/25 benazepril 20 mg tablet 20 mg PO DAILY 07/25/23 07/22/25 gabapentin 300 mg capsule 300 mg PO BID 07/25/23 07/22/25 levothyroxine 50 mcg capsule 50 mcg PO DAILY 07/25/23 07/22/25 ropinirole 0.25 mg tablet 0.25 mg PO DAILY 07/25/23 07/22/25 sitagliptin phosphate 100 mg 100 mg PO DAILY 07/25/23 07/22/25 tablet (Januvia) cholecalciferol (vitamin D3) 25 25 mcg PO DAILY 04/12/25 07/22/25 mcg (1,000 unit) capsule glipizide 5 mg tablet 5 mg PO DAILY 04/12/25 07/22/25 lubiprostone 8 mcg capsule 8 mcg PO DAILY 04/12/25 07/22/25 (Amitiza) meloxicam 7.5 mg tablet 7.5 mg PO DAILY 04/12/25 07/22/25 omeprazole 40 mg capsule,delayed 40 mg PO DAILY 04/12/25 07/22/25 release ropinirole 1 mg tablet 0.5 mg PO DAILY 04/12/25 07/22/25 aspirin 81 mg tablet,delayed 81 mg PO DAILY 07/22/25 07/22/25 release (Adult Aspirin Regimen) Allergies Allergy/AdvReac Type Severity Reaction Status Date / Time hyaluronic acid (From Allergy swelling Verified 07/22/25 11:57 ORTHOVISC) moxifloxacin (From Avelox) Allergy Hives Verified 07/22/25 11:57 simvastatin Allergy Vomiting Verified 07/22/25 11:57 Opioid HPI Opioid Management Most Recent Opioid Data: Last Pain Scale 10 Today, 09:11 Review of Systems ROS Narrative A ten point review of systems is negative except as noted above. PFSH PFSH Social History Little interest or pleasure in doing things: not at all Feeling down, depressed, or hopeless: not at all Exam Narrative Exam Narrative: Nurses note and vital signs reviewed General:The patient appears in no apparent distress. Skin:Warm, dry, no pallor noted.There is no rash noted. Head:Normocephalic, hematoma present on the right side of her scalp just lateral to the vertex. Eye: Normal conjunctiva, no drainage Ears, Nose, Mouth, and Throat: oral mucosa is moist. Nares patent. Cardiovascular:Regular Rate and Rhythm Respiratory:Patient is in no distress, no accessory muscle use, lungs are clear to auscultation, no wheezing, rales or rhonchi Back:non-tender GI: Soft and nontender Musculoskeletal: She has bruising on her right hip. Tenderness present as well. Bruising present also on the right shoulder laterally and she is reluctant to move the shoulder. Neurological: Awake and alert and oriented Psychiatric:Cooperative Constitutional Vital Signs, click to edit/add: Last Vital Signs Temp 97.0 F L 07/22/25 09:03 Pulse 88 07/22/25 09:03 Resp 18 07/22/25 09:03 BP 165/73 H 07/22/25 09:03 Pulse Ox 95 07/22/25 09:03 O2 Del Method Room Air 07/22/25 09:03 Course Vital Signs Vital signs: Vital Signs Temperature 97.0 F L 07/22/25 09:03 Pulse Rate 88 07/22/25 09:03 Respiratory Rate 18 07/22/25 09:03 Blood Pressure 165/73 H 07/22/25 09:03 Pulse Oximetry 95 07/22/25 09:03 Oxygen Delivery Method Room Air 07/22/25 09:03 Temperature 97.0 F L 07/22/25 09:03 Pulse Rate 88 07/22/25 09:03 Respiratory Rate 18 07/22/25 09:03 Blood Pressure 165/73 H 07/22/25 09:03 Pulse Oximetry 95 07/22/25 09:03 Oxygen Delivery Method Room Air 07/22/25 09:03 Medical Decision Making MDM Narrative Medical decision making narrative: Right subcapital hip fracture is confirmed on CAT scan per radiologist with possible acetabular fracture as well. Shoulder shows no acute fracture. Findings are discussed with the patient and her family. Case discussed with Dr. Núñez who accepts the patient at [facility] and the patient will be transferred there, admitted to the hospitalist. She is agreeable and stable for transfer. She was offered pain medication initially but does not want any. Differential Diagnosis Differential Diagnosis: Contusion, fracture Lab Data Labs: Lab Results 07/22/25 Range/Units 12:20 WBC 12.7 H (4.0-11.0) 10^3/uL RBC 4.79 (4.20-5.40) 10^6/uL Hgb 13.9 (12.0-16.0) g/dL Hct 42.4 (36.0-48.0) % MCV 88.5 (81.0-99.0) fL MCH 29.0 (26.7-34.0) pg MCHC 32.8 (29.9-35.2) g/dL RDW 14.3 (11.0-15.0) % Plt Count 206 (150-450) 10^3/uL MPV 10.4 (9.5-13.5) fL Neut % (Auto) 80.0 H (43.0-75.0) % Lymph % (Auto) 12.4 L (20.5-60.0) % [place] % (Auto) 6.3 (1.7-12.0) % Eos % (Auto) 0.4 L (0.9-7.0) % Baso % (Auto) 0.3 (0.2-2.0) % Neut # (Auto) 10.2 H (1.4-6.5) 10^3/uL Lymph # (Auto) 1.6 (1.2-3.8) 10^3/uL [place] # (Auto) 0.8 (0.3-0.8) 10^3/uL Eos # (Auto) 0.1 (0.0-0.7) 10^3/uL Baso # (Auto) 0.0 (0.0-0.1) 10^3/uL Abs Immat Gran (auto) 0.07 H (0.00-0.03) 10^3/uL Imm/Tot Granulo (auto) 0.6 H (0.0-0.5) % Sodium 138 (136-145) mmol/L Potassium 4.2 (3.5-5.1) mmol/L Chloride 103 (98-107) mmol/L Carbon Dioxide 29.5 (21.0-32.0) mmol/L Anion Gap 9.7 BUN 15.0 (7.0-18.0) mg/dL Creatinine 0.72 (0.55-1.02) mg/dL Est GFR ( Amer) >60 (>=60 mL/min/1.73m^2) Est GFR (Non-Af Amer) >60 (>=60 mL/min/1.73m^2) BUN/Creatinine Ratio 20.8 Glucose 236 H (74-106) mg/dL Calcium 9.2 (8.5-10.1) mg/dL Imaging Data X-ray right hip: Radiologist's impression: ITS Impressions Head CT 07/22/25 09:21 IMPRESSION: ATROPHY AND SMALL VESSEL ISCHEMIC CHANGES. NO ACUTE INTRACRANIAL TRAUMA. Impression dictated by: Analy Odell M.D. 07/22/2025 10:20 AM Dictation Location: [place] [address] Electronically authenticated by: [id number] Y Date: 07/22/2025 10:20 Hip/Pelvis X-Ray 07/22/25 09:21 IMPRESSION: Osteopenia and degenerative changes. RIGHT ANKLE - 3 views COMPARISON: None AP, lateral and oblique views were obtained. There is osteopenia. There is no evidence of fracture or dislocation. The talar dome is intact. There are is minor degenerative change at the tips of the malleoli. There are no significant soft tissue abnormalities. Atherosclerotic disease is present. IMPRESSION: NO ACUTE BONY INJURY. RIGHT FOOT - 3 views COMPARISON: 01/01/2021 AP, lateral and oblique views were obtained. There is no evidence of fracture or dislocation. Minor degenerative change is visualized at the first metacarpal phalangeal joint. There are posterior and plantar calcaneal spurs. A similar rounded soft tissue calcification is again seen near the second metatarsal. There are no new soft tissue abnormalities. IMPRESSION: NO ACUTE BONY INJURY. Impression dictated by: Analy Odell M.D. 07/22/2025 10:39 AM Dictation Location: [place] [address] Electronically authenticated by: [id number] Y Date: 07/22/2025 10:39 ADDENDUM: 07/22/25 1145 IMPRESSION: OSTEOPENIA AND DEGENERATIVE CHANGES. SUSPECTED RIGHT SUBCAPITAL HIP FRACTURE. Impression dictated by: Analy Odell M.D. 07/22/2025 11:42 AM Dictation Location: [place] [address] Patient Electronically authenticated by: [id number] Y Date: 07/22/2025 11:42 Name: JAMES WEAVER MRN: [id number] date: 1935 Sex: F Assigned Patient Location: ED.MAIN Current Patient Location: Accession/Order Number: [id number] Exam Date: 07/22/2025 09:55 Report Date: 07/22/2025 11:42 At the request of: SARAH DOMÍNGUEZ MD Procedure: XR ankle RT min 3V [place] [address] Patient Name: JAMES WEAVER MRN: [id number] date: 1935 Sex: F Assigned Patient Location: ED.MAIN Current Patient Location: ED.MAIN Accession/Order Number: [id number] Exam Date: 07/22/2025 09:55 Report Date: 07/22/2025 10:39 At the request of: SARAH DOMÍNGUEZ MD Procedure: XR ankle RT min 3V CLINICAL DATA: Patient fell and has pain at the right hip, foot and ankle RIGHT HIP WITH AP PELVIS - 3 views COMPARISON: CT 11/23/2018 AP view of the pelvis as well as AP and frog-lateral views of the right hip were obtained. There is osteopenia. A suspected mildly affected fracture is seen at the lateral right femoral neck. No additional acute fracture or dislocation is noted. Recurrent stenosis are symmetric. There is minor marginal spurring. There are enthesophytes at the o crests, greater trochanters and ischial tuberosities. The SI joints show mild sclerosis. There are postoperative changes of the lower imaged lumbar spine. No soft tissue abnormalities are present. IMPRESSION: Osteopenia and degenerative changes. RIGHT ANKLE - 3 views COMPARISON: None AP, lateral and oblique views were obtained. There is osteopenia. There is no evidence of fracture or dislocation. The talar dome is intact. There are is minor degenerative change at the tips of the malleoli. There are no significant soft tissue abnormalities. Atherosclerotic disease is present. IMPRESSION: NO ACUTE BONY INJURY. RIGHT FOOT - 3 views COMPARISON: 01/01/2021 AP, lateral and oblique views were obtained. There is no evidence of fracture or dislocation. Minor degenerative change is visualized at the first metacarpal phalangeal joint. There are posterior and plantar calcaneal spurs. A similar rounded soft tissue calcification is again seen near the second metatarsal. There are no new soft tissue abnormalities. IMPRESSION: NO ACUTE BONY INJURY. Impression dictated by: Analy Odell M.D. 07/22/2025 10:39 AM Dictation Location: [facility] Electronically authenticated by: [id number] Y Date: 07/22/2025 10:39 Shoulder X-Ray 07/22/25 09:21 IMPRESSION: OSTEOPENIA AND DEGENERATIVE CHANGES. POSTOPERATIVE CHANGES AND SUSPECTED ROTATOR CUFF DISEASE. NO ACUTE BONY INJURY. Impression dictated by: Analy Odell M.D. 07/22/2025 10:32 AM Dictation Location: [facility] Electronically authenticated by: [id number] Y Date: 07/22/2025 10:32 Ankle X-Ray 07/22/25 09:48 IMPRESSION: Osteopenia and degenerative changes. RIGHT ANKLE - 3 views COMPARISON: None AP, lateral and oblique views were obtained. There is osteopenia. There is no evidence of fracture or dislocation. The talar dome is intact. There are is minor degenerative change at the tips of the malleoli. There are no significant soft tissue abnormalities. Atherosclerotic disease is present. IMPRESSION: NO ACUTE BONY INJURY. RIGHT FOOT - 3 views COMPARISON: 01/01/2021 AP, lateral and oblique views were obtained. There is no evidence of fracture or dislocation. Minor degenerative change is visualized at the first metacarpal phalangeal joint. There are posterior and plantar calcaneal spurs. A similar rounded soft tissue calcification is again seen near the second metatarsal. There are no new soft tissue abnormalities. IMPRESSION: NO ACUTE BONY INJURY. Impression dictated by: Analy Odell M.D. 07/22/2025 10:39 AM Dictation Location: [place] [address] Electronically authenticated by: [id number] Y Date: 07/22/2025 10:39 ADDENDUM: 07/22/25 1145 IMPRESSION: OSTEOPENIA AND DEGENERATIVE CHANGES. SUSPECTED RIGHT SUBCAPITAL HIP FRACTURE. Impression dictated by: Analy Odell M.D. 07/22/2025 11:42 AM Dictation Location: [place] [address] Patient Electronically authenticated by: [id number] Y Date: 07/22/2025 11:42 Name: JAMES WEAVER MRN: [id number] date: 1935 Sex: F Assigned Patient Location: ED.MAIN Current Patient Location: Accession/Order Number: [id number] Exam Date: 07/22/2025 09:55 Report Date: 07/22/2025 11:42 At the request of: SARAH DOMÍNGUEZ MD Procedure: XR ankle RT min 3V [place] [address] Patient Name: JAMES WEAVER MRN: [id number] date: 1935 Sex: F Assigned Patient Location: ED.MAIN Current Patient Location: ED.MAIN Accession/Order Number: [id number] Exam Date: 07/22/2025 09:55 Report Date: 07/22/2025 10:39 At the request of: SARAH DOMÍNGUEZ MD Procedure: XR ankle RT min 3V CLINICAL DATA: Patient fell and has pain at the right hip, foot and ankle RIGHT HIP WITH AP PELVIS - 3 views COMPARISON: CT 11/23/2018 AP view of the pelvis as well as AP and frog-lateral views of the right hip were obtained. There is osteopenia. A suspected mildly affected fracture is seen at the lateral right femoral neck. No additional acute fracture or dislocation is noted. Recurrent stenosis are symmetric. There is minor marginal spurring. There are enthesophytes at the o crests, greater trochanters and ischial tuberosities. The SI joints show mild sclerosis. There are postoperative changes of the lower imaged lumbar spine. No soft tissue abnormalities are present. IMPRESSION: Osteopenia and degenerative changes. RIGHT ANKLE - 3 views COMPARISON: None AP, lateral and oblique views were obtained. There is osteopenia. There is no evidence of fracture or dislocation. The talar dome is intact. There are is minor degenerative change at the tips of the malleoli. There are no significant soft tissue abnormalities. Atherosclerotic disease is present. IMPRESSION: NO ACUTE BONY INJURY. RIGHT FOOT - 3 views COMPARISON: 01/01/2021 AP, lateral and oblique views were obtained. There is no evidence of fracture or dislocation. Minor degenerative change is visualized at the first metacarpal phalangeal joint. There are posterior and plantar calcaneal spurs. A similar rounded soft tissue calcification is again seen near the second metatarsal. There are no new soft tissue abnormalities. IMPRESSION: NO ACUTE BONY INJURY. Impression dictated by: Analy Odell M.D. 07/22/2025 10:39 AM Dictation Location: [facility] Electronically authenticated by: [id number] Y Date: 07/22/2025 10:39 Foot X-Ray 07/22/25 09:48 IMPRESSION: Osteopenia and degenerative changes. RIGHT ANKLE - 3 views COMPARISON: None AP, lateral and oblique views were obtained. There is osteopenia. There is no evidence of fracture or dislocation. The talar dome is intact. There are is minor degenerative change at the tips of the malleoli. There are no significant soft tissue abnormalities. Atherosclerotic disease is present. IMPRESSION: NO ACUTE BONY INJURY. RIGHT FOOT - 3 views COMPARISON: 01/01/2021 AP, lateral and oblique views were obtained. There is no evidence of fracture or dislocation. Minor degenerative change is visualized at the first metacarpal phalangeal joint. There are posterior and plantar calcaneal spurs. A similar rounded soft tissue calcification is again seen near the second metatarsal. There are no new soft tissue abnormalities. IMPRESSION: NO ACUTE BONY INJURY. Impression dictated by: Analy Odell M.D. 07/22/2025 10:39 AM Dictation Location: [facility] Electronically authenticated by: [id number] Y Date: 07/22/2025 10:39 ADDENDUM: 07/22/25 1145 IMPRESSION: OSTEOPENIA AND DEGENERATIVE CHANGES. SUSPECTED RIGHT SUBCAPITAL HIP FRACTURE. Impression dictated by: Analy Odell M.D. 07/22/2025 11:42 AM Dictation Location: [place] [address] Patient Electronically authenticated by: [id number] Y Date: 07/22/2025 11:42 Name: JAMES WEAVER MRN: [facility]:[id number] date: 1935 Sex: F Assigned Patient Location: ED.MAIN Current Patient Location: ER Accession/Order Number: [id number] Exam Date: 07/22/2025 09:55 Report Date: 07/22/2025 11:42 At the request of: SARAH DOMÍNGUEZ MD Procedure: XR ankle RT min 3V [place] [address] Patient Name: JAMES WEAVER MRN: [facility]:[id number] date: 1935 Sex: F Assigned Patient Location: ED.MAIN Current Patient Location: ED.MAIN Accession/Order Number: [id number] Exam Date: 07/22/2025 09:55 Report Date: 07/22/2025 10:39 At the request of: SARAH DOMÍNGUEZ MD Procedure: XR ankle RT min 3V CLINICAL DATA: Patient fell and has pain at the right hip, foot and ankle RIGHT HIP WITH AP PELVIS - 3 views COMPARISON: CT 11/23/2018 AP view of the pelvis as well as AP and frog-lateral views of the right hip were obtained. There is osteopenia. A suspected mildly affected fracture is seen at the lateral right femoral neck. No additional acute fracture or dislocation is noted. Recurrent stenosis are symmetric. There is minor marginal spurring. There are enthesophytes at the o crests, greater trochanters and ischial tuberosities. The SI joints show mild sclerosis. There are postoperative changes of the lower imaged lumbar spine. No soft tissue abnormalities are present. IMPRESSION: Osteopenia and degenerative changes. RIGHT ANKLE - 3 views COMPARISON: None AP, lateral and oblique views were obtained. There is osteopenia. There is no evidence of fracture or dislocation. The talar dome is intact. There are is minor degenerative change at the tips of the malleoli. There are no significant soft tissue abnormalities. Atherosclerotic disease is present. IMPRESSION: NO ACUTE BONY INJURY. RIGHT FOOT - 3 views COMPARISON: 01/01/2021 AP, lateral and oblique views were obtained. There is no evidence of fracture or dislocation. Minor degenerative change is visualized at the first metacarpal phalangeal joint. There are posterior and plantar calcaneal spurs. A similar rounded soft tissue calcification is again seen near the second metatarsal. There are no new soft tissue abnormalities. IMPRESSION: NO ACUTE BONY INJURY. Impression dictated by: Analy Odell M.D. 07/22/2025 10:39 AM Dictation Location: [facility] Electronically authenticated by: [id number] Y Date: 07/22/2025 10:[address] 07/22/25 10:48 IMPRESSION: CONFIRMATION OF SUBCAPITAL RIGHT HIP FRACTURE. POSSIBLE ADDITIONAL FRACTURE INVOLVING THE PERIPHERY OF THE SUPERIOR RIGHT ACETABULUM. OSTEOPENIA AND DEGENERATIVE CHANGES. Impression dictated by: Analy Odell M.D. 07/22/2025 11:57 AM [facility]ictation [facility] Electronically authenticated by: [id number] Y Date: 07/22/2025 11:57 ECG Data Attestation: I personally reviewed and interpreted this ECG as follows: (EKG on my interpretation shows sinus rhythm with rate of 82 and no acute findings.) Discharge Plan Discharge Chief Complaint: Extremity Injury, Lower Clinical Impression: Fracture of right hip Patient Disposition: [facility] Time of Disposition Decision: 12:13 Discharge Location: [facility] Condition: Fair Mode of Transportation: EMS
--- NOTE | 2025-07-22 09:48 | XR_ITS ---
The [address] [address] Patient Name: JAMES WEAVER MRN: [id number] date: 1935 Sex: F Assigned Patient Location: ED.MAIN Current Patient Location: ED.MAIN Accession/Order Number: [id number] Exam Date: 07/22/2025 09:55 Report Date: 07/22/2025 10:39 At the request of: SARAH DOMÍNGUEZ MD Procedure: XR ankle RT min 3V CLINICAL DATA: Patient fell and has pain at the right hip, foot and ankle RIGHT HIP WITH AP PELVIS - 3 views COMPARISON: CT 11/23/2018 AP view of the pelvis as well as AP and frog-lateral views of the right hip were obtained. There is osteopenia. A suspected mildly affected fracture is seen at the lateral right femoral neck. No additional acute fracture or dislocation is noted. Recurrent stenosis are symmetric. There is minor marginal spurring. There are enthesophytes at the o crests, greater trochanters and ischial tuberosities. The SI joints show mild sclerosis. There are postoperative changes of the lower imaged lumbar spine. No soft tissue abnormalities are present. XR/XR foot RT min 3V IMPRESSION: Osteopenia and degenerative changes. RIGHT ANKLE - 3 views COMPARISON: None AP, lateral and oblique views were obtained. There is osteopenia. There is no evidence of fracture or dislocation. The talar dome is intact. There are is minor degenerative change at the tips of the malleoli. There are no significant soft tissue abnormalities. Atherosclerotic disease is present. IMPRESSION: NO ACUTE BONY INJURY. RIGHT FOOT - 3 views COMPARISON: 01/01/2021 AP, lateral and oblique views were obtained. There is no evidence of fracture or dislocation. Minor degenerative change is visualized at the first metacarpal phalangeal joint. There are posterior and plantar calcaneal spurs. A similar rounded soft tissue calcification is again seen near the second metatarsal. There are no new soft tissue abnormalities. IMPRESSION: NO ACUTE BONY INJURY. Impression dictated by: Aanly Odell M.D. 07/22/2025 10:39 AM Dictation Location: [place] [address] Electronically authenticated by: [id number] Date: 07/22/2025 10:39
--- NOTE | 2025-07-22 09:48 | XR_ITS ---
The [address] [address] Patient Name: JAMES WEAVER MRN: [id number] date: 1935 Sex: F Assigned Patient Location: ED.MAIN Current Patient Location: ED.MAIN Accession/Order Number: [id number] Exam Date: 07/22/2025 09:55 Report Date: 07/22/2025 10:39 At the request of: SARAH DOMÍNGUEZ MD Procedure: XR ankle RT min 3V CLINICAL DATA: Patient fell and has pain at the right hip, foot and ankle RIGHT HIP WITH AP PELVIS - 3 views COMPARISON: CT 11/23/2018 AP view of the pelvis as well as AP and frog-lateral views of the right hip were obtained. There is osteopenia. A suspected mildly affected fracture is seen at the lateral right femoral neck. No additional acute fracture or dislocation is noted. Recurrent stenosis are symmetric. There is minor marginal spurring. There are enthesophytes at the o crests, greater trochanters and ischial tuberosities. The SI joints show mild sclerosis. There are postoperative changes of the lower imaged lumbar spine. No soft tissue abnormalities are present. XR/XR ankle RT min 3V IMPRESSION: Osteopenia and degenerative changes. RIGHT ANKLE - 3 views COMPARISON: None AP, lateral and oblique views were obtained. There is osteopenia. There is no evidence of fracture or dislocation. The talar dome is intact. There are is minor degenerative change at the tips of the malleoli. There are no significant soft tissue abnormalities. Atherosclerotic disease is present. IMPRESSION: NO ACUTE BONY INJURY. RIGHT FOOT - 3 views COMPARISON: 01/01/2021 AP, lateral and oblique views were obtained. There is no evidence of fracture or dislocation. Minor degenerative change is visualized at the first metacarpal phalangeal joint. There are posterior and plantar calcaneal spurs. A similar rounded soft tissue calcification is again seen near the second metatarsal. There are no new soft tissue abnormalities. IMPRESSION: NO ACUTE BONY INJURY. Impression dictated by: Analy Odell M.D. 07/22/2025 10:39 AM Dictation Location: [place] [address] Electronically authenticated by: [id number] Date: 07/22/2025 10:39
--- OUTSIDE RECORDS SUMMARY | 2025-07-22 09:59 | XMS_ITS | CCD ---
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 Role Phone Sadiq Barton Unavailable Dante Renee Unavailable NILL, DR LOPEZ Attending Unavailable AMBRIZ, DR RODRÍGUEZ Consulting Unavailable AMBRIZ, DR RODRÍGUEZ Primary Care Unavailable NILL, DR LOPEZ Admitting Unavailable NILL, DR LOPEZ Consulting Unavailable AMBRIZ, DR RODRÍGUEZ Primary Care Unavailable NADERER, DR AKIKO Wheat Admitting Unavailable DEANN, DR JORGE LUIS Adair Consulting Unavailable NADERER, DR AKIKO Wheat Attending Unavailable BE, DR ADONAY Hu Consulting Unavailable ADAMS, DR DANTE Smith Consulting Unavailable NADERER, DR AKIKO Wheat Consulting Unavailable RUTLEDGE, ARNEL Consulting Unavailable RODRIGUEZ, WINHERMES Consulting Unavailable NASCIMENTO, DAYANNA Consulting Unavailable DITTY, SADIQ Consulting Unavailable DITTLeslie, SADIQ Attending Unavailable DISHEYLA, SADIQ Admitting Unavailable AMBRIZ, DR RODRÍGUEZ Primary [...] Care Provider MD Sadiq Barton Attending Provider [phone] Conrado Ambriz MD Primary Care Provider Conrado Ambriz MD Unavailable Sadiq Barton Admitting Unavailable Sadiq Barton Attending Unavailable Conrado Ambriz Primary Care Unavailable Conrado Ambriz Primary Care Unavailable Nayan Dominguez Admitting Unavailable Nayan Dominguez Attending Unavailable Conrado Ambriz II Primary Care Provider Nayan Dominguez APRN Attending Provider Koffi MCPHERSON, Kristel Unavailable Conrado Ambriz II Primary Care Provider Nayan Dominguez APRN Attending Provider Lr CLUTCH SPECIALIST, Merna Unavailable Unavailable Lr CLUTCH SPECIALIST, Merna Unavailable Conrado Ambriz II Primary Care Provider [phone] Nayan Dominguez APRN Attending Provider PREM MORALES Attending Unavailable ADONAY DIOP Attending Unavailable CONRADO AMBRIZ Attending Unavailable ERASMO ALVAREZ Attending Unavailable CONRADO AMBRIZ Referring Unavailable ERASMO ALVAREZ Referring Unavailable PREM MORALES Attending Unavailable ANALY HAMMOND Attending Unavailable CONRADO AMBRIZ Attending Unavailable PREM MORALES Attending Unavailable ADONAY DIOP Attending Unavailable ADONAY DIOP Attending Unavailable CONRADO AMBRIZ Attending Unavailable AZ PALOMARES Attending UnavailERASMO Yip Attending Unavailable CONRADO AMBRIZ Referring Unavailable PREM MORALES Attending Unavailable CONRADO AMBRIZ Attending Unavailable CONRADO AMBRIZ Attending Unavailable Allergies Allergy ClassificationReported Allergen(s)Allergy TypeDate of OnsetReaction(s) Facility (11 sources)Adhesive agentDrug hnhljcu25-55-6795Iyerlbp, Unknown Reaction, Rash [facility] (20 sources)CiprofloxacinDrug Cleuuyv39-27-0753FtpsBbxndcxwyKeenan Private Hospital (12 sources)HYLAN G-F 20Drug Dysesyw59-44-6930FabldbhqHlvstdvclBucyrus Community Hospital (20 sources)moxifloxacinDrug Mbohcuv80-42-5034ktkcuIrgtnoyxbSelect [facility] (12 sources)SimvastatinDrug Uxhcquk57-67-6577rmdakrq upset, Diarrhea/Vomiting, Diarrhea/Vomiting, stomach upsetCrystal Clinic Orthopedic [facility] (11 sources)TemazepamDrug Xvtaeoc97-00-3722llwz, sore mouthCrystal Clinic Orthopedic Center (1 source)CiprofloxacinDrug AllergyCleveland [facility] (1 source)HYLAN G-F 20Drug Hgeqsku27-36-4371GspCleveland [facility] (1 source)moxifloxacinDrug Ymukvdm18-88-6099KyyCleveland [facility] (1 source)SimvastatinDrug Gpcypqg62-84-0636YjiCleveland Clinic [facility]ository (10 sources)bandaidAllergy to qarncczfd33-93-1624GbfvVosavblxsKeenan Private Hospital (20 sources)CiprofloxacinDrug Ywffaks22-91-5098HmcfLOWP Healthcare (20 sources)metFORMINDrug Fedhycp19-71-4934RhyefdvuJMGC Healthcare (20 sources)SimvastatinAllergy to zazmgumln74-05-3156EQ intolerance, Nausea And VomitingSSM Health [facility] (20 sources)TemazepamAllergy to lyssblbql97-06-4436JwwkSEJO Healthcare (20 sources)Hylan G-F 20Propensity to adverse vfocvlbte46-03-1106VunmzqfoWRHC Healthcare (20 sources)Wound Dressing AdhesiveDrug Twcipdm95-74-2393TvayFIDH Healthcare Medications Current Medications MedicationDrug Class(es)DatesSig (Normalized)Sig (Original)amLODIPine 5 mg oral tablet (20 sources)Dihydropyridine Calcium Channel BlockerStart: 97-38-8577fwtl 1 tablet by mouth once dailyamLODIPine (Norvasc) 5 MG tablet Indications: Benign essential hypertension Take 1 tablet (5 mg) bymouth Daily 100 tablet 3 01/28/2025 Activetake 1 tablet by mouth every twenty-four hoursamLODIPine Besylate 5 MG 1 tablet Orally Once a day Activeamoxicillin 500 mg oral capsule (4 sources)Penicillin-class AntibacterialStart: 02-04-2025 End: 92-74-6296wcwt 1 capsule by mouth in the morning, then take 1 capsule by mouth in the evening, then take 1 capsule by mouth at bedtimeamoxicillin (Amoxil) 500 MG capsule Indications: Acute non-recurrent frontal sinusitis Take 1 capsule (500 mg) by mouth in the morning and 1 capsule (500 mg) in the evening and 1 capsule (500 mg) before bedtime. Do all this for 7 days. 21 capsule 02/04/2025 02/11/2025 ActiveStart: 10-25-2024 End: 14-79-8090ybfe 1 capsule by mouth in the morning, then take 1 capsule by mouth in the evening, then take 1 capsule by mouth at bedtimeamoxicillin (Amoxil) 500 MG capsule Indications: Acute non-recurrent frontal sinusitis Take 1 capsule (500 mg) by mouth in the morning and 1 capsule (500 mg) in the evening and 1 capsule (500 mg) before bedtime. Do all this for 10 days. 30 capsule 10/25/2024 11/04/2024 Activeaspirin 81 mg delayed release oral tablet (15 sources)Platelet Aggregation Inhibitor, Nonsteroidal Anti-inflammatory Drug Start: 56-57-5274Zdktzvi (Adult Low Dose Aspirin) 81 mg tablet,delayed release (DR/EC) Active 81 MG PO Daily April 19, 2025 12:00am Complies with drug therapyazelastine hydrochloride 0.137 mg/actuat metered dose nasal spray (12 sources)Histamine-1 Receptor AntagonistStart: 40-56-3322enza 2 spray(s) nasal route at bedtimeAzelastine HCl 137 MCG/SPRAY solution Indications: Environmental and seasonal allergies SPRAY 2 SPRAYS INTO EACH NOSTRIL IN THE MORNING AND BEFORE BEDTIME DIRECTED 90 mL 1 05/10/2025 ActiveStart: 04-18-2025 End: 19-80-8143nqwn 2 spray(s) nasal route in the morningazelastine (Astelin) 0.1 % nasal spray Indications: Environmental and seasonal allergies Administer2 sprays into each nostril in the morning and 2 sprays before bedtime. Use in each nostril as directed. 30 mL 2 04/18/2025 04/18/2026 Activeazithromycin 250 mg oral tablet (2 sources)Macrolide AntimicrobialStart: 11-29-2024 End: 22-77-6321sbzn 2 tablets by mouth once daily, then take 1 tablet by mouth once dailyazithromycin (Zithromax) 250 MG tablet Indications: Acute non- recurrent frontal sinusitis Take 2 tablets (500 mg) by mouth Daily for 1 day, THEN 1 tablet (250 mg) Daily for 4 days. 6 tablet 11/29/2024 12/04/2024 Activeb complex vitamins capsule (20 sources)take 1 capsule by mouth once dailyb complex vitamins capsule Take 1 capsule by mouth Daily Activetake 1 capsule by mouth in the morningb complex vitamins capsule Take 1 capsule by mouth in the morning. Activebaclofen 10 mg oral tablet (2 sources)gamma-Aminobutyric Acid-ergic Agonisttake 2 tablets by mouth once daily at mealtimeBaclofen 10 MG 2 tablets with food or milk Orally Once a day Activebenazepril hydrochloride 20 mg oral tablet (20 sources)Angiotensin Converting Enzyme InhibitorStart: 09-09-2021 End: 82-88-1043cppflgwhnv (Lotensin) 20 MG tablet Indications: Benign essential hypertension TAKE 1 TABLET DAILY 90 tablet 3 12/19/2024 Activetake 1 tablet by mouth every twenty-four hoursBenazepril HCl 20 MG 1 tablet Orally Once a day ActiveCalcium (20 sources)Phosphate Binder, Calciumtake 1 tablet by mouth once dailyCalcium 250 MG capsule Take 1 tablet by mouth Daily ActiveCalcium + D3 Activecefdinir 300 mg oral capsule (4 sources)Cephalosporin AntibacterialStart: 08-01-2024 End: 22-92-5461obwi 1 capsule by mouth in the morningcefdinir (Omnicef) 300 MG capsule Indications: Acute cystitis without hematuria , Acute non-recurrent sinusitis, unspecified location Take 1 capsule (300 mg) by mouth in the morning and 1 capsule (300 mg) before bedtime. Do all this for 7 days. 14 capsule 08/01/2024 08/08/2024 ActiveStart: 06-11-2024 End: 20-14-5191krkm 1 capsule by mouth in the morningcefdinir (Omnicef) 300 MG capsule Indications: Acute non-recurrent sinusitis, unspecified location Take 1 capsule (300 mg) by mouth in the morning and 1 capsule (300 mg) before bedtime. Do all this for 7 days. 14 capsule 06/11/2024 06/18/2024 Activecinnamon preparation 500 mg oral tablet (2 sources)Non-Standardized Food Allergenic ExtractCinnamon 500 MG as directed Orally ActivediphenhydrAMINE (2 sources)Histamine-1 Receptor AntagonistBenadryl ActiveEye Vitamins (2 sources)Eye Vitamins Activegabapentin 300 mg oral capsule (20 sources)Anti-epileptic AgentStart: 97-74-1326xujx 1 capsule by mouth in the morninggabapentin (Neurontin) 300 MG capsule Indications: Type 2 diabetes mellitus with peripheral neuropathy (HCC) Take 1 capsule (300 mg) by mouth in the morning and 1 capsule (300 mg) before bedtime. 200capsule 3 01/28/2025 Activetake 1 capsule by mouth every twenty-four hoursGabapentin 300 MG 1 capsule Orally Once a day ActiveglipiZIDE 5 mg oral tablet (20 sources)SulfonylureaStart: 90-11-1228ibsj 1 tablet by mouth once daily at mealtime, then take 2 tablets by mouth at mealtimeglipiZIDE (Glucotrol) 5 MG tablet Indications: Type 2 diabetes mellitus with peripheral neuropathy (HCC) Take 1 tablet (5 mg) by mouth Daily with meals AND 2 tablets (10 mg) in the evening. Take withmeals. 300 tablet 3 03/19/2025 ActiveStart: 47-87-5967sjdv 1 tablet by mouth once daily at mealtime, then take 2 tablets by mouth at mealtime glipiZIDE (Glucotrol) 5 MG tablet Indications: Type 2 diabetes mellitus with peripheral neuropathy (CMS/HCC) Take 1 tablet (5 mg) by mouth Daily with meals AND 2 tablets (10 mg) in the evening. Take with meals. 300 tablet 3 02/04/2025 ActiveStart: 75-11-9875bqyz 1 tablet by mouth once daily at mealtime, then take 2 tablets by mouth at mealtimeglipiZIDE (Glucotrol) 5 MG tablet Indications: Type 2 diabetes mellitus with peripheral neuropathy (CMS/HCC) Take 1 tablet (5 mg) by mouth Daily with meals AND 2 tablets (10 mg) in the evening. Take with meals. 300 tablet 3 02/04/2025 ActiveStart: 01-28-2025 End: 52-18-4575skdt 1 tablet by mouth in the morningglipiZIDE (Glucotrol) 5 MG tablet Indications: Type 2 diabetes mellitus with peripheral neuropathy ( CMS/HCC) Take 1 tablet (5 mg) by mouth in the morning and 1 tablet (5 mg) in the evening. Take before meals. 200 tablet 3 01/28/2025 02/04/2025 Discontinued (Reorder)Start: 01-39-8159wwzh 1 tablet by mouth in the morningglipiZIDE (Glucotrol) 5 MG tablet Take 5 mg by mouth in the morning and 5 mg in the evening. Take before meals. 09/19/2024 ActiveStart: 05-09-2024 End: 26-89-8650smsu 1 tablet by mouth once dailyglipiZIDE (Glucotrol) 5 MG tablet Take 5 mg by mouth 1 (one) time each day 05/09/2024 07/02/2024 Dis continued (Other)Start: 73-16-3579gfmr 2 tablets by mouth once dailyGlipizide 5 mg tablet Active 10 MG PO Daily May 09, 2024 12:00am Complies with drug therapyStart: 37-78-9046wfow 10 mg by mouth once dailyGlipizide Active 10 MG PO Daily May 09, 2024 12:00amhydrocortisone valerate 2 mg/ml topical cream (2 sources)CorticosteroidHydrocortisone Valerate 0.2 % 1 application Externally Once a day Activehydrocortisone acetate 25 mg/ml / pramoxine hydrochloride 10 mg/ml rectal cream (1 source)CorticosteroidStart: 26-85-1730Fubpxfhrgslpcq-Pramoxine (Analpram-Hc) 2.5-1 % cream Active 1 APPLIC NE 3 to 4 times per day as needed for hemorrhoids June 14, 2025 12:00am Complies with drug therapylevothyroxine sodium 0.05 mg oral tablet (20 sources)l-ThyroxineStart: 09-09-2021 End: 06-09-1287wypxhkrlosktb (Synthroid, Levoxyl) 50 MCG tablet Indications: Acquired hypothyroidism TAKE 1 TABLETDAILY 90 tablet 3 12/19/2024 Activetake 1 tablet by mouth once daily in the morningSynthroid 50 MCG 1 tablet in the morning on an empty stomach Orally Once a day Activeloperamide hydrochloride 2 mg oral tablet (4 sources)Opioid AgonistStart: 05-23-8392kzvq 1 tablet by mouth every twenty- four hoursLoperamide HCl 2 MG 1 tablet as needed Orally daily for 30 days Jul, Activetake 1 tablet by mouth every six hoursImodium A-D 2 MG 1 tablet as needed Orally Four times a day Activeloratadine 10 mg oral tablet (9 sources)Start: 04-25-2025 End: 07-83-1544sowk 1 tablet by mouth once dailyloratadine (Claritin) 10 MG tablet Indications: Environmental and seasonal allergies TAKE 1 TABLET (10 MG) BY MOUTH DAILY. 90 tablet 1 05/17/2025 08/15/2025 Activelubiprostone 0.008 mg oral capsule (20 sources)Chloride Channel ActivatorStart: 06-14-2025 End: 42-42-9535gkdg 1 capsule by mouth twice dailyLubiprostone 8 mcg capsule Active 8 MCG PO Twice daily 60 30 2 June 14, 2025 10:37am Irritablebowel syndrome with constipation Irritable bowel syndrome with constipation Complies with drug therapyStart: 10-15-2024 End: 91-57-8565xnbe 1 capsule by mouth twice dailyLubiprostone (Amitiza) 24 mcg capsule Discontinued 24 MCG PO Twice daily 180 90 3 October 15, 2024 1:00am April 19, 2025 10:10amStart: 01-31-2497vyvi 1 capsule by mouth twice daily Lubiprostone (Amitiza) 24 mcg capsule Active 24 MCG PO Twice daily 180 90 October 15, 2024 1:00amStart: 74-27-6252fvte 1 capsule by mouth twice daily Lubiprostone (Amitiza) 24 mcg capsule Active 24 MCG PO Twice daily 180 90 October 15, 2024 12:00amStart: 07-24-2024 End: 33-21-0535curs 1 capsule by mouth twice dailyLubiprostone (Amitiza) 8 mcg capsule Discontinued 8 MCG PO Twice daily 180 90 July 24, 2024 2:35pm October 15, 2024 11:39amStart: 07-24-2024 End: 66-73-2380wfis 1 capsule by mouth twice dailyLubiprostone (Amitiza) 8 mcg capsule Discontinued 8 MCG PO Twice daily 180 90 July 24, 2024 1:35pm October 15, 2024 10:39amStart: 45-92-1323xggq 1 capsule by mouth twice daily Lubiprostone (Amitiza) 8 mcg capsule Active 8 MCG PO Twice daily 180 90 July 24, 2024 1:35pmStart: 07-24-2024 End: 80-43-9839abpn 1 capsule by mouth twice dailyLubiprostone (Amitiza) 8 mcg capsule Discontinued 8 MCG PO Twice daily 180 90 July 24, 2024 2:34pm July 24, 2024 2:36pmStart: 07-24-2024 End: 14-60-1578rxnq 1 capsule by mouth twice dailyLubiprostone (Amitiza) 8 mcg capsule Discontinued 8 MCG PO Twice daily 180 90 July 24, 2024 1:34pm July 24, 2024 1:36pmStart: 06-20-2024 End: 33-80-1009xcqk 1 capsule by mouth twice dailyLubiprostone (Amitiza) 8 mcg capsule Discontinued 8 MCG PO Twice daily 180 90 July 2442:35pm October 15, 2024 11:39amStart: 06-20-2024 End: 17-35-7839vqlq 1 capsule by mouth twice dailyLubiprostone (Amitiza) 8 mcg capsule Discontinued 8 MCG PO Twice daily 180 90 June 20, 2024 12:00am July 24, 2024 2:35pmStart: 06-20-2024 End: 32-10-2819fpbv 1 capsule by mouth twice dailyLubiprostone (Amitiza) 8 mcg capsule Discontinued 8 MCG PO Twice daily 180 90 June 19, 2024 11:00pm July 24, 2024 1:35pmStart: 37-39-0809yzbi 1 capsule by mouth twice daily Lubiprostone (Amitiza) 8 mcg capsule Active 8 MCG PO Twice daily 180 90 June 20, 2024 12:00ammeloxicam 7.5 mg oral tablet (20 sources)Nonsteroidal Anti-inflammatory DrugStart: 01-09-2024 End: 94-84-1616hqbklwcfp (Mobic) 7.5 MG tablet Indications: Degenerative disc disease, lumbar TAKE 1 TABLET DAILY 90 tablet 3 12/19/2024 Activeomeprazole 40 mg delayed release oral capsule (20 sources)Proton Pump InhibitorStart: 08-01-2024 End: 67-30-1907qqff 1 capsule by mouth before mealtimeomeprazole (PriLOSEC) [address] capsule Indications: Gastroesophageal reflux disease, 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 esophagitis present Take 1 capsule (40 mg) by mouth in the morning. Take before meals. Do not crush or chew.. 90 capsule 3 08/31/2024 08/31/2025 Active Omeprazole 40 mg capsule,delayed release(DR/EC) (4 sources)Start: 94-08-0019Cwekhnnrxy 40 mg capsule,delayed release(DR/EC) Active 40 MG PO October 03, 2024 1:00amStart: 85-19-5189Ixhfhgtpih 40 mg capsule,delayed release(DR/EC) Active 40 MG PO October 03, 2024 12:00am potassium chloride 10 meq extended release oral tablet (2 sources)take 1 tablet by mouth every twelve hoursPotassium Chloride ER 10 MEQ 1 tablet with food Orally Twice a day Activeprobiotic (2 sources)probiotic ActiverOPINIRole 1 mg oral tablet (20 sources)Nonergot Dopamine AgonistStart: 05-15-3356pPDDUUKieb (Requip) 1 MG tablet Indications: Restless legs syndrome (RLS) TAKE ONE-HALF (1/2) TABLET DAILY 45 tablet 3 01/28/2025 ActiveStart: 10-25-2024 End: 53-98-3194lsce 0.5 tablet by mouth once dailyrOPINIRole (Requip) 1 MG tablet Indications: Restless Leg Syndrome Take 0.5 tablets (0.5 mg) by mouth Daily 45 tablet 10/25/2024 01/23/2025 ActiveStart: 01-09-2024 End: 47-58-7327efns 1 tablet by mouth once daily at bedtimeRopinirole 1 mg tablet Active 1 MG PO Daily at bedtime April 16, 2024 12:00am Complies with drugtherapyStart: 09-09-2021 End: 85-79-1653muva 2 tablets by mouth once daily at bedtimeRopinirole 0.25 mg tablet Discontinued 0.5 MG PO Daily at bedtime September 09, 2021 1:00am April 16, 2024 10:10amStart: 09-09-2021 End: 73-51-2036tnjb 0.5 mg by mouth once daily at bedtimeRopinirole Discontinued 0.5 MG PO Daily at bedtime September 09, 2021 1:00am April 16, 2024 10:10am take 2 tablets by mouth every twenty-four hoursrOPINIRole HCl 0.25 MG 2 tablets Orally Once a day ActiveSITagliptin 100 mg oral tablet (20 sources)Dipeptidyl Peptidase 4 InhibitorStart: 07-04-2023 End: 77-56-9665vfev 1 tablet by mouth once dailyJanuvia 100 MG tablet Indications: Type 2 diabetes mellitus with other neurologic complication, with out long-term current use of insulin (HCC) TAKE ONE TABLET BY MOUTH EVERY DAY 90 tablet 1 04/22/2025 ActiveSuper Stress B-Complex CR (2 sources)Super Stress B-Complex CR Activetriamcinolone acetonide 1 mg/ml topical cream (20 sources)CorticosteroidStart: 25-49-3660ydukrnrffqzxi (Kenalog) 0.1 % cream Indications: Psoriasis Apply topically 2 (two) times a day 454 g 1 11/29/2024 ActiveStart: 04-16-2024 End: 67-89-6665udey 1 spray(s) nasal route once dailyTriamcinolone Acetonide (Nasacort) 55 mcg aerosol,spray Discontinued 1 SPRAY INTRANASAL Daily April 16, 2024 12:00am May 09, 2024 8:53am FreeTextSi spray in each nostril Nasally Once aday; Note: Source Status: Taking; Provider: Oralia Babcock ( )Start: 08-19-2023 End: 32-78-3499bxgxhnvwrytji (Kenalog) 0.1 % cream APPLY TO TRUNK,ARMS, AND LEGS, TWICE A DAY 08/19/2023 11/29/2024 Discontinued (Reorder)take 1 spray(s) nasal route once dailyNasacort Allergy 24HR 55 MCG/ACT 1 spray in each nostril Nasally Once a day ActiveVitamin A 2400 MCG (8000 UT) (2 sources)Vitamin A 2400 MCG (8000 UT) as directed Orally ActiveVitamin B Complex (4 sources)Start: 06-26-3166ztzd 1 tablet by mouth once dailyVitamin B Complex Active 1 TAB PO Daily September 09, 2021 1:00amVitamin B Complex Tablet (6 sources)Start: 16-11-1228zdpd 1 tablet by mouth once dailyVitamin B Complex Tablet Active 1 TAB PO Daily September 09, 2021 1:00am Complies with drug therapyStart: 59-74-2215lamd 1 tablet by mouth once dailyVitamin B Complex Tablet Active 1 TAB PO Daily September 09, 2021 1:00amStart: 59-44-5246iius 1 tablet by mouth once dailyVitamin B Complex Tablet Active 1 TAB PO Daily September 09, 2021 12:00amVitamin C 1000 MG (2 sources)take 1 tablet by mouth once dailyVitamin C 1000 MG 1 tablet Orally Once a day ActiveVitamin E 400 UNIT (2 sources)take 1 capsule by mouth once dailyVitamin E 400 UNIT 1 capsule Orally Once a day Active Completed/Discontinued Medications MedicationDrug Class(es)DatesSig (Normalized)Sig (Original)8 hr acetaminophen 650 mg extended release oral tablet (10 sources)Start: 09-09-2021 End: 78-98-3334Yufwkxfkbwsan (Tylenol 8 Hour) 650 mg Tablet Extended Release Discontinued 1300 MG PO Twice daily September 09, 2021 1:00am April 16, 2024 10:11amascorbic acid 226 mg / beta carotene 64795 unt / cuprous oxide 0.8 mg / dl-alpha tocopheryl yalqeoj615 unt / zinc oxide 34.8 mg oral capsule (2 sources)Vitamin CStart: 09-09-2021 End: 50-19-3673hdmi 2 capsules by mouth once dailyVitamins A,C,B-Lhad-Cvvzai (Preservision Areds) 14,320-226-200 qplw-be-sbgs Capsule Discontinued 2 CAP PO Daily September 09, 2021 1:00am April 16, 2024 10:94cwKyn4913-Ytp Qfb-Vday-Zoz-Asb-C (9 sources)Osmotic Laxative, Vitamin CStart: 04-16-2024 End: 43-33-7132cntz 1 dose by mouth once zrkvzPhd9381-Wnh Xuo-Lunf-Lig-Asb-C (Plenvu) 140-9-5.2 gram powder in packet, sequential Discontinued 140 ML PO .COMPLEX 1 1 0 April 16, 2024 12:00am June 20, 2024 11:13am Bowel Prep First dose at4pm the day before colonoscopy, Second dose at 11pm the night before the colonoscopyStart: 04-16-2024 End: 64-27-5590chul 1 dose by mouth once zfztyHzq8505-Upn Lnx-Feiv-Wdv-Asb-C (Plenvu) 140-9-5.2 gram powder in packet, sequential Discontinued 140 ML PO .COMPLEX 1 1 April 15, 2024 11:00pm June 20, 2024 10:13am First dose at 4pm the day before colonoscopy, Second dose at 11pm the night before the colonoscopyStart: 04-16-2024 End: 39-86-5838txpd 1 dose by mouth once zggmlJdt1676-Gtk Wbt-Fvsn-Lnt-Asb-C (Plenvu) 140-9-5.2 gram powder in packet, sequential Discontinued 140 ML PO .COMPLEX 1 April 16, 2024 12:00am June 20, 2024 11:13am First dose at 4pm the day before colonoscopy, Second dose at 11pm the night before the colonoscopyStart: 48-19-5953rmca 1 dose by mouth once tfylmLgu5169-Dpm Nqv-Ncsn-Zkj-Asb-C (Plenvu) 140-9-5.2 gram powder in packet, sequential Active 140 ML PO .COMPLEX 1 1 April 16, 2024 12:00am First dose at 4pm the day before colonoscopy, Second dose at 11pm the night before the colonoscopycalcium carbonate 1500 mg oral tablet (10 sources)Start: 09-09-2021 End: 30-04-4338aaqb 1 tablet by mouth once dailyCalcium Carbonate (Calcium 600) 600 mg calcium (1,500 mg) Tablet Discontinued 600 MG PO Daily September 09, 2021 1:00am April 16, 2024 10:11amcarbamide peroxide 65 mg/ml otic solution (2 sources)Start: 04-18-2025 End: 12-84-2540kugrcolwg peroxide (Debrox) 6.5 % otic solution Indications: Impacted cerumen, right ear Administer5 drops into affected ear(s) in the morning and 5 drops before bedtime. Do all this for 5 days. 15 mL 04/18/2025 04/23/2025 Expiredcholecalciferol 0.025 mg oral tablet (20 sources)Vitamin DStart: 09-09-2021 End: 57-49-1349ngil 1 tablet by mouth once dailyCholecalciferol (Vitamin D3) (Vitamin D3) 25 mcg (1,000 unit) Tablet Discontinued 25 MCG PO Daily September 09, 2021 1:00am April 16, 2024 10:11amtake 1 capsule by mouth once daily cholecalciferol (Vitamin D-3) 25 MCG (1000 UT) capsule Take 1,000 Units by mouth Daily Activetake 1 tablet by mouth every twenty-four hoursVitamin D 25 MCG (1000 UT) 1 tablet Orally Once a day Activechondroitin sulfates 200 mg / glucosamine hydrochloride 250 mg oral tablet (10 sources)Start: 09-09-2021 End: 55-21-8407eamn 1 tablet by mouth once dailyGlucosamine-Chondroitin (Osteo Bi-Flex) 250-200 mg Tablet Discontinued 1 TAB PO Daily August 1:00am April 16, 2024 10:11amcinnamon bark 500 mg oral capsule (10 sources)Start: 09-09-2021 End: 20-12-6472jrsh 1 capsule by mouth once dailyCinnamon Bark (Cinnamon) 500 mg Capsule Discontinued 500 MG PO Daily September 09, 2021 1:00am April 16, 2024 10:11amglyBURIDE 5 mg oral tablet (20 sources)SulfonylureaStart: 09-09-2021 End: 22-51-2021zzel 2 tablets by mouth once dailyGlyburide 5 mg tablet Discontinued 10 MG PO Daily September 09, 2021 1:00am May 09, 2024 8:5 9amStart: 09-09-2021 End: 59-95-9343kppu 1 tablet by mouth in the morningglyBURIDE (Diabeta) 5 MG tablet Indications: Type 2 diabetes mellitus with other neurologic complication, without long-term current use of insulin ([facility]) Take 1 tablet (5 mg) by mouth in the morning and 1 tablet (5 mg) in the evening. Take with meals. 180 tablet 3 01/09/2024 10/25/2024 DiscontinuedStart: 09-09-2021 End: 23-65-5498kpzl 10 mg by mouth once dailyGlyburide Discontinued 10 MG PO Daily September 09, 2021 1:00am May 09, 2024 8:59amtake 2 tablets by mouth every twenty-four hoursglyBURIDE 5 MG 2 tablets Orally Once a day Active linaclotide 0.072 mg oral capsule (2 sources)Guanylate Cyclase-C AgonistStart: 04-19-2025 End: 04-08-7017ckch 1 capsule by mouth once dailyLinaclotide (Linzess) 72 mcg capsule Discontinued 72 MCG PO Daily 90 90 0 April 19, 2025 12:00amJune 14, 2025 10:07amMagnesium (10 sources)Start: 09-09-2021 End: 14-30-7496cqqq 2 tablets by mouth once dailyMagnesium 200 mg Tablet Discontinued 400 MG PO Daily September 09, 2021 1:00am April 16, 2024 10:11am Start: 09-09-2021 End: 05-51-7016ukka 2 tablets by mouth once dailyMagnesium 200 mg Tablet Discontinued 400 MG PO Daily September 09, 2021 12:00am April 16, 2024 9:11am Start: 09-09-2021 End: 94-80-7059ikit 400 mg by mouth once dailyMagnesium Discontinued 400 MG PO Daily September 09, 2021 1:00am April 16, 2024 10:11amStart: 07-02-6635pvii 400 mg by mouth once dailyMagnesium Active 400 MG PO Daily September 09, 2021 1:00ammelatonin 10 mg oral tablet (10 sources)Start: 09-09-2021 End: 28-17-9255tleu 1 tablet by mouth once daily at bedtimeMelatonin 10 mg Tablet Discontinued 10 MG PO Daily at bedtime September 09, 2021 1:00am April 16, 2024 10:11ampsyllium 400 mg oral capsule (2 sources)Start: 09-09-2021 End: 78-89-6925Utehpmrm Husk 0.4 gram Capsule Discontinued 0.4 GM PO Daily September 09, 2021 1:00am April 16, 2024 10:11amPsyllium Husk (4 sources)Start: 09-09-2021 End: 14-49-2980pyfv 0.4 g by mouth once dailyPsyllium Husk Discontinued 0.4 GM PO Daily September 09, 2021 1:00am April 16, 2024 10:11amStart: 09-09-2021 take 0.4 g by mouth once dailyPsyllium Husk Active 0.4 GM PO Daily September 09, 2021 1:00amPsyllium Husk 0.4 gram Capsule (4 sources)Start: 09-09-2021 End: 81-46-8032Zsqtxktj Husk 0.4 gram Capsule Discontinued 0.4 GM PO Daily September 09, 2021 1:00am April 16, 2024 10:11amStart: 09-09-2021 End: 01-11-2881Tpvsmhkx Husk 0.4 gram Capsule Discontinued 0.4 GM PO Daily September 09, 2021 12:00am March 9:11amVit C-Zn Gluc-Herbal No.325 (Elderberry Zinc Vit C) 90-15 mg Lozenge (10 sources)Start: 09-09-2021 End: 98-58-2074Lka C-Zn Gluc-Herbal No.325 (Elderberry Zinc Vit C) 90-15 mg Lozenge Discontinued 2 LOZENGE PO Daily September 09, 2021 12:00am April 16, 2024 9:10amStart: 09-09-2021 End: 94-29-6432Bxt C-Zn Gluc-Herbal No.325 (Elderberry Zinc Vit C) 90-15 mg Lozenge Discontinued 2 LOZENGE PO Daily September 09, 2021 1:00am April 16, 2024 10:10amStart: 79-99-1802Evk C-Zn Gluc-Herbal No.325 (Elderberry Zinc Vit C) 90-15 mg Lozenge Active 2 LOZENGE PO Daily September 09, 2021 1:00amvitamin b12 0.1 mg oral tablet (17 sources)Vitamin O12Iubqa: 04-16-2024 End: 70-33-5536ujhh 1 tablet by mouth once dailyCyanocobalamin (Vitamin B-12) 100 mcg tablet Discontinued 100 MCG PO Daily April 16, 2024 12:00am May 09, 2024 8:51amvitamin e 100 unt oral capsule (10 sources)Start: 09-09-2021 End: 06-01-9575eixm 1 capsule by mouth once dailyVitamin E 100 unit Capsule Discontinued 1 CAP PO Daily September 09, 2021 1:00am April 16, 2024 10:10am Start: 54-90-0754fepw 1 capsule by mouth once dailyVitamin E Active 1 CAP PO Daily September 09, 2021 1:00amVitamins A,C,F-Rgfl-Vlbcis (Preservision Areds) 14,320-226-200 soln-ay-wark Capsule (8 sources)Start: 09-09-2021 End: 45-19-8708zxmw 2 capsules by mouth once dailyVitamins A,C,I-Quha-Duhxff (Preservision Areds) 14,320-226-200 ackm-dz-grpy Capsule Discontinued 2 CAP PO Daily September 09, 2021 12:00am April 16, 2024 9:10amStart: 09-09-2021 End: 92-17-5494xjiw 2 capsules by mouth once dailyVitamins A,C,X-Wkwg-Fgdcyt (Preservision Areds) 14,320-226-200 bfwt-gn-dzsp Capsule Discontinued 2 CAP PO Daily September 09, 2021 1:00am April 16, 2024 10:10amStart: 16-30-9596cckr 2 capsules by mouth once dailyVitamins A,C,T-Tcac-Wbsytw (Preservision Areds) 14,320-226-200 ulwa-xf-fucu Capsule Active 2 CAP PODaily September 09, 2021 1:00am Problems Active Problems Problem ClassificationProblemDateDocumented DateEpisodic/ChronicAcquired foot deformities (20 sources)Hammer toe; Translations: [Other hammer toe(s) (acquired), left foot]Onset: 01-19-2023 Resolved: 251661-78-5503XqkfdslSdlwlman foot deformities (20 sources)Hammer toe; Translations: [Other hammer toe(s) (acquired), right foot]Onset: 01-19-2023 Resolved: 116292-88-0821JjvdaafSnxahaqejlbdvr/social admission (2 sources)Patient encounter status; Translations: [Other specified counseling] 70-27-4740TlspdptfQecmbxbc reactions (20 sources)Atopic dermatitis; Translations: [Atopic dermatitis, unspecified] Onset: 008454-72-0129TooekawIxxwuhx dysrhythmias (20 sources)Cardiac arrhythmia, unspecified; 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]Onset: 133840-17-4591PexegrtPzvsrqnixg associated with dizziness or vertigo (1 source)Dizziness and giddiness; Translations: [DIZZINESS AND GIDDINESS]Onset: 19-72-0156EqmlgrmnWknjrbhc mellitus with complications (20 sources)Type 2 diabetes mellitus with hyperglycemia; Translations: [Disorder of nervous system due to diabetes mellitus]Onset: 05-06-2022 Resolved: 429858-06-3374MbicqpxBqnjfxock of lipid metabolism (20 sources)Mixed hyperlipidemia; Translations: [Mixed hyperlipidemia]Onset: 849460-64-8128FycuzvhMtazethsrwaaro and diverticulitis (20 sources)Diverticulosis of large intestine without perforation or abscess without bleeding; Translations: [Diverticulosis of sigmoid colon]Onset: 05-27-2021 Resolved: 552072-18-3836KpbocuwTwcgldpudf disorders (20 sources)Gastroesophageal reflux disease; Translations: [Gastro-esophageal reflux disease without esophagitis]Onset: 562352-53-0608KdzttaaAgzhfswaa hypertension (20 sources)Essential (primary) hypertension; Translations: [Benign essential hypertension]Onset: 05-06-2022 Resolved: 403686-68-4840YwmqwbhRrvxqaaxqufro symptoms and ill-defined conditions (20 sources)Mixed urinary incontinence; Translations: [Mixed incontinence]Onset: 165235-30-5330SlajhpqTtoznmeckgzeb and screening for infectious disease (2 sources)Needs influenza immunization; Translations: [Encounter for immunization]95-99-5723EmcpupbgDsebdlc and fatigue (1 source)Weakness; Translations: [WEAKNESS]Onset: 00-38-0625Onjoatdf Miscellaneous mental health disorders (20 sources)Chronic insomnia; Translations: [Psychophysiologic insomnia]Onset: 010580-37-1244YvlqgceHzyq wounds of extremities (2 sources)Tear of skin; Translations: [Laceration without foreign body, left lower leg, initial encounter]72-96-6682SuqocxpjIqikayxrqydwqz (20 sources)Osteoarthritis of knee; Translations: [Osteoarthritis of knee, unspecified]Onset: 02-02-2023 Resolved: 076193-91-6053IqvcrzpZnbvrusytrlb (20 sources)Osteoporosis; Translations: [Age-related osteoporosis without current pathological fracture]Onset: 867685-90-2114YtruyhxGjthm aftercare (1 source)custodial (current) use of oral hypoglycemic drugs; Translations: [INDUSTRIAL NURSE USE ORAL HYPOGLYCEMIC DX]Onset: 43-36-9366AconeeelJwzdy aftercare (1 source)Other oil heaterman (current) drug therapy; Translations: [OTH CARE HOME CURRENT DRUG THERAPY]Onset: 36-57-7349GaaktxxmGdlow connective tissue disease (5 sources)Pain in toe; Translations: [Pain in left toe(s)]71-00-3606Szaoqfzh Other connective tissue disease (2 sources)Pain in both feet; Translations: [Pain in right foot]05-15-2025 EpisodicOther ear and sense organ disorders (20 sources)Sensorineural hearing loss, bilateral; Translations: [Sensorineural hearing loss, bilateral]Onset: 116183-61-3556ShlwcgnGjgqa ear and sense organ disorders (2 sources)Bilateral tinnitus; Translations: [Tinnitus, bilateral]07-02-2024 EpisodicOther ear and sense organ disorders (2 sources)Impacted cerumen of bilateral ears; Translations: [Impacted cerumen, bilateral]42-05-8647DyzftsruUbbuv ear and sense organ disorders (4 sources)Impacted cerumen in right ear; Translations: [Impacted cerumen, right ear]23-54-4775GcsuclzeDycbc eye disorders (20 sources)Hemorrhage of bilateral vitreous bodies; Translations: [Vitreous hemorrhage, bilateral]Onset: 688497-46-0369WejynukOubbl gastrointestinal disorders (20 sources)Irritable bowel syndrome characterized by constipation; Translations: [Irritable bowel syndrome with constipation]Onset: 02-02-2023 24-06-7488NeesrabVvfsu gastrointestinal disorders (11 sources)Irritable bowel syndrome with constipation; Translations: [Irritable bowel syndrome]98-46-5251ChahbebCqaas gastrointestinal disorders (9 sources)Diarrhea; Translations: [Diarrhea, unspecified]Onset: 06-24-2025 83-58-9687TlevdfmaXmznu gastrointestinal disorders (8 sources)Diarrhea, unspecified; Translations: [Diarrhea]Onset: 08-19-2021 Resolved: 81-20-5356HgluphjxVpsfh gastrointestinal disorders (4 sources)Change in bowel habit; Translations: [Other symptoms involving digestive system]Onset: 466524-60-5343ZlyqcmopIqovf gastrointestinal disorders (10 sources)History of rectal bleeding; Translations: [Personal history of other diseases of the digestive system]44-70-6287XishhsdsJoqaafp on above:Problem List clean-up per request of Phys. EHR CmteOther gastrointestinal disorders (3 sources)Other fecal abnormalities; Translations: [Other symptoms involving digestive system]13-64-6434VqevrudzTofkm hereditary and degenerative nervous system conditions (20 sources)Restless legs; Translations: [Restless legs syndrome]Onset: 963660-09-5683DkdtpsbJeabg inflammatory condition of skin (20 sources)Psoriasis; Translations: [Psoriasis, unspecified]Onset: 02-02-2023 82-31-0012MvdtfdeKaiel nervous system disorders (20 sources)Walking disability; Translations: [Difficulty in walking, not elsewhere classified]Onset: 307220-07-2510DtmxaxcPtsew nervous system disorders (20 sources)Entrapment of left ulnar nerve; Translations: [Lesion of ulnar nerve, left upper limb]Onset: 249468-99-5730TmrrgzfTjkgj non-traumatic joint disorders (2 sources)Pain in right shoulder; Translations: [Pain in joint, shoulder region]97-95-5669CcskafnvVhkhj skin disorders (7 sources)Ingrowing toenail; Translations: [Ingrowing nail]83-99-6197Nkremcgb Other upper respiratory disease (20 sources)Allergic rhinitis; Translations: [Other allergic rhinitis]Onset: 503409-17-9480RoaigkmDystn upper respiratory disease (4 sources)Allergic disposition; Translations: [Other allergic rhinitis] 15-68-1034GxfvkhdNabjv upper respiratory infections (10 sources)Acute sinusitis; Translations: [Acute sinusitis, unspecified] 26-60-5580WxuquixgLeynezjh enteritis and ulcerative colitis (20 sources)Pseudopolyposis of colon; 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]Onset: 377686-14-3071YgkjgtbMdygeih detachments; defects; vascular occlusion; and retinopathy (20 sources)Bilateral degeneration of macula; Translations: [Unspecified macular degeneration]Onset: 120222-56-6273OnkjoswIeuzyehzkf (except in labor) (1 source)Sepsis, unspecified organism; Translations: [SEPSIS UNSPECIFIED ORGANISM]Onset: 92-22-0896ExfggdvvRcyklzqcvcg; intervertebral disc disorders; other back problems (20 sources)Bilateral inflammation of sacroiliac joint; Translations: [Sacroiliitis, not elsewhere classified]Onset: hronic Syncope (1 source)Syncope and collapse; Translations: [SYNCOPE AND COLLAPSE]Onset: 28-09-0019SbfocqraXkpwdgf disorders (20 sources)Acquired hypothyroidism; Translations: [Hypothyroidism, unspecified] Onset: 979308-46-9855TjzoqngKkkddhoqbfbu (1 source)CONTACT W/AND (SUSP) EXPOS COVID-19; Translations: [CONTACT W/AND (SUSP) EXPOS COVID-19]Onset: 02-36-7204Pzydoqo tract infections (5 sources)Urinary tract infection, site not specified; Translations: [Acute cystitis]Onset: 39-15-4761Cybblawg Past or Other Problems Problem ClassificationProblemDateDocumented DateEpisodic/ChronicAcquired foot deformities (20 sources)Metatarsophalangeal joint stiff; Translations: [Other deformities of toe(s) (acquired), right foot]Onset: 01-19-2023 Resolved: 818365-88-6112IxxiqthzQazofwgi foot deformities (20 sources)Metatarsophalangeal joint stiff; Translations: [Other deformities of toe(s) (acquired), left foot]Onset: 591135-01-6897YhuxrqccDjsl and rectal conditions (1 source)Rectal polyp; Translations: [RECTAL POLYP]Onset: 90-15-7997Jgnkuqfb Calculus of urinary tract (20 sources)Kidney stone; Translations: [Calculus of kidney]Onset: 02-02-2023 51-70-2759PbnsnegtBhxtpytl mellitus without complication (20 sources)Type 2 diabetes mellitus without complications; Translations: [Diabetes mellitus]Onset: 05-27-2021 Resolved: 215011-56-6134VhmfihhSdxgxbechcxirxes hemorrhage (20 sources)Hemorrhage of anus and rectum; Translations: [Melena]Onset: 05-25-2021 Resolved: 72-53-4354YpomftdoZpvglxchwkcrt symptoms and ill-defined conditions (20 sources)Urgent desire to urinate; Translations: [Urgency of urination]Onset: 04-19-2008 Resolved: 584073-32-7869HtmzowysRczi disorders (20 sources)Mood disordersOnset: 06-23-2023 Resolved: 229734-80-3622Opamppq (20 sources)Onychomycosis due to dermatophyte ; Translations: [Tinea unguium] Onset: 853151-93-1295EdmswgvnGccmn acquired deformities (20 sources)Spondylolisthesis; Translations: [Spondylolisthesis, site unspecified]Onset: 941526-40-2582PkojzikiNxspl and unspecified benign neoplasm (1 source)Personal history of colonic polyps; Translations: [PERSONAL HISTORY OF COLONIC POLYPS]Onset: 58-27-5536FuerhynjVrbuf and unspecified benign neoplasm (20 sources)Hyperplastic polyp of large intestine; Translations: [Polyp of colon]Onset: 610433-62-4717EgaozrlbDmqvj connective tissue disease (20 sources)Neuropathic pain; Translations: [Neuralgia and neuritis, unspecified]Onset: 051398-46-3491UsdgudfyTomhy connective tissue disease (20 sources)Ganglion cyst; Translations: [Ganglion, unspecified site]Onset: 506436-85-6259QmawpywpUpxjo connective tissue disease (20 sources)Peripheral neuralgia; Translations: [Neuralgia and neuritis, unspecified]Onset: 078391-16-4548ZaorxyzvMjkat connective tissue disease (20 sources)Unspecified rotator cuff tear or rupture of unspecified shoulder, not specified as traumatic; Translations: [Rotator cuff (capsule) sprain]Onset: 02-02-2023 Resolved: 228022-58-2717UozgemgmXytdr diseases of kidney and ureters (20 sources)Cyst of kidney; Translations: [Cyst of kidney, acquired]Onset: 544271-44-8735RezoirblKjygl ear and sense organ disorders (20 sources)Hearing loss of right ear; Translations: [Unspecified hearing loss, right ear]Onset: 02-02-2023 Resolved: 789150-12-4227ZlcsugnXqkqx ear and sense organ disorders (20 sources)Tinnitus; Translations: [Tinnitus, unspecified ear]Onset: 02-02-2023 95-45-4693HghxzffjEjike gastrointestinal disorders (20 sources)Incontinence of feces; Translations: [Full incontinence of feces] Onset: 723316-20-2100FvnhwzflGulhq gastrointestinal disorders (2 sources)Full incontinence of feces; Translations: [FULL INCONTINENCE OF FECES]Onset: 08-19-2021 Resolved: 82-69-0443TtrlildfAkwja gastrointestinal disorders (20 sources)Altered bowel function; Translations: [Change in bowel habit]Onset: 060484-65-6241VcrknimyXuqpr gastrointestinal disorders (20 sources)Change in stool caliber; Translations: [Other fecal abnormalities] Onset: 07-02-2024 Resolved: 495695-05-1741DnbcfpkpZanlt gastrointestinal disorders (20 sources)Chronic constipation; Translations: [Other constipation]Onset: 862795-50-7581NjwgmxvgToefb injuries and conditions due to external causes (20 sources)At risk for falls ; Translations: [History of falling]Onset: 253188-69-6949ZuotwhycVfxfz nervous system disorders (20 sources)Impairment of balance; Translations: [Other abnormalities of gait and mobility]Onset: 178308-89-3505NdmaoyfhFpfdu skin disorders (20 sources)Nail deformity; Translations: [Other nail disorders]Onset: 605181-20-0243MmuzewzfGroai skin disorders (20 sources)Callosity; Translations: [Corns and callosities]Onset: 01-19-2023 80-04-0442ObpimuurNiswi skin disorders (20 sources)Disorder of foot; Translations: [Atrophic disorder of skin, unspecified]Onset: 410767-28-8268YrrqtijhDnfnf skin disorders (20 sources)Bilateral ingrowing nail of toe of feet; Translations: [Ingrowing nail]Onset: 01-19-2023 Resolved: 901776-36-6502SyqtmqkpJshnjbpdbe disorders (not diabetes) (20 sources)Cyst of pancreas; Translations: [Cyst of pancreas]Onset: 02-02-2023 88-88-0991UnmwfxmcFefafgvf codes; unclassified (1 source)Acquired absence of both cervix and uterus; Translations: [ACQUIRED ABSENCE BOTH CERVIX AND UTERUS]Onset: 04-31-5576LmchcbraQghgfvma codes; unclassified (1 source)Acquired absence of other specified parts of digestive tract; Translations: [ACQ ABSENCE OTH PART DIGESTV TRACT]Onset: 99-63-5169Ginqwlwo Residual codes; unclassified (20 sources)Localized edema; Translations: [Localized edema]Onset: 01-19-2023 75-21-8500QtablunuOimvaljy codes; unclassified (20 sources)History of partial resection of colon; Translations: [Acquired absence of other specified parts of digestive tract]Onset: EpisodicSpondylosis; intervertebral disc disorders; other back problems (20 sources)Degenerative lumbar spinal stenosis; Translations: [Spinal stenosis, lumbar region without neurogenic claudication]Onset: 02-02-2023 Resolved: 685097-76-7057TykfjfluMkjldkxc veins of lower extremity (20 sources)Venous varices; Translations: [Asymptomatic varicose veins of unspecified lower extremity]Onset: 977835-78-1047Zagplphw Results Test NameValueInterpretationReference RangeFacilityCBC (INCLUDES DIFF/PLT)on 52-92-9001Gofrgxaic (Bld) [#/Vol]0.065 10*3/uLNormal0-200[facility] Comment on above:Performed By: #### [id number], 6501 #### [facility] [address] [facility], [address] [place] [id number] Cigarette Packer: Ji Fung MDBasophils/100 WBC (Bld)0.6 %NormalQuest DiagnosticsComment on above:Performed By: #### [id number], 6399 #### [facility] of [address], [address] [place] [address] Cigarette Packer: Ji Fung MDEosinophils (Bld) [#/Vol]0.076 10*3/uLNormal 15-500[facility] DiagnosticsComment on above:Performed By: #### 87340, 6399 #### [facility] of [address], [address] [place] [address] Cigarette Packer: Ji Fung MDEosinophils/100 WBC (Bld)0.7 %NormalQuest DiagnosticsComment on above:Performed By: #### 02776, 6399 #### [facility] of [place] [address] Cigarette Packer: Ji Fung MDErythrocyte distribution width (RBC) [Ratio] 15.6 %High11.0-15.0[facility] DiagnosticsComment on above:Performed By: #### 46581, 6399 #### [facility] of [address], [address] [place] [address] Cigarette Packer: Ji Fung MDHematocrit (Bld) [Volume fraction]50.8 %High 35.0-45.0[facility]osticsComment on above:Performed By: #### 81091, 6399 #### [facility] of [place] [address] Cigarette Packer: Ji Fung MDHemoglobin (Bld) [Mass/Vol]16.2 g/dLHigh 11.7-15.5[facility] DiagnosticsComment on above:Performed By: #### 96311, 6399 #### [facility] of [address], [address] [place] [address] Cigarette Packer: Ji Fung MDLymphocytes (Bld) [#/Vol]2.441 10*3/uLNormal 850-3900Quest DiagnosticsComment on above:Performed By: #### 09840, 6399 #### [facility] of [address], [address] [place] [address] Cigarette Packer: Ji Fung MDLymphocytes/100 WBC (Bld)22.6 %NormalQuest DiagnosticsComment on above:Performed By: #### 08116, 6399 #### [facility] [place] [address] Cigarette Packer: Ji Fung MDMCH (RBC) [Entitic mass]29.3 ulHzlwgk05.0-33.0 [facility]osticsComment on above:Performed By: #### 92571, 6399 #### [facility] of [place] [address] Cigarette Packer: Ji WHITECHC (RBC) [Mass/Vol]31.9 g/dLLow32.0-36.0 [facility]osticsComment on above:Result Comment: For adults, a slight decrease in the calculated MCHC value (in the range of 30 to 32 g/dL) is most likely not clinically significant; however, it should be interpreted with caution in correlation with other red cell parameters and the patient's clinical condition.Performed By: #### 71311, 6399 #### [facility] [place] [address] Cigarette Packer: Ji Fung MDMCV (RBC) [Entitic vol]91.9 wFFqsvax16.0-100.0 [facility]osticsComment on above:Performed By: #### 47279, 6399 #### [facility] of [place] [address] Cigarette Packer: Ji Fung MDMonocytes (Bld) [#/Vol]0.68 10*3/uLNormal 200-950Quest DiagnosticsComment on above:Performed By: #### 72673, 6399 #### [facility] of [place] [address] Cigarette Packer: Ji Fung MDMonocytes/100 WBC (Bld)6.3 %NormalQuest DiagnosticsComment on above:Performed By: #### 44142, 6399 #### [facility] of [place] [address], [address] [place] [address] Cigarette Packer: Ji Venturautrophils (Bld) [#/Vol]7.538 10*3/uLNormal 1500-7800Quest DiagnosticsComment on above:Performed By: #### 81292, 6399 #### [facility] of [place] [address], [address] [place] [address] Cigarette Packer: Ji Valeophils/100 WBC (Bld)69.8 %NormalQuest DiagnosticsComment on above:Performed By: #### 22582, 6399 #### [facility] of [address], [address] [place] [address] Cigarette Packer: Ji WINTERSlateeddie mean volume (Bld) [Entitic vol]10.6 fLNormal7.5-12.5[facility]osticsComment on above:Performed By: #### 30587, 6399 #### [facility] of [address] , [address] [place] [address] Cigarette Packer: Ji WINTERSlatelets (Bld) [#/Vol]222 10*3/uLNormal 140-400[facility] DiagnosticsComment on above:Performed By: #### 32312, 6399 #### [facility] of [address], [address] [place] [address] Cigarette Packer: Ji Fung MDRBC (Bld) [#/Vol]5.53 10*6/uLHigh3.80-5.10 [facility]osticsComment on above:Performed By: #### 40719, 6399 #### [facility] of [address], [address] [place] [address] Cigarette Packer: Ji Fung MDWBC (Bld) [#/Vol]10.8 10*3/uLNormal3.8-10.8 [facility]osticsComment on above:Performed By: #### 84010, 6399 #### [facility] of [place] [address] Cigarette Packer: Ji Fung [facility]ABOLIC PANELon 07-05-2025 Albumin [Mass/Vol]4.5 g/dLNormal3.6-5.1[facility] DiagnosticsComment on above:Order Comment: FASTING:NO FASTING: NOPerformed By: #### 46005, 6399 #### [facility] of [address], [address] [place] [address] Cigarette Packer: Ji Fung MDAlbumin/Globulin [Mass ratio]1.9 {ratio}Normal 1.0-2.5[facility] DiagnosticsComment on above:Order Comment: FASTING:NO FASTING: NOPerformed By: #### 02809, 6399 #### [facility] of [address], [address] [place] [address] Cigarette Packer: Ji Fung MDALP [Catalytic activity/Vol]55 U/QMoqwye79-495 [facility]osticsComment on above:Order Comment: FASTING:NO FASTING: NOPerformed By: #### 27362, 6399 #### [facility] of [place] [address] Cigarette Packer: Ji Fung MDALT [Catalytic activity/Vol]19 U/LNormal6-29 [facility]osticsComment on above:Order Comment: FASTING:NO FASTING: NOPerformed By: #### 19858, 6399 #### [facility] of [address], [address] [place] [address] Cigarette Packer: Ji Fung MDAST [Catalytic activity/Vol]16 U/NZpdnkb73-68 [facility]osticsComment on above:Order Comment: FASTING:NO FASTING: NOPerformed By: #### 87954, 6399 #### [facility] of [address], [address] [place] [address] Cigarette Packer: Ji Fung MDBilirubin [Mass/Vol]0.5 mg/dLNormal0.2-1.2 [facility]osticsComment on above:Order Comment: FASTING:NO FASTING: NOPerformed By: #### 19773, 6399 #### [facility] of [address], [address] [place] [address] Cigarette Packer: Ji Fung MDBUN/CREATININE RATIOSEE NOTE:Normal6-22[facility] DiagnosticsComment on above:Order Comment: FASTING:NO FASTING: NOResult Comment: Not Reported: BUN and Creatinine are within reference range.Performed By: #### 26781, 6399 #### [facility] of [address], [address] [place] [address] Cigarette Packer: Ji Fung MDCalcium [Mass/Vol]9.4 mg/dLNormal8.6-10.4[facility] DiagnosticsComment on above:Order Comment: FASTING:NO FASTING: NOPerformed By: #### 20603, 6399 #### [facility] of [address], [address] [place] [address] Cigarette Packer: Ji Fung MDChloride [Moles/Vol]103 mmol/ZPycwao37-000 [facility] DiagnosticsComment on above:Order Comment: FASTING:NO FASTING: NOPerformed By: #### 99777, 6399 #### [facility] of [address], [address] [place] [address] Cigarette Packer: Ji Fung MDCO2 [Moles/Vol]26 mmol/ADlltmo00-61Ecnjh DiagnosticsComment on above:Order Comment: FASTING:NO FASTING: NOPerformed By: #### 58798, 6399 #### [facility] of [address], [address] [place] [address] Cigarette Packer: Ji AZARreatinine [Mass/Vol]0.71 mg/dLNormal0.60-0.95 [facility] DiagnosticsComment on above:Order Comment: FASTING:NO FASTING: NOPerformed By: #### [id number], 6399 #### [facility] of [address], [address] [place] [address] Cigarette Packer: Ji Fung MDGFR/1.73 sq M.predicted among non-blacks MDRD (S/P/Bld) [Vol rate/Area]82 mL/min/{1.73_m2}Normal> OR = 60[facility] Comment on above:Order Comment: FASTING:NO FASTING: NOPerformed By: #### [id number], [id number] #### [facility] [address], [address] [place] [address] Cigarette Packer: Ji Fung MDGlobulin (S) [Mass/Vol]2.4 g/dLNormal1.9-3.7 [facility] DiagnosticsComment on above:Order Comment: FASTING:NO FASTING: NOPerformed By: #### [id number], 6399 #### [facility] [address] [place] [address], [address] [place] [address] Cigarette Packer: Ji Fung MDGlucose [Mass/Vol]175 mg/kJMzjb25-167Nokqp DiagnosticsComment on above:Order Comment: FASTING:NO FASTING: NOResult Comment: Non-fasting reference interval This amended report is issued due to a previously reported incorrect reference range on the original report. There is no change in the flagging of the result. For someone without known diabetes, a glucose value >125 mg/dL indicates that they may have diabetes and this should be confirmed with a follow-up test. PLEASE DISREGARD PREVIOUSLY REPORTED INFORMATION BELOW: (The information below was originally reported on 02/05/2025 at 8:31 AM) GLUCOSE 175 H Fasting reference interval For someone without known diabetes, a glucose value >125 mg/dL indicates that they may have diabetes and this should be confirmed with a follow-up test.Performed By: #### [id number], 6399 #### [facility] [address] [place] [address], [address] [place] [address] Cigarette Packer: Ji Fung MDPotassium [Moles/Vol]4.2 mmol/LNormal3.5-5.3 [facility] DiagnosticsComment on above:Order Comment: FASTING:NO FASTING: NOPerformed By: #### [id number], [id number] #### [facility] [address] [place] [address], [address] [place] [address] Cigarette Packer: Ji Fung MDProtein [Mass/Vol]6.9 g/dLNormal6.1-8.1Quest DiagnosticsComment on above:Order Comment: FASTING:NO FASTING: NOPerformed By: #### 10185, 6399 #### [facility] of [address], [address] [place] [address] Cigarette Packer: Ji Fung MDSodium [Moles/Vol]140 mmol/JLlyopv855-208Tlfpg DiagnosticsComment on above:Order Comment: FASTING:NO FASTING: NOPerformed By: #### [id number], [id number] #### [facility] of [address], [address] [place] [address] Cigarette Packer: Ji Fung MDUrea nitrogen [Mass/Vol]15 mg/dLNormal7-25 [facility] DiagnosticsComment on above:Order Comment: FASTING:NO FASTING: NOPerformed By: #### [id number], [id number] #### [facility] of [address], [address] [place] [address] Cigarette Packer: Ji Fung MDMiddletown State Hospitaln 25-70-0320DLP Qn1.18 m[IU]/LNormal 0.40-4.50Quest DiagnosticsComment on above:Performed By: #### 27395, 6399 #### [facility] [place] [address] Cigarette Packer: Ji Fung MDXR Foot - bilateral 3 Viewson 03-51-2818GJFD HealthcareImaging Result: Radiographs: 3 views bilateral foot were taken and reviewed. Radiographic impression: No obvious fracture or dislocation is noted. No acute osseous changes. No osteolytic or osteoblastic lesions appreciated. No soft tissue gas. No discernible mass noted. Osteopenia noted. Significant OA of left ankle, STJ, B/L midfoot noted. Vascular calcification noted. Retro and plantar calcaneal enthesopathy noted. Hammertoes noted. 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.[facility] CenterRadiology Study observation (narrative)NOMS HealthcareUS Thyroid glandon 28-89-8357[address] [address] Ultrasound Report Signed Patient: JAMES WEAVER MR#: [id number] : 1935 Acct:[id number] Age/Sex: 89 / F ADM Date: 05/01/25 Loc: US Attending Dr: Adonay Diop NP Ordering Physician: Adonay Diop NP Date of Service: 05/01/25 Procedure(s): US thyroid Accession Number(s): [id number] cc: CONRADO AMBRIZ ; Adonay Diop NP [place] [id number] Patient Name: JAMES WEAVER MRN: [id number] date: 1935 Sex: F Assigned Patient Location: US Current Patient Location: US Accession/Order Number: [id number] Exam Date: 05/01/2025 13:03 Report Date: 05/01/2025 [...] Jr., D.O. 05/01/2025 1:59 PM Dictation Location: [place] [address] Electronically authenticated by: [id number] Y Date: 05/01/2025 13:59 Dictated By: Hugo Centeno M.D. Signed By: 05/01/25 1401 DD/ 1359 TD/TT: Bilingual Hr Generalist:MARCHRadiology, Radiologist, - 05/01/[address] [address] Ultrasound Report Signed Patient: JAMES WEAVER MR#: [id number] : 1935 Acct:[id number] Age/Sex: 89 / F ADM Date: 05/01/25 Loc: US Attending Dr: Adonay Diop NP Ordering Physician: Adonay Diop NP Date of Service: 05/01/25 Procedure(s): US thyroid Accession Number(s): [id number] cc: CONRADO AMBRIZ ; Adonay Diop NP The [place] [id number] Patient Name: JAMES WEAVER MRN: [id number] date: 1935 Sex: F Assigned Patient Location: US Current Patient Location: US Accession/Order Number: [id number] Exam Date: 05/01/2025 13:03 Report Date: 05/01/2025 [...] Jr., D.O. 05/01/2025 1:59 PM Dictation Location: [place] [address] Electronically authenticated by: [id number] Y Date: 05/01/2025 13:59 Dictated By: Hugo Centeno M.D. Signed By: 05/01/25 1401 DD/ 1359 TD/TT: Bilingual Hr Generalist: [facility] Children's HospitalRadiology Study observation (narrative)KAPIL GoldsmithUS Thyroid glandOrdered By: Radiologist Radiology on 94-22-7307RBNWSSM Health Cardinal Glennon Children's Hospital Work Phone: HbA1c (Bld) [Mass fraction]on 77-49-5010Penojxryprepgr and review of laboratory resultsAbnormRipon Medical CenterLaboratory - Hematology and Cell countson 15-59-1659ArZ7e (Bld) [Mass fraction]7.9 %[facility] Children's HospitalUrinalysis macro (dipstick) panel (U)on 36-18-2145Hdxafzttt, UA NegativeNegative - 4(70) +++ mg/dLNOMS HealthcareBlood, UANegativeNegative - 50 Tony/mcLNOMS HealthcareClarity, UAClearNOMS HealthcareColor, UAYellowNOMS HealthcareGlucose, UANegativeNegative - 2000(110) ++++ mg/dLNONH Healthcare Interpretation and review of laboratory resultsNormVeterans Affairs Pittsburgh Healthcare SystemKetones, UA NegativeNegative - 160(16) ++++ mg/dLTHE [facility] HealthcareLeukocytes, UANegative Negative - 500+++ Kristopher/mcLNONH HealthcareNitrite, UANegativeNegative - Positive NOMS HealthcarepH, UA55 - 9NOMS HealthcareProtein, UANegativeNegative - 2000(20) ++++ mg/dLNOMS HealthcareSpec Grav, UA11 - 1.03NOMS HealthcareUrobilinogen, UA 0.20.2 - 12 mg/dLNOMS Glenbeigh HospitalNOMS HealthcareXR Shoulder - right 2 Viewson 82-78-1046Ncytkqx Result: Right Shoulder AP and Scap Y [...] right shoulder arthritis with likely rotator cuff arthropathy.[facility] HealthcareRadiology Study observation (narrative)NOMS HealthcareLaboratory - Hematology and Cell countson 11-29-2024 HbA1c (Bld) [Mass fraction]7.3 %[facility] HealthcareNo Panel Informationon 11-29-2024 [facility] HealthcareBasophils Auto (Bld) [#/Vol]Ordered By: Nayan Dominguez on 93-44-9617Khrnchelb (Bld) [#/Vol]Automated basophil count0.0-0.2FOhioHealth Grant Medical CenterBasophils/100 WBC Auto (Bld)Ordered By: Nayan Dominguez on 90-33-8022Jdmwrldew/100 WBC (Bld)Automated basophil %.[facility]opedic CenterComplete Blood Count Auto Diffon 01-95-6739Rrrhgvvhq (Bld) [#/Vol] 0.1 10*3/uLNormal0.0-0.2The [facility] Physician GroupComment on above:Result Comment: PERFORMED BY: [place] [address] PATHOLOGIST MANAGER ROOM BEATRIZ GILLESPIE M.D.Performed By: #### CBC #### [place] [address] USABasophils/100 WBC (Bld)0.3 %Normal.The [facility] Hospital Physician GroupComment on above:Performed By: #### CBC #### [place] [address] USAEosinophils (Bld) [#/Vol]0.1 10*3/uLNormal0.0-0.45The [facility] Hospital Physician GroupComment on above:Performed By: #### CBC #### [place] [address] USAEosinophils/100 WBC (Bld)0.5 %Normal.The [facility] Physician GroupComment on above:Performed By: #### CBC #### [place] [address] USAErythrocyte distribution width (RBC) [Ratio]15.1 %Normal 11.9-15.3The [facility] Hospital Physician GroupComment on above:Performed By: #### CBC #### [facility] [address] [place] [id number] USAHematocrit (Bld) [Volume fraction]45.9 %Ryuyov37.0-46.4The [facility] Hospital Physician GroupComment on above:Performed By: #### CBC #### [place] [address] USAHemoglobin (Bld) [Mass/Vol]15.3 g/tVZxadxc32.8-15.4The [facility] Hospital Physician GroupComment on above:Performed By: #### CBC #### [place] [address] USALymphocytes (Bld) [#/Vol]2.3 10*3/uLNormal1.00-4.8The [facility] Hospital Physician GroupComment on above:Performed By: #### CBC #### [place] [address] USALymphocytes/100 WBC (Bld)15.4 %Normal.The [facility] Hospital Physician GroupComment on above:Performed By: #### CBC #### [place] [address] USAMCH (RBC) [Entitic mass]28.9 kaKzvojr71.7-34.3The [facility] Hospital Physician GroupComment on above:Performed By: #### CBC #### [place] [address] USAMCV (RBC) [Entitic vol]86.5 pOFrrpnh58-556Rgx [facility] Hospital Physician GroupComment on above:Performed By: #### CBC #### [place] [address] USAMean Corpuscular HGB Conc33.4 g/kCDkykqm92.0-35.0The [facility] Hospital Physician GroupComment on above:Performed By: #### CBC #### [place] [address] USAMonocytes (Bld) [#/Vol]0.9 10*3/uLHigh0.0-0.8The [facility] Hospital Physician GroupComment on above:Performed By: #### CBC #### [facility] [address] [place] [address] USAMonocytes/100 WBC (Bld)6.2 %Normal.The [facility] Hospital Physician GroupComment on above:Performed By: #### CBC #### [facility] [address] [place] [address] USANeutrophils (Bld) [#/Vol]11.9 10*3/uLHigh1.8-7.7The [facility] Hospital Physician GroupComment on above:Performed By: #### CBC #### [facility] [address] [place] [address] USANeutrophils/100 WBC (Bld)77.6 %Normal.The [facility] Hospital Physician GroupComment on above:Performed By: #### CBC #### [facility] [address] [place] [address] USANRBC%0.1 /100{WBC}Normal0-0.5The [facility]ician [facility] Comment on above:Performed By: #### CBC #### [facility] [address] [place] [address] USAPlatelet mean volume (Bld) [Entitic vol]8.8 fLNormal 6.3-10.7The [facility] Hospital Physician GroupComment on above:Performed By: #### CBC #### [facility] [address] [place] [address] USAPlatelets (Bld) [#/Vol]264 10*3/qPXtwkxc074-433Iqe [facility] Hospital Physician GroupComment on above:Performed By: #### CBC #### [facility] [address] [place] [address] USARBC (Bld) [#/Vol]5.31 10*6/uLHigh3.60-5.00The [facility] Hospital Physician GroupComment on above:Performed By: #### CBC #### [facility] [address] [place] [address] USAWBC (Bld) [#/Vol]15.3 10*3/uLHigh3.8-11.6The [facility] Hospital Physician GroupComment on above:Performed By: #### CBC #### [facility] [address] [place] [address] USAEosinophils Auto (Bld) [#/Vol]Ordered By: Nayan Dominguez on 24-03-2175Crremtuupwo (Bld) [#/Vol]Automated eosinophil count0.0-0.45 [facility] Orthopedic CenterEosinophils/100 WBC Auto (Bld)Ordered By: Nayan Dominguez on 15-15-2714Adkiowxclkk/100 WBC (Bld)Automated eosinophil %.[facility] Orthopedic CenterErythrocyte distribution width Auto (RBC) [Ratio]Ordered By: Nayan Dominguez on 70-94-1607Dlxleycnpnl distribution width (RBC) [Ratio] Erythrocyte distribution width [Ratio] by Automated count11.9-15.3FOhioHealth Grant Medical CenterHematocrit Auto (Bld) [Volume fraction]Ordered By: Nayan Dominguez on 89-55-7051Ublkffyjhq (Bld) [Volume fraction]Hematocrit [Volume Fraction] of Blood by Automated count34.0-46.4FOhioHealth Grant Medical Center Hemoglobin [Mass/volume] in BloodOrdered By: Nayan Dominguez on 10-15-2024 Hemoglobin (Bld) [Mass/Vol]Hemoglobin [Mass/volume] in Blood11.8-15.4FOhioHealth Grant Medical CenterLeukocytes [#/volume] corrected for nucleated erythrocytes in Blood by Automated counOrdered By: Nayan Dominguez on 10-15-2024 WBC corrected for nucl RBC Auto (Bld) [#/Vol]Leukocytes [#/volume] corrected for nucleated erythrocytes in Blood by Automated counHigh3.8-11.6FOhioHealth Grant Medical CenterLymphocytes Auto (Bld) [#/Vol]Ordered By: Nayan Dominguez on 21-92-4306Puyxujqyfjj (Bld) [#/Vol]Lymphocytes [#/volume] in Blood by Automated count1.00-4.8[facility] Orthopedic CenterLymphocytes/100 WBC Auto (Bld) Ordered By: Nayan Dominguez on 63-45-8742Rrtocrquizw/100 WBC (Bld)Lymphocytes/100 leukocytes in Blood by Automated count.[facility] Orthopedic CenterMCH Auto (RBC) [Entitic mass]Ordered By: Nayan Dominguez on 23-53-9673JAY (RBC) [Entitic mass]MCH [Entitic mass] by Automated count24.7-34.3FOhioHealth Grant Medical CenterMCHC Auto (RBC) [Mass/Vol]Ordered By: Nayan Dominguez on 10-15-2024 MCHC (RBC) [Mass/Vol]MCHC [Mass/volume] by Automated count32.0-35.0[facility] Orthopedic CenterMCV Auto (RBC) [Entitic vol]Ordered By: Nayan Dominguez on 36-47-8053IXB (RBC) [Entitic vol]MCV [Entitic volume] by Automated -857 [facility] CenterMonocytes Auto (Bld) [#/Vol]Ordered By: Nayan Dominguez on 32-34-2262Ezakpehai (Bld) [#/Vol]Automated blood monocyte countHigh 0.0-0.8[facility] CenterMonocytes/100 WBC Auto (Bld)Ordered By: Nayan Dominguez on 29-33-8336Jxmgjmuvu/100 WBC (Bld)Automated monocyte %. [facility] CenterNeutrophils Auto (Bld) [#/Vol]Ordered By: Nayan Dominguez on 12-60-9066Mjcbrwltgqj (Bld) [#/Vol]Neutrophils [#/volume] in Blood by Automated countHigh1.8-7.7FOhioHealth Grant Medical CenterNeutrophils/100 WBC Auto (Bld)Ordered By: Nayan Dominguez on 71-54-2500Ikrroqdjapz/100 WBC (Bld) Automated neutrophil %.[facility] Orthopedic CenterNucleated erythrocytes [Presence] in Blood by Automated countOrdered By: Nayan Dominguez on 10-15-2024 Nucleated RBC Auto Ql (Bld)Nucleated erythrocytes [Presence] in Blood by Automated count0-0.5FOhioHealth Grant Medical CenterPlatelet mean volume Auto (Bld) [Entitic vol]Ordered By: Nayan Dominguez on 26-46-0661Prgtzuxl mean volume (Bld) [Entitic vol]Platelet mean volume [Entitic volume] in Blood by Automated count6.3-10.7FOhioHealth Grant Medical CenterPlatelets Auto (Bld) [#/Vol] Ordered By: Nayan Dominguez on 15-25-7266Ktvtygpdt (Bld) [#/Vol]Platelets [#/volume] in Blood by Automated pkhry441-247AzntgkiqgCrystal Clinic Orthopedic Center RBC Auto (Bld) [#/Vol]Ordered By: Nayan Dominguez on 64-87-9828PSD (Bld) [#/Vol] Erythrocytes [#/volume] in Blood by Automated countHigh3.60-5.00[facility] Orthopedic CenterWBC Auto (Bld) [#/Vol]Ordered By: Nayan Dominguez on 93-87-4187ZRR (Bld) [#/Vol]Leukocytes [#/volume] in Blood by Automated countHigh 3.8-11.6FOhioHealth Grant Medical CenterX-ray reportOrdered By: Edgar Urrutia on 14-10-9818Destx reportPROTESTANT DEACONESS [place] [address] XRay Report Signed Patient: James Weaver MR#: [id number] : 1935 Acct:[id number] Age/Sex: 89 / F ADM Date: 5 Loc: XD Room: Type: [facility] Attending Dr: Nayan Dominguez NIGHT BAKER Copies to: Nayan Dominguez APRN~ Ordering Provider: [...] Edgar Urrutia M.D.10/15/2024 7:20 PM Dictation Location: [place] [address] Transcribed By: [facility] 10/15/241919 Dictated By: Edgar Urrutia DO 10/15/241919 Signed By: 10/15/241919 [facility] Orthopedic CenterXR KUBon 12-25-1649RK [facility] Main [place] [address] [place] [address] XRay Report Signed Patient: James Weaver MR#: [id number] : 1935 Acct:[id number] Age/Sex: 89 / F ADM Date: 10/15/24 Loc: XD Room: Type: [facility] Attending Dr: Nayan Dominguez NIGHT BAKER Copies to: Nayan Dominguez APRN Ordering Provider: [...] Edgar Urrutia M.D.10/15/2024 7:20 PM Dictation Location: [facility] Transcribed By: [facility] 10/15/241919 Dictated By: Edgar Urrutia DO 10/15/241919 Signed By: 10/15/241919[facility] Physician GroupUrinalysis macro (dipstick) panel (U)on 73-90-2348Lgeqlizti, UANegativeNegative - 4(70) +++ mg/dLNOMS HealthcareBlood, UANegativeNegative - 50 Tony/mcLNOMS HealthcareGlucose, UA3+ Negative - 1999(110) ++++ mg/dLNOMS HealthcareKetones, UANegativeNegative - 160(16) ++++ mg/dLNOMS HealthcareLeukocytes, UANegativeNegative - 500+++ Kristopher/mcL NOMS HealthcareNitrite, UANegativeNegative - PositiveNOMS HealthcarepH, UA65 - 9 NOMS HealthcareProtein, UANegativeNegative - 2000(20) ++++ mg/dLNOMS Healthcare Spec Grav, UA1.0051 - 1.03NOMS HealthcareUrobilinogen, UA0.20.2 - 12 mg/dLMercy hospital springfield HealthcareLaboratory - Hematology and Cell countson 06-11-2024 HbA1c (Bld) [Mass fraction]7.1 %[facility] Children's HospitalNo Panel Informationon 06-11-2024 [facility]illary blood glucose measurement by glucometer (mass/volume) Ordered By: Sadiq Barton on 37-58-1419Vhomijm [Mass/Vol]170 mg/dLNoal [facility]opedic CenterComment on above:Random Glucose Reference Range is dependent on time and content of last meal. Glucose of more than 200 mg/dL in a nonstressed, ambulatory subject supports the diagnosis of Diabetes Mellitus.Result Comment: Random Glucose Reference Range is dependent on time and content of last meal. Glucose of more than 200 mg/dL in a nonstressed, ambulatory subject supports the diagnosis of Diabetes Mellitus.Performed By: #### GLULS #### Point of Care testing ,Glucose Poct Glucometerson 00-03-7355Cqdrmjd0Tnw2: Cleaned MeterNoAtrium Health Steele Creek Physician GroupComment on above:Result Comment: PERFORMED BY: [facility] [address] [facility] [place] [address] PATHOLOGIST MANAGER ROOM DANIELLE HINDS M.D.Performed By: #### GLULS #### Point of Care testing ,Stevan 54-48-6351EJcyqqjmf: [id number] Received: 05/23/24 Status: ANTONINA Graves Num: [id number] Spec Type: Surgical Subm Dr: Sadiq Barton MD Tissues: A Colon Biopsy (ASCENDING POLYP) Procedures: HE/2, Gross/Micro L4 Age/ Patient Sex Location Account Attending Physician James Weaver 88/F [id number] Sadiq Barton MD SPEC NUM: [id number] RECD: 05/23/24 STATUS: ANTONINA GRAVES NUM: [id number] MIESHA: 05/23/[address]: Sadiq Barton MD ENTERED: 05/23/[address] [facility] [address]: SPEC TYPE: Surgical DEPT: S ENTERED BY: [id number] RECV BY: [id number] ORDERED: ELTONDee, Gross/Micro L4 ORDERED: , Gross/Micro L4 Pathological Diagnosis Ascending colon polyp: Tubular adenoma. Clinical Information Rectal bleeding Gross Description The specimen is received in formalin with the patient's name and ascending polyp and consists of a single gamble portion of soft tissue measuring 0.6 cm in greatest dimension. The specimen is entirely submitted cassette A1. CPT Codes 88 305 Specimen: [id number] Received: 05/23/24 Status: ANTONINA Laurie Num: [id number] Spec Type: Surgical Subm Dr: Sadiq Barton MD Tissues: A Colon Biopsy (ASCENDING POLYP) Procedures: , Gross/Micro L4 Patient: James Weaver [id number] (Continued) Signed (signature on file) Adrian Castorena MD 05/25/[address] [place] [address] Physician GroupNo Panel InformationOrdered By: Sadiq Barton on 25-27-2601Krkaiqx Glucose CommentGlu2: cleaned meterCrystal Clinic Orthopedic CenterActivated partial thromboplastin time (aPTT) in platelet poor plasma by coagulation aOrdered By: Fernando Diamond on 44-00-8944iHHB Coag (PPP) [Time]31.1 s25.1-36.5FOhioHealth Grant Medical CenterBasophils Auto (Bld) [#/Vol]Ordered By: Fernando Diamond on 26-50-1878Ahkhacdnx (Bld) [#/Vol]0.1 10*3/uL 0.0-0.2FOhioHealth Grant Medical CenterBasophils/100 WBC Auto (Bld)Ordered By: Fernando Diamond on 93-38-1657Nrbopwelg/100 WBC (Bld)0.9 %.[facility] Orthopedic CenterBilirubin Test strip Ql (U)Ordered By: Fernando Diamond on 51-88-6135Acrfwfuuy Ql (U)NegativeNegativeCrystal Clinic Orthopedic CenterCalcium [Mass/volume] in Serum or PlasmaOrdered By: Fernando Diamond on 03-29-3915Njqjjeh [Mass/Vol]8.8 mg/dL 8.6-10.3FOhioHealth Grant Medical CenterCarbon dioxide, total [Moles/volume] in Serum or PlasmaOrdered By: Fernando Diamond on 61-95-6206GM9 [Moles/Vol]28.3 mmol/L 21.0-31.0[facility] Orthopedic CenterChloride [Moles/volume] in Serum or PlasmaOrdered By: Fernando Diamond on 73-69-2803Lfjdftuy [Moles/Vol]103 mmol/L98-107 [facility] CenterColor Auto (U)Ordered By: Fernando Diamond on 26-30-4443Mhaoz (U)YellowYellowCrystal Clinic Orthopedic CenterCreatinine [Mass/volume] in Serum or PlasmaOrdered By: Fernando Diamond on 98-56-2530Hyzaqfznox [Mass/Vol]0.77 mg/dL0.60-1.20[facility]opedic CenterEosinophils Auto (Bld) [#/Vol]Ordered By: Fernando Diamond on 72-98-1812Tykoscdphqb (Bld) [#/Vol]0.0 10*3/uL0.0-0.45[facility]opedic CenterEosinophils/100 WBC Auto (Bld) Ordered By: Fernando Diamond on 65-64-6642Ycosiowyxts/100 WBC (Bld)0.4 %.[facility]opedic CenterErythrocyte distribution width Auto (RBC) [Ratio]Ordered By: Fernando Diamond on 97-91-8854Qgsjjpomlue distribution width (RBC) [Ratio]15.3 % 11.9-15.3FOhioHealth Grant Medical CenterFecal occult blood detection by immunochemistryOrdered By: Fernando Diamond on 91-29-8957Jtifrmhrww.gastrointestinal Ql (Stl)[facility] CenterGlucose [Mass/volume] in Serum or PlasmaOrdered By: Fernando Diamond on 66-79-4286Dewqtwo [Mass/Vol]148 mg/uA32-489 [facility]opedic CenterComment on above:ADA recommended reference rangeRandom Glucose Reference Range is dependent on time and content of last meal. Glucose of more than 200 mg/dL in a nonstressed, ambulatory subject supports the diagnosisof Diabetes Mellitus.Hematocrit Auto (Bld) [Volume fraction]Ordered By: Fernando Diamond on 30-04-5600Zsogklalus (Bld) [Volume fraction] 45.2 %34.0-46.4FOhioHealth Grant Medical CenterHemoglobin [Mass/volume] in BloodOrdered By: Fernando Diamond on 71-26-0409Svilliedtm (Bld) [Mass/Vol]15.1 g/dL 11.8-15.4FOhioHealth Grant Medical CenterKetones Auto test strip (U) [Mass/Vol] Ordered By: Fernando Diamond on 90-71-1957Ukwjxwu (U) [Mass/Vol]NegativeNegative [facility] CenterLaboratory - CoagulationOrdered By: Fernando Diamond on 21-37-6206MH Coag (PPP) [Time]11.4 s9.0-12.9[facility] Leukocytes [#/volume] corrected for nucleated erythrocytes in Blood by Automated counOrdered By: Fernando Diamond on 99-51-9991BOC corrected for nucl RBC Auto (Bld) [#/Vol]11.0 10*3/uL3.8-11.6FOhioHealth Grant Medical CenterLymphocytes Auto (Bld) [#/Vol]Ordered By: Fernando Diamond on 19-40-5832Sgiiphnwbve (Bld) [#/Vol]2.0 10*3/uL1.00-4.8[facility]opedic CenterLymphocytes/100 WBC Auto (Bld) Ordered By: Fernando Diamond on 93-67-1019Nbiwcgprnif/100 WBC (Bld)18.3 %.Grant HospitalH Auto (RBC) [Entitic mass]Ordered By: Fernando Diamond on 36-58-2788NIW (RBC) [Entitic mass]28.7 pg24.7-34.3FOhioHealth Grant Medical CenterMCHC Auto (RBC) [Mass/Vol]Ordered By: Fernando Diamond on 79-05-2606AGBV (RBC) [Mass/Vol]33.4 g/dL32.0-35.0[facility]opedic CenterMCV Auto (RBC) [Entitic vol]Ordered By: Fernando Diamond on 58-38-9861SFG (RBC) [Entitic vol]85.9 fL 80-100[facility]opedic CenterMonocyte distribution width [Entitic volume] in Blood by AutomatedOrdered By: Fernando Diamond on 21-66-8998Ryzsazru distribution width Auto (Bld) [Entitic vol]17.04 %0.00-20.00[facility]opedic CenterMonocytes Auto (Bld) [#/Vol]Ordered By: Fernando Diamond on 12-13-2022 Monocytes (Bld) [#/Vol]0.7 10*3/uL0.0-0.8[facility] Monocytes/100 WBC Auto (Bld)Ordered By: Fernando Diamond on 06-93-1647Ihvsapglf/100 WBC (Bld)6.0 %.[facility]opedic CenterNeutrophils Auto (Bld) [#/Vol] Ordered By: Fernando Diamond on 24-27-5275Hjdlqfqwaso (Bld) [#/Vol]8.1 10*3/uL1.8-7.7 [facility] [facility] CenterNeutrophils/100 WBC Auto (Bld)Ordered By: Fernando Diamond on 29-86-2040Ekimkiqdwpt/100 WBC (Bld)74.4 %.[facility] CenterNitrite Test strip Ql (U)Ordered By: Fernando Diamond on 01-03-8621Hlbtnnb Ql (U)NegativeNegativeCrystal Clinic Orthopedic CenterNo Panel InformationOrdered By: Fernando Diamond on 13-23-0134Xwanrhney GFR (CKD-EPI)> 60.0 mL/MinCrystal Clinic Orthopedic CenterPharmacy Creatinine Clearance (Chem43.59[facility] CenterNucleated erythrocytes [Presence] in Blood by Automated countOrdered By: Fernando Diamond on 75-46-2010Mxdlsfzwq RBC Auto Ql (Bld)0.1 /100{WBC}0-0.5FOhioHealth Grant Medical CenterPlatelet mean volume Auto (Bld) [Entitic vol]Ordered By: Fernando Diamond on 59-65-0056Gjisyzow mean volume (Bld) [Entitic vol]8.6 fL6.3-10.7FOhioHealth Grant Medical CenterPlatelet poor plasma international normalized ratio (INR) by coagulation assay (relatOrdered By: Fernando Diamond on 73-68-6968IOW Coag (PPP) [Relative time]1.0 {INR}[facility] Orthopedic CenterComment on above:INR Therapeutic Range A) Pre- and Peroperative OAT started two weeks before surgery. NOT HIP SURGERY: 1.5 - 2.5 HIP SURGERY: 2 - 3B) Primary and secondary prevention of venous THROMBOSIS: 2 - 3C) Active venous thrombosis, pulmonary embolismand prevention of recurrent venous thrombosis: 2 - 3D) Prevention of arterial thromboembolismincluding patients with mechanical heart valves: 3 - 4.5Platelets Auto (Bld) [#/Vol]Ordered By: Fernando Diamond on 14-66-6922Cumdptgvq (Bld) [#/Vol]276 10*3/pJ399-546BgoqvjhuiCrystal Clinic Orthopedic CenterPotassium [Moles/volume] in Serum or PlasmaOrdered By: Fernando Diamond on 54-90-5963Yjsdrzwlt [Moles/Vol]3.8 mmol/L3.5-5.1FOhioHealth Grant Medical CenterProtein Auto test strip (U) [Mass/Vol]Ordered By: Fernando Diamond on 53-70-3632Amjhknj (U) [Mass/Vol]NegativeNegativeCrystal Clinic Orthopedic CenterRBC Auto (Bld) [#/Vol]Ordered By: Fernando Diamond on 98-71-1995LBV (Bld) [#/Vol]5.26 10*6/uL3.60-5.00[facility] Centererum or plasma anion gap determinationOrdered By: Fernando Diamond on 43-71-4738Jnqfo gap [Moles/Vol] 12.5 mmol/L6.0-15.0[facility] Medical Centerodium [Moles/volume] in Serum or PlasmaOrdered By: Fernando Diamond on 22-54-9871Wrqlsn [Moles/Vol]140 mmol/L 136-145St. Mary's Medical Centerpecific gravity Auto test strip (U) [Rel density]Ordered By: Fernando Diamond on 52-00-1798Sibqnyet gravity (U) [Rel density]1.0101.001-1.030[facility] CenterUrea nitrogen [Mass/volume] in Serum or PlasmaOrdered By: Fernando Diamond on 52-35-0209Vjfx nitrogen [Mass/Vol]17 mg/dL7-25[facility] CenterUrine clarity by refractometry automatedOrdered By: Fernando Diamond on 89-57-0865Woniacf Refractometry automated (U)ClearCleSelect Medical Specialty Hospital - Southeast OhioUrine glucose measurement by automated test strip (mass/volume)Ordered By: Fernando Diamond on 68-47-3390Arlilcm Auto test strip (U) [Mass/Vol]Normal mg/dLNormalCrystal Clinic Orthopedic CenterUrine hemoglobin detection by automated test stripOrdered By: Fernando Diamond on 66-65-3564Uajcsepbxj Auto test strip Ql (U)NegativeNegative [facility] CenterUrine leukocyte esterase detection by automated test stripOrdered By: Fernando Diamond on 28-46-6455Mssnknxse esterase Auto test strip Ql (U)NegativeNegativeCrystal Clinic Orthopedic CenterUrobilinogen Auto test strip (U) [Mass/Vol]Ordered By: Fernando Diamond on 55-54-1559Dwnxxltbsfmt (U) [Mass/Vol]Normal mg/dLNormalCrystal Clinic Orthopedic CenterWBC Auto (Bld) [#/Vol]Ordered By: Fernando Diamond on 45-57-8565KMQ (Bld) [#/Vol]11.0 10*3/uL3.8-11.6 [facility]opedic CenterpH Auto test strip (U)Ordered By: Fernando Diamond on 94-62-3189kK (U)7.5 [pH]5.0-9.0[facility] CenterCBC AUTO DIFFon 13-74-7828CXNR #0.0 103/ulNormal0.0-0.1The [facility] HospitalComment on above: Performed By: #### CBC #### [facility] [address] [address] [address] Graeme WebsterBasophils/100 WBC (Bld)0.3 %Normal0.2-2.0[facility] Comment on above:Performed By: #### CBC #### [facility] [address] [address] [address] Graeme Whitley #0.3 103/ulNormal0.0-0.7The [facility] HospitalComment on above: Performed By: #### CBC #### [facility] [address] [address] [address] Graeme Prettyosinophils/100 WBC (Bld)2.5 %Normal0.9-7.0[facility] Comment on above:Performed By: #### CBC #### [facility] [address] [address] [address] Graeme Prettyrythrocyte distribution width (RBC) [Ratio]15.2 %Critically high 11.0-15.0The [facility] HospitalComment on above:Performed By: #### CBC #### [facility] [address] [address] [address] Graeme WebsterHematocrit (Bld) [Volume fraction]34.9 %Critically low36.0-48.0 The [facility] HospitalComment on above:Performed By: #### CBC #### [facility] [address] [address] [address] Graeme WebsterHemoglobin (Bld) [Mass/Vol]11.1 g/dLCritically low12.0-16.0The [facility] HospitalComment on above:Performed By: #### CBC #### [facility] [address] [place] [address] Dr. Graeme Acuña #0.05 10e3/ulCritically high0.00-0.03[facility] Comment on above:Performed By: #### CBC #### [facility] [address] [place] [address] Dr. Graeme Acuña %0.5 %Normal0.0-0.5The [facility] HospitalComment on above: Performed By: #### CBC #### [facility] [address] [place] [address] Dr. Graeme Mccord #1.1 103/ulCritically low1.2-3.8[facility] Comment on above:Performed By: #### CBC #### [facility] [address] [place] [address] Dr. Graeme Lynnhocytes/100 WBC (Bld)10.1 %Critically low20.5-60.0The [facility] HospitalComment on above:Performed By: #### CBC #### [facility] [address] [place] [address] Dr. Graeme ScottUAL DIFF REQNONormalThe Newark HospitalComment on above: Performed By: #### CBC #### [facility] [address] [place] [address] Dr. Graeme Mcadams (RBC) [Entitic mass]28.0 xtUnlzvz59.7-34.0The [facility] HospitalComment on above:Performed By: #### CBC #### [facility] [address] [place] [address] Dr. Graeme Mcadams (RBC) [Mass/Vol]31.8 g/vTDhihvs88.9-35.2The [facility] HospitalComment on above:Performed By: #### CBC #### [facility] [address] [address] [address] Graeme McadamsV (RBC) [Entitic vol]87.9 hHWovalr17.0-99.0The [facility] HospitalComment on above:Performed By: #### CBC #### [facility] [address] [place] [address] Dr. Graeme Stein #0.4 103/ulNormal0.3-0.8The [facility] HospitalComment on above:Performed By: #### CBC #### [facility] [address] [place] [address] Dr. Graeme Martínezocytes/100 WBC (Bld)3.8 %Normal1.7-12.0[facility] Comment on above:Performed By: #### CBC #### [facility] [address] [place] [address] Dr. Graeme Crowe #8.8 103/ulCritically high1.4-6.5[facility] Comment on above:Performed By: #### CBC #### [facility] [address] [place] [address] Dr. Graeme Manciniutrophils/100 WBC (Bld)82.8 %Critically high43.0-75.0The [facility] HospitalComment on above:Performed By: #### CBC #### [facility] [address] [place] [address] Dr. Graeme Oroscolet mean volume (Bld) [Entitic vol]10.9 fLNormal9.5-13.5The [facility] HospitalComment on above:Performed By: #### CBC #### [facility] [address] [place] [address] Dr. Graeme WebsterPLT171 103/awJydtub782-551Ryn [facility] HospitalComment on above: Performed By: #### CBC #### [facility] [address] [place] [address] Dr. Graeme WebsterRBC3.97 106/ulCritically low4.20-5.40The [facility] HospitalComment on above:Performed By: #### CBC #### [facility] [address] [address] [address] Graeme WebsterWBC10.6 103/ulNormal4.0-11.0The [facility] HospitalComment on above:Performed By: #### CBC #### [facility] [address] [address] [address] Graeme WebsterPOINT OF CARE GLUCOSEon 73-13-0035Blvqgqo [Mass/Vol]177 mg/dL Critically nibr49-484Wak [facility] HospitalComment on above:Performed By: #### CBC #### [facility] [address] [address] [address] Graeme WebsterPROF 14(COMP METB)on 63-60-0527Agdpzbk [Mass/Vol]2.5 g/dL Critically low3.4-5.0The [facility] HospitalComment on above:Performed By: #### CBC #### [facility] [address] [place] [address] Dr. Graeme WebsterAlbumin/Globulin [Mass ratio]0.8 {ratio}NormalThe Newark HospitalComment on above:Performed By: #### CBC #### [facility] [address] [place] [address] Dr. Graeme Stuart [Catalytic activity/Vol]53 U/UYndwhe22-364Ehx [facility] Centerment on above:Performed By: #### CBC #### [facility] [address] [address] [address] Graeme Red [Catalytic activity/Vol]94 U/LCritically zqgb41-53Cwp [facility] HospitalComment on above:Performed By: #### CBC #### [facility] [address] [place] [address] Dr. Graeme Quigley gap [Moles/Vol]12.4 mmol/LNormalThe [facility] on above:Performed By: #### CBC #### [facility] [address] [place] [address] Dr. Graeme Davison [Catalytic activity/Vol]56 U/LCritically gvih61-60Xlb [facility] HospitalComment on above:Performed By: #### CBC #### [facility] [address] [address] [address] Graeme WebsterBilirubin [Mass/Vol]0.4 mg/dLNormal0.2-1.0[facility] Comment on above:Performed By: #### CBC #### [facility] [address] [address] [address] Graeme WebsterCalcium [Mass/Vol]7.7 mg/dLCritically low8.5-10.1The [facility] HospitalComment on above:Performed By: #### CBC #### [facility] [address] [address] [address] Graeme WebsterChloride [Moles/Vol]109 mmol/LCritically epll74-979Icy [facility] HospitalComascension providence hospital on above:Performed By: #### CBC #### [facility] [address] [place] [address] Dr. Graeme WebsterCO2 [Moles/Vol]23.2 mmol/KNuzllz05.0-32.0[facility] Comment on above:Performed By: #### CBC #### [facility] [address] [address] [address] Graeme WebsterCreatinine [Mass/Vol]0.81 mg/dLNormal0.55-1.02The [facility] HospitalComment on above:Performed By: #### CBC #### [facility] [address] [address] [address] Graeme PrettyGFR-AF PALESTINIAN>60Normal>=60The [facility] HospitalComment on above:Performed By: #### CBC #### [facility] [address] [address] [address] Graeme PrettyGFR-NON AF PALESTINIAN>60Normal>=60The [facility] HospitalComment on above:Performed By: #### CBC #### [facility] [address] [address] [address] Graeme WebsterGlobulin (S) [Mass/Vol]3.2 g/dLNormalThe [facility] HospitalComment on above:Performed By: #### CBC #### [facility] [address] [address] [address] Graeme WebsterGlucose [Mass/Vol]168 mg/dLCritically wjwq67-904Drb [facility] HospitalComment on above:Performed By: #### CBC #### [facility] [address] [address] [address] Graeme WebsterPotassium [Moles/Vol]3.6 mmol/LNormal3.5-5.1[facility] Comment on above:Performed By: #### CBC #### [facility] [address] [address] [address] Graeme WebsterProtein [Mass/Vol]5.7 g/dLCritically low6.4-8.2The [facility] HospitalComment on above:Performed By: #### CBC #### [facility] [address] [address] [address] Graeme WebsterSodium [Moles/Vol]141 mmol/KTtoekg521-572Ijh [facility] Comment on above:Performed By: #### CBC #### [facility] [address] [address] [address] Graeme WebsterUrea nitrogen [Mass/Vol]16.0 mg/dLNormal7.0-18.0The [facility] HospitalComment on above:Performed By: #### CBC #### [facility] [address] [address] [address] Graeme WebsterUrea nitrogen/Creatinine [Mass ratio]19.8 mg/mgNormalThe [facility] HospitalComment on above:Performed By: #### CBC #### [facility] [address] [address] [address] Graeme Babin 93-16-9549Iesuqzfwdzm peptide B (Bld) [Mass/Vol]242.0 pg/mL Normal<=1,800.0The [facility] HospitalComment on above:Performed By: #### CBC #### [facility] [address] [place] [address] Dr. Graeme Brand JORGE LUIS 3-6on 57-29-9488ZE [Catalytic activity/Vol]81 U/L Iuccik68-059EdoCleveland ClinicComment on above:Performed By: #### CBC #### [facility] [address] [place] [address] Dr. Graeme Holt.MB [Mass/Vol]1.02 ng/mLNormal<=3.60[facility] Comment on above:Performed By: #### CBC #### [facility] [address] [place] [address] Dr. Graeme WebsterHSTROP5.9 pg/mLNormal4.0-51.3The [facility] HospitalComment on above:Result Comment: CUT-OFF POINTS HAVE BEEN ESTABLISHED BASED ON THE FOURTH UNIVERSAL DEFINITIONS OF MYOCARDIAL INFARCTION. THE UPPER REFERENCE LIMIT (URL) OF TROPONIN, DEFINED THE 99TH PERCENTILE OF cTnI DISTRIBUTION IN A REFERENCE POPULATION, HAS BEEN CONFIRMED THE DECISION THRESHOLD FOR MO DIAGNOSIS.Performed By: #### CBC #### [facility] [address] [place] [address] Dr. Graeme Harrison AUTO DIFFon 51-43-8775OXYZ #0.1 103/ulNormal0.0-0.1[facility] ClinicComment on above:Performed By: #### CBC #### [facility] [address] [place] [address] Dr. Graeme WebsterBasophils/100 WBC (Bld)0.4 %Normal0.2-2.0[facility] Comment on above:Performed By: #### CBC #### [facility] [address] [place] [address] Dr. Graeme Whitley #0.0 103/ulNormal0.0-0.7The [facility] HospitalComment on above: Performed By: #### CBC #### [facility] [address] [place] [address] Dr. Graeme Prettyosinophils/100 WBC (Bld)0.1 %Critically low0.9-7.0The [facility] HospitalComment on above:Performed By: #### CBC #### [facility] [address] [place] [address] Dr. Graeme Prettyrythrocyte distribution width (RBC) [Ratio]14.7 %Laqvzx91.0-15.0 The [facility] HospitalComment on above:Performed By: #### CBC #### [facility] [address] [place] [address] Dr. Graeme WebsterHematocrit (Bld) [Volume fraction]44.6 %Ekmjsk23.0-48.0The [facility] HospitalComment on above:Performed By: #### CBC #### [facility] [address] [place] [address] Dr. Graeme WebsterHemoglobin (Bld) [Mass/Vol]14.3 g/sYOneihh21.0-16.0The [facility] HospitalComment on above:Performed By: #### CBC #### [facility] [address] [place] [address] Dr. Graeme Acuña #0.67 10e3/ulCritically high0.00-0.03[facility] Comment on above:Performed By: #### CBC #### [facility] [address] [place] [address] Dr. Graeme Acuña %2.8 %Critically high0.0-0.5The [facility] HospitalComment on above:Performed By: #### CBC #### [facility] [address] [place] [address] Dr. Graeme Mccord #0.5 103/ulCritically low1.2-3.8[facility] Comment on above:Performed By: #### CBC #### [facility] [address] [place] [address] Dr. Graeme Lynnhocytes/100 WBC (Bld)1.9 %Critically low20.5-60.0[facility] ClinicComment on above:Performed By: #### CBC #### [facility] [address] [place] [address] Dr. Graeme ScottUAL DIFF REQNONormalThe [facility] HospitalComment on above: Performed By: #### CBC #### [facility] [address] [place] [address] Dr. Yilan ChangMCH (RBC) [Entitic mass]28.1 amYayztp92.7-34.0The [facility] HospitalComment on above:Performed By: #### CBC #### [facility] [address] [place] [address] Dr. Graeme Mcadams (RBC) [Mass/Vol]32.1 g/cLNwfqxg23.9-35.2The [facility] HospitalComment on above:Performed By: #### CBC #### [facility] [address] [place] [address] Dr. Graeme Mcadams (RBC) [Entitic vol]87.6 dUZvfgre55.0-99.0The [facility] HospitalComment on above:Performed By: #### CBC #### [facility] [address] [place] [address] Dr. Graeme Stein #0.7 103/ulNormal0.3-0.8The [facility] HospitalComment on above:Performed By: #### CBC #### [facility] [address] [place] [address] Dr. Graeme Martínezocytes/100 WBC (Bld)3.0 %Normal1.7-12.0[facility] Comment on above:Performed By: #### CBC #### [facility] [address] [place] [address] Dr. Graeme Crowe #21.7 103/ulCritically high1.4-6.5[facility] Comment on above:Performed By: #### CBC #### [facility] [address] [place] [address] Dr. Graeme Manciniutrophils/100 WBC (Bld)91.8 %Critically high43.0-75.0The [facility] HospitalComment on above:Performed By: #### CBC #### [facility] [address] [place] [address] Dr. Graeme Oroscolet mean volume (Bld) [Entitic vol]10.0 fLNormal9.5-13.5The [facility] HospitalComment on above:Performed By: #### CBC #### [facility] [address] [address] [address] Graeme WebsterPLT237 103/txDhfwts117-217Nff [facility] HospitalComment on above: Performed By: #### CBC #### [facility] [address] [address] [address] Graeme WebsterRBC5.09 106/ulNormal4.20-5.40The [facility] HospitalComment on above:Performed By: #### CBC #### [facility] [address] [address] [address] Graeme WebsterWBC23.7 103/ulCritically high4.0-11.0The [facility] HospitalComment on above:Performed By: #### CBC #### [facility] [address] [address] [address] Graeme Quach CHEST WO W CONon 04-93-3400PWZ CHEST WO W CONEXAMINATION: CTA CHEST WO W CON HISTORY: SHORTNESS OF BREATH [...] recommended to document stability Electronically authenticated by: ADNTE LAMAS Date: 2022-04-30 13:55NormalThe Cedar HospitalCULTURE BLOODon 29-11-5640Agcvpzhuvlf examination of blood, cultureCulture Observations: NO GROWTH AT 5 DAYS.NormalCleveland ClinicComment on above:Performed By: #### BLDCX2 #### [facility] [address] [place] [address] Dr. Graeme WebsterMicroscopic examination of blood, cultureCulture Observations: NO GROWTH AT 5 DAYS.NormalCleveland ClinicComment on above:Performed By: #### LACT #### [facility] [address] [place] [address] Dr. Graeme WebsterCoviharlan-19 PCR ([facility])on 66-63-7212VWBR-CoV-2 (COVID-19) RNA ELVIA+probe Ql (Unsp spec)Not detectedNormalNOT DETECTEDCleveland Clinic Comment on above:Result Comment: When diagnostic testing is negative, the [...] for this test is supported by the Fire Supervisor of Health and Human Service's declaration that circumstances exist to justify the emergency use of in vitro diagnostics for the detection and/or diagnosis of the virus that causes COVID-19. This EUA will remain in effect for the duration of the COVID-19 declaration justifying emergency of IVDs, unless it is terminated or revoked by the FDA (after which the test may no longer be used).Performed By: #### LACT #### [facility] [address] [place] [address] Dr. Graeme Painting-DIMERon 68-92-2276G-DIMER2.04 mg/L FEUCritically high<=0.59C[facility] ClinicComment on above:Performed By: #### LACT #### [facility] [address] [place] [address] Dr. Graeme WebsterD-DIMER COMMENTSSEE [facility] on above:Result Comment: Increases in D-Dimer concentration observed with thromboembolic events [...] stress, and generalized hospitalization. Performed By: #### LACT #### [facility] [address] [place] [address] Dr. Graeme Amaro URINE PROFILEon 87-17-2667Zrwykdqaz Ql (U)NegativeNormal NEGATIVECleveland ClinicComment on above:Performed By: #### LACT #### [facility] [address] [place] [address] Dr. Graeme Olson (U)CLEARNormalCLEARCleveland ClinicComment on above: Performed By: #### LACT #### [facility] [address] [place] [address] Dr. Graeme Ireland (U)YELLOWNormalYELLOWGreene Memorial Hospital on above: Performed By: #### LACT #### [facility] [address] [place] [address] Dr. Graeme Liz micrscopic examination will be performed if indicated. NormalCleveland ClinicComment on above:Performed By: #### LACT #### [facility] [address] [place] [address] Dr. Graeme WebsterGlucose Ql (U)100 mg/dlAbnormalNEGATIVECleveland Clinic Comment on above:Performed By: #### LACT #### [facility] [address] [place] [address] Dr. Graeme WebsterHemoglobin Ql (U)NegativermalNEGATIVECleveland Clinic Comment on above:Performed By: #### LACT #### [facility] [address] [place] [address] Dr. Graeme Rutledge Ql (U)15 mg/dlAbnormalNEGATIVECleveland Clinic Comment on above:Performed By: #### LACT #### [facility] [address] [place] [address] Dr. Graeme WebsterLEUKOCYTESNegativeNormalNEGATIVEThe [facility] HospitalComment on above:Performed By: #### LACT #### [facility] [address] [place] [address] Dr. Graeme Mcdowelltresperanza Ql (U)NegativeNormalNEGATIVEThe [facility] HospitalComment on above:Performed By: #### LACT #### [facility] [address] [place] [address] Dr. Graeme WebsterpH (U)6.5 [pH]Normal5-9The [facility] HospitalComment on above: Performed By: #### LACT #### [facility] [address] [place] [address] Dr. Graeme WebsterSPEC GRAVITY1.435Upbbzd7.005-<=1.025The [facility] HospitalComment on above:Performed By: #### LACT #### [facility] [address] [place] [address] Dr. Graeme Lainez PROTEINNegativeNormalNEGATIVE/ TRACEThe [facility] Comment on above:Performed By: #### LACT #### [facility] [address] [place] [address] Dr. Graeme Reyes MICRO INDNOT INDICATEDNormalThe [facility] HospitalComment on above:Performed By: #### LACT #### [facility] [address] [place] [address] Dr. Graeme Valentinebilinogen Qn (U)0.2 {Anabella'U}/dLNormal0.2 - 1.0The [facility] HospitalComment on above:Performed By: #### LACT #### [facility] [address] [place] [address] Dr. Graeme WebsterLACTATE/LACTIC ACIDon 20-42-8234Bloaanf [Moles/Vol]3.9 mmol/L Critically high0.4-1.9C[facility] ClinicComment on above:Result Comment: repeatedPerformed By: #### CBC #### [facility] [address] [address] [address] Graeme Hendersonctate [Moles/Vol]2.8 mmol/LCritically high0.4-1.9The [facility] HospitalComment on above:Performed By: #### LACT #### [facility] [address] [address] [address] Graeme Hendersonctate [Moles/Vol]4.9 mmol/LCritically high0.4-1.9The [facility] HospitalComment on above:Performed By: #### LACT #### [facility] [address] [place] [address] Dr. Graeme Hendersonctate [Moles/Vol]3.5 mmol/LCritically high0.4-1.9The [facility] HospitalComment on above:Performed By: #### LACT #### [facility] [address] [place] [address] Dr. Graeme WebsterJEFFERSON H[facility] GLUCOSEon 89-34-8815Hxkkmhr [Mass/Vol]214 mg/dL Critically rhqp45-701ArgCleveland ClinicComascension providence hospital on above:Performed By: #### POCGLUC #### [facility] [address] [place] [address] Dr. Graeme WebsterGlucose [Mass/Vol]112 mg/dLCritically yzvl67-945TdkCleveland ClinicComascension providence hospital on above:Performed By: #### CBC #### [facility] [address] [place] [address] Dr. Graeme WebsterGlucose [Mass/Vol]311 mg/dLCritically xoor74-280GapCleveland ClinicComascension providence hospital on above:Performed By: #### LACT #### [facility] [address] [place] [address] Dr. Graeme WebsterGlucose [Mass/Vol]199 mg/dLCritically hakb73-228Zmy [facility] HospitalComment on above:Performed By: #### CBC #### [facility] [address] [address] [address] Graeme WebsterPROF 14(COMP METB)on 72-27-1124Wvtzxsv [Mass/Vol]3.5 g/dLNormal 3.4-5.0The [facility] HospitalComment on above:Performed By: #### CBC #### [facility] [address] [place] [address] Dr. Graeme WebsterAlbumin/Globulin [Mass ratio]1.0 {ratio}NormalThe [facility] HospitalComment on above:Performed By: #### CBC #### [facility] [address] [place], [place] [address] Dr. Graeme McgeeP [Catalytic activity/Vol]62 U/EHdifwh70-717Mww Newark HospitalComment on above:Performed By: #### CBC #### [facility] [address] [place] [address] Dr. Graeme McgeeT [Catalytic activity/Vol]15 U/FVpfkfu02-48Aye [facility] HospitalComment on above:Performed By: #### CBC #### [facility] [address] [place] [address] Dr. Graeme Quigley gap [Moles/Vol]14.7 mmol/LNormalThe [facility] Comment on above:Performed By: #### CBC #### [facility] [address] [place] [address] Dr. Graeme WebsterAST [Catalytic activity/Vol]11 U/LCritically nap07-29Vck [facility] HospitalComment on above:Performed By: #### CBC #### [facility] [address] [place] [address] Dr. Graeme WebsterBilirubin [Mass/Vol]0.9 mg/dLNormal0.2-1.0The [facility] Comment on above:Performed By: #### CBC #### [facility] [address] [place] [address] Dr. Graeme WebsterCalcium [Mass/Vol]8.5 mg/dLNormal8.5-10.1The [facility] Comment on above:Performed By: #### CBC #### [facility] [address] [address] [address] Graeme WebsterChloride [Moles/Vol]101 mmol/NMjfval86-685Pvn [facility] Comment on above:Performed By: #### CBC #### [facility] [address] [address] [address] Graeme WebsterCO2 [Moles/Vol]24.9 mmol/NXkgynn24.0-32.0The [facility] Comment on above:Performed By: #### CBC #### [facility] [address] [address] [address] Graeme WebsterCreatinine [Mass/Vol]1.02 mg/dLNormal0.55-1.02Cleveland ClinicComment on above:Performed By: #### CBC #### [facility] [address] [address] [address] Bedolla ChangEGFR-AF PALESTINIAN>60Normal>=60The [facility] HospitalComment on above:Performed By: #### CBC #### [facility] [address] [address] [address] Graeme PrettyGFR-NON AF TDOXCOAC50 mL/min/1.33c0Gbqtpqmufv low>=60The [facility] HospitalComment on above:Performed By: #### CBC #### [facility] [address] [address] [address] Graeme WebsterGlobulin (S) [Mass/Vol]3.5 g/dLNormalThe [facility] HospitalComment on above:Performed By: #### CBC #### [facility] [address] [address] [address] Graeme WebsterGlucose [Mass/Vol]274 mg/dLCritically zqfa41-984Dak [facility] HospitalComment on above:Performed By: #### CBC #### [facility] [address] [address] [address] Graeme WebsterPotassium [Moles/Vol]3.6 mmol/LNormal3.5-5.1The [facility] Comment on above:Performed By: #### CBC #### [facility] [address] [address] [address] Graeme WebsterProtein [Mass/Vol]7.0 g/dLNormal6.4-8.2The [facility] Comment on above:Performed By: #### CBC #### [facility] [address] [address] [address] Graeme WebsterSodium [Moles/Vol]137 mmol/LFjpshd540-458Doq [facility] Comment on above:Performed By: #### CBC #### [facility] [address] [address] [address] Graeme WebsterUrea nitrogen [Mass/Vol]14.0 mg/dLNormal7.0-18.0The [facility] HospitalComment on above:Performed By: #### CBC #### [facility] [address] [address] [address] Graeme King nitrogen/Creatinine [Mass ratio]13.7 mg/mgNormalThe [facility] HospitalComment on above:Performed By: #### CBC #### [facility] [address] [address] [address] Graeme Miller, HIGH SENSITIVITYon 59-48-7562CHPEWH7.4 pg/mLNormal 4.0-51.3The [facility] HospitalComment on above:Result Comment: CUT-OFF POINTS HAVE BEEN ESTABLISHED BASED ON THE FOURTH UNIVERSAL DEFINITIONS OF MYOCARDIAL INFARCTION. THE UPPER REFERENCE LIMIT (URL) OF TROPONIN, DEFINED THE 99TH PERCENTILE OF cTnI DISTRIBUTION IN A REFERENCE POPULATION, HAS BEEN CONFIRMED THE DECISION THRESHOLD FOR MO DIAGNOSIS.Performed By: #### CBC #### [facility] [address] [address] [address] Graeme Farah KIDNEYSon 10-27-1914HP KIDNEYSUltrasound kidneys, bilateral HISTORY: SHORTNESS OF BREATH COMPARISON: [...] Electronically authenticated by: TREVOR RODRIGUEZ Date: 2022-04-30 16:47NoOhioHealth Pickerington Methodist HospitalXR CHEST 1 Von [id number] CHEST 1 VEXAM: XR CHEST 1 V HISTORY: COUGH COMPARISON: None. TECHNIQUE: One view of the chest was obtained. FINDINGS: The cardiac silhouette is normal in size. Aortic atherosclerotic disease is seen. The lungs are clear. There is no significant pneumothorax or pleural effusion. No acute osseous abnormality is seen. Alex screws are seen within the right humeral head. IMPRESSION: 1. No acute cardiopulmonary abnormality. Electronically authenticated by: Abad RUTLEDGE Date: 2022-04-30 04:04[facility] MemorialQ - CULTURE,URINE,ROUTINEon [id number], URINE, ROUTINE SEE NOTEAbnormalNorthonorhealth scottsdale shea medical centern [place] Medical SpecialistComment on above:Order Comment: [facility] performed at: [facility], [facility], [address] [place] [address], [address] [place] [address], [id number], Envelope Stamping Machine Operator: Ji Fung MD [facility] Collection Date/Time: [id number] [facility] Results Received Date/Time: [id number] [facility] Reported Date/Time: [id number] Comment: CULTURE, URINE, ROUTINE Micro Number: [id number] Test Status: Final Specimen Source: Urine Specimen [...] genitalia, are considered colonizers. No further testing performed.Performed By: #### [id number] #### [facility] [address] [place], [place] [address]ASHNQDWJBON FECAL QUANTon 64-93-3918Eehjuxeafbo, Fecal, Quant. <1.87Wqtilt1.00-7.24The [facility] HospitalComment on above:Result Comment: Results verified by repeat testing . Baseline (normal) [...] from those with non-inflammatory irritable bowel syndrome (IBS).Performed By: #### CBC #### [facility] [address] [place] [address] Dr. Graeme WebsterPANCREATIC ELASTASE FECALon 02-92-0639Aprmsaoocv Elastase, Fecal 172 ug Elast./gCritically low>200The [facility] HospitalComment on above:Result Comment: Severe Pancreatic Insufficiency: <100 Moderate Pancreatic Insufficiency: 100 - 200 Normal: >200Performed By: #### CBC #### [facility] [address] [place] [address] Dr. Graeme Holm, STOOLon 41-77-0713wN, Stool6.5Critically low7.0-7.5The [facility] HospitalComment on above:Performed By: #### CBC #### [facility] [address] [place] [address] Dr. Graeme NavaOSTRIDIUM DIFFICILE PCRon 08-29-2021 difficile Toxin Gene ELVIA NegativeNormalNegativeThe Newark HospitalComment on above:Performed By: #### CBC #### [facility] [address] [place] [address] Dr. Graeme FaithLTURE STOOLon 96-54-7185ZPOAXMR STOOLCulture Observations: NO GROWTH SALMONELLA, SHIGELLA, YERSINIA, CAMPY, E.COLI 0157, OR STAPH AT 72 HRS NormalThe Newark HospitalComment on above:Performed By: #### STOOLCX #### [facility] [address] [address] [address] Graeme WebsterPatient Correspondenceon 39-47-1083Bfybxpx Correspondence [id number]#1.00CD:127NoMount St. Mary HospitalAmbulatory Clinical Summaryon 40-28-5304Ixqedusgzi Clinical Summary {57-3o-s5-91-59-3m-4t-jo-58-54-zc-85-c0-57-51-fe}CD:[id number] St. Mary HospitalGeneral Surgery Office/Clinic Noteon 21-09-4101Dxknvkq Surgery Office/Clinic NoteChief Complaint post operative follow up HPI Staff [...] 10/11/2020 Recorded SARS-CoV-2 (COVID-19) mRNA-1273 vaccine 09/20/2020 [facility] on [facility]:Result Comment: Electronically Signed By: NARENDRA CAMPO, Jessica Figueroa\Date and Time Signed: 05/29/21 10:50 EDTCBC AUTO DIFFon 95-39-1389EZNS #0.1 103/ulNormal0.0-0.1C[facility] ClinicComment on above: Performed By: #### CBC #### [facility] [address] [place] [address] Dr. Graeme Poolephils/100 WBC (Bld)0.8 %Normal0.2-2.0The [facility] Comment on above:Performed By: #### CBC #### [facility] [address] [address] [address] Graeme Whitley #0.1 103/ulNormal0.0-0.7The [facility] HospitalComment on above: Performed By: #### CBC #### [facility] [address] [address] [address] Graeme Prettyosinophils/100 WBC (Bld)0.8 %Critically low0.9-7.0The [facility] HospitalComment on above:Performed By: #### CBC #### [facility] [address] [address] [address] Graeme Prettyrythrocyte distribution width (RBC) [Ratio]14.6 %Ntybvz26.0-15.0 The [facility] HospitalComment on above:Performed By: #### CBC #### [facility] [address] [place] [address] Dr. Graeme WebsterHematocrit (Bld) [Volume fraction]39.0 %Ekqqrk58.0-48.0The [facility] HospitalComment on above:Performed By: #### CBC #### [facility] [address] [place] [address] Dr. Graeme WebsterHemoglobin (Bld) [Mass/Vol]12.6 g/nISucshm94.0-16.0The [facility] Centerment on above:Performed By: #### CBC #### [facility] [address] [place] [address] Dr. Graeme Acuña #0.08 10e3/ulCritically high0.00-0.03The [facility] Comment on above:Performed By: #### CBC #### [facility] [address] [place] [address] Dr. Graeme Acuña %0.7 %Critically high0.0-0.5The [facility] HospitalComment on above:Performed By: #### CBC #### [facility] [address] [place] [address] Dr. Graeme LynnH #2.8 103/ulNormal1.2-3.8The [facility] HospitalComment on above:Performed By: #### CBC #### [facility] [address] [place] [address] Dr. Graeme Cotamphocytes/100 WBC (Bld)23.7 %Gtkosc83.5-60.0The [facility] HospitalComment on above:Performed By: #### CBC #### [facility] [address] [address] [address] Graeme Vee DIFF REQNONormalThe [facility] Centerment on above: Performed By: #### CBC #### [facility] [address] [address] [address] Graeme Mcadams (RBC) [Entitic mass]28.9 dgYiumib89.7-34.0The [facility] HospitalComment on above:Performed By: #### CBC #### [facility] [address] [address] [address] Graeme Mcadams (RBC) [Mass/Vol]32.3 g/nSIxmzvc15.9-35.2The [facility] on above:Performed By: #### CBC #### [facility] [address] [place] [address] Dr. Graeme Mcadams (RBC) [Entitic vol]89.4 sLVtuwpb44.0-99.0The [facility] Centerment on above:Performed By: #### CBC #### [facility] [address] [place] [address] Dr. Graeme Stein #0.8 103/ulNormal0.3-0.8The [facility] on above:Performed By: #### CBC #### [facility] [address] [place] [address] Dr. Graeme Martínezocytes/100 WBC (Bld)6.8 %Normal1.7-12.0[facility] Comment on above:Performed By: #### CBC #### [facility] [address] [address] [address] Graeme Crowe #8.0 103/ulCritically high1.4-6.5ThBarnesville Hospital Comment on above:Performed By: #### CBC #### [facility] [address] [place] [address] Dr. Graeme Manciniutrophils/100 WBC (Bld)67.2 %Qnkkhz53.0-75.0The Eric HospitalComment on above:Performed By: #### CBC #### [facility] [address] [address] [address] Graeme Oroscolet mean volume (Bld) [Entitic vol]10.8 fLNormal9.5-13.5The [facility] Centerment on above:Performed By: #### CBC #### [facility] [address] [address] [address] Graeme WebsterPLT293 103/tsGpjkvw496-833Fho [facility] HospitalComment on above: Performed By: #### CBC #### [facility] [address] [place] [address] Dr. Graeme WebsterRBC4.36 106/ulNormal4.20-5.40The [facility] HospitalComment on above:Performed By: #### CBC #### [facility] [address] [place] [address] Dr. Graeme WebsterWBC11.8 103/ulCritically high4.0-11.0The [facility] HospitalComment on above:Performed By: #### CBC #### [facility] [address] [place] [address] Dr. Graeme Harrison AUTO DIFFon 39-26-8672HMLV #0.1 103/ulNormal0.0-0.1The [facility] Centerment on above:Performed By: #### CBC #### [facility] [address] [place] [address] Dr. Graeme WebsterBasophils/100 WBC (Bld)0.8 %Normal0.2-2.0The [facility] on above:Performed By: #### CBC #### [facility] [address] [place] [address] Dr. Graeme Whitley #0.1 103/ulNormal0.0-0.7The [facility] on above: Performed By: #### CBC #### [facility] [address] [place] [address] Dr. Graeme Prettyosinophils/100 WBC (Bld)1.1 %Normal0.9-7.0[facility] Comment on above:Performed By: #### CBC #### [facility] [address] [place] [address] Dr. Graeme Prettyrythrocyte distribution width (RBC) [Ratio]14.6 %Avozwe02.0-15.0 The [facility] HospitalComment on above:Performed By: #### CBC #### [facility] [address] [place] [address] Dr. Graeme WebsterHematocrit (Bld) [Volume fraction]37.9 %Yysvkw64.0-48.0The [facility] HospitalComment on above:Performed By: #### CBC #### [facility] [address] [place] [address] Dr. Graeme WebsterHemoglobin (Bld) [Mass/Vol]11.9 g/dLCritically low12.0-16.0The [facility] HospitalComment on above:Result Comment: drawn as outpatientPerformed By: #### CBC #### [facility] [address] [place] [address] Dr. Graeme Acuña #0.04 10e3/ulCritically high0.00-0.03The [facility] Comment on above:Performed By: #### CBC #### [facility] [address] [place] [address] Dr. Graeme Acuña %0.4 %Normal0.0-0.5The [facility] HospitalComment on above: Performed By: #### CBC #### [facility] [address] [place] [address] Dr. Graeme Mccord #2.7 103/ulNormal1.2-3.8The [facility] HospitalComment on above:Performed By: #### CBC #### [facility] [address] [place] [address] Dr. Graeme Cotamphocytes/100 WBC (Bld)27.1 %Sbiblm40.5-60.0The [facility] HospitalComment on above:Performed By: #### CBC #### [facility] [address] [place] [address] Dr. Graeme Vee DIFF REQNONormalThe [facility] HospitalComment on above: Performed By: #### CBC #### [facility] [address] [place] [address] Dr. Graeme Mcadams (RBC) [Entitic mass]28.3 hbWgqdqf87.7-34.0The [facility] HospitalComment on above:Performed By: #### CBC #### [facility] [address] [place] [address] Dr. Graeme Mcadams (RBC) [Mass/Vol]31.4 g/wIKzynwf41.9-35.2The [facility] HospitalComment on above:Performed By: #### CBC #### [facility] [address] [place] [address] Dr. Graeme Mcadams (RBC) [Entitic vol]90.0 rYRualaa36.0-99.0The [facility] HospitalComment on above:Performed By: #### CBC #### [facility] [address] [place] [address] Dr. Graeme Stein #0.8 103/ulNormal0.3-0.8The [facility] HospitalComment on above:Performed By: #### CBC #### [facility] [address] [place] [address] Dr. Graeme Martínezocytes/100 WBC (Bld)7.9 %Normal1.7-12.0The [facility] Comment on above:Performed By: #### CBC #### [facility] [address] [place] [address] Dr. Graeme Crowe #6.3 103/ulNormal1.4-6.5The [facility] HospitalComment on above:Performed By: #### CBC #### [facility] [address] [place] [address] Dr. Graeme Manciniutrophils/100 WBC (Bld)62.7 %Krsbeg63.0-75.0The [facility] HospitalComment on above:Performed By: #### CBC #### [facility] [address] [place] [address] Dr. Graeme Oroscolet mean volume (Bld) [Entitic vol]11.0 fLNormal9.5-13.5The [facility] HospitalComment on above:Performed By: #### CBC #### [facility] [address] [place] [address] Dr. Graeme WebsterPLT239 103/ezDjqjdq895-407Exv [facility] HospitalComment on above: Performed By: #### CBC #### [facility] [address] [place] [address] Dr. Graeme WebsterRBC4.21 106/ulNormal4.20-5.40The [facility] HospitalComment on above:Performed By: #### CBC #### [facility] [address] [place] [address] Dr. Graeme WebsterWBC10.0 103/ulNormal4.0-11.0The [facility] HospitalComment on above:Performed By: #### CBC #### [facility] [address] [place] [address] Dr. Graeme Pena Reportson 62-92-9899Xta Reports [id number]:[address] [place] [address] AUTO DIFFon 66-24-0386VWVJ #0.1 103/ulNormal0.0-0.1The [facility] HospitalComment on above:Performed By: #### CBC #### [facility] [address] [place] [address] Dr. Graeme WebsterBasophils/100 WBC (Bld)0.6 %Normal0.2-2.0The [facility] Comment on above:Performed By: #### CBC #### [facility] [address] [place] [address] Dr. Graeme Whitley #0.1 103/ulNormal0.0-0.7The [facility] HospitalComment on above: Performed By: #### CBC #### [facility] [address] [place] [address] Dr. Yilan ChangEosinophils/100 WBC (Bld)0.6 %Critically low0.9-7.0The [facility] Centerment on above:Performed By: #### CBC #### [facility] [address] [place] [address] Dr. Graeme Prettyrythrocyte distribution width (RBC) [Ratio]14.4 %Virrza98.0-15.0 The [facility] HospitalComment on above:Performed By: #### CBC #### [facility] [address] [place] [address] Dr. Graeme WebsterHematocrit (Bld) [Volume fraction]43.8 %Rbnqhz60.0-48.0The [facility] HospitalComment on above:Performed By: #### CBC #### [facility] [address] [place] [address] Dr. Graeme WebsterHemoglobin (Bld) [Mass/Vol]13.9 g/qPStjnxo59.0-16.0The [facility] HospitalComment on above:Performed By: #### CBC #### [facility] [address] [place] [address] Dr. Graeme Acuña #0.04 10e3/ulCritically high0.00-0.03The [facility] Comment on above:Performed By: #### CBC #### [facility] [address] [place] [address] Dr. Graeme Acuña %0.4 %Normal0.0-0.5The [facility] HospitalComment on above: Performed By: #### CBC #### [facility] [address] [place] [address] Dr. Graeme CotaMPH #2.3 103/ulNormal1.2-3.8The [facility] HospitalComment on above:Performed By: #### CBC #### [facility] [address] [place] [address] Dr. Graeme Cotamphocytes/100 WBC (Bld)22.8 %Gbpclx24.5-60.0The [facility] HospitalComment on above:Performed By: #### CBC #### [facility] [address] [place] [address] Dr. Graeme Vee DIFF REQNONormalThe [facility] HospitalComment on above: Performed By: #### CBC #### [facility] [address] [place] [address] Dr. Graeme Mcadams (RBC) [Entitic mass]28.2 fqGzmemw52.7-34.0The [facility] HospitalComment on above:Performed By: #### CBC #### [facility] [address] [place] [address] Dr. Graeme Mcadams (RBC) [Mass/Vol]31.7 g/wGFhrhkz45.9-35.2The [facility] HospitalComment on above:Performed By: #### CBC #### [facility] [address] [place] [address] Dr. Graeme Mcadams (RBC) [Entitic vol]88.8 sABcqrmu52.0-99.0The [facility] HospitalComment on above:Performed By: #### CBC #### [facility] [address] [place] [address] Dr. Graeme Stein #0.7 103/ulNormal0.3-0.8The [facility] HospitalComment on above:Performed By: #### CBC #### [facility] [address] [place] [address] Dr. Graeme Martínezocytes/100 WBC (Bld)6.4 %Normal1.7-12.0[facility] Comment on above:Performed By: #### CBC #### [facility] [address] [place] [address] Dr. Graeme Crowe #7.0 103/ulCritically high1.4-6.5The [facility] Comment on above:Performed By: #### CBC #### [facility] [address] [place] [address] Dr. Graeme Manciniutrophils/100 WBC (Bld)69.2 %Dsbdrm56.0-75.0The [facility] HospitalComment on above:Performed By: #### CBC #### [facility] [address] [address] [address] Graeme WebsterPlatelet mean volume (Bld) [Entitic vol]10.7 fLNormal9.5-13.5The [facility] on above:Performed By: #### CBC #### [facility] [address] [address] [address] Graeme WebsterPLT232 103/iiLvuaor838-563Eqj [facility] HospitalComment on above: Performed By: #### CBC #### [facility] [address] [place] [address] Dr. Graeme WesbterRBC4.93 106/ulNormal4.20-5.40The [facility] HospitalComment on above:Performed By: #### CBC #### [facility] [address] [place] [address] Dr. Graeme WebsterWBC10.1 103/ulNormal4.0-11.0The [facility] HospitalComment on above:Performed By: #### CBC #### [facility] [address] [place] [address] Dr. Graeme WebsterOCC BLD IMMUNO SCREENon 63-74-7845NZBPNU BLOODPositiveAbnormal NEGATIVEThe [facility] on above:Performed By: #### CBC #### [facility] [address] [place] [address] Dr. Graeme WebsterPROF CHEM 8 (BAS METB)on 20-16-8326Zqiiz gap [Moles/Vol]12.9 mmol/LNormalThe [facility] HospitalComment on above:Performed By: #### CBC #### [facility] [address] [place] [address] Dr. Graeme WebsterCalcium [Mass/Vol]8.8 mg/dLNormal8.4-10.2The [facility] Comment on above:Performed By: #### CBC #### [facility] [address] [place] [address] Dr. Graeme WebsterChloride [Moles/Vol]104 mmol/CCqapnt86-460Jzc [facility] Comment on above:Performed By: #### CBC #### [facility] [address] [address] [address] Graeme WebsterCO2 [Moles/Vol]27.6 mmol/ASerlkn06.0-30.0[facility] Comment on above:Performed By: #### CBC #### [facility] [address] [address] [address] Graeme WebsterCreatinine [Mass/Vol]0.70 mg/dLNormal0.52-1.04The [facility] HospitalComment on above:Performed By: #### CBC #### [facility] [address] [address] [address] Graeme PrettyGFR-AF PALESTINIAN>60Normal>=60The [facility] HospitalComment on above:Performed By: #### CBC #### [facility] [address] [place] [address] Dr. Graeme PrettyGFR-NON AF PALESTINIAN>60Normal>=60The [facility] HospitalComment on above:Performed By: #### CBC #### [facility] [address] [address] [address] Graeme WebsterGlucose [Mass/Vol]181 mg/dLCritically wmxl86-352Usc [facility] HospitalComment on above:Performed By: #### CBC #### [facility] [address] [address] [address] Graeme WebsterPotassium [Moles/Vol]3.5 mmol/LNormal3.4-5.0[facility] Comment on above:Performed By: #### CBC #### [facility] [address] [address] [address] Graeme WebsterSodium [Moles/Vol]141 mmol/GApizsn312-225Agj [facility] Comment on above:Performed By: #### CBC #### [facility] [address] [address] [address] Graeme WebsterUrea nitrogen [Mass/Vol]16.0 mg/dLNormal7.0-17.0The [facility] HospitalComment on above:Performed By: #### CBC #### [facility] [address] [address] [address] Graeme WebsterUrea nitrogen/Creatinine [Mass ratio]22.9 mg/mgNormalThe [facility] HospitalComment on above:Performed By: #### CBC #### [facility] [address] [address] [address] Graeme WebsterPathology Noteon 00-83-8163Vvtiffpnw Note [id number]:127[facility] HospitalOutside Colonoscopyon 72-79-9986Yjpasoe Colonoscopy [id number]#1.00CD:127[facility] HospitalPOINT OF CARE GLUCOSEon 19-99-1727Skwokri [Mass/Vol]161 mg/dLCritically fgyg31-803Xej [facility] HospitalComment on above:Performed By: #### POCGLUC #### [facility] [address] [place] [address] Dr. Graeme Pena Reportson 17-64-8478Ebc Reports [id number]:[address] [place], [place] [address]Covid-19 PCR (CVDTBH)on 18-64-9134KUDO-CoV-2 (COVID-19) RNA ELVIA+probe Ql (Unsp spec)Not detectedNormalNOT DETECTEDThe [facility] HospitalComment on above: Result Comment: This test is not yet approved or cleared by the [place] FDA. When there are no FDA-approved or cleared tests available, and other criteria are met, FDA can make tests available under an emergency access mechanism called an Emergency Use Authorization (EUA). The EUA for this test is supported by the [place] of Health and Human Service's (HHS's) declaration [...] of clinical signs and symptoms consistent with SARS-CoV-2.Performed By: #### CBC #### [facility] [address] [address] [address] Graeme Blakely 88-56-7845Cqesegr [id number]:127NoMount St. Mary HospitalAmbulatory Clinical Summaryon 49-15-7101Tyffdscvpr Clinical Summary {[id number]}CD:[id number] St. Mary HospitalGeneral Surgery Office/Clinic Noteon 68-48-7637Jmguutb Surgery Office/Clinic NoteHPI Staff New pt., referred by JOHNIE Bergeron [...] swallowing difficulties, no hearing loss, no ear infection(s),no nose bleeds. Cardiovascular: normal blood pressure, no [...] 10/11/2020 Recorded SARS-CoV-2 (COVID-19) mRNA-1273 vaccine 09/20/[address] Mary HospitalComment on above:Result Comment: Electronically Signed By: NARENDRA CAMPO, Jessica Figueroa\Date and Time Signed: 04/16/21 11:07 EDTPhysician Referralon 34-02-7284Cqavsgfom [id number]:127 [facility] Vital Signs Date TimeVital SignValuePerforming ShklfhvlfDbxfmbsy61-80-6148 13:05-0400Body .6 cmErasmo Williamson MD Work Phone: NOFulton State HospitalSwaatwnirp19-99-1261 13:05-0400Body mass index (BMI) [Ratio]24.2 kg/a0QuzopaErasmo Williamson MD Work Phone: [phone]'s HospitalUeggxzwnko17-97-2208 13:05-0400Body .96 kgErasmo Williamson MD Work Phone: [phone]'s HospitalFqmysadtib89-73-6827 13:05-0400Diastolic blood gmwhuwus00 mm[Hg]Erasmo Williamson MD Work Phone: 1(606)[employer]8936[facility]'s HospitalYwtwbewsgy47-61-1224 13:05-0400Heart rate77 /min Erasmo Williamson MD Work Phone: [phone]4737[facility] HospitalZilslsmjjf64-64-2742 13:05-0400Systolic blood nfckukpi604 mm[Hg]Erasmo Williamson MD Work Phone: [phone] HospitalNubckwogzv93-21-9252 10:10-0400Body zepagz932.56 cmDabrandonel Ambriz II Work Phone: 1(217)[address] [place], [place] 1546910-17-2025 10:10-0400 Body mass index (BMI) [Ratio]24.5 kg/v8Ixpoal Ambriz II Work Phone: 1(254)[address] [place], [place] 1546910-17-2025 10:10-0400 Body jxqkiy76.86 kgDaniel Ambriz II Work Phone: 1(240)[address] [place], [place] 1546910-17-2025 10:10-0400 Diastolic blood zzuxvrag53 mm[Hg]Conrado Ambriz II Work Phone: 1(145)[address] [place], [place] 1546910-17-2025 10:10-0400 Heart rate76 /minDaniel Ambriz II Work Phone: 1(416)[address] [place], [place] 1546910-17-2025 10:10-0400 Systolic blood ltafbehb309 mm[Hg]Conrado Ambriz II Work Phone: 1(583)[address] [place], [place] 1546908-28-2025 08:56-0400 Body cxickr110.6 cmAdonay Diop NP Work Phone: [facility]'s HospitalBfsbpbghjd04-52-8904 08:56-0400Body mass index (BMI) [Ratio]23.86 kg/m2Robyzulma Chris 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 Work Phone: 1(755)082-[address] [place], [place] [address]Tbcfctfzmi83-79-0089 08:56-0400Body .05 kgAdonay hCris 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 Work Phone: [facility] HospitalMvdjyogbwy63-79-0061 08:56-0400Diastolic blood mm[Hg]Adonay Chris 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 Work Phone: 1(523)521-[address] [place], [place] [address]Vatacjdrwn51-78-6085 08:56-0400Heart rate77 /min Adonay Diop 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 Work Phone: 1(803)406-[address] [place], [place] [address]Fbmmazfjfj65-37-7242 08:56-0400Respiratory rate16 /minAdonay Chris 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 Work Phone: 1(699)[facility] [place], [place] [address]Eakxzrhkrv98-61-6652 08:56-9500BoC6% (BldA) [Mass fraction]96 %Adonay Diop 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 Work Phone: 1(182)235-[address] [place], [place] [address]Qycmxrhlyt71-89-2603 08:56-0400Systolic blood dyotqvsb954 mm[Hg]Adonay Diop 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 Work Phone: 1(881)481-[address] [place], [place] [address]Fwtazjsvcb00-86-1141 09:39-0400Body hrabav801.56 cmDaniverito Ambriz II Work Phone: 1(015)[address] [place], [place] 1546908-22-2025 09:39-0400 Body mass index (BMI) [Ratio]24.5 kg/r2Qammyr Ambriz II Work Phone: 1(457)[address] [place], [place] 1546908-22-2025 09:39-0400 Body dfbujr44.86 kgDaniverito Ambriz II Work Phone: 1(919)[address] [place], [place] 1546908-21-2025 11:21-0400 Body ferrzo188.6 cmRobyzulma Chris 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 Work Phone: 1(494)084-[address] [place], [place] [address]Qzxgjzrlyd52-12-8276 11:21-0400Body mass index (BMI) [Ratio]24.37 kg/m2Robyzulma Chris 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 Work Phone: [address] [address]Psekrizvtt53-09-2252 11:21-0400Body jjpqne67.41 kgAdonay Diop 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 Work Phone: 1(674)[facility] [place] [address]-21-2025 11:21-0400Diastolic blood lkbmwelz94 mm[Hg]Adonay Diop 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 Work Phone: NOFulton [facility] HospitalWgxpocszih22-82-6474 11:21-0400Heart rate90 /min Adonay Diop 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 Work Phone: NOFulton [facility] HospitalItlqdngcuy82-74-1194 11:21-0400Respiratory rate16 /minRobyzulma Diop 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 Work Phone: [facility] HospitalYkwyyizczv11-32-3341 11:21-1639UqJ3% (BldA) [Mass fraction]95 %Adonay Diop 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 Work Phone: [facility] HospitalRewgddtevd97-24-6262 11:21-0400Systolic blood dlgyrwtl666 mm[Hg]Adonay Diop 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 Work Phone: 1(901)[facility]-[address] [place], [place] [address]Jrsgljgmnh34-44-6454 09:59-0400Body vqakuo817.6 cmConrado Ambriz MD Work Phone: 1(071)[facility] [place], [place] [address]Sdcsrizuxo81-03-7632 09:59-0400Body mass index (BMI) [Ratio]24.37 kg/v3HpuzauConrado Ambriz MD Work Phone: 1(324)[employer] [place], [place] [address]Vggfdfzxtg42-00-2969 09:59-0400Body fuvnxy70.41 kgConrado Ambriz MD Work Phone: 1(001)[facility]9595[facility] HospitalEajfydmvpl34-11-0300 09:59-0400Diastolic blood mm[Hg]Conrado Ambriz MD Work Phone: [facility] HospitalCyzripeuqg78-59-2418 09:59-0400Heart rate87 /min Conrado Ambriz MD Work Phone: NOFulton State HospitalDitnibkiyc66-77-8325 09:59-0400Respiratory rate17 /minDemmy Ambriz MD Work Phone: 1(787)[facility] [place], [place] [address]Twkeaotaya92-82-1877 09:59-0455YlL4% (BldA) [Mass fraction]96 %Conrado Ambriz MD Work Phone: NOF[facility] HospitalAppfsjxyda23-58-4446 09:59-0400Systolic blood snxumkyn318 mm[Hg]Conrado Ambriz MD Work Phone: 1(442)[address] [place], [place] [address]31105-13-2025 15:03-0400Body ybzhck559.56 cmConrado Ambriz II Work Phone: 1(613)[address] [place], [place] 1546904-03-2025 10:48-0400 Body ngvqaf611.6 cmConrado Ambriz MD Work Phone: 1(724)[address] [place] [employer], [place] 7631104-03-2025 10:48-0400Body mass index (BMI) [Ratio]24.2 kg/i3AevzngConrado Ambriz MD Work Phone: 1(250)[address] [place] [employer], [place] 7631104-03-2025 10:48-0400Body zqifhr63.96 kgConrado Ambriz MD Work Phone: 1(498)[address] [place] [employer], [place] 7631104-03-2025 10:48-0400Diastolic blood mm[Hg]Conrado Ambriz MD Work Phone: 1(571)[address] [place] [employer], [place] [address]31104-03-2025 10:48-0400Heart rate79 /min Conrado Ambriz MD Work Phone: 1(335)[address] [place] [employer], [place] 7631104-03-2025 10:48-3483YvJ4% (BldA) [Mass fraction]96 %Conrado Ambriz MD Work Phone: 1(442)[address] [place] [employer], [place] [address]31104-03-2025 10:48-0400Systolic blood uazdjtch079 mm[Hg]Conrado Ambriz MD Work Phone: 1(855)[address] [place] [employer], [place] 7631103-19-2025 13:53-0400Body sadrve443.56 cmConrado Ambriz II Work Phone: 1(400)[address] [place], [place] 1546903-19-2025 13:53-0400 Body mass index (BMI) [Ratio]23.8 kg/k7VilgjdConrado Ambriz II Work Phone: 1(659)[address] [place], [place] 1546903-19-2025 13:53-0400 Body dertwh11.04 kgConrado Ambriz II Work Phone: 1(216)[address] [place], [place] 1546903-19-2025 13:53-0400 Diastolic blood ipsixvut06 mm[Hg]Conrado Ambriz II Work Phone: 1(072)[address] [place], [place] 1546903-19-2025 13:53-0400 Heart rate99 /minDernestineverito Ambriz II Work Phone: [facility]03-19-2025 13:53-0400 Systolic blood sfxzobyc677 mm[Hg]Conrado Pb II Work Phone: [facility]02-27-2025 13:01-0500 Body tdsuke022.6 cmAdonay Diop 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 Work Phone: [facility] HospitalLswpewcxst30-57-8229 13:01-0500Body mass index (BMI) [Ratio]24.37 kg/m2Adonay Diop 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 Work Phone: [facility] HospitalLbqhedlnjs35-83-8585 13:01-0500Body zcvehy00.41 kgAdonay Diop 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 Work Phone: [facility] HospitalBdctldmtmx02-32-7530 13:01-0500Diastolic blood hjwhbogu35 mm[Hg]Adonay Diop 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 Work Phone: [facility] HospitalRvpatkfrlw94-44-6763 13:01-0500Heart rate73 /min Adonay Diop 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 Work Phone: [facility] HospitalXwwhssofao27-65-6003 13:01-3518YqU0% (BldA) [Mass fraction]97 %Adonay Diop 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 Work Phone: [facility] HospitalVtcounbrds84-14-9706 13:01-0500Systolic blood zukdssus119 mm[Hg]Adonay Diop 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 Work Phone: [facility] HospitalQfsevythzq06-70-3088 13:16-0500Body elrbev171.56 cmC[facility]02-05-2025 13:16-0500Body mass index (BMI) [Ratio]23.9 kg/c1YnolkdmyzCrystal Clinic Orthopedic Center02-05-2025 13:16-0500Body .2 kgC[facility] Clinic [facility]01-03-2025 10:42-0500Body height 162.6 cmConrado Ambriz MD Work Phone: [facility] HospitalXyovuzoojx96-86-7561 10:42-0500Body mass index (BMI) [Ratio]24.37 kg/g3HvpqgnConrado Ambriz MD Work Phone: NOF[facility] HospitalRiwkqulxwz83-99-7456 10:42-0500Body jkhmoh80.41 kgConrado Ambriz MD Work Phone: [facility] HospitalFcuidjgksw91-89-9928 10:42-0500Diastolic blood vhltjvbi00 mm[Hg]Conrado Ambriz MD Work Phone: NOF[facility] HospitalXpzqryjlax77-29-6247 10:42-0500Heart rate83 /min Conrado Ambriz MD Work Phone: NOF[facility] HospitalArgbqvddki03-54-6289 10:42-8882UoS7% (BldA) [Mass fraction]97 %Conrado Ambriz MD Work Phone: [facility] HospitalAnpghtkjyv44-02-6790 10:42-0500Systolic blood bdutndbl834 mm[Hg]Conrado Ambriz MD Work Phone: NOFult[facility] HospitalEosmbcheur52-39-7779 09:27-0500Body bwvrpe939.6 cmConrado Ambriz MD Work Phone: 1(003)[facility]-8746NOFulton State HospitalZgsgmmvkjy69-90-6969 09:27-0500Body mass index (BMI) [Ratio]24.03 kg/s0TtgehiConrado Ambriz MD Work Phone: NOF[facility] HospitalCzcjbpjsrd69-82-0318 09:27-0500Body pmfhyiccful91 [degF]Conrado Ambriz MD Work Phone: NO[facility] HospitalSjsvqanlum30-82-7375 09:27-0500Body .5 kg Conrado Ambriz MD Work Phone: NO[facility] HospitalVhdvbdmadc21-04-4279 09:27-0500Diastolic blood mm[Hg]Conrado Ambriz MD Work Phone: NO[facility] HospitalJhvvghkehe52-31-8755 09:27-0500Heart rate67 /min Conrado Ambriz MD Work Phone: NO[facility] HospitalTtiljvyboi64-34-6525 09:27-1058OvT7% (BldA) [Mass fraction]98 %Conrado Ambriz MD Work Phone: NOF[facility] HospitalCrdfoslpmr03-31-6491 09:27-0500Systolic blood mm[Hg]Conrado Ambriz MD Work Phone: [facility] HospitalNjvojgzwtg69-51-6027 13:24-0500Body dobjpr628.56 cmC[facility]11-04-2024 14:16-0500Body uwpamz430.6 cmMuen Hemmer PA Work Phone: [facility] HospitalImfxgoduld29-55-5530 14:16-0500Body mass index (BMI) [Ratio]24.41 kg/m7Arhgu Hemmer PA Work Phone: [facility] HospitalZffwdhkuix73-67-0017 14:16-0500Body ohxvfw50.5 kg Analy Hemmer PA Work Phone: [facility] HospitalZyxsvbhqys34-18-2336 14:16-0500Diastolic blood epwegoap84 mm[Hg]Analy Hemmer PA Work Phone: [facility] HospitalQjwgyqotui54-42-1581 14:16-0500Heart rate74 /min Analy Hemmer PA Work Phone: [facility] HospitalVcxgpuejau44-02-4881 14:16-0500Respiratory rate16 /minMuen Hemmer PA Work Phone: [facility] HospitalOhomlzjpof28-20-6934 14:16-2246PtH9% (BldA) [Mass fraction]95 %Analy Hemmer PA Work Phone: [facility] HospitalFwhjstpneb17-52-2108 14:16-0500Systolic blood rutgnmno025 mm[Hg]Analy Hemmer PA Work Phone: [facility] HospitalXxslczjbvp51-52-2349 11:13-0400Body komowk014.56 cmII Conrado Ambriz Work Phone: 1(153)[address] [place], [place] 1546910-23-2024 11:13-0400 Body mass index (BMI) [Ratio]23.8 kg/m2II Conrado Ambriz Work Phone: 1(405)[address] [place], [place] 1546910-23-2024 11:13-0400 Body zakspu54.04 kgII Conrado Ambriz Work Phone: 1(541)[address] [place], [place] 1546910-23-2024 11:13-0400 Diastolic blood ceegvzwj34 mm[Hg]II Conrado Ambriz Work Phone: 1(897)[address] [place], [place] 1546910-23-2024 11:13-0400 Heart rate69 /minII Conrado Ambriz Work Phone: 1(500)[address] [place], [place] 1546910-23-2024 11:13-0400 Systolic blood vhqsiwmw374 mm[Hg]II Conrado Ambriz Work Phone: 1(985)[address] [place], [place] 1546910-14-2024 11:08-0400 Body isdmev403.6 cmDadenice Ambriz MD Work Phone: 1(338)[address] [place] [employer], [place] 7631110-14-2024 11:08-0400Body mass index (BMI) [Ratio]24.03 kg/p1HxpxjuConrado Ambriz MD Work Phone: 1(545)[address] [place] [employer], [place] 7631110-14-2024 11:08-0400Body zgwlzy82.5 kg Conrado Ambriz MD Work Phone: 1(149)[address] [place] [employer], [place] 7631110-14-2024 11:08-0400Diastolic blood ktdfntmy68 mm[Hg]Conrado Ambriz MD Work Phone: 1(264)[employer] [place], [place] [address]Myzpgbmnlr05-69-4814 11:08-0400Heart rate75 /min Conrado Ambriz MD Work Phone: 1(154)[facility] [place], [place] [address]Riufunvfqk55-34-2703 11:08-9424CgW6% (BldA) [Mass fraction]96 %Conrado Abmriz MD Work Phone: 1(759)[facility]-[address] [place], [place] [address]Aeaixxbvwv66-23-9240 11:08-0400Systolic blood fjdpyqpr217 mm[Hg]Conrado Ambriz MD Work Phone: 1(767)[address] [place], [place] [address]Gcgurijudq20-32-7724 10:00-0400Diastolic blood tucdwecg33 mm[Hg]II Conrado Ambriz Work Phone: 1(389)[address] [place], [place] 1546909-25-2024 10:00-0400 Heart rate71 /minII Conrado Ambriz Work Phone: 1(400)[address] [place], [place] 1546909-25-2024 10:00-0400 Respiratory rate16 /minII Conrado Ambriz Work Phone: [facility]09-25-2024 10:00-0400 SaO2% (BldA) [Mass fraction]98 %II Conrado Ambriz Work Phone: [facility]09-25-2024 10:00-0400 Systolic blood ixceqmza052 mm[Hg]II Conrado Ambriz Work Phone: [facility]09-25-2024 08:50-0400 Body jprqaw357.56 cmII Conrado Ambriz Work Phone: [facility]09-25-2024 08:50-0400 Body yaywtx17.43 kgII Conrado Ambriz Work Phone: [facility]08-19-2024 10:04-0400 Body fttvni456.56 cmCrystal Clinic [facility] Center08-19-2024 10:04-0400Body mass index (BMI) [Ratio]23.8 kg/v2XxcpkvtqwCrystal Clinic Orthopedic Center08-19-2024 10:04-0400Body shvovs96.04 kgCrystal Clinic [facility]opedic Center04-17-2023 11:47-0400Diastolic blood jojjjxol55 mm[Hg]MD Fernando Diamond Work Phone: [facility]04-17-2023 11:47-0400 Heart rate71 /minMD Fernando Diamond Work Phone: [facility]04-17-2023 11:47-0400 Respiratory rate18 /minMD Fernando Diamond Work Phone: [facility]04-17-2023 11:47-0400 SaO2% (BldA) [Mass fraction]96 %MD Fernando Diamond Work Phone: [facility]04-17-2023 11:47-0400 Systolic blood pvcuymmo386 mm[Hg]MD Fernando Diamond Work Phone: [facility]04-17-2023 11:02-0400 Body adwspl583.56 cmMD Fernando Diamond Work Phone: [facility]04-17-2023 11:02-0400 Body kqnkwoxcwac34.4 [degF]MD Fernando Diamond Work Phone: [facility]04-17-2023 11:02-0400 Body jycbee04.1 kgMD Fernando Diamond Work Phone: [facility]12-22-2021 15:00-0500 Body khlitf29.6 kgCamxiomara Barton Other [facility] Derivix Other Encounters Encounter DateEncounter TypeCare ProviderFacilityStart: 06-25-2025 End: 08-46-5918Ivfupp outpatient new 30 Nola Williamson MD Work Phone: noms Yuri OtolaryngologyComment on above:Thyroid nodule (Primary Dx)Start: 06-25-2025 End: 04-25-1328nkxwiewulaRMOEAR H TIMMISNot AvailableStart: 06-14-2025 End: 12-75-1226rjupvjxxpzWtovlq Ambriz II Work Phone: 2(765)443-0524166-1792-Msciygfhg Health GastroStart: 06-14-2025 End: 87-42-5144Ucopebv encounter Sharon Mahmood APRN-[facility] Work Phone: Start: 05-15-2025 End: 63-12-0795Mgosin outpatient visit 25 minutesAz Palomares DPM Work Phone: NOMS Eliana PodiatryComment on above:Arthritis of both midfeet (Primary Dx); Bilateral foot pain; Type 2 diabetes mellitus with other neurologic complication, 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 oil heaterman insulin use (HCC); Primary osteoarthritis of left ankle; Hammertoes of both feet; Hallux limitus of left foot; Hallux limitus of right foot; Fat pad atrophy of footStart: 05-15-2025 End: 82-27-3168vpueewnauzRSMFVNDelfina Rogel AvailableStart: 05-15-2025 End: 79-98-2373Krogwd flowsheetAz MartinezIrina DPM Work Phone: noms [facility] PodiatryStart: 05-15-2025 End: 15-58-1929Uokzch flowsheetMorgan Carl-Pedroro DPM Work Phone: noms [facility] PodiatryStart: 05-09-2025 End: 38-10-8730Tecmva Melinda Ambriz MD Work Phone: [facility] Yuri Family MedinceStart: 05-09-2025 End: 61-26-4771Yvdabg Melinda Ambriz MD Work Phone: [facility] Yuri Malik MedinceStart: 05-09-2025 End: 15-99-5381dqzuvlzezaSBDLTI B BERRYNot AvailableStart: 05-01-2025 End: 36-69-5129Cxveuyidl Result EncounterAdonay Diop 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 Work Phone: NOM[facility] External Department UnsolicitedStart: 05-01-2025 End: 65-25-3184Jsbgqwvpv Result EncounterAdonay Diop 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 Work Phone: [facility] External Department UnsolicitedStart: 04-25-2025 End: 99-05-0786Yhwsla Lisa Diop 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 Work Phone: [facility] Yuri Malik MedinceStart: 04-25-2025 End: 12-31-0814Zrwtwc Lisa Diop 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 Work Phone: [facility] Family MedinceStart: 04-25-2025 End: 62-33-7868Oxpkcr outpatient visit 25 minutesAdonay Diop 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 Work Phone: [facility] Family MedinceComment on above:Impacted cerumen, right ear (Primary Dx); Environmental and seasonal allergies; Ingrowing toenailStart: 04-25-2025 End: 01-75-8971trxmwxnnknZNO C MILLERNot AvailableStart: 04-19-2025 End: 70-99-2769iejtjsuuywAxojpp Berry II Work Phone: [facility] Work Phone: Start: 04-19-2025 End: 81-61-1866Riqtdqh encounter procedureNayan Mahmood APRNNorthwest Medical Center Work Phone: Start: 04-18-2025 End: 18-84-5611Qjpqnm Lisa Diop 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 Work Phone: [facility] Family MedinceStart: 04-18-2025 End: 26-22-4764Jcigpd Lisa Diop 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 Work Phone: [facility] [facility] Family MedinceStart: 04-18-2025 End: 13-51-1947Fzluip outpatient visit 25 minutesAdonay Diop 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 Work Phone: noms Yuri Family MedinceComment on above: Environmental and seasonal allergies (Primary Dx); Impacted cerumen, right ear; Thyroid nodule ; Ingrowing toenail; Balance problemStart: 04-18-2025 End: 06-18-6814xarmljqbesCXWYamila Muñiz AvailableStart: 04-05-2025 End: 88-29-8448Ncejrs flowsheetEugene R Kubitz DPM Work Phone: noms [place] PodiatryStart: 04-05-2025 End: 67-44-6986Wrotng flowsheetEugene R Kubitz DPM Work Phone: noms [facility] PodiatryStart: 04-05-2025 End: 15-90-6036Fbmfzof encounter procedureEugene R Kubitz DPM Work Phone: noms Eliana PodiatryComment on above:Onychomycosis; Nail deformity; Type 2 diabetes mellitus with other neurologic complication, 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 detention insulin use (HCC); Localized edemaStart: 04-05-2025 End: 92-05-7625nayhfbaulkEWWAVX Mana Zavala AvailableStart: 02-04-2025 End: 72-17-2441Zejgkm Melinda Ambriz MD Work Phone: NOYJ CI FMStart: 02-04-2025 End: 95-24-9774Ftuejs Melinda Ambriz MD Work Phone: NOMS CI FMStart: 02-04-2025 End: 25-04-4820Hurykq outpatient visit 25 minutesConrado Ambriz MD Work Phone: N[facility] CI FMComment on above:Type 2 diabetes mellitus with other neurologic complication, without long-term current use of insulin (Primary Dx); Acute non-recurrent frontal sinusitis; Mixed hyperlipidemia (CMS/HCC); Acquired hypothyroidism (CMS/HCC); Type 2 diabetes mellitus with peripheral neuropathy (CMS/HCC)Start: 02-04-2025 End: 48-54-5029tmyojkgncmHTWBWW B BERRYNot AvailableStart: 01-08-2025 End: 60-15-0615dcgrgwwjcnBefunb Berry II Work Phone: [facility] Work Phone: Start: 01-08-2025 End: 17-65-5609Hhfubzi encounter procedureDadenice Ambriz II Work Phone: [facility] Work Phone: Start: 01-08-2025 End: 70-71-7868Ugliow flowsheetLouisgene Mana Morales DPM Work Phone: noms SWS PODIATRYStart: 01-08-2025 End: 54-37-9935Codynn flowsheetLouisgene Mana Morales DPM Work Phone: noms SWS PODIATRYStart: 01-08-2025 End: 36-18-1148Qxvpwxb encounter procedureEuloren Morales DPM Work Phone: [facility]oms [facility] PODIATRYComment on above:Type 2 diabetes mellitus with other neurologic complication, 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 detention insulin use (CMS/HCC); Onychomycosis; Nail deformity; Pain around toenail, left foot; Localized edemaStart: 01-08-2025 End: 89-55-4902npijdccmmyYKXXWE R Lucas AvailableStart: 12-18-2024 End: 22-83-7276IxpqjjCyudal B Berry MD Work Phone: NOMS POPULATION HEALTHComment on above:Benign essential hypertension (CMS/HCC); Acquired hypothyroidism (CMS/HCC); Degenerative disc disease, lumbarStart: 12-06-2024 End: 53-87-4143Jontsd flowsLeila JTET Work Phone: NOZU SWS ORTHOStart: 12-06-2024 End: 35-86-3647Txuxkj Tyra JETT Work Phone: noms [facility] ORTHOStart: 12-06-2024 End: 88-52-8854Mkqplm outpatient visit 15 minutesMajessica JETT Work Phone: noms SWS ORTHOComment on above:Acute pain of right shoulder (Primary Dx); Right shoulder pain, unspecified chronicity; Primary osteoarthritis of right shoulderStart: 12-06-2024 End: 51-11-8717ukjydansbzQYPGMKH J MEYERNot AvailableStart: 11-29-2024 End: 43-22-2377Itplcc Melinda Ambriz MD Work Phone: [facility] FMStart: 11-29-2024 End: 71-06-1847Hylpfd Melinda Ambriz MD Work Phone: [facility] CI FMStart: 11-29-2024 End: 73-88-5552Dycdrx outpatient visit 25 minutesConrado Ambriz MD Work Phone: [facility] CI FMComment on above:Acute non-recurrent frontal sinusitis (Primary Dx); Type 2 diabetes mellitus with other neurologic complication, without long-term current use of insulin; Psoriasis; Primary osteoarthritis of right shoulderStart: 11-29-2024 End: 32-91-7292jsltopzbpvMHPLEZ B BERRYNot AvailableStart: 11-14-2024 End: 32-10-0924wgbvwloobwQgdyek Berry II Work Phone: [facility] Work Phone: Start: 11-14-2024 End: 17-35-8514Rldbxxd encounter procedureDadenice Ambriz II Work Phone: [facility] Work Phone: Start: 10-25-2024 End: 78-07-8370Bskxzg Lisa Diop 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 Work Phone: [facility] CI FMStart: 10-25-2024 End: 18-75-1940Ohiotf Lisa Diop 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 Work Phone: no[facility] CI FMStart: 10-25-2024 End: 91-24-3555Pqrpzd outpatient visit 25 minutesAdonay Diop 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 Work Phone: noMS CI FMComment on above:Encounter for diabetic foot exam (CMS/HCC) (Primary Dx); Type 2 diabetes mellitus with other neurologic complication, without long-term current use of insulin (CMS/HCC); Neuropathic pain; Acute non-recurrent frontal sinusitis; Restless legs syndrome (RLS); Bilateral impacted cerumen; Exudative age-related macular degeneration, bilateral, with inactive choroidal neovascularization (CMS/HCC); Vitreous hemorrhage, bilateral (CMS/HCC); Inflammatory polyps of colon without complications (CMS/HCC); Inflammatory polyps of colon with rectal bleeding (CMS/HCC)Start: 10-25-2024 End: 61-45-1882thqzgczjayJYN C MILLERNot AvailableStart: 10-24-2024 End: 08-25-7090Dphjdj flowsheetEugene R Jamesz DPM Work Phone: noms SWS PODIATRYStart: 10-24-2024 End: 29-33-4770Kutarr flowsheetEugene R Kubitz DPM Work Phone: noms SWS PODIATRYStart: 10-24-2024 End: 39-99-9396Iwrqewx encounter procedureEugene Mana Ramirezz DPM Work Phone: noms SWS PODIATRYComment on above:Ingrown toenail of both feet (Primary Dx); Onychomycosis; Pain around toenail, left foot; Pain around toenail, right foot; Type 2 diabetes mellitus with other neurologic complication, 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 detention insulin use ([facility]); Localized edema; Nail deformityStart: 10-24-2024 End: 65-99-3867rudcsztzbdWZFXGX R Lucas AvailableStart: 10-15-2024 End: 46-60-6752Kegntln encounter procedureConrado Ambriz II Work Phone: [facility] Work Phone: Start: 10-15-2024 End: 49-64-6732mufxasrlogMkrpbj BerryFacility:[facility] Start: 10-03-2024 End: 35-17-1465antyxkworkAqidhkndqAdena Regional Medical Center Work Phone: Start: 10-03-2024 End: 51-95-5325Ufmcmkh encounter procedureCritical Access Hospital [facility] Work Phone: Start: 08-31-2024 End: 39-80-5612Wmgffb Melinda Ambriz MD Work Phone: [facility]OM[facility] CI FMStart: 08-31-2024 End: 48-30-2729Cfopei Melinda Ambriz MD Work Phone: [facility] CI FMStart: 08-31-2024 End: 32-64-7840toqbhkqrrmLZOOHX B BERRYNot AvailableStart: 08-31-2024 End: 93-33-9140Umkrmp outpatient visit 25 minutesDadenice Ambriz MD Work Phone: NOMS CI FMComment on above:Type 2 diabetes mellitus with other neurologic complication, without long-term current use of insulin ([facility]) (Primary Dx); Gastroesophageal reflux disease, 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 esophagitis present; Mixed stress and urge urinary incontinenceStart: 08-01-2024 End: 54-85-7204Wwojir Melinda Ambriz MD Work Phone: [facility] CI FMStart: 08-01-2024 End: 34-46-2798Vfxgsc Melinda Ambriz MD Work Phone: [facility] CI FMStart: 08-01-2024 End: 48-10-4284Rsqzqg outpatient visit 25 minutesDadenice Ambriz MD Work Phone: NOMS CI FMComment on above:Acute cystitis without hematuria (Primary Dx); Gastroesophageal reflux disease, 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 esophagitis present; Acute non-recurrent sinusitis, unspecified locationStart: 08-01-2024 End: 30-25-9652wovofguujnACGCEJ B BERRYNot AvailableStart: 07-24-2024 End: 14-02-3258eyajqupmsnBPMFOM R KUBITZNot AvailableStart: 07-24-2024 End: 85-13-7451Mmrkkl flowsheetEugene R Kubitz DPM Work Phone: noms SWS PODIATRYStart: 07-24-2024 End: 46-91-6578Rzslfx flowsheetEugene R Kubitz DPM Work Phone: noms SWS PODIATRYStart: 07-24-2024 End: 48-76-1698Sopmjul encounter procedureCritical Access Hospital Phys[facility] GroupNorth[facility] Work Phone: Start: 07-24-2024 End: 87-18-7393Malcnbx encounter procedureEugene R Kubitz DPM Work Phone: noms SWS PODIATRYComment on above:Onychomycosis (Primary Dx); Pain around toenail, left foot; Type 2 diabetes mellitus with other neurologic complication, 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 oil heaterman insulin use ([facility]); Localized edemaStart: 07-02-2024 End: 64-30-0312Iqbbpj Apryl JETT Work Phone: [facility] CI FMStart: 07-02-2024 End: 27-93-4997Vjpwbh Apryl JETT Work Phone: [facility] CI FMStart: 07-02-2024 End: 62-35-7947Vdfqynb encounter Yi JETT Work Phone: NOMS CI FMComment on above:Medicare annual wellness visit, subsequent (Primary Dx); ACP (advance care [...] inactive choroidal neovascularization (CMS/HCC); Vitreous hemorrhage, bilateral (CMS/HCC)Start: 07-02-2024 End: 99-32-1719dofoltorvbLMZUE Zulma HEMMERNot AvailableStart: 06-20-2024 End: 51-53-4268jglfooxiueCS Conrado Ambriz Work Phone: [facility] Work Phone: Start: 06-20-2024 End: 09-70-2552Pfeowoo encounter procedureII Conrado Ambriz Work Phone: [facility] Work Phone: Start: 06-11-2024 End: 31-48-6631Cnsemi flowsheetConrado Ambriz MD Work Phone: [facility] CI FMStart: 06-11-2024 End: 42-26-8521Gmyskn flowsBogdan Ambriz MD Work Phone: [facility] CI FMStart: 06-11-2024 End: 07-65-6979Xlxmok outpatient visit 25 minutesDadenice Ambriz MD Work Phone: NOM[facility] CI FMComment on above:Mixed hyperlipidemia (CMS/HCC) (Primary Dx); Type 2 diabetes mellitus with other neurologic complication, without long-term current use of insulin (CMS/HCC); Flu vaccine need; Acquired hypothyroidism (CMS/HCC); Benign essential hypertension (CMS/HCC); Acute non-recurrent sinusitis, unspecified locationStart: 95-73-4276Wjc-patient / Non-visitII Conrado Ambriz Work Phone: [facility] Work Phone: Start: 05-23-2024 End: 22-08-0139Jrgaowxth to same day surgery centerII Conrado Ambriz Work Phone: [facility] Work Phone: Start: 05-23-2024 End: 38-51-6293mtohcplagsSY Daniel Berry Work Phone: [facility] Work Phone: Start: 04-20-2024 End: 22-68-8502Fgjzdz flowsheetEugene R Kubitz DPM Work Phone: [facility] PODIATRYStart: 04-20-2024 End: 49-01-4135Nollfh flowsheetEugene R Kubitz DPM Work Phone: [facility]oms [facility] PODIATRYStart: 04-20-2024 End: 06-97-7705Bvudnlv encounter procedureEugene R Kubitz DPM Work Phone: noms [facility] PODIATRYComment on above:Onychomycosis (Primary Dx); Pain around toenail, left foot; Nail deformity; Type 2 diabetes mellitus with other neurologic complication, 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 oil heaterman insulin use (CMS/HCC); Localized edema; Ingrown toenailStart: 04-16-2024 End: 84-61-0829ifbpplklyiJeqmfvbezAdena [facility] Center Work Phone: Start: 04-16-2024 End: 61-54-4413Rzulmpa encounter procedureCritical Access Hospital Phys[facility] Work Phone: Start: 12-13-2022 End: 46-44-1033Dzrpjabkl department patient visit Fernando Diamond Work Phone: [facility] Work Phone: Start: 04-30-2022 End: 53-44-5270Rihipkpmgw and management of inpatientDR CONRADO AMBRIZFacility:H1 Start: 08-26-2021 End: 95-37-2498rwwjegjkwhHYPQKFW DITTYFacility:X3Btlzh: 08-19-2021 End: 63-72-0702dkhvmzkxtsSuqld Hykes Other [facility] [employer] Other Start: 79-01-1220UVDT visit new patientCamxiomara VOGT GastroenterologyStart: 15-38-1913Amhlxzjbt encounterDarobert DavisonG GastroenterologyStart: 16-24-2278Nklekjzhp for other preprocedural examinationDR JESSICA POWERelton Reyes HospitalStart: 05-28-2021 End: 68-57-5893hewaefajjdOV JESSICA NILLFacility:G7Enfjp: 91-27-2567zjqsutkptqGN JESSICA NILLFacility:J7Pkhal: 05-25-2021 End: 66-81-9479awhtmghdchZE JESSICA NILLFacility:H8Uoiny: 05-23-2021 End: 39-33-0418szblgpnwfdSUUNGR RODRIGUEZFacility:Z0Ypixz: 05-20-2021 End: 13-99-4197vfzlpjbnebGT JESSICA NILLFacility:Q5Qmmdk: 05-16-2021 End: 71-32-1589xmxeguzqxhAW JESSICA NILLFacility:I1Xtgwl: 05-16-2021 End: 71-92-1496Vellpjpcg for other preprocedural examinationDR JESSICA MACKEY Facility: Procedures DateProcedureProcedure DetailPerforming ClinicianStart: 51-21-6909Qowbo foot complete minimum 3 viewsMormaureen DURANM Work Phone: start: 90-46-0913Wz soft tissue head & neck real time imge Fernando Diop 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 Work Phone: Start: 00-54-6887Yojruvycby glycosylated v9vKfgnssverito Ambriz MD Work Phone: Start: 21-30-6695Ygznh dip stick/tablet rgnt non-auto w/o micrscpDaniverito Ambriz MD Work Phone: Start: 04-93-2049Dowij shoulder complete minimum 2 viewsMattkathy Alvarez PA Work Phone: Start: 79-54-1096Nqueyjuahv glycosylated g2kJbaujbverito Ambriz MD Work Phone: Start: 07-56-8230Hjetdm abdominal X-rayDaniverito Ambriz II Work Phone: Start: 43-13-5037Rkcfy dip stick/tablet rgnt non-auto w/o micrscpDaniverito Ambriz MD Work Phone: Start: 72-63-8408Xravuasdzk glycosylated a3rAukesjdenice Ambriz MD Work Phone: Start: 51-30-9538BtoompqgnafIM Conrado Ambriz Work Phone: Start: 87-95-4103Synmtkfiq for occult blood in fecesMD Fernando Diamond Work Phone: Plan of Treatment DateCare ActivityDetailAuthorStart: 52-87-9842Vaavzbrveu A1c measurement Diabetes: Hemoglobin D9YIGSK HealthcareStart: 2025 End: 42-83-8575Iwlndvm encounter etjfrjgcs24/10/2025 9:45 AM EST Procedure Visit [facility] [place] [facility] [address] [place] [phone] Az Palomares DPM [address] [place] [address] [facility] Santana PodiatryStart: 07-31-2025 End: 02-03-0530Wziwjhu encounter ufxssiwbg42/03/2025 10:30 AM EST Office Visit [facility] Rod[facility]guez [address] [place] [address] Conrado Ambriz MD [address] [place] [address] NOMS [place] Malik MedinceStart: 07-03-2025 End: 28-90-6743Cgvhrna encounter kqrvqmqfe66/05/2025 10:45 AM EST Procedure Visit [facility] [place] [facility] [address] [place], [id number] Prem Morales DPM [address] [place] [address] NOMS [place] PodiatryStart: 07-02-2025 Medicare Annual Wellness (AWV)Medicare Annual Wellness (AWV)[facility] Start: 68-68-8381Irqom screening for proteinDiabetes: Urine Protein Screening NOMS HealthcareStart: 05-15-2025 End: 34-39-1245Sxsjkdk encounter wimzdyzby61/17/2025 2:15 PM EDT Office [facility] [address] [place] [address] Az Palomares DPM [address] [place] [address] ArrivedNO [place] [facility] Comment on above:ArrivedStart: 05-09-2025 End: 76-14-0214Paynfdb encounter procedureNOMS [place] Malik MedinceComment on above:ArrivedStart: 39-41-4367Jcuznahpkg A1c measurementDiabetes: Hemoglobin A1C NOM HealthcareStart: 61-64-0016XICDF-19 Vaccine ( season)COVID-19 Vaccine ( season)NOM HealthcareStart: 94-00-5867Zztntcfbn vaccinationInfluenza Vaccine (#1)NOM HealthcareStart: 04-25-2025 End: 54-08-7136Sjkanng encounter /28/2025 9:00 AM EDT Office [facility] [address] [place] [address] Adonay Diop, 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 [address] [place] [address] ArrivedNOMS [place] Malik MedinceComment on above:ArrivedStart: 04-18-2025 End: 31-09-6429DW Thyroid glandUS thyroid Imaging Routine Thyroid nodule Expected: 04/18/2025 (Approximate), Expires: 04/18/2026[facility] Work Phone: Comment on above:Expected: 04/18/2025 (Approximate), Expires: 04/18/2026Start: 04-18-2025 End: 31-07-0505Yxrnblx encounter xvlbmupcd91/21/2025 11:00 AM EDT Office Visit [facility] [address] [place] [address] Adonay Diop, JORGE [address] [place] [address] ArrivedKAPIL Malik MedinceComment on above:ArrivedStart: 04-05-2025 End: 89-93-0243Gyuextk encounter gaauupdkz15/08/2025 1:00 PM EDT Procedure Visit [facility] [address] [place] [address] Prem Morales DPM [address] [place] [address] NahumMS HooperAmarillo PodiatryComment on above:ArrivedStart: 04-03-2025 End: 97-53-8194Rgagdym encounter /06/2025 9:45 AM EDT Procedure Visit [facility] [address] [place] [phone] Prem Morales, DPZulma [address] [place] [address] NOMS AURELIO PODIATRYStart: 40-09-7502Ingpofioad A1c measurementDiabetes: Hemoglobin R0ZBZHEFulton State HospitalStart: 02-04-2025 End: 09-38-8411Ujjbllxbvxjih metabolic 2000 panel - Serum or PlasmaComprehensive metabolic panel Lab Routine Type 2 diabetes mellitus with other neurologic complication, without long-term current use of insulin Acute non-recurrent frontal sinusitis Expected: 02/04/2025 (Approximate), Expires: 02/04/2026NONH Healthcare Work Phone: Comment on above:Expected: 02/04/2025 (Approximate), Expires: 02/04/2026Start: 02-04-2025 End: 92-80-6010Bpqikucfxry [Units/volume] in Serum or PlasmaTSH Lab Routine Acquired hypothyroidism (CMS/HCC) Expected: 02/04/2025 (Approximate), Expires: 02/04/2026NOMS HealthcareComment on above:Expected: 02/04/2025 (Approximate), Expires: 02/04/2026Start: 02-04-2025 End: 22-72-9117Opexnmq encounter procedureNOMS CI FMComment on above:Arrived Start: 01-08-2025 End: 52-55-6081Wdiknwf encounter procedureNOMS SWS PODIATRYComment on above: ArrivedStart: 12-14-2024 End: 40-93-7922Ylzxoxr encounter jvzwetrds18/18/2025 10:00 AM EDT Office Visit [facility] CI FM [address] [facility] [address] [place] [address] Conrado Ambriz MD [address] [facility] [address] [place] [address] NOMS CI FMStart: 12-06-2024 End: 40-64-0911Aebtqcr encounter xqwghobsl83/10/2025 9:45 AM EDT Office Visit [facility]THO [address] [facility] [address] [place] [address] Erasmo Alvarez PA [address] [facility] [address] [place] [address] Acute pain of right shoulder (Primary Dx); Right shoulder pain, unspecified chronicity; Primary osteoarthritis of right shoulder NOMS SWS ORTHOComment on above:Acute pain of right shoulder (Primary Dx); Right shoulder pain, unspecified chronicity; Primary osteoarthritis of right shoulderStart: 11-29-2024 End: 77-33-2174Xyoqhko encounter dqvitmjct39/03/2025 11:00 AM EDT Office Visit [facility] [address] [facility] [address] [place] [address] Conrado Ambriz MD [address] [facility] [address] [place] [address] ArrivedNOMS CI FMComment on above:ArrivedStart: 10-25-2024 End: 60-70-5197Cevjoyu encounter procedureNOMS CI FMComment on above:Arrived Start: 10-24-2024 End: 54-87-2485Nkzbrhk encounter procedureNOMS SWS PODIATRYComment on above: ArrivedStart: 09-12-2024 End: 82-67-3776Ypwpiyh encounter metucjeph74/15/2025 11:00 AM EST Office Visit [facility] [address] [place] [address] Conrado Ambriz MD [address] [place] [address] NOMS CI FMStart: 35-63-7358Krojcemvzc A1c measurementDiabetes: Hemoglobin Q6AXFLB HealthcareStart: 08-31-2024 End: 38-19-0284Mqbwwyy encounter yamsmjsok89/03/2025 10:30 AM EST Office Visit [facility] [address] [place] [address] Conrado Ambriz MD [address] [place] [address] NOMS CI FMStart: 08-01-2024 End: 98-70-1284Euzjxmq encounter fltplukzt02/04/2024 9:30 AM EST Office Visit [facility] [address] [place] [address] Conrado Ambriz MD [address] [place] [address] ArrivedNOMS CI FMComment on above:ArrivedStart: 07-24-2024 End: 25-81-4007Zxscsor encounter clyhfsumi24/26/2024 10:45 AM EST Procedure Visit [facility] [address] [place] [address] Prem Morales DPM [address] [place] [address] NOMS SWS PODIATRYStart: 07-02-2024 End: 08-53-7073Ggyomdy encounter ygxcjyjtp06/04/2024 2:00 PM EST Office Visit [facility] [address] [place] [address] Analy Hammond PA [address] [place] [address] ArrivedNOMS CI FMComment on above:ArrivedStart: 10-26-2024Medicare Annual Wellness (AWV)Medicare Annual Wellness (AWV)NOMS HealthcareStart: 10-87-4701Odbas screening for proteinDiabetes: Urine Protein ScreeningNOMS HealthcareStart: 06-11-2024 End: 07-91-9864Snbbatswghmab metabolic 2000 panel - Serum or PlasmaComprehensive metabolic panel Lab Routine Benign essential hypertension (CMS/HCC) Expected: 06/11/2024 (Approximate), Expires: 06/11/2025NOMS HealthcareComment on above: Expected: 06/11/2024 (Approximate), Expires: 06/11/2025Start: 06-11-2024 End: 17-50-9730Sufxg 1996 panel - Serum or PlasmaLipid panel Lab Routine Mixed hyperlipidemia (CMS/HCC) Expected: 06/11/2024 (Approximate), Expires:06/11/2025 NOMS HealthcareComment on above:Expected: 06/11/2024 (Approximate), Expires: 06/11/2025Start: 06-11-2024 End: 98-85-7663UXO W/REFLEX TO FT4TSH W/REFLEX TO FT4 Lab Routine Acquired hypothyroidism (CMS/HCC) Expected: 06/11/2024 (Approximate), Expires: 06/11/2025 NOMS HealthcareComment on above:Expected: 06/11/2024 (Approximate), Expires: 06/11/2025Start: 06-11-2024 End: 20-51-2819Vvedhqh encounter /14/2024 11:15 AM EDT Office Visit [facility] [address] [place] [address] Conrado Ambriz MD [address] [place] [address] [facility] FMComment on above:ArrivedStart: 05-23-2024 [facility] Centertart: 19-82-5144Xsttlxcps vaccinationInfluenza Vaccine (#1)[facility] HealthcareStart: 04-20-2024 End: 94-13-4587Gmvqkxb encounter fcdlalckk10/23/2024 9:00 AM EDT Procedure Visit [facility] [address] [place] [address] Prem Morales DPM [address] [place] [address] ArrivedREGIONAL REHABILITATION HOSPITAL PODIATRYComment on above:ArrivedStart: 15-62-3419Hthtvmxoez A1c measurementDiabetes: Hemoglobin D0FRHHCSSM Health [facility] Start: 90-51-2363Yfeqzoug screeningDiabetes: Retinopathy ScreeningTHE [facility] HealthcareStart: 68-69-8642PHgL/Tdap/Td Vaccines (1 - Tdap)DTaP/Tdap/Td Vaccines (1 - Tdap)[facility] HealthcareCBC W Auto Differential panel - BloodCBC and differential Lab Routine Benign essential hypertension (CMS/HCC) Ordered: 06/11/2024[facility] Work Phone: Comment on above:Ordered: 06/11/2024BC W Auto Differential panel - BloodCBC and differential Lab Routine Type 2 diabetes mellitus with other neurologic complication, without long-term current use of insulin Acute non-recurrent frontal sinusitis Ordered: 02/04/2025[facility] Comment on above:Ordered: 02/04/2025Patient EducationThe [facility] Work Phone: Patient referralThe [facility] Work Phone: Immunizations Immunization DateImmunizationNotesCare FuryynfsIathmeyx79-18-3267Lpmrkkagw, High-dose Seasonal, Quadrivalent, Preservative Marla Ambriz MD Work Phone: [facility] HospitalNxbvkiqghf72-03-3455xgzsdvonm virus vaccine, unspecified formulationEugene Kubitz DPM Work Phone: [facility]'s HospitalLkigvqxwnw01-31-7476Yioedhugu, High-dose Seasonal, Quadrivalent, Preservative FreeEugene Kubitz DPM Work Phone: [facility] HospitalOpgumzibjn93-10-3622qcvudqxda virus vaccine, unspecified formulationEugene Kubitz DPM Work Phone: [phone] [place], [place] [address]Dvpvcygnbt63-23-8494[employer] Bivalent Booster VaccinationEugene Kubitz DPM Work Phone: [phone] [place], [place] [address]Lrdembdszk86-40-6343Hwguxiivd, High-dose Seasonal, Quadrivalent, Preservative FreeEugene Kubitz DPM Work Phone: [facility] HospitalHgyjxehzov13-92-8647VJDIX-69 [facility] (Pfizer)MD Fernando Diamond Work Phone: [facility]10-21-2021Influenza, Seasonal, Quadrivalent, AdjuvantedEugene Kubitz DPM Work Phone: [phone] [place], [place] [address]Ixykdlsccs11-21-3335WMKKE-52 [facility] (Pfizer)MD Fernando Diamond Work Phone: [facility]01-23-2021COVID-19 mRNAFabiola (Pfizer)MD Fernando Diamond Work Phone: [facility]09-18-2020Influenza, Seasonal, Quadrivalent, AdjuvantedEugene Kubitz DPM Work Phone: [facility] HospitalXogjjvemvj88-42-9141lsrendydc, high dose seasonal, preservative-freeEugene Kubitz DPM Work Phone: [facility] HospitalMbhonuqjif47-92-9023pruxiuquthjt polysaccharide vaccine, 23 valentEugene Kubitz DPM Work Phone: [facility] HospitalMqdytokpzv09-56-7052pibmxjelu, high dose seasonal, preservative-freeEugene Kubitz DPM Work Phone: [facility] HospitalLigvkdcyad54-23-9809ygpaid vaccine recombinant Prem Kubitz DPM Work Phone: [facility] HospitalVayxtkhjpb05-59-8180gubjws vaccine recombinant Prem Kubitz DPM Work Phone: [facility] HospitalIyompnjfql12-83-9394ieairnliv, high dose seasonal, preservative-freeEugene Kubitz DPM Work Phone: [facility] HospitalLotjcibpjg50-11-5974jvvxdunafrub conjugate vaccine, 13 valentEugene Kubitz DPM Work Phone: [facility] HospitalIquhkoszbd17-16-4296ryqfbgumh, injectable, quadrivalent, preservative freeEugene Kubitz DPM Work Phone: [facility] HospitalOzneenygun71-83-2412cigvsinszsrd polysaccharide vaccine, 23 valentEugene Kubitz DPM Work Phone: [facility] HospitalCqjlocwdfi15-39-9046uvqysbxq influenza, intradermal, preservative freeEugene Kubitz DPM Work Phone: [facility] HospitalBlbcrzaqdp11-58-0512mlqxgdnbvvxw polysaccharide vaccine, 23 valentEugene Kubitz DPM Work Phone: [facility] HospitalFnvevuaclg44-56-8786ndbgxnmc influenza, intradermal, preservative freeEugene Kubitz DPM Work Phone: [facility] HospitalGfhqdemfux96-68-8191sgjajxdvwctk polysaccharide vaccine, 23 valentEugene Kubitz DPM Work Phone: [facility] HospitalVspmrenhuc41-64-3082qravgduhzlhw polysaccharide vaccine, 23 valentEugene Kubitz DPM Work Phone: [facility] Payers DatePayer CategoryPayerPolicy [id number] Health InsuranceMEDICAL MUTUAL [id number] [facility] [id number] 2021-Present [address] [place] [id number] 2001Medicare [id number] [id number] 2..2.43327[id number] 2..5.006264.2576-10-1936 [id number] 2..1.789672.3.57[id number] 2.0.1.214893.3.57[id number] 2.0.1.110229.3.57[id number] 2.840.1.523188.3.57[id number] 2.0.1.391179.3.57[id number] 2.16840.1.326847.3.57[id number] 2.840.1.209766.3.57[id number] 2.16.840.1.852822.3.57[id number] 2.16.840.1.067613.3.57[id number] 2.16.840.1.141967.3.57[id number] 2.16.840.1.846968.3.57[id number] 2.16.840.1.245242.3.57[id number] 2.16.840.1.048339.3.57[id number] 2.16.840.1.460140.3.57[id number] 2.16.840.1.161612.3.579.2.196205-33-6833Kklosve0860203 2.16.840.1.371134.3.579.2.579948-76-6233Fhruphm8088717 2.16.840.1.972006.3.579.2.925457-65-9419Asblpjx7819526 2.16.840.1.284404.3.579.2.128317-07-4199Yixuzdq4213270 2.16.840.1.555015.3.579.2.543179-30-8514Mqzfqqx1823609 2.16.840.1.600201.3.579.2.750276-16-8508Zphcxup1337339 2.16.840.1.034340.3.579.2.650882-09-5667Ipjrpvs6038135 2..0.1.431284.3.579.2.448647-50-4363Pvtqkmn8107897 2..0.1.512067.3.579.2.181811-18-0558Qyyfgxh0709102 2..0.1.422291.3.579.2.699284-40-2813Xtoaypz7275515 2..0.1.595334.3.579.2.1259MedicareMedicare [id number] 728vu4jr-5ky3-2117-13xb-50wa3h359341Cszb-uubTocn Pay w261l618-5ijn-31t4-3514-1j886[id number] 9anb9y9q-7k20-1192-1wm7-996268gv3839 Social History DateTypeDetailFacilityStart: 03-26-2024 End: [id number] Assigned At [facility] Derivix Other Start: 12-13-2022 End: [id number] smoking status NHISNever smoked tobacco (finding) [facility]: [id number] Assigned At [facility]: [phone] use and exposure Smokeless tobacco non-userNOMS HealthcareStart: 05-23-2024 End: [id number] beverage intakeLifetime non-drinker (finding)[facility]OMS HealthcareStart: 03-26-2024 End: [id number] of Social functionNOMS HealthcareStart: [id number] often do you need to have someone help you when you read instructions, pamphlets, or other written material from your doctor or pharmacy [SILS] SometimesNOMS HealthcareWithin the last year, have you been afraid of your partner or ex-partner?NoNOMS HealthcareAre you now , , , , never or living with a partner?WidowedNOMS HealthcareHow often to you have a drink containing alcohol?NeverNOMS HealthcareDo you feel stress - tense, restless, nervous, or anxious, or unable to sleep at night because yourmind is troubled all the time - these days [OSQ]Not at allNOMS Healthcare(I/We) worried whether (my/our) food would run out before (I/we) got money to buy more.Never trueNOMS HealthcareStart: [id number] Comment caffeine: Yes, coffee teaNOMS HealthcareStart: [phone] identity Identifies as female gender (finding)[facility] HospitalStart: 10-03-2024 End: [id number] (finding)[facility] CenterHow often do you need to have someone help you when you read instructions, pamphlets, or other written material from your doctor or pharmacy [SILS]SometimesNOMS Healthcare Goals DatePatient GoalDesired Activity/State Functional Status Ekwz[id number] Health Questionnaire 2 item (PHQ- 2) [Reported][facility] Children's [id number] Health Questionnaire 2 item (PHQ- 2) [Reported][facility]'s [id number] Health Questionnaire 2 item (PHQ- 2) [Reported][facility] Clinical Notes 05-20-2021 to 06-25-2025 Note Date & [id number] History of Present illness Narrative* Erasmo Williamson MD - 06/25/2025 1:10 PM EDT Subjective Patient ID: James Weaver is a 89 y.o. female who presents for Thyroid Nodule (Thyroid nodule US Thyroid TB 05/01/25) Pt had a thyroid US in Apr that showed a [id number] left nodule. Not TRADS graded. TSH in January normal. No h/o radiation exposure. No family h/o thyroid CA. Takes ASA. Review of Systems All other systems reviewed and are negative. Family History[1] Active Ambulatory Problems Diagnosis Date Noted Dermatophytosis of nail 01/19/2023 Diabetes mellitus with neurological manifestations (HCC) 01/19/2023 Nail deformity 01/19/2023 Pre-ulcerative calluses 01/19/2023 [...] 01/19/2023 Acquired pes planovalgus of right foot 01/19/2023 Acquired pes planovalgus of left foot 01/19/2023 Asymptomatic varicose veins 01/19/2023 Acquired hypothyroidism 02/02/2023 Altered bowel function 02/02/2023 Atopic dermatitis 02/02/2023 Benign essential hypertension 02/02/2023 Bilateral sacroiliitis 02/02/2023 Chronic constipation 02/02/2023 Irritable bowel syndrome with constipation 02/02/2023 Chronic insomnia 02/02/2023 Degenerative disc disease, lumbar 02/02/2023 Degenerative lumbar spinal stenosis 02/02/2023 Diverticulosis of sigmoid colon 02/02/2023 Entrapment of left ulnar nerve 02/02/2023 Ganglion cyst 02/02/2023 GERD (gastroesophageal reflux disease) 02/02/2023 History of partial colectomy 02/02/2023 Hyperglycemia due to type 2 diabetes mellitus (HCC) 02/02/2023 Hyperplastic polyp of large intestine 02/02/2023 Incontinence of feces 01/16/2008 Macular degeneration of both eyes 02/02/2023 Mixed hyperlipidemia 02/02/2023 Mixed stress and urge urinary incontinence 02/02/2023 Osteoarthritis of knee 02/02/2023 Other allergic rhinitis 02/02/2023 Peripheral neuralgia 02/02/2023 Pseudopolyposis of colon (HCC) 02/02/2023 Psoriasis, unspecified 02/02/2023 Restless legs syndrome (RLS) 02/02/2023 Cyst of pancreas (HCC) 02/02/2023 Renal cyst 02/02/2023 Right nephrolithiasis 02/02/2023 Sensorineural hearing loss (SNHL), bilateral 02/02/2023 Sinus arrhythmia 02/02/2023 Osteoporosis 02/02/2023 Spondylolisthesis 02/02/2023 Tinnitus 02/02/2023 Exudative age-related macular degeneration, bilateral, with inactive choroidal neovascularization (HCC) 07/02/2024 Vitreous hemorrhage, bilateral (CMS-HCC) 07/02/2024 Primary osteoarthritis of right shoulder 11/29/2024 Diarrhea 06/24/2025 Resolved Ambulatory Problems Diagnosis Date Noted Ingrown toenail of both feet 01/19/2023 Back pain 02/02/2023 Back problem 02/02/2023 Diabetes mellitus (HCC) 02/02/2023 Type 2 diabetes mellitus with other diabetic neurological complication (HCC) 02/02/2023 Type 2 diabetes mellitus with peripheral neuropathy (HCC) 02/02/2023 Diverticular disease 02/02/2023 Diverticulosis of colon 02/02/2023 Hearing loss of right ear 02/02/2023 Hematochezia 02/02/2023 Hypertension 02/02/2023 Primary generalized hypertrophic osteoarthrosis 02/02/2023 Rectal hemorrhage 02/02/2023 Tear of rotator cuff 02/02/2023 Urgency of urination 04/19/2008 Acquired hammer toe of right foot 02/02/2023 Bunion of great toe of right foot 02/02/2023 Valgus deformity of great toe 02/02/2023 Other hammer toe(s) (acquired), left foot 02/02/2023 Change in stool caliber 07/02/2024 Past Medical History: Diagnosis Date Arthritis Diverticulosis Hearing loss of right ear, unspecified hearing loss type History of being hospitalized 06/2015 History of sinus problem Knee problem Macular degeneration Onychomycosis Rotator cuff tear, left Rotator cuff tear, right Sepsis secondary to UTI (HCC) 04/30/2022 Type 2 diabetes mellitus (HCC) Visual impairment Surgical History[2] Allergies[3] Medications Ordered Prior to Encounter[4] Objective Last Recorded Vitals Vitals: 06/25/25 1305 BP: 131/69 Pulse: 77 ENT Physical Exam Constitutional Appearance: patient appears well-developed, well-nourished and well-groomed, Head and Face Appearance: head appears normal and face appears atraumatic; Ear Ear Canals: right ear canal normal; left ear canal normal; Tympanic Membranes: right tympanic membrane normal; left tympanic membrane normal; Nose External Nose: nares patent bilaterally; external nose normal; Internal Nose: septum normal; Oral Cavity/Oropharynx Tongue: normal; Oral mucosa: normal; Hard palate: normal; Soft palate: normal; Tonsils: normal; Neck Neck: neck normal; neck palpation normal; Thyroid: thyroid normal; Respiratory Inspection: breathing unlabored; normal breathing rate; Auscultation: breath sounds are clear; Cardiovascular Inspection: extremities are warm and well perfused; no peripheral edema present; Auscultation: regular rate and rhythm; Assessment/Plan Diagnoses and all orders for this visit: Thyroid nodule Other orders - Ambulatory referral to ENT Pt has a fairly small thyroid nodule. As its been 2 months since her last US, I will repeat one in 2 months. If there is any sig growth I will arrange an FNA. [1] Family History Problem Relation Name Age of Onset Stroke Mother Heart disease Father Leukemia Sister Melanoma Neg Hx [2] Past Surgical History: Procedure Laterality Date BACK [...] TUMOR EXCISION Left Fatty tumor excised shoulder [3] Allergies Allergen Reactions Hylan G-F 20 Swelling Other Reaction(s): Edema Metformin Diarrhea Moxifloxacin Hives Simvastatin GI intolerance and Nausea And Vomiting Ciprofloxacin Rash Ciprofloxacin Hcl Rash Temazepam Rash Other Reaction(s): rash, sore mouth Wound Dressing Adhesive Rash [4] Current Outpatient Medications on File Prior to Visit Medication Sig Dispense Refill amLODIPine (Norvasc) 5 MG tablet Take 1 tablet (5 mg) by mouth Daily (Patient taking differently: Take 5 mg by mouth Daily) 100 tablet 3 aspirin 81 MG EC tablet Take 81 mg by mouth Daily b complex vitamins capsule Take 1 capsule by mouth Daily benazepril (Lotensin) 20 MG tablet TAKE 1 TABLET DAILY (Patient taking differently: Take 20 mg by mouth Daily) 90 tablet 3 Calcium 250 MG capsule Take 1 tablet by mouth Daily cholecalciferol (Vitamin D-3) 25 MCG (1000 UT) capsule Take 1,000 Units by mouth Daily gabapentin (Neurontin) 300 MG capsule Take 1 capsule (300 mg) by mouth in the morning and 1 capsule(300 mg) before bedtime. 200 capsule 3 glipiZIDE (Glucotrol) 5 MG tablet Take 1 tablet (5 mg) by mouth Daily with meals AND 2 tablets (10 mg) in the evening. Take with meals. 300 tablet 3 Januvia 100 MG tablet TAKE ONE TABLET BY MOUTH EVERY DAY (Patient taking differently: Take 100 mg by mouth Daily) 90 tablet 1 levothyroxine (Synthroid, Levoxyl) 50 MCG tablet TAKE 1 TABLET DAILY (Patient taking differently: Take 50 mcg by mouth Daily) 90 tablet 3 loratadine (Claritin) 10 MG tablet TAKE 1 TABLET (10 MG) BY MOUTH DAILY. (Patient taking differently: Take 10 mg by mouth Daily) 90 tablet 1 lubiprostone (Amitiza) 8 MCG capsule Take 8 mcg by mouth in the morning. Take with meals. meloxicam (Mobic) 7.5 MG tablet TAKE 1 TABLET DAILY (Patient taking differently: Take 7.5 mg by mouth Daily) 90 tablet 3 omeprazole (PriLOSEC) [address] capsule Take 1 capsule (40 mg) by mouth in the morning. Take before meals. Do not crush or chew.. 90 capsule 3 rOPINIRole (Requip) 1 MG tablet TAKE ONE-HALF (1/2) TABLET DAILY 45 tablet 3 triamcinolone (Kenalog) 0.1 % cream Apply topically 2 (two) times a day 454 g 1 Azelastine HCl 137 MCG/SPRAY solution SPRAY 2 SPRAYS INTO EACH NOSTRIL IN THE MORNING AND BEFORE BEDTIME DIRECTED (Patient not taking: Reported on 06/25/2025) 90 mL 1 No current facility-administered medications on file prior to visit. documented in this encounterSSM Health Cardinal [facility]on Children's [id number] History of Present illness Narrative* Az HenryBridgette, DPM - 05/15/2025 2:15 PM EDT FOOT & ANKLE CLINIC VISIT CC: Foot pain, bilateral foot HPI: This 89 y.o. female with PMH indicated below presents today complaining of a pain to the top and arch of the bilateral foot for the past few years. Onset was gradual with worsening course. Pain is moderate, she notes her RLS keeps her up at night but she has increased pain with ambulation. Denies injury. Admits to increase in pain with pressure to the area. Relates occasional mild swelling but denies any redness. Patient admits to numbness and tingling to the toes. States she was previously diagnosed with neuropathy and has been taking Gabapentin for over 10 years. She relates that she does not think this is helping her pain. She does admit to infrequent sciatic type pain. She states she does have history of lumbar spine pathology with prior fusion. States she has not has spine evalaution in many years. She is diabetic type 2 with recent A1C of 7.7% on 05/09/25. Patient denies use of analgesics. States she does walk barefoot at home often but uses her older DM shoes with [employer] on a daily basis for prolonged activity. Has tried to modify shoe gear with some relief. Patient denies padding to the area. Denies trauma. Denies any other pedal complaints. PCP: Conrado Ambriz MD 05/09/25 Past Medical History: Diagnosis Date Arthritis Back problem Diverticulosis Ganglion cyst Hearing loss of right ear, unspecified hearing loss type History of being hospitalized 06/2015 3 days for surgery History of sinus problem Hypertension Knee problem Macular degeneration Onychomycosis Osteoporosis Rotator cuff tear, left Rotator cuff tear, right Sepsis secondary to UTI (HCC) 04/30/2022 Tear of rotator cuff 02/02/2023 Type 2 diabetes mellitus (HCC) Visual impairment w/corrective lenses Current Outpatient Medications Medication Sig Dispense Refill amLODIPine (Norvasc) 5 MG tablet Take 1 tablet (5 mg) by mouth Daily 100 tablet 3 aspirin 81 MG EC tablet Take 81 mg by mouth Daily Azelastine HCl 137 MCG/SPRAY solution SPRAY 2 SPRAYS INTO EACH NOSTRIL IN THE MORNING AND BEFORE BEDTIME DIRECTED 90 mL 1 b complex vitamins capsule Take 1 capsule by mouth Daily benazepril (Lotensin) 20 MG tablet TAKE 1 TABLET DAILY 90 tablet 3 Calcium 250 MG capsule Take 1 tablet by mouth Daily cholecalciferol (Vitamin D-3) 25 MCG (1000 UT) capsule Take 1,000 Units by mouth Daily gabapentin (Neurontin) 300 MG capsule Take 1 capsule (300 mg) by mouth in the morning and 1 capsule(300 mg) before bedtime. 200 capsule 3 glipiZIDE (Glucotrol) 5 MG tablet Take 1 tablet (5 mg) by mouth Daily with meals AND 2 tablets (10 mg) in the evening. Take with meals. 300 tablet 3 Januvia 100 MG tablet TAKE ONE TABLET BY MOUTH EVERY DAY 90 tablet 1 levothyroxine (Synthroid, Levoxyl) 50 MCG tablet TAKE 1 TABLET DAILY 90 tablet 3 loratadine (Claritin) 10 MG tablet Take 1 tablet (10 mg) by mouth Daily 30 tablet 2 lubiprostone (Amitiza) 8 MCG capsule Take 8 mcg by mouth in the morning. Take with meals. meloxicam (Mobic) 7.5 MG [...] (two) times a day 454 g 1 No current facility-administered medications for this visit. Allergies Allergen Reactions Hylan G-F 20 Swelling Other Reaction(s): Edema Metformin Diarrhea Moxifloxacin Hives Simvastatin GI intolerance and Nausea And Vomiting Ciprofloxacin Rash Ciprofloxacin Hcl Rash Temazepam Rash Other Reaction(s): rash, sore mouth Wound Dressing Adhesive Rash Physical examination: There were no vitals taken for this visit. On General Observation: Patient is a pleasant, cooperative, well developed 89 y.o. adult female. The patient is alert and oriented to time, place and person. Patient has normal affect and mood. Vascular: DP and PT pulses are palpable. CFT less than 3 seconds to all digits bilateral. Skin temperature is warm to warm from proximal to distal bilateral. Hair growth is not noted. Mild edema noted to dorsal aspect of midfoot L>R foot. + varicosities noted. Venous stasis dermatitis noted B/L. Neuro: Light touch intact bilateral. Protective sensation intact at all pedal sites via [place] Tatyana 5.07 monofilament bilateral. Proprioception intact at the hallux bilateral. No clonus noted. Babinski reflex not elicited bilateral. Vibratory sensation intact at hallux IPJ bilaterally. Derm: Skin thin and shiny. Toenails thickened, dystrophic, with subungual debris. Webspaces 1-4 clean, dry, intact bilateral. No rashes, subcutaneous nodules, or open lesions noted. No hyperkeratotictissue noted. Musc: Decreased medial longitudinal arch. Muscle strength is 4/5 for all muscle groups including dorsiflexors, plantarflexors, everters, and inverters bilateral. There is a palpable bony eminence andlocal effusion noted to the dorsal midfoot B/L foot. Pain is noted with palpation to the dorsal midfoot overlying 1-5th, L.R. Negative tinels with percussion to the peroneal nerve is noted over the dorsal midfoot bony prominence. Midfoot range of motion is decreased and painful with passive exam. The midfoot alignment is rectus and is rigid. There is pain with stressed inversion-eversion of the midfoot. Ankle joint ROM is decreased without pain or crepitus B/L, STJ, and MTJ ROM full without pain or crepitus bilateral. Hallux limitus noted B/L. Hammertoes 2-5 noted B/L. Fat pad atrophy noted. 05/15/25 Imaging Result: Radiographs: 3 views bilateral foot were taken and reviewed. Radiographic impression: No obvious fracture or dislocation is noted. No acute osseous changes. No osteolytic or osteoblastic lesions appreciated. No soft tissue gas. No discernible mass noted. Osteopenia noted. Significant OA of left ankle, STJ, B/L midfoot noted. Vascular calcification noted. Retro and plantar calcaneal enthesopathy noted. Hammertoes noted. 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. Assessment: Encounter Diagnoses Name Primary? Bilateral foot pain Type 2 diabetes mellitus with other neurologic complication, 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 oil heaterman insulin use (HCC) Arthritis of both midfeet Yes Primary osteoarthritis of left ankle Hammertoes of both feet Hallux limitus of left foot Hallux limitus of right foot Fat pad atrophy of foot Plan: A comprehensive history and physical examination were preformed. The patient was educated on clinical and radiographic findings, diagnosis and treatment plans. Patient state that she understands all that has been explained and all questions were answered to her apparent satisfaction. Discussed etiology and treatment options with the patient. - Patient seen and evaluated - XR obtained and reviewed with midfoot and ankle OA noted. We discussed that she does have extensive OA to bilateral foot with pain on exam to midfoot. She has some contribution to her lack of sleepdue to her RLS which she is on ropinirole for. I explained that she may need alternative medicationor dose adjustment if this is not significantly reducing her symptoms and disrupting her rest. She is to call PCP regarding this. We also discussed given her extensive back history with DJD and fusion that she could have radiculopathy contributing to her foot pain as well. We discussed that given her lack of follow up for this if she fails to improve I would recommend she contact her spine provider for assessment. - Discussed shoe gear modification, analgesics and padding. - Advised patient on continuing [employer] and use of stiff soled shoe gear. - Discussed avoidance of barefoot walking and employing use of a supportive house shoe or slipper - Discussed use of Voltaren gel as well as where to obtain and useage - Advised patient on modification of lacing patterns to decrease rubbing overlying dorsal spur formation. Follow up at next scheduled appointment. Az Palomares DPM A total of 30 minutes was spent in formulation of this note, review of charts, labs, imaging with aminimum of 50% of the time spent in face to face with with the patient. All questions and concerns were answered to the patients satisfaction. documented in this encounterSSM Health Cardinal Glennon Children's [id number] Instructions* Patient Instructions* Az Palomares DPM - 05/15/2025 2:15 PM EDT Continue supportive shoe gear and avoid barefoot walking Recommend stiff house shoe or slipper for in the home Obtain Voltaren Gel, topical over the counter pain cream for arthritis. Can apply up to 4x per day per dosing card Use of Eucerin Cream, Aquaphor, or [place] for skin hydration documented in this encounterSSM Health Cardinal Glennon Children's [id number] History of Present illness Narrative* Adonay Diop NP - 04/25/2025 9:00 AM EDT Images from the original note were not included. Subjective Patient ID: James Weaver is a 89 y.o. female who presents for No chief complaint on file.. James presenkts today for an ear cleaning of her right earsthat seem to be plugged. She has been using ear drops to help loosen up the wax. Over the past 2 weeks, how often have you been bothered by any of the following problems? Little interest or pleasure in doing things: Not at all Feeling down, depressed, or hopeless: Not at all Patient Health Questionnaire-2 Score: 0 Current Outpatient Medications on File Prior to Visit Medication Sig Dispense Refill amLODIPine (Norvasc) 5 MG tablet Take 1 tablet (5 mg) by mouth Daily 100 tablet 3 aspirin 81 MG EC tablet Take 81 mg by mouth Daily azelastine (Astelin) 0.1 % nasal spray Administer 2 sprays into each nostril in the morning and 2 sprays before bedtime. Use in each nostril as directed. 30 mL 2 b complex vitamins capsule Take 1 capsule by mouth in the morning. benazepril (Lotensin) 20 MG tablet TAKE 1 TABLET DAILY 90 tablet 3 Calcium 250 MG capsule Take 1 tablet by mouth Daily [] carbamide peroxide (Debrox) 6.5 % otic solution Administer 5 drops into affected ear(s) in the morning and 5 drops before bedtime. Do all this for 5 days. 15 mL 0 cholecalciferol (Vitamin D-3) 25 MCG (1000 UT) capsule Take 1,000 Units by mouth Daily gabapentin (Neurontin) 300 MG capsule Take 1 capsule (300 mg) by mouth in the morning and 1 capsule(300 mg) before bedtime. 200 capsule 3 glipiZIDE (Glucotrol) 5 MG tablet Take 1 tablet (5 mg) by mouth Daily with meals AND 2 tablets (10 mg) in the evening. Take with meals. 300 tablet 3 Januvia 100 MG tablet TAKE ONE TABLET BY MOUTH EVERY DAY 90 tablet 1 levothyroxine (Synthroid, Levoxyl) 50 MCG tablet TAKE 1 TABLET DAILY 90 tablet 3 lubiprostone (Amitiza) 8 MCG capsule Take 8 mcg by mouth in the morning. Take with meals. meloxicam (Mobic) 7.5 MG [...] times a day 454 g 1 [DISCONTINUED] Januvia 100 MG tablet TAKE ONE TABLET BY MOUTH EVERY DAY 90 tablet 2 No current facility-administered medications on file prior [...] for surgery History of sinus problem Hypertension Knee problem Macular degeneration Onychomycosis Osteoporosis Rotator cuff tear, left Rotator cuff tear, right Sepsis secondary to UTI (HCC) 04/30/2022 Tear of rotator cuff 02/02/2023 Type 2 diabetes mellitus (HCC) Visual impairment w/corrective lenses Past Surgical History: Procedure Laterality Date BACK SURGERY 07/28/[address] Joel BUCCAL MASS EXCISION Right CHOLECYSTECTOMY COLECTOMY [address] Marie COLONOSCOPY COLONOSCOPY W/ POLYPECTOMY 05/20/2021 COLONOSCOPY W/ POLYPECTOMY 05/23/2024 GANGLION CYST EXCISION 2001 Dr. Martini HYSTERECTOMY KNEE SURGERY Left Arthroscopy Knee- Dr. oJsé LUMBAR TRANSFORAMINAL EPIDURAL STEROID INJECTION 11/18/2020 LUMBAR [...] Left Fatty tumor excised shoulder Visit Vitals Smoking Status Never Review of Systems Constitutional: Negative. HENT: Positive for congestion, ear pain (right ear, plugged with wax) and postnasal drip. Eyes: Negative. Cardiovascular: Negative. Gastrointestinal: Negative. Genitourinary: Negative. Musculoskeletal: Negative. Skin: Negative. Neurological: Negative. Psychiatric/Behavioral: Negative. Hematological: Negative. Endocrine: Negative. Allergic/Immunologic: Positive for environmental allergies. Objective Physical Exam Vitals reviewed. Constitutional: Appearance: Normal appearance. HENT: Head: Normocephalic. Comments: Right ear canal impacted with cerumen Right Ear: External ear normal. Left Ear: Tympanic membrane, ear canal and external ear normal. Nose: Congestion present. Mouth/Throat: Pharynx: Oropharynx is clear. Eyes: Conjunctiva/sclera: Conjunctivae normal. Cardiovascular: Rate and Rhythm: Normal rate and regular rhythm. Heart sounds: Normal heart sounds. Pulmonary: Effort: Pulmonary effort is normal. Breath sounds: Normal breath sounds. Musculoskeletal: General: Normal range of motion. Comments: Ingrowing toenails Skin: General: Skin is warm and dry. Neurological: General: No focal deficit present. Mental Status: She is alert and oriented to person, place, and time. Psychiatric: Mood and Affect: Mood normal. Behavior: Behavior normal. Thought Content: Thought content normal. Judgment: Judgment normal. Assessment/Plan 1. Impacted cerumen, right ear (Primary) The pt tolerated the right ear lavage without problem, the canal is clear, TM is dull in appearance, canal is clear. No complaint of pain or discomfort following the procedure. 2. Environmental and seasonal allergies The pt states that the azelastine nasal spray did not work well for her. She stopped using it. We discussed use of claritin and its most common side effects. She is in agreement with this plan. - loratadine (Claritin) 10 MG tablet; Take 1 tablet (10 mg) by mouth Daily Dispense: 30 tablet; Refill: 2 3. Ingrowing toenail Referral sent to podiatry--Dr. Diamond in [place] per the pt request - Ambulatory referral to Podiatry; Future No follow-ups on file. documented in this encounterSSM Health Cardinal Glennon Children's [id number] Evaluation note* Diagnosis Onset Date Resolution Status Admit Date Chronic GERD acuteAugust 2024 9:32amIrritable bowel syndrome with constipationacute April 19, 2025 9:32amChronic GERDacuteOctober 2024 10:00amIrritable bowel syndrome with constipationacuteOctober 2024 10:00am [facility] Work Phone: [phone]) 894-871908-21-2025 History of Present illness Narrative* Adonay Diop NP - 04/18/2025 11:00 AM EDT Images from the original note were not included. Subjective Patient ID: James Weaver is a 89 y.o. female who presents for an ER follow up. James presents today for an Er follow up from being dizzy. She did have a fall last week and she doesn't remember falling. She is also havinfgheadaches with the dizziness. The ER did do a CT of her head. Over the past 2 weeks, how often have you been bothered by any of the following problems? Little interest or pleasure in doing things: Not at all Feeling down, depressed, or hopeless: Not at all Patient Health Questionnaire-2 Score: 0 Current Outpatient Medications on File Prior to Visit Medication Sig Dispense Refill amLODIPine (Norvasc) 5 MG tablet Take 1 tablet (5 mg) by mouth Daily 100 tablet 3 aspirin 81 MG EC tablet Take 81 mg by mouth Daily b complex vitamins capsule Take 1 capsule [...] morning and 1 capsule(300 mg) before bedtime. 200 capsule 3 glipiZIDE (Glucotrol) 5 MG tablet Take 1 tablet (5 mg) by mouth Daily with meals AND 2 tablets (10 mg) in the evening. Take with meals. 300 tablet 3 Januvia 100 MG tablet TAKE ONE TABLET BY MOUTH EVERY DAY 90 tablet 2 levothyroxine (Synthroid, Levoxyl) 50 MCG tablet TAKE 1 TABLET DAILY 90 tablet 3 lubiprostone (Amitiza) 8 MCG capsule Take 8 mcg by mouth in the morning. Take with meals. meloxicam (Mobic) 7.5 MG [...] (two) times a day 454 g 1 No current facility-administered medications on file prior [...] for surgery History of sinus problem Hypertension Knee problem Macular degeneration Onychomycosis Osteoporosis Rotator cuff tear, left Rotator cuff tear, right Sepsis secondary to UTI (HCC) 04/30/2022 Tear of rotator cuff 02/02/2023 Type 2 diabetes mellitus (HCC) Visual impairment w/corrective lenses Past Surgical History: [...] Left Fatty tumor excised shoulder Visit Vitals Smoking Status Never Review of Systems Constitutional: Negative. HENT: Positive for congestion and postnasal drip. Eyes: Negative. Respiratory: Negative. Cardiovascular: Negative. Gastrointestinal: Negative. Genitourinary: Negative. Musculoskeletal: Positive for gait problem. Skin: Negative. Psychiatric/Behavioral: Negative. Endocrine: Negative. Allergic/Immunologic: Positive for environmental allergies. Objective Physical Exam Vitals reviewed. Constitutional: Appearance: Normal appearance. HENT: Head: Normocephalic. Right Ear: External ear normal. There is impacted cerumen. Left Ear: Tympanic membrane, ear canal and external ear normal. Nose: Congestion present. Mouth/Throat: Mouth: Mucous membranes are moist. Pharynx: Posterior oropharyngeal erythema (mild) present. Eyes: Conjunctiva/sclera: Conjunctivae normal. Cardiovascular: Rate and Rhythm: Normal rate and regular rhythm. Heart sounds: Normal heart sounds. Pulmonary: Effort: Pulmonary effort is normal. Breath sounds: Normal breath sounds. Abdominal: General: Bowel sounds are normal. Palpations: Abdomen is soft. Musculoskeletal: Cervical back: Normal range of motion and neck supple. Comments: Unsteady on feet dt ingrowing toenails bilaterally Skin: General: Skin is warm and dry. Neurological: General: No focal deficit present. Mental Status: She is alert and oriented to person, place, and time. Psychiatric: Mood and Affect: Mood normal. Behavior: Behavior normal. Thought Content: Thought content normal. Judgment: Judgment normal. Assessment/Plan 1. Environmental and seasonal allergies (Primary) We discussed diagnosis and use of azelastine nasal spray. She is in agreement to try this medication. - azelastine (Astelin) 0.1 % nasal spray; Administer 2 sprays into each nostril in the morning and 2 sprays before bedtime. Use in each nostril as directed. Dispense: 30 mL; Refill: 2 2. Impacted cerumen, right ear Will have the pt use debrox drops and return to have her ears flushed next week. - carbamide peroxide (Debrox) 6.5 % otic solution; Administer 5 drops into affected ear(s) in the morning and 5 drops before bedtime. Do all this for 5 days. Dispense: 15 mL; Refill: 0 3. Thyroid nodule Discussed nodule noted with her hospital paperwork. She is in agreement to have an ultrasound of the thyroid and she will decide what she wants done when she finds out what this nodule is. - US thyroid; Future 4. Ingrowing toenail Requested a referral to Dr. Diamond at [facility] at [place]. 5. Balance problem She is encouraged to use her cane or walker at all times. She will follow up with podiatry. No follow-ups on file. documented in this [facility]08-21-2025 Instructions* Patient Instructions* Adonay Diop NP - 04/18/2025 11:00 AM EDT Thyroid ultrasound ordered. Azelastine nasal spray added. Podiatry referral sent. Debrox as ordered and return next week to have ears flushed. documented in this [facility]08-08-2025 History of Present illness Narrative* Prem Morales DPM - 04/05/2025 1:00 PM EDT Images from the original note were not included. Reason for Visit Established patient: Recheck onychomycosis/Nailcare Second Complaint: Examine diabetic shoes History of Present Illness Established patient presents to clinic for debridement of elongated, mycotic toenails. Patient is not applying any anti-fungal medication to the toenails however she is applying Kenalog 0.1% cream onthe toenails after she soaks in warm water. [...] activity. PATIENT WAS ADVISED TO CONTACT HER SCALE CLERK AT THE [employer]PENSED THE [employer] TO HER TO SEE IF WHAT THE MODIFICATION THE PATIENT WAS REQUEST. I DO NOT THINK SHE CAN MAKE MORE ROOM TO THE SHOE WITHOUT THINNING OUT HER FULL- LENGTH CUSTOM FOOT ORTHOTIC WHICH WOULD BE ILL ADVISED IN MY OPINION. documented in this encounterSSM Health Cardinal Glennon Children's [id number] History of Present illness Narrative* Conrado Ambriz MD - 02/04/2025 9:45 AM EDT Images from the original note were not included. Subjective Patient ID: James Weaver is a 89 y.o. female who presents for No chief complaint on file.. James presents today for her diabetes F/U. Her last A1c was in November and was 7.3 She is also havingsinus drainage, headache. Burning with urination for the [...] morning and 1 capsule(300 mg) before bedtime. 200 capsule 3 Januvia [...] before bedtime. Do all this for 7 days.21 capsule 0 [DISCONTINUED] glipiZIDE (Glucotrol) 5 MG tablet Take 1 tablet (5 mg) by mouth in the morning and 1tablet (5 mg) in the evening. Take before [...] History of sinus problem Hypertension ([facility]) Knee problem Macular degeneration Onychomycosis Osteoporosis ([facility]) Rotator cuff tear, left Rotator cuff tear, right Sepsis secondary to UTI ([facility]) 04/30/2022 Tear of rotator cuff 02/02/2023 Type [...] 3 months (around 05/07/2025). documented in this encounterSSM Health Cardinal Glennon Children's [id number] History of Present illness Narrative* Prem Morales DPM - 01/08/2025 9:45 AM EDT Images from the original note [...] for all weightbearing activity. documented in this encounterSSM Health Cardinal Glennon Children's [id number] History of Present illness Narrative* JOHNIE Orozco - 12/06/2024 9:45 AM EDT Images from the original note were not included. HISTORY OF PRESENT ILLNESS: EST PT James Weaver is an 89 y.o. @ female. (EST PT Samantha/ REI) (DR. AMBRIZ REFERRAL) (NEW PROBLEM) - (R) SHOULDER DISCOMFORT x2 WKS (~11/22/24) ; NKI XRAY TODAY 12/06/24 IN EPIC MELOXICAM 7.5MG BID (DR. AMBRIZ) (FOR ARTHRITIS) NOTES DIFFUSE DISCOMFORT INTO UPPER ARM. NKI. NOTED INTERMITTENT NERVE TWINGES. LIMITED ROM - NOTESHER SHOULDER HAS ALWAYS BEEN FROZEN WITH ELEVATION. ADMITS SYMPTOMS HAVE IMPROVED SINCE ~2 WKS AGO.DENIES SWELLING. DENIES NUMBNESS. ADMITS GENERALIZED TINGLING. ADMITS WEAKNESS. TYL PRN. MELOXICAM - BID. ADMITS HEATING - WITH RELIEF. NO TOPICALS. HX (R) ROTATOR CUFF REPAIR 2001 (~23 YRS) [facility] [place]ERGIES: Allergies Allergen Reactions Hylan G-F 20 [...] plan: Treatment options discussed include observation, an intra- articular cortisone injection, or surgical intervention for reverse [...] if she has increased pain for an intra- articular injection pending reevaluation. Follow-up: She was thankful [...] for requiring urgent evaluation. documented in this encounterSSM Health Cardinal Glennon Children's [id number] History of Present illness Narrative* Conrado Ambriz MD - 11/29/2024 11:00 AM EDT Images from the original note [...] capsule(300 mg) before bedtime. 180 capsule 3 glipiZIDE [...] 02/28/2025) for Routine F/U. documented in this encounterSSM Health Cardinal Glennon Children's [id number] Evaluation note* Diagnosis Onset Date Resolution Status Admit Date Chronic GERD acuteMarch 2024 1:45pmDiarrheaacuteMarch 2024 1:45pmIncontinence acuteMarch 2024 1:45pmIrritable bowel syndrome with constipationacuteMarch 2024 1:45pm [facility] Work Phone: 1(229) 232-765802-27-2025 History of Present illness Narrative* Adonay Diop [...] 02/02/2023 Type 2 diabetes mellitus ([facility]) Visual impairment w/corrective lenses Past Surgical History: Procedure Laterality Date BACK SURGERY 07/28/[address] Joel BUCCAL MASS EXCISION Right CHOLECYSTECTOMY COLECTOMY [address] Marie COLONOSCOPY COLONOSCOPY W/ POLYPECTOMY 05/20/2021 COLONOSCOPY W/ POLYPECTOMY 05/23/2024 GANGLION CYST EXCISION 2002 Dr. Martini HYSTERECTOMY KNEE SURGERY Left Arthroscopy [...] Encounter for diabetic foot exam ([facility]) (Primary) Diabetic foot exam completed today. No concerns are noted. 2. Type 2 diabetes mellitus with other neurologic complication, without long- term current use of insulin ([facility]) 06/11/24 Glucose 65 - 99 mg/dL 186 [...] No follow-ups on file. documented in this [facility]02-27-2025 Instructions* Patient Instructions* Adonay Diop NP - 10/25/2024 1:00 PM EST Add amoxicillin today Ear lavage to both ears today, clear. Ropinirole increased today. documented in this [facility]02-26-2025 History of Present illness Narrative* Prem [...] for all weightbearing activity. documented in this encounterSSM Health Cardinal Glennon Children's [id number] Evaluation note* Diagnosis Onset Date Resolution Status Admit Date Chronic GERD acuteFebruary 2024 1:11pmIrritable bowel syndrome with constipationacute October 03, 2024 1:11pmChronic GERDacuteMarch 2024 1:45pmDiarrheaacute November 14, 2024 1:45pmIncontinenceacuteMarch 2024 1:45pmIrritable bowel syndrome with constipationacuteUniversity [facility] 20[facility] 1:45pm [facility] Work Phone: 1(560) 594-431001-03-2025 History of Present illness Narrative* Conrado Ambriz [...] History of sinus problem Hypertension ([facility]/HCC) Knee problem Macular degeneration Onychomycosis Osteoporosis ([facility]) Rotator cuff tear, left Rotator cuff tear, right Sepsis secondary to UTI ([facility]/HCC) 04/30/2022 Tear of rotator cuff 02/02/2023 Type 2 diabetes mellitus ([facility]) Visual impairment w/corrective lenses Past Surgical History: [...] Final Bilirubin, UA 08/31/2024 Negative Negative - 4(70) +++ mg/dL Final Ketones, UA 08/31/2024 Negative [...] long-term current use of insulin ([facility]) - FSBS log shows good control, most recent A1C is at or near goal. Continue current treatment plan as previously outlined without changes. - This office visit was spent in consultation regarding the patient's current medical problems, differential diagnoses, testing/imaging results, and treatment options. Greater than 25 minutes was spent in [id number] consultation and coordination of care. Gastroesophageal reflux disease, 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 esophagitis present - omeprazole (PriLOSEC) [address] capsule; Take 1 capsule (40 mg) by mouth in the morning. Take before meals. Do not crush or chew.. Mixed stress and urge urinary incontinence - POCT Urinalysis dipstick Follow up in about 3 months (around 11/29/2024) for Routine F/U. documented in this encounterSSM Health Cardinal Glennon Children's [id number] History of Present illness Narrative* Conrado Ambriz [...] 02/02/2023 Type 2 diabetes mellitus ([facility]) Visual impairment w/corrective lenses Past Surgical History: [...] OTHER SURGICAL HISTORY Right R/O buccal mass 11-07-13 Dr. Williamson RADIOFREQUENCY ABLATION Left 07/08/2020 L2-L4 [...] (around 08/29/2024) for Wellness. documented in this encounterSSM Health Cardinal Glennon Children's [id number] Evaluation note* Diagnosis Onset Date Resolution Status Admit Date Irritable bowel syndrome with constipati on acuteNovember 2023 1:16pmChronic GERDacuteFebruary 2024 1:11pm Irritable bowel syndrome with constipationacuteFebruary 2024 1:11pm [facility] Work Phone: [phone]) 679-100211-04-2024 History of Present illness Narrative* JOHNIE Lal [...] 02/02/2023 Type 2 diabetes mellitus ([facility]) Visual impairment w/corrective lenses Past Surgical History: [...] long-term current use of insulin ([facility]) This is a chronic medical condition that [...] bowel function The patient is seeing a expert medical writer for this condition, treatment is deferred to that specialist. Correspondence from that specialist and any available testing were reviewed during today's visit. Chronic constipation The patient is seeing a expert medical writer for this condition, treatment is deferred to that specialist. Correspondence from that specialist and any available testing were reviewed during today's visit. Cyst of pancreas (CMS/HCC) The patient is seeing a expert medical writer for this condition, treatment is deferred to that specialist. Correspondence from that specialist and any available testing were reviewed during today's visit. Diverticulosis of sigmoid colon The patient is seeing a expert medical writer for this condition, treatment is deferred to that specialist. Correspondence from that specialist and any available testing were reviewed during today's visit. Gastroesophageal reflux disease without esophagitis The patient is seeing a expert medical writer for this condition, treatment is deferred to that specialist. Correspondence from that specialist and any available testing were reviewed during today's visit. Hyperplastic polyp of large intestine The patient is seeing a expert medical writer for this condition, treatment is deferred to that specialist. Correspondence from that specialist and any available testing were reviewed during today's visit. Incontinence of feces, unspecified fecal incontinence type The patient is seeing a expert medical writer for this condition, treatment is deferred to that specialist. Correspondence from that specialist and any available testing were reviewed during today's visit. Irritable bowel syndrome with constipation The patient is seeing a expert medical writer for this condition, treatment is deferred to that specialist. Correspondence from that specialist and any available testing were reviewed during today's visit. Pseudopolyposis of colon, unspecified complication status, unspecified part of colon (CMS/HCC) The patient is seeing a expert medical writer for this condition, treatment is [...] left foot The patient is seeing a expert medical writer for this condition, treatment is deferred to that specialist. Correspondence from that specialist and any available testing were reviewed during today's visit. Acquired pes planovalgus of right foot The patient is seeing a expert medical writer for this condition, treatment is [...] of nail The patient is seeing a expert medical writer for this condition, treatment is deferred to that specialist. Correspondence from that specialist and any available testing were reviewed during today's visit. Fat pad atrophy of foot The patient is seeing a expert medical writer for this condition, treatment is deferred to that specialist. Correspondence from that specialist and any available testing were reviewed during today's visit. Hallux limitus of left foot The patient is seeing a expert medical writer for this condition, treatment is deferred to that specialist. Correspondence from that specialist and any available testing were reviewed during today's visit. Hallux limitus of right foot The patient is seeing a expert medical writer for this condition, treatment is deferred to that specialist. Correspondence from that specialist and any available testing were reviewed during today's visit. Hallux valgus of left foot The patient is seeing a expert medical writer for this condition, treatment is deferred to that specialist. Correspondence from that specialist and any available testing were reviewed during today's visit. Hallux valgus of right foot The patient is seeing a expert medical writer for this condition, treatment is deferred to that specialist. Correspondence from that specialist and any available testing were reviewed during today's visit. Hammertoe of left foot The patient is seeing a expert medical writer for this condition, treatment is deferred to that specialist. Correspondence from that specialist and any available testing were reviewed during today's visit. Hammertoe of right foot The patient is seeing a expert medical writer for this condition, treatment is deferred to that specialist. Correspondence from that specialist and any available testing were reviewed during today's visit. Nail deformity The patient is seeing a expert medical writer for this condition, treatment is deferred to that specialist. Correspondence from that specialist and any available testing were reviewed during today's visit. Primary osteoarthritis of both knees The patient is seeing a expert medical writer for this condition, treatment is [...] both ears The patient is seeing a expert medical writer for this condition, treatment is deferred to that specialist. Correspondence from that specialist and any available testing were reviewed during today's visit. Sensorineural hearing loss (SNHL), bilateral The patient is seeing a expert medical writer for this condition, treatment is [...] Pre-ulcerative calluses The patient is seeing a expert medical writer for this condition, treatment is [...] unspecified type The patient is seeing a expert medical writer for this condition, treatment is [...] partial colectomy The patient is seeing a expert medical writer for this condition, treatment is deferred to that specialist. Correspondence from that specialist and any available testing were reviewed during today's visit. Ganglion cyst The patient is seeing a expert medical writer for this condition, treatment is [...] choroidal neovascularization The patient is seeing a expert medical writer for this condition, treatment is deferred to that specialist. Correspondence from that specialist and any available testing were reviewed during today's visit. Vitreous hemorrhage, bilateral The patient is seeing a expert medical writer for this condition, treatment is deferred to that specialist. Correspondence from that specialist and any available testing were reviewed during today's visit. Follow up for Appointment As Scheduled. Electronically signed by Analy Hammond PA-C on July 02, 2024 documented in this encounterSSM Health Cardinal Glennon Children's [id number] History of Present illness Narrative* Conrado Ambriz [...] (CMS/HCC) Knee problem Macular degeneration Onychomycosis Osteoporosis ([facility]) Rotator cuff tear, left Rotator cuff tear, right Sepsis secondary to UTI ([facility]/HCC) 04/30/2022 Type 2 diabetes mellitus ([facility]) Visual impairment w/corrective lenses Past Surgical History: [...] need - Influenza, high-dose seasonal, quadrivalent, PF (TUZ996) (Fluzone High Dose Quad North 0.7mL dose) [...] No follow-ups on file. documented in this encounterSSM Health Cardinal Glennon Children's [id number] [facility] History of Present illness Narrative* Prem Morales [...] with debridement of toenails at home with rosetteIndigio board, not using same surface twice, to [...] therapy at this time. documented in this encounterSSM Health Cardinal Glennon Children's [id number] Evaluation note* Encounter Date Diagnosis Assessment Notes Treatment Notes Treatment Clinical Notes Jul, Diarrhea (ICD-10 - R19.7) Stool sutdies as indicated above Start Imodium 1 tablet every morning Flex sig Jul,Fecal incontinence (ICD-10 - R15.9) [employer] Other 12-17-2021 Reason for visit NarrativePATIENT HERE AT THE REQUEST OF DR. AMBRIZ FOR EVALUATION & TREATMENT OF DIARRHEA, 08/14/21 OBTAIN ED COLONOSCOPY FROM [employer] MESSAGE AT DR MACKEY'S OFFICE FOR PATHOLOGY REPORT TO BE FAXEDNort [employer] Other 09-22-2021 NoteOPERATIVE NOTE OPERATION DATE: 05-20-21 [...] Room in good condition. cc:Dr. Conrado Ambriz. [facility] Signed and Approved by: DR JESSICA MACKEY . 05/20/2021 11:18:00[facility] noteNo InformationNort [employer] Other Evaluation noteNo assessment information available [facility] Work Phone: Evaluation note* Diagnosis Onset Date Resolution Status Change in bowel habits acuteChange in stool caliberacuteIrritable bowel syndrome with constipationacute Rectal bleedingacute [facility] Work Phone: Evaluation note* Diagnosis Mixed hyperlipidemia (CMS/HCC)- Primary Mixed hyperlipidemia Type 2 diabetes mellitus with other neurologic complication, without long-term current use of insulin (CMS/HCC) Flu vaccine need Acquired hypothyroidism (CMS/HCC) Unspecified hypothyroidism Benign essential hypertension (CMS/HCC) Essential hypertension, benign Acute non-recurrent sinusitis, unspecified location documented in this encounter [facility] HealthcareEvaluation note* Diagnosis Onset Date Resolution Status Change in bowel habits acuteChange in stool caliberacuteIrritable bowel syndrome with constipationacute Rectal bleedingacuteIrritable bowel syndrome with constipationacute [facility] Work Phone: Evaluation note* Diagnosis [...] Risk for falls Psoriasis, unspecified ([facility]) Pre-ulcerative calluses Other allergic rhinitis Mixed hyperlipidemia ([facility]) Mixed hyperlipidemia Macular degeneration of both eyes, unspecified type Localized edema Edema Impaired ambulation History of partial colectomy Ganglion cyst Unspecified ganglion Skin tear of lower leg without complication, left, initial encounter Exudative age-related macular degeneration, bilateral, with inactive choroidal neovascularization ([facility]) Vitreous hemorrhage, bilateral ([facility]) Vitreous hemorrhage documented in this encounter [facility] HealthcareEvaluation note* Diagnosis Onychomycosis- Primary Dermatophytosis of nail Pain around toenail, left foot Type 2 diabetes mellitus with other neurologic complication, 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 detention insulin use ([facility]) Localized edema Edema documented in this encounter [facility] HealthcareEvaluation note* Diagnosis Acute cystitis without hematuria- Primary Gastroesophageal reflux disease, 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 esophagitis present Acute non-recurrent sinusitis, unspecified location documented in this encounter [facility] HealthcareEvaluation note* Diagnosis Onychomycosis- Primary Dermatophytosis of nail Pain around toenail, left foot Nail deformity Unspecified disease of nail Type 2 diabetes mellitus with other neurologic complication, 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 detention insulin use ([facility]) Localized edema Edema Ingrown toenail Ingrowing nail documented in this encounter [facility] HealthcareEvaluation note* Diagnosis Type 2 diabetes mellitus with other neurologic complication, without long-term current use of insulin ([facility])- Primary Gastroesophageal reflux disease, 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 esophagitis present Mixed stress and urge urinary incontinence Mixed incontinence urge and stress (male)(female) documented in this encounter [facility] HealthcareEvaluation note* Diagnosis Ingrown toenail of both feet- Primary Onychomycosis Dermatophytosis of nail Pain around toenail, left foot Pain around toenail, right foot Type 2 diabetes mellitus with other neurologic complication, 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 oil heaterman insulin use ([facility]) Localized edema Edema Nail deformity Unspecified disease of nail documented in this encounter [facility] HealthcareEvaluation note* Diagnosis Encounter for diabetic foot exam ([facility])- Primary Type 2 diabetes mellitus with other neurologic complication, without long-term current use of insulin ([facility]) Neuropathic pain Acute non-recurrent frontal sinusitis Restless [...] hypertension (CMS/HCC) Essential hypertension, benign Acquired hypothyroidism (CMS/[facility]) Unspecified hypothyroidism Degenerative disc disease, lumbar documented in this encounter [facility]* Diagnosis Type 2 diabetes mellitus with other neurologic complication, 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 detention insulin use ([facility]) Onychomycosis Dermatophytosis of nail Nail deformity Unspecified disease of nail Pain around toenail, left foot Localized edema Edema documented in this encounter [facility]* Diagnosis Type 2 diabetes mellitus with other neurologic complication, without long-term current use of insulin- Primary Acute non-recurrent frontal sinusitis Mixed hyperlipidemia (CMS/HCC) Mixed hyperlipidemia Acquired hypothyroidism (CMS/HCC) Unspecified hypothyroidism Type 2 diabetes mellitus with peripheral neuropathy ([facility]) documented in this encounter [facility]* Diagnosis Onychomycosis Dermatophytosis of nail Nail deformity Unspecified disease of nail Type 2 diabetes mellitus with other neurologic complication, 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 oil heaterman insulin use ([facility]) Localized edema Edema documented in this encounter [facility]* Diagnosis Environmental and seasonal allergies- Primary Impacted cerumen, right ear Thyroid nodule Nontoxic uninodular goiter Ingrowing toenail Ingrowing nail Balance problem Abnormality of gait documented in this encounter [facility]* Diagnosis Impacted cerumen, right ear- Primary Environmental and seasonal allergies Ingrowing toenail Ingrowing nail documented in this encounter [facility]* Diagnosis Arthritis of both midfeet- Primary Bilateral foot pain Type 2 diabetes mellitus with other neurologic complication, 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 detention insulin use ([facility]) Primary osteoarthritis of left ankle Hammertoes of both feet Hallux limitus of left foot Hallux limitus of right foot Fat pad atrophy of foot documented in this encounter [facility]* Diagnosis Thyroid nodule- Primary Nontoxic uninodular goiter documented in this encounter [facility] HealthcareHistory and physical note Author Sadiq Barton [facility] May 23, 2024 9:09amNote Date/TimeSept2023 9:10am[place] [address] Gastroenterology H&P Signed Patient: James Weaver MR#: [id number] : 1935 Acct:[id number] Age/Sex: 88 / F Adm Date: 4 Loc: Room: Type: [facility] Attending Dr: Sadiq Barton MD Copies to: MD Conrado Tanner II, MD~ Date of Service: 05/23/2024 HISTORY & PHYSICAL: Patient's history with special attention to the cardiovascular, pulmonary systems and the current problem was reviewed with the patient immediately prior to the procedure. Present medications and doses reviewed in the EMR. Allergies and pertinent laboratory tests were also re viewedat this time in the EMR. The physical [...] <Electronically signed by Sadiq Barton MD> 05/23/24908 [facility] Work Phone: History general Narrative - Reported* Type Description Date Medical History Type 2 diabetes Medical HistoryosteoporosisMedical HistoryhypertensionMedical History diverticulosisMedical HistoryarthritsMedical Historymacular degenerationSurgical Historyfatty tumor left shoulderSurgical Historyright rotatorcuffSurgical Historyleft rotator cuffSurgical Historyexcision of ganglion cystSurgical HistorycholycyctectomySurgical HistoryhysterectomySurgical Historylumbar back surgeryHospitalization HistorySEE [facility] Other Hospital Discharge instructions Additional Instructions Continue current meds Follow-up with your private physician Return if symptoms are worseThe [facility] Work Phone: Hospital Discharge instructions Additional Instructions [...] problems. -Follow up with PCP. -Office number [phone].[facility] Work Phone: Reason for referral (narrative)No reason for referral information availableOhiohealth Hardin [facility] Work Phone: Summary Purpose Family History No Family History Records Found Relationship Condition Age at Onset Recorded Date/T sher father Heart problem Unknown Relationship Condition Age at Onset Recorded Date/T sher father Heart problem Unknown fatherDeceasedUnknownHeart diseaseUnknownmotherHistory of strokeUnknownDeceased Unknown Relationship Condition Age at Onset Recorded Date/T sher father Heart problem Unknown DeceasedUnknownHeart diseaseUnknownmotherDeceasedUnknownHistory of strokeUnknown Advance Directives No Advanced Directives Records Found [...] Pedro ry constipation, rectal bleeding. constipation, rectal bleeding.Reason for VisitChange in bowel habits Change in stool caliber Irritable bowel syndrome with constipation Rectal bleeding Chief Complaint IBS-C/Ref Conrado Pedro ry constipation, rectal bleeding. constipation, rectal bleeding. 4 week follow up-constipationReason for VisitChange in bowel habits Change in stool caliber Irritable bowel syndrome [...] Admit Date 8 week follow up-constipation/gerd Augus 2024 9:32am Chief Complaint Admit Date 8 week follow up-constipation/gerd Augus t 2024 9:32am 8 w f/u constipation/GERD June 14, 2025 10:00am Reason for Visit Admit Date Chronic GERD April 19, 2025 9: 32am Irritable bowel syndrome with constipati on April 19, 2025 9:32am Chronic GERD June 14, 2025 1 0:00am Irritable bowel syndrome with constipati on June 14, 2025 10:00am Additional Source Comments INFORMATION SOURCE (unrecogn ized section and content) DATE CREATED AUTHOR 06/04/2021 [facility] DATE CREATED AUTHOR AUTHOR'S ORGANIZ ATION 01/18/2022 [facility] DATE CREATED AUTHOR AUTHOR'S ORGANIZ ATION 05/07/2022 [facility] DATE CREATED AUTHOR AUTHOR'S ORGANIZ ATION 10/16/2024 [facility] DATE CREATED AUTHOR AUTHOR'S ORGANIZ ATION 06/26/2025 [facility] EPIC DATE CREATED AUTHOR AUTHOR'S ORGANIZ ATION 07/07/2025 [facility] REASON FOR VISIT (unrecogniz ed section and content) ReasonCommentsDiabetesSinusitisReasonCommentsSinusitisReasonCommentsGERDTaking omeprazole as directedrecheck for UTIMed RefillOmeprazole-- [facility] PsoriasisPt has seen derm in past dx: psoriasis pt is wanting to know what causes psoriasis and if there is something besides the cream to treat itReason CommentsSinusitisDM Foot CareNight SweatsReasonCommentsDiabetesShoulder Injury would like to have ears and chest checkedPt finished abx feels better but would like ears and chest checked againReasonCommentsPainSpecialtyDiagnoses / ProceduresReferred By ContactReferred To ContactOrthopaedic Surgery Diagnoses Primary osteoarthritis of right shoulder Conrado Ambriz MD [address] [facility] [address] [place] [address] Phone: tel: fax: Jr. Bill Marcum, DO [address] [place] [address] Phone: tel: fax: Referral IDStatusReasonStart DateExpiration DateVisits RequestedVisits [id number] [facility] Required [id number] RefillReasonCommentsThyroid NoduleThyroid nodule US Thyroid TBH 05/01/25SpecialtyDiagnoses / ProceduresReferred By Contact Referred To ContactOtolaryngology Diagnoses Thyroid nodule Procedures NE OFFICE/OUTPATIENT NEW HIGH MDM 60 MINUTES Conrado Ambriz MD [address] [facility] [address] [place] [address] Phone: tel: fax: Erasmo Williamson MD [address] [facility] [address] [place] [address] Phone: tel: fax: Referral IDStatusReasonStart DateExpiration DateVisits RequestedVisits [id number] Specialty Services Required Care Teams (unrecognized sec tion and content) Team Status: Active Member Role Status Dates Conrado Ambriz II MD Primary Care Provider Active Team Status: Inactive Member Role Status Dates Fernando Diamond MD Emergency Provider Active Conrado Ambriz II [facility] Care ProviderActive Team Status: Inactive Member Role Status Dates Conrado Ambriz II MD Primary Care Provider Active Start: April 16, 2024 End: April 16Brady Thomas ProviderActiveStart: April 16, 2024 End: April 16, 2024 Team Status: Inactive Member Role Status Dates Conrado Ambriz II MD Primary Care Provider Active Start: May 23, 2024 End: May 23Brady Thomas ProviderActiveStart: May 23, 2024 End: May 23, 2024 Team Status: Active Member Role Status Dates Conrado Ambriz II MD Primary Care Provider Active Start: May 23, 2024 Brady Tanner Provider, Other ProviderActiveStart: May 23, 2024 Team MemberRelationshipSpecialtyStart DateEnd Date Conrado Ambriz MD [address] [facility] [address] [place] [address] PCP - GeneralInternal Medicine01/19/23 Conrado Ambriz MD [address] [facility] [address] [place] [address] PCP - [facility]10/28/23Team MemberRelationshipSpecialtyStart DateEnd Date Conrado Ambriz MD [address] [place] [address] [place] [address] [facility] - [facility]/23 Conrado Ambriz MD [address] [place] [address] [place] [address] PCP - [facility]10/28/23 Team Status: Inactive Member Role Status Dates Conrado Ambriz II MD Primary Care Provider Active Start: June 20, 2024 End: June 20rocío Dominguez APRNAtvincenzo ProviderActiveStart: June 20, 2024 End: June 20, 2024Team MemberRelationshipSpecialtyStart DateEnd Date Conrado Ambriz MD [address] [place] [address] [place] [address] PCP - [facility]01/19/23 Conrado Ambriz MD [address] [place] [address] [place] [address] [facility] - [facility]10/28/23Team MemberRelationshipSpecialtyStart DateEnd Date Conrado Ambriz MD [address] [place] [address] [place] [address] PCP - [facility]01/19/23 Conrado Ambriz MD [address] [place] [address] [place] [address] PCP - [facility]10/28/23Team MemberRelationshipSpecialtyStart DateEnd Date Conrado Ambriz MD [address] [place] [address] [place] [address] PCP - [facility]01/19/23 Conrado Ambriz MD [address] [place] [address] [place] [address] [facility] - [facility]10/28/23Te MemberRelationshipSpecialtyStart DateEnd Conrado Ambriz MD [address] [place] [address] [place] [address] [facility] - [facility]01/19/23 Conrado Ambriz MD [address] [place] [address] [place] [address] [facility]10/28/23Te MemberRelationshipSpecialtyStart DateEnd Date Conrado Ambriz MD [address] [place] [address] [place] [address] [facility] - [facility]01/19/23 Conrado Ambriz MD [address] [place] [address] [place] [address] [facility]10/28/23Te MemberRelationshipSpecialtyStart DateEnd Date Conrado Ambriz MD [address] [place] [address] [place] [address] [facility]01/19/23 Conrado Ambriz MD [address] [place] [address] [place] [address] [facility]10/28/23Te MemberRelationshipSpecialtyStart DateEnd Date Conrado Ambriz MD [address] [place] [address] [place] [address] PCP - [facility]01/19/23 Conrado Ambriz MD [address] [place] [address] [place] [address] [facility] - [facility]10/28/23Team MemberRelationshipSpecialtyStart DateEnd Conrado Ambriz MD [address] [place] [address] [place] [address] PCP - [facility]01/19/23 Conrado Ambriz MD [address] [place] [address] [place] [address] [facility] - [facility]10/28/23Team MemberRelationshipSpecialtyStart DateEnd Conrado Ambriz MD [address] [place] [address] [place] [address] [facility]01/19/23 Conrado Ambriz MD [address] [place] [address] [place] [address] [facility]10/28/23 Team Status: Inactive Member Role Status Dates Conrado Ambriz II MD Primary Care Provider Active Start: July 24, 2024 End: July 24Rordigo Jack ProviderActiveStart: July 24, 2024 End: July 24, 2024 Team Status: Inactive Member Role Status Dates Conrado Ambriz II MD Primary Care Provider Active Start: October 03, 2024 End: October 03, 2024Rodrigo Pierre ProviderActiveStart: October 03, 2024 End: October 03, 2024 Team Status: Inactive Member Role Status Dates Conrado Ambriz II MD Primary Care Provider Active Start: October 15, 2024 End: October 15, 2024Rodrigo Pierre ProviderActiveStart: October 15, 2024 End: October 15, 2024Team MemberRelationshipSpecialtyStart DateEnd Date Conrado Ambriz MD [address] [place] [address] [place] [address] PCP - [facility]01/19/23 Conrado Ambriz MD [address] [place] [address] [place] [address] PCP - [facility]10/28/23 Kristel Rain, VIDA Clinical [facility]ocateEm[facility]10/05/24Team MemberRelationshipSpecialtyStart Date End Date Conrado Ambriz MD [address] [place] [address] [place] [address] PCP - [facility]01/19/23 Conrado Ambriz MD [address] [place] [address] [place] [address] PCP - [facility]10/28/23 Kristel Rain, VIDA Clinical [facility]10/05/24Team MemberRelationshipSpecialtyStart Date End Date Conrado Ambriz MD [address] [place] [address] [place] [address] PCP - [facility]01/19/23 Conrado Ambriz MD [address] [place] [address] [place] [address] PCP - [facility]10/28/23 Kristel Rain RN Clinical [facility]10/05/24 Team Status: Inactive Member Role Status Dates Conrado Ambriz II MD Primary Care Provider Active Start: November 14, 2024 End: November 14, 2024Rodrigo Pierre ProviderActiveStart: November 14, 2024 End: November 14, 2024Team MemberRelationshipSpecialtyStart DateEnd Date Conrado Ambriz MD [address] [place] [address] [place] [address] PCP - GeneralInternal Medicine01/19/23 Conrado Ambriz MD [address] [place] [address] [place] [address] PCP - [facility]10/28/23 Merna Lr [facility] 11/16/24Team MemberRelationshipSpecialtyStart DateEnd Date Conrado Ambriz MD [address] [place] [address] [place] [address] [facility]/23 Conrado Ambriz MD [address] [place] [address] [place] [address] PCP - [facility]10/28/23 Merna Lr [facility] 11/16/24Team MemberRelationshipSpecialtyStart DateEnd Date Conrado Ambriz MD [address] [place] [address] [place] [address] [facility]01/19/23 Conrado Ambriz MD [address] [place] [address] [place] [address] PCP - [facility]10/28/23 Merna Lr [facility] 11/16/24Team MemberRelationshipSpecialtyStart DateEnd Date Conrado Ambriz MD [address] [place] [address] [place] [address] PCP - GeneralInternal Medicine01/19/23 Conrado Ambriz MD [address] [place] [address] [place] [address] PCP - O [facility]10/28/23 Merna Lr [facility] 11/16/24Team MemberRelationshipSpecialtyStart DateEnd Date Conrado Ambriz MD [address] [place] [address] [place] [address] PCP - GeneralInternal Medicine01/19/23 Conrado Ambriz MD [address] [place] [address] [place] [address] [facility] - [facility]10/28/23 Merna Lr [facility] 11/16/24Team MemberRelationshipSpecialtyStart DateEnd Date Conrado Ambriz MD [address] [place] [address] [place] [address] [facility] - [facility]/19/23 Conrado Ambriz MD [address] [place] [address] [place] [address] [facility] - [facility]10/28/23 Merna Lr [facility] 11/16/24Team MemberRelationshipSpecialtyStart DateEnd Date Conrado Ambriz MD [address] [place] [address] [place] [address] [facility] - [facility]01/19/23 Conrado Ambriz MD [address] [place] [address] [place] [address] [facility] - [facility]10/28/23 Merna Lr [facility] 11/16/24 Team Status: Inactive Member Role Status Dates Conrado Ambriz II MD Primary Care Provider Active Start: January 08, 2025 End: January 08, 2025Rodrigo Pierre ProviderActiveStart: January 08, 2025 End: January 08, 2025Team MemberRelationshipSpecialtyStart DateEnd Date Conrado Ambriz MD [address] [place] [address] [place] [address] [facility] - [facility]01/[facility]/23 Conrado Ambriz MD [address] [place] [address] [place] [address] [facility] - [facility]10/28/23 Merna Lr, [facility] 11/16/24Team MemberRelationshipSpecialtyStart DateEnd Date Conrado Ambriz MD [address] [place] [address] [place] [address] PCP - [facility]01/19/23 Conrado Ambriz MD [address] [place] [address] [place] [address] [facility] - [facility]10/28/23 Merna Lr, [facility] 11/16/24Team MemberRelationshipSpecialtyStart DateEnd Date Conrado Ambriz MD [address] [place] [address] [place] [address] [facility] - [facility]01/19/23 Conrado Ambriz MD [address] [place] [address] [place] [address] PCP - [facility]10/28/23 Merna Lr [facility] [address] [place] [address] [place] [address] 11/16/24Team MemberRelationshipSpecialtyStart DateEnd Date Conrado Ambriz MD [address] [place] [address] [place] [address] [facility] - [facility]01/19/23 Conrado Ambriz MD [address] [place] [address] [place] [address] PCP - [facility]10/28/23 Merna Lr LPN [address] [place] [address] [place] [address] 11/16/24Team MemberRelationshipSpecialtyStart DateEnd Date Conrado Ambriz MD [address] [place] [address] [place] [address] PCP - [facility]01/19/23 Conrado Ambriz MD [address] [place] [address] [place] [address] [facility] - [facility]10/28/23 Merna Lr LPN [address] [place] [address] [place] [address] 11/16/24 Team Status: Inactive Member Role Status Dates Conrado Ambriz II MD Primary Care Provider Active Start: April 19, 2025 End: April 19, 2025Nayan Dominguez APRNAtvincenzo ProviderActiveStart: April 19, 2025 End: April 19, 2025Team MemberRelationshipSpecialtyStart DateEnd Date Conrado Ambriz MD [address] [place] [address] [place] [address] PCP - [facility] Medicine01/19/23 Conrado Ambriz MD [address] [place] [address] [place] [address] PCP - [facility]10/28/23 Merna Lr LPN [address] [place] [address] [place] [address] 11/16/24Team MemberRelationshipSpecialtyStart DateEnd Date Conrado Ambriz MD [address] [place] [address] [place] [address] PCP - GeneralInternal Medicine01/19/23 Conrado Ambriz MD [address] [place] [address] [place] [address] PCP - [facility]10/28/23 Merna Lr LPN [address] [place] [address] [place] [address] 11/16/24Team MemberRelationshipSpecialtyStart DateEnd Date Conrado Ambriz MD [address] [place] [address] [place] [address] [facility] - [facility]01/19/23 Conrado Ambriz MD [address] [place] [address] [place] [address] PCP - [facility]10/28/23 Merna Lr LPN [address] [place] [address] [place] [address] 11/16/24Team MemberRelationshipSpecialtyStart DateEnd Date Conrado Ambriz MD [address] [place] [address] [place] [address] PCP - GeneralInternal Medicine01/19/23 Conrado Ambriz MD [address] [place] [address] [place] [address] PCP - [facility]10/28/23 Merna Lr LPN [address] [place] [address] [place] [address] 11/16/24Team MemberRelationshipSpecialtyStart DateEnd Date Conrado Ambriz MD [address] [place] [address] [place] [address] [facility]CP - [facility]01/19/23 Conrado Ambriz MD [address] [place] [address] [place] [address] PCP - [facility]10/28/23 Merna Lr LPN [address] [place] [address] [place] [address] 11/16/24 Team Status: Active Member Role/Relationship Status Dates Conrado Ambriz II MD Primary Care Provider Active Team Status: Inactive Member Role/Relationship Status Dates Conrado Ambriz II MD Primary Care Provider Active Start: April 19, 2025 End: April 19, 2025Rodrigo Pierre ProviderActiveStart: April 19, 2025 End: April 19, 2025 Team Status: Inactive Member Role/Relationship Status Dates Conrado Ambriz II MD Primary Care Provider Active Start: June 14, 2025 End: June 14, 2025Rodrigo Pierre ProviderActiveStart: June 14, 2025 End: June 14, 2025Team MemberRelationshipSpecialtyStart DateEnd Date Conrado Ambriz MD [address] [place] [address] [place] [address] [facility] - [facility]01/19/23 Conrado Ambriz MD [address] [place] [address] [place] [address] PCP - [facility]10/28/23 Merna Lr LPN [address] [facility] [address] [place] [address] 11/16/24 Goals (unrecognized section and content) Goals [...] BE BASED ON THE PRIMARY CLINICAL RECORDS. [facility] provides no warranty or guarantee of the accuracy or completeness of information in this document.
[2025-07-22] MEDS: DIPHTH,PERTUSS(ACELL),TET VAC 0.5 ML SYRINGE IM (10:35)
--- NOTE | 2025-07-22 10:48 | CT_ITS ---
The [address] [address] Patient Name: JAMES WEAVER MRN: [id number] date: 1935 Sex: F Assigned Patient Location: ER Current Patient Location: .[facility] Accession/Order Number: [id number] Exam Date: 07/22/2025 10:57 Report Date: 07/22/2025 11:57 At the request of: SARAH DOMÍNGUEZ MD Procedure: CT hip RT wo con CT RIGHT HIP WITHOUT CONTRAST WITH 3-D RECONSTRUCTIONS CLINICAL DATA: Patient fell and has right hip pain. Suspected subcapital hip fracture on plain film. COMPARISON: Plain films 07/22/[address] 11/23/2018 Spiral axial unenhanced images were obtained through the right hip. Coronal and 3-D volume rendered reconstructions were reviewed. This CT exam was performed using one or more following dose reduction techniques: Automated exposure control, adjustment of the mA and/or kV according to patient size, or use of iterative reconstruction technique. There is osteopenia. An impacted, mildly comminuted right subcapital hip fracture is confirmed. Longitudinally oriented lucency at the periphery of the superior acetabulum was not present on the prior CT. Fracture at the margin of the acetabulum at the site is not excluded. No additional acute fractures are noted. There is no dislocation at the hip. The hip joint space is maintained. Minor marginal spurring is present at the femoral head and acetabulum where subchondral cystic change is also seen. A bone island is again noted at the pubic symphysis on the right. There is mild subcutaneous edema. There is no prominent hip effusion or hematoma. There is atherosclerotic disease within the [id number]. CT/CT hip RT wo con IMPRESSION: CONFIRMATION OF SUBCAPITAL RIGHT HIP FRACTURE. POSSIBLE ADDITIONAL FRACTURE INVOLVING THE PERIPHERY OF THE SUPERIOR RIGHT ACETABULUM. OSTEOPENIA AND DEGENERATIVE CHANGES. Impression dictated by: Analy Odell M.D. 07/22/2025 11:57 AM Dictation Location: [place] [address] Electronically authenticated by: [id number] Y Date: 07/22/2025 11:57
--- NOTE | 2025-07-22 12:06 | ECG_ITS ---
The [facility] Test Date: 2025-07-22 Pat Name: JAMES WEAVER Department: Room: - Gender: Female Beam Doffer: : 1935 Requested By: MARCOS SANTOS Order Number: [id number] Alysa MD: VALERIANO CARDENAS M.D. Measurements Intervals Allen Rate: 82 P: 30 HI: 178 QRS: 63 QRSD: 130 T: 44 QT: 408 QTc: 447 Interpretive Statements 1100 Sinus rhythm 1102 Sinus arrhythmia 2450 Right bundle branch block 9150 abnormal ECG Compared to ECG 04/12/2025 10:12:53 Right bundle-branch block now present Ventricular premature complex(es) no longer present Electronically Signed On 07-22-2025 19:49:18 EST by VALERIANO CARDENAS M.D.
[2025-07-22 12:33] LABS: Hematocrit 42.4 % (36.0-48.0); Hemoglobin 13.9 g/dL (12.0-16.0); Immature Granulocytes Abs Auto 0.07 10^3/uL (0.00-0.03); Immature Granulocytes Pct Auto 0.6 % (0.0-0.5); Lymphocytes Absolute Auto 1.6 10^3/uL (1.2-3.8); Mean Corpuscular HGB Conc 32.8 g/dL (29.9-35.2); Mean Corpuscular Hemoglobin 29.0 pg (26.7-34.0); Mean Corpuscular Volume 88.5 fL (81.0-99.0); Platelet Count 206 10^3/uL (150-450); Red Blood Count 4.79 10^6/uL (4.20-5.40); White Blood Count 12.7 10^3/uL (4.0-11.0)
[2025-07-22 12:46] LABS: Anion Gap 9.7; Blood Urea Nitrogen 15.0 mg/dL (7.0-18.0); Calcium 9.2 mg/dL (8.5-10.1); Carbon Dioxide 29.5 mmol/L (21.0-32.0); Chloride 103 mmol/L (98-107); Estimated GFR (African America >60 (>=60 mL/min/1.73m^2); Estimated GFR (Non-African Ame >60 (>=60 mL/min/1.73m^2); Glucose 236 mg/dL (74-106); Potassium 4.2 mmol/L (3.5-5.1); Sodium 138 mmol/L (136-145)
[2025-07-22 14:36] VITALS: BP 165/79; PULSE 73; O2SAT 95
[2025-07-22 14:53] VITALS: BP 165/79; PULSE 73; O2SAT 95
== END 2025-07-22 14:50 | disposition short-term general hospital (02) ==
PROVIDERS: Emergency Provider Emergency Medicine; PCP Internal Medicine
DX: S72.011A Unspecified intracapsular fracture of right femur, initial encounter for closed fracture (principal); M85.871 Other specified disorders of bone density and structure, right ankle and foot; W18.39XA Other fall on same level, initial encounter
CPT/HCPCS: 36415; 70450; 73030; 73502; 73610; 73630; 73700; 76376; 80048; 85025; 90471; 90715; 93005; 99285